=== PATIENT | male | born 1945 | race Caucasian/White ===

== ENCOUNTER → 2023-10-26 06:16 | Outpatient (REF) | payer OTHER, SELFPAY ==
[2023-10-26 07:37] LABS: % Basophils 0.9 % (0-2); % Eosinophils 2.3 % (0-6); % Immature Granulocytes 0.4 % (0-0.5); % Lymphocytes 27.1 % (20.5-51.1); % Monocytes 12.2 % (1.7-9.3); % Neutrophils 57.1 % (42.2-75.2); Absolute Basophils 0.1 10^3/uL (0-0.2); Absolute Eosinophils 0.1 10^3/uL (0-0.7); Absolute Lymphocytes 1.5 10^3/uL (1.2-3.4); Absolute Monocytes 0.7 10^3/uL (0.1-0.6); Absolute Neutrophils 3.2 10^3/uL (1.4-6.5); Hematocrit 37.7 % (39.0-52.0); Hemoglobin 12.9 g/dL (13.0-18.0); Mean Corp Hgb Conc. 34.2 g/dL (33.0-37.0); Mean Corpuscular Hgb 31.5 pg (27.0-31.0); Mean Platelet Volume 11.4 fL (7.4-10.4); Nucleated Red Blood Cells % 0 % (-); Platelet Count 159 10^3/uL (130-400); Red Cell Dist. Width 13.5 % (11.5-14.5); White Blood Cell Count 5.6 10^3/uL (4.8-10.8)
[2023-10-26 08:18] LABS: ALT (SGPT) 26 U/L (0-50); AST (SGOT) 34 U/L (17-59); Albumin 4.1 g/dl (3.5-5.0); Alkaline Phosphatase 80 U/L (38-126); Blood Urea Nitrogen 22 mg/dl (9-20); Calcium 8.9 mg/dl (8.4-10.2); Carbon Dioxide 26 mmol/L (22-30); Chloride 111 mmol/L (98-107); Glucose 97 mg/dl (70-99); HDL Cholesterol 56 mg/dl; LDL Cholesterol, Calculated 80 mg/dl; Potassium 3.8 mmol/L (3.5-5.1); Sodium 139 mmol/L (135-145); Total Bilirubin 0.9 mg/dl (0.2-1.3); Total Cholesterol 145 mg/dl (50-199); Triglyceride 49 mg/dl (10-149); Very Low Density Lipoprotein 9 mg/dl (0-30); eGFR > 60.00
[2023-10-26 08:38] LABS: TSH Reflex To Free T4 4.21 uIU/ml (0.47-4.68)
[2023-10-26 08:45] LABS: Glycohemoglobin (HgbA1c) 6.9 % (4.0-5.6)
== END ==
LOC: REG 06:16
PROVIDERS: ATTENDING PHYSICIAN Family Medicine
DX: E10.59 Type 1 diabetes mellitus with other circulatory complications (principal); I50.32 Chronic diastolic (congestive) heart failure; I25.10 Atherosclerotic heart disease of native coronary artery without angina pectoris; G70.00 Myasthenia gravis without (acute) exacerbation; E03.9 Hypothyroidism, unspecified; H25.9 Unspecified age-related cataract
CPT/HCPCS: 36415; 80053; 80061; 83036; 84443; 85025

== ENCOUNTER 2023-12-06 12:46 | Inpatient (IN) | payer OTHER, SELFPAY ==
[2023-12-06] VITALS (27 sets, daily range): BP systolic 94–148; BP diastolic 49–85; BMI 26.1
--- NOTE | 2023-12-06 09:36 | ED.GENMED ---
History of Present Illness
General
Chief Complaint: Swallowing Problem
Source: patient
Exam Limitations: none
Time Seen by Provider: 12/06/23 08:58
Nursing documentation reviewed up to this point in time: agreed with
Travel History
Have you had any contact with someone who has COVID-19?: No
Do you have any symptoms of coronavirus? Fever > 100 degrees, chills, cough, shortness of breath, sore throat, loss of taste or smell, muscle aches, or headache?: No
History of Present Illness
History of Present Illness:
The patient is a very nice 78-year-old man who arrives from home by ambulance after complaining that he is unable to swallow any pills this morning. Patient attributes this to an exacerbation of his myasthenia gravis. He reports that he woke up
early this morning with a low blood sugar. He reports he tried to drink orange juice and had difficulty swallowing the juice and developed a burning taste in his throat. He reports he was able to finally get some food down to raise his blood
sugar. He reports that he later tried to take his medication and was unable to swallow the pills. He reports he was recently started on infusions for his myasthenia gravis but unfortunately developed a rash so they were discontinued by Dr. Blue.
He reports that Dr. Blue recently ordered him new medication for his myasthenia gravis but his insurance company has not yet agreed to cover it. He reports he also has weakness getting words out but he does not feel that this is worse today than
usual. He denies any weakness of his arms and legs. He reports he is not had any difficulty walking.
Past History
Past History
ED Past Medical History: Arrthythmia (SA node dysfunction), CAD, HTN, Hypercholesterolemia, IDDM, Hypothyroidism and Other (Cricopharyngeus bar)
ED Past Surgical History: Cardiac (medtronic pacemaker 2007) and Other
Social History
Tobacco: Non-smoker
Alcohol: None
Drug: None
Personal: Other
Living: alone
Employment: Retired
Family History
Family History: Other (Sister with diabetes)
Review of Systems
Review of Systems
Allergies reviewed?: Yes
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
All Other Systems: ROS reviewed and negative except as documented in HPI and ROS
Constitutional: Reports no symptoms
EENT: Reports other
Respiratory: Reports no symptoms
Cardiac: Reports no symptoms
ABD/GI: Reports no symptoms
: Reports no symptoms
Musculoskeletal: Reports no symptoms
Skin: Reports no symptoms
Neurological: Reports no symptoms
Endocrine: Reports no symptoms
Hematologic/Lymphatic: Reports no symptoms
Psychiatric: Reports no symptoms
Phy Exam
Physical Exam
Physical Exam:
Physical Exam
General: no apparent distress, not acutely ill
Neck: supple. no meningeal signs. normal psoterior pharynx
Heart: s1/s2 regular rate and rhythm, no murmur. equal radial pulses.
Lungs: no acute respiratory distress. clear bilaterally
Abdomen: normal bowel sounds. not tender. no CVAT
Neuro: alert and oriented3. no focal neurological deficits. 5 out of 5 strength in all extremities without drift.
Skin: no rash
Psychiatric: well kept. interactive and cooperative
Extremities: no edema. no calf tenderness. negative homans. good distal pulses
Course
Orders/Labs/Results
Orders:
Orders
12/06/23 09:44
Consult Neurology [NEUROLOGY CONSULT] Urgent
Consulting Provider: Dariel Del Rio
Was physician already notified: Yes
Reason for consult: myasthenia gravis flare
12/06/23 09:49
Complete Blood Count/With Diff Urgent
Comprehensive Metabolic Panel Urgent
Abnormal Lab Results
12/06/23
09:49
WBC 4.6 L 10^3/uL
(4.8-10.8)
RBC 4.40 L 10^6/uL
(4.70-6.10)
MPV 11.3 H fL
(7.4-10.4)
Monocytes % 11.9 H %
(1.7-9.3)
Glucose 123 H mg/dl
(70-99)
12/06/23 09:49
12/06/23 09:49
Vital Signs
Initial and Last Documented VS:
Initial Vital Signs
BP
148/64
12/06/23 08:50
Last Documented Vital Signs
Temp Pulse Resp BP Pulse Ox
98.0 F 71 14 130/64 97
12/06/23 08:51 12/06/23 10:30 12/06/23 10:30 12/06/23 10:00 12/06/23 10:30
MDM/Problems Addressed
Differential Diagnosis Includes:
Myasthenia gravis flare, stroke, acute pharyngitis
MDM/Problems Addressed:
Patient presents with acute difficulty swallowing
Chronic conditions affecting care:
Myasthenia gravis
Acute Exacerbation and/or Progression of Chronic Illness:
Patient symptoms likely are consistent with acute on chronic myasthenia gravis
*Pulse Oximetry
Patient hypoxic: no
*EKG
Interpreted by ED Provider?: NA
*Juice Mixer Interpretation
Rate: Juice Mixer- N/A
*Critical Care Note
Total Time (30-74mins, 75-104mins- exclusive of procedures): Not Applicable
Data Reviewed
Review of Other/Old Records Reveals: Discharge Summary (Patient's discharge summary reviewed from 09/12 with flare of myasthenia gravis and got steroids and IVIG)
Source: patient
Patient Management
Social determinants of health affecting care: Living situation
Discussion with other providers: Hospitalist and Other (Dr del rio from neuro saw patient at bedside in ED)
Escalation/DeEscalation of care consider admission/obs:
Pt will be admitted, janell because he is unable to self hydrate and take meds
ED Attending Note
-
Portions of this chart may have been created with voice recognition software.� Occasional wrong word or��sound alike� substitutions may have occurred due to the inherent limitations of voice recognition software.
Discharge Plan
Departure
Patient Disposition: Admit
Date of Disposition: 12/06/23
Time of Disposition: 11:00
Admit to: Med/Surg
Presentation/result/management discussed w/ accepting MD/DO: Hospitalist
Patient with high blood pressure during this ER visit?: Yes
Condition: Good
Covid-19: Not Applicable
Discharge Problem:
acute on chronic myasthenia gravis, myasthenia gravis flare, Dysphagia
Prescriptions:
No Action
atorvastatin 80 MG tablet
80 mg PO DAILY
levothyroxine 112 MCG tablet
112 mcg PO HS
amlodipine 5 MG tablet
5 mg PO DAILY
lisinopril 40 mg tablet
40 mg PO DAILY
clopidogrel 75 MG tablet
75 mg PO DAILY
clobetasol 0.05 % Ointment
1 applic TOPICAL DAILYPRN PRN (Reason: apply to B/L lower legs)
furosemide [Lasix] 20 mg Tablet
20 mg PO DAILYPRN PRN (Reason: swelling)
latanoprost 0.005 % Drops
1 drp BOTH EYES HS
aspirin 81 mg Tablet,Delayed Release (Dr/Ec)
81 mg PO DAILY
insulin aspart U-100 [Novolog U-100 Insulin aspart] 100 unit/mL Solution
0 unit SC .VIA PUMP
Patient Comments:
08/22/2023, patient uses an insulin pump and the units used depends on his carb intake and basal rate. Patient states that he changes his insulin roughly every 6-7 days and that he uses around 20-25 units a day on average.
metoprolol tartrate 25 mg Tablet
25 mg PO BID Qty: 60 0RF
pantoprazole [Protonix] 40 mg tablet,delayed release (DR/EC)
40 mg PO DAILY Qty: 30 0RF
pyridostigmine bromide 60 mg tablet
180 mg PO TID Qty: 270 0RF
Referrals:
Gary Norton MD [Family Provider] -
Interventions
Interventions:
*Risk Screen - Suicide Last Done: 12/06/23 08:51
*General Assessment Last Done: 12/06/23 08:51
*Neglect/Abuse Screening Last Done: 12/06/23 08:51
*ED COVID-19 Vaccine History Last Done: 12/06/23 08:51
ED-EENT Assessment Last Done: 12/06/23 08:51
JE-Euzhjd-Wfmqivflse Assessment Last Done: 12/06/23 08:51
ED- Pulmonary Assessment Last Done: 12/06/23 08:51
ED- Neurological Assessment Last Done: 12/06/23 08:51
ED Swallowing Screen Last Done: 12/06/23 08:51
Discharge Date and Time
Print Language: [place]AP[place]
[2023-12-06 10:09] LABS: % Basophils 1.5 % (0-2); % Eosinophils 3.7 % (0-6); % Immature Granulocytes 0.2 % (0-0.5); % Lymphocytes 29.1 % (20.5-51.1); % Monocytes 11.9 % (1.7-9.3); % Neutrophils 53.6 % (42.2-75.2); Absolute Basophils 0.1 10^3/uL (0-0.2); Absolute Eosinophils 0.2 10^3/uL (0-0.7); Absolute Lymphocytes 1.3 10^3/uL (1.2-3.4); Absolute Monocytes 0.6 10^3/uL (0.1-0.6); Absolute Neutrophils 2.5 10^3/uL (1.4-6.5); Hematocrit 40.5 % (39.0-52.0); Hemoglobin 13.4 g/dL (13.0-18.0); Mean Corp Hgb Conc. 33.1 g/dL (33.0-37.0); Mean Corpuscular Hgb 30.5 pg (27.0-31.0); Mean Platelet Volume 11.3 fL (7.4-10.4); Nucleated Red Blood Cells % 0 % (-); Platelet Count 202 10^3/uL (130-400); Red Cell Dist. Width 13.2 % (11.5-14.5); White Blood Cell Count 4.6 10^3/uL (4.8-10.8)
[2023-12-06 10:14] LABS: ALT (SGPT) 26 U/L (0-50); AST (SGOT) 36 U/L (17-59); Albumin 4.4 g/dl (3.5-5.0); Alkaline Phosphatase 83 U/L (38-126); Blood Urea Nitrogen 17 mg/dl (9-20); Calcium 9.4 mg/dl (8.4-10.2); Carbon Dioxide 29 mmol/L (22-30); Chloride 105 mmol/L (98-107); Estimated Creatinine Clearance 72 ml/min; Glucose 123 mg/dl (70-99); Potassium 4.2 mmol/L (3.5-5.1); Sodium 136 mmol/L (135-145); Total Protein 7.1 g/dl (6.3-8.2); eGFR > 60.00
--- NOTE | 2023-12-06 12:24 | HPS.HSE ---
Family Physician
-
Family Physician: Gary Norton
Chief Complaint
-
Swallowing difficulty
History of Present Illness
Patient with known history of myasthenia gravis on Pyridostigmine was recently receiving IV treatments( he doesnt know the mediation) since October for MS tx but had skin rash with the third infusion on that was discontinued. He is waiting for
approval for a new medication requested by his neurologist.
this morning he cannot swallow the pills. He knew that this is exacerbation of his myasthenia gravis. his blood sugars was low so he drank orange juice and had difficulty swallowing the juice.
He also was noticing on and off double vision. 2 weeks ago he had vertigo symptoms.
He also feels dizzy lightheaded when he bends forward. His balance is okay and his motor strength is okay.
No headache.
Denies any shortness of breath.
Denies any recent infection symptoms.
Medical History
Past Medical History
Past Medical History: Reports CAD, HTN, Hypercholesterolemia and IDDM
Past Surgical History: Reports Cardiac (pacemaker)
Social History
Tobacco: Non-smoker
Alcohol: None
Living: Alone
Employment: Retired
Family History
Family History: Not pertinent
Allergies / Home Medications
Allergies reflects when Allergies were last updated in [employer].
Home Medications with original date entered in [employer]
Allergy/Medication List:
Allergies
Allergy/AdvReac Type Severity Reaction Status Date / Time
efgartigimod mary-fcab Allergy Rash Verified 12/06/23 10:53
[From Damian]
Home Medications
atorvastatin 80 mg tablet 80 mg PO DAILY High cholesterol 04/28/15
levothyroxine 112 mcg tablet 112 mcg PO DAILY Thyroid 04/28/15
amlodipine 5 mg tablet 5 mg PO DAILY Blood pressure 01/09/22
clopidogrel 75 mg tablet 75 mg PO DAILY Blood clot prevention/tx 09/16/22
lisinopril 40 mg tablet 40 mg PO DAILY Blood pressure 09/16/22
clobetasol 0.05 % topical ointment 1 applic topical DAILYPRN PRN apply to B/L lower legs 08/06/23
furosemide 20 mg tablet (Lasix) 20 mg PO DAILYPRN PRN swelling 08/06/23
aspirin 81 mg tablet,delayed release 81 mg PO DAILY Blood Clot Prevention/Tx 08/22/23
insulin aspart U-100 100 unit/mL subcutaneous solution (Novolog U-100 Insulin aspart) 0 unit SC .VIA PUMP Diabetes 08/22/23
latanoprost 0.005 % eye drops 1 drp BOTH EYES HS Eye Condition 08/22/23
metoprolol succinate 50 mg tablet,extended release 24 hr 50 mg PO DAILY 12/06/23
pyridostigmine bromide 60 mg tablet 60 mg PO TID 12/06/23
Review of Systems
-
A 12 point ROS was completed and negative except as noted: Yes
Physical Exam
Vital Signs
Vital Signs
Temp Pulse Resp BP Pulse Ox
98.0 F 71 14 143/72 98
12/06/23 08:51 12/06/23 11:45 12/06/23 11:45 12/06/23 11:00 12/06/23 11:45
Physical Exam
General: No Apparent Distress
HEENT: Moist mucous membranes
Respiratory: Clear
Cardiac: S1/S2 and Regular Rhythm
GI: Soft, Non Tender, Non Distended and Normal Bowel Sounds
Neuro: AO x 3, No Motor Deficits and Other (no nystagmus); No Slurred Speech, Facial Droop or Tremors
Psych: Calm
Laboratory Results
-
12/06/23 09:49
12/06/23 09:49
Laboratory Results
Total Bilirubin 1.0 mg/dl (0.2-1.3) 12/06/23 09:49
AST 36 U/L (17-59) 12/06/23 09:49
ALT 26 U/L (0-50) 12/06/23 09:49
Alkaline Phosphatase 83 U/L (38-126) 12/06/23 09:49
Data Reviewed
-
Lab Data: Labs Reviewed by me
Impression/Plan
-
Acute myasthenia gravis flare with the dysphagia and occasional diplopia. patient unable to take his own medication.
Admit to hospital. Neurology consult. Initiated on IV steroids and IVIG.
Consult speech and resume oral medicationa and diet if able.
Diabetes mellitus type 2-on insulin pump which will hold because of his dysphagia and n.p.o. status. Add sliding scale insulin.
CAD without any chest pain-continue with his home medication statins. On dual anti platelet agents as well as statins.
Hypertension-continue with his home medication
Hyperlipidemia-continue with his medication
Full code
[2023-12-06] MEDS: SOLU-MEDROL 258 MG IV (13:38)
--- NOTE | 2023-12-06 14:37 | CON.NEURO4 ---
Consultation - Neurology 4
-
CONSULTING PHYSICIAN: Alma Delia Mi
REFERRING PHYSICIAN: ER
DICTATED BY: Alma Delia Mi
DATE/TIME OF REQUEST: 12/06/23
DATE/TIME OF CONSULTATION: 12/06/23
Reason for Consultation: Dysphagia, history myasthenia gravis
History of Present Illness:
Patient is an 78-year-old male with a past ministry of coronary artery disease hypertension, diabetes and antibody positive myasthenia gravis who presents to the hospital with dysphagia and not being able take all his pills properly this morning.
Patient had been seen by myself and neurology colleagues in August for presumed flare of myasthenia gravis treated with IVIG and steroids and he did show improvement, was able to be discharged without any PEG tube.
After discharge she was started on Vygart/Efgartidomod Reginald as an immune therapy for control of myasthenia gravis and he had his second dose in the early part of October approximately 10/31 but did have development of rash on his abdomen after this so
has been stopped from that medication. Plan per his regular neurologist Dr Blue was to get a different immune medication for myasthenia gravis (Rozanolixizumab/Rystiggo) and is still pending approval at this time he has not received his first dose
of this.
Patient does say he thinks he had a GI virus around 2 weeks ago that he has recovered from he has not have any further nausea or diarrhea or abdominal pain.
.
Patient does not take any prednisone on a chronic basis but does take his Mestinon regularly.
He does notice some intermittent diplopia.
He is not having any dysphagia over the past several days to few weeks like he had this morning
Past Medical History: Antibody positive myasthenia gravis, insulin dependent diabetes mellitus, hypertension, coronary artery disease
Surgical History: Cardiac permanent pacemaker, PEG tube since removed
Family History: Non-contributory
Social History: Retired, lives on his own, no significant tobacco, no alcohol
Allergies: Efgartigimod reginald Rash on stomach
Review of Symptoms:
Patient denies any fever, headache, chest pain, shortness of breath, GI or symptoms.
Physical Exam:
Elderly man appears his stated age no signs of overt distress no head or neck trauma eyes are clear oropharynx is clear neck with no masses full range of motion heart rate regular breathing is unlabored and comfortable, abdomen soft nontender no
lower extremity edema or rashes
Neurologic Examination:
The patient is awake, alert and oriented x 3. He is able to follow commands and answer questions appropriately. On cranial nerve assessment, mild dysarthria present, no ptosis seen, pupils are 3 mm bilateral, round and reactive to light and
accommodation. Visual adams are full. Extraocular movements are intact, able to do sustained upgaze without problem. Facial sensations are intact and bilaterally symmetrical, there is no facial asymmetry. Hearing is intact bilaterally to normal
conversation volume. Tongue palate and uvula are midline. Sternocleidomastoid strengths are full bilaterally. Motor strengths are head and neck flexion 5/5, 5/5 bilateral upper and lower extremities on medical research [place] scale. There is no
drift or involuntary movement noted. Deep tendon reflexes are 2+ bilateral upper and lower extremities and Babinski is absent bilaterally. Coordination is intact by finger to nose bilaterally.
Impressions
Most likely a flare of myasthenia gravis manifesting with dysphagia. It is possible that his reported recent GI illness could have triggered this. Patient had adverse reaction to the previous immune medication for myasthenia gravis (Vygart given
in early October) and has not been started on a new immune medication yet but [facility]
Recommendations:
1. Neurologic checks
2. Monitor respiratory function with NIF and vital capacity once a day
3. Aspiration precautions
4. Speech therapy evaluations
5. Start 5 days of IVIG 0.4 g/kg dosing
6. Start 1000 mg IV methylprednisolone every 24 hours tentatively for 3 days total
7. Monitor blood glucose and may need adjustment in insulin regimen while on the high-dose steroid
8. Physical Occupational Therapy evaluations
Will follow
Discussed patient care with: Patient and ED
[2023-12-06] MEDS: GAMMAGARD 300 IV (15:00)
[2023-12-06 16:00] LABS: Glucose - Point of Care 105 mg/dl (70-99)
[2023-12-06] MEDS: NOVOLOG FLEXPEN-LOW RESISTANCE SC (16:00)
[2023-12-06] MEDS: NSS 1000 IV (17:38)
[2023-12-06 18:07] LABS: Glucose - Point of Care 133 mg/dl (70-99)
[2023-12-06] MEDS: LOVENOX 40 MG SC (18:25)
[2023-12-06] MEDS: XALATAN OPHTHALMIC SOLUTION 1 DROP BOTH EYES (22:18)
[2023-12-06 22:23] LABS: Glucose - Point of Care 256 mg/dl (70-99)
[2023-12-06 23:06] LABS: Glucose - Point of Care 251 mg/dl (70-99)
[2023-12-06] MEDS: TYLENOL 650 MG PO (23:37)
[2023-12-07] VITALS (16 sets, daily range): BP systolic 102–135; BP diastolic 39–84; PULSE 72–75; O2SAT 95
[2023-12-07] MEDS: ZOFRAN 4 MG IV (01:31)
[2023-12-07 06:21] LABS: Glucose - Point of Care 442 mg/dl (70-99)
[2023-12-07 06:51] LABS: Glucose 373 mg/dl (70-99)
[2023-12-07] MEDS: NOVOLOG FLEXPEN-LOW RESISTANCE 6 UNITS SC ×2 (07:55→12:33)
--- NOTE | 2023-12-07 08:23 | W.PN.NEURO.1 ---
Addendum entered and electronically signed by Dariel Mi MD 12/07/23 12:12:
I saw and evaluated the patient I reviewed the note by Harini Booth agree with the findings the following comments:
78-year-old male with pre-existing diagnosis of coronary artery disease diabetes hypertension antibody positive myasthenia gravis presented to hospital with likely myasthenia gravis flare manifesting with dysphagia. No acute events he did have
significant headache that is probably a side effect of IVIG and has had some hyperglycemia. He reports he needs some new glasses and vision is mildly improved with covering 1 eye.
Neurologic examination unchanged from previous, minimal dysarthria is present, no ptosis, no ophthalmoplegia, able to sustain upgaze, shoulder abduction 5/5.
Assessment: Myasthenia gravis flare manifesting mainly with dysphagia.
Patient had been tried on Vygart outpatient but had adverse reaction to this and is planned for different immune medication Rystiggo in outpatient setting. Flare may be due to uncontrolled disease versus effects of recent GI illness.
Recommendations
-Monitor clinically and respiratory function with Kniffen vital capacity
-Continue his home dosing of Mestinon if able to take p.o.
-IV therapies
-Second day of 5 days of IVIG
-Second day of 3 days of IV steroid consideration for low to moderate dose of chronic prednisone if he is able to take p.o.
-Speech therapy input appreciated
-Will need adjustment insulin regimen given steroids for myasthenia flare and pre-existing diabetes
Will follow
Original Note:
Today's Communication / Plan
-
.
Neuro Assessment/Plan
Assessment
Patient is an 78-year-old male with a PMH of CAD, HTN, IDDM, and antibody positive myasthenia gravis who presented to on 12/06/23 with report of dysphagia and not being able take all his pills properly this morning.
Patient had been seen by our Neurology service in August 2023 for presumed flare of myasthenia gravis treated with IVIG and steroids and he did show improvement, was able to be discharged without any PEG tube.
After discharge she was started on Vygart/Efgartidomod Mary as an immune therapy for control of myasthenia gravis and he had his second dose in the early part of October approximately 10/31 but did have development of rash on his abdomen after this so
has been stopped from that medication. Plan per his regular neurologist Dr Blue was to get a different immune medication for myasthenia gravis (Rozanolixizumab/Rystiggo) and is still pending approval at this time he has not received his first dose
of this.
Patient does say he thinks he had a GI virus around 2 weeks ago that he has recovered from he has not have any further nausea or diarrhea or abdominal pain.
.
Patient does not take any prednisone on a chronic basis but does take his Mestinon regularly.
Impressions:
Most likely a flare of myasthenia gravis manifesting with dysphagia. It is possible that his reported recent GI illness could have triggered this. Patient had adverse reaction to the previous immune medication for myasthenia gravis (Vyvgart given
in early October) and has not been started on a new immune medication yet but is pending approvals for Rystiggio.
Plan
-Check orthostatic vital signs BID given dizziness with standing.
-Continue IVIG x5 days total. Today is day 2/5.
-Continue methylprednisolone 1000mg IV tentatively for 3 days total. Today is day 2/3.
-Will need close blood glucose monitoring/treatment in the setting of Type 1 diabetes and IV steroid usage.
-NIF, VC testing daily.
-Neurological checks per unit guidelines.
-PT/OT/ST evaluations.
-Aspiration precautions. Consideration for dobhoff tube placement, he required this last admission.
-When able to tolerate oral medications, resume pyridostigmine 60mg TID.
-DVT prophylaxis.
-Will follow.
Subjective/Objective
Subjective Data
Date of Service: December 07, 2023
No acute events overnight. Patient reports having a headache last night that has no resolved. He still reports frequent phlegm accumulation in the back of his throat and difficulty swallowing. He reports rare double vision and dyspnea especially
with exertion. He also reports feeling dizzy when he stands up, he describes this as a spinning sensation. He denies any speech difficulty, nausea, numbness, weakness, chest pain, and palpitations.
Objective Data
Vital Signs
Temp Pulse Resp BP Pulse Ox
98.0 F 81 24 114/47 98
12/06/23 23:35 12/07/23 07:24 12/07/23 07:24 12/07/23 07:24 12/07/23 02:30
Lab Results
12/06/23 09:49
12/07/23 06:25
Sodium 136 mmol/L (135-145) 12/06/23 09:49
Potassium 4.2 mmol/L (3.5-5.1) 12/06/23 09:49
BUN 17 mg/dl (9-20) 12/06/23 09:49
Glucose 373 mg/dl (70-99) H 12/07/23 06:25
Calcium 9.4 mg/dl (8.4-10.2) 12/06/23 09:49
Patient Allergies
efgartigimod mary-fcab [From Vyvgart] Allergy (Verified 12/06/23 10:53)
Rash
Review of Systems
-
History Source: Patient
EENT: Swallowing Difficulty; Negative Blurry Vision or Decreased Vision
Respiratory: Trouble Breathing; Negative Cough
Cardiac: Negative Chest Pain or Palpitations
Abdomen/GI: Negative Nausea or Diarrhea
Genitourinary: Negative Difficulty Voiding
Neuro: Dizzy; Negative Headache, Weakness, Numbness, Ataxia or Speech Problem
Physical Exam
-
General: No Apparent Distress
Eyes: No Ptosis and PERRLA
HEENT: Normocephalic and Atraumatic
Neck: Full Range of Motion
Respiratory: Negative No Dyspnea
GI: Non-distended
Extremities: No Clubbing, No Cyanosis and No Edema
Psych: Unremarkable
Extended Neurological Exam
Mood & Affect: Mood Unremarkable and Affect Unremarkable
Attention Span & Concentration: Awake, Alert and Interactive
Memory: Unremarkable (AAOx3) and Able to Recall
Tremor: Hand Tremor Absent and Head Tremor Absent
Involuntary Movement: None
Speech: Quality Unremarkable, Quantity Unremarkable and Rate of Production Unremarkable
Cranial Nerve II: Left Eye: Pupillary Reactivity Unremarkable, Pupillary Size Unremarkable and Visual Nelson Intact
Cranial Nerve II: Right Eye: Pupillary Reactivity Unremarkable, Pupillary Size Unremarkable and Visual Nelson Intact
Cranial Nerves III, IV, : Extraocular Movement: Extraocular Movement Full in all Directions
Cranial Nerve VII: Facial Symmetry: Normal Facial Symmetry
Cranial Nerve VIII: Hearing: Unremarkable Hearing to Normal Conversational Volume
Cranial Nerves IX, X: Palate Movement: Palate Elevation Symmetric
Cranial Nerve XI: Shoulder Shrug: Unremarkable
Cranial Nerve XII: Tongue Protusion: Midline
Muscle Strength, Overall: Full Throughout (neck ext/flex 5/5)
Muscle Bulk & Tone: Bulk Unremarkable and Tone Unremarkable
Pronator Drift: No Drift in Upper Extremities and No Drift in Lower Extremities
Coordination: Efwapj-gfzb-bipcyk Testing Unremarkable
Data Reviewed
-
Orthostatic Testing: Ordered
Labs: Report Reviewed
HgbA1C: Report Reviewed
Reviewed with: Physician and Patient
Medications
-
Active Medications
Generic Name Dose Route Start Last Admin
Trade Name Freq PRN Reason Stop Dose Admin
Acetaminophen 650 mg 12/06/23 15:30 12/06/23 23:37
Acetaminophen 325 Mg Tablet PO 01/03/24 15:29 650 mg
Q4HPRN PRN Administration
mild pain /fever >100.4
Amlodipine Besylate 5 mg 12/07/23 08:00 12/07/23 09:01
Amlodipine 5 Mg Tablet PO 01/04/24 07:59 Not Given
DAILY JACEK
Aspirin 81 mg 12/07/23 08:00 12/07/23 09:01
Aspirin 81 Mg (Enteric Coated) Tablet PO 01/04/24 07:59 Not Given
DAILY JACEK
Atorvastatin Calcium 80 mg 12/07/23 08:00 12/07/23 09:01
Atorvastatin (Lipitor) 80 Mg Tablet PO 01/04/24 07:59 Not Given
DAILY JACEK
Clopidogrel Bisulfate 75 mg 12/07/23 08:00 12/07/23 09:02
Clopidogrel 75 Mg Tablet PO 01/04/24 07:59 Not Given
DAILY JACEK
Dextrose 12.5 grams 12/06/23 15:30
Dextrose 50% (0.5 Grams/Ml) 50 Ml Syringe IV 01/03/24 15:29
[id number] PRN
hypoglycemia
Protocol
Enoxaparin Sodium 40 mg 12/06/23 18:00 12/06/23 18:25
Enoxaparin Sodium 40 Mg/0.4 Ml Syringe SC 01/03/24 17:59 40 mg
QPM JACEK Administration
Furosemide 20 mg 12/06/23 15:30
Furosemide 20 Mg Tablet PO 01/03/24 15:29
DAILYPRN PRN
swelling
Glucagon 1 mg 12/06/23 15:30
Glucagon 1 Mg Vial IM 01/03/24 15:29
PRN PRN
hypoglycemia
Protocol
Methylprednisolone Sodium 258 mls @ 258 mls/hr 12/06/23 14:00 12/06/23 13:38
Succinate 1,000 mg/ Sodium IV 12/09/23 13:59 258 mls
Chloride Q24H JACEK Administration
Sodium Chloride 1,000 mls @ 60 mls/hr 12/06/23 15:30 12/07/23 09:08
Nss IV 1,000 mls
[id number] JACEK Administration
Immune Globulin 30 grams in 300 mls @ 0 mls/hr 12/07/23 08:20 12/07/23 08:45
Gammagard IV 01/03/24 14:59 300 mls
PER PROTOCOL JACEK Administration
Protocol
As Directed
Insulin Aspart 0 units 12/06/23 16:30 12/07/23 07:55
Insulin Aspart Low Resistance 300 Units/3 Ml Pen.Injctr SC 01/03/24 16:29 6 units
AC JACEK Administration
Protocol
Latanoprost 0 drop 12/06/23 22:00 12/06/23 22:18
Latanoprost 0.005% (Ophthalmic Solution) 2.5 Ml Bottle BOTH EYES 01/03/24 21:59 1 drop
HS JACEK Administration
Levothyroxine Sodium 112 mcg 12/07/23 06:00 12/07/23 06:40
Levothyroxine 112 Mcg Tablet PO 01/04/24 05:59 Not Given
DAILY @ 0600 JACEK
Lisinopril 40 mg 12/07/23 08:00 12/07/23 09:02
Lisinopril 20 Mg Tablet PO 01/04/24 07:59 Not Given
DAILY JACEK
Metoprolol Succinate 50 mg 12/07/23 08:00 12/07/23 09:02
Metoprolol 50 Mg Extended Release Tablet PO 01/04/24 07:59 Not Given
DAILY JACEK
Non-Formulary Medication 1 applic 12/06/23 15:30
Clobetasol TOPICAL
DAILYPRN PRN
apply to B/L lower legs
Pyridostigmine Blaine 60 mg 12/06/23 16:00 12/07/23 09:01
Pyridostigmine 60 Mg Tablet PO 01/03/24 15:59 Not Given
TID JACEK
Sodium Chloride 0 flush 12/06/23 17:00
Sodium Chloride 0.9% (Flush) Syringe IV 01/03/24 16:59
PER PROTOCOL JACEK
Home Medications
�Medication �Instructions �Recorded
atorvastatin 80 mg tablet 80 mg PO DAILY High cholesterol 04/28/15
levothyroxine 112 mcg tablet 112 mcg PO DAILY Thyroid 04/28/15
amlodipine 5 mg tablet 5 mg PO DAILY Blood pressure 01/09/22
clopidogrel 75 mg tablet 75 mg PO DAILY Blood clot 09/16/22
prevention/tx
lisinopril 40 mg tablet 40 mg PO DAILY Blood pressure 09/16/22
clobetasol 0.05 % topical ointment 1 applic topical DAILYPRN PRN 08/06/23
apply to B/L lower legs
furosemide 20 mg tablet (Lasix) 20 mg PO DAILYPRN PRN swelling 08/06/23
aspirin 81 mg tablet,delayed 81 mg PO DAILY Blood Clot 08/22/23
release Prevention/Tx
insulin aspart U-100 100 unit/mL 0 unit SC .VIA PUMP Diabetes 08/22/23
subcutaneous solution (Novolog
U-100 Insulin aspart)
latanoprost 0.005 % eye drops 1 drp BOTH EYES HS Eye Condition 08/22/23
metoprolol succinate 50 mg 50 mg PO DAILY 12/06/23
tablet,extended release 24 hr
pyridostigmine bromide 60 mg tablet 60 mg PO TID 12/06/23
[2023-12-07] MEDS: GAMMAGARD 300 IV (08:45)
[2023-12-07] MEDS: NSS 1000 IV (09:08)
--- NOTE | 2023-12-07 09:10 | PTOTSP ---
Speech Language Pathology
Pt seen for clinical bedside swallow evaluation. Pt well known to [employer] at with multiple previous VSEs (08/28/23, 08/23/23, 02/09/23, 11/17/22, 09/22/22, 09/18/22). Dysphagia has varied greatly based on myasthenia gravis severity. Pt dry heaving post HOB
being raised slightly. He reported significant dizziness. Some confused conversation noted. P.O. trials of ice chips, thin liquids via cup, and 1/4 tsp of puree provided. Frequent throat clear with all P.O. Reported pharyngeal retention post
puree.
Recommend:
(1) NPO
(2) Allow ice chips post oral care per Aspiration Risk Hydration Protocol (ARHP)
(3) Non-oral meds
(4) [employer] to continue to follow
--- NOTE | 2023-12-07 09:16 | EDRN ---
Pt was unable to tolerate PO meds. Speech eval at bedside. Pt coughing and retching intermittently.
[2023-12-07 09:30] LABS: Glycohemoglobin (HgbA1c) 7.3 % (4.0-5.6)
--- NOTE | 2023-12-07 12:08 | W.PN.HOSP.TC ---
Today's Communication/Plan
-
needs 5 days of IVIG and IV steroids
apprec neuro/speech
consult GI for Dobhoff
Assessment / Plan
Assessment / Plan
pt is an 78 year old male
Acute myasthenia gravis flare with the dysphagia and occasional diplopia--seen by neuro--day 2 of IVIG and IV steroids--seen by speech--not safe for PO intake, only ice chips
Diabetes mellitus type 2-on insulin pump which will hold because of his dysphagia and n.p.o. status. Add sliding scale insulin--may need DM PHYSIOTHERAPY AIDE
CAD without any chest pain--continue with his home medication statins--On dual anti platelet agents as well as statins.
Essential Hypertension-continue with his home medication
Hyperlipidemia-continue with his medication
Full code
Anticipated Discharge: > 48 hours
Subjective/Interval History
-
Date of Service: December 07, 2023
pt had 'rough' night
Objective Data
-
Labs:
Laboratory Results
12/07/23
06:25
Glucose 373 H
Vital Signs:
max temp for 24 hours
12/06/23
23:35
Temp 98.0 F
Vital Signs
Temp Pulse Resp BP Pulse Ox
98.0 F 70 17 111/43 98
12/06/23 23:35 12/07/23 11:00 12/07/23 11:00 12/07/23 10:00 12/07/23 02:30
Review of Systems
-
All other systems: Reviewed and negative
Physical Exam
-
General: Well Developed, Well Nourished and No Apparent Distress
HEENT: Normocephalic and Atraumatic
Respiratory: Clear to Auscultation; Negative Wheezes or Rhonchi
Cardiac: Regular Rhythm and S1/S2; Negative Murmur
GI: Soft, Nontender, Nondistended and Normal Bowel Sounds
Musculoskeletal: No Clubbing, No Cyanosis and No Edema
Neuro: Awake and Alert
[2023-12-07 12:19] LABS: Glucose - Point of Care 576 mg/dl (70-99)
[2023-12-07 12:57] LABS: Glucose 536 mg/dl (70-99)
--- NOTE | 2023-12-07 13:33 | PN.DE.MGMTRT ---
Insulin Management
- -
12/07/2023: Diabetes Management Consult:
78 year old male known to me from previous hosp admissions, presented to hospital with likely myasthenia gravis flare manifesting with dysphagia.
Pt states that he has had difficulty with both solid and liquid food as well as his oral medications.
PMH includes: HTN, HLD, CAD, CHF, hypothyroidism, antibody positive myasthenia gravis, IDDM, A1C 7.3%, was 7.1% on 06/06/23.
Was using TableGrabber 780G pump with NovoLog insulin, Quick Sets and CGM prior to admission, reports that pump was discontinued this morning and was taken home with family. He follows with Dr. Subramanian and sees Levar Alvarez.
He has been started on 5 day course of IVIG and a 3 day course of high dose IV steroids-->Steroid induced Hyperglycemia.
Pt seen in the ED, resting in bed in 90 degree position, He is Awake, A/O x3, states he is fatigued and reports a dry minor cough with any body movement.
He is currently NPO, s/p Dobhoff tube placement. Plan to start Tube feeds.
His glucose levels have trended up as high as 576 with initiation of steroids.
I expect that he will have elevations in his glucose levels due to the IV Steroids and tube feeds.
Will start basal/bolus insulin. Give NovoLog 20 units and Lantus 15 units now. Then start Lantus 30 units BID and NovoLog 10 units Q6 hrs. Change from high corrective to moderate corrective insulin.
Instructed pt to have family bring in his insulin pump on Sunday with plans to resume it on Sunday
Will closely follow and make basal rate adjustments as needed
Diabetes History
- -
Type of Diabetes: 1
Pre-Admission Diabetes Regimen
Lab Results
Hemoglobin A1c 7.3 % (4.0-5.6) H 12/07/23 04:54
Insulin Pump Settings
IP Diabetes Regimen
04/12/06/23 12/06/23
15:59 18:06 22:15
Glucose
POC Glucose 105 H 133 H 256 H
12/06/23 12/07/23 12/07/23
23:05 06:17 06:25
Glucose 373 H
POC Glucose 251 H 442 H
12/07/23 12/07/23
12:19 12:32
Glucose 536 H*
POC Glucose 576 H*
Patient Education
--- NOTE | 2023-12-07 13:37 | W.PN.UPDATE ---
Update Note
Progress Note Update
Asked to place Dobbhoff tube as patient failed GARAGE DOOR OPENER INSTALLER eval. Patient in MG flare. Dobbhoff tube successfully placed in right nare, secured and measured at 55 cm from nare opening. CXR confirmed placement. Tube flushed and stylet removed. Dobbhoff tube
okay to use. Discussed with IM Attending. Please call back if GI can be of further assistance.
[2023-12-07 14:27] LABS: Glucose - Point of Care > 600 mg/dl (70-99)
[2023-12-07] MEDS: NOVOLOG FLEXPEN 10 UNITS SC ×2 (14:28→14:40)
[2023-12-07] MEDS: LANTUS 0.149999999999999994 UNITS SC (14:28)
[2023-12-07] MEDS: SOLU-MEDROL 258 MG IV (14:49)
[2023-12-07 15:25] LABS: Glucose - Point of Care > 600 mg/dl (70-99)
[2023-12-07 15:26] LABS: Glucose 587 mg/dl (70-99)
[2023-12-07 16:11] LABS: Glucose 575 mg/dl (70-99)
--- NOTE | 2023-12-07 16:22 | EDRN ---
Pt continues hyperglycemic after SQ insulin doses, Hospitalist and DM MILIEU COORDINATOR notified and aware.
[2023-12-07 17:10] LABS: Glucose - Point of Care 591 mg/dl (70-99)
[2023-12-07] MEDS: LOVENOX 40 MG SC (17:53)
--- NOTE | 2023-12-07 18:30 | W.PN.UPDATE ---
Update Note
Progress Note Update
Patient's sugars have been elevated. His insulin pump is off given his n.p.o. status. Diabetic nurse practitioner has been consulted for assistance, however, sugars remain high. This is likely due to the IV steroids. He has been started on
insulin drip and has been transferred to IMU.
--- NOTE | 2023-12-07 19:16 | PTCARENOTE ---
Received from 3rd floor, IMU monitors placed. Pt stood at bedside and dobhoff fell out- will pass on to nights. Stat BMP/glucose obtained and sent to lab. IVF at 60ml/hr and insulin gtt infusing at 6units/hr. Report off to media center assistant. VAT team
here - requested midline placement.
[2023-12-07 19:18] LABS: Blood Urea Nitrogen 72 mg/dl (9-20); Calcium 7.7 mg/dl (8.4-10.2); Carbon Dioxide 17 mmol/L (22-30); Chloride 103 mmol/L (98-107); Estimated Creatinine Clearance 22 ml/min; Glucose 555 mg/dl (70-99); Potassium 4.6 mmol/L (3.5-5.1); Sodium 129 mmol/L (135-145)
[2023-12-07] MEDS: NOVOLIN R INSULIN INFUSION 100 IV (19:45)
[2023-12-07 20:19] LABS: Glucose - Point of Care 547 mg/dl (70-99)
[2023-12-07 20:48] LABS: Glucose 511 mg/dl (70-99)
[2023-12-07 21:17] LABS: Glucose - Point of Care 548 mg/dl (70-99)
--- NOTE | 2023-12-07 21:22 | PTCARENOTE ---
Received pt at change of shift. Pt dobhoff had come out on arrival to IMU. Tube feedings not started. Notified BERTIN Rosenthal to let her know that the Dobhoff she placed on had come out. Unable to be replaced on assembler 1st shift.
Notified BERTIN Apple as well. Pt has insulin gtt running. SAMPLE ROOM SUPERVISOR changed standing order of 6 units/hr to a titratable gtt per unit protocols. Q1H accuchecks with blood draws being performed and titrating the gtt per order. Pt c/o of nausea.
Notified BERTIN. Unable to order meds d/t prolonged QTc. Unable to give PO medications this evening since dobhoff is no longer in place. Pt resting in bed will call meza in reach.
[2023-12-07 21:43] LABS: Glucose 473 mg/dl (70-99)
[2023-12-07 22:44] LABS: Glucose 451 mg/dl (70-99)
[2023-12-07 23:24] LABS: Glucose - Point of Care 411 mg/dl (70-99)
[2023-12-07 23:51] LABS: Glucose 405 mg/dl (70-99)
[2023-12-08] VITALS (9 sets, daily range): BP systolic 110–149; BP diastolic 54–69; BMI 24.6
[2023-12-08 00:29] LABS: Glucose - Point of Care 408 mg/dl (70-99)
[2023-12-08] MEDS: XALATAN OPHTHALMIC SOLUTION BOTH EYES (00:43)
[2023-12-08 00:44] LABS: Glucose 368 mg/dl (70-99)
[2023-12-08 01:29] LABS: Glucose - Point of Care 363 mg/dl (70-99)
[2023-12-08 02:29] LABS: Glucose - Point of Care 329 mg/dl (70-99)
[2023-12-08 03:31] LABS: Glucose - Point of Care 247 mg/dl (70-99)
[2023-12-08] MEDS: D5/0.45%NSS with KCL 10 MEQ 1000 IV ×2 (04:05→21:58)
[2023-12-08] MEDS: NSS IV (04:05)
[2023-12-08 04:31] LABS: Glucose - Point of Care 213 mg/dl (70-99)
[2023-12-08 05:31] LABS: Glucose - Point of Care 164 mg/dl (70-99)
[2023-12-08 05:36] LABS: Hemoglobin 11.7 g/dL (13.0-18.0); Mean Corp Hgb Conc. 34.4 g/dL (33.0-37.0); Mean Corpuscular Hgb 31.4 pg (27.0-31.0); Mean Corpuscular Volume 91.2 fL (80.0-94.0); Mean Platelet Volume 11.2 fL (7.4-10.4); Platelet Count 170 10^3/uL (130-400); Red Blood Cell Count 3.73 10^6/uL (4.70-6.10); Red Cell Dist. Width 13.4 % (11.5-14.5); White Blood Cell Count 8.9 10^3/uL (4.8-10.8)
[2023-12-08 06:03] LABS: ALT (SGPT) 28 U/L (0-50); AST (SGOT) 35 U/L (17-59); Alkaline Phosphatase 63 U/L (38-126); Blood Urea Nitrogen 82 mg/dl (9-20); Calcium 8.2 mg/dl (8.4-10.2); Carbon Dioxide 21 mmol/L (22-30); Chloride 107 mmol/L (98-107); Estimated Creatinine Clearance 24 ml/min; Glucose 151 mg/dl (70-99); Magnesium 2.2 mg/dl (1.6-2.3); Potassium 4.2 mmol/L (3.5-5.1); Sodium 136 mmol/L (135-145); Total Bilirubin 0.7 mg/dl (0.2-1.3); Total Protein 7.4 g/dl (6.3-8.2)
[2023-12-08 06:24] LABS: Glucose - Point of Care 149 mg/dl (70-99)
--- NOTE | 2023-12-08 07:30 | PTCARENOTE ---
pt vomited small amount at 0700. pox dropping as low as 82% on room air. oxygen placed at 5 liters nc. curtis at bedside. dr. patel notified. portable chest xray completed. empiric rocephin and flagyl started. pt with weak voice quality and
phonation. strict NPO for now. continuing to monitor
[2023-12-08 07:36] LABS: Glucose - Point of Care 137 mg/dl (70-99)
--- NOTE | 2023-12-08 08:24 | W.PN.HOSP.TC ---
Today's Communication/Plan
-
Dobhoff replaced
check CXR/abdom x-ray
change meds to tube
wean O2
PT/OT/speech
cont IVIG/IV steroids
start NSS and follow creat
renew insulin drip
Assessment / Plan
Assessment / Plan
pt is an 78 year old male
acute hypoxemic resp failure--think due to aspiration--on 5L O2--apprec resp therapy--wean O2 as able--check CXR--start PRN nebs
OMAR--creat went from 0.9 to 2.9--possibly due to elevated sugars, dehydration--less likely meds--hold lasix/lisinopril--give NSS 60 ml x 1 L--follow creat--if no better, consider renal consult--bladder scan
Diabetes mellitus type 2--on insulin pump which will hold because of his dysphagia and n.p.o. status--sugars ran very high with addition of steroids--asked DM EMPLOYEE HEALTH NURSE for assistance but needed insulin drip for better sugar control
Acute myasthenia gravis flare with the dysphagia and occasional diplopia--apprec neuro--day 3 of IVIG and IV steroids--seen by speech--not safe for PO intake, only ice chips--asked GI to place feeding tube (Dobhoff)--pulled out last night, replaced
this AM
CAD without any chest pain--continue with his home medication statins--On dual anti platelet agents as well as statins--changed meds to tube
Essential Hypertension--continue with his home medications as able
Hyperlipidemia--continue with his medication
Full code
updated son 12/08/23
Anticipated Discharge: > 48 hours
Subjective/Interval History
-
Date of Service: December 08, 2023
pt Dobhoff came out last night, vomited this AM with aspiration most likely
Objective Data
-
Labs:
Laboratory Results
12/07/23 12/07/23 12/07/23
20:20 21:21 22:18
WBC
Hgb
Hct
Plt Count
Sodium
Potassium
Chloride
Carbon Dioxide
BUN
Creatinine
Glucose 511 H* 473 H* 451 H*
Calcium
Total Bilirubin
AST
ALT
Alkaline Phosphatase
12/07/23 12/08/23 12/08/23
23:20 00:25 05:21
WBC 8.9
Hgb 11.7 L
Hct 34.0 L
Plt Count 170
Sodium 136
Potassium 4.2
Chloride 107
Carbon Dioxide 21 L
BUN 82 H
Creatinine 2.7 H
Glucose 405 H 368 H 151 H
Calcium 8.2 L
Total Bilirubin 0.7
AST 35
ALT 28
Alkaline Phosphatase 63
Vital Signs:
max temp for 24 hours
12/07/23
19:15
Temp 98.1 F
Vital Signs
Temp Pulse Resp BP Pulse Ox
97.8 F 71 15 121/61 96
12/08/23 03:04 12/08/23 04:25 12/08/23 04:25 12/08/23 04:25 12/08/23 04:25
Review of Systems
-
Unable to obtain full review of systems at this time due to: Acuity
Physical Exam
-
General: Well Developed, Well Nourished, No Apparent Distress and Slurred Speech
HEENT: Normocephalic, Atraumatic and Oxygen
Respiratory: Rhonchi (left base) and Decreased Breath Sounds (right base)
Cardiac: Regular Rhythm and S1/S2; Negative Murmur
GI: Soft, Nontender, Nondistended and Normal Bowel Sounds
Musculoskeletal: No Clubbing, No Cyanosis and No Edema
Skin: Warm
Neuro: Awake
Psych: Calm
[2023-12-08 08:39] LABS: Glucose - Point of Care 140 mg/dl (70-99)
--- NOTE | 2023-12-08 09:30 | PTCARENOTE ---
pt asking to get out of bed to bedside commode. per resp therapy, Nif evaluated to be improved. resp even and non-labored. patient's voice quality seems to be stronger; less garbled. oxygen trialed off; pox 96% room air. lung sounds clear. pt weak
but able to transfer with mod assist of 1. continuing to monitor
[2023-12-08 09:32] LABS: Glucose - Point of Care 145 mg/dl (70-99)
--- NOTE | 2023-12-08 09:43 | RESPNOTE ---
NIF and VC completed with patient this morning. best effort from NIF: -32 cmh20. best VC effort: 1.4mL or 50% of predicted. predicted VC of 2.8 used given age and height parameters.
[2023-12-08 10:40] LABS: Glucose - Point of Care 152 mg/dl (70-99)
--- NOTE | 2023-12-08 10:51 | W.PN.NEURO.1 ---
Addendum entered and electronically signed by Allison Mcwilliams DO 12/08/23 12:12:
Hold IVIG due to OMAR. Called [facility] and coordinated PLEX to start tomorrow.
Original Note:
Today's Communication / Plan
-
steroids day 3/3
ivig day 3/5
increase nif/vc to bid, consider bipap
Neuro Assessment/Plan
Assessment
Patient is an 78-year-old male with a PMH of CAD, HTN, IDDM, and antibody positive myasthenia gravis who presented to on 12/06/23 with report of dysphagia and not being able take all his pills properly.
Patient had been seen by our Neurology service in August 2023 for presumed flare of myasthenia gravis treated with IVIG and steroids and he did show improvement, was able to be discharged without any PEG tube.
After discharge she was started on Vygart/Efgartidomod Reginald as an immune therapy for control of myasthenia gravis and he had his second dose in the early part of October approximately 10/31 but did have development of rash on his abdomen after this so
has been stopped from that medication. Plan per his regular neurologist Dr Blue was to get a different immune medication for myasthenia gravis (Rozanolixizumab/Rystiggo) and is still pending approval at this time he has not received his first dose
of this.
Patient does say he thinks he had a GI virus around 2 weeks ago that he has recovered from he has not have any further nausea or diarrhea or abdominal pain.
.
Patient does not take any prednisone on a chronic basis but does take his Mestinon regularly.
Impressions:
MG exacerbation manifesting with dysphagia. It is possible that his reported recent GI illness could have triggered this. Patient had adverse reaction to the previous immune medication for myasthenia gravis (Vyvgart given in early October) and has
not been started on a new immune medication yet but is pending approvals for Rystiggio.
Plan
-Check orthostatic vital signs BID given dizziness with standing.
-Continue IVIG x5 days total. Today is day 35.
-Continue methylprednisolone 1000mg IV tentatively for 3 days total. Today is day 3.
-Will need close blood glucose monitoring/treatment in the setting of Type 1 diabetes and IV steroid usage. On insulin gtt now.
-NIF, VC testing -- increase to BID, consider BiPAP, will d/w Dr. Dougherty
-Neurological checks per unit guidelines.
-PT/OT/ST evaluations.
-Aspiration precautions. Has Dobhoff in place now.
-When able to tolerate oral medications, resume pyridostigmine 60mg TID.
-DVT prophylaxis.
-Will follow.
Critical care time 40 mins
Subjective/Objective
Subjective Data
Date of Service: December 08, 2023
reports some improvement in his speech and dysphagia overall; Dobhoff placed yesterday; now on insulin gtt with elevated sugars on IV steroids
Objective Data
Vital Signs
Temp Pulse Resp BP Pulse Ox
97.5 F 71 15 121/61 98
12/08/23 07:27 12/08/23 04:25 12/08/23 04:25 12/08/23 04:25 12/08/23 09:01
Lab Results
12/08/23 05:21
12/08/23 05:21
Sodium 136 mmol/L (135-145) 12/08/23 05:21
Potassium 4.2 mmol/L (3.5-5.1) 12/08/23 05:21
BUN 82 mg/dl (9-20) H 12/08/23 05:21
Glucose 151 mg/dl (70-99) H 12/08/23 05:21
Calcium 8.2 mg/dl (8.4-10.2) L 12/08/23 05:21
Patient Allergies
efgartigimod reginald-fcab [From Vyvgart] Allergy (Verified 12/06/23 10:53)
Rash
Physical Exam
-
Dobhoff in place
Mood & Affect: Mood Unremarkable and Affect Unremarkable
Attention Span & Concentration: Awake, Alert and Interactive
Memory: Unremarkable (AAOx3) and Able to Recall
Tremor: Hand Tremor Absent and Head Tremor Absent
Involuntary Movement: None
Speech: ++dysarthria
Cranial Nerve II: Left Eye: Pupillary Reactivity Unremarkable, Pupillary Size Unremarkable and Visual Nelson Intact
Cranial Nerve II: Right Eye: Pupillary Reactivity Unremarkable, Pupillary Size Unremarkable and Visual Nelson Intact
no ptosis
Cranial Nerves III, IV, : Extraocular Movement: Extraocular Movement Full in all Directions
Cranial Nerve VII: Facial Symmetry: Normal Facial Symmetry
Cranial Nerve VIII: Hearing: Unremarkable Hearing to Normal Conversational Volume
Cranial Nerves IX, X: Palate Movement: Palate Elevation Symmetric
Cranial Nerve XI: Shoulder Shrug: Unremarkable
Cranial Nerve XII: Tongue Protusion: Midline
Muscle Strength, Overall: Full Throughout (neck ext/flex 5/5)
Muscle Bulk & Tone: Bulk Unremarkable and Tone Unremarkable
Pronator Drift: No Drift in Upper Extremities and No Drift in Lower Extremities
Coordination: [id number] Testing Unremarkable
[2023-12-08] MEDS: NSS 1000 IV (11:02)
--- NOTE | 2023-12-08 11:42 | W.PN.UPDATE ---
Update Note
Progress Note Update
Patient's Dobbhoff was pulled accidentally last evening during change of shift. Notified by nursing at 8 PM last night. She also stated that patient had nausea. Discussed with her last evening to notify hospitalist on-call. Patient vomited over
scene shifter. Concerns for aspiration. Patient with desaturation currently on 5 L nasal cannula. Prior to placement of Dobbhoff patient was saturating at 97% on 5 L . Dobbhoff tube placed this a.m. at 0815. Dobbhoff placed in right nare without
any difficulty first attempt. This was secured at 60 cm. Nasal cannula replaced. Patient maintained saturation at 96% after Dobbhoff tube placement. X-ray performed that confirmed location. Tube flush stylette removed. Okay to use Dobbhoff.
Medicine attending notified.
[2023-12-08 11:43] LABS: Glucose - Point of Care 149 mg/dl (70-99)
--- NOTE | 2023-12-08 12:02 | CON.PUL ---
Consultation
Consultation Request
Date/Time Consultation Requested: 12-08-23
Date/Time Consultation Performed: 12-08-23
Requesting Provider: Hospitalist bob
Performing Provider: Dr Royal
Reason for Consultation: MG
Medical History
-
Chief Complaint: dysphagia
History of Present Illness:
Mr Shree Thomas is an 78/M adm 12-05 with dysphagia on DOA in setting of known h/o MG.
Follows with Neurology for Ab positive MG, had flare of MG in Aug, received IVIG and CS with improvement, did not require PEG, post d/c started on vygart/efgartidomod alpha, unfortunately developed skin rash, currently awaiting for approval of
rozanolixizumab/rystiggo, continues on chronic mestinon.
Started IVIG and IV MP pulse upon adm. Had to received DHT due to poor performance on bedside speech evaluation 12-06 (known h/o variable degrees of dysphagia on multiple prior VSEs). VC monitored since 12-05 (1.8L, 64% of predicted 2.8L), MIP
monitored since 12-06 (-20 cwp). Today VC 1.4L and MIP -32 cwp). Noted VC 2.27L and NIF -30 in Aug 7h
Past Medical History
Past Medical History: Other (see A&P for PMH/PSH)
Social History
Tobacco: Non-smoker
Alcohol: None
Drug: None
Living: Alone
Employment: Retired
Family History
Family History: Reviewed & Not Pertinent
Allergies / Home Medications
Allergies
Allergy/AdvReac Type Severity Reaction Status Date / Time
efgartigimod mary-fcab Allergy Rash Verified 12/06/23 10:53
[From Vyvgart]
Home Medications
�Medication �Instructions �Recorded �Confirmed �Last Taken �Type
atorvastatin 80 mg tablet 80 mg PO DAILY High cholesterol 04/28/15 12/06/23 12/05/23 History
levothyroxine 112 mcg tablet 112 mcg PO DAILY Thyroid 04/28/15 12/06/23 12/05/23 History
amlodipine 5 mg tablet 5 mg PO DAILY Blood pressure 01/09/22 12/06/23 12/05/23 History
clopidogrel 75 mg tablet 75 mg PO DAILY Blood clot 09/16/22 12/06/23 12/05/23 History
prevention/tx
lisinopril 40 mg tablet 40 mg PO DAILY Blood pressure 09/16/22 12/06/23 12/05/23 History
clobetasol 0.05 % topical ointment 1 applic topical DAILYPRN PRN 08/06/23 12/06/23 12/05/23 History
apply to B/L lower legs
furosemide 20 mg tablet (Lasix) 20 mg PO DAILYPRN PRN swelling 08/06/23 12/06/23 2 Days Ago History
~12/04/23
aspirin 81 mg tablet,delayed 81 mg PO DAILY Blood Clot 08/22/23 12/06/23 12/05/23 History
release Prevention/Tx
insulin aspart U-100 100 unit/mL 0 unit SC .VIA PUMP Diabetes 08/22/23 12/06/23 12/06/23 History
subcutaneous solution (Novolog
U-100 Insulin aspart)
latanoprost 0.005 % eye drops 1 drp BOTH EYES HS Eye Condition 08/22/23 12/06/23 12/05/23 History
metoprolol succinate 50 mg 50 mg PO DAILY Blood Pressure 12/06/23 12/06/23 12/05/23 History
tablet,extended release 24 hr
pyridostigmine bromide 60 mg tablet 60 mg PO TID myasthenia gravis 12/06/23 12/06/23 12/05/23 History
Review of Systems
-
History Source: Patient
All other systems: Negative unless noted
Constitutional: Fatigue
Neuro: Weakness
Vitals / Labs / Diagnostic Testing
Vital Signs
Temp Pulse Resp BP Pulse Ox
97.9 F 71 15 121/61 98
12/08/23 11:13 12/08/23 04:25 12/08/23 04:25 12/08/23 04:25 12/08/23 09:01
Lab Data
12/08/23 05:21
12/08/23 05:21
Diagnostic Testing:
Physical Exam
-
HEENT: Normocephalic and Moist Mucous Membranes
Cardiovascular: Regular Rhythm, Murmur (n) and Peripheral Edema
Respiratory: Clear and Non-Labored Respirations
GI: Soft, Non Distended and Non Tender
Neurology: Awake, Oriented, No Motor Deficits and Other (weak)
Skin: Warm
General: Respiratory Distress (n)
Assessment
-
Assessment:
Mr Shree Thomas is an 78/M adm 12-05 with dysphagia on DOA in setting of known h/o MG. Follows with Neurology for Ab positive MG, had flare of MG in Aug, received IVIG and CS with improvement, did not require PEG, post d/c started on
vygart/efgartidomod alpha, unfortunately developed skin rash, currently awaiting for approval of rozanolixizumab/rystiggo, continues on chronic mestinon. Started IVIG and IV MP pulse upon adm. Had to received DHT due to poor performance on bedside
speech evaluation 12-06 (known h/o variable degrees of dysphagia on multiple prior VSEs). VC monitored since 12-05 (1.8L, 64% of predicted 2.8L), MIP monitored since 12-06 (-20 cwp). Today VC 1.4L and MIP -32 cwp). Noted VC 2.27L and NIF -30 in Aug
7h
Impression:
MG flare
Dysphagia
OMAR
Vomit episode 12-07
Conditions IGNITION SPECIALIST:
MG, on pyridostigmine
Dysphagia s/p cricopharyngeal myotomy, past h/o PEG
CAD, s/p CABGx3
HTN
HLD
PPM
IDDM on insulin pump
Hypothyroidism
TIA 2011
Vertigo
Scoliosis
R TKR
Appendectomy
Hernia repair
Remote h/o pipe smoking
Plan:
Continue O2 protocol
Currently on NC 2L, POx 93%
Conversant in full sentences, no drooling
MG flare
On IVIG (D 10/22) and MP (D 3)
Held IVIG due to OMAR. For plasma exchange starting 12-08 (Neurology contacted [facility])
VC monitored since 12-05 (1.8L, 64% of predicted 2.8L)
MIP monitored since 12-06 (-20 cwp)
Today VC 1.4L and MIP -32 cwp
Noted VC 2.27L and MIP -30 in Aug 7h
Appears resp marcos stable at time of visit, clear MS, speaking in full sentences, no drooling
Keep asp precs
Continue monitoring VC and MIP
Atbs per adm svce: ceftriaxone/metronidazole IV since 12-07, per RN suspected aspiration
CXR 12-07: portable, short lung span, elevated R diaphragm (new), L PM, sternotomy wiring. GT
Keep asp precs
prn DNs
D/w Mr Thomas and [facility]U RN
[2023-12-08 12:44] LABS: Glucose - Point of Care 184 mg/dl (70-99)
[2023-12-08] MEDS: SOLU-MEDROL 258 MG IV (13:12)
[2023-12-08] MEDS: STERILE WATER FOR INJECTION 10 ML IV (15:12)
[2023-12-08] MEDS: ROCEPHIN 1000 MG IV (15:12)
[2023-12-08] MEDS: FLAGYL 500 MG 100 IV ×2 (15:12→20:08)
[2023-12-08 15:18] LABS: Glucose - Point of Care 144 mg/dl (70-99)
[2023-12-08] MEDS: LOPRESSOR TUBE (16:55)
[2023-12-08] MEDS: NOVOLOG FLEXPEN-MODERATE RESISTANCE 3 UNITS SC (17:02)
[2023-12-08] MEDS: MESTINON 60 MG TUBE ×2 (17:03→23:43)
[2023-12-08] MEDS: LOPRESSOR 12.5 MG TUBE ×2 (17:06→23:40)
[2023-12-08] MEDS: LOW STRENGTH ASPIRIN 81 MG TUBE (17:06)
[2023-12-08] MEDS: LOVENOX 40 MG SC (17:10)
[2023-12-08 17:11] LABS: Glucose - Point of Care 207 mg/dl (70-99)
[2023-12-08] MEDS: LANTUS 0.200000000000000011 UNITS SC (20:07)
[2023-12-08 20:17] LABS: Glucose - Point of Care 290 mg/dl (70-99)
[2023-12-08] MEDS: PHENERGAN 50.25 MG IV (23:40)
[2023-12-08] MEDS: XALATAN OPHTHALMIC SOLUTION 1 DROP BOTH EYES (23:43)
[2023-12-09] VITALS (20 sets, daily range): BP systolic 122–181; BP diastolic 58–148; BMI 24.5
--- NOTE | 2023-12-09 00:03 | PTCARENOTE ---
Pt c/o of chest pain while coughing in center of chest. No radiating pain. Notified CTE TEACHER. EKG ordered and obtained; Trop ordered and sent to lab. Pt also c/o nausea. Dose of phenergan administered per order (see MAR). Resting in bed with call
meza in reach.
[2023-12-09] MEDS: TYLENOL 650 MG TUBE (00:30)
[2023-12-09 00:54] LABS: Troponin I 0.016 ng/ml
--- NOTE | 2023-12-09 04:53 | PTCARENOTE ---
Holding cro meds that are given through tube. Pt is nauseous despite the Phenergan administered per order. Pt found little to no relief and still had 2 episodes of vomiting.
[2023-12-09] MEDS: LOPRESSOR TUBE (04:56)
[2023-12-09] MEDS: SYNTHROID TUBE (04:56)
[2023-12-09] MEDS: NSS 1000 IV (05:02)
[2023-12-09] MEDS: FLAGYL 500 MG 100 IV (05:02)
--- NOTE | 2023-12-09 08:00 | W.PN.HOSP.TC ---
Today's Communication/Plan
-
labs pending
plasmapheresis to start today
apprec all consultants' input
change rocephin/flagyl to zosyn (flagyl may be contributing to n/v)
tube feeds vs diet (pending speech recs)
Assessment / Plan
Assessment / Plan
pt is an 78 year old male
acute hypoxemic resp failure--think due to aspiration--on 4L O2--apprec resp therapy--wean O2 as able--CXR with retrocardiac atelectasis vs PNA (more likely as aspirated 12/07)--cont PRN nebs--rocephin/flagyl started (flagyl may contribute to
n/v)--will change to zosyn
OMAR--creat went from 0.9 to 2.9--possibly due to elevated sugars, dehydration--less likely meds--hold lasix/lisinopril--give NSS 60 ml x 1 L--follow creat--if no better, consider renal consult--bladder scan
Diabetes mellitus type 2--on insulin pump which will hold because of his dysphagia and n.p.o. status--sugars ran very high with addition of steroids--asked DM SALES REPRESENTATIVE [employer] for assistance but needed insulin drip for better sugar control --off insulin drip as
of 12/07 and started SQ lantus and mod SSI
Acute myasthenia gravis flare with the dysphagia and occasional diplopia--apprec neuro--day 4 of IVIG and IV steroids--seen by speech--not safe for PO intake, only ice chips--asked GI to place feeding tube (Dobhoff)--pulled out last night, replaced
this AM--creat increased so IVIG stopped in favor of plasmapheresis (starting 12/08) as per neuro
CAD without any chest pain--continue with his home medication statins--On dual anti platelet agents as well as statins--changed meds to tube
Essential Hypertension--continue with his home medications as able
Hyperlipidemia--continue with his medication
Full code
updated son 12/08/23
Anticipated Discharge: > 48 hours
Subjective/Interval History
-
Date of Service: December 09, 2023
pt c/o dry heaves--not tolerating tube feeds
Objective Data
-
Labs:
Laboratory Results
12/09/23
06:40
WBC Pending
Hgb Pending
Hct Pending
Plt Count Pending
Sodium Pending
Potassium Pending
Chloride Pending
Carbon Dioxide Pending
BUN Pending
Creatinine Pending
Glucose Pending
Calcium Pending
Total Bilirubin Pending
AST Pending
ALT Pending
Alkaline Phosphatase Pending
Vital Signs:
max temp for 24 hours
12/09/23
03:06
Temp 98.4 F
Vital Signs
Temp Pulse Resp BP Pulse Ox
98.4 F 70 22 154/69 94
12/09/23 03:06 12/09/23 04:00 12/09/23 04:00 12/09/23 02:00 12/09/23 04:00
I&O
12/08/23 12/09/23 12/10/23
06:59 06:59 06:59
Intake Total 1690 / 1690
Output Total 1450 / 1450
Balance 240 / 240
Review of Systems
-
All other systems: Reviewed and negative
Abdomen/GI: Reports Nausea and Vomiting
Physical Exam
-
General: Well Developed, Well Nourished and No Apparent Distress
HEENT: Normocephalic, Atraumatic and Other (Dobhoff feeding tube in place)
Respiratory: Decreased Breath Sounds (bases)
Cardiac: Regular Rhythm and S1/S2; Negative Murmur
GI: Soft, Nontender, Nondistended and Normal Bowel Sounds
Musculoskeletal: No Clubbing, No Cyanosis and No Edema
Neuro: Awake
[2023-12-09 08:10] LABS: Glucose - Point of Care 490 mg/dl (70-99)
[2023-12-09 08:11] LABS: Hematocrit 37.3 % (39.0-52.0); Hemoglobin 12.8 g/dL (13.0-18.0); Mean Corp Hgb Conc. 34.3 g/dL (33.0-37.0); Mean Corpuscular Volume 90.3 fL (80.0-94.0); Mean Platelet Volume 11.4 fL (7.4-10.4); Platelet Count 160 10^3/uL (130-400); Red Blood Cell Count 4.13 10^6/uL (4.70-6.10); White Blood Cell Count 10.9 10^3/uL (4.8-10.8)
[2023-12-09 08:24] LABS: ALT (SGPT) 37 U/L (0-50); AST (SGOT) 39 U/L (17-59); Albumin 4.1 g/dl (3.5-5.0); Alkaline Phosphatase 82 U/L (38-126); Blood Urea Nitrogen 57 mg/dl (9-20); Calcium 8.3 mg/dl (8.4-10.2); Carbon Dioxide 19 mmol/L (22-30); Chloride 112 mmol/L (98-107); Estimated Creatinine Clearance 46 ml/min; Glucose 442 mg/dl (70-99); Magnesium 2.3 mg/dl (1.6-2.3); Potassium 4.7 mmol/L (3.5-5.1); Sodium 139 mmol/L (135-145); Total Bilirubin 0.9 mg/dl (0.2-1.3); Total Protein 7.6 g/dl (6.3-8.2); eGFR 50.81
[2023-12-09] MEDS: NOVOLOG FLEXPEN-MODERATE RESISTANCE 11 UNITS SC (08:29)
[2023-12-09] MEDS: PHENERGAN 50.25 MG IV (08:30)
[2023-12-09] MEDS: LANTUS 0.200000000000000011 UNITS SC ×2 (08:32→20:19)
[2023-12-09] MEDS: ZOSYN 50 IV ×3 (08:34→20:19)
[2023-12-09] MEDS: CALCIUM GLUCONATE 10% INJECTION 289.5 GRAMS IV (09:06)
[2023-12-09] MEDS: CALCIUM GLUCONATE 10% INJECTION 289.5 MG IV (09:06)
--- NOTE | 2023-12-09 09:39 | PTCARENOTE ---
REd cross here many questions and requesting help with monitor .
[2023-12-09] MEDS: PLAVIX 75 MG TUBE (11:00)
[2023-12-09] MEDS: LOPRESSOR 12.5 MG TUBE ×2 (11:00→16:42)
[2023-12-09] MEDS: MESTINON 60 MG TUBE ×3 (11:00→21:28)
[2023-12-09] MEDS: LIPITOR 80 MG TUBE (11:00)
[2023-12-09] MEDS: NORVASC 5 MG TUBE (11:01)
[2023-12-09] MEDS: SYNTHROID 112 MCG TUBE (11:02)
[2023-12-09] MEDS: ZESTRIL 40 MG TUBE (11:02)
[2023-12-09] MEDS: LOW STRENGTH ASPIRIN 81 MG TUBE (11:03)
[2023-12-09 13:01] LABS: Glucose - Point of Care 369 mg/dl (70-99)
[2023-12-09] MEDS: NOVOLOG FLEXPEN-MODERATE RESISTANCE 9 UNITS SC ×2 (13:05→17:18)
--- NOTE | 2023-12-09 13:08 | W.PN.PUL3 ---
Addendum entered and electronically signed by Domingo Royal MD 12/09/23 14:12:
Correction/addendum to today's note:
VC monitored since 12-05 (1.8L, 64% of predicted 2.8L)
MIP monitored since 12-06 (-20 cwp)
12-07 VC 1.4L and MIP -32 cwp
Noted VC 2.27L and MIP -30 in Aug 7h
Continue monitoring VC and MIP
Patient declines maneuvers multiple times today due to nausea
D/w RT, retry to monitor VC, MIP
VC 1.3L, MIP -30 at 1:30 pm
Completed plasma exchange earlier this morning
Patient feels better re dyspnea as compared to earlier this morning and previous days
Low VC of less than 30 ml/kg of IBW, VC is still above 15 ml/Kg IBW
MIP stays at -30 which is less negative than -25 cwp
In spite of above numbers, clinically appears respiratory marcos improving, remains talkative, visiting with son and DIL at bedside. He has being treated for G flare since 12-05
Will continue monitoring VC and MIP, will check ABG at 6 pm on RA, patient aware
Original Note:
Today's Communication / Plan
-
O2
Asp precs
VC, MIP
Plasma exchange
Assessment
-
Assessment:
Mr Shree Thomas is an 78/M adm 12-05 with dysphagia on DOA in setting of known h/o MG. Follows with Neurology for Ab positive MG, had flare of MG in Aug, received IVIG and CS with improvement, did not require PEG, post d/c started on
vygart/efgartidomod alpha, unfortunately developed skin rash, currently awaiting for approval of rozanolixizumab/rystiggo, continues on chronic mestinon. Started IVIG and IV MP pulse upon adm. Had to received DHT due to poor performance on bedside
speech evaluation 12-06 (known h/o variable degrees of dysphagia on multiple prior VSEs). VC monitored since 12-05 (1.8L, 64% of predicted 2.8L), MIP monitored since 12-06 (-20 cwp). Today VC 1.4L and MIP -32 cwp). Noted VC 2.27L and NIF -30 in Aug
7h
Impression:
MG flare
Dysphagia
OMAR
Vomit episode 12-07
Conditions BRASS CHASER:
MG, on pyridostigmine
Dysphagia s/p cricopharyngeal myotomy, past h/o PEG
CAD, s/p CABGx3
HTN
HLD
PPM
IDDM on insulin pump
Hypothyroidism
TIA 2011
Vertigo
Scoliosis
R TKR
Appendectomy
Hernia repair
Remote h/o pipe smoking
Plan:
Continue O2 protocol
Currently on NC 2L, POx 92-93%
Conversant in full sentences, no drooling
MG flare
On IVIG (D 3/5) and MP (D 3/)
Held IVIG due to OMAR
Plasma exchange 12-08 (received [facility] HD cath)
VC monitored since 12-05 (1.8L, 64% of predicted 2.8L)
MIP monitored since 12-06 (-20 cwp)
Today VC 1.4L and MIP -32 cwp
Noted VC 2.27L and MIP -30 in Aug 7h
Appears resp marcos stable at time of visit, clear MS, speaking in full sentences, no drooling
Keep asp precs
Continue monitoring VC and MIP
Patient declines maneuvers multiple times today due to nausea
D/w RT, retry to monitor VC, MIP
Atbs per adm svce: ceftriaxone/metronidazole IV since 12-07, per RN suspected aspiration
CXR 12-07: portable, short lung span, elevated R diaphragm (new), L PM, sternotomy wiring. GT
Repeat CXR post HD cath: cath at [facility], no infiltrates or pneumothorax, R diaphragm remains elevated
Keep asp precs
prn DNs
D/w Mr Thomas and Kuldeep Doshi RN
Subjective Data
-
Date of Service:
Date of Service: December 09, 2023
Chief Complaint: Pulmonary Follow Up
Subjective:
Hemodialysis catheter placed by IR in anticipation of plasma exchange
Above discussed with Kuldeep Doshi RN who came today for possible exchange
Mild nausea but no cough or chest pain
Patient conversant, no drooling, in no obvious respiratory distress at time of visit
Review of Systems
General: Fever (n), Sweats (n), Chills (n) and Satisfactory Appetite (n)
HEENT: Dysphagia
Cardiopulmonary: Dyspnea (n), Cough (n), Wheezing (n) and Chest Pain
GI: Abdominal Pain (n) and Nausea (mild)
Neuro: Weakness
Objective Data
Data Reviewed
Vital Signs / I&O / Oxygen:
Vital Signs
Temp Pulse Resp BP Pulse Ox
98.4 F 79 19 122/65 96
12/09/23 07:55 12/09/23 12:00 12/09/23 12:00 12/09/23 12:00 12/09/23 12:00
Intake and Output
12/08/23 12/09/23 12/10/23
06:59 06:59 06:59
Intake Total 1690 / 1690 300 / 300
Output Total 1450 / 1450 750 / 750
Balance 240 / 240 -450 / -450
SaO2 96
Nasal Cannula flow liters per 94
minute
Physical Exam
General: Respiratory Distress (n)
HEENT: Normocephalic and Moist Mucous Membranes
Cardiovascular: Regular Rhythm, Murmur (n) and Peripheral Edema (n)
Respiratory: Rhonchi (trace), Non-Labored Respirations and Stridor (n)
GI: Soft, Non Distended and Non Tender
Neurology: Awake, AO x 3 and Other (weak)
Skin: Warm
Labs/Micro/Reports
Lab Data
12/09/23 08:03
12/09/23 08:03
--- NOTE | 2023-12-09 14:03 | W.PN.PUL3 ---
Today's Communication / Plan
-
Asp precs
VC, MIP
Atb
Plasma exchange
Assessment
-
Assessment:
Mr Shree Thomas is an 78/M adm 12-05 with dysphagia on DOA in setting of known h/o MG. Follows with Neurology for Ab positive MG, had flare of MG in Aug, received IVIG and CS with improvement, did not require PEG, post d/c started on
vygart/efgartidomod alpha, unfortunately developed skin rash, currently awaiting for approval of rozanolixizumab/rystiggo, continues on chronic mestinon. Started IVIG and IV MP pulse upon adm. Had to received DHT due to poor performance on bedside
speech evaluation 12-06 (known h/o variable degrees of dysphagia on multiple prior VSEs). VC monitored since 12-05 (1.8L, 64% of predicted 2.8L), MIP monitored since 12-06 (-20 cwp). Today VC 1.4L and MIP -32 cwp). Noted VC 2.27L and NIF -30 in Aug
7h
Impression:
MG flare
Dysphagia
OMAR
Vomit episode 12-07
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
MG, on pyridostigmine
Dysphagia s/p cricopharyngeal myotomy, past h/o PEG
CAD, s/p CABGx3
HTN
HLD
PPM
IDDM on insulin pump
Hypothyroidism
TIA 2011
Vertigo
Scoliosis
R TKR
Appendectomy
Hernia repair
Remote h/o pipe smoking
Plan:
Continue O2 protocol
Currently on NC 2L, POx 92-93%
Conversant in full sentences, no drooling
MG flare
On IVIG (D 3/5) and MP (D 3/3)
Held IVIG due to OMAR
Plasma exchange 12-08 (received [facility] HD cath)
VC monitored since 12-05 (1.8L, 64% of predicted 2.8L)
MIP monitored since 12-06 (-20 cwp)
Today VC 1.4L and MIP -32 cwp
Noted VC 2.27L and MIP -30 in [place] 7h
Appears resp marcos stable at time of visit, clear MS, speaking in full sentences, no drooling
Keep asp precs
Continue monitoring VC and MIP
Patient declines maneuvers multiple times today due to nausea
D/w RT, retry to monitor VC, MIP
Atbs per adm svce: ceftriaxone/metronidazole IV since 12-07, per RN suspected aspiration
CXR 12-07: portable, short lung span, elevated R diaphragm (new), L PM, sternotomy wiring. GT
Repeat CXR post HD cath: cath at [facility], no infiltrates or pneumothorax, R diaphragm remains elevated
Keep asp precs
prn DNs
D/w Mr Thomas and Royal [place] RN
Subjective Data
-
Date of Service:
Date of Service: December 09, 2023
Chief Complaint: Pulmonary Follow Up
Objective Data
Data Reviewed
Vital Signs / I&O / Oxygen:
Vital Signs
Temp Pulse Resp BP Pulse Ox
97.3 F 79 19 122/65 96
12/09/23 11:30 12/09/23 12:00 12/09/23 12:00 12/09/23 12:00 12/09/23 12:00
Intake and Output
12/08/23 12/09/23 12/10/23
06:59 06:59 06:59
Intake Total 1690 / 1690 300 / 300
Output Total 1450 / 1450 750 / 750
Balance 240 / 240 -450 / -450
SaO2 96
Nasal Cannula flow liters per 94
minute
Physical Exam
General: Respiratory Distress (n)
HEENT: Normocephalic and Moist Mucous Membranes
Cardiovascular: Regular Rhythm, Murmur (n) and Peripheral Edema (n)
Respiratory: Rhonchi (trace), Non-Labored Respirations and Stridor (n)
GI: Soft, Non Distended and Non Tender
Neurology: Awake, AO x 3 and Other (weak)
Skin: Warm
Labs/Micro/Reports
Lab Data
12/09/23 08:03
12/09/23 08:03
--- NOTE | 2023-12-09 14:08 | CM ---
Reviewed the chart notes and spoke with the patient's son Rl via telephone. The patient resides alone in a two story home with one step to enter. The patient has a rolling walker and cane. The patient is currently with Dobbhoff tube for TFs.
The patient received first plasmapheresis treatment today. The patient's pharmacy of choice is the [facility] [place]. continues to be available to patient/family and is monitoring medical plan for needs at discharge.
Plan: Discharge plans will depend on the patient's progress.
[2023-12-09] MEDS: D5/0.45%NSS with KCL 10 MEQ 1000 IV (15:05)
--- NOTE | 2023-12-09 16:16 | W.PN.NEURO.1 ---
Today's Communication / Plan
-
plex #1 today
Neuro Assessment/Plan
Assessment
Patient is an 78-year-old male with a PMH of CAD, HTN, IDDM, and antibody positive myasthenia gravis who presented to on 12/06/23 with report of dysphagia and not being able take all his pills properly.
Patient had been seen by our Neurology service in August 2023 for presumed flare of myasthenia gravis treated with IVIG and steroids and he did show improvement, was able to be discharged without any PEG tube.
After discharge he was started on Vygart/Efgartidomod Reginald as an immune therapy for control of myasthenia gravis and he had his second dose in the early part of October approximately 10/31 but did have development of rash on his abdomen after this so
has been stopped from that medication. Plan per his regular neurologist Dr Blue was to get a different immune medication for myasthenia gravis (Rozanolixizumab/Rystiggo) and is still pending approval at this time he has not received his first dose
of this.
Patient does say he thinks he had a GI virus around 2 weeks ago that he has recovered from he has not have any further nausea or diarrhea or abdominal pain.
.
Patient does not take any prednisone on a chronic basis but does take his Mestinon regularly.
Impressions:
MG exacerbation manifesting with dysphagia. It is possible that his reported recent GI illness could have triggered this. Patient had adverse reaction to the previous immune medication for myasthenia gravis (Vyvgart given in early October) and has
not been started on a new immune medication yet but is pending approvals for Rystiggio. He developed OMAR 2/2 possibly as s/e of IVIG and has been switched to PLEX; first day was today. He developed some SOB this AM which has since resolved.
Dysarthria resolved today as well.
Plan
-switched from IVIG to PLEX today given OMAR. Today was day #1 of PLEX, given by [place], and his dysarthria has now resolved. Dobhoff still in place for dysphagia.
-finished course of steroids
-NIF, VC testing BID, pulm following; says he was SOB this AM but this has now resolved
-Neurological checks per unit guidelines.
-PT/OT/ST evaluations.
-Aspiration precautions. Has Dobhoff in place now.
-When able to tolerate oral medications, resume pyridostigmine 60mg TID.
-DVT prophylaxis.
-Will follow.
Critical care time 35 mins
Subjective/Objective
Subjective Data
Date of Service: December 09, 2023
much better today s/p PLEX #1
Objective Data
Vital Signs
Temp Pulse Resp BP Pulse Ox
97.3 F 83 23 130/77 96
12/09/23 11:30 12/09/23 14:00 12/09/23 14:00 12/09/23 14:00 12/09/23 14:00
Lab Results
12/09/23 08:03
12/09/23 08:03
Sodium 139 mmol/L (135-145) 12/09/23 08:03
Potassium 4.7 mmol/L (3.5-5.1) 12/09/23 08:03
BUN 57 mg/dl (9-20) H 12/09/23 08:03
Glucose 442 mg/dl (70-99) H 12/09/23 08:03
Glucose Cancelled 12/09/23 08:03
Calcium 8.3 mg/dl (8.4-10.2) L 12/09/23 08:03
Patient Allergies
efgartigimod reginald-fcab [From Vyvgart] Allergy (Verified 12/06/23 10:53)
Rash
Physical Exam
Extended Neurological Exam
Mood & Affect: Mood Unremarkable and Affect Unremarkable
Attention Span & Concentration: Awake, Alert and Interactive
Memory: Unremarkable
Tremor: Hand Tremor Absent and Head Tremor Absent
Speech: Other (dysarthria resolved)
Cranial Nerve II: Left Eye: Pupillary Reactivity Unremarkable and Pupillary Size Unremarkable
Cranial Nerve II: Right Eye: Pupillary Reactivity Unremarkable and Pupillary Size Unremarkable
Cranial Nerves III, IV, : Extraocular Movement: Extraocular Movement Full in all Directions, No Ptosis and Other
Cranial Nerve V: Facial Sensation: Facial Sensation Unremarkable to Cold
Cranial Nerve VII: Facial Symmetry: Normal Facial Symmetry
Cranial Nerve VIII: Hearing: Unremarkable Hearing to Normal Conversational Volume
Cranial Nerves IX, X: Palate Movement: Palate Elevation Symmetric
Cranial Nerve XI: Shoulder Shrug: Unremarkable
Cranial Nerve XII: Tongue Protusion: Midline
Muscle Strength, Overall: Full Throughout
Deep Tendon Reflexes: Unremarkable Throughout
Cold Sensation: Unremarkable
Touch Sensation: Unremarkable
Coordination: Jcrxze-[id number]-fwgint Testing Unremarkable
[2023-12-09 16:45] LABS: B.E. 0.8 mmol/L; HCO3 24.2 mmol/L (21-28); O2 Saturation % 95.1 % (94-98); PCO2 34 mmHg (35-48); PO2 64 mmHg (83-108); pH 7.46 (7.35-7.45)
[2023-12-09 16:46] LABS: O2 Therapy RA
[2023-12-09] MEDS: LOVENOX 40 MG SC (17:19)
[2023-12-09 17:33] LABS: Glucose - Point of Care 367 mg/dl (70-99)
[2023-12-09 20:06] LABS: Glucose - Point of Care 302 mg/dl (70-99)
[2023-12-09] MEDS: XALATAN OPHTHALMIC SOLUTION 1 DROP BOTH EYES (21:27)
[2023-12-10] VITALS (14 sets, daily range): BP systolic 107–156; BP diastolic 57–93; BMI 24.2
[2023-12-10 00:06] LABS: Glucose - Point of Care 357 mg/dl (70-99)
[2023-12-10] MEDS: LOPRESSOR 12.5 MG TUBE ×5 (00:36→23:56)
[2023-12-10] MEDS: NOVOLOG FLEXPEN-MODERATE RESISTANCE 9 UNITS SC ×2 (00:40→05:40)
--- NOTE | 2023-12-10 01:26 | PTCARENOTE ---
Pt has been up OOB a few time and is trying to have a BM but has been having some difficulty. Tube feeding is infusing st 40cc/hr and he has no nausea. Skin is diamante and warm and dry. His urine is strong smelling but he is able to void without
difficulty. Monitor shows AV paced rhythm and BP has been stable. He is dyspneic on exertion and his pulse Ox drops with activity and it recovers quickly after hie rests. (%% sat on room air at rest.
[2023-12-10] MEDS: ZOSYN 50 IV ×4 (02:28→21:27)
[2023-12-10 04:42] LABS: Hematocrit 38.2 % (39.0-52.0); Mean Corpuscular Hgb 30.6 pg (27.0-31.0); Mean Corpuscular Volume 89.9 fL (80.0-94.0); Platelet Count 113 10^3/uL (130-400); Red Blood Cell Count 4.25 10^6/uL (4.70-6.10); Red Cell Dist. Width 13.9 % (11.5-14.5); White Blood Cell Count 12.3 10^3/uL (4.8-10.8)
[2023-12-10 05:09] LABS: ALT (SGPT) 18 U/L (0-50); AST (SGOT) 27 U/L (17-59); Alkaline Phosphatase 39 U/L (38-126); Blood Urea Nitrogen 43 mg/dl (9-20); Calcium 8.6 mg/dl (8.4-10.2); Carbon Dioxide 28 mmol/L (22-30); Chloride 112 mmol/L (98-107); Estimated Creatinine Clearance 59 ml/min; Glucose 340 mg/dl (70-99); Magnesium 2.7 mg/dl (1.6-2.3); Potassium 4.4 mmol/L (3.5-5.1); Sodium 143 mmol/L (135-145); Total Protein 5.7 g/dl (6.3-8.2); eGFR > 60.00
[2023-12-10] MEDS: D5/0.45%NSS with KCL 10 MEQ 1000 IV (05:46)
[2023-12-10] MEDS: SYNTHROID 112 MCG TUBE (05:46)
[2023-12-10 05:48] LABS: Glucose - Point of Care 363 mg/dl (70-99)
--- NOTE | 2023-12-10 06:24 | W.PN.NEURO.1 ---
Today's Communication / Plan
-
-Continue monitoring respiratory status and neurologic exam
-Continue plans for plasmapheresis, had first session yesterday which he tolerated well and appears to clinically improved, depending on his course and improvement plan for 5 sessions maximum, less if he shows significant improvement
-Continue Mestinon 60 mg TID NG tube
-Follow blood glucose
-Off steroids
-Follow renal function
-Eventually will need reassessment of swallowing function
Will follow
Neuro Assessment/Plan
Assessment
Patient is an 78-year-old male with a PMH of CAD, HTN, IDDM, and antibody positive myasthenia gravis who presented to on 12/06/23 with report of dysphagia and not being able take all his pills properly.
Patient had been seen by our Neurology service in August 2023 for presumed flare of myasthenia gravis treated with IVIG and steroids and he did show improvement, was able to be discharged without any PEG tube.
After discharge he was started on Vygart/Efgartidomod Reginald as an immune therapy for control of myasthenia gravis and he had his second dose in the early part of October approximately 10/31 but did have development of rash on his abdomen after this so
has been stopped from that medication. Plan per his regular neurologist Dr Blue was to get a different immune medication for myasthenia gravis (Rozanolixizumab/Rystiggo) and is still pending approval at this time he has not received his first dose
of this.
Patient does say he thinks he had a GI virus around 2 weeks ago that he has recovered from he has not have any further nausea or diarrhea or abdominal pain.
Patient does not take any prednisone on a chronic basis but does take his Mestinon regularly.
Impressions:
MG exacerbation manifesting with dysphagia. It is possible that his reported recent GI illness could have triggered this. Patient had adverse reaction to the previous immune medication for myasthenia gravis (Vyvgart given in early October) and has
not been started on a new immune medication yet but is pending approvals for Rystiggio. He developed OMAR 2/2 possibly as s/e of IVIG and has been switched to PLEX, good improvement after this.
Subjective/Objective
Subjective Data
Date of Service: December 10, 2023
No acute events, had 1 session of PLEX yesterday without complication, patient feeling a lot better in general today
Objective Data
Vital Signs
Temp Pulse Resp BP Pulse Ox
97.7 F 70 23 151/69 96
12/10/23 03:33 12/10/23 06:00 12/10/23 06:00 12/10/23 06:00 12/10/23 06:00
Lab Results
12/10/23 04:05
12/10/23 04:05
Sodium 143 mmol/L (135-145) 12/10/23 04:05
Potassium 4.4 mmol/L (3.5-5.1) 12/10/23 04:05
BUN 43 mg/dl (9-20) H 12/10/23 04:05
Glucose 340 mg/dl (70-99) H 12/10/23 04:05
Calcium 8.6 mg/dl (8.4-10.2) 12/10/23 04:05
Patient Allergies
efgartigimod reginald-fcab [From Vyvgart] Allergy (Verified 12/06/23 10:53)
Rash
Review of Systems
-
History Source: Patient
All other systems: Reviewed and negative
Constitutional: No Symptoms
EENT: No Symptoms Reported
Respiratory: No Symptoms
Cardiac: No Symptoms
Abdomen/GI: No Symptoms
Genitourinary: No Symptoms
Musculoskeletal: No Symptoms
Skin: No Symptoms
Neuro: Speech Problem
Endocrine: No Symptoms
Hematologic / Lymphatic: No Symptoms
Allergy / Immunology: No Symptoms
Physical Exam
-
General: Comfortable
Eyes: No Ptosis
HEENT: Normocephalic
Neck: No Bruits Bilaterally
Respiratory: Clear to Auscultation
Cardiac: Regular Rhythm
GI: Normal Bowel Sounds
Skin: Unremarkable
Extremities: No Clubbing
Psych: Unremarkable
Extended Neurological Exam
Mood & Affect: Mood Unremarkable and Affect Unremarkable
Attention Span & Concentration: Awake, Alert and Interactive
Memory: Unremarkable
Tremor: Hand Tremor Absent
Involuntary Movement: None
Speech: Quality Unremarkable, Quantity Unremarkable and Other (Improved speech, little to no appreciable dysarthria); Negative Expressive Aphasia, Receptive Aphasia or Dysarthric
Cranial Nerve II: Left Eye: Pupillary Reactivity Unremarkable and Pupillary Size Unremarkable
Cranial Nerve II: Right Eye: Pupillary Reactivity Unremarkable and Pupillary Size Unremarkable
Cranial Nerves III, IV, : Extraocular Movement: Extraocular Movement Full in all Directions
Muscle Strength, Overall: Full Throughout and Other (Head and neck flexion shoulder abduction 5/5)
Data Reviewed
-
Labs: Report Reviewed
--- NOTE | 2023-12-10 08:04 | W.PN.HOSP.TC ---
Today's Communication/Plan
-
VSE today, hopefully will be able to give diet
start bowel regimen
plasmapheresis tomorrow 12/10
Assessment / Plan
Assessment / Plan
pt is an 78 year old male
acute hypoxemic resp failure--think due to aspiration--on 4L O2--apprec resp therapy--wean O2 as able--CXR with retrocardiac atelectasis vs PNA (more likely as aspirated 12/07)--cont PRN nebs--rocephin/flagyl started (flagyl may contribute to
n/v)--will change to zosyn (no further n/v and tolerating tube feeds)
OMAR--creat went from 0.9 to 2.9--possibly due to elevated sugars, dehydration--less likely meds--holding lasix/lisinopril--improved with plasmapheresis
Diabetes mellitus type 2--on insulin pump which will hold because of his dysphagia and n.p.o. status--sugars ran very high with addition of steroids--asked DM OVEN LABORER for assistance but needed insulin drip for better sugar control --off insulin drip as
of 12/07 and started SQ lantus and mod SSI, will need adjustments
Acute myasthenia gravis flare with the dysphagia and occasional diplopia--apprec neuro--seen by speech--not safe for PO intake, only ice chips--asked GI to place feeding tube (Dojudithoff)--pulled out last night, replaced this AM-- plasmapheresis
(started 12/08, next treatment 12/10) as per neuro--VSE today
CAD without any chest pain--continue with his home medication statins--On dual anti platelet agents as well as statins--changed meds to tube
Essential Hypertension--continue with his home medications as able
Hyperlipidemia--continue with his medication
constipation--start bowel regimen
Full code
updated son 12/08/23
Anticipated Discharge: > 48 hours
Subjective/Interval History
-
Date of Service: December 10, 2023
pt doing well
Objective Data
-
Labs:
Laboratory Results
12/10/23
04:05
WBC 12.3 H
Hgb 13.0
Hct 38.2 L
Plt Count 113 L D
Sodium 143
Potassium 4.4
Chloride 112 H
Carbon Dioxide 28
BUN 43 H
Creatinine 1.1
Glucose 340 H
Calcium 8.6
Total Bilirubin 1.0
AST 27
ALT 18
Alkaline Phosphatase 39
Vital Signs:
max temp for 24 hours
12/09/23
23:11
Temp 98.2 F
Vital Signs
Temp Pulse Resp BP Pulse Ox
97.7 F 70 23 151/69 96
12/10/23 03:33 12/10/23 06:00 12/10/23 06:00 12/10/23 06:00 12/10/23 06:00
I&O
12/09/23 12/10/23 12/11/23
06:59 06:59 06:59
Intake Total 1690 / 1690 2750 / 2750
Output Total 1450 / 1450 1999 / 1999
Balance 240 / 240 750 / 750
Review of Systems
-
All other systems: Reviewed and negative
Physical Exam
-
General: Well Developed, Well Nourished and No Apparent Distress
HEENT: Normocephalic and Atraumatic
Respiratory: Clear to Auscultation; Negative Wheezes or Rhonchi
Cardiac: Regular Rhythm and S1/S2
GI: Soft, Nontender, Nondistended and Normal Bowel Sounds
Musculoskeletal: No Clubbing, No Cyanosis and No Edema
Neuro: Awake and Alert
--- NOTE | 2023-12-10 09:18 | PN.DE.MGMTRT ---
Insulin Management
- -
12/10/2023: Diabetes Management F/U:
78 year old male known to me from previous hosp admissions, presented to hospital with likely myasthenia gravis flare manifesting with dysphagia.
Pt states that he has had difficulty with both solid and liquid food as well as his oral medications.
PMH includes: HTN, HLD, CAD, CHF, hypothyroidism, antibody positive myasthenia gravis, IDDM, A1C 7.3%, was 7.1% on 06/06/23.
Was using [employer]pace 780G pump with NovoLog insulin, Quick Sets and CGM prior to admission, reports that pump was discontinued this morning and was taken home with family. He follows with Dr. Subramanian and sees Levar Alvarez.
He was noted for elevated glucose levels on initiation of IV steroids and was started on insulin drip-->transitioned off over the weekend to basal insulin with corrective and no standing short acting dose.
Pt seen in IMU this morning, sitting up in chair. He is Awake, A/O x3, states he is feeling better today. Reports that his insulin pump was not brought in yesterday and that he failed his swallow test this morning.
He remains NPO with tube feeds, IV Steroids and IVIG with persistent steroid induced Hyperglycemia.
His glucose levels have been >300, which is expected due to the IV Steroids and tube feeds.
Will increase Lantus to 25 units BID. Start NovoLog 10 units Q6 hrs and cont moderate corrective insulin.
Instructed pt to have family bring in his insulin pump tomorrow with plans to resume it when glucose levels have improved.
Will closely follow and make insulin adjustments as needed
Diabetes History
- -
Type of Diabetes: 1
Pre-Admission Diabetes Regimen
12/10/23
04:05
Creatinine 1.1
Lab Results
Hemoglobin A1c 7.3 % (4.0-5.6) H 12/07/23 04:54
Insulin Pump Settings
IP Diabetes Regimen
12/09/23 12/09/23 12/09/23
12:50 17:17 19:49
Glucose
POC Glucose 369 H 367 H 302 H
12/09/23 12/10/23 12/10/23
23:54 04:05 05:35
Glucose 340 H
POC Glucose 357 H 363 H
Patient Education
--- NOTE | 2023-12-10 09:25 | PTOTSP ---
Speech Language Pathology
VIDEOFLUOROSCOPIC SWALLOWING EXAMINATION (VSE) completed. Overall, pt with severe pharyngeal dysphagia with significant pharyngeal residue and minimal airway protection with aspiration of thin liquids via cup and penetration to the level of the
vocal folds otherwise.
Recommend:
(1) NPO
(2) Oral care 4x/day with suctioning as needed
(3) Non-oral meds
(4) Allow ice chips post oral care per Aspiration Risk Hydration Protocol (ARHP)
(5) Will plan for repeat VSE once improvement noted at bedside as pt is currently a responsive aspirator
(6) SPECIMEN PREPARATION ASSISTANT to continue to follow
[2023-12-10] MEDS: COLACE LIQUID 100 MG TUBE (10:03)
[2023-12-10] MEDS: MESTINON 60 MG TUBE ×3 (10:03→21:27)
[2023-12-10] MEDS: PLAVIX 75 MG TUBE (10:03)
[2023-12-10] MEDS: LIPITOR 80 MG TUBE (10:03)
[2023-12-10] MEDS: LOW STRENGTH ASPIRIN 81 MG TUBE (10:03)
[2023-12-10] MEDS: NORVASC 5 MG TUBE (10:04)
[2023-12-10] MEDS: ZESTRIL 40 MG TUBE (10:04)
[2023-12-10] MEDS: MIRALAX 17 GRAMS TUBE (10:06)
--- NOTE | 2023-12-10 10:06 | W.PN.PUL3 ---
Today's Communication / Plan
-
Continue antibiotics, complete 5 to 7 days.
Wean down oxygen
Incentive spirometry if able
Continue to monitor for respiratory status
Plasmapheresis per neurology
Assessment
-
Assessment:
Mr Shree Thomas is an 78/M adm 12-05 with dysphagia on DOA in setting of known h/o MG. Follows with Neurology for Ab positive MG, had flare of MG in Aug, received IVIG and CS with improvement, did not require PEG, post d/c started on
vygart/efgartidomod alpha, unfortunately developed skin rash, currently awaiting for approval of rozanolixizumab/rystiggo, continues on chronic mestinon. Started IVIG and IV MP pulse upon adm. Had to received DHT due to poor performance on bedside
speech evaluation 12-06 (known h/o variable degrees of dysphagia on multiple prior VSEs). VC monitored since 12-05 (1.8L, 64% of predicted 2.8L), MIP monitored since 12-06 (-20 cwp). Today VC 1.4L and MIP -32 cwp). Noted VC 2.27L and NIF -30 in Aug
7h
Impression:
MG flare
Dysphagia
OMAR
Vomit episode 12-07
Conditions [employer] MAN:
MG, on pyridostigmine
Dysphagia s/p cricopharyngeal myotomy, past h/o PEG
CAD, s/p CABGx3
HTN
HLD
PPM
IDDM on insulin pump
Hypothyroidism
TIA 2011
Vertigo
Scoliosis
R TKR
Appendectomy
Hernia repair
Remote h/o pipe smoking
Plan:
Continue O2 protocol
Currently on NC 2L, POx 92-93%
Conversant in full sentences, no drooling
MG flare
Per neurology
Steroids on hold
Plasmapheresis
-
VC monitored since 12-05 (1.8L, 64% of predicted 2.8L)
MIP monitored since 12-06 (-20 cwp)
12/08 (-30 CMH20)
VC 12/09/2023 (2.8L)
Appears resp marcos stable at time of visit, clear MS, speaking in full sentences, no drooling
Keep asp precs
Continue monitoring VC and MIP daily if possible.
-
Hypoxemic respiratory failure: Possibly aspiration.
Monitor leukocytosis and fevers.
Currently on 2L NC pulse ox is 99%. Wean off as able.
Maintain pulse ox above 90%.
Chest x-ray noted.
Continue Zosyn, will complete 5 to 7 days of antibiotic therapy.
Keep asp precs
Dobbhoff tube in place
For swallowing evaluation.
prn DNs
D/w Mr Thomas and Hewlett RN
Subjective Data
-
Date of Service:
Date of Service: December 10, 2023
Chief Complaint: Pulmonary Follow Up
Objective Data
Data Reviewed
Vital Signs / I&O / Oxygen:
Vital Signs
Temp Pulse Resp BP Pulse Ox
98.6 F 70 23 151/69 96
12/10/23 07:05 12/10/23 06:00 12/10/23 06:00 12/10/23 06:00 12/10/23 06:00
Intake and Output
12/09/23 12/10/23 12/11/23
06:59 06:59 06:59
Intake Total 1690 / 1690 2750 / 2750
Output Total 1450 / 1450 1999 / 1999 300 / 300
Balance 240 / 240 750 / 750 -300 / -300
SaO2 96
Nasal Cannula flow liters per 94
minute
Physical Exam
General: Respiratory Distress (n)
HEENT: Normocephalic and Moist Mucous Membranes
Cardiovascular: Regular Rhythm, Murmur (n) and Peripheral Edema (n)
Respiratory: Rhonchi (trace), Non-Labored Respirations and Stridor (n)
GI: Soft, Non Distended and Non Tender
Neurology: Awake, AO x 3 and Other (weak)
Skin: Warm
Labs/Micro/Reports
Lab Data
12/10/23 04:05
12/10/23 04:05
Laboratory Results
12/09/23
16:38
pH 7.46 H
pCO2 34 L
pO2 64 L
HCO3 24.2
O2 Delivery Level Ra
[2023-12-10 10:08] LABS: Free T4 0.96 ng/dl (0.78-2.19)
[2023-12-10] MEDS: LANTUS 0.25 UNITS SC ×2 (10:40→21:26)
[2023-12-10] MEDS: LANTUS SC (11:04)
[2023-12-10 12:33] LABS: Glucose - Point of Care 319 mg/dl (70-99)
[2023-12-10] MEDS: NOVOLOG FLEXPEN-MODERATE RESISTANCE 7 UNITS SC (12:45)
[2023-12-10] MEDS: NOVOLOG FLEXPEN 10 UNITS SC ×2 (12:45→18:16)
--- NOTE | 2023-12-10 17:41 | W.PN.UPDATE ---
Update Note
Progress Note Update
Patient with new onset atrial flutter, rate controlled.
Check echocardiogram, TSH/free T4, consult cardiology.
--- NOTE | 2023-12-10 17:42 | PTCARENOTE ---
As patient was transferring from the commode to his bed he complained of brief dizziness. At that time RN observed a change in EKG, multiple pacer spikes and aflutter appearing rhythm. EKG completed and Aflutter confirmed. Notified cross cover
Do. Patient is now in bed denying chest pain, dizziness or shortness of breath when asked. Vital signs 135/64, 80-, pulse ox 96% on 2 liters. Cardiology consult pending.
[2023-12-10] MEDS: LOVENOX 40 MG SC (18:11)
[2023-12-10 18:16] LABS: Glucose - Point of Care 223 mg/dl (70-99)
[2023-12-10] MEDS: NOVOLOG FLEXPEN-MODERATE RESISTANCE 3 UNITS SC (18:16)
[2023-12-10] MEDS: XALATAN OPHTHALMIC SOLUTION 1 DROP BOTH EYES (21:27)
[2023-12-10 21:34] LABS: Glucose - Point of Care 173 mg/dl (70-99)
[2023-12-10 22:54] LABS: Urine Protein 82 mg/dl (0-12)
[2023-12-10 23:23] LABS: Microalbumin, Random Urine 34.7 mg/dl (0.6-1.7)
[2023-12-10] MEDS: TYLENOL 650 MG TUBE (23:56)
[2023-12-11] VITALS (19 sets, daily range): BP systolic 97–146; BP diastolic 53–75; PULSE 70–71; O2SAT 100; BMI 24.4
[2023-12-11 00:10] LABS: Glucose - Point of Care 155 mg/dl (70-99)
[2023-12-11] MEDS: NOVOLOG FLEXPEN-MODERATE RESISTANCE 1 UNITS SC (00:32)
[2023-12-11] MEDS: NOVOLOG FLEXPEN 10 UNITS SC ×4 (00:33→23:52)
--- NOTE | 2023-12-11 00:44 | PTCARENOTE ---
Pt has been out of bed multiple times for BM's and is passing liquid stools, he had a bowel regimen on day shift and was able to have a BM then, but has not been able to stop throughout the shift. He gets short of breath when active even with 2L NC
on. O2 sat is 97-100%. He has been coughing a lot this shift and he has been chewing on ice chips. Asked pt to stop using the ice chips and to use the bed reyes as the OOB was making him very tired and weak. Remains in atrial flutter with V paced
rhythm. He is orthopneic and respirations are shallow. He does report that his breathing is a little more labored but does not feel that he can not clear his sputum. Suction is at the bedside. BARKEEP notified of increased coughing and pt's
complaints of muscular pain in abd from coughing. Gave him Tylenol via his Dobhoff tube. Will continue to monitor pt. Urine specimen was sent for labs as ordered.
--- NOTE | 2023-12-11 01:59 | PTCARENOTE ---
Pt noted to have bright red hands, no swelling but very red, no itching. Turned O2 down to 1 liter NC and TT SHRIMP PEELING MACHINE TENDER about hands. Will continue to monitor.
[2023-12-11] MEDS: ZOSYN 50 IV ×4 (02:05→20:02)
[2023-12-11] MEDS: DUONEB 3 ML INH (04:42)
[2023-12-11] MEDS: SYNTHROID 112 MCG TUBE (05:30)
[2023-12-11] MEDS: LOPRESSOR 12.5 MG TUBE ×4 (05:30→23:53)
[2023-12-11 05:39] LABS: Hematocrit 42.1 % (39.0-52.0); Hemoglobin 13.8 g/dL (13.0-18.0); Mean Corp Hgb Conc. 32.8 g/dL (33.0-37.0); Mean Corpuscular Hgb 30.5 pg (27.0-31.0); Mean Corpuscular Volume 93.1 fL (80.0-94.0); Mean Platelet Volume 12.9 fL (7.4-10.4); Platelet Count 97 10^3/uL (130-400); Red Blood Cell Count 4.52 10^6/uL (4.70-6.10); White Blood Cell Count 10.1 10^3/uL (4.8-10.8)
[2023-12-11 06:06] LABS: Blood Urea Nitrogen 34 mg/dl (9-20); Calcium 8.5 mg/dl (8.4-10.2); Carbon Dioxide 34 mmol/L (22-30); Chloride 114 mmol/L (98-107); Estimated Creatinine Clearance 72 ml/min; Glucose 110 mg/dl (70-99); Potassium 3.9 mmol/L (3.5-5.1); Sodium 147 mmol/L (135-145); eGFR > 60.00
[2023-12-11 06:31] LABS: Glucose - Point of Care 101 mg/dl (70-99)
[2023-12-11] MEDS: NOVOLOG FLEXPEN-MODERATE RESISTANCE SC ×3 (06:31→18:21)
[2023-12-11] MEDS: NOVOLOG FLEXPEN SC (06:31)
--- NOTE | 2023-12-11 06:33 | PTCARENOTE ---
No further ice chips and pt is coughing much less. Complains that his breathing is heavy. He had a breathing treatment earlier which he said made him feel better. Increased 02 up to 2L NC for comfort. His resp rate is stable 16-22 POx is 99% HR
is 70 atrial flutter with V pacing.controlled at 70 BPM. Hands are less red this morning. Pt
[2023-12-11 06:34] LABS: TSH Reflex To Free T4 4.79 uIU/ml (0.47-4.68)
--- NOTE | 2023-12-11 07:18 | W.PN.NEURO.1 ---
Today's Communication / Plan
-
-Continue Mestinon via NG tube
-Plan for Plasmapharesis session 2/5 total today
-Follow glucose
-Aspiration precautions
-VSE swallowing evaluation and speech therapy findings reviewed
Will follow
Neuro Assessment/Plan
Assessment
Patient is an 78-year-old male with a PMH of CAD, HTN, IDDM, and antibody positive myasthenia gravis who presented to on 12/06/23 with report of dysphagia and not being able take all his pills properly.
Patient had been seen by our Neurology service in August 2023 for presumed flare of myasthenia gravis treated with IVIG and steroids and he did show improvement, was able to be discharged without any PEG tube.
After discharge he was started on Vygart/Efgartidomod Reginald as an immune therapy for control of myasthenia gravis and he had his second dose in the early part of October approximately 10/31 but did have development of rash on his abdomen after this so
has been stopped from that medication. Plan per his regular neurologist Dr Blue was to get a different immune medication for myasthenia gravis (Rozanolixizumab/Rystiggo) and is still pending approval at this time he has not received his first dose
of this.
Impressions:
MG exacerbation manifesting with dysphagia. It is possible that his reported recent GI illness could have triggered this. Patient had adverse reaction to the previous immune medication for myasthenia gravis (Vyvgart given in early October) and has
not been started on a new immune medication yet but is pending approvals for Rystiggio. He developed OMAR 2/2 possibly as s/e of IVIG and has been switched to PLEX, good improvement after this.
Subjective/Objective
Subjective Data
Date of Service: December 11, 2023
No acute events, bothered by dry mouth, recommended to stay NPO after evaluation on video swallow yesterday
Objective Data
Vital Signs
Temp Pulse Resp BP Pulse Ox
97.7 F 70 12 114/64 99
12/11/23 03:07 12/11/23 06:00 12/11/23 06:00 12/11/23 06:00 12/11/23 06:00
Lab Results
12/11/23 05:15
12/11/23 05:15
Sodium 147 mmol/L (135-145) H 12/11/23 05:15
Potassium 3.9 mmol/L (3.5-5.1) 12/11/23 05:15
BUN 34 mg/dl (9-20) H 12/11/23 05:15
Glucose 110 mg/dl (70-99) H 12/11/23 05:15
Calcium 8.5 mg/dl (8.4-10.2) 12/11/23 05:15
Patient Allergies
efgartigimod reginald-fcab [From VBitRockgart] Allergy (Verified 12/06/23 10:53)
Rash
Review of Systems
-
History Source: Patient
All other systems: Reviewed and negative
Constitutional: No Symptoms
EENT: No Symptoms Reported
Respiratory: No Symptoms
Cardiac: No Symptoms
Abdomen/GI: No Symptoms
Genitourinary: No Symptoms
Musculoskeletal: No Symptoms
Skin: No Symptoms
Neuro: See existing Neuro Note
Endocrine: No Symptoms
Hematologic / Lymphatic: No Symptoms
Allergy / Immunology: No Symptoms
Physical Exam
-
General: No Apparent Distress
HEENT: Normocephalic; Negative Moist Mucous Membranes
Neck: Other (Right pharesis catheter in place no abnormalities)
Respiratory: Clear to Auscultation; Negative Wheezes
Cardiac: No Murmur
GI: Soft and Non-tender
Skin: Warm and Dry; Negative Rash
Extremities: No Edema
Psych: Unremarkable and Intact Judgement/Insight
Extended Neurological Exam
Mood & Affect: Mood Unremarkable and Affect Unremarkable
Attention Span & Concentration: Awake, Alert and Interactive
Memory: Unremarkable
Tremor: Hand Tremor Absent
Involuntary Movement: None
Speech: Dysarthric; Negative Expressive Aphasia or Receptive Aphasia
Cranial Nerve II: Left Eye: Pupillary Reactivity Unremarkable and Pupillary Size Unremarkable
Cranial Nerve II: Right Eye: Pupillary Reactivity Unremarkable and Pupillary Size Unremarkable
Cranial Nerves III, IV, : Extraocular Movement: Extraocular Movement Full in all Directions
Cranial Nerve V: Facial Sensation: Intact to Light Touch
Cranial Nerve VII: Facial Symmetry: Normal Facial Symmetry
Muscle Strength, Overall: Other (Neck flexion/extension shoulder abduction 5/5 bilaterally)
Pronator Drift: No Drift in Upper Extremities
Babinski Sign: Absent Bilaterally
Data Reviewed
-
Labs: Report Reviewed
[2023-12-11] MEDS: LANTUS 0.25 UNITS SC (08:19)
[2023-12-11] MEDS: LIPITOR 80 MG TUBE (08:20)
[2023-12-11] MEDS: LOW STRENGTH ASPIRIN 81 MG TUBE (08:20)
[2023-12-11] MEDS: MESTINON 60 MG TUBE ×3 (08:21→21:35)
[2023-12-11] MEDS: NORVASC 5 MG TUBE (08:21)
[2023-12-11] MEDS: ZESTRIL 40 MG TUBE (08:21)
[2023-12-11] MEDS: PLAVIX 75 MG TUBE (08:21)
[2023-12-11 08:28] LABS: Glucose - Point of Care 124 mg/dl (70-99)
--- NOTE | 2023-12-11 08:40 | W.PN.HOSP.TC ---
Today's Communication/Plan
-
plasmapheresis again today
Assessment / Plan
Assessment / Plan
pt is an 78 year old male
acute hypoxemic resp failure--think due to aspiration--on 2L O2--apprec resp therapy--wean O2 as able--CXR with retrocardiac atelectasis vs PNA (more likely as aspirated 12/07)--cont PRN nebs--was on rocephin/flagyl (flagyl may contribute to
n/v)--changed to zosyn (no further n/v and tolerating tube feeds)--still has not passed swallow eval
OMAR--creat went from 0.9 to 2.9--possibly due to elevated sugars, dehydration, IVIG--holding lasix/lisinopril--improved with plasmapheresis
Diabetes mellitus type 2--on insulin pump which will hold because of his dysphagia and n.p.o. 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
of 12/07 and started SQ lantus and mod SSI, will need adjustments
Acute myasthenia gravis flare with the dysphagia and occasional diplopia--apprec neuro--seen by speech--not safe for PO intake, only ice chips--asked GI to place feeding tube (Dobhoff)--pulled out last night, replaced this AM-- plasmapheresis
(started 12/08, next treatment 12/10) as per neuro--VSE--still has not passed swallow eval
CAD without any chest pain--continue with his home medication statins--On dual anti platelet agents as well as statins--changed meds to tube
Essential Hypertension--continue with his home medications as able
Hyperlipidemia--continue with his medication
constipation--start bowel regimen
Full code
Anticipated Discharge: > 48 hours
Subjective/Interval History
-
Date of Service: December 11, 2023
pt coughing and spitting up--not particularly nauseous
Objective Data
-
Labs:
Laboratory Results
12/11/23
05:15
WBC 10.1
Hgb 13.8
Hct 42.1
Plt Count 97 L
Sodium 147 H
Potassium 3.9
Chloride 114 H
Carbon Dioxide 34 H
BUN 34 H
Creatinine 0.9
Glucose 110 H
Calcium 8.5
Vital Signs:
max temp for 24 hours
12/10/23
23:05
Temp 98.2 F
Vital Signs
Temp Pulse Resp BP Pulse Ox
98.0 F 70 22 133/58 99
12/11/23 07:36 12/11/23 08:00 12/11/23 08:00 12/11/23 08:00 12/11/23 08:00
I&O
12/10/23 12/11/23 12/12/23
06:59 06:59 06:59
Intake Total 2750 / 2750 2350 / 2350
Output Total 1999 / 1999 1050 / 1050
Balance 750 / 750 1300 / 1300
Review of Systems
-
All other systems: Reviewed and negative
Respiratory: Reports Cough
Physical Exam
-
General: Well Developed, Well Nourished and No Apparent Distress
HEENT: Normocephalic, Atraumatic and Other (feeding tube in nose)
Respiratory: Clear to Auscultation; Negative Wheezes, Rales or Rhonchi
Cardiac: Regular Rhythm and S1/S2; Negative Murmur
GI: Soft, Nontender, Nondistended and Normal Bowel Sounds
Musculoskeletal: No Clubbing, No Cyanosis and No Edema
Neuro: Awake
Psych: Calm
--- NOTE | 2023-12-11 08:58 | CON.CAR ---
Addendum entered and electronically signed by Nico Ramos MD 12/11/23 10:04:
78-year-old man admitted with acute hypoxemic respiratory failure likely due to aspiration, with OMAR in the setting of acute myasthenia gravis on plasmapheresis. Now with atrial flutter new onset, only A-fib was after CABG. No awareness of
symptoms.
PMH: Diabetes, CAD, hypertension, and hyperlipidemia, myasthenia,hypothyroidism, remote postop A-fib
PSH CABG December 2016, SEAY to LAD, saphenous vein sequentially to D1 and OM 2, pacer
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
[id number]/[id number], pulse 70
Chronically ill-appearing, Dobbhoff in place, coughing
Head and neck exam unremarkable
Lungs relatively clear but rhonchi
Cardiac regular rate and rhythm, no obvious murmurs
Abdomen benign
Extremities without clubbing cyanosis or edema
Neuro grossly nonfocal, bulbar weakness
Hemoglobin 13.8, BUN and creatinine 34 and 0.9, TSH is 4.79, free T4 is 1
Atrial flutter with 4:1 conduction, right bundle branch block
Chest x-ray low lung volumes, vascular crowding, pacemaker, elevated left hemidiaphragm, possible pleural effusion
Troponin 0.016
Lexiscan sestamibi study 2019 small mildly reversible apical anterior, apical septal, apical inferior, apical lateral defect STA versus infarction with ischemia, EF 69%
Echo 2019 EF 55-60%, pacing wire, normal RV, normal RA, MAC, mild MR, moderate TR pulmonary artery systolic pressure 32 mmHg
Assessment:
Presentation with dysphagia, dobhoff placed
Acute hypoxemic respiratory failure
Cough
L PNA, concern for aspiration
OMAR, improved
Atrial flutter, new diagnosis, noted onset 12/09 in hospital
Recent diagnosis vertigo as OP, improved
CAD status post CABG in 2016
Brief postop A-fib
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
Chronic heart failure preserved EF
Sick sinus syndrome status post Medtronic pacemaker 2010
Hypertension
Hyperlipidemia
Type 1 diabetes, insulin-dependent
Hypothyroidism
Myasthenia gravis
History of TIA/CVA
Chronic venous insufficiency
Possible prior [facility] stricture [facility]
ECHO 2019: EF 55 to 60%, MAC, mild MR, moderate TR, PAP 32 mmHg
EKG on admission: AV paced
ECG December 09: Atrial flutter with right bundle branch block and 41 conduction predominantly
Plan:
He presents with new onset atrial flutter that is asymptomatic given that he has intrinsic AV charisse dysfunction and a controlled ventricular response.
We will interrogate pacer to see if he has had episodes of atrial flutter previously.
Begin Eliquis, check echocardiogram, check proBNP
Other than Eliquis, no new medications required at present. Indication for aspirin and Plavix is not acute, so he can be managed with Eliquis alone and aspirin and Plavix can be stopped.
If atrial flutter is truly new, cardioversion could be performed during this hospital stay. Otherwise, elective cardioversion can be arranged in 3 to 4 weeks.
No overt evidence of heart failure, but chest x-ray is suggestive and he has had mild edema, check proBNP. Furosemide had recently been added as needed.
Original Note:
Consultation
Consultation Request
Date/Time Consultation Performed: 12/11/23
Requesting Provider: Dr. Dougherty
Performing Provider: Jasmyn Orr PA-C for Dr. LEA Ramos
Reason for Consultation: aflutter
Medical History
-
Chief Complaint: dysphagia
History of Present Illness:
Patient is an 78 yo M with PMH of SSS s/p Medtronic PPM 2010, CAD s/p CABG in 2017, brief post op afib, prior ischemic CM with recovery in EF, chronic HFpEF, HTN, HLD, IDDM type 1, Myasthenia gravis, hypothyroidism, history of TIA/CVA who presented
with dysphagia. It is listed in our prior notes that he had been [facility] with possible esophageal stricture however timeline unclear. He presently has a Dobbhoff tube in place. He is being treated for myasthenia gravis flare, to get
plasmapheresis today. He is also being treated for pneumonia with antibiotics. Cardiology consulted for new rate controlled atrial flutter noted on telemetry starting yesterday. Patient states he was transitioning from bed to chair and felt dizzy
for a brief time, which subsequently subsided, correlating with onset of atrial flutter. He is presently on aspirin and Plavix as an outpatient for history of TIA/CVA remotely, as well as history of bypass in 2017. Of note patient was recently
seen by his primary care physician on 11/19/2023 for vertigo. He states he had developed some lightheadedness and shortness of breath particularly noted when bending over to pick something up. He states his primary also started him on as needed
Lasix recently he thinks over the last couple of weeks due to lower extremity edema. He has a history of chronic venous insufficiency. Also of note, he recently developed a rash on his stomach starting in October 2023 and his outpatient MG
medication, Rystiggo (subcutaneous) has been on hold as possible culprit for this.
PMH:
CAD status post CABG in 2016
Brief postop A-fib
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
Chronic heart failure preserved EF
Sick sinus syndrome status post Medtronic pacemaker 2010
Hypertension
Hyperlipidemia
Type 1 diabetes, insulin-dependent
Hypothyroidism
Myasthenia gravis
History of TIA/CVA
Chronic venous insufficiency
Possible prior esophageal stricture [facility]
Past Medical History
Past Medical History: Other (in HPI)
Social History
Tobacco: Former Smoker
Alcohol: None
Living: Alone
Employment: Retired
Allergies / Home Medications
Allergy/AdvReac Type Severity Reaction Status Date / Time
efgartigimod mary-fcab Allergy Rash Verified 12/06/23 10:53
[From Vyvgart]
�Medication �Instructions �Recorded �Confirmed �Type
atorvastatin 80 mg tablet 80 mg PO DAILY High cholesterol 04/28/15 12/06/23 History
levothyroxine 112 mcg tablet 112 mcg PO DAILY Thyroid 04/28/15 12/06/23 History
amlodipine 5 mg tablet 5 mg PO DAILY Blood pressure 01/09/22 12/06/23 History
clopidogrel 75 mg tablet 75 mg PO DAILY Blood clot 09/16/22 12/06/23 History
prevention/tx
lisinopril 40 mg tablet 40 mg PO DAILY Blood pressure 09/16/22 12/06/23 History
clobetasol 0.05 % topical ointment 1 applic topical DAILYPRN PRN 08/06/23 12/06/23 History
apply to B/L lower legs
furosemide 20 mg tablet (Lasix) 20 mg PO DAILYPRN PRN swelling 08/06/23 12/06/23 History
aspirin 81 mg tablet,delayed 81 mg PO DAILY Blood Clot 08/22/23 12/06/23 History
release Prevention/Tx
insulin aspart U-100 100 unit/mL 0 unit SC .VIA PUMP Diabetes 08/22/23 12/06/23 History
subcutaneous solution (Novolog
U-100 Insulin aspart)
latanoprost 0.005 % eye drops 1 drp BOTH EYES HS Eye Condition 08/22/23 12/06/23 History
metoprolol succinate 50 mg 50 mg PO DAILY Blood Pressure 12/06/23 12/06/23 History
tablet,extended release 24 hr
pyridostigmine bromide 60 mg tablet 60 mg PO TID myasthenia gravis 12/06/23 12/06/23 History
Review of Systems
-
History Source: Patient
All other systems: Negative unless noted
Physical Exam
Vital Signs
Temp Pulse Resp BP Pulse Ox
98.0 F 70 22 133/58 99
12/11/23 07:36 12/11/23 08:00 12/11/23 08:00 12/11/23 08:00 12/11/23 08:00
Lab Results
04/23/24 05:15
12/11/23 05:15
Troponin I 0.016 ng/ml 12/08/23 23:56
Physical Exam
General: Other (coughing)
HEENT: Other (dobhoff in place)
Respiratory: Other (decreased BS on L)
Cardiac: S1/S2 and Irregular Rhythm
GI: Soft, Non Tender, Non Distended and Normal Bowel Sounds
Musculoskeletal: No Clubbing, No Cyanosis and Edema (1+ of B/L LE)
Skin: Warm and Dry
Neuro: AO x 3
Impression / Plan
-
Primary Boat Pilot: Dr. Murali Wagner
Assessment:
Presentation with dysphagia, dobhoff placed
Acute hypoxemic respiratory failure
Cough
L PNA, concern for aspiration
OMAR, improved
Atrial flutter, new diagnosis, noted onset 12/09 in hospital
Recent diagnosis vertigo as OP, improved
CAD status post CABG in 2017
Brief postop A-fib
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
Chronic heart failure preserved EF
Sick sinus syndrome status post Medtronic pacemaker 2010
Hypertension
Hyperlipidemia
Type 1 diabetes, insulin-dependent
Hypothyroidism
Myasthenia gravis
History of TIA/CVA
Chronic venous insufficiency
Possible prior [facility] stricture [facility]
ECHO 2019: EF 55 to 60%, MAC, mild MR, moderate TR, PAP 32 mmHg
Plan:
-Patient presented to [facility] [place] with dysphagia. He remains with Dobbhoff in place as still has not passed swallow eval. He had some ice chips last night and started coughing, and remains with cough this morning. Speech therapy following
-he is for plasmapheresis today. of note, he did not receive last Rystiggo infusion due to rash
-Also noted to have left-sided pneumonia on review of imaging. There is concern for aspiration given above. Continue treatment per primary service
-Cardiology consulted as patient was noted to go into atrial flutter on 12/09 by review of telemetry. He also reports recent diagnosis of vertigo as an outpatient. Will have [employer] interrogate patient's device to assess overall burden, and
determine truly new onset a flutter.
-Remains rate controlled on review of tele at present. Continue outpatient lopressor through tube (was on toprol 50mg daily as OP)
-[id number] score of 8 for age, h/o TIA/CVA, HTN, DM2, CHF, vascular disease. Was on aspirin and Plavix as an outpatient given history of TIA/CVA, remote as well as history of CABG in 2017. Will likely transition to [facility] alone. Will have case
management assess cost
-Check proBNP in the setting of new atrial flutter, and left sided effusion noted on imaging
-Check echo, last from 2018 reviewed with results as above
-TSH 4.79 with compensated free T4 on levothyroxine as OP
-d/w nursing. d/w hospitalist
Data Reviewed
-
EKG: Tracing Personally Visualized and interpreted
Radiology: Image Personally Visualized and interpreted and Report Reviewed by me
Medical Tests (Nuc Med, Echo etc): Report Reviewed by me
Labs: Labs Reviewed by me
Old Records: Reviewed
--- NOTE | 2023-12-11 09:11 | PN.DE.MGMTRT ---
Insulin Management
- -
12/11/2023: Diabetes Management Follow up:
Patient admitted myasthenia gravis flare manifesting with dysphagia.
Pt states that he has had difficulty with both solid and liquid food as well as his oral medications.
PMH includes: HTN, HLD, CAD, CHF, hypothyroidism, antibody positive myasthenia gravis, IDDM, A1C 7.3%, was 7.1% on 06/06/23.
Was using Mindframe 780G pump with NovoLog insulin, Quick Sets and CGM prior to admission, pump is at the bedside with supplies. He follows with Dr. Subramanian and sees Levar Alvarez.
He was noted for elevated glucose levels on initiation of IV steroids and was started on insulin drip-->transitioned off over the weekend to basal insulin with corrective and no standing short acting dose.
Patient is awake and alert, patient reports feeling weak and exhausted. NG tube in place but clogged, tube feeds on HOLD.
He remains NPO. Glucose this AM 101, patient refused standing dose of novolog 10 units.
Will continue Lantus to 25 units in AM, reduce HS lantus to 20 units and continue NovoLog to 10 units Q6 hrs and cont moderate corrective insulin.
Discussed with patient and nurse best to leave pump off so he does not have to worry about bolus, set changes etc. He is in agreement
Will closely follow
Diabetes History
- -
Type of Diabetes: 2 requiring insulin
Pre-Admission Diabetes Regimen
12/11/23
05:15
Creatinine 0.9
Lab Results
Hemoglobin A1c 7.3 % (4.0-5.6) H 12/07/23 04:54
Insulin Pump Settings
IP Diabetes Regimen
12/10/23 12/10/23 12/10/23
12:20 18:02 21:22
Glucose
POC Glucose 319 H 223 H 173 H
12/10/23 12/11/23 12/11/23
23:59 05:15 06:19
Glucose 110 H
POC Glucose 155 H 101 H
12/11/23
08:14
Glucose
POC Glucose 124 H
Meal type: Breakfast
Patient Education
--- NOTE | 2023-12-11 09:20 | W.PN.PUL3 ---
Today's Communication / Plan
-
Respiratory status unchanged
Continue plasmapheresis
Continue to monitor for vital capacity and MIP
Continue with nutritional support via Dobbhoff tube
Aspiration precaution
Incentive spirometry
Physical therapy/Occupational Therapy as able.
Assessment
-
Assessment:
Mr Shree Thomas is an 78/M adm 12-05 with dysphagia on DOA in setting of known h/o MG. Follows with Neurology for Ab positive MG, had flare of MG in Aug, received IVIG and CS with improvement, did not require PEG, post d/c started on
vygart/efgartidomod alpha, unfortunately developed skin rash, currently awaiting for approval of rozanolixizumab/rystiggo, continues on chronic mestinon. Started IVIG and IV MP pulse upon adm. Had to received DHT due to poor performance on bedside
speech evaluation 12-06 (known h/o variable degrees of dysphagia on multiple prior VSEs). VC monitored since 12-05 (1.8L, 64% of predicted 2.8L), MIP monitored since 12-06 (-20 cwp). Today VC 1.4L and MIP -32 cwp). Noted VC 2.27L and NIF -30 in Aug
7h
Impression:
Myasthenia gravis flare
Dysphagia
OMAR
Vomit episode 12-07
Conditions SUPERVISOR COSTUMING:
MG, on pyridostigmine
Dysphagia s/p cricopharyngeal myotomy, past h/o PEG
CAD, s/p CABGx3
HTN
HLD
PPM
IDDM on insulin pump
Hypothyroidism
2011
Vertigo
Scoliosis
R TKR
Appendectomy
Hernia repair
Remote h/o pipe smoking
Plan:
Pulmonary status has remained stable.
No significant oxygen requirements.
Conversant in full sentences, no drooling, strong cough effort.
Myasthenia gravis flare
Per neurology
Steroids on hold
Plasmapheresis
-
MIP monitored since 12-06 (-20 cwp)
12/08 (-30 CMH20)
12/09(-30)
12/10 (-30cc)
VC monitored since 12-05 (1.8L, 64% of predicted 2.8L)
VC 12/10/2023 (1.2L)
VC 12/11/2023 (1.5L)
-
Appears resp marcos stable at time of visit, clear MS, speaking in full sentences, no drooling
Keep asp precs
Continue monitoring VC and MIP daily if possible. Seems to be stable to improving.
-
Hypoxemic respiratory failure: Possibly aspiration.
Monitor leukocytosis and fevers.
Wean off oxygen. Only requiring low rate oxygen supplementation. Current pulse ox is 99%.
Chest x-ray noted.
Continue Zosyn, will complete 5 to 7 days of antibiotic therapy.
Keep asp precs
Dobbhoff tube in place
For swallowing evaluation.
prn DNs
increase mobility as able. Physical therapy/Occupational Therapy.
Will follow.
Subjective Data
-
Date of Service:
Date of Service: December 11, 2023
Chief Complaint: Pulmonary Follow Up
Subjective:
Continues to report intermittent coughing.
No significant phlegm production.
Denies shortness of breath at rest.
He has not been able to move much.
Review of Systems
General: Fever (n)
Cardiopulmonary: Dyspnea (none at rest), Cough, Sputum Production (n), Wheezing (n) and Chest Pain (n)
GI: Abdominal Pain (n)
Objective Data
Data Reviewed
Vital Signs / I&O / Oxygen:
Vital Signs
Temp Pulse Resp BP Pulse Ox
98.0 F 70 22 133/58 99
12/11/23 07:36 12/11/23 08:00 12/11/23 08:00 12/11/23 08:00 12/11/23 08:00
Intake and Output
12/10/23 12/11/23 12/12/23
06:59 06:59 06:59
Intake Total 2750 / 2750 2350 / 2350
Output Total 1999 / 1999 1050 / 1050
Balance 750 / 750 1300 / 1300
SaO2 99
Nasal Cannula flow liters per 2
minute
Physical Exam
General: Respiratory Distress (n)
HEENT: Normocephalic and Moist Mucous Membranes
Cardiovascular: Regular Rhythm, Murmur (n) and Peripheral Edema (n)
Respiratory: Rhonchi (trace), Non-Labored Respirations and Stridor (n)
GI: Soft, Non Distended and Non Tender
Neurology: Awake, AO x 3 and Other (weak)
Skin: Warm
Labs/Micro/Reports
Lab Data
12/11/23 05:15
12/11/23 05:15
[2023-12-11] MEDS: CALCIUM GLUCONATE 10% INJECTION 289.5 GRAMS IV (10:14)
[2023-12-11] MEDS: CALCIUM GLUCONATE 10% INJECTION 289.5 MG IV (10:14)
--- NOTE | 2023-12-11 10:42 | CM ---
Addendum entered by Sachi Gracia RN 12/11/23 16:37:
PT & OT 12/10 recommend skilled rehab.
Met with patient and daughter in law Tramaine; discussed short term SNF for rehab and provided SNF list. DIL suggested [facility] to the patient. Patient will review SNF list and decide.
Provided Eliquis Free Month Card.
Plan follow up with patient & son for SNF preferences.
Original Note:
Patient with Dx acute hypoxemic resp failure, Acute myasthenia gravis flare, new onset atrial flutter. O2 2L. V Paced. Receiving IV Zosyn, IV promethazine gtt. Plasmapheresis. VSE yesterday. Dobhoff tube - Jevity tube feeds. PT & OT 12/06
recommend HH.
CM Consult: Oro check Eliquis 5mg BID
Spoke with pharmacist [facility] pharmacy; Eliquis 1 month supply is $47.00
Spoke with son Rl; he will ask his dad if he can afford the Eliquis. Explained Eliquis Free Month card.
Son states that patient was doing his own tube feeds at home, but he had difficulty pushing the plunger/met resistance. He does not know the infusion provider for the tube feeds and the feeds at home are . His father had Julio Cesarmelanie RICHARD who
assisted with the tube feeds. He is hoping that the tube feeds will not be needed at home.
Son reports that the patient needs to be able to do a flight of stairs to go home alone or he will need SNF for rehab. Son cannot take the patient to his house as he also has a flight of stairs.
Message to PT Shakira & OT Cary requesting updated PT/OT evals.
Plan follow patient's O2 needs, tube feed needs, mobility needs.
--- NOTE | 2023-12-11 11:33 | PTCARENOTE ---
Patient just received 2nd treatment of plasmapharesis with Kuldeep middleton RN. Calcium gluconate infused with IVIG as ordered. Vital signs stable. Aflutter with A pacing on monitor. Call meza in reach. Will continue to monitor.
[2023-12-11 11:42] LABS: NT-proBNP 1210 pg/ml
[2023-12-11 13:02] LABS: Glucose - Point of Care 137 mg/dl (70-99)
[2023-12-11] MEDS: MIRALAX TUBE (13:07)
--- NOTE | 2023-12-11 14:23 | PTCARENOTE ---
Right nare doghoff clogged. Reinserted by TIRE DESIGN ENGINEER. Waiting for abdominal XRAY to confirm placement.
[2023-12-11] MEDS: ELIQUIS 5 MG PO ×2 (14:55→21:35)
[2023-12-11] MEDS: FLUSH (NSS) 2 FLUSH IV (14:56)
[2023-12-11 18:17] LABS: Glucose - Point of Care 140 mg/dl (70-99)
[2023-12-11] MEDS: XALATAN OPHTHALMIC SOLUTION 1 DROP BOTH EYES (21:35)
[2023-12-11] MEDS: LANTUS 0.200000000000000011 UNITS SC (23:52)
[2023-12-11] MEDS: NOVOLOG FLEXPEN-MODERATE RESISTANCE 5 UNITS SC (23:53)
[2023-12-12] VITALS (12 sets, daily range): BP systolic 102–144; BP diastolic 49–103; BMI 24.2
[2023-12-12 00:02] LABS: Glucose - Point of Care 271 mg/dl (70-99)
[2023-12-12] MEDS: ZOSYN 50 IV (01:43)
[2023-12-12 04:06] LABS: Hematocrit 39.2 % (39.0-52.0); Hemoglobin 13.1 g/dL (13.0-18.0); Mean Corp Hgb Conc. 33.4 g/dL (33.0-37.0); Mean Corpuscular Volume 92.7 fL (80.0-94.0); Red Blood Cell Count 4.23 10^6/uL (4.70-6.10); Red Cell Dist. Width 13.9 % (11.5-14.5); White Blood Cell Count 9.1 10^3/uL (4.8-10.8)
[2023-12-12 05:18] LABS: Platelet Count 65 10^3/uL (130-400)
[2023-12-12] MEDS: LOPRESSOR 12.5 MG TUBE ×4 (05:27→22:50)
[2023-12-12] MEDS: SYNTHROID 112 MCG TUBE (05:28)
[2023-12-12 05:36] LABS: Glucose - Point of Care 336 mg/dl (70-99)
[2023-12-12 06:05] LABS: Blood Urea Nitrogen 37 mg/dl (9-20); Calcium 8.2 mg/dl (8.4-10.2); Carbon Dioxide 30 mmol/L (22-30); Chloride 111 mmol/L (98-107); Estimated Creatinine Clearance 65 ml/min; Glucose 304 mg/dl (70-99); Magnesium 2.3 mg/dl (1.6-2.3); Potassium 4.1 mmol/L (3.5-5.1); Sodium 144 mmol/L (135-145); eGFR > 60.00
[2023-12-12 06:10] LABS: Glucose - Point of Care 302 mg/dl (70-99)
[2023-12-12] MEDS: NOVOLOG FLEXPEN 10 UNITS SC ×3 (06:15→18:45)
[2023-12-12] MEDS: NOVOLOG FLEXPEN-MODERATE RESISTANCE 7 UNITS SC (06:16)
--- NOTE | 2023-12-12 08:03 | PN.DE.MGMTRT ---
Insulin Management
- -
12/12/2023: Diabetes Management Follow up:
Patient admitted myasthenia gravis flare manifesting with dysphagia.
Pt states that he has had difficulty with both solid and liquid food as well as his oral medications.
PMH includes: HTN, HLD, CAD, CHF, hypothyroidism, antibody positive myasthenia gravis, IDDM, A1C 7.3%, was 7.1% on 06/06/23.
Was using [employer] 780G pump with NovoLog insulin, Quick Sets and CGM prior to admission, pump is at the bedside with supplies. He follows with Dr. Subramanian and sees Levar Alvarez.
He was noted for elevated glucose levels on initiation of IV steroids and was started on insulin drip-->transitioned off over the weekend to basal insulin with corrective and no standing short acting dose.
Patient is awake, alert and oriented. He states he is just exhausted. Discussed continuing to hold his pump and give injections, he is agreeable.
He remains NPO. Glucose 12/10 AM 101, patient refused standing dose of novolog 10 units.
Yesterday AM NG tube clogged, tube feeds on HOLD. Glucose 101 in AM. Lantus @ hs decreased from 25 to 20 units. Tube feeds resumed yesterday afternoon @ 60 per hour. Fasting glucose this AM 302.
Will resume Lantus to 25 units BID, NovoLog to 10 units Q6 hrs and cont moderate corrective insulin.
Discussed diabetes management plan with patient and nurse.
Diabetes History
- -
Type of Diabetes: 2 requiring insulin
Pre-Admission Diabetes Regimen
12/12/23 12/12/23
03:57 05:25
Creatinine Cancelled 1.0
Lab Results
Hemoglobin A1c 7.3 % (4.0-5.6) H 12/07/23 04:54
Insulin Pump Settings
IP Diabetes Regimen
12/11/23 12/11/23 12/11/23
08:14 12:51 18:05
Glucose
POC Glucose 124 H 137 H 140 H
12/11/23 12/12/23 12/12/23
23:51 03:57 05:25
Glucose Cancelled 304 H
POC Glucose 271 H 336 H
12/12/23
05:57
Glucose
POC Glucose 302 H
Patient Education
--- NOTE | 2023-12-12 08:14 | W.PN.NEURO.1 ---
Today's Communication / Plan
-
-Mestinon via NG tube
-Received 2/5 planned plasmapheresis sessions, plan for next tomorrow. Can take several days and a couple sessions to see improvement.
-Watch respiratory function
Neuro Assessment/Plan
Assessment
Patient is an 78-year-old male with a PMH of CAD, HTN, IDDM, and antibody positive myasthenia gravis who presented to on 12/06/23 with report of dysphagia and not being able take all his pills properly.
Patient had been seen by our Neurology service in August 2023 for presumed flare of myasthenia gravis treated with IVIG and steroids and he did show improvement, was able to be discharged without any PEG tube.
After discharge he was started on Vygart/Efgartidomod Reginald as an immune therapy for control of myasthenia gravis and he had his second dose in the early part of October approximately 10/31 but did have development of rash on his abdomen after this so
has been stopped from that medication. Plan per his regular neurologist Dr Blue was to get a different immune medication for myasthenia gravis (Rozanolixizumab/Rystiggo) and is still pending approval at this time he has not received his first dose
of this.
Impressions:
MG exacerbation manifesting with dysphagia. It is possible that his reported recent GI illness could have triggered this. Patient had adverse reaction to the previous immune medication for myasthenia gravis (Vyvgart given in early October) and has
not been started on a new immune medication yet but is pending approvals for Rystiggio. He developed OMAR 2/2 possibly as s/e of IVIG and has been switched to PLEX, good improvement after this.
Subjective/Objective
Subjective Data
Date of Service: December 12, 2023
No acute events, has some sore throat, didn't sleep much, no double vision or ptosis, no dyspnea
Objective Data
Vital Signs
Temp Pulse Resp BP Pulse Ox
98.6 F 71 15 139/70 93
12/12/23 04:25 12/12/23 06:00 12/12/23 06:00 12/12/23 06:00 12/12/23 06:00
Lab Results
12/12/23 03:57
12/12/23 05:25
Sodium 144 mmol/L (135-145) 12/12/23 05:25
Potassium 4.1 mmol/L (3.5-5.1) 12/12/23 05:25
BUN 37 mg/dl (9-20) H 12/12/23 05:25
Glucose 304 mg/dl (70-99) H 12/12/23 05:25
Calcium 8.2 mg/dl (8.4-10.2) L 12/12/23 05:25
Bxe-J-Rajelubusqv Pept 1210 pg/ml 12/11/23 05:15
Patient Allergies
efgartigimod reginald-fcab [From Vyvgart] Allergy (Verified 12/06/23 10:53)
Rash
Review of Systems
-
History Source: Patient
All other systems: Reviewed and negative
Constitutional: No Symptoms
EENT: No Symptoms Reported
Respiratory: No Symptoms
Cardiac: No Symptoms
Abdomen/GI: No Symptoms
Genitourinary: No Symptoms
Musculoskeletal: No Symptoms
Skin: No Symptoms
Neuro: See existing Neuro Note
Endocrine: No Symptoms
Hematologic / Lymphatic: No Symptoms
Allergy / Immunology: No Symptoms
Physical Exam
-
General: Comfortable
Eyes: Round OU
HEENT: Other (NG tube)
Neck: Other (Right pharesis catheter no abnormalities)
Respiratory: No Dyspnea; Negative Wheezes
Cardiac: No Murmur
GI: Soft and Non-tender
Skin: Warm and Dry; Negative Rash
Extremities: No Edema
Psych: Intact Judgement/Insight; Negative Agitated
Extended Neurological Exam
Attention Span & Concentration: Awake, Alert and Interactive
Memory: Unremarkable
Tremor: Hand Tremor Absent
Involuntary Movement: None
Speech: Dysarthric; Negative Expressive Aphasia or Receptive Aphasia
Cranial Nerve II: Left Eye: Pupillary Reactivity Unremarkable and Pupillary Size Unremarkable
Cranial Nerve II: Right Eye: Pupillary Reactivity Unremarkable and Pupillary Size Unremarkable
Cranial Nerves III, IV, : Extraocular Movement: Extraocular Movement Full in all Directions
Muscle Strength, Overall: Full Throughout and Other (Neck flexion shoulder abduction 5/5)
Deep Tendon Reflexes: Trace Throughout
Data Reviewed
-
Labs: Report Reviewed
--- NOTE | 2023-12-12 08:23 | W.PN.HOSP.TC ---
Today's Communication/Plan
-
hurricane spray
cont plasmapheresis
stop zosyn
send HIT assay
Assessment / Plan
Assessment / Plan
pt is an 78 year old male
'dry heaves'--think irritation from feeding tube as opposed to true nausea--will give hurricane spray
acute hypoxemic resp failure--think due to aspiration--on 2L O2--apprec resp therapy--wean O2 as able--CXR with retrocardiac atelectasis vs PNA (more likely as aspirated 12/07)--cont PRN nebs--was on rocephin/flagyl (flagyl may contribute to
n/v)--changed to zosyn (no further n/v and tolerating tube feeds)--still has not passed swallow eval--might need [facility] feeding tube if no improvement
OMAR--creat went from 0.9 to 2.9--possibly due to elevated sugars, dehydration, IVIG--holding lasix/lisinopril--improved with plasmapheresis
thrombocytopenia -- was on Lovenox, switched to Eliquis, sent HIT assay--could also be piperacillin part of zosyn--will stop and re-eval--consider ID consult
Diabetes mellitus type 2--on insulin pump which will hold because of his dysphagia and n.p.o. status--sugars ran very high with addition of steroids--asked DM LIME MIXER for assistance but needed insulin drip for better sugar control --off insulin drip as
of 12/07 and started SQ lantus and mod SSI, will need adjustments--still running high
Acute myasthenia gravis flare with the dysphagia and occasional diplopia--apprec neuro--seen by speech--not safe for PO intake, only ice chips--asked GI to place feeding tube (Dobhoff)--pulled out last night, replaced this AM-- plasmapheresis
(started 12/08, next treatment 12/10) as per neuro--VSE--still has not passed swallow eval--might need [facility]p feeding tube if no improvement
CAD without any chest pain--continue with his home medication statins--On dual anti platelet agents as well as statins--changed meds to tube
Essential Hypertension--continue with his home medications as able
Hyperlipidemia--continue with his medication
constipation--start bowel regimen
Full code
Anticipated Discharge: > 48 hours
Subjective/Interval History
-
Date of Service: December 12, 2023
pt c/o dry heaves and bowel movments
Objective Data
-
Labs:
Laboratory Results
12/12/23 12/12/23
03:57 05:25
WBC 9.1
Hgb 13.1
Hct 39.2
Plt Count 65 L D
Sodium Cancelled 144
Potassium Cancelled 4.1
Chloride Cancelled 111 H
Carbon Dioxide Cancelled 30
BUN Cancelled 37 H
Creatinine Cancelled 1.0
Glucose Cancelled 304 H
Calcium Cancelled 8.2 L
Vital Signs:
max temp for 24 hours
12/11/23
23:26
Temp 98.7 F
Vital Signs
Temp Pulse Resp BP Pulse Ox
98.6 F 71 15 139/70 93
12/12/23 04:25 12/12/23 06:00 12/12/23 06:00 12/12/23 06:00 12/12/23 06:00
I&O
12/11/23 12/12/23 12/13/23
06:59 06:59 06:59
Intake Total 2350 / 2350 970 / 970
Output Total 1050 / 1050 785 / 785
Balance 1300 / 1300 185 / 185
Review of Systems
-
All other systems: Reviewed and negative
Abdomen/GI: Reports Other (dry heaves)
Physical Exam
-
General: Well Developed, Well Nourished and No Apparent Distress
HEENT: Normocephalic and Atraumatic
Respiratory: Clear to Auscultation; Negative Wheezes or Rhonchi
Cardiac: Regular Rhythm and S1/S2; Negative Murmur
GI: Soft, Nontender, Nondistended and Normal Bowel Sounds
Musculoskeletal: No Clubbing, No Cyanosis and No Edema
Neuro: Awake and Alert
[2023-12-12] MEDS: MIRALAX TUBE (09:20)
[2023-12-12] MEDS: ZOSYN IV (09:20)
[2023-12-12] MEDS: HURRICAINE SPRAY 1 APPLIC TOPICAL (09:32)
[2023-12-12] MEDS: LANTUS 0.25 UNITS SC ×2 (09:38→22:52)
[2023-12-12] MEDS: ROCEPHIN 1000 MG IV (09:40)
[2023-12-12] MEDS: STERILE WATER FOR INJECTION 10 ML IV (09:40)
[2023-12-12] MEDS: ELIQUIS 5 MG PO ×2 (09:41→20:01)
[2023-12-12] MEDS: NORVASC 5 MG TUBE (09:41)
[2023-12-12] MEDS: LIPITOR 80 MG TUBE (09:41)
[2023-12-12] MEDS: FLUSH (NSS) 2 FLUSH IV (09:41)
[2023-12-12] MEDS: ZESTRIL 40 MG TUBE (09:47)
[2023-12-12] MEDS: MESTINON 60 MG TUBE ×3 (09:47→22:50)
[2023-12-12 09:53] LABS: Glucose - Point of Care 284 mg/dl (70-99)
--- NOTE | 2023-12-12 09:59 | W.PN.PUL3 ---
Today's Communication / Plan
-
Continue to monitor for vital capacity and nebs
Complete 7 days of antibiotic
Incentive spirometry
Oxygen as needed
Continue with therapy for myasthenia gravis flare Per neurology
Assessment
-
Assessment:
Mr Shree Thomas is an 78/M adm 12-05 with dysphagia on DOA in setting of known h/o MG. Follows with Neurology for Ab positive MG, had flare of MG in Aug, received IVIG and CS with improvement, did not require PEG, post d/c started on
vygart/efgartidomod alpha, unfortunately developed skin rash, currently awaiting for approval of rozanolixizumab/rystiggo, continues on chronic mestinon. Started IVIG and IV MP pulse upon adm. Had to received DHT due to poor performance on bedside
speech evaluation 12-06 (known h/o variable degrees of dysphagia on multiple prior VSEs). VC monitored since 12-05 (1.8L, 64% of predicted 2.8L), MIP monitored since 12-06 (-20 cwp). Today VC 1.4L and MIP -32 cwp). Noted VC 2.27L and NIF -30 in Aug
7h
Impression:
Myasthenia gravis flare
Dysphagia
OMAR
Vomit episode 12-07
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
MG, on pyridostigmine
Dysphagia s/p cricopharyngeal myotomy, past h/o PEG
CAD, s/p CABGx3
HTN
HLD
PPM
IDDM on insulin pump
Hypothyroidism
TIA 2011
Vertigo
Scoliosis
R TKR
Appendectomy
Hernia repair
Remote h/o pipe smoking
Plan:
From the respiratory status remains relatively stable.
No significant oxygen requirements.
Conversant in full sentences, no drooling, strong cough effort.
Myasthenia gravis flare
Per neurology
Steroids on hold
Mestinon via NG tube
Plasmapheresis
-
MIP monitored since 12-06 (-20 cwp)
12/08 (-30 CMH20)
12/09(-30)
12/10 (-30cc)
VC monitored since 12-05 (1.8L, 64% of predicted 2.8L)
VC 12/10/2023 (1.2L)
VC 12/11/2023 (1.5L)
-
Appears resp marcos stable at time of visit, clear MS, speaking in full sentences, no drooling
Keep asp precs
Continue monitoring VC and MIP daily if possible.
Seems to be stable to improving. Slow progress.
-
Hypoxemic respiratory failure: Possibly aspiration. Mostly resolved.
Monitor leukocytosis and fevers.
Chest x-ray noted.
Would complete total 7 days of antibiotics. Has been transition to ceftriaxone.
Incentive spirometry encourage
-
Keep asp precs
Dobbhoff tube in place
For swallowing evaluation.
prn DNs
increase mobility as able. Physical therapy/Occupational Therapy.
Will follow.
Subjective Data
-
Date of Service:
Date of Service: December 12, 2023
Chief Complaint: Pulmonary Follow Up
Subjective:
No new respiratory complaints
Patient mostly in bed or in the chair.
Continues to have a strong cough effort
No significant phlegm production
Review of Systems
General: Fever, Sweats, Chills, Satisfactory Appetite, Pain, Rash, Bruising, Bleeding, Elevated Blood Sugar, Unobtainable - Pat Unresp, Unobtainable - Sedation and Other
Objective Data
Data Reviewed
Vital Signs / I&O / Oxygen:
Vital Signs
Temp Pulse Resp BP Pulse Ox
98.1 F 70 16 123/68 93
12/12/23 07:25 12/12/23 08:00 12/12/23 08:00 12/12/23 08:00 12/12/23 08:00
Intake and Output
12/11/23 12/12/23 12/13/23
06:59 06:59 06:59
Intake Total 2350 / 2350 970 / 970
Output Total 1050 / 1050 785 / 785
Balance 1300 / 1300 185 / 185
SaO2 93
Nasal Cannula flow liters per 2
minute
Physical Exam
General: Respiratory Distress (n)
HEENT: Normocephalic and Moist Mucous Membranes
Cardiovascular: Regular Rhythm, Murmur (n) and Peripheral Edema (n)
Respiratory: Rhonchi (trace), Non-Labored Respirations and Stridor (n)
GI: Soft, Non Distended and Non Tender
Neurology: Awake, AO x 3 and Other (weak)
Skin: Warm
Labs/Micro/Reports
Lab Data
12/12/23 03:57
12/12/23 05:25
--- NOTE | 2023-12-12 10:03 | W.PN.PUL3 ---
Assessment
-
Assessment:
Mr Shree Thomas is an 78/M adm 12-05 with dysphagia on DOA in setting of known h/o MG. Follows with Neurology for Ab positive MG, had flare of MG in Aug, received IVIG and CS with improvement, did not require PEG, post d/c started on
vygart/efgartidomod alpha, unfortunately developed skin rash, currently awaiting for approval of rozanolixizumab/rystiggo, continues on chronic mestinon. Started IVIG and IV MP pulse upon adm. Had to received DHT due to poor performance on bedside
speech evaluation 12-06 (known h/o variable degrees of dysphagia on multiple prior VSEs). VC monitored since 12-05 (1.8L, 64% of predicted 2.8L), MIP monitored since 12-06 (-20 cwp). Today VC 1.4L and MIP -32 cwp). Noted VC 2.27L and NIF -30 in Aug
7h
Impression:
Myasthenia gravis flare
Dysphagia
OMAR
Vomit episode 12-07
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
MG, on pyridostigmine
Dysphagia s/p cricopharyngeal myotomy, past h/o PEG
CAD, s/p CABGx3
HTN
HLD
PPM
IDDM on insulin pump
Hypothyroidism
TIA 2011
Vertigo
Scoliosis
R TKR
Appendectomy
Hernia repair
Remote h/o pipe smoking
Plan:
From the respiratory status remains relatively stable.
No significant oxygen requirements.
Conversant in full sentences, no drooling, strong cough effort.
Myasthenia gravis flare
Per neurology
Steroids on hold
Mestinon via NG tube
Plasmapheresis
-
MIP monitored since 12-06 (-20 cwp)
12/08 (-30 CMH20)
12/09(-30)
04/23 (-30cc)
VC monitored since 12-05 (1.8L, 64% of predicted 2.8L)
VC 12/10/2023 (1.2L)
VC 12/11/2023 (1.5L)
-
Respiratory status very slowly improving. Continues to have strong cough effort.
Keep asp precs
Continue monitoring VC and MIP daily if possible.
Seems to be stable to improving. Slow progress.
-
Hypoxemic respiratory failure: Possibly aspiration. Mostly resolved.
Monitor leukocytosis and fevers.
Chest x-ray noted.
Would complete total 7 days of antibiotics. Has been transition to ceftriaxone.
Incentive spirometry encourage
-
Keep asp precs
Dobbhoff tube in place
For swallowing evaluation.
prn DNs
increase mobility as able. Physical therapy/Occupational Therapy.
Will follow.
Subjective Data
-
Date of Service:
Date of Service: December 12, 2023
Chief Complaint: Pulmonary Follow Up
Subjective:
No overnight events from the pulmonary perspective
Continues to have strong cough effort.
Minimal phlegm production
Review of Systems
General: Fever (n)
Cardiopulmonary: Dyspnea on Exertion, Cough and Sputum Production (n)
GI: Abdominal Pain (n) and Nausea (n)
Objective Data
Data Reviewed
Vital Signs / I&O / Oxygen:
Vital Signs
Temp Pulse Resp BP Pulse Ox
98.1 F 70 16 123/68 93
12/12/23 07:25 12/12/23 08:00 12/12/23 08:00 12/12/23 08:00 12/12/23 08:00
Intake and Output
12/11/23 12/12/23 12/13/23
06:59 06:59 06:59
Intake Total 2350 / 2350 970 / 970
Output Total 1050 / 1050 785 / 785
Balance 1300 / 1300 185 / 185
SaO2 93
Nasal Cannula flow liters per 2
minute
Physical Exam
General: Respiratory Distress (n)
HEENT: Normocephalic and Moist Mucous Membranes
Cardiovascular: Regular Rhythm, Murmur (n) and Peripheral Edema (n)
Respiratory: Rhonchi (trace), Non-Labored Respirations and Stridor (n)
GI: Soft, Non Distended and Non Tender
Neurology: Awake, AO x 3 and Other (weak)
Skin: Warm
Labs/Micro/Reports
Lab Data
12/12/23 03:57
12/12/23 05:25
--- NOTE | 2023-12-12 11:08 | CM ---
CM following re: discharge planning.
Reviewed pt's chart, met with pt.
PT and OT have been recommending SNF level of care. Pt is awre, expressed his agreement and following SNFs preferred: [facility] number one choice. 2: [facility] and 3: [facility].
A referral to above SNFs made. Awaiting for determination.
D/C plan: preferred SNF.
CM will follow to assist pt with discharge to a preferred and accepted SNF.
[2023-12-12 12:46] LABS: Glucose - Point of Care 298 mg/dl (70-99)
[2023-12-12] MEDS: NOVOLOG FLEXPEN-MODERATE RESISTANCE 5 UNITS SC ×2 (13:02→18:44)
--- NOTE | 2023-12-12 14:03 | W.PN.CARDCBS ---
Addendum entered and electronically signed by Juice Sharma MD 12/12/23 15:51:
I saw and examined the patient.
[employer] Account Executive's note was reviewed and I agree with the note.
Comment:
GEN: No distress, awake, Ox3
HEENT: supple, anicteric, mmm, dophoff
LUNGS: scatt rhonchi
CV: Reg, S1/S2, /6 syst LSB, no gallop
ABD: soft, BS+, NT/ND
EXT: No edema
NEURO: Gross non-focal
SKIN: No rash
Plan:
He remains in rate controlled atrial flutter. With new thrombocytopenia and concern for aspiration and dysphagia would hold off on cardioversion this admission.
Continue Eliquis for now but if platelet count drops further may need to hold full anticoagulation.
Continue metoprolol.
Continue antibiotics and plasmapheresis.
Original Note:
Today's Communication / Plan
-
remains in rate controlled aflutter. continue lopressor through tube
continue eliquis, follow plts
consider for OP CV
Impression / Plan
-
Primary Box Spring Maker: Dr. Murali Wagner
Assessment:
Presentation with dysphagia, dobhoff placed
Acute hypoxemic respiratory failure
Cough
L PNA, concern for aspiration
OMAR, improved
Atrial flutter, new diagnosis, noted onset 12/09 in hospital
Recent diagnosis vertigo as OP, improved
CAD status post CABG in 2017
Brief postop A-fib
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
Chronic heart failure preserved EF
Sick sinus syndrome status post [employer] pacemaker 2010
Hypertension
Hyperlipidemia
Type 1 diabetes, insulin-dependent
Hypothyroidism
Myasthenia gravis
History of TIA/CVA
Chronic venous insufficiency
Possible prior esophageal stricture treated at [facility]
ECHO 2019: EF 55 to 60%, MAC, mild MR, moderate TR, PAP 32 mmHg
ECHO 12/11/23: EF 53%, trace MR, mild to moderate TR, PAP 32 mmHg, trace IL
Plan:
-Patient presented to [facility] with dysphagia. He remains with Dobhoff in place as still has not passed swallow eval. Speech therapy following
-he is getting plasmapheresis. of note, he did not receive his last OP Rystiggo infusion due to rash. getting mestinon via NG tube.
-Also noted to have left-sided pneumonia on review of imaging. There is concern for aspiration given above. Continue treatment per primary service
-he remains in rate controlled atrial flutter, new diagnosis this admission. by device interrogation aflutter started 6:19PM on 12/09. Continue outpatient lopressor through tube (was on toprol 50mg daily as OP)
-[id number] score of 8 for age, h/o TIA/CVA, HTN, DM2, CHF, vascular disease. Was on aspirin and Plavix as an outpatient given history of TIA/CVA, remote as well as history of CABG in 2017. transitioned to eliquis alone as of 12/11/23. trend plts,
65K on 12/11. zosyn stopped as felt to possibly be contributing
-could consider for OP CV
-proBNP 1210. follow volume status
-echo 12/10 with results as above
-TSH 4.79 with compensated free T4 on levothyroxine as OP
-d/w nursing. d/w hospitalist
Progress Note - Box Spring Maker
Subjective
Date of Service: December 12, 2023
continues with dry heaving
Objective
Labs:
12/12/23 03:57
12/12/23 05:25
Labs
Hgb 13.1 g/dL (13.0-18.0) 12/12/23 03:57
Hct 39.2 % (39.0-52.0) 12/12/23 03:57
Plt Count 65 10^3/uL (130-400) L D 12/12/23 03:57
Sodium 144 mmol/L (135-145) 12/12/23 05:25
Potassium 4.1 mmol/L (3.5-5.1) 12/12/23 05:25
BUN 37 mg/dl (9-20) H 12/12/23 05:25
Creatinine 1.0 mg/dL (0.7-1.3) 12/12/23 05:25
Glucose 304 mg/dl (70-99) H 12/12/23 05:25
Vital Signs and I&O:
Vital Signs
Temp Pulse Resp BP Pulse Ox
98.1 F 70 16 118/58 96
12/12/23 11:15 12/12/23 12:00 12/12/23 12:00 12/12/23 12:00 12/12/23 12:06
Vital Signs
Temp Pulse Resp BP Pulse Ox
98.1 F 70 16 118/58 96
12/12/23 11:15 12/12/23 12:00 12/12/23 12:00 12/12/23 12:00 12/12/23 12:06
Intake & Output
12/10/23 12/11/23 12/12/23 12/13/23
07:59 07:59 07:59 07:59
Intake Total 2750 / 2750 2350 / 2350 970 / 970
Output Total 1999 / 1999 1050 / 1050 785 / 785
Balance 750 / 750 1300 / 1300 185 / 185
--- NOTE | 2023-12-12 15:15 | PTOTSP ---
Speech Language Pathology
Pt seen for dysphagia tx. P.O. trials of ice chips, thin liquids, and 1/2 tsp of puree. Adequate oral phase noted. Pt reported slight pharyngeal residue with puree. No overt signs of aspiration noted until 15th sip of liquid, and pt is a
responsive aspirator. Therefore, suspect improved swallow function with tolerance of liquids until fatigue set in.
Recommend:
(1) NPO
(2) Allow ice chips and sips of water post oral care per Aspiration Risk Hydration Protocol (ARHP)
(3) Meds via DHT
(4) Oral care 4x/day with suctioning as needed
(5) Repeat VSE Wednesday 12/13
[2023-12-12 18:22] LABS: Glucose - Point of Care 285 mg/dl (70-99)
[2023-12-12] MEDS: XALATAN OPHTHALMIC SOLUTION 1 DROP BOTH EYES (22:56)
[2023-12-12 23:07] LABS: Glucose - Point of Care 145 mg/dl (70-99)
[2023-12-13] VITALS (29 sets, daily range): BP systolic 84–144; BP diastolic 39–94; BMI 24.4
[2023-12-13] MEDS: NOVOLOG FLEXPEN-MODERATE RESISTANCE 1 UNITS SC (00:13)
[2023-12-13] MEDS: NOVOLOG FLEXPEN 10 UNITS SC ×3 (00:14→17:56)
[2023-12-13 00:24] LABS: Glucose - Point of Care 162 mg/dl (70-99)
--- NOTE | 2023-12-13 02:16 | PTCARENOTE ---
Jagruti duarte patent with TF at 60ml/hr. Pt tolerating. One episode incontinence of small brown loose/liq stool. Hygiene care provided. Assessment as documented. Call meza within reach and pt ringing appropriately
[2023-12-13 05:10] LABS: Hematocrit 41.9 % (39.0-52.0); Hemoglobin 13.9 g/dL (13.0-18.0); Mean Corp Hgb Conc. 33.2 g/dL (33.0-37.0); Mean Corpuscular Hgb 30.8 pg (27.0-31.0); Mean Corpuscular Volume 92.7 fL (80.0-94.0); Mean Platelet Volume 12.2 fL (7.4-10.4); Platelet Count 95 10^3/uL (130-400); Red Blood Cell Count 4.52 10^6/uL (4.70-6.10); Red Cell Dist. Width 14.1 % (11.5-14.5); White Blood Cell Count 13.7 10^3/uL (4.8-10.8)
[2023-12-13 05:29] LABS: Blood Urea Nitrogen 40 mg/dl (9-20); Calcium 8.7 mg/dl (8.4-10.2); Carbon Dioxide 34 mmol/L (22-30); Chloride 112 mmol/L (98-107); Estimated Creatinine Clearance 65 ml/min; Glucose 89 mg/dl (70-99); Magnesium 2.4 mg/dl (1.6-2.3); Potassium 3.8 mmol/L (3.5-5.1); Sodium 146 mmol/L (135-145); eGFR > 60.00
[2023-12-13] MEDS: SYNTHROID 112 MCG TUBE (05:53)
[2023-12-13] MEDS: LOPRESSOR 12.5 MG TUBE (05:53)
[2023-12-13 06:00] LABS: Glucose - Point of Care 114 mg/dl (70-99)
[2023-12-13] MEDS: NOVOLOG FLEXPEN-MODERATE RESISTANCE SC ×3 (06:08→17:56)
--- NOTE | 2023-12-13 06:22 | PTCARENOTE ---
Pt experiencing expisode of mild nausea/dry heaving. Pt encouraged to sit up higher in bed. Pt still drinking some sips of ice water per hydration protocol, but encouraged to stop until nausea subsides. Awaiting PRN from pharmacy.
[2023-12-13] MEDS: PHENERGAN 50.25 MG IV (07:18)
[2023-12-13] MEDS: ELIQUIS 5 MG PO ×2 (07:33→19:24)
[2023-12-13] MEDS: MESTINON 60 MG TUBE ×3 (07:33→19:23)
[2023-12-13] MEDS: LIPITOR 80 MG TUBE (07:33)
[2023-12-13] MEDS: ZESTRIL 40 MG TUBE (07:34)
[2023-12-13] MEDS: NORVASC 5 MG TUBE (07:34)
[2023-12-13 07:37] LABS: Glucose - Point of Care 93 mg/dl (70-99)
--- NOTE | 2023-12-13 07:42 | W.PN.NEURO.1 ---
Today's Communication / Plan
-
-Planned for PLEX 10/22 today
-Continue Mestinon
-Plan for video swallow eval 12/13
-NG tube feeds
-Mobilization, out of bed to chair
-Follow respiratory status
Will follow
Neuro Assessment/Plan
Assessment
Patient is an 78-year-old male with a PMH of CAD, HTN, IDDM, and antibody positive myasthenia gravis who presented to on 12/06/23 with report of dysphagia and not being able take all his pills properly.
Patient had been seen by our Neurology service in August 2023 for presumed flare of myasthenia gravis treated with IVIG and steroids and he did show improvement, was able to be discharged without any PEG tube.
After discharge he was started on Vygart/Efgartidomod Reginald as an immune therapy for control of myasthenia gravis and he had his second dose in the early part of October approximately 10/31 but did have development of rash on his abdomen after this so
has been stopped from that medication. Plan per his regular neurologist Dr Blue was to get a different immune medication for myasthenia gravis (Rozanolixizumab/Rystiggo) and is still pending approval at this time he has not received his first dose
of this.
Impressions:
MG exacerbation manifesting with dysphagia. It is possible that his reported recent GI illness could have triggered this. Patient had adverse reaction to the previous immune medication for myasthenia gravis (Vyvgart given in early October) and has
not been started on a new immune medication yet but is pending approvals for Rystiggio. He developed OMAR 2/2 possibly as s/e of IVIG and has been switched to PLEX.
Tolerating PLEX well with some signs of improving dysphagia
Subjective/Objective
Subjective Data
Date of Service: December 13, 2023
Some signs of improvement of swallowing by speech therapy, patient feels sore throat has improved with symptomatic treatments, no headache or double vision, no dyspnea
Objective Data
Vital Signs
Temp Pulse Resp BP Pulse Ox
98.7 F 70 18 135/68 98
12/13/23 07:35 12/13/23 07:34 12/13/23 06:00 12/13/23 07:34 12/13/23 00:31
Lab Results
12/13/23 04:37
12/13/23 04:37
Sodium 146 mmol/L (135-145) H 12/13/23 04:37
Potassium 3.8 mmol/L (3.5-5.1) 12/13/23 04:37
BUN 40 mg/dl (9-20) H 12/13/23 04:37
Glucose 89 mg/dl (70-99) 12/13/23 04:37
Calcium 8.7 mg/dl (8.4-10.2) 12/13/23 04:37
Soh-K-Poghrnreley Pept 1210 pg/ml 12/11/23 05:15
Patient Allergies
efgartigimod reginald-fcab [From Vyvgart] Allergy (Verified 12/06/23 10:53)
Rash
Review of Systems
-
History Source: Patient
All other systems: Reviewed and negative
Constitutional: No Symptoms
EENT: No Symptoms Reported
Respiratory: No Symptoms
Cardiac: No Symptoms
Abdomen/GI: No Symptoms
Genitourinary: No Symptoms
Musculoskeletal: No Symptoms
Skin: No Symptoms
Neuro: Speech Problem and See existing Neuro Note
Endocrine: No Symptoms
Hematologic / Lymphatic: No Symptoms
Allergy / Immunology: No Symptoms
Physical Exam
-
General: Comfortable
Eyes: No Ptosis
HEENT: Normocephalic
Neck: No Bruits Bilaterally
Respiratory: Clear to Auscultation
Cardiac: Regular Rhythm
GI: Normal Bowel Sounds
Skin: Unremarkable
Extremities: No Clubbing
Psych: Intact Judgement/Insight; Negative Agitated
Extended Neurological Exam
Attention Span & Concentration: Awake, Alert and Interactive
Memory: Unremarkable
Tremor: Hand Tremor Absent
Involuntary Movement: None
Speech: Negative Expressive Aphasia, Receptive Aphasia or Dysarthric
Cranial Nerve II: Left Eye: Pupillary Reactivity Unremarkable and Pupillary Size Unremarkable
Cranial Nerve II: Right Eye: Pupillary Reactivity Unremarkable and Pupillary Size Unremarkable
Cranial Nerves III, IV, : Extraocular Movement: Extraocular Movement Full in all Directions
Muscle Strength, Overall: Full Throughout (Neck extension flexion 5/5 shoulder abduction 5/5 bilaterally)
Muscle Bulk & Tone: Bulk Unremarkable and Tone Unremarkable
Pronator Drift: No Drift in Upper Extremities
Touch Sensation: Unremarkable
Babinski Sign: Absent Bilaterally
Data Reviewed
-
Labs: Report Reviewed
--- NOTE | 2023-12-13 08:30 | PTCARENOTE ---
Pt received from manager night. Pt with dobdhoff, receiving TF. Jevity 1.5 hung at start of shift. pt with loose BM's. Am meds given via Dobbhoff without complication. Pt maintained NPO. Q6 glucose checks. Pt AAO, slightly anxious, makes needs known
frequently. Pt with fan at bedside. Pt using urinal. Call meza in reach. See nursing shift assessment for full head to toe.
[2023-12-13] MEDS: LANTUS 0.25 UNITS SC ×2 (09:22→22:41)
--- NOTE | 2023-12-13 09:52 | W.PN.HOSP.TC ---
Today's Communication/Plan
-
plasmapheresis today--treatment 3 of 5
VSE tomorrow
Assessment / Plan
Assessment / Plan
pt is an 78 year old male
'dry heaves'--think irritation from feeding tube as opposed to true nausea--will give hurricane spray--improved
acute hypoxemic resp failure--think due to aspiration--on 2L O2--apprec resp therapy--wean O2 as able--CXR with retrocardiac atelectasis vs PNA (more likely as aspirated 12/07)--cont PRN nebs--was on rocephin/flagyl (flagyl may contribute to
n/v)--changed to zosyn (no further n/v and tolerating tube feeds)--recheck CXR, may be able to stop ABX?--still has not passed swallow eval--might need travel agent feeding tube if no improvement--VSE 12/13
OMAR--creat went from 0.9 to 2.9--possibly due to elevated sugars, dehydration, IVIG--holding lasix/lisinopril--improved with plasmapheresis
thrombocytopenia -- was on Lovenox, switched to Eliquis, sent HIT assay--could also be piperacillin part of zosyn--will stop and re-eval--consider ID consult
Diabetes mellitus type 2--on insulin pump which will hold because of his dysphagia and n.p.o. status--sugars ran very high with addition of steroids--asked DM SOFTWARE TEST SPECIALIST for assistance but needed insulin drip for better sugar control --off insulin drip as
of 12/07 and started SQ lantus and mod SSI, will need adjustments--still running high
Acute myasthenia gravis flare with the dysphagia and occasional diplopia--apprec neuro--seen by speech--not safe for PO intake, only ice chips--asked GI to place feeding tube (Dobhoff)--pulled out last night, replaced this AM-- plasmapheresis
(started 12/08, next treatment 12/10) as per neuro--VSE--still has not passed swallow eval--might need travel agent feeding tube if no improvement--VSE 12/13
diarrhea--likely from tube feeds--bowel regimen stopped
CAD without any chest pain--continue with his home medication statins--On dual anti platelet agents as well as statins--changed meds to tube
Essential Hypertension--continue with his home medications as able
Hyperlipidemia--continue with his medication
constipation--start bowel regimen
Full code
Anticipated Discharge: > 48 hours
Subjective/Interval History
-
Date of Service: December 13, 2023
pt having diarrhea--likely from tube feeds per nursing
Objective Data
-
Labs:
Laboratory Results
12/13/23
04:37
WBC 13.7 H
Hgb 13.9
Hct 41.9
Plt Count 95 L D
Sodium 146 H
Potassium 3.8
Chloride 112 H
Carbon Dioxide 34 H
BUN 40 H
Creatinine 1.0
Glucose 89
Calcium 8.7
Vital Signs:
max temp for 24 hours
12/13/23
07:35
Temp 98.7 F
Vital Signs
Temp Pulse Resp BP Pulse Ox
98.7 F 70 17 135/68 97
12/13/23 07:35 12/13/23 07:34 12/13/23 07:31 12/13/23 07:34 12/13/23 07:55
I&O
12/12/23 12/13/23 12/14/23
06:59 06:59 06:59
Intake Total 970 / 970 1145 / 1145
Output Total 785 / 785 575 / 575
Balance 185 / 185 570 / 570
Review of Systems
-
All other systems: Reviewed and negative
Abdomen/GI: Reports Diarrhea
Physical Exam
-
General: Well Developed, Well Nourished and No Apparent Distress
HEENT: Normocephalic and Atraumatic
Respiratory: Clear to Auscultation; Negative Wheezes or Rhonchi
Cardiac: Regular Rhythm and S1/S2; Negative Murmur
GI: Soft, Nontender, Nondistended and Normal Bowel Sounds
Musculoskeletal: No Clubbing, No Cyanosis and No Edema
[2023-12-13] MEDS: CALCIUM GLUCONATE 10% INJECTION 289.5 GRAMS IV (10:10)
[2023-12-13] MEDS: CALCIUM GLUCONATE 10% INJECTION 289.5 MG IV (10:10)
--- NOTE | 2023-12-13 10:37 | PN.DE.MGMTRT ---
Insulin Management
- -
12/13/2023: Diabetes Management Follow up:
Patient admitted myasthenia gravis flare manifesting with dysphagia.
Pt states that he has had difficulty with both solid and liquid food as well as his oral medications.
PMH includes: HTN, HLD, CAD, CHF, hypothyroidism, antibody positive myasthenia gravis, IDDM, A1C 7.3%, was 7.1% on 06/06/23.
Was using [email or web address] 780G pump with NovoLog insulin, Quick Sets and CGM prior to admission, pump is at the bedside with supplies. He follows with Dr. Subramanian and sees Levar Alvarez.
He was noted for elevated glucose levels on initiation of IV steroids and was started on insulin drip-->transitioned off over the weekend to basal insulin with corrective and no standing short acting dose.
Patient is awake, alert and oriented. He states he is feeling stronger today, feels he may have 'turned the corner'. Discussed continuing to hold his pump and give injections, he is agreeable.
He remains NPO.
Resumed Lantus 25 units BID, yesterday, with NovoLog to 10 units Q6 hrs and cont moderate corrective insulin. Glucose improved by HS 145, fasting this AM 114. Will make no change to regimen.
Discussed diabetes management plan with patient and nurse.
Diabetes History
- -
Type of Diabetes: 1
Pre-Admission Diabetes Regimen
12/13/23
04:37
Creatinine 1.0
Lab Results
Hemoglobin A1c 7.3 % (4.0-5.6) H 12/07/23 04:54
Insulin Pump Settings
IP Diabetes Regimen
12/12/23 12/12/23 12/12/23
12:06 18:09 22:55
Glucose
POC Glucose 298 H 285 H 145 H
12/13/23 12/13/23 12/13/23
00:12 04:37 05:48
Glucose 89
POC Glucose 162 H 114 H
12/13/23
07:24
Glucose
POC Glucose 93
Meal type: Dinner
Patient Education
--- NOTE | 2023-12-13 11:09 | W.PN.PUL3 ---
Today's Communication / Plan
-
Continue to monitor vital capacity and MIP daily.
Continue with therapy for myasthenia gravis flare
Assessment
-
Assessment:
Mr Shree Thomas is an 78/M adm 12-05 with dysphagia on DOA in setting of known h/o MG. Follows with Neurology for Ab positive MG, had flare of MG in Aug, received IVIG and CS with improvement, did not require PEG, post d/c started on
vygart/efgartidomod alpha, unfortunately developed skin rash, currently awaiting for approval of rozanolixizumab/rystiggo, continues on chronic mestinon. Started IVIG and IV MP pulse upon adm. Had to received DHT due to poor performance on bedside
speech evaluation 12-06 (known h/o variable degrees of dysphagia on multiple prior VSEs). VC monitored since 12-05 (1.8L, 64% of predicted 2.8L), MIP monitored since 12-06 (-20 cwp). Today VC 1.4L and MIP -32 cwp). Noted VC 2.27L and NIF -30 in Aug
7h
Impression:
Myasthenia gravis flare
Dysphagia
OMAR
Vomit episode 12-07
Conditions HIDE AND SKIN COLERER:
MG, on pyridostigmine
Dysphagia s/p cricopharyngeal myotomy, past h/o PEG
CAD, s/p CABGx3
HTN
HLD
PPM
IDDM on insulin pump
Hypothyroidism
TIA 2011
Vertigo
Scoliosis
R TKR
Appendectomy
Hernia repair
Remote h/o pipe smoking
Plan:
No change in respiratory status.
Remains on room air.
Continues to have strong cough effort.
NG tube in place. Patient for barium swallow tomorrow.
Myasthenia gravis flare
Per neurology
Steroids on hold
Mestinon via NG tube
Plasmapheresis 10/22
-
MIP monitored since 12-06 (-20 cwp)
12/08 (-30 CMH20)
12/09(-30)
12/10 (-30cc)
VC monitored since 12-05 (1.8L, 64% of predicted 2.8L)
VC 12/10/2023 (1.2L)
VC 12/11/2023 (1.5L)
-
Appears resp marcos stable at time of visit, clear MS, speaking in full sentences, no drooling
Keep asp precs
Recheck vital capacity and MIP today. Daily if patient allows
Seems to be stable to improving. Slow progress.
-
Hypoxemic respiratory failure: Possibly aspiration. Resolved.
Monitor leukocytosis and fevers.
Chest x-ray noted.
Would complete total 7 days of antibiotics. Has been transition to ceftriaxone.
Incentive spirometry encourage
-
Keep asp precs
Dobbhoff tube in place
Continue with swallowing evaluation. For modified barium swallow.
prn DNs for secretion clear
increase mobility as able. Physical therapy/Occupational Therapy.
Will follow.
Subjective Data
-
Date of Service:
Date of Service: December 13, 2023
Chief Complaint: Pulmonary Follow Up
Subjective:
No new pulmonary complaints
Remains off supplemental oxygen
Has a strong cough effort.
Review of Systems
Cardiopulmonary: Dyspnea (none at rest), Cough (n) and Chest Pain (n)
GI: Abdominal Pain (n)
Objective Data
Data Reviewed
Vital Signs / I&O / Oxygen:
Vital Signs
Temp Pulse Resp BP Pulse Ox
98.7 F 70 17 135/68 97
12/13/23 07:35 12/13/23 07:34 12/13/23 07:31 12/13/23 07:34 12/13/23 07:55
Intake and Output
12/12/23 12/13/23 12/14/23
06:59 06:59 06:59
Intake Total 970 / 970 1145 / 1145
Output Total 785 / 785 575 / 575
Balance 185 / 185 570 / 570
SaO2 97
Nasal Cannula flow liters per 2
minute
Physical Exam
General: Respiratory Distress (n)
HEENT: Normocephalic and Moist Mucous Membranes
Cardiovascular: Regular Rhythm, Murmur (n) and Peripheral Edema (n)
Respiratory: Rhonchi (trace), Non-Labored Respirations and Stridor (n)
GI: Soft, Non Distended and Non Tender
Neurology: Awake, AO x 3 and Other (weak)
Skin: Warm
Labs/Micro/Reports
Lab Data
12/13/23 04:37
12/13/23 04:37
[2023-12-13] MEDS: LOPRESSOR 25 MG PO (11:10)
[2023-12-13] MEDS: ROCEPHIN 1000 MG IV (11:11)
[2023-12-13] MEDS: STERILE WATER FOR INJECTION 10 ML IV (11:11)
--- NOTE | 2023-12-13 11:27 | PTCARENOTE ---
Pt currently receiving plasma pheresis via [facility]. Pt tolerating intervention. V/S stable.
[2023-12-13 11:46] LABS: Glucose - Point of Care 86 mg/dl (70-99)
--- NOTE | 2023-12-13 12:35 | CM ---
Patient with Dx acute hypoxemic resp failure, Acute myasthenia gravis flare, new onset atrial flutter. Room air. Plasmapheresis #3 of 5 today (every other day). Plan VSE tomorrow. Receiving IV Abx. Dobhoff tube - Jevity tube feeds. PT & OT
12/10; assist of 2, recommend skilled rehab.
Message from Dr Dougherty; the plan is to complete the next 2 plasmapheresis here (last one Sunday) and then poss d/c to SNF .
SNF referrals reviewed.
Spoke with J[facility]; clinical update provided. She will consider the patient for admission there and will know on 12/16 if they can accept and if a bed is available. Patient would need a permanent feeding tube in order for
her to accept.
Per response in [facility] from [facility]; the patient would need a LTC application.
[facility] declined due to no available bed.
Attempted to speak with patient who was unavailable.
Spoke with son Rl; son would like to wait and see if [facility] can accept next week, and hold off on doing LTC dottie for [facility]. He is aware that patient still has a Dobhoff tube and that the next VSE will be tomorrow.
Plan follow patient's tube feed needs and mobility needs.
Plan follow up with [facility] 12/16 for acceptance.
[2023-12-13] MEDS: NOVOLOG FLEXPEN 8 UNITS SC (12:44)
[2023-12-13] MEDS: NOVOLOG FLEXPEN SC (12:46)
--- NOTE | 2023-12-13 13:00 | W.PN.CARDCBS ---
Today's Communication / Plan
-
Plan for rate control strategy of atrial flutter and can be reassessed as an outpatient
Continue Eliquis anticoagulation as long as bleeding risk/platelets are not prohibitive
Outpatient cardiac follow-up will be arranged
Will sign off, please recall if needed
Impression / Plan
-
Primary Metalizer: Dr. Murali Wagner
Assessment:
Presentation with dysphagia, dobhoff placed
Acute hypoxemic respiratory failure
Cough
L PNA, concern for aspiration
OMAR, improved
Atrial flutter, new diagnosis, noted onset 12/09 in hospital
Recent diagnosis vertigo as OP, improved
CAD status post CABG in 2016
Brief postop A-fib
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
Chronic heart failure preserved EF
Sick sinus syndrome status post Medtronic pacemaker 2010
Hypertension
Hyperlipidemia
Type 1 diabetes, insulin-dependent
Hypothyroidism
Myasthenia gravis
History of TIA/CVA
Chronic venous insufficiency
Possible prior esophageal stricture treated at [facility]
ECHO 2019: EF 55 to 60%, MAC, mild MR, moderate TR, PAP 32 mmHg
ECHO 12/11/23: EF 53%, trace MR, mild to moderate TR, PAP 32 mmHg, trace MS
Plan:
Patient presented to [facility] with dysphagia with known myasthenia gravis and prior history of PEG tube.
-He remains with Dobhoff in place; plan for barium swallow tomorrow
-Pulmonary and neurology following: Receiving plasmapheresis today, treatment 3 of 5
He remains in asymptomatic rate controlled atrial flutter which is a new diagnosis this admission
-Plan is for rate control [device interrogation aflutter started 6:19PM on 12/09]
-Continue outpatient lopressor through tube (was on toprol 50mg daily as OP)
-[id number] score of 8 for age, h/o TIA/CVA, HTN, DM2, CHF, vascular disease. Was on aspirin and Plavix as an outpatient given history of TIA/CVA, remote as well as history of CABG in 2017. transitioned to eliquis alone as of 12/11/23.
-Continue Eliquis anticoagulation if platelet count/bleeding risk is not prohibitive
History of sick sinus syndrome status post Medtronic pacemaker in 2010
Chronic heart failure with preserved ejection fraction
-proBNP 1210.
-Oxygen saturations good off of supplemental oxygen
-Not requiring daily diuretics. Was on as needed Lasix as an outpatient
Will sign off, recall if needed
Progress Note - Metalizer
Subjective
Date of Service: December 13, 2023
Seen and examined while getting plasmapheresis. Offers no complaints
Objective
Labs:
12/13/23 04:37
12/13/23 04:37
Labs
Hgb 13.9 g/dL (13.0-18.0) 12/13/23 04:37
Hct 41.9 % (39.0-52.0) 12/13/23 04:37
Plt Count 95 10^3/uL (130-400) L D 12/13/23 04:37
Sodium 146 mmol/L (135-145) H 12/13/23 04:37
Potassium 3.8 mmol/L (3.5-5.1) 12/13/23 04:37
BUN 40 mg/dl (9-20) H 12/13/23 04:37
Creatinine 1.0 mg/dL (0.7-1.3) 12/13/23 04:37
Glucose 89 mg/dl (70-99) 12/13/23 04:37
Vital Signs and I&O:
Vital Signs
Temp Pulse Resp BP Pulse Ox
98.3 F 70 17 118/54 97
12/13/23 11:12 12/13/23 11:10 12/13/23 07:31 12/13/23 11:10 12/13/23 07:55
Vital Signs
Temp Pulse Resp BP Pulse Ox
98.3 F 70 17 118/54 97
12/13/23 11:12 12/13/23 11:10 12/13/23 07:31 12/13/23 11:10 12/13/23 07:55
Intake & Output
12/11/23 12/12/23 12/13/23 12/14/23
06:59 06:59 06:59 06:59
Intake Total 2350 / 2350 970 / 970 1145 / 1145
Output Total 1050 / 1050 785 / 785 575 / 575
Balance 1300 / 1300 185 / 185 570 / 570
Physical Exam
Physical Exam
General: Frail 78-year-old gentleman. Room air. Positive -off
Heart: Irregularly irregular. Positive S1-S2. 1/6 SM
Lungs: Bronchovesicular breath sounds with scattered rhonchi.
Abd: Positive BS, NT/ND, neg rebound/rigidity/guarding
Ext: No edema
--- NOTE | 2023-12-13 14:30 | PTCARENOTE ---
Pt concluded plasmapheresis. Pts BP at 13:30 reading at 86/39(53), HR 73. pt awake, alert, and talking. not symptomatic. aware.
[2023-12-13] MEDS: NSS 250 IV (15:25)
--- NOTE | 2023-12-13 16:00 | PTCARENOTE ---
Pt remains hypotensive, asymptomatic. Dr. Connelly ordered 250ml bolus and IMU LOC.
[2023-12-13 17:54] LABS: Glucose - Point of Care 148 mg/dl (70-99)
[2023-12-13] MEDS: LOPRESSOR PO (21:22)
[2023-12-13] MEDS: XALATAN OPHTHALMIC SOLUTION 1 DROP BOTH EYES (22:41)
[2023-12-14] VITALS (16 sets, daily range): BP systolic 90–123; BP diastolic 40–66; PULSE 73–74; O2SAT 97; BMI 24.9
[2023-12-14 00:23] LABS: Glucose - Point of Care 150 mg/dl (70-99)
[2023-12-14] MEDS: NOVOLOG FLEXPEN 10 UNITS SC ×2 (00:25→06:16)
[2023-12-14] MEDS: NOVOLOG FLEXPEN-MODERATE RESISTANCE 1 UNITS SC (00:27)
[2023-12-14 04:35] LABS: Hematocrit 32.8 % (39.0-52.0); Hemoglobin 11.3 g/dL (13.0-18.0); Mean Corp Hgb Conc. 34.5 g/dL (33.0-37.0); Mean Corpuscular Hgb 31.2 pg (27.0-31.0); Mean Corpuscular Volume 90.6 fL (80.0-94.0); Mean Platelet Volume 13.6 fL (7.4-10.4); Platelet Count 86 10^3/uL (130-400); Red Blood Cell Count 3.62 10^6/uL (4.70-6.10); Red Cell Dist. Width 14.3 % (11.5-14.5); White Blood Cell Count 12.4 10^3/uL (4.8-10.8)
[2023-12-14 05:15] LABS: Blood Urea Nitrogen 52 mg/dl (9-20); Calcium 8.2 mg/dl (8.4-10.2); Carbon Dioxide 26 mmol/L (22-30); Chloride 112 mmol/L (98-107); Estimated Creatinine Clearance 43 ml/min; Glucose 107 mg/dl (70-99); Magnesium 2.4 mg/dl (1.6-2.3); Potassium 4.2 mmol/L (3.5-5.1); Sodium 142 mmol/L (135-145); eGFR 46.77
[2023-12-14] MEDS: NOVOLOG FLEXPEN-MODERATE RESISTANCE SC ×3 (06:15→17:38)
[2023-12-14] MEDS: SYNTHROID 112 MCG TUBE (06:20)
[2023-12-14 06:26] LABS: Glucose - Point of Care 128 mg/dl (70-99)
--- NOTE | 2023-12-14 07:43 | PN.DE.MGMTRT ---
Insulin Management
- -
12/14/2023: Diabetes Management F/U:
Patient admitted myasthenia gravis flare manifesting with dysphagia.
Pt states that he has had difficulty with both solid and liquid food as well as his oral medications.
PMH includes: HTN, HLD, CAD, CHF, hypothyroidism, antibody positive myasthenia gravis, IDDM, A1C 7.3%, was 7.1% on 06/06/23.
Was using [employer] 780G pump with NovoLog insulin, Quick Sets and CGM prior to admission, pump is at the bedside with supplies. He follows with Dr. Subramanian and sees Levar Alvarez.
He was noted for elevated glucose levels on initiation of IV steroids and was started on insulin drip-->transitioned off to basal insulin with corrective.
Patient is awake, alert and oriented, sitting up in bed, offers no complaints. States he just had a video swallow exam and passed, so he is cleared to start a diet.
Hs is feeling stronger everyday and would like to resume his insulin pump but opted for Sunday when he is sure that his swallowing is at baseline..
Noted for OMAR, Cr 0.9-->1.0-->1.5 today. His TF are currently on hold with plans to start a diet.
Glucose remains stable, FBG 107 this AM, all other blood sugars in range of 86 to 150.
Of note pt received 25 units of Lantus and 10 units of NovoLog this AM while TF were on hold, concerned for hypoglycemia.
Will reduce Lantus to 15 units BID and change NovoLog to AC 8 units with low corrective insulin.
Discussed diabetes management plan with patient and nurse.
Diabetes History
- -
Type of Diabetes: 1
Pre-Admission Diabetes Regimen
12/14/23
04:05
Creatinine 1.5 H
Lab Results
Hemoglobin A1c 7.3 % (4.0-5.6) H 12/07/23 04:54
Insulin Pump Settings
IP Diabetes Regimen
12/13/23 12/13/23 12/14/23
11:34 17:37 00:11
Glucose
POC Glucose 86 148 H 150 H
12/14/23 12/14/23
04:05 06:14
Glucose 107 H
POC Glucose 128 H
Patient Education
[2023-12-14] MEDS: NSS 1000 IV ×2 (07:50→16:33)
[2023-12-14] MEDS: LIPITOR 80 MG TUBE (07:55)
[2023-12-14] MEDS: MESTINON 60 MG TUBE ×3 (07:56→20:47)
[2023-12-14] MEDS: ZESTRIL TUBE (07:57)
[2023-12-14] MEDS: LOPRESSOR PO (07:57)
[2023-12-14] MEDS: NORVASC TUBE (07:57)
[2023-12-14] MEDS: LANTUS 0.25 UNITS SC (07:58)
[2023-12-14] MEDS: ELIQUIS 5 MG PO (08:01)
--- NOTE | 2023-12-14 08:02 | W.PN.HOSP.TC ---
Today's Communication/Plan
-
completed 3 of 5 days of plasmapheresis
VSE today
NSS IVF at 125ml/hr for now
follow creat
Assessment / Plan
Assessment / Plan
pt is an 78 year old male
'dry heaves'--think irritation from feeding tube as opposed to true nausea--will give hurricane spray--improved
acute hypoxemic resp failure--think due to aspiration--on 2L O2--apprec resp therapy--wean O2 as able--CXR with retrocardiac atelectasis vs PNA (more likely as aspirated 12/07)--cont PRN nebs--was on rocephin/flagyl (flagyl may contribute to
n/v)--changed to zosyn (no further n/v and tolerating tube feeds)--recheck CXR, may be able to stop ABX?--still has not passed swallow eval--might need exterminator termite feeding tube if no improvement--VSE 12/13
OMAR--creat went from 0.9 to 2.9, then back to normal now 12/13 creat 1.5 again with relative hypotension--will give NSS 125ml/hr---holding lasix/lisinopril/metoprolol--follow
thrombocytopenia -- was on Lovenox, switched to Eliquis, HIT assay pending--could also be piperacillin part of zosyn, improved with stopping zosyn and changing to rocephin
Diabetes mellitus type 2--on insulin pump which will hold because of his dysphagia and n.p.o. status--sugars ran very high with addition of steroids--asked DM INFORMATION CONSULTANT for assistance but needed insulin drip for better sugar control --off insulin drip as
of 12/07 and started SQ lantus and mod SSI, will need adjustments
Acute myasthenia gravis flare with the dysphagia and occasional diplopia--apprec neuro--seen by speech--not safe for PO intake, only ice chips--asked GI to place feeding tube (Dobhoff)--pulled out last night, replaced this AM-- plasmapheresis
(started 12/08, next treatment 12/10) as per neuro--VSE--still has not passed swallow eval--might need fdc feeding tube if no improvement--VSE 12/13
diarrhea--likely from tube feeds--bowel regimen stopped, possibly contributed to OMAR and hypotension?--cont IVF
CAD without any chest pain--continue with his home medication statins--On dual anti platelet agents as well as statins--changed meds to tube
Essential Hypertension--continue with his home medications as able
Hyperlipidemia--continue with his medication
constipation-- bowel regimen d/c'd--moving bowels
Full code
Anticipated Discharge: > 48 hours
Subjective/Interval History
-
Date of Service: December 14, 2023
pt feels stronger today
Objective Data
-
Labs:
Laboratory Results
12/14/23
04:05
WBC 12.4 H
Hgb 11.3 L
Hct 32.8 L
Plt Count 86 L
Sodium 142
Potassium 4.2
Chloride 112 H
Carbon Dioxide 26
BUN 52 H
Creatinine 1.5 H
Glucose 107 H
Calcium 8.2 L
Vital Signs:
max temp for 24 hours
12/14/23
03:26
Temp 99.2 F
Vital Signs
Temp Pulse Resp BP Pulse Ox
99.2 F 70 16 99/40 95
12/14/23 03:26 12/14/23 06:00 12/14/23 06:00 12/14/23 06:00 12/13/23 21:46
I&O
12/13/23 12/14/23 12/15/23
06:59 06:59 06:59
Intake Total 1145 / 1145
Output Total 575 / 575 240 / 240
Balance 570 / 570 -240 / -240
Review of Systems
-
All other systems: Reviewed and negative
Physical Exam
-
General: Well Developed, Well Nourished and No Apparent Distress
HEENT: Normocephalic, Atraumatic and Other (Dobhoff)
Respiratory: Clear to Auscultation; Negative Wheezes or Rhonchi
Cardiac: Regular Rhythm and S1/S2; Negative Murmur
GI: Soft, Nontender, Nondistended and Normal Bowel Sounds
Musculoskeletal: No Clubbing and No Cyanosis; Negative No Edema (trace edema bilateral legs)
Skin: Warm
Neuro: Awake
Psych: Calm
--- NOTE | 2023-12-14 09:42 | W.PN.PUL3 ---
Today's Communication / Plan
-
Cont. With MS Flare RX, objectively improving
Monitor resp. status clinically
Complete total 7d of ABx
sing off.
Assessment
-
Assessment:
Mr Shree Thomas is an 78/M adm 12-05 with dysphagia on DOA in setting of known h/o MG. Follows with Neurology for Ab positive MG, had flare of MG in Aug, received IVIG and CS with improvement, did not require PEG, post d/c started on
vygart/efgartidomod alpha, unfortunately developed skin rash, currently awaiting for approval of rozanolixizumab/rystiggo, continues on chronic mestinon. Started IVIG and IV MP pulse upon adm. Had to received DHT due to poor performance on bedside
speech evaluation 12-06 (known h/o variable degrees of dysphagia on multiple prior VSEs). VC monitored since 12-05 (1.8L, 64% of predicted 2.8L), MIP monitored since 12-06 (-20 cwp). Today VC 1.4L and MIP -32 cwp). Noted VC 2.27L and NIF -30 in Aug
7h
Impression:
Myasthenia gravis flare
Dysphagia
OMAR
Vomit episode 12-07
Conditions DECATIZER:
MG, on pyridostigmine
Dysphagia s/p cricopharyngeal myotomy, past h/o PEG
CAD, s/p CABGx3
HTN
HLD
PPM
IDDM on insulin pump
Hypothyroidism
TIA 2011
Vertigo
Scoliosis
R TKR
Appendectomy
Hernia repair
Remote h/o pipe smoking
Plan:
No change in respiratory status.
Remains on room air.
Continues to have strong cough effort.
NG tube in place. Patient for barium swallow tomorrow.
Myasthenia gravis flare
Per neurology
Steroids on hold
Mestinon via NG tube
Plasmapheresis 10/22
-
MIP monitored since 12-06 (-20 cwp)
12/08 (-30 CMH20)
12/09(-30)
12/10 (-30)
12/12 (-50)
VC monitored since 12-05 (1.8L, 64% of predicted 2.8L)
VC 12/10/2023 (1.2L)
VC 12/11/2023 (1.5L)
VC 12/13/2023 (1.8L)
Overall Respiratory muscle Strength improving.
will follow clinically and stop monitoring VC and MIP.
-
Has strong cough effort. Not drooling
Keep asp precs
continues to improve day by day.
-
Hypoxemic respiratory failure: Possibly aspiration. Resolved.
Monitor leukocytosis and fevers.
Chest x-ray noted.
Would complete total 7 days of antibiotics. Has been transition to ceftriaxone.
Incentive spirometry encourage
-
Keep asp precs
Dobbhoff tube in place
Continue with swallowing evaluation. For modified barium swallow.
prn DNs for secretion clear
increase mobility as able. Physical therapy/Occupational Therapy.
No additional recommendations from the pulmonary perspective.
Please call back if worsening pulmonary symptoms.
sign off.
Subjective Data
-
Date of Service:
Date of Service: December 14, 2023
Chief Complaint: Pulmonary Follow Up (Myasthenia gravis flare)
Subjective:
No overnight events
Remains off supplemental oxygen
Continues to have intermittent coughing.
Review of Systems
General: Fever (n)
Cardiopulmonary: Dyspnea (none at rest)
GI: Abdominal Pain (n) and Nausea (n)
Objective Data
Data Reviewed
Vital Signs / I&O / Oxygen:
Vital Signs
Temp Pulse Resp BP Pulse Ox
98.6 F 70 16 95/40 95
12/14/23 07:10 12/14/23 06:00 12/14/23 06:00 12/14/23 07:57 12/13/23 21:46
Intake and Output
12/13/23 12/14/23 12/15/23
06:59 06:59 06:59
Intake Total 1145 / 1145
Output Total 575 / 575 240 / 240
Balance 570 / 570 -240 / -240
SaO2 95
Nasal Cannula flow liters per 2
minute
Physical Exam
General: Respiratory Distress (n)
HEENT: Normocephalic and Moist Mucous Membranes
Cardiovascular: Regular Rhythm, Murmur (n) and Peripheral Edema (n)
Respiratory: Rhonchi (trace), Non-Labored Respirations and Stridor (n)
GI: Soft, Non Distended and Non Tender
Neurology: Awake, AO x 3 and Other (weak)
Skin: Warm
Labs/Micro/Reports
Lab Data
12/14/23 04:05
12/14/23 04:05
[2023-12-14] MEDS: ROCEPHIN 1000 MG IV (11:05)
[2023-12-14] MEDS: STERILE WATER FOR INJECTION 10 ML IV (11:06)
[2023-12-14 12:50] LABS: Glucose - Point of Care 70 mg/dl (70-99)
[2023-12-14 13:59] LABS: Glucose - Point of Care 51 mg/dl (70-99)
--- NOTE | 2023-12-14 14:01 | PTCARENOTE ---
rounding on pt awaiting tray , states he feels low accy=u check 51 given OJ and meal came, now eating states he feels better and is not having difficulty eating or swallowing. Will recheck glu after meal
--- NOTE | 2023-12-14 14:19 | PTOTSP ---
Video Swallow Study
Summary: Patient presents with WFL oral and moderate pharyngeal stages of swallowing. Etiology of swallowing is felt to be due to myasthenia gravis flare. Improvement noted compared to last known video swallow study this admission 12/10/2023.
There were episodes of deep laryngeal penetration with thin liquids. No aspiration occurred. Pharyngeal residue was at most moderate and greatest in valleculae with solids and decreased to mild amounts with a cued thin liquid wash. Please see
patient care note for full details of penetration and swallowing physiology.
Recommend:
1. IDDSI Level 5 Minced and Moist, IDDSI Level 0 Thin Liquids
2. Medications - crushed in thin puree (applesauce)
3. Strategies: small single sips via cup, small bites, intermittent cough/swallow to clear larynx, alternate sips/bites (to assist with clearing pharyngeal residue with solids), no straws, small frequent meals, stop if fatigued, oral care 3-5x daily
4. Dysphagia therapy warranted for education, instruction in compensations, and therapeutic reassessment
5. Monitor clinical status on oral diet and modify as appropriate if any changes to respiratory status noted.
[2023-12-14 15:20] LABS: Glucose - Point of Care 123 mg/dl (70-99)
[2023-12-14] MEDS: NOVOLOG FLEXPEN 8 UNITS SC (17:39)
[2023-12-14 17:44] LABS: Glucose - Point of Care 143 mg/dl (70-99)
--- NOTE | 2023-12-14 18:00 | CM ---
Patient with Dx acute hypoxemic resp failure, Acute myasthenia gravis flare, new onset atrial flutter. Room air. Next Plasmapheresis 12/14 (#4 of 5) VSE today - dysphagia diet. Receiving IV Abx. PT rec SNF vs home PT. OT rec HH.
Plan follow up with Sarah [facility] Mon 12/16 for acceptance.
[2023-12-14] MEDS: ELIQUIS 2.5 MG TUBE (20:47)
[2023-12-14] MEDS: XALATAN OPHTHALMIC SOLUTION 1 DROP BOTH EYES (20:47)
[2023-12-14] MEDS: LANTUS 0.149999999999999994 UNITS SC (21:51)
[2023-12-14 21:57] LABS: Glucose - Point of Care 102 mg/dl (70-99)
[2023-12-15] VITALS (26 sets, daily range): BP systolic 91–124; BP diastolic 41–99; BMI 26.2
--- NOTE | 2023-12-15 00:11 | PTCARENOTE ---
Pt received at beginning of shift resting in bed. AAOx3. Denies pain or discomfort. VSS. Afebrile. 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 Has had 2 episodes loose bm. Cleansed and changed. Sacrum and groin area reddened. Calazime cream applied. Using urinal at
bedside. No issues swallowing HS med crushed in applesauce. IVF's off when pt received at beginning of shift. Battery depleted, plugged in. IVF's infusing as ordered but well behind in time. No change from previous assessment. Call meza remains
within reach. Will continue to monitor.
[2023-12-15] MEDS: NSS IV (00:18)
--- NOTE | 2023-12-15 02:20 | PTCARENOTE ---
Pt felt his blood sugar was low after waking up. Accucheck 87. Pt given OJ to drink at his leisure. Will continue to monitor.
[2023-12-15 02:29] LABS: Glucose - Point of Care 87 mg/dl (70-99)
[2023-12-15] MEDS: NSS 1000 IV (04:13)
[2023-12-15] MEDS: SYNTHROID 112 MCG TUBE (05:02)
[2023-12-15 07:30] LABS: Glucose - Point of Care 77 mg/dl (70-99)
--- NOTE | 2023-12-15 08:02 | W.PN.HOSP.TC ---
Today's Communication/Plan
-
today is day 4 of plasmapheresis
Assessment / Plan
Assessment / Plan
pt is an 78 year old male
'dry heaves'--think irritation from feeding tube as opposed to true nausea--will give hurricane spray--resolved
acute hypoxemic resp failure--think due to aspiration--on 2L O2--apprec resp therapy--wean O2 as able--CXR with retrocardiac atelectasis vs PNA (more likely as aspirated 12/07)--cont PRN nebs--was on rocephin/flagyl (flagyl may contribute to
n/v)--changed to zosyn (no further n/v and tolerating tube feeds)--recheck CXR, may be able to stop ABX?--passed swallow eval
OMAR--creat went from 0.9 to 2.9, then back to normal now 12/13 creat 1.5 again with relative hypotension--will give NSS 125ml/hr---holding lasix/lisinopril/metoprolol--follow
thrombocytopenia -- was on Lovenox, switched to Eliquis, HIT assay pending--could also be piperacillin part of zosyn, improved with stopping zosyn and changing to rocephin--stopping ABX, completed 7 day course
Diabetes mellitus type 2--on insulin pump which will hold because of his dysphagia and n.p.o. status--sugars ran very high with addition of steroids--asked DM PRINTED CIRCUIT DESIGNER for assistance but needed insulin drip for better sugar control --off insulin drip as
of 12/07 and started SQ lantus and mod SSI, will need adjustments
Acute myasthenia gravis flare with the dysphagia and occasional diplopia--apprec neuro--seen by speech--not safe for PO intake, only ice chips--asked GI to place feeding tube (Dobhoff)--pulled out last night, replaced this AM-- plasmapheresis
(started 12/08, next treatment 12/10) as per neuro--VSE--passed swallow eval
diarrhea--likely from tube feeds--bowel regimen stopped, possibly contributed to OMAR and hypotension?--cont IVF
CAD without any chest pain--continue with his home medication statins--On dual anti platelet agents as well as statins
Essential Hypertension--continue with his home medications as able
Hyperlipidemia--continue with his medication
constipation-- bowel regimen d/c'd--moving bowels
Full code
Anticipated Discharge: > 48 hours
Subjective/Interval History
-
Date of Service: December 15, 2023
pt eating breakfast
Objective Data
-
Labs:
Laboratory Results
12/15/23
07:50
WBC Pending
Hgb Pending
Hct Pending
Plt Count Pending
Sodium Pending
Potassium Pending
Chloride Pending
Carbon Dioxide Pending
BUN Pending
Creatinine Pending
Glucose Pending
Calcium Pending
Vital Signs:
max temp for 24 hours
12/14/23
23:43
Temp 98.2 F
Vital Signs
Temp Pulse Resp BP Pulse Ox
98.0 F 70 14 118/47 95
12/15/23 03:24 12/15/23 06:00 12/15/23 06:00 12/15/23 06:00 12/15/23 04:00
I&O
12/14/23 12/15/23 12/16/23
06:59 06:59 06:59
Intake Total 3150 / 3150
Output Total 240 / 240 870 / 870
Balance -240 / -240 2280 / 2280
Review of Systems
-
All other systems: Reviewed and negative
Physical Exam
-
General: Well Developed, Well Nourished and No Apparent Distress
HEENT: Normocephalic, Atraumatic and Other (Dobhoff out--Off O2)
Respiratory: Clear to Auscultation; Negative Wheezes or Rhonchi
Cardiac: Regular Rhythm and S1/S2; Negative Murmur
GI: Soft, Nontender, Nondistended and Normal Bowel Sounds
Musculoskeletal: No Clubbing, No Cyanosis and No Edema
Neuro: Awake and Alert
--- NOTE | 2023-12-15 08:04 | W.PN.NEURO.1 ---
Today's Communication / Plan
-
-4/5 Plasmapharesis today, plan for 5/5 total to help prevent recurrence of symptoms
-Follow cell counts
-Aspiration precautions, knows precautions for modified diet and dysphagia
-Speech therapy input appreciated, VSE reviewed
-PO mestinon
Neuro Assessment/Plan
Plan
-switched from IVIG to PLEX today given OMAR. Today was day #1 of PLEX, given by [place], and his dysarthria has now resolved. Dobhoff still in place for dysphagia.
-finished course of steroids
-NIF, VC testing BID, pulm following; says he was SOB this AM but this has now resolved
-Neurological checks per unit guidelines.
-PT/OT/ST evaluations.
-Aspiration precautions. Has Dobhoff in place now.
-When able to tolerate oral medications, resume pyridostigmine 60mg TID.
-DVT prophylaxis.
-Will follow.
Critical care time 35 mins
Subjective/Objective
Subjective Data
Date of Service: December 15, 2023
Was able to get some PO modified diet with findings on video swallow, feeling pretty well, feels speech pretty normal, no dyspnea
Objective Data
Vital Signs
Temp Pulse Resp BP Pulse Ox
98.0 F 70 14 118/47 95
12/15/23 03:24 12/15/23 06:00 12/15/23 06:00 12/15/23 06:00 12/15/23 04:00
Sodium 142 mmol/L (135-145) 12/14/23 04:05
Potassium 4.2 mmol/L (3.5-5.1) 12/14/23 04:05
BUN 52 mg/dl (9-20) H 12/14/23 04:05
Glucose 107 mg/dl (70-99) H 12/14/23 04:05
Calcium 8.2 mg/dl (8.4-10.2) L 12/14/23 04:05
Gqc-Q-Waguvqozdxo Pept 1210 pg/ml 12/11/23 05:15
Patient Allergies
efgartigimod mary-fcab [From Vyv[facility]] Allergy (Verified 12/06/23 10:53)
Rash
Review of Systems
-
History Source: Patient
All other systems: Reviewed and negative
Constitutional: No Symptoms
EENT: No Symptoms Reported
Respiratory: No Symptoms
Cardiac: No Symptoms
Abdomen/GI: No Symptoms
Genitourinary: No Symptoms
Musculoskeletal: No Symptoms
Skin: No Symptoms
Neuro: No Symptoms
Endocrine: No Symptoms
Hematologic / Lymphatic: No Symptoms
Allergy / Immunology: No Symptoms
Physical Exam
-
General: Well Developed and Well Nourished
Eyes: No Ptosis
HEENT: Normocephalic
Respiratory: Clear to Auscultation
Cardiac: Regular Rhythm
GI: Normal Bowel Sounds
Skin: Unremarkable
Extremities: No Clubbing
Psych: Unremarkable
Extended Neurological Exam
Mood & Affect: Mood Unremarkable and Affect Unremarkable
Attention Span & Concentration: Awake, Alert and Interactive
Memory: Unremarkable
Tremor: Hand Tremor Absent
Involuntary Movement: None
Speech: Quality Unremarkable and Quantity Unremarkable; Negative Expressive Aphasia, Receptive Aphasia or Dysarthric
Cranial Nerve II: Left Eye: Pupillary Reactivity Unremarkable and Pupillary Size Unremarkable
Cranial Nerve II: Right Eye: Pupillary Reactivity Unremarkable and Pupillary Size Unremarkable
Cranial Nerves III, IV, : Extraocular Movement: Extraocular Movement Full in all Directions
Muscle Strength, Overall: Full Throughout
Pronator Drift: No Drift in Upper Extremities
Data Reviewed
-
Labs: Report Reviewed
[2023-12-15] MEDS: NOVOLOG FLEXPEN-MODERATE RESISTANCE SC ×3 (08:09→16:33)
[2023-12-15] MEDS: NOVOLOG FLEXPEN 8 UNITS SC (08:10)
[2023-12-15] MEDS: LIPITOR 80 MG TUBE (08:12)
[2023-12-15] MEDS: LANTUS 0.149999999999999994 UNITS SC (08:19)
[2023-12-15] MEDS: MESTINON TUBE (08:22)
[2023-12-15] MEDS: ELIQUIS TUBE (08:22)
[2023-12-15] MEDS: MESTINON 60 MG PO ×3 (08:30→20:44)
[2023-12-15] MEDS: ELIQUIS 2.5 MG PO ×2 (08:30→20:44)
[2023-12-15 08:39] LABS: Hematocrit 30.7 % (39.0-52.0); Hemoglobin 10.2 g/dL (13.0-18.0); Mean Corp Hgb Conc. 33.2 g/dL (33.0-37.0); Mean Corpuscular Hgb 30.3 pg (27.0-31.0); Mean Corpuscular Volume 91.1 fL (80.0-94.0); Mean Platelet Volume 12.9 fL (7.4-10.4); Platelet Count 120 10^3/uL (130-400); Red Blood Cell Count 3.37 10^6/uL (4.70-6.10); Red Cell Dist. Width 14.4 % (11.5-14.5); White Blood Cell Count 11.4 10^3/uL (4.8-10.8)
[2023-12-15] MEDS: CALCIUM GLUCONATE 10% INJECTION 289.5 MG IV (08:51)
[2023-12-15] MEDS: CALCIUM GLUCONATE 10% INJECTION 289.5 GRAMS IV (08:51)
[2023-12-15 09:00] LABS: Blood Urea Nitrogen 44 mg/dl (9-20); Calcium 7.3 mg/dl (8.4-10.2); Carbon Dioxide 28 mmol/L (22-30); Chloride 106 mmol/L (98-107); Estimated Creatinine Clearance 54 ml/min; Glucose 107 mg/dl (70-99); Potassium 3.8 mmol/L (3.5-5.1); Sodium 136 mmol/L (135-145); eGFR > 60.00
--- NOTE | 2023-12-15 09:35 | PTCARENOTE ---
Pt now having [facility]mapheresis with [facility]
[2023-12-15 12:14] LABS: Glucose - Point of Care 58 mg/dl (70-99)
[2023-12-15] MEDS: NOVOLOG FLEXPEN SC ×2 (12:37→16:33)
[2023-12-15 13:25] LABS: Glucose - Point of Care 98 mg/dl (70-99)
[2023-12-15 16:44] LABS: Glucose - Point of Care 79 mg/dl (70-99)
[2023-12-15] MEDS: XALATAN OPHTHALMIC SOLUTION 1 DROP BOTH EYES (20:44)
[2023-12-15] MEDS: LANTUS 0.0800000000000000017 UNITS SC (22:10)
[2023-12-15 22:16] LABS: Glucose - Point of Care 138 mg/dl (70-99)
[2023-12-16] VITALS (14 sets, daily range): BP systolic 101–144; BP diastolic 49–69; PULSE 72; BMI 26.9
[2023-12-16 03:38] LABS: Glucose - Point of Care 67 mg/dl (70-99)
[2023-12-16 03:58] LABS: Glucose - Point of Care 71 mg/dl (70-99)
[2023-12-16 05:25] LABS: Hematocrit 27.1 % (39.0-52.0); Mean Corp Hgb Conc. 33.2 g/dL (33.0-37.0); Mean Corpuscular Hgb 30.3 pg (27.0-31.0); Mean Corpuscular Volume 91.2 fL (80.0-94.0); Mean Platelet Volume 12.9 fL (7.4-10.4); Platelet Count 105 10^3/uL (130-400); Red Blood Cell Count 2.97 10^6/uL (4.70-6.10); Red Cell Dist. Width 14.1 % (11.5-14.5); White Blood Cell Count 9.1 10^3/uL (4.8-10.8)
[2023-12-16 05:51] LABS: Glucose - Point of Care 90 mg/dl (70-99)
[2023-12-16 05:54] LABS: ALT (SGPT) 20 U/L (0-50); AST (SGOT) 30 U/L (17-59); Albumin 2.9 g/dl (3.5-5.0); Alkaline Phosphatase 25 U/L (38-126); Blood Urea Nitrogen 38 mg/dl (9-20); Calcium 7.3 mg/dl (8.4-10.2); Carbon Dioxide 28 mmol/L (22-30); Chloride 103 mmol/L (98-107); Estimated Creatinine Clearance 65 ml/min; Glucose 89 mg/dl (70-99); Magnesium 2.1 mg/dl (1.6-2.3); Potassium 3.9 mmol/L (3.5-5.1); Sodium 133 mmol/L (135-145); Total Bilirubin 1.4 mg/dl (0.2-1.3); Total Protein 4.1 g/dl (6.3-8.2); eGFR > 60.00
--- NOTE | 2023-12-16 06:37 | PTCARENOTE ---
HS accucheck 138. 0300 accucheck 67. Received 4oz OJ with repeat accucheck 71. Per protocol accucheck at 0545 90. Next recheck at 0745. VSS. Afebrile overnight. DUMPMAN on CM. Not much sleep overnight. No change from previous assessment. Call meza
remains within reach.
[2023-12-16 08:01] LABS: Glucose - Point of Care 69 mg/dl (70-99)
[2023-12-16] MEDS: NOVOLOG FLEXPEN SC (08:31)
[2023-12-16] MEDS: LIPITOR 80 MG TUBE (08:32)
[2023-12-16] MEDS: ELIQUIS 2.5 MG PO ×2 (08:32→20:38)
[2023-12-16] MEDS: NOVOLOG FLEXPEN-MODERATE RESISTANCE SC (08:32)
[2023-12-16] MEDS: SYNTHROID 112 MCG TUBE (08:32)
[2023-12-16] MEDS: MESTINON 60 MG PO ×3 (08:32→22:35)
--- NOTE | 2023-12-16 08:37 | W.PN.HOSP.TC ---
Today's Communication/Plan
-
hopeful d/c after last plasmapheresis
PT/OT to eval home vs SNF
Assessment / Plan
Assessment / Plan
pt is an 78 year old male
'dry heaves'--think irritation from feeding tube as opposed to true nausea--will give hurricane spray--resolved
acute hypoxemic resp failure--think due to aspiration--room air--apprec resp therapy--wean O2 as able--CXR with retrocardiac atelectasis vs PNA (more likely as aspirated 12/07)--cont PRN nebs--was on rocephin/flagyl (flagyl may contribute to
n/v)--changed to zosyn (no further n/v and tolerating tube feeds)--recheck CXR ok stop ABX--passed swallow eval
OMAR--creat went from 0.9 to 2.9, then back to normal now 12/13 creat 1.5 again with relative hypotension--will give NSS 125ml/hr---holding lasix/lisinopril/metoprolol--follow--resolved
thrombocytopenia -- was on Lovenox, switched to Eliquis, HIT assay pending--could also be piperacillin part of zosyn, improved with stopping zosyn and changing to rocephin--stopped ABX, completed 7 day course
Diabetes mellitus type 2--on insulin pump which will hold because of his dysphagia and n.p.o. status--sugars ran very high with addition of steroids--asked DM FLIGHT MECHANIC for assistance but needed insulin drip for better sugar control --off insulin drip as
of 12/07 and started SQ lantus and mod SSI, adjustments being made--FLIGHT MECHANIC to be back Sunday to restart insulin pump
Acute myasthenia gravis flare with the dysphagia and occasional diplopia--apprec neuro--seen by speech--- plasmapheresis (12/16 will be treatment 5 of 5) as per neuro--VSE--passed swallow eval
diarrhea--likely from tube feeds--bowel regimen stopped
CAD without any chest pain--continue with his home medication statins--On dual anti platelet agents as well as statins
Essential Hypertension--continue with his home medications as able
Hyperlipidemia--continue with his medication
constipation-- bowel regimen d/c'd--moving bowels
Full code
Anticipated Discharge: 24 - 48 hours
Subjective/Interval History
-
Date of Service: December 16, 2023
pt doing very well--frustrated about his sugars
Objective Data
-
Labs:
Laboratory Results
12/16/23
04:39
WBC 9.1
Hgb 9.0 L
Hct 27.1 L
Plt Count 105 L
Sodium 133 L
Potassium 3.9
Chloride 103
Carbon Dioxide 28
BUN 38 H
Creatinine 1.0
Glucose 89
Calcium 7.3 L
Total Bilirubin 1.4 H
AST 30
ALT 20
Alkaline Phosphatase 25 L
Vital Signs:
max temp for 24 hours
12/15/23
19:15
Temp 98.6 F
Vital Signs
Temp Pulse Resp BP Pulse Ox
98.4 F 70 17 101/52 97
12/16/23 03:16 12/16/23 06:01 12/16/23 06:01 12/16/23 06:01 12/16/23 04:00
I&O
12/15/23 12/16/23 12/17/23
06:59 06:59 06:59
Intake Total 3150 / 3150 720 / 720
Output Total 870 / 870 825 / 825
Balance 2280 / 2280 -105 / -105
Review of Systems
-
All other systems: Reviewed and negative
Physical Exam
-
General: Well Developed, Well Nourished and No Apparent Distress
HEENT: Normocephalic and Atraumatic
Respiratory: Clear to Auscultation; Negative Wheezes or Rhonchi
Cardiac: Regular Rhythm and S1/S2; Negative Murmur
GI: Soft, Nontender, Nondistended and Normal Bowel Sounds
Musculoskeletal: No Clubbing, No Cyanosis and No Edema
Neuro: Awake and Alert
[2023-12-16 09:03] LABS: Glucose - Point of Care 127 mg/dl (70-99)
--- NOTE | 2023-12-16 09:15 | PTCARENOTE ---
Patient received from net software developer. Patient resting comfortably in bed. AAO, VSS. No events noted overnight. No complaints of pain at this time. Currently on Room Air. Patient still with some loose stools but decreasing in frequency. OOB to
chair. Call meza in reach.
[2023-12-16 11:26] LABS: Glucose - Point of Care 190 mg/dl (70-99)
[2023-12-16] MEDS: NOVOLOG FLEXPEN 3 UNITS SC ×2 (12:20→16:40)
[2023-12-16] MEDS: NOVOLOG FLEXPEN-MODERATE RESISTANCE 1 UNITS SC ×2 (12:20→16:40)
[2023-12-16 16:34] LABS: Glucose - Point of Care 191 mg/dl (70-99)
[2023-12-16] MEDS: LOPRESSOR 25 MG PO (20:36)
[2023-12-16 22:20] LABS: Glucose - Point of Care 212 mg/dl (70-99)
[2023-12-16] MEDS: LANTUS 0.0500000000000000028 UNITS SC (22:35)
[2023-12-16] MEDS: XALATAN OPHTHALMIC SOLUTION 1 DROP BOTH EYES (22:35)
[2023-12-17] VITALS (11 sets, daily range): BP systolic 115–138; BP diastolic 56–71; BMI 27.0
[2023-12-17 03:02] LABS: Glucose - Point of Care 176 mg/dl (70-99)
[2023-12-17 03:36] LABS: Hematocrit 27.7 % (39.0-52.0); Hemoglobin 9.4 g/dL (13.0-18.0); Mean Corp Hgb Conc. 33.9 g/dL (33.0-37.0); Mean Corpuscular Volume 91.4 fL (80.0-94.0); Mean Platelet Volume 12.2 fL (7.4-10.4); Platelet Count 110 10^3/uL (130-400); Red Blood Cell Count 3.03 10^6/uL (4.70-6.10); White Blood Cell Count 8.2 10^3/uL (4.8-10.8)
[2023-12-17 03:55] LABS: ALT (SGPT) 33 U/L (0-50); AST (SGOT) 44 U/L (17-59); Albumin 3.1 g/dl (3.5-5.0); Alkaline Phosphatase 42 U/L (38-126); Blood Urea Nitrogen 27 mg/dl (9-20); Calcium 7.8 mg/dl (8.4-10.2); Carbon Dioxide 27 mmol/L (22-30); Chloride 103 mmol/L (98-107); Estimated Creatinine Clearance 81 ml/min; Glucose 147 mg/dl (70-99); Magnesium 2.1 mg/dl (1.6-2.3); Potassium 4.3 mmol/L (3.5-5.1); Sodium 132 mmol/L (135-145); Total Bilirubin 1.5 mg/dl (0.2-1.3); Total Protein 4.4 g/dl (6.3-8.2); eGFR > 60.00
[2023-12-17] MEDS: SYNTHROID 112 MCG TUBE (04:11)
--- NOTE | 2023-12-17 06:57 | W.PN.UPDATE ---
Addendum entered and electronically signed by Franklin Whatley MD 12/17/23 07:11:
Also reviewed chart and see that new onset atrial flutter not mentioned in most recent progress notes has been placed on Eliquis and clopidogrel and aspirin discontinued during hospitalization will supply with apixaban 2.5 mg twice daily at
discharge with holding further aspirin and clopidogrel going forward cardiology will make follow-up appointment
Original Note:
Update Note
Progress Note Update
Prescription and examined no issues with swallowing over the weekend tolerating return to Mestinon/Dobbhoff tube removed
Some mild loose stools still
Exam otherwise unremarkable has been ambulating without difficulty.
Today will be last day of plasmapheresis
Will need diabetic nurse practitioner to evaluate further and resumption of insulin pump prior to discharge
Planned discharge for home care
[2023-12-17 07:22] LABS: Glucose - Point of Care 146 mg/dl (70-99)
--- NOTE | 2023-12-17 07:51 | W.PN.NEURO.1 ---
Today's Communication / Plan
-
-Final plasmapharesis 12/22 today
-Mestinon PO
-Planning for [facility] in the outpatient setting for chronic immune therapy for myasthenia gravis
-No barriers to discharge from my standpoint after last PLEX today
Will sign off call with questions and concerns
Neuro Assessment/Plan
Assessment
Myasthenia gravis flare with dysphagia
OMAR occurred possibly due to IVIG
Tolerated plasmapharesis well with improved dysphagia
Subjective/Objective
Subjective Data
Date of Service: December 17, 2023
No acute events, he is tolerating modified diet, no ptosis, no dysarthria, feels swallowing is improved, discussed last PLEX will be today
Objective Data
Vital Signs
Temp Pulse Resp BP Pulse Ox
98.1 F 90 14 124/59 94
12/17/23 03:43 12/17/23 04:04 12/17/23 02:00 12/17/23 02:00 12/16/23 22:41
Lab Results
12/17/23 03:05
12/17/23 03:05
Sodium 132 mmol/L (135-145) L 12/17/23 03:05
Potassium 4.3 mmol/L (3.5-5.1) 12/17/23 03:05
BUN 27 mg/dl (9-20) H 12/17/23 03:05
Glucose 147 mg/dl (70-99) H 12/17/23 03:05
Calcium 7.8 mg/dl (8.4-10.2) L 12/17/23 03:05
Ubl-I-Bommqdadxos Pept 1210 pg/ml 12/11/23 05:15
Patient Allergies
efgartigimod mary-fcab [From Vyvgart] Allergy (Verified 12/06/23 10:53)
Rash
Review of Systems
-
History Source: Patient
All other systems: Reviewed and negative
Constitutional: No Symptoms
EENT: No Symptoms Reported
Respiratory: No Symptoms
Cardiac: No Symptoms
Abdomen/GI: No Symptoms
Genitourinary: No Symptoms
Musculoskeletal: No Symptoms
Skin: No Symptoms
Neuro: No Symptoms
Endocrine: No Symptoms
Hematologic / Lymphatic: No Symptoms
Allergy / Immunology: No Symptoms
Physical Exam
-
General: Comfortable
Eyes: No Ptosis
HEENT: Normocephalic
Neck: No Bruits Bilaterally and Other (Plasmapharesis catheter in place no abnormalities)
Respiratory: Clear to Auscultation
Cardiac: Regular Rhythm
GI: Normal Bowel Sounds
Skin: Unremarkable
Extremities: No Clubbing
Psych: Unremarkable
Extended Neurological Exam
Mood & Affect: Mood Unremarkable and Affect Unremarkable
Attention Span & Concentration: Awake, Alert and Interactive
Memory: Unremarkable
Tremor: Hand Tremor Absent
Involuntary Movement: None
Speech: Negative Expressive Aphasia, Receptive Aphasia or Dysarthric
Cranial Nerve II: Left Eye: Pupillary Reactivity Unremarkable and Pupillary Size Unremarkable
Cranial Nerve II: Right Eye: Pupillary Reactivity Unremarkable and Pupillary Size Unremarkable
Cranial Nerves III, IV, : Extraocular Movement: Extraocular Movement Full in all Directions
Cranial Nerve VII: Facial Symmetry: Normal Facial Symmetry
Muscle Strength, Overall: Full Throughout
Pronator Drift: No Drift in Upper Extremities
[2023-12-17] MEDS: LIPITOR 80 MG TUBE (07:58)
[2023-12-17] MEDS: ELIQUIS 2.5 MG PO (07:59)
[2023-12-17] MEDS: LOPRESSOR 25 MG PO (07:59)
[2023-12-17] MEDS: MESTINON 60 MG PO (07:59)
[2023-12-17] MEDS: NOVOLOG FLEXPEN-MODERATE RESISTANCE SC (08:02)
[2023-12-17] MEDS: NOVOLOG FLEXPEN 3 UNITS SC ×2 (08:02→13:14)
[2023-12-17] MEDS: CALCIUM GLUCONATE 10% INJECTION 289.5 MG IV (08:03)
[2023-12-17] MEDS: CALCIUM GLUCONATE 10% INJECTION 289.5 GRAMS IV (08:03)
[2023-12-17 09:31] LABS: Fibrinogen 230 MG/DL (199-459)
--- NOTE | 2023-12-17 11:12 | PTCARENOTE ---
Plasmaphoresis under way
--- NOTE | 2023-12-17 11:34 | PN.DE.MGMTRT ---
Insulin Management
- -
12/17/2023: Diabetes Management F/U:
Patient admitted myasthenia gravis flare manifesting with dysphagia.
Pt states that he has had difficulty with both solid and liquid food as well as his oral medications.
PMH includes: HTN, HLD, CAD, CHF, hypothyroidism, antibody positive myasthenia gravis, IDDM, A1C 7.3%, was 7.1% on 06/06/23.
Was using [employer] 780G pump with NovoLog insulin, Quick Sets and CGM prior to admission, pump is at the bedside with supplies. He follows with Dr. Subramanian and sees Levar Alvarez.
He was noted for elevated glucose levels on initiation of IV steroids and was started on insulin drip-->transitioned off to basal insulin with corrective.
Patient is awake, alert and oriented, sitting up in bed, offers no complaints.
States he feels well and is eating w/o difficulties. He is awaiting final treatment of plasmapheresis.
His insulin regimen was adjusted over the weekend due to recurrent Hypoglycemia.
Pt would like his insulin pump resumed prior to discharge home but prefers to wait until completion of his plasmapheresis treatment.
OMAR resolved, Cr 0.8 today. Glucose remains stable. Received a dose of Lantus 5 units @ HS, FBG 147 this AM.
Plan is to return after plasmapheresis and resume insulin pump- According to Pt's Nurse txt will take an Hr. Pt's nurse was requested to TT Pat when pt is ready to have pump restarted.
Diabetes History
- -
Type of Diabetes: 1
Pre-Admission Diabetes Regimen
12/17/23
03:05
Creatinine 0.8
Lab Results
Hemoglobin A1c 7.3 % (4.0-5.6) H 12/07/23 04:54
Insulin Pump Settings
IP Diabetes Regimen
12/16/23 12/16/23 12/17/23
16:22 22:08 02:48
Glucose
POC Glucose 191 H 212 H 176 H
12/17/23 12/17/23
03:05 07:12
Glucose 147 H
POC Glucose 146 H
Meal type: Breakfast
Meal type: Dinner
Meal type: Lunch
Amount consumed: 100%
Amount consumed: 85%
Amount consumed: 100%
Patient Education
[2023-12-17 11:49] LABS: Glucose - Point of Care 252 mg/dl (70-99)
--- NOTE | 2023-12-17 12:33 | W.DCSUMMARY ---
Discharge Summary
Discharge Data
Date of Admission: 12/06/23
Date of Discharge: 12/17/23
-
Pending Results: No
Hospital Course
78-year-old male who presented with an apparent myasthenia flare manifesting as significant dysphagia may have been triggered by recent GI illness. Patient had also had previous immune medication for myasthenia gravis has not been started anything
[facility] Mustafa on the neurology service. Initial attempt at treatment included the initiation of IVIG and pulse steroids this was complicated by entrance and acute kidney injury necessitating a switch
toPLEX /without initial improvement the patient did require a Dobbhoff tube feed due to poor performance on bedside speech evaluation on 06 December consultation was placed with the pulmonary service in relation to his myasthenia flare and respiratory
issues concern. He had slow improvement with ongoing PLEX recent speech therapy following accordingly patient's other complications including diarrhea from tube feeds also having stopped his prior usage of insulin pump necessitating diabetic nurse
practitioner assistance. He was started on subcu Lantus and moderate dose sliding scale coverage on 07 December. He also subsequently developed thrombocytopenia with concerns of heparin-induced thrombocytopenia assay still pending of note the patient
had a transient episode of atrial flutter also necessitating additional consultation with the cardiology service who felt that the prior dosing of clopidogrel and aspirin can be stopped and favor of apixaban in the setting with ongoing
thrombocytopenia Lovenox DVT prophylaxis discontinued. There is also some concern from the effects of piperacillin influences the platelet count and that was discontinued in favor of ceftriaxone. With onset of acute kidney injury his prior dosing
of Lasix lisinopril metoprolol was withheld he has had resolution of his OMAR and nephrology input is been appreciated. He finally passed a swallow evaluation after that over the weekend and Dobbhoff tube was removed antibiotic therapy was
discontinued with concern being that he may have had an aspiration event that initiated some of this on presentation. Now resolution. At this point in time the patient will complete a course of plasmapheresis x 5 courses on the date of his
discharge he will have his insulin pump resumed we have made arrangements for visiting [facility] PT follow-up after removal of Dobbhoff tube feeds his Mestinon was resumed at prior dosing. Of note he finished his course of steroids. he
should continue aspiration precautions going forward/he has been instructed to withhold further usage of aspirin and clopidogrel and we called in a prescription for apixaban 2.5 mg twice a day no changes in metoprolol lisinopril furosemide or
atorvastatin and amlodipine.
Discharge Plan
-
Patient Disposition: Home (Routine Discharge)
Discharge Diagnosis/Procedures: Acute myasthenia gravis flare with dysphagia and diplopia, acute hypoxemic respiratory failure�resolved, acute kidney injury�resolved, thrombocytopenia�resolved, diarrhea�resolved, coronary artery disease, essential
hypertension, hyperlipidemia, type 2 diabetes mellitus/new onset Atrial flutter
Condition: Good
Diet: Diabetic, Carb Controlled
Activity: As tolerated
Driving Restrictions: As prior to admission
Bathing Restrictions: None
Referrals:
Dariel Mi MD [Active] - in two to three weeks
Agueda Barger CRNP [Specified Professional Personl] - 01/10/24 10:00 am (Your cardiology follow up appointment has changed. You will now be seeing Agueda on 01/10/24 in [facility] office. Please call with questions. )
Gary Norton MD [Family Provider] - in less than 1 week
Additional Discharge Medication Instructions: Stop aspirin and clopidogrel
Prescriptions:
New
Eliquis 2.5 mg Tablet
2.5 mg PO BID Qty: 60 0RF
Continued
atorvastatin 80 MG tablet
80 mg PO DAILY
levothyroxine 112 MCG tablet
112 mcg PO DAILY
amlodipine 5 MG tablet
5 mg PO DAILY
lisinopril 40 mg tablet
40 mg PO DAILY
clobetasol 0.05 % Ointment
1 applic TOPICAL DAILYPRN PRN (Reason: apply to B/L lower legs)
furosemide [Lasix] 20 mg Tablet
20 mg PO DAILYPRN PRN (Reason: swelling)
latanoprost 0.005 % Drops
1 drp BOTH EYES HS
insulin aspart U-100 [Novolog U-100 Insulin aspart] 100 unit/mL Solution
0 unit SC .VIA PUMP
Patient Comments:
12/06/2023, patient uses an insulin pump and the units used depends on his carb intake and basal rate. Patient states that he changes his insulin roughly once every 7 days; per pt., he changed his insulin roughly 6 days ago and it is due to be
changed tomorrow (12/07/2023).
metoprolol succinate 50 mg Tablet Extended Release 24 Hr
50 mg PO DAILY
pyridostigmine bromide 60 mg tablet
60 mg PO TID
Discontinued
clopidogrel 75 MG tablet
75 mg PO DAILY
aspirin 81 mg Tablet,Delayed Release (Dr/Ec)
81 mg PO DAILY
Discharge Orders:
Discharge Patient (As Directed); Ordered 12/17/23
Ordered By: Franklin Whatley
Discharge Date and Time
Print Language: SPANISH
--- NOTE | 2023-12-17 12:46 | W.DS.TRANS ---
Addendum entered and electronically signed by Franklin Whatley MD 12/17/23 16:37:
hyponatremia
Original Note:
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
-
Discharge Instructions:
Discharge Diagnosis/Procedures Acute myasthenia gravis flare with dysphagia and
diplopia, acute hypoxemic respiratory failure�
resolved, acute kidney injury�resolved,
thrombocytopenia�resolved, diarrhea�resolved,
coronary artery disease, essential hypertension,
hyperlipidemia, type 2 diabetes mellitus/new
onset Atrial flutter
Diet Diabetic, Carb Controlled
Activity As tolerated
Driving Restrictions As prior to admission
Bathing Restrictions None
Instructions:
Stand-Alone Forms:
Changes to Home Medications: Yes
Discharge Medications:
DC Medications w/original date entered in [employer]
atorvastatin 80 mg tablet 80 mg PO DAILY High cholesterol 04/28/15
levothyroxine 112 mcg tablet 112 mcg PO DAILY Thyroid 04/28/15
amlodipine 5 mg tablet 5 mg PO DAILY Blood pressure 01/09/22
lisinopril 40 mg tablet 40 mg PO DAILY Blood pressure 09/16/22
clobetasol 0.05 % topical ointment 1 applic topical DAILYPRN PRN apply to B/L lower legs 08/06/23
furosemide 20 mg tablet (Lasix) 20 mg PO DAILYPRN PRN swelling 08/06/23
insulin aspart U-100 100 unit/mL subcutaneous solution (Novolog U-100 Insulin aspart) 0 unit SC .VIA PUMP Diabetes 08/22/23
latanoprost 0.005 % eye drops 1 drp BOTH EYES HS Eye Condition 08/22/23
metoprolol succinate 50 mg tablet,extended release 24 hr 50 mg PO DAILY Blood Pressure 12/06/23
pyridostigmine bromide 60 mg tablet 60 mg PO TID myasthenia gravis 12/06/23
apixaban 2.5 mg tablet (Eliquis) 2.5 mg PO BID #60 tabs 12/17/23
Home Medication Changes
apixaban 2.5 mg tablet (Eliquis) 2.5 mg PO BID #60 tabs 12/17/23
Pending Results: No
[2023-12-17] MEDS: NOVOLOG FLEXPEN-MODERATE RESISTANCE 5 UNITS SC (13:13)
--- NOTE | 2023-12-17 14:05 | PN.CDI ---
CDI
- -
CDI:
Physician Documentation Request
Admit Date: 12/06/23 12:46
Dear Doctor Chacorta ,
Please review the following and provide your response in the progress notes.
Clinical Indicators:
Pt admitted with Myasthenia Gravis exacerbation on plasmapheresis/PLEX
Pt had Dysphagia and was on tube feeds due to difficulty swallowing and developed Diarrhea
Sodium levels are as below /Did get IVFs NS
12/07/23 12/16/23 12/17/23
18:50 04:39 03:05
Sodium 129 L 133 L 132 L
Based on the above, could you clarify in the progress notes, the appropriate diagnosis, if significant, that supports the above abnormalities and additional evaluation, monitoring and/or treatment rendered:
Hyponatremia
Abnormal lab value only
Other
Use of terms such as suspected, likely, concern for, or probable (associated with a specific diagnosis that is being evaluated, monitored, or treated as if it exists) are acceptable and can be coded in the inpatient setting, when documented at the
time of discharge.
Thank you,
Kaye Townsend RN
CDI Specialist
[place] [employer]
Please use your independent medical judgment in providing your response.
--- NOTE | 2023-12-17 14:10 | PN.DE.MGMTRT ---
Insulin Management
- -
12/17/2023: Diabetes Management F/U:
Patient admitted myasthenia gravis flare manifesting with dysphagia.
Pt states that he has had difficulty with both solid and liquid food as well as his oral medications.
PMH includes: HTN, HLD, CAD, CHF, hypothyroidism, antibody positive myasthenia gravis, IDDM, A1C 7.3%, was 7.1% on 06/06/23.
Was using [employer] 780G pump with NovoLog insulin, Extended (7 day wear) infusion set and CGM prior to admission, pump is at the bedside with supplies. He follows with Dr. Subramanian and sees Levar Alvarez.
Patient is ready for discharge. Worked with patient to resume pump. Patient prepared reservoir and infusion set without difficulty. Pump settings as follows:
Basal carb ratio correction target
12am .225 12 40 125
4am .25
6am .55
8am .6
12pm .55
4pm .4
24 hour basal 10.3
active insulin 2 hours.
Pump and sensor did not auto connect. Advised to continue to manually pair sensor to pump. If not paired by 2:30pm will call [employer]. Patient does have a glucose monitor working at home should sensor not pair. Patient is ready for discharge.
Diabetes History
- -
Type of Diabetes: 1
Pre-Admission Diabetes Regimen
12/17/23
03:05
Creatinine 0.8
Lab Results
Hemoglobin A1c 7.3 % (4.0-5.6) H 12/07/23 04:54
Insulin Pump Settings
IP Diabetes Regimen
12/16/23 12/16/23 12/17/23
16:22 22:08 02:48
Glucose
POC Glucose 191 H 212 H 176 H
12/17/23 12/17/23 12/17/23
03:05 07:12 11:38
Glucose 147 H
POC Glucose 146 H 252 H
Meal type: Breakfast
Meal type: Dinner
Amount consumed: 100%
Amount consumed: 85%
Patient Education
--- NOTE | 2023-12-17 14:51 | PTCARENOTE ---
IJ removed by IV team
--- NOTE | 2023-12-17 16:02 | PTCARENOTE ---
Pt dc home with son and home care. Insulin pump hooked up. all IV access dc
== END 2023-12-17 16:03 | disposition home or self-care (01) | DRG 56 ==
LOC: IMU 12:46
PROVIDERS: Family Medicine; Internal Medicine; Nurse Practitioner Acute Care; Nurse Practitioner Family; Radiology Vascular & Interventional Radiology; ADMITTING PHYSICIAN Internal Medicine; ATTENDING PHYSICIAN Internal Medicine; CONSULT PHYSICIAN Internal Medicine Cardiovascular Disease; CONSULT PHYSICIAN Internal Medicine Pulmonary Disease; CONSULT PHYSICIAN Student in an Organized Health Care Education/Training Program; EMERGENCY PHYSICIAN Emergency Medicine; FAMILY PHYSICIAN Family Medicine
PROC: 6A551Z3 Pheresis of Plasma, Multiple (ICD-10-PCS; 2023-12-06)
PROC: 30233S1 Transfusion of Nonautologous Globulin into Peripheral Vein, Percutaneous Approach (ICD-10-PCS; 2023-12-06)
PROC: 02HV33Z Insertion of Infusion Device into Superior Vena Cava, Percutaneous Approach (ICD-10-PCS; 2023-12-08)
DX: G70.01 Myasthenia gravis with (acute) exacerbation (principal); J18.9 Pneumonia, unspecified organism; J96.01 Acute respiratory failure with hypoxia; N17.9 Acute kidney failure, unspecified; I48.92 Unspecified atrial flutter; I50.32 Chronic diastolic (congestive) heart failure; I25.10 Atherosclerotic heart disease of native coronary artery without angina pectoris; I45.10 Unspecified right bundle-branch block; I11.0 Hypertensive heart disease with heart failure; I87.2 Venous insufficiency (chronic) (peripheral); I49.5 Sick sinus syndrome; E78.00 Pure hypercholesterolemia, unspecified; E11.9 Type 2 diabetes mellitus without complications; E03.9 Hypothyroidism, unspecified; M41.9 Scoliosis, unspecified; D69.59 Other secondary thrombocytopenia; Z79.02 Long term (current) use of antithrombotics/antiplatelets; Z79.4 Long term (current) use of insulin; Z79.82 Long term (current) use of aspirin; Z79.899 Other long term (current) drug therapy; Z86.73 Personal history of transient ischemic attack (TIA), and cerebral infarction without residual deficits; Z95.0 Presence of cardiac pacemaker; Z95.1 Presence of aortocoronary bypass graft; Z96.41 Presence of insulin pump (external) (internal); Z87.891 Personal history of nicotine dependence
CPT/HCPCS: 36558; 36600; 71045; 71046; 74018; 74230; 76937; 80048; 80053; 82043; 82805; 82947; 82962; 83036; 83735; 83880; 84156; 84439; 84443; 84484; 85025; 85027; 85384; 86022; 92526; 92610; 92611; 93005; 93306; 94640; 96361; 96365; 96366; 97116; 97163; 97530; 97535; 99285; C1752; J1569; J3480; P9045

== ENCOUNTER 2024-01-17 09:22 | Outpatient (RCR) | payer OTHER, SELFPAY | END 2024-01-17 23:59 | disposition home or self-care (01) | LOC: RST 09:22 | PROVIDERS: ATTENDING PHYSICIAN Nurse Practitioner Adult Health; FAMILY PHYSICIAN Family Medicine | DX: G70.00 Myasthenia gravis without (acute) exacerbation (principal); R13.12 Dysphagia, oropharyngeal phase | CPT/HCPCS: 92526; 92610 ==

== ENCOUNTER 2024-02-07 08:50 | Outpatient (RCR) | payer OTHER, SELFPAY | END 2024-02-07 23:59 | disposition home or self-care (01) | LOC: RST 08:50 | PROVIDERS: ATTENDING PHYSICIAN Nurse Practitioner Adult Health; FAMILY PHYSICIAN Family Medicine | DX: G70.00 Myasthenia gravis without (acute) exacerbation (principal); R13.12 Dysphagia, oropharyngeal phase | CPT/HCPCS: 92526 ==

== ENCOUNTER 2024-02-10 12:51 | Inpatient (IN) | payer OTHER, SELFPAY ==
[2024-02-10] VITALS (20 sets, daily range): BP systolic 94–136; BP diastolic 41–74; BMI 24.3; BMI 23.0
--- NOTE | 2024-02-10 09:17 | ED.GENMED ---
History of Present Illness
General
Chief Complaint: Swallowing Problem
Source: patient and ambulance crew
Exam Limitations: none
Time Seen by Provider: 02/10/24 09:07
Nursing documentation reviewed up to this point in time: agreed with
History of Present Illness
History of Present Illness:
78-year-old male presents emerged part complaining of difficulty swallowing pills and food this morning. He also notes that he has had difficulty reading small print recently. He has a history of myasthenia gravis, and this feels similar. He was
hospitalized in November for similar.
Past History
Past History
ED Past Medical History: Arrthythmia (SA node dysfunction), CAD, HTN, Hypercholesterolemia, IDDM, Hypothyroidism and Other (Cricopharyngeus bar)
ED Past Surgical History: Cardiac (medtronic pacemaker 2007) and Other
Social History
Tobacco: Non-smoker
Alcohol: None
Drug: None
Personal: Other
Living: alone
Employment: Retired
Family History
Family History: Other (Sister with diabetes)
Review of Systems
Review of Systems
Allergies reviewed?: Yes
All Other Systems: Not applicable
Constitutional: Reports no symptoms
EENT: Reports no symptoms
Respiratory: Reports no symptoms
Cardiac: Reports no symptoms
ABD/GI: Reports other (Difficulty swallowing)
: Reports no symptoms
Musculoskeletal: Reports no symptoms
Skin: Reports no symptoms
Neurological: Reports no symptoms
Endocrine: Reports no symptoms
Hematologic/Lymphatic: Reports no symptoms
Psychiatric: Reports no symptoms
Phy Exam
Physical Exam
Physical Exam:
Physical Exam
General: no apparent distress, not acutely ill
Neck: supple. no meningeal signs. normal posterior pharynx
Heart: s1/s2 regular rate and rhythm, no murmur. equal radial
pulses.
HEENT: Pupils equal round reactive to light, EOMI
Lungs: no acute respiratory distress. clear bilaterally
Abdomen: normal bowel sounds. not tender. no CVAT
Neuro: alert and oriented. no focal neurological deficits cranial nerves II through XII intact
Skin: no rash
Psychiatric: well kept. interactive and cooperative
Extremities: no edema. no calf tenderness. negative homans. good distal pulses
Course
Orders/Labs/Results
Orders:
Orders
02/10/24 09:13
Pft Nif [RESP] Urgent
02/10/24 09:14
IV Insert/Care/Rem.- Treatment PRN
Complete Blood Count/With Diff Urgent
Comprehensive Metabolic Panel Urgent
Vital Signs
Initial and Last Documented VS:
Initial Vital Signs
Temp Pulse Resp BP Pulse Ox
98.3 F 74 20 136/74 99
02/10/24 09:09 02/10/24 09:09 02/10/24 09:09 02/10/24 09:09 02/10/24 09:09
Last Documented Vital Signs
Temp Pulse Resp BP Pulse Ox
98.3 F 74 20 136/74 99
02/10/24 09:09 02/10/24 09:09 02/10/24 09:09 02/10/24 09:09 02/10/24 09:09
MDM/Problems Addressed
Differential Diagnosis Includes:
Ascending gravis, respiratory failure, esophageal food bolus
MDM/Problems Addressed:
78-year-old male with symptoms consistent with myasthenia gravis flare. Onset this morning. IV and basic labs ordered. Will consult with neurology. Plan to admit to hospitalist.
Chronic conditions affecting care: Neurological disorder (Myasthenia gravis)
Acute Exacerbation and/or Progression of Chronic Illness: Neurological disorder (Myasthenia gravis)
*Pulse Oximetry
Patient hypoxic: no
*Critical Care Note
Total Time (30-74mins, 75-104mins- exclusive of procedures): Not Applicable
Data Reviewed
Review of Other/Old Records Reveals: Progress Notes (Prior consult from Dr. Mi for myasthenia gravis flare 12/06/2023)
Patient Management
Social determinants of health affecting care: Living situation
Discussion with other providers: Hospitalist and Advertising Photographer (Neurology)
Escalation/DeEscalation of care consider admission/obs:
Admit indicated
ED Attending Note
-
Portions of this chart may have been created with voice recognition software.� Occasional wrong word or��sound alike� substitutions may have occurred due to the inherent limitations of voice recognition software.
Discharge Plan
Departure
Admit to: IMU
Presentation/result/management discussed w/ accepting MD/DO: Hospitalist
Patient with high blood pressure during this ER visit?: Yes
Condition: Good
Discharge Problem:
Myasthenia gravis with (acute) exacerbation
Prescriptions:
No Action
atorvastatin 80 MG tablet
80 mg PO DAILY
levothyroxine 112 MCG tablet
112 mcg PO DAILY
amlodipine 5 MG tablet
5 mg PO DAILY
lisinopril 40 mg tablet
40 mg PO DAILY
clobetasol 0.05 % Ointment
1 applic TOPICAL DAILYPRN PRN (Reason: apply to B/L lower legs)
furosemide [Lasix] 20 mg Tablet
20 mg PO DAILYPRN PRN (Reason: swelling)
latanoprost 0.005 % Drops
1 drp BOTH EYES HS
insulin aspart U-100 [Novolog U-100 Insulin aspart] 100 unit/mL Solution
0 unit SC .VIA PUMP
Patient Comments:
12/06/2023, patient uses an insulin pump and the units used depends on his carb intake and basal rate. Patient states that he changes his insulin roughly once every 7 days; per pt., he changed his insulin roughly 6 days ago and it is due to be
changed tomorrow (12/07/2023).
metoprolol succinate 50 mg Tablet Extended Release 24 Hr
50 mg PO DAILY
pyridostigmine bromide 60 mg tablet
60 mg PO TID
Eliquis 2.5 mg Tablet
2.5 mg PO BID Qty: 60 0RF
Discharge Date and Time
Print Language: POLISH
[2024-02-10 09:44] LABS: % Basophils 1.2 % (0-2); % Eosinophils 2.7 % (0-6); % Immature Granulocytes 0.2 % (0-0.5); % Lymphocytes 20.9 % (20.5-51.1); % Monocytes 11.9 % (1.7-9.3); % Neutrophils 63.1 % (42.2-75.2); Absolute Basophils 0.1 10^3/uL (0-0.2); Absolute Eosinophils 0.2 10^3/uL (0-0.7); Absolute Lymphocytes 1.2 10^3/uL (1.2-3.4); Absolute Monocytes 0.7 10^3/uL (0.1-0.6); Absolute Neutrophils 3.5 10^3/uL (1.4-6.5); Hematocrit 34.6 % (39.0-52.0); Hemoglobin 11.8 g/dL (13.0-18.0); Mean Corp Hgb Conc. 34.1 g/dL (33.0-37.0); Mean Corpuscular Hgb 30.2 pg (27.0-31.0); Mean Corpuscular Volume 88.5 fL (80.0-94.0); Mean Platelet Volume 12.1 fL (7.4-10.4); Nucleated Red Blood Cells % 0 % (-); Platelet Count 166 10^3/uL (130-400); Red Blood Cell Count 3.91 10^6/uL (4.70-6.10); Red Cell Dist. Width 15.1 % (11.5-14.5); White Blood Cell Count 5.6 10^3/uL (4.8-10.8)
[2024-02-10 10:03] LABS: ALT (SGPT) 27 U/L (0-50); AST (SGOT) 32 U/L (17-59); Albumin 3.8 g/dl (3.5-5.0); Alkaline Phosphatase 73 U/L (38-126); Blood Urea Nitrogen 15 mg/dl (9-20); Carbon Dioxide 29 mmol/L (22-30); Chloride 107 mmol/L (98-107); Estimated Creatinine Clearance 72 ml/min; Glucose 140 mg/dl (70-99); Potassium 3.9 mmol/L (3.5-5.1); Sodium 140 mmol/L (135-145); Total Bilirubin 1.1 mg/dl (0.2-1.3); Total Protein 6.1 g/dl (6.3-8.2); eGFR > 60.00
--- NOTE | 2024-02-10 12:12 | HPS.HSE ---
Family Physician
-
Family Physician: Gary Norton
Chief Complaint
-
trouble taking pills
History of Present Illness
78-year-old male significant past medical history past medical history myasthenia gravis with multiple flareup was admitted to hospital 2 months ago and received plasmapheresis. Patient stated this morning he noticed slurred speech and trouble
swallowing. States last night he had mild trouble swallowing however this morning he had difficulty swallowing pills at times. He was able to swallow all the pills including Eliquis this morning. States usually slurred speech and dysphagia
symptoms for his bladder. Denies any neck pain or chest pain or shortness of breath or lower extremity weakness. Denies urinary fecal incontinence. Denies any trouble moving neck. Denies any upper extremity weakness. States he was seen by
speech therapy last week and he was improving significantly. Denies any recent fever or sick contact. Lives alone. No nausea vomiting diarrhea.
Medical History
Past Medical History
Past Medical History: Reports CAD, HTN, Hypercholesterolemia, IDDM and Other (Myasthenia gravis)
Past Surgical History: Reports Cardiac (pacemaker)
Social History
Tobacco: Non-smoker
Alcohol: None
Living: Alone
Employment: Retired
Family History
Family History: Not pertinent
Allergies / Home Medications
Allergies reflects when Allergies were last updated in [employer].
Home Medications with original date entered in [employer]
Allergy/Medication List:
Allergies
Allergy/AdvReac Type Severity Reaction Status Date / Time
efgartigimod mary-fcab Allergy Rash Verified 12/06/23 10:53
[From [facility]]
Home Medications
atorvastatin 80 mg tablet 80 mg PO DAILY High cholesterol 04/28/15
levothyroxine 112 mcg tablet 112 mcg PO DAILY Thyroid 04/28/15
amlodipine 5 mg tablet 5 mg PO DAILY Blood pressure 01/09/22
lisinopril 40 mg tablet 40 mg PO DAILY Blood pressure 09/16/22
metoprolol succinate 50 mg tablet,extended release 24 hr 50 mg PO DAILY Blood Pressure 12/06/23
pyridostigmine bromide 60 mg tablet 60 mg PO TID myasthenia gravis 12/06/23
Patient Own Insulin Pump 0 units SC .VIA PUMP 02/10/24
apixaban 2.5 mg tablet (Eliquis) 2.5 mg PO BID 02/10/24
ketorolac 0.5 % eye drops 1 drp BOTH EYES QID 02/10/24
Review of Systems
-
History Source: Patient
A 12 point ROS was completed and negative except as noted: Yes
Physical Exam
Vital Signs
Vital Signs
Temp Pulse Resp BP Pulse Ox
98.3 F 74 20 121/65 97
02/10/24 09:09 02/10/24 09:09 02/10/24 09:09 02/10/24 11:00 02/10/24 11:00
Physical Exam
General: No Apparent Distress
HEENT: NormoCephalic, Anicteric, Moist mucous membranes, PERRLA and Other (wearing glasses); No Cornelius Conjunctivae
Respiratory: Clear
Cardiac: S1/S2 and Regular Rhythm
GI: Soft, Non Tender, Non Distended and Normal Bowel Sounds
Musculoskeletal: Edema, Left Lower Extremity (Chronic venous stasis ) and Edema, Right Lower Extremity (Chronic venous stasis )
Skin: Warm
Neuro: Awake, AO x 3, No Motor Deficits, Slurred Speech and Other (no nystagmus); No Facial Droop or Tremors
Psych: Calm
Laboratory Results
-
02/10/24 09:32
02/10/24 09:32
Laboratory Results
Total Bilirubin 1.1 mg/dl (0.2-1.3) 02/10/24 09:32
AST 32 U/L (17-59) 02/10/24 09:32
ALT 27 U/L (0-50) 02/10/24 09:32
Alkaline Phosphatase 73 U/L (38-126) 02/10/24 09:32
Impression/Plan
-
#Acute myasthenia gravis flareup with dysphagia
IVIG
IV steroids high-dose high dose
Swallow evaluation
Monitor respiratory status closely. NIFs ordered
Monitor O2 saturation closely
Await further neurology recommendation
#Primary hypertension
IV meds as needed
#Hyperlipidemia
Hold p.o. medication
#Diabetes mellitus on insulin pump
Hold insulin pump. Patient to remove insulin pump
Will start patient on basal regimen. Insulin sliding scale.
Diabetic nurse petitioner consultation in the morning
CAD status post CABG
Without any chest pain.
Off antiplatelets and on Eliquis
Atrial flutter
Continue with Eliquis
If unable to tolerate then start heparin infusion
Patient verbalized understanding with the plan
Hypothyroidism
Hold p.o. Synthroid
If persistent n.p.o. status will start IV meds
Sick sinus syndrome status post pacemaker
History of TIA/CVA
Chronic venous insufficiency
DVT prophylaxis Eliquis
Full code
d/w with neurology
--- NOTE | 2024-02-10 12:43 | CON.NEURO4 ---
Consultation - Neurology 4
-
CONSULTING PHYSICIAN: Alma Delia Mi
REFERRING PHYSICIAN: ER
DICTATED BY: Alma Delia Mi
DATE/TIME OF REQUEST: 02/10/24
DATE/TIME OF CONSULTATION: 02/10/24
Reason for Consultation: Dysphagia, history of myasthenia gravis
History of Present Illness:
The patient is an 78-year-old male with a past medical history of antibody positive myasthenia gravis, insulin-dependent diabetes mellitus, hypertension, coronary artery disease, permanent pacemaker presented to hospital with dysphagia evolving over
the past 2 days and had great difficulty in taking pills this morning. Also noticed a little bit of slurred speech in the past 2 to 3 days. He has had some blurred vision but no overt double vision or ptosis.
Patient had recently finished a course of 6 weeks of weekly Rozanolixizumab/Rystiggo for myasthenia gravis which she tolerated well.
Not noticing any ambulatory difficulties or weakness and lifting the arms. Denies any dyspnea. No recent medication changes.
No unilateral weakness or paresthesia vertigo vision changes or unusual headaches.
Past Medical History: Antibody positive myasthenia gravis, insulin dependent diabetes mellitus, hypertension, coronary artery disease
Surgical History: Cardiac permanent pacemaker, PEG tube since removed
Family History: Non-contributory
Social History: Retired, lives on his own, no significant tobacco, no alcohol
Allergies: Efgartigimod mary Rash on stomach
Review of Symptoms:
Patient denies any fever, headache, chest pain, shortness of breath, GI or symptoms.
Physical Exam:
Middle-age man well-appearing no signs of distress, no head or neck trauma, eyes are clear, oropharynx is clear neck with no masses, heart rate regular, breathing unlabored abdomen soft nontender no lower extremity edema
Neurologic Examination:
The patient is awake, alert and oriented x 3. He is able to follow commands and answer questions appropriately. No aphasia. Good historian. Conversational and appropriate. On cranial nerve assessment he is moderately dysarthric, pupils are 3 mm
bilateral, round and reactive to light and accommodation. Visual adams are full. Extraocular movements are intact. Not ptosis. Facial sensations are intact and bilaterally symmetrical, there is no facial asymmetry. Hearing is intact bilaterally
to normal conversation volume. Tongue palate and uvula are midline. Sternocleidomastoid strengths are full bilaterally. Shoulder abduction arm flexion hip flexion neck flexion/extension 5/5 bilaterally. There is no drift or involuntary movement
noted. Deep tendon reflexes are 2+ bilateral upper and lower extremities and Babinski is absent bilaterally. Intact to light touch in arms and legs. Coordination is intact by finger to nose bilaterally.
Impressions
Dysphagia and mild dysarthria, most likely a moderate flare of myasthenia gravis but unfortunately would prohibit him from taking medication safely. Patient had recently finished a course of immune therapy Rystiggo but may not have had maximal
therapeutic effects from this. No obvious recent illnesses or medication changes that appear to be an antecedent. No evidence by history or exam to suggest an ischemic stroke as cause.
Recommendations:
1. Patient had had mild OMAR associated with IVIG treatment in November 2023, would be reasonable to use some IV fluids for extra hydration, I would prefer to pursue IVIG treatment rather than a repeated course of plasmapheresis given the risks along
with tendency for difficult venous access if repeated plasmapheresis sessions are pursued
2. Speech therapy evaluation
3. Would place on IV steroid 1000 mg methylprednisolone once a day for 3 days, will need to follow glucose and may make adjustments in insulin and diabetic medications
4. 5-day course of IVIG for myasthenia flare
5. Mobilization physical Occupational Therapy
6. Hold off Pyridostigmine for the time being, reassess ability for PO as his course progresses
Discussed patient care with: Patient, ER, hospitalist
[2024-02-10] MEDS: SOLU-MEDROL 258 MG IV (13:33)
[2024-02-10] MEDS: GAMMAGARD 300 IV (14:34)
--- NOTE | 2024-02-10 15:05 | PTOTSP ---
ST Acute Care Evaluation
Pt presents with suspected moderate pharyngeal dysphagia as characterized by globus sensation with solids that is unable to be cleared with dry swallows (needs liquid washes) as well as fairly persistent throat clearing following liquid ingestion,
indicative of possible penetration/aspiration events.
Recommendations:
- Keep NPO x critical meds with single sips of water
- ARHP - ice chips; sparingly; with supervision
- Aspiration precautions: HOB upright as often as possible; oral care QID
- VFSS tomorrow for more information regarding pt's current swallowing function.
- FINANCIAL UNDERWRITER to provide further recommendations following VFSS completion.
[2024-02-10 16:24] LABS: Glucose - Point of Care 320 mg/dl (70-99)
--- NOTE | 2024-02-10 16:54 | PTCARENOTE ---
Received pt from ER via stretcher, accompanied by ER staff. Pt AO x3, KELLY; ambulatory to bed with assist x1; sl unsteady w/OOB activity; denies weakness/dizziness. VSS. Placed on telemetry:AV paced rhythm. On room air- pulse ox 100%, no SOB
noted. Abd soft, rounded, pt aware of NPO except meds/sips clears. Pt DTV; urinal at bedside. Afebrile warm and dry; skin on lower legs reddened/dry with scattered small scabbed areas. IVIG infusing via Rt AC site without sx of infiltration.
Oriented to 4east, currently resting comfortably. Will continue to monitor.
[2024-02-10] MEDS: NOVOLOG FLEXPEN-LOW RESISTANCE 4 UNITS SC (17:04)
[2024-02-10] MEDS: LR 1000 IV (17:34)
[2024-02-10] MEDS: ACULAR 0.5% EYE DROPS BOTH EYES (17:35)
[2024-02-10] MEDS: ACULAR 0.5% EYE DROPS 1 DROP BOTH EYES ×2 (17:35→20:31)
--- NOTE | 2024-02-10 17:37 | PTCARENOTE ---
IVIG infusion complete without adverse effects; VSS. IVF's RL @ 75 ml/hr started via Rt AC site; no sx of infiltration.
[2024-02-10] MEDS: ELIQUIS 2.5 MG PO (20:30)
[2024-02-10 21:56] LABS: Glucose - Point of Care 410 mg/dl (70-99)
[2024-02-10] MEDS: LANTUS 0.100000000000000006 UNITS SC (22:01)
[2024-02-10] MEDS: TYLENOL/FEVERALL 650 MG RECTAL (22:12)
[2024-02-10 23:09] LABS: Glucose 359 mg/dl (70-99)
[2024-02-10] MEDS: NOVOLOG FLEXPEN 8 UNITS SC (23:26)
[2024-02-11] VITALS (13 sets, daily range): BP systolic 105–143; BP diastolic 54–70; BMI 23.2
[2024-02-11 03:12] LABS: Glucose - Point of Care 353 mg/dl (70-99)
[2024-02-11] MEDS: LR 1000 IV ×2 (04:42→17:21)
[2024-02-11 06:05] LABS: Glucose - Point of Care 361 mg/dl (70-99)
[2024-02-11] MEDS: NOVOLOG FLEXPEN-LOW RESISTANCE 5 UNITS SC (06:25)
--- NOTE | 2024-02-11 06:25 | W.PN.NEURO.1 ---
Today's Communication / Plan
-
-Monitor respiratory function for now with NIF and VC
-Video swallow planned, appreciate speech therapy input
-IV steroid day 2/3, monitor glucose and may need insulin adjustments. Would prefer to keep off mcfp steroid given diabetes
-IVIG day 2/5, hydration, monitor kidney function
-Follow clinically
Will follow
Neuro Assessment/Plan
Assessment
History antibody positive myasthenia gravis
Had tried Vyvgart for immune medication but had rash
Recently finished course of Rystiggio for immune medication for myasthenia gravis
Most recent flare of MG was in November 2023 treated with PLEX at that time
Presents with dysphagia prohibiting pill intake, mild dysarthria, little significant weakness of limbs, neck, ptosis or diplopia. No respiratory symptoms. No obvious antecedent no recent illness, procedures, or new medications.
Mild flare of myasthenia gravis is likely.
Subjective/Objective
Subjective Data
Date of Service: February 11, 2024
No acute events, some coughing and brining up phlegm yesterday, no dyspnea, no diplopia or ptosis
Objective Data
Vital Signs
Temp Pulse Resp BP Pulse Ox
97.8 F 70 18 112/55 94
02/11/24 03:32 02/11/24 03:32 02/11/24 03:32 02/11/24 03:32 02/11/24 03:32
Sodium 140 mmol/L (135-145) 02/10/24 09:32
Potassium 3.9 mmol/L (3.5-5.1) 02/10/24 09:32
BUN 15 mg/dl (9-20) 02/10/24 09:32
Glucose 359 mg/dl (70-99) H 02/10/24 22:51
Calcium 9.0 mg/dl (8.4-10.2) 02/10/24 09:32
Patient Allergies
efgartigimod mary-fcab [From [facility]] Allergy (Verified 02/10/24 16:00)
Rash
Review of Systems
-
History Source: Patient
All other systems: Reviewed and negative
Constitutional: No Symptoms
EENT: No Symptoms Reported
Respiratory: No Symptoms
Cardiac: No Symptoms
Abdomen/GI: No Symptoms
Genitourinary: No Symptoms
Musculoskeletal: No Symptoms
Skin: No Symptoms
Neuro: Speech Problem
Endocrine: No Symptoms
Hematologic / Lymphatic: No Symptoms
Allergy / Immunology: No Symptoms
Physical Exam
-
General: Comfortable
Eyes: No Ptosis
HEENT: Normocephalic
Neck: No Bruits Bilaterally
Respiratory: Clear to Auscultation
Cardiac: Regular Rhythm
GI: Normal Bowel Sounds
Skin: Unremarkable
Extremities: No Clubbing
Psych: Unremarkable
Extended Neurological Exam
Mood & Affect: Mood Unremarkable and Affect Unremarkable
Attention Span & Concentration: Awake, Alert and Interactive
Memory: Unremarkable
Tremor: Hand Tremor Absent
Involuntary Movement: None
Speech: Quality Unremarkable, Quantity Unremarkable and Dysarthric; Negative Expressive Aphasia or Receptive Aphasia
Cranial Nerve II: Left Eye: Pupillary Reactivity Unremarkable, Pupillary Size Unremarkable and Other (No ptosis)
Cranial Nerve II: Right Eye: Pupillary Reactivity Unremarkable, Pupillary Size Unremarkable and Other (No ptosis)
Cranial Nerves III, IV, : Extraocular Movement: Extraocular Movement Full in all Directions
Cranial Nerve VII: Facial Symmetry: Normal Facial Symmetry
Muscle Strength, Overall: Other (5/5 neck flexion extension shoulder abduction)
Coordination: [id number] Testing Unremarkable
[2024-02-11 07:47] LABS: % Basophils 0.2 % (0-2); % Immature Granulocytes 0.4 % (0-0.5); % Lymphocytes 12.2 % (20.5-51.1); % Monocytes 1.7 % (1.7-9.3); % Neutrophils 85.5 % (42.2-75.2); Absolute Lymphocytes 0.6 10^3/uL (1.2-3.4); Absolute Monocytes 0.1 10^3/uL (0.1-0.6); Absolute Neutrophils 4.4 10^3/uL (1.4-6.5); Hematocrit 32.3 % (39.0-52.0); Hemoglobin 11.2 g/dL (13.0-18.0); Mean Corp Hgb Conc. 34.7 g/dL (33.0-37.0); Mean Corpuscular Hgb 30.3 pg (27.0-31.0); Mean Corpuscular Volume 87.3 fL (80.0-94.0); Mean Platelet Volume 12.1 fL (7.4-10.4); Nucleated Red Blood Cells % 0 % (-); Platelet Count 158 10^3/uL (130-400); Red Cell Dist. Width 14.8 % (11.5-14.5); White Blood Cell Count 5.2 10^3/uL (4.8-10.8)
[2024-02-11 08:07] LABS: Blood Urea Nitrogen 38 mg/dl (9-20); Calcium 9.1 mg/dl (8.4-10.2); Carbon Dioxide 20 mmol/L (22-30); Chloride 106 mmol/L (98-107); Estimated Creatinine Clearance 50 ml/min; Glucose 308 mg/dl (70-99); Potassium 4.1 mmol/L (3.5-5.1); Sodium 134 mmol/L (135-145); eGFR 55.53
--- NOTE | 2024-02-11 08:15 | PN.DE.MGMTRT ---
Insulin Management
- -
02/11/2024: Diabetes Management Consult:
78 year old male known to me from previous hosp admissions, presented to hospital with likely myasthenia gravis flare manifesting with dysphagia.
Pt states that he has had difficulty with both solid and liquid food as well as his oral medications.
PMH includes: HTN, HLD, CAD, CHF, hypothyroidism, antibody positive myasthenia gravis, IDDM, A1C 6.6%, down from 7.3% on 12/07/23.
Was using [employer] 780G pump with NovoLog insulin, Quick Sets and CGM prior to admission. He follows with Dr. Subramanian and sees Levar Alvarez.
Pt reports that pump was discontinued on arrival to the ED and was taken home with family.
He has been started on 5 day course of IVIG and a 3 day course of high dose IV steroids-->Steroid induced Hyperglycemia.
Pt awake, alert, oriented, very conversant and pleasant, able to discuss diabetes management.
He is currently NPO, awaiting video swallow study today and potentially start oral diet.
Current Diabetes regimen includes low corrective insulin Q6hrs and Lantus 10 units @ HS, has been increased to 125 units by primary team
His glucose levels trended up to 410 at initiation of steroids. Expect ongoing elevations of glucose while on IV Steroids.
Will increase Lantus to 15 units BID and change to high corrective Q6hrs.
Will consider adding AC NovoLog if diet has been started.
Instructed pt to have family bring in his insulin pump on Sunday with plans to resume it after 3 days of steroids.
Will closely follow and adjust insulin if necessary
Diabetes History
- -
Type of Diabetes: 1
Pre-Admission Diabetes Regimen
02/10/24 02/11/24
09:32 07:29
Creatinine 0.9 1.3
Insulin Pump Settings
IP Diabetes Regimen
02/10/24 02/10/24 02/10/24
09:32 16:23 21:54
Glucose 140 H
POC Glucose 320 H 410 H
02/10/24 02/11/24 02/11/24
22:51 03:11 06:04
Glucose 359 H
POC Glucose 353 H 361 H
02/11/24
07:29
Glucose 308 H
POC Glucose
Meal type: Dinner
Amount consumed: 0
Patient Education
[2024-02-11] MEDS: LANTUS 0.149999999999999994 UNITS SC ×2 (09:03→22:27)
[2024-02-11] MEDS: ACULAR 0.5% EYE DROPS 1 DROP BOTH EYES ×4 (09:03→22:26)
[2024-02-11] MEDS: ELIQUIS 2.5 MG PO (09:03)
[2024-02-11 09:45] LABS: Glycohemoglobin (HgbA1c) 6.6 % (4.0-5.6)
--- NOTE | 2024-02-11 10:51 | W.PN.HOSP.TC ---
Today's Communication/Plan
-
VSE
IVF
IV steroids/IVIG
neuro recs
Assessment / Plan
Assessment / Plan
General: No Apparent Distress
HEENT: NormoCephalic, Anicteric, Moist mucous membranes, PERRLA and Other (wearing glasses); No [place] Conjunctivae
Respiratory: Clear
Cardiac: S1/S2 and Regular Rhythm
GI: Soft, Non Tender, Non Distended and Normal Bowel Sounds
Musculoskeletal: Edema, Left Lower Extremity (Chronic venous stasis ) and Edema, Right Lower Extremity (Chronic venous stasis )
Skin: Warm
Neuro: Awake, AO x 3, No Motor Deficits, Slurred Speech and Other (no nystagmus); No Facial Droop or Tremors
Psych: Calm
#Acute myasthenia gravis flareup with dysphagia
IVIG x 5 days
IV steroids high-dose high dose x 3 days
Swallow evaluation. VSE today.
Speech eval
If persistently fails shallow will need DHT if pt agrees.
Monitor respiratory status closely. NIFs ordered
Monitor O2 saturation closely
Await further neurology recommendation
#OMAR
hx of elevated cr with IVIG/Pheresis in the past
cont with IVF
monitor Bicarb
#Primary hypertension
IV meds as needed
#Hyperlipidemia
Hold p.o. medication
#Diabetes mellitus on insulin pump
Patient removed insulin pump.
Will start patient on basal regimen lantus 15u BID. Insulin sliding scale.
Diabetic nurse petitioner consultation
CAD status post CABG
Without any chest pain.
Off antiplatelets and on Eliquis
Atrial flutter
Continue with Eliquis
If unable to tolerate then start heparin infusion
Patient verbalized understanding with the plan
Hypothyroidism
Hold p.o. Synthroid
If persistent n.p.o. status will start IV meds
Sick sinus syndrome status post pacemaker
History of TIA/CVA
Chronic venous insufficiency
DVT prophylaxis Eliquis
Full code
Anticipated Discharge: > 48 hours
Subjective/Interval History
-
Date of Service: February 11, 2024
remains with slurred speech
on room air
no other focal weakness
had some cough overnight
Objective Data
-
Labs:
Laboratory Results
02/10/24 02/11/24
22:51 07:29
WBC 5.2
Hgb 11.2 L
Hct 32.3 L
Plt Count 158
Sodium 134 L
Potassium 4.1
Chloride 106
Carbon Dioxide 20 L
BUN 38 H
Creatinine 1.3
Glucose 359 H 308 H
Calcium 9.1
Vital Signs:
Vital Signs
Temp Pulse Resp BP Pulse Ox
98.3 F 84 22 118/60 95
02/11/24 07:42 02/11/24 07:42 02/11/24 07:42 02/11/24 07:42 02/11/24 07:42
I&O
02/10/24 02/11/24 02/12/24
06:59 06:59 06:59
Intake Total 798 / 798
Output Total 0 / 0
Balance 798 / 798
[2024-02-11 12:59] LABS: Glucose - Point of Care 376 mg/dl (70-99)
--- NOTE | 2024-02-11 13:10 | CM ---
Patient seen bedside, initial assessment completed. Patient resides independently in a multiple story home, one step to enter. Patient has a rolling walker and cane at home if needed, reports he does not typically use them. Patient reports [facility] VN
in the past, stopped working with patience as he is not home bound. Patient denies SNF history. Patient confirms PCP Dr. Norton, pharmacy [facility]. Patient confirms prescription coverage, denies food insecurities at home. CM will
continue to follow for all discharge planning needs.
Plan; home no needs vs VN, watch PT recommendations.
[2024-02-11] MEDS: SOLU-MEDROL 258 MG IV (13:16)
[2024-02-11] MEDS: NOVOLOG FLEXPEN-HIGH RESISTANCE 12 UNITS SC (13:27)
--- NOTE | 2024-02-11 14:45 | PTOTSP ---
Video Swallow Study
Summary: Patient presents with WFL oral and severe pharyngeal stage of swallowing with aspiration of thin liquids (inconsistent sensory response) and mildly thick liquids (delayed cough response). Etiology of swallowing is felt to be due to MG
exacerbation. Please see patient care note for full details of penetration/aspiration and swallowing physiology.
Recommend:
1. NPO - consider temporary non-oral means
2. Medications via non-oral means
3. Aspiration Risk Hydration Protocol (ARHP) - sparing ice chips after oral care
4. HOB upright to 30 degrees; 90 degrees for ARHP
5. Oral care 3x daily
6. HIGH SCHOOL COMPUTER SCIENCE TEACHER to f/u and determine if/when repeat video swallow study appropriate.
[2024-02-11] MEDS: GAMMAGARD 300 IV (14:46)
--- NOTE | 2024-02-11 15:15 | PTCARENOTE ---
IVIG started at 1445, BP 115/55, HR 75
--- NOTE | 2024-02-11 17:33 | PTCARENOTE ---
Infusion complete, BP 132/61 HR 73, Pt back in bed in POC.
[2024-02-11 17:47] LABS: Glucose - Point of Care 349 mg/dl (70-99)
[2024-02-11] MEDS: NOVOLOG FLEXPEN-HIGH RESISTANCE 10 UNITS SC (17:51)
[2024-02-11 20:38] LABS: APTT 32.4 Sec (23.4-35.0)
[2024-02-11] MEDS: HEPARIN 25000 UNITS/250 ML IV (20:52)
[2024-02-11 22:13] LABS: Glucose - Point of Care 281 mg/dl (70-99)
[2024-02-12] VITALS (13 sets, daily range): BP systolic 119–139; BP diastolic 59–69; PULSE 70; O2SAT 94; BMI 23.0
[2024-02-12 00:48] LABS: Glucose - Point of Care 248 mg/dl (70-99)
[2024-02-12] MEDS: NOVOLOG FLEXPEN-HIGH RESISTANCE 4 UNITS SC ×2 (00:52→06:19)
[2024-02-12 03:17] LABS: % Basophils 0.1 % (0-2); % Immature Granulocytes 0.4 % (0-0.5); % Lymphocytes 5.9 % (20.5-51.1); % Monocytes 3.9 % (1.7-9.3); % Neutrophils 89.7 % (42.2-75.2); Absolute Lymphocytes 0.6 10^3/uL (1.2-3.4); Absolute Monocytes 0.4 10^3/uL (0.1-0.6); Absolute Neutrophils 8.8 10^3/uL (1.4-6.5); Hemoglobin 10.7 g/dL (13.0-18.0); Mean Corp Hgb Conc. 35.7 g/dL (33.0-37.0); Mean Corpuscular Hgb 30.6 pg (27.0-31.0); Mean Corpuscular Volume 85.7 fL (80.0-94.0); Nucleated Red Blood Cells % 0 % (-); Platelet Count 148 10^3/uL (130-400); White Blood Cell Count 9.8 10^3/uL (4.8-10.8)
[2024-02-12 04:04] LABS: Blood Urea Nitrogen 39 mg/dl (9-20); Calcium 8.8 mg/dl (8.4-10.2); Carbon Dioxide 24 mmol/L (22-30); Chloride 108 mmol/L (98-107); Estimated Creatinine Clearance 72 ml/min; Glucose 195 mg/dl (70-99); Potassium 4.6 mmol/L (3.5-5.1); Sodium 134 mmol/L (135-145); eGFR > 60.00
[2024-02-12 06:18] LABS: Glucose - Point of Care 205 mg/dl (70-99)
--- NOTE | 2024-02-12 07:55 | PN.DE.MGMTRT ---
Insulin Management
- -
02/12/2024: Diabetes Management Consult Follow up
Patient admitted 02/09 with myasthenia gravis flare manifesting with dysphagia.
Pt states that he has had difficulty with both solid and liquid food as well as his oral medications.
PMH includes: HTN, HLD, CAD, CHF, hypothyroidism, antibody positive myasthenia gravis, IDDM, A1C 6.6%, down from 7.3% on 12/07/23.
Was using [employer] 780G pump with NovoLog insulin, Quick Sets and CGM prior to admission. He follows with Dr. Subramanian and sees Levar Alvarez.
Pt reports that pump was discontinued on arrival to the ED and was taken home with family.
He has been started on 5 day course of IVIG and a 3 day course of high dose IV steroids-->Steroid induced Hyperglycemia.
Pt awake, alert, oriented, very conversant and pleasant, able to discuss diabetes management. Expresses frustration with readmission.
Patient remains NPO after video swallow.
Glucose range yesterday 281 to 376. Received 15 units lantus BID with high corrective insulin. Will increased BID lantus to 18 units, start Q 6 hour novolog 6 units with low corrective insulin.
Will follow and adjust insulin as needed and resume insulin pump when appropriate.
Diabetes History
- -
Type of Diabetes: 1
Pre-Admission Diabetes Regimen
02/11/24 02/12/24
07 03:08
Creatinine 1.3 0.9
Lab Results
Hemoglobin A1c 6.6 % (4.0-5.6) H 02/11/24 07:29
Insulin Pump Settings
IP Diabetes Regimen
02/11/24 02/11/24 02/11/24
: 12:57 17:46
Glucose 308 H
POC Glucose 376 H 349 H
02/11/24 02/12/24 02/12/24
22:11 00:46 03:08
Glucose 195 H
POC Glucose 281 H 248 H
02/12/24
06:16
Glucose
POC Glucose 205 H
Meal type: Lunch
Meal type: Breakfast
Patient Education
[2024-02-12] MEDS: LANTUS SC (08:35)
[2024-02-12] MEDS: LANTUS 0.179999999999999993 UNITS SC ×2 (08:57→23:27)
[2024-02-12] MEDS: LR 1000 IV ×2 (08:57→20:31)
[2024-02-12] MEDS: ACULAR 0.5% EYE DROPS 1 DROP BOTH EYES ×4 (09:01→23:28)
--- NOTE | 2024-02-12 10:23 | W.PN.NEURO.1 ---
Today's Communication / Plan
-
-Continue IVIG day 3
-Finish steroids day 3 today
-Immune therapies will take some time on the order of several days to help improve the myasthenia symptom
-Would like to avoid p.o. steroids given his diabetes
-Monitor respiratory function but appears he is not heading for any respiratory compromise
-N.p.o., aspiration precautions
-Discussed that it is most likely for the best to pursue NG tube nutrition to help minimize weakening and help with a better recovery
-Discussed with patient that in general needs to wait 63 days after his previous dose of Rystiggio to pursue another course, reasonable to try another course of this after discharge which my office can coordinate
Will continue to follow
Neuro Assessment/Plan
Assessment
History antibody positive myasthenia gravis
Had tried Vyvgart for immune medication but had rash
Recently finished course of Rystiggio for immune medication for myasthenia gravis
Most recent flare of MG was in November 2023 treated with PLEX at that time
Presents with dysphagia prohibiting pill intake, mild dysarthria, little significant weakness of limbs, neck, ptosis or diplopia. No respiratory symptoms. No obvious antecedent no recent illness, procedures, or new medications.
Mild flare of myasthenia gravis is likely.
Subjective/Objective
Subjective Data
Date of Service: February 12, 2024
No acute events, still with speech and swallowing abnormalities, had video swallow yesterday, discussed NG tube for nutrition as for the best given he can weaken and have less optimal recovery if not getting good PO nutrition
Objective Data
Vital Signs
Temp Pulse Resp BP Pulse Ox
97.7 F 71 18 127/69 95
02/12/24 07:40 02/12/24 07:40 02/12/24 07:40 02/12/24 07:40 02/12/24 07:40
Lab Results
02/12/24 03:08
02/12/24 03:08
APTT 115.0 Sec (23.4-35.0) H 02/12/24 03:08
Sodium 134 mmol/L (135-145) L 02/12/24 03:08
Potassium 4.6 mmol/L (3.5-5.1) 02/12/24 03:08
BUN 39 mg/dl (9-20) H 02/12/24 03:08
Glucose 195 mg/dl (70-99) H 02/12/24 03:08
Calcium 8.8 mg/dl (8.4-10.2) 02/12/24 03:08
Patient Allergies
efgartigimod mary-fcab [From Vyvgart] Allergy (Verified 02/10/24 16:00)
Rash
Review of Systems
-
History Source: Patient
All other systems: Reviewed and negative
Constitutional: No Symptoms
EENT: No Symptoms Reported
Respiratory: No Symptoms
Cardiac: No Symptoms
Abdomen/GI: No Symptoms
Genitourinary: No Symptoms
Musculoskeletal: No Symptoms
Skin: No Symptoms
Neuro: Speech Problem and See existing Neuro Note; Negative Weakness
Endocrine: No Symptoms
Hematologic / Lymphatic: No Symptoms
Allergy / Immunology: No Symptoms
Physical Exam
-
General: Comfortable
Eyes: No Ptosis
HEENT: Normocephalic
Neck: No Bruits Bilaterally
Respiratory: Clear to Auscultation
Cardiac: Regular Rhythm
GI: Normal Bowel Sounds
Skin: Unremarkable
Extremities: No Clubbing
Psych: Negative Confused
Extended Neurological Exam
Mood & Affect: Mood Unremarkable and Affect Unremarkable
Attention Span & Concentration: Awake, Alert and Interactive
Memory: Unremarkable
Tremor: Hand Tremor Absent
Speech: Dysarthric; Negative Expressive Aphasia or Receptive Aphasia
Cranial Nerve II: Left Eye: Pupillary Reactivity Unremarkable and Pupillary Size Unremarkable
Cranial Nerve II: Right Eye: Pupillary Reactivity Unremarkable and Pupillary Size Unremarkable
Cranial Nerves III, IV, : Extraocular Movement: Extraocular Movement Full in all Directions
Muscle Strength, Overall: Other (5/5 head and neck flexion and shoulder abduction bilaterally)
Deep Tendon Reflexes: Trace Throughout
Data Reviewed
-
Labs: Report Reviewed
[2024-02-12 10:35] LABS: APTT 125.4 Sec (23.4-35.0)
--- NOTE | 2024-02-12 10:39 | W.PN.HOSP.TC ---
Today's Communication/Plan
-
DHT per GI
TF recs
monitor poc
IVF wtih IVIG
PT/OT
Assessment / Plan
Assessment / Plan
General: No Apparent Distress
HEENT: NormoCephalic, Anicteric, Moist mucous membranes, PERRLA and Other (wearing glasses); No [place] Conjunctivae
Respiratory: Clear
Cardiac: S1/S2 and Regular Rhythm
GI: Soft, Non Tender, Non Distended and Normal Bowel Sounds
Musculoskeletal: Edema, Left Lower Extremity (Chronic venous stasis ) and Edema, Right Lower Extremity (Chronic venous stasis )
Skin: Warm
Neuro: Awake, AO x 3, No Motor Deficits, Slurred Speech and Other (no nystagmus); No Facial Droop or Tremors
Psych: Calm
#Acute myasthenia gravis flareup with dysphagia
IVIG x 5 days
IV steroids high-dose high dose x 3 days
Failed VSE and strict NPO-No meds.
Speech eval
Monitor respiratory status closely. NIFs ordered
Monitor O2 saturation closely
Neurology following
#Dysphagia
Pt agreed for DHT/TF
GI c/s.
nutrition for TF recs
#OMAR
hx of elevated cr with IVIG/Pheresis in the past
cont with IVF
Cr improved.
monitor Bicarb
#Primary hypertension
IV meds as needed
#Hyperlipidemia
Hold p.o. medication
#Diabetes mellitus on insulin pump
Patient removed insulin pump.
Will start patient on basal regimen lantus 15u BID. Insulin sliding scale.
Diabetic nurse petitioner consultation
CAD status post CABG
Without any chest pain.
Off antiplatelets and on Eliquis
Atrial flutter
unable to shallow po meds
Started heparin infusion
Patient verbalized understanding with the plan
Hypothyroidism
Hold p.o. Synthroid
If persistent n.p.o. status will start IV meds
Sick sinus syndrome status post pacemaker
History of TIA/CVA
Chronic venous insufficiency
DVT prophylaxis Eliquis
Full code
Anticipated Discharge: > 48 hours
Subjective/Interval History
-
Date of Service: February 12, 2024
remains with slurred speech and intermittent coughing
denies sob or focal weakness
Objective Data
-
Labs:
Laboratory Results
02/12/24 02/12/24
03:08 09:54
WBC 9.8
Hgb 10.7 L
Hct 30.0 L
Plt Count 148
APTT 115.0 H Pending
Sodium 134 L
Potassium 4.6
Chloride 108 H
Carbon Dioxide 24
BUN 39 H
Creatinine 0.9
Glucose 195 H
Calcium 8.8
Vital Signs:
Vital Signs
Temp Pulse Resp BP Pulse Ox
97.7 F 71 18 127/69 95
02/12/24 07:40 02/12/24 07:40 02/12/24 07:40 02/12/24 07:40 02/12/24 07:40
I&O
02/11/24 02/12/24 02/13/24
06:59 06:59 06:59
Intake Total 798 / 798
Output Total 0 / 0 1250 / 1250
Balance 798 / 798 -1250 / -1250
Data Reviewed
-
Total Time Spent with Patient (in minutes): 55
--- NOTE | 2024-02-12 11:10 | PTCARENOTE ---
Pt will remain on tele while on IVIG per MD May
--- NOTE | 2024-02-12 12:01 | W.PN.GI.CBS2 ---
Today's Communication / Plan
-
DHT placed right nare without difficulty-- confirmed with air insufflation at 60-65 cm
Will check X ray to confirm placement
dietary consult for TF's recs
support given as frustrated with recurrent symptoms
reviewed with nursing
Assessment / Plan
-
Pt is a 78yo presents with acute myasthenia gravis with recurrent flare. Asked to eval for DHT placement
-nutrition
-MG flare
-dysphagia
-OMAR
PLAN:
DHT placed right nare without difficulty-- confirmed with air insufflation at 60-65 cm
Will check X ray to confirm placement
dietary consult for TF's recs
support given as frustrated with recurrent symptoms
reviewed with nursing
Subjective
Subjective
Date of Service: February 12, 2024
asked to see for DHT placement
Objective
Data Reviewed
Laboratory Data:
Laboratory Results
02/12/24 03:08
02/12/24 03:08
Laboratory Results
APTT 125.4 Sec (23.4-35.0) H 02/12/24 09:54
Total Bilirubin 1.1 mg/dl (0.2-1.3) 02/10/24 09:32
AST 32 U/L (17-59) 02/10/24 09:32
ALT 27 U/L (0-50) 02/10/24 09:32
Alkaline Phosphatase 73 U/L (38-126) 02/10/24 09:32
Vital Signs and I&O:
Vital Signs
Temp Pulse Resp BP Pulse Ox
97.7 F 71 18 127/69 96
02/12/24 07:40 02/12/24 07:40 02/12/24 07:40 02/12/24 07:40 02/12/24 08:45
I&O
02/11/24 02/12/2424
06:59 06:59 06:59
Intake Total 798 / 798
Output Total 0 / 0 1250 / 1250
Balance 798 / 798 -1250 / -1250
Physical Exam
Physical Exam
HEENT: Anicteric and Moist mucous membranes
Cardiology: Normal Sinus Rhythm
Pulmonary: Clear and Other (cough with DHT placement )
GI: Soft, Non Distended and Tender
Extremities: No Edema
Neuro: Other (thick speech )
[2024-02-12 12:05] LABS: Glucose - Point of Care 213 mg/dl (70-99)
[2024-02-12] MEDS: SOLU-MEDROL 258 MG IV (12:21)
[2024-02-12] MEDS: NOVOLOG FLEXPEN-MODERATE RESISTANCE 3 UNITS SC (12:22)
[2024-02-12] MEDS: NOVOLOG FLEXPEN 6 UNITS SC ×3 (12:22→23:31)
[2024-02-12] MEDS: GAMMAGARD 300 IV (14:50)
[2024-02-12 17:22] LABS: APTT 101.9 Sec (23.4-35.0)
[2024-02-12 17:30] LABS: Glucose - Point of Care 212 mg/dl (70-99)
[2024-02-12] MEDS: NOVOLOG FLEXPEN-LOW RESISTANCE 2 UNITS SC (17:34)
[2024-02-12 23:18] LABS: Glucose - Point of Care 195 mg/dl (70-99)
[2024-02-12] MEDS: NOVOLOG FLEXPEN-LOW RESISTANCE 1 UNITS SC (23:32)
[2024-02-13] VITALS (15 sets, daily range): BP systolic 123–152; BP diastolic 64–77; PULSE 71; BMI 23.3
[2024-02-13 00:07] LABS: APTT 72.2 Sec (23.4-35.0)
[2024-02-13] MEDS: HEPARIN 25000 UNITS/250 ML IV (00:39)
[2024-02-13 05:34] LABS: Glucose - Point of Care 193 mg/dl (70-99)
[2024-02-13] MEDS: NOVOLOG FLEXPEN 6 UNITS SC ×2 (05:35→13:35)
[2024-02-13] MEDS: NOVOLOG FLEXPEN-LOW RESISTANCE 1 UNITS SC (05:36)
[2024-02-13 06:50] LABS: % Basophils 0.1 % (0-2); % Immature Granulocytes 0.7 % (0-0.5); % Lymphocytes 2.7 % (20.5-51.1); % Monocytes 3.4 % (1.7-9.3); % Neutrophils 93.1 % (42.2-75.2); Absolute Immature Granulocytes 0.1 10^3/uL (0-0.05); Absolute Lymphocytes 0.2 10^3/uL (1.2-3.4); Absolute Monocytes 0.3 10^3/uL (0.1-0.6); Absolute Neutrophils 8.2 10^3/uL (1.4-6.5); Hematocrit 32.1 % (39.0-52.0); Hemoglobin 10.7 g/dL (13.0-18.0); Mean Corp Hgb Conc. 33.3 g/dL (33.0-37.0); Mean Corpuscular Hgb 29.7 pg (27.0-31.0); Mean Corpuscular Volume 89.2 fL (80.0-94.0); Mean Platelet Volume 11.9 fL (7.4-10.4); Nucleated Red Blood Cells % 0 % (-); Platelet Count 120 10^3/uL (130-400); Red Cell Dist. Width 15.1 % (11.5-14.5); White Blood Cell Count 8.8 10^3/uL (4.8-10.8)
[2024-02-13 06:58] LABS: APTT 98.5 Sec (23.4-35.0)
[2024-02-13 07:20] LABS: Blood Urea Nitrogen 28 mg/dl (9-20); Calcium 8.5 mg/dl (8.4-10.2); Carbon Dioxide 25 mmol/L (22-30); Chloride 108 mmol/L (98-107); Estimated Creatinine Clearance 92 ml/min; Glucose 180 mg/dl (70-99); Potassium 4.4 mmol/L (3.5-5.1); Sodium 135 mmol/L (135-145); eGFR > 60.00
--- NOTE | 2024-02-13 07:58 | PN.DE.MGMTRT ---
Insulin Management
- -
02/13/2024: Diabetes Management Consult Follow up
Patient admitted 02/09 with myasthenia gravis flare manifesting with dysphagia.
Pt states that he has had difficulty with both solid and liquid food as well as his oral medications.
PMH includes: HTN, HLD, CAD, CHF, hypothyroidism, antibody positive myasthenia gravis, IDDM, A1C 6.6%, down from 7.3% on 12/07/23.
Was using [employer] 780G pump with NovoLog insulin, Quick Sets and CGM prior to admission. He follows with Dr. Subramanian and sees Levar Alvarez.
Pt reports that pump was discontinued on arrival to the ED and was taken home with family.
He has been started on 5 day course of IVIG and a 3 day course of high dose IV steroids-->Steroid induced Hyperglycemia.
Pt awake, alert, oriented, very conversant and pleasant, able to discuss diabetes management. Expresses frustration with readmission.
Patient remains NPO after video swallow.
Glucose range yesterday 195 to 213. Received 18 units lantus BID with high corrective insulin. Tube feeds started @ 8pm, now up to 60 per hour. Will continue lantus 18 units BID and increase novolog to 10 units Q6 hours with low corrective
insulin.
Will follow and adjust insulin as needed and resume insulin pump when appropriate.
Diabetes History
- -
Type of Diabetes: 1
Pre-Admission Diabetes Regimen
02/13/24
06:32
Creatinine 0.7
Lab Results
Hemoglobin A1c 6.6 % (4.0-5.6) H 02/11/24 07:29
Insulin Pump Settings
IP Diabetes Regimen
02/12/24 02/12/24 02/12/24
12:04 17:29 23:17
Glucose
POC Glucose 213 H 212 H 195 H
06/26/24 06/26/24
05:32 06:32
Glucose 180 H
POC Glucose 193 H
Meal type: Lunch
Meal type: Breakfast
Patient Education
[2024-02-13] MEDS: ACULAR 0.5% EYE DROPS 1 DROP BOTH EYES ×4 (09:29→21:49)
[2024-02-13] MEDS: LANTUS 0.179999999999999993 UNITS SC ×2 (09:29→21:49)
[2024-02-13] MEDS: LR 1000 IV (09:49)
[2024-02-13 11:46] LABS: Glucose - Point of Care 294 mg/dl (70-99)
--- NOTE | 2024-02-13 12:07 | W.PN.HOSP.TC ---
Today's Communication/Plan
-
Monitor vital signs and see plan
Continue with IVIG day 4
Start Synthroid
Continue with tube feeds
Assessment / Plan
Assessment / Plan
General: No Apparent Distress
HEENT: NormoCephalic, Anicteric, Moist mucous membranes, PERRLA and Other (wearing glasses); No [place] Conjunctivae
Respiratory: Clear
Cardiac: S1/S2 and Regular Rhythm
GI: Soft, Non Tender, Non Distended and Normal Bowel Sounds
Musculoskeletal: Edema, Left Lower Extremity (Chronic venous stasis ) and Edema, Right Lower Extremity (Chronic venous stasis )
Skin: Warm
Neuro: Awake, AO x 3, No Motor Deficits, Slurred Speech and Other (no nystagmus); No Facial Droop or Tremors
Psych: Calm
#Acute myasthenia gravis flareup with dysphagia
IVIG x 5 days; day 4/5
s/p IV steroids high-dose high dose x 3 days
Failed VSE and strict NPO-No meds. now with DHT with tube feeds; start Synthroid through DHT
Speech following
Monitor respiratory status closely. NIFs ordered
Monitor O2 saturation closely
Neurology following
#Dysphagia
Pt agreed for DHT/TF
GI following
cw tube feeds
#OMAR
hx of elevated cr with IVIG/Pheresis in the past
cont with IVF
Cr improved.
monitor Bicarb
#Primary hypertension
IV meds as needed
#Hyperlipidemia
Hold p.o. medication
#Diabetes mellitus on insulin pump
Patient removed insulin pump.
cw lantus and aspart Insulin sliding scale.
Diabetic GAS CUTTING MACHINE OPERATOR following
CAD status post CABG
Without any chest pain.
Off antiplatelets and on Eliquis
Atrial flutter
unable to take po meds
Started heparin infusion
Patient verbalized understanding with the plan
Hypothyroidism
start PO synthroid through tube
Sick sinus syndrome status post pacemaker
History of TIA/CVA
Chronic venous insufficiency
DVT prophylaxis Eliquis
Full code
I spent a total of 52 minutes with the patient or on the floor. More than 50% of this time involved counseling and coordination of care.
Anticipated Discharge: > 48 hours
Subjective/Interval History
-
Date of Service: February 13, 2024
denies pain
Objective Data
-
Labs:
Laboratory Results
02/12/24 02/13/24 02/13/24
23:45 06:32 12:30
WBC 8.8
Hgb 10.7 L
Hct 32.1 L
Plt Count 120 L
APTT 72.2 H 98.5 H Pending
Sodium 135
Potassium 4.4
Chloride 108 H
Carbon Dioxide 25
BUN 28 H
Creatinine 0.7
Glucose 180 H
Calcium 8.5
Vital Signs:
Vital Signs
Temp Pulse Resp BP Pulse Ox
97.8 F 72 18 139/65 93
02/13/24 11:01 02/13/24 11:01 02/13/24 11:01 02/13/24 11:01 02/13/24 11:01
I&O
02/12/24 02/13/24 02/14/24
06:59 06:59 06:59
Intake Total 660 / 660
Output Total 1250 / 1250 675 / 675
Balance -1250 / -1250 -675 / -675 660 / 660
--- NOTE | 2024-02-13 12:38 | CM ---
Patient seen bedside, discussed PT recommendations of HH. Patient reports he is not homebound, unsure when he is stable for discharge if he will be homebound for a period of time, will discuss HH closer to discharge. Patient with [place] and tube
feeds, watch for home tube feed needs. CM spoke with nurse, day four of IVIG. CM will continue to follow for all discharge planning needs.
Plan; discuss HH closer to discharge, watch tube feeds.
[2024-02-13 12:48] LABS: APTT 82.6 Sec (23.4-35.0)
[2024-02-13] MEDS: NOVOLOG FLEXPEN-LOW RESISTANCE 3 UNITS SC (13:33)
[2024-02-13] MEDS: GAMMAGARD 300 IV (13:37)
[2024-02-13 17:58] LABS: Glucose - Point of Care 341 mg/dl (70-99)
[2024-02-13] MEDS: NOVOLOG FLEXPEN 10 UNITS SC (17:58)
[2024-02-13] MEDS: NOVOLOG FLEXPEN-LOW RESISTANCE 4 UNITS SC (17:58)
[2024-02-13 21:44] LABS: Glucose - Point of Care 233 mg/dl (70-99)
[2024-02-14] VITALS (17 sets, daily range): BP systolic 108–138; BP diastolic 55–72; PULSE 73; BMI 23.7
[2024-02-14 00:13] LABS: Glucose - Point of Care 265 mg/dl (70-99)
[2024-02-14] MEDS: NOVOLOG FLEXPEN 10 UNITS SC ×2 (00:50→05:35)
[2024-02-14] MEDS: NOVOLOG FLEXPEN-LOW RESISTANCE 3 UNITS SC (00:51)
[2024-02-14] MEDS: SYNTHROID 112 MCG TUBE (05:30)
[2024-02-14] MEDS: NOVOLOG FLEXPEN-LOW RESISTANCE 2 UNITS SC (05:35)
[2024-02-14 05:36] LABS: Glucose - Point of Care 211 mg/dl (70-99)
[2024-02-14] MEDS: HEPARIN 25000 UNITS/250 ML IV (06:07)
[2024-02-14 07:05] LABS: APTT 105.3 Sec (23.4-35.0)
[2024-02-14 07:17] LABS: Carbon Dioxide 28 mmol/L (22-30); Chloride 106 mmol/L (98-107); Estimated Creatinine Clearance 92 ml/min; Sodium 135 mmol/L (135-145); eGFR > 60.00
--- NOTE | 2024-02-14 07:17 | PN.DE.MGMTRT ---
Insulin Management
- -
02/14/2024: Diabetes Management Consult Follow up
Patient admitted 02/09 with myasthenia gravis flare manifesting with dysphagia.
Pt states that he has had difficulty with both solid and liquid food as well as his oral medications.
PMH includes: HTN, HLD, CAD, CHF, hypothyroidism, antibody positive myasthenia gravis, IDDM, A1C 6.6%, down from 7.3% on 12/07/23.
Was using [employer] 780G pump with NovoLog insulin, Quick Sets and CGM prior to admission. He follows with Dr. Subramanian and sees Levar Alvarez.
Pt reports that pump was discontinued on arrival to the ED and was taken home with family.
He has been started on 5 day course of IVIG and a 3 day course of high dose IV steroids-->Steroid induced Hyperglycemia.
Pt awake, alert, oriented, very conversant and pleasant, able to discuss diabetes management. Expresses frustration with readmission but feels his voice is stronger today.
Patient remains NPO after video swallow.
Glucose range yesterday 180 to 341. Received 18 units lantus BID with high corrective insulin. Tube feeds started @ 8pm, now up to 60 per hour. Will increase lantus 20 units BID and increase novolog to 12 units Q6 hours with low corrective
insulin.
Will follow and adjust insulin as needed and resume insulin pump when appropriate.
Diabetes History
- -
Type of Diabetes: 1
Pre-Admission Diabetes Regimen
02/13/24 02/14/24
06:32 06:36
Creatinine 0.7 0.7
Lab Results
Hemoglobin A1c 6.6 % (4.0-5.6) H 02/11/24 07:29
Insulin Pump Settings
IP Diabetes Regimen
02/13/24 02/13/24 02/13/24
06:32 11:45 17:57
Glucose 180 H
POC Glucose 294 H 341 H
02/13/24 02/14/24 02/14/24
21:41 00:07 05:34
Glucose
POC Glucose 233 H 265 H 211 H
Meal type: Dinner
Meal type: Lunch
Meal type: Breakfast
Patient Education
[2024-02-14 08:11] LABS: Blood Urea Nitrogen 28 mg/dl (9-20); Calcium 8.3 mg/dl (8.4-10.2); Glucose 189 mg/dl (70-99)
[2024-02-14 08:55] LABS: % Basophils 0.1 % (0-2); % Immature Granulocytes 0.3 % (0-0.5); % Lymphocytes 8.2 % (20.5-51.1); % Monocytes 11.1 % (1.7-9.3); % Neutrophils 80.3 % (42.2-75.2); Absolute Lymphocytes 0.6 10^3/uL (1.2-3.4); Absolute Monocytes 0.8 10^3/uL (0.1-0.6); Absolute Neutrophils 5.8 10^3/uL (1.4-6.5); Hematocrit 35.2 % (39.0-52.0); Hemoglobin 11.6 g/dL (13.0-18.0); Mean Corpuscular Hgb 30.1 pg (27.0-31.0); Mean Corpuscular Volume 91.2 fL (80.0-94.0); Mean Platelet Volume 12.7 fL (7.4-10.4); Nucleated Red Blood Cells % 0 % (-); Platelet Count 115 10^3/uL (130-400); Red Blood Cell Count 3.86 10^6/uL (4.70-6.10); Red Cell Dist. Width 15.3 % (11.5-14.5); White Blood Cell Count 7.3 10^3/uL (4.8-10.8)
[2024-02-14] MEDS: ACULAR 0.5% EYE DROPS 1 DROP BOTH EYES ×4 (09:41→21:35)
[2024-02-14] MEDS: LANTUS 0.200000000000000011 UNITS SC ×2 (09:41→22:39)
--- NOTE | 2024-02-14 11:54 | W.PN.HOSP.TC ---
Today's Communication/Plan
-
Monitor vitals
See plan
Last day IVIG today
Speech to see
Continue with feeding through NG tube
Continue Synthroid
Lopressor as needed
EKG
Assessment / Plan
Assessment / Plan
General: No Apparent Distress
HEENT: NormoCephalic, Anicteric, Moist mucous membranes, PERRLA and Other (wearing glasses); No [place] Conjunctivae
Respiratory: Clear
Cardiac: S1/S2 and Regular Rhythm
GI: Soft, Non Tender, Non Distended and Normal Bowel Sounds
Musculoskeletal: Edema, Left Lower Extremity (Chronic venous stasis ) and Edema, Right Lower Extremity (Chronic venous stasis )
Skin: Warm
Neuro: Awake, AO x 3, No Motor Deficits, Slurred Speech and Other (no nystagmus); No Facial Droop or Tremors
Psych: Calm
#Acute myasthenia gravis flareup with dysphagia
IVIG x 5 days; day 12/22
s/p IV steroids high-dose high dose x 3 days
Failed VSE and strict NPO-No meds. now with DHT with tube feeds; start Synthroid through DHT
Speech following
Monitor respiratory status closely. NIFs ordered
Monitor O2 saturation closely
Neurology following
#Dysphagia
Pt agreed for DHT/TF
GI following
cw tube feeds
#OMAR
hx of elevated cr with IVIG/Pheresis in the past
cont with IVF
Cr improved.
monitor Bicarb
#Primary hypertension
IV meds as needed
#Hyperlipidemia
Hold p.o. medication
#Diabetes mellitus on insulin pump
Patient removed insulin pump.
cw lantus and aspart Insulin sliding scale.
Diabetic RN TELEPHONE TRIAGE following
CAD status post CABG
Without any chest pain.
Off antiplatelets and on Eliquis
Atrial flutter;unclear chorinicity
Started heparin infusion
Patient verbalized understanding with the plan
hold PO metoprolol for now; cw lorpessor PRN
Hypothyroidism
started PO synthroid through tube
Sick sinus syndrome status post pacemaker
History of TIA/CVA
Chronic venous insufficiency
DVT prophylaxis hep gtt
Full code
I spent a total of 52 minutes with the patient or on the floor. More than 50% of this time involved counseling and coordination of care.
Anticipated Discharge: > 48 hours
Subjective/Interval History
-
Date of Service: February 14, 2024
denies pain
Objective Data
-
Labs:
Laboratory Results
02/14/24
06:36
WBC 7.3
Hgb 11.6 L
Hct 35.2 L
Plt Count 115 L
APTT 105.3 H
Sodium 135
Potassium 4.0
Chloride 106
Carbon Dioxide 28
BUN 28 H
Creatinine 0.7
Glucose 189 H
Calcium 8.3 L
Vital Signs:
Vital Signs
Temp Pulse Resp BP Pulse Ox
97.4 F 71 18 132/71 95
02/14/24 07:55 02/14/24 07:55 02/14/24 07:55 02/14/24 07:55 02/14/24 07:55
I&O
02/13/24 02/14/24 02/15/24
06:59 06:59 06:59
Intake Total 1660 / 1660
Output Total 675 / 675 1395 / 1395
Balance -675 / -675 265 / 265
[2024-02-14 12:24] LABS: Glucose - Point of Care 164 mg/dl (70-99)
[2024-02-14] MEDS: NOVOLOG FLEXPEN 12 UNITS SC ×2 (12:47→17:57)
[2024-02-14] MEDS: NOVOLOG FLEXPEN-LOW RESISTANCE 1 UNITS SC (12:48)
[2024-02-14] MEDS: GAMMAGARD 300 IV (13:57)
--- NOTE | 2024-02-14 15:01 | PTCARENOTE ---
IV IGG started at 1400, tolerating well, 1430 vitals checked and no complaints from patient, rate increased per protocol, at 1445 patient called for nurse, reporting feeling his heart racing, heart rate 100-110 on monitor, BP 124/65, IV IGG
stopped. stayed with patient, within 10 minutes heart rate down to 80's. IV IGG resumed at previous rate. vitals checked at 1500 119/57, 87. patient reporting no issues. IV IGG continued at present rate. plan of care on going.
--- NOTE | 2024-02-14 15:46 | CM ---
CM reviewed chart, last day of IVIG. Patient continues with tube feeds through NG tube. Patient undecided about VN services and whether or not he will be home bound, typically drives. CM will continue to follow for all discharge planning needs.
Plan; no needs vs VN, watch for home tube feed needs.
[2024-02-14 17:42] LABS: Glucose - Point of Care 92 mg/dl (70-99)
[2024-02-14] MEDS: BENADRYL 25 MG PO (17:55)
[2024-02-14] MEDS: MESTINON 30 MG PO ×2 (17:55→21:35)
[2024-02-14] MEDS: DELTASONE 10 MG PO (17:55)
[2024-02-14] MEDS: NOVOLOG FLEXPEN-LOW RESISTANCE SC (17:56)
[2024-02-14 21:14] LABS: Glucose - Point of Care 78 mg/dl (70-99)
[2024-02-14 22:28] LABS: Glucose - Point of Care 95 mg/dl (70-99)
[2024-02-15] VITALS (7 sets, daily range): BP systolic 101–139; BP diastolic 50–70; PULSE 81; BMI 23.9
[2024-02-15] LABS: Glucose - Point of Care 153 mg/dl (70-99)
[2024-02-15] MEDS: NOVOLOG FLEXPEN 12 UNITS SC ×3 (00:21→18:04)
[2024-02-15] MEDS: NOVOLOG FLEXPEN-LOW RESISTANCE 1 UNITS SC (00:22)
[2024-02-15 05:56] LABS: Glucose - Point of Care 236 mg/dl (70-99)
[2024-02-15] MEDS: SYNTHROID 112 MCG TUBE (06:00)
[2024-02-15] MEDS: NOVOLOG FLEXPEN-LOW RESISTANCE 2 UNITS SC (06:01)
[2024-02-15 07:15] LABS: Glucose - Point of Care 210 mg/dl (70-99)
--- NOTE | 2024-02-15 07:48 | PN.DE.MGMTRT ---
Insulin Management
- -
02/15/2024: Diabetes Management F/U:
Patient admitted 02/09 with myasthenia gravis flare manifesting with dysphagia.
Pt states that he has had difficulty with both solid and liquid food as well as his oral medications.
PMH includes: HTN, HLD, CAD, CHF, hypothyroidism, antibody positive myasthenia gravis, IDDM, A1C 6.6%, down from 7.3% on 12/07/23.
Was using [employer] 780G pump with NovoLog insulin, Quick Sets and CGM prior to admission. He follows with Dr. Subramanian and sees Levar Alvarez.
Pt reports that pump was discontinued on arrival to the ED and was taken home with family.
He has been started on 5 day course of IVIG and a 3 day course of high dose IV steroids-->Steroid induced Hyperglycemia.
Pt awake, alert, oriented, very conversant and pleasant, able to discuss diabetes management. Expresses frustration with readmission but feels his voice is getting stronger each day. Patient remains NPO and on tube feeds @60cc/hr.
Yesterday Lantus was increased to 20 units BID and NovoLog to 12 units Q6
Glucose range yesterday 78 to 211. Will make no changes to current regimen: Lantus 22 units BID, NovoLog 12 units Q6 hours with low corrective insulin.
Will follow and adjust insulin as needed and resume insulin pump when appropriate.
Diabetes History
- -
Type of Diabetes: 1
Pre-Admission Diabetes Regimen
Lab Results
Hemoglobin A1c 6.6 % (4.0-5.6) H 02/11/24 07:29
Insulin Pump Settings
IP Diabetes Regimen
02/14/24 02/14/24 02/14/24
06:36 12:23 17:41
Glucose 189 H
POC Glucose 164 H 92
02/14/24 02/14/24 02/14/24
21:13 22:26 23:59
Glucose
POC Glucose 78 95 153 H
02/15/24 02/15/24
05:55 07:14
Glucose
POC Glucose 236 H 210 H
Meal type: Dinner
Meal type: Lunch
Meal type: Breakfast
Patient Education
[2024-02-15 08:45] LABS: % Immature Granulocytes 0.2 % (0-0.5); % Lymphocytes 22.9 % (20.5-51.1); % Monocytes 14.3 % (1.7-9.3); % Neutrophils 61.6 % (42.2-75.2); Absolute Monocytes 0.6 10^3/uL (0.1-0.6); Absolute Neutrophils 2.6 10^3/uL (1.4-6.5); Hematocrit 37.1 % (39.0-52.0); Hemoglobin 12.1 g/dL (13.0-18.0); Mean Corp Hgb Conc. 32.6 g/dL (33.0-37.0); Mean Corpuscular Volume 91.8 fL (80.0-94.0); Mean Platelet Volume 12.3 fL (7.4-10.4); Nucleated Red Blood Cells % 0 % (-); Platelet Count 110 10^3/uL (130-400); Red Blood Cell Count 4.04 10^6/uL (4.70-6.10); Red Cell Dist. Width 14.8 % (11.5-14.5); White Blood Cell Count 4.1 10^3/uL (4.8-10.8)
[2024-02-15 08:47] LABS: APTT 105.8 Sec (23.4-35.0)
[2024-02-15 09:18] LABS: Blood Urea Nitrogen 25 mg/dl (9-20); Carbon Dioxide 33 mmol/L (22-30); Chloride 105 mmol/L (98-107); Estimated Creatinine Clearance 81 ml/min; Glucose 107 mg/dl (70-99); Potassium 3.9 mmol/L (3.5-5.1); Sodium 135 mmol/L (135-145); eGFR > 60.00
[2024-02-15] MEDS: ACULAR 0.5% EYE DROPS 1 DROP BOTH EYES ×4 (09:56→21:55)
[2024-02-15] MEDS: MESTINON 30 MG PO ×4 (09:57→21:55)
[2024-02-15] MEDS: LANTUS 0.200000000000000011 UNITS SC (09:59)
--- NOTE | 2024-02-15 11:01 | W.PN.HOSP.TC ---
Today's Communication/Plan
-
Monitor vital signs and see plan
Speech to see today
Continue with tube feeding through Dobbhoff for now
Continue Synthroid
Continue Mestinon
Continue with IV heparin for now
Assessment / Plan
Assessment / Plan
General: No Apparent Distress
HEENT: NormoCephalic, Anicteric, Moist mucous membranes, PERRLA and Other (wearing glasses); No [place] Conjunctivae
Respiratory: Clear
Cardiac: S1/S2 and Regular Rhythm
GI: Soft, Non Tender, Non Distended and Normal Bowel Sounds
Musculoskeletal: Edema, Left Lower Extremity (Chronic venous stasis ) and Edema, Right Lower Extremity (Chronic venous stasis )
Skin: Warm
Neuro: Awake, AO x 3, No Motor Deficits, Slurred Speech and Other (no nystagmus); No Facial Droop or Tremors
Psych: Calm
#Acute myasthenia gravis flareup with dysphagia
finished IVIG x 5 days
s/p IV steroids high-dose high dose x 3 days
Now on Mestinon
Failed VSE and strict NPO-No meds. now with DHT with tube feeds; started Synthroid through DHT
Speech following
Monitor respiratory status closely. NIFs ordered
Monitor O2 saturation closely
Neurology following
#Dysphagia
Pt agreed for DHT/TF
GI following
cw tube feeds
#OMAR
hx of elevated cr with IVIG/Pheresis in the past
cont with IVF
Cr improved.
monitor Bicarb
#Primary hypertension
IV meds as needed
#Hyperlipidemia
Hold p.o. medication
#Diabetes mellitus on insulin pump
Patient removed insulin pump.
cw lantus and aspart Insulin sliding scale.
Diabetic OCEAN FREIGHT MANAGER following
CAD status post CABG
Without any chest pain.
Off antiplatelets and on Eliquis
Atrial flutter;unclear chorinicity
Started heparin infusion; cw for now since if fails swallowing then would need PEG tube
Patient verbalized understanding with the plan
hold PO metoprolol for now; cw Lopressor PRN
Hypothyroidism
started PO synthroid through tube
Sick sinus syndrome status post pacemaker
History of TIA/CVA
Chronic venous insufficiency
DVT prophylaxis hep gtt
Full code
I spent a total of 52 minutes with the patient or on the floor. More than 50% of this time involved counseling and coordination of care.
Anticipated Discharge: 24 - 48 hours
Subjective/Interval History
-
Date of Service: February 15, 2024
denies pain
Objective Data
-
Labs:
Laboratory Results
02/15/24
08:10
WBC 4.1 L
Hgb 12.1 L
Hct 37.1 L
Plt Count 110 L
APTT 105.8 H
Sodium 135
Potassium 3.9
Chloride 105
Carbon Dioxide 33 H
BUN 25 H
Creatinine 0.8
Glucose 107 H
Calcium 8.0 L
Vital Signs:
Vital Signs
Temp Pulse Resp BP Pulse Ox
97.7 F 75 16 137/70 96
02/15/24 07:45 02/15/24 07:45 02/15/24 07:45 02/15/24 07:45 02/15/24 07:45
I&O
02/14/24 02/15/24 02/16/24
06:59 06:59 06:59
Intake Total 1660 / 1660 0 / 0
Output Total 1395 / 1395 725 / 725
Balance 265 / 265 -725 / -725
[2024-02-15 11:30] LABS: Glucose - Point of Care 103 mg/dl (70-99)
[2024-02-15] MEDS: NOVOLOG FLEXPEN-LOW RESISTANCE SC ×3 (12:27→23:53)
[2024-02-15] MEDS: HEPARIN 25000 UNITS/250 ML IV (13:20)
[2024-02-15] MEDS: NOVOLOG FLEXPEN SC ×2 (13:51→23:52)
[2024-02-15] MEDS: NOVOLOG FLEXPEN 8 UNITS SC (14:00)
--- NOTE | 2024-02-15 15:08 | CM ---
Chart reviewed and visited with Shree. He continues with feeding via dobhoff. MD feels if video swallow is failed again, PEG will be needed.
Shree is not sure if he would accept homecare services, as he is typically very independent and drives regularly.
Plan: Watch for video swallow result and need for PEG.
--- NOTE | 2024-02-15 15:48 | PTOTSP ---
Speech Language Pathology
Pt seen for dysphagia tx. Sitting upright in bed upon arrival. DHT in place. Improved voicing noted this date with adequate secretion management. Trialed ice chips. Pt tolerated 6 without overt difficulty. Trialed sips of water via cup x3
without overt difficulty. Pt with good awareness of swallow function and self limited ice chips 2 days ago when he was having difficulty.
Recommend:
(1) Allow unlimited ice chips as tolerated
(2) Aspiration precautions: sit upright, slow rate, take breaks if any difficulty noted
(3) Continue meds via DHT
(4) WATER SOFTENER SERVICE SUPERVISOR to continue to follow. Will consider upgrading to thin liquids over weekend if tolerates ice chips and plan for potential repeat VSE Saturday 02/17
[2024-02-15 17:30] LABS: Glucose - Point of Care 165 mg/dl (70-99)
[2024-02-15 21:19] LABS: Glucose - Point of Care 100 mg/dl (70-99)
[2024-02-15] MEDS: LANTUS SC (22:40)
[2024-02-15 23:48] LABS: Glucose - Point of Care 100 mg/dl (70-99)
[2024-02-16 03:04] LABS: Glucose - Point of Care 124 mg/dl (70-99)
[2024-02-16 03:41] VITALS: BP 120/62
[2024-02-16 05:01] VITALS: BMI 23.8
[2024-02-16] MEDS: SYNTHROID 112 MCG TUBE (05:01)
[2024-02-16 05:58] LABS: Glucose - Point of Care 108 mg/dl (70-99)
[2024-02-16] MEDS: NOVOLOG FLEXPEN SC (06:00)
[2024-02-16] MEDS: NOVOLOG FLEXPEN-LOW RESISTANCE SC (06:01)
--- NOTE | 2024-02-16 07:10 | W.PN.HOSP.TC ---
Today's Communication/Plan
-
trial clear liquid diet
VSE 02/17
glycemic control
ST/PT/OT
Assessment / Plan
Assessment / Plan
General: No Apparent Distress
HEENT: NormoCephalic, Anicteric, Moist mucous membranes, PERRLA and Other (wearing glasses); No [place] Conjunctivae DHT in place
Respiratory: Clear
Cardiac: S1/S2 and Regular Rhythm
GI: Soft, Non Tender, Non Distended and Normal Bowel Sounds
Musculoskeletal: Edema, Left Lower Extremity (Chronic venous stasis ) and Edema, Right Lower Extremity (Chronic venous stasis )
Skin: Warm
Neuro: Awake, AO x 3, No Motor Deficits, Slurred Speech and Other (no nystagmus); No Facial Droop or Tremors
Psych: Calm
#Acute myasthenia gravis flareup with dysphagia
finished IVIG x 5 days
s/p IV steroids high-dose high dose x 3 days
Now on Mestinon
Failed VSE and strict NPO-No meds. now with DHT with tube feeds; started Synthroid through DHT
Speech following
Monitor respiratory status closely. NIFs ordered
Monitor O2 saturation closely
Neurology following
#Dysphagia
Pt agreed for DHT/TF
GI following
cw tube feeds
02/15 speech eval appreciated noted improvement trial clear liquids started. Pending repeat VSE 01/18
#OMAR
hx of elevated cr with IVIG/Pheresis in the past
cont with IVF
Cr improved.
monitor Bicarb
#Primary hypertension
IV meds as needed
#Hyperlipidemia
Hold p.o. medication
#Diabetes mellitus on insulin pump
Patient removed insulin pump.
cw lantus and aspart Insulin sliding scale.
Diabetic HOSPICE HOME CARE COORDINATOR following
CAD status post CABG
Without any chest pain.
Off antiplatelets and on Eliquis
Atrial flutter;unclear chorinicity
Started heparin infusion; cw for now since if fails swallowing then would need PEG tube
Patient verbalized understanding with the plan
hold PO metoprolol for now; cw Lopressor PRN
Hypothyroidism
started PO synthroid through tube
Sick sinus syndrome status post pacemaker
History of TIA/CVA
Chronic venous insufficiency
DVT prophylaxis hep gtt
Full code
I spent a total of 52 minutes with the patient or on the floor. More than 50% of this time involved counseling and coordination of care.
Anticipated Discharge: 24 - 48 hours
Subjective/Interval History
-
Date of Service: February 16, 2024
Reports feeling well, feels strength has improved. Denies new acute issues at this time.
Objective Data
-
Labs:
Laboratory Results
02/16/24 02/16/24
06:00 08:00
WBC Pending
Hgb Pending
Hct Pending
Plt Count Pending
APTT Pending
Sodium Pending
Potassium Pending
Chloride Pending
Carbon Dioxide Pending
BUN Pending
Creatinine Pending
Glucose Pending
Calcium Pending
Vital Signs:
Vital Signs
Temp Pulse Resp BP Pulse Ox
97.8 F 70 18 120/62 94
02/16/24 03:41 02/16/24 03:41 02/16/24 03:41 02/16/24 03:41 02/16/24 03:41
I&O
02/15/24 02/16/24 02/17/24
06:59 06:59 06:59
Intake Total 0 / 0
Output Total 725 / 725 300 / 300
Balance -725 / -725 -300 / -300
[2024-02-16 07:15] VITALS: BP 118/62
[2024-02-16] MEDS: ACULAR 0.5% EYE DROPS 1 DROP BOTH EYES ×4 (09:29→22:01)
[2024-02-16] MEDS: MESTINON 30 MG PO ×4 (09:29→22:02)
[2024-02-16 09:44] LABS: % Basophils 0.2 % (0-2); % Eosinophils 2.5 % (0-6); % Immature Granulocytes 0.4 % (0-0.5); % Lymphocytes 23.6 % (20.5-51.1); % Neutrophils 59.3 % (42.2-75.2); Absolute Eosinophils 0.1 10^3/uL (0-0.7); Absolute Lymphocytes 1.1 10^3/uL (1.2-3.4); Absolute Monocytes 0.7 10^3/uL (0.1-0.6); Absolute Neutrophils 2.8 10^3/uL (1.4-6.5); Hematocrit 37.5 % (39.0-52.0); Hemoglobin 12.4 g/dL (13.0-18.0); Mean Corp Hgb Conc. 33.1 g/dL (33.0-37.0); Mean Corpuscular Volume 90.8 fL (80.0-94.0); Nucleated Red Blood Cells % 0 % (-); Platelet Count 86 10^3/uL (130-400); Red Blood Cell Count 4.13 10^6/uL (4.70-6.10); Red Cell Dist. Width 14.6 % (11.5-14.5); White Blood Cell Count 4.7 10^3/uL (4.8-10.8)
[2024-02-16 10:14] LABS: Blood Urea Nitrogen 25 mg/dl (9-20); Calcium 8.2 mg/dl (8.4-10.2); Carbon Dioxide 27 mmol/L (22-30); Chloride 105 mmol/L (98-107); Estimated Creatinine Clearance 81 ml/min; Glucose 140 mg/dl (70-99); Potassium 4.4 mmol/L (3.5-5.1); Sodium 133 mmol/L (135-145); eGFR > 60.00
[2024-02-16 11:00] LABS: APTT 159.8 Sec (23.4-35.0)
[2024-02-16] MEDS: LANTUS SC ×2 (11:17→23:03)
[2024-02-16 11:21] VITALS: BP 123/64
[2024-02-16 11:48] LABS: Glucose - Point of Care 252 mg/dl (70-99)
--- NOTE | 2024-02-16 11:58 | PTOTSP ---
Speech Therapy
Swallowing Function: INSTRUMENT CHECKER observed patient with several ice chips in which patient appeared to tolerate as he did not exhibit any overt s/sx of aspiration. Patient was then challenged and observed with thin liquid sips via cup in which patient
appeared to tolerate as he did not exhibit any overt clinical s/sx of aspiration and his vocal quality remained WNL during the trials.
Given the above information, recommend trial of advancing his diet to liquid diet at the time with repeat VSE anticipated for 02/18/24.
Recommendations:
1) Trial of liquid diet with tube feeds
2) Unlimited ice chips
3) Medications not by mouth
4) Aspiration precautions
5) Repeat VSE
Plan: INSTRUMENT CHECKER will continue to follow; pending hospitalization.
[2024-02-16] MEDS: NOVOLOG FLEXPEN-LOW RESISTANCE 3 UNITS SC (13:36)
[2024-02-16] MEDS: LANTUS 0.200000000000000011 UNITS SC (13:37)
--- NOTE | 2024-02-16 14:21 | CM ---
Patient seen, reports he is now trailing liquids. Patient reports he is having a VSE on Sunday. Patient hopeful to return home if passes VSE. CM will continue to follow for all discharge planning needs.
Plan; watch VSE for Sunday, patient uncertain about VN services.
[2024-02-16 15:32] VITALS: BP 111/52
[2024-02-16 16:36] LABS: Glucose - Point of Care 334 mg/dl (70-99)
[2024-02-16] MEDS: NOVOLOG FLEXPEN 12 UNITS SC (16:43)
[2024-02-16] MEDS: NOVOLOG FLEXPEN-LOW RESISTANCE 4 UNITS SC (16:43)
[2024-02-16 18:31] LABS: APTT 72.2 Sec (23.4-35.0)
[2024-02-16 21:15] LABS: Glucose - Point of Care 64 mg/dl (70-99)
[2024-02-16 21:45] LABS: Glucose - Point of Care 105 mg/dl (70-99)
[2024-02-16] MEDS: HEPARIN 25000 UNITS/250 ML IV (22:02)
[2024-02-16 22:42] LABS: Glucose - Point of Care 61 mg/dl (70-99)
[2024-02-16 23:03] LABS: Glucose - Point of Care 82 mg/dl (70-99)
[2024-02-16] MEDS: DEXTROSE 50% SYRINGE 12.5 GRAMS IV (23:03)
[2024-02-16 23:28] LABS: Glucose - Point of Care 136 mg/dl (70-99)
[2024-02-16 23:46] VITALS: BP 120/58
[2024-02-17 01:06] LABS: Glucose - Point of Care 111 mg/dl (70-99)
--- NOTE | 2024-02-17 01:34 | PTCARENOTE ---
At 2109 Pt rang call derrick, stating he was feeling weak, accucheck 64- gave apple juice. At 2142 sugar was 105. Around 2229 pt rang again stating he was feeling weak- accucheck 61- gave juice and rechecked at 2299 went to 81. Reached out to BRAKE OPERATOR-
holding nighttime Lantus and gave � glucose IV. Sugar now 136. Will continue to monitor.
[2024-02-17 01:52] LABS: APTT 149.1 Sec (23.4-35.0)
[2024-02-17 03:08] LABS: Glucose - Point of Care 68 mg/dl (70-99)
[2024-02-17] MEDS: DEXTROSE 50% SYRINGE 12.5 GRAMS IV (03:10)
[2024-02-17 03:34] LABS: Glucose - Point of Care 151 mg/dl (70-99)
[2024-02-17] MEDS: SYNTHROID 112 MCG TUBE (04:29)
[2024-02-17 05:05] VITALS: BMI 24.0
[2024-02-17 05:26] LABS: Glucose - Point of Care 91 mg/dl (70-99)
--- NOTE | 2024-02-17 06:31 | W.PN.HOSP.TC ---
Today's Communication/Plan
-
cont mestinon as per neuro
clear liquid diet, trickle feeds
follow up repeat VSE AM Sunday, keep DHT for now pending results
glycemic control, lantus reduced to HS and premeal insulin put on hold d/t periodic hypoglycemia
Assessment / Plan
Assessment / Plan
General: No Apparent Distress
HEENT: NormoCephalic, Anicteric, Moist mucous membranes, PERRLA and Other (wearing glasses); No [place] Conjunctivae DHT in place
Respiratory: Clear
Cardiac: S1/S2 and Regular Rhythm
GI: Soft, Non Tender, Non Distended and Normal Bowel Sounds
Musculoskeletal: Edema, Left Lower Extremity (Chronic venous stasis ) and Edema, Right Lower Extremity (Chronic venous stasis )
Skin: Warm
Neuro: Awake, AO x 3, No Motor Deficits, Slurred Speech and Other (no nystagmus); No Facial Droop or Tremors
Psych: Calm
#Acute myasthenia gravis flareup with dysphagia
finished IVIG x 5 days
s/p IV steroids high-dose high dose x 3 days
Now on Mestinon
Failed VSE and strict NPO-No meds. now with DHT with tube feeds; started Synthroid through DHT
Speech following
Monitor respiratory status closely. NIFs ordered
Monitor O2 saturation closely
Neurology eval appreciated
#Dysphagia
Pt agreed for DHT/TF
GI following
cw tube feeds
02/15 speech eval appreciated noted improvement trial clear liquids started. Pending repeat VSE 01/18
-trickle feeds, hold for meals
-possible advancement in diet pending repeat VSE 02/17 keep DHT for now pending results
#OMAR
hx of elevated cr with IVIG/Pheresis in the past
cont with IVF
Cr improved.
monitor Bicarb
#Primary hypertension
IV meds as needed
#Hyperlipidemia
Hold p.o. medication
#Diabetes mellitus on insulin pump
Patient removed insulin pump.
cw lantus and aspart Insulin sliding scale.
Diabetic RAILCAR CARPENTER following
due to periodic hypoglycemia Lantus reduced from BID dosing to HS (patient was refusing BID dosing to begin with), premeal insulin put on hold, sliding scale insulin continued
CAD status post CABG
Without any chest pain.
Off antiplatelets and on Eliquis
Atrial flutter;unclear chorinicity
Started heparin infusion; cw for now since if fails swallowing then would need PEG tube (pending repeat VSE 02/17)
Patient verbalized understanding with the plan
hold PO metoprolol for now; cw Lopressor PRN
Hypothyroidism
started PO synthroid through tube
Sick sinus syndrome status post pacemaker
History of TIA/CVA
Chronic venous insufficiency
PT/OT appreciated home health
DVT prophylaxis hep gtt
Full code
I spent a total of 52 minutes with the patient or on the floor. More than 50% of this time involved counseling and coordination of care.
Anticipated Discharge: 24 - 48 hours
Subjective/Interval History
-
Date of Service: February 17, 2024
Seen and examined at bedside in no acute distress sitting up comfortably in chair. Reports overall feeling well. Strength improved.
Objective Data
-
Labs:
Laboratory Results
02/16/24 02/17/24 02/17/24
18:11 01:18 06:00
WBC Pending
Hgb Pending
Hct Pending
Plt Count Pending
APTT 72.2 H 149.1 H
Sodium Pending
Potassium Pending
Chloride Pending
Carbon Dioxide Pending
BUN Pending
Creatinine Pending
Glucose Pending
Calcium Pending
02/17/24
07:15
WBC
Hgb
Hct
Plt Count
APTT Pending
Sodium
Potassium
Chloride
Carbon Dioxide
BUN
Creatinine
Glucose
Calcium
Vital Signs:
Vital Signs
Temp Pulse Resp BP Pulse Ox
97.4 F 73 18 120/58 97
02/16/24 23:46 02/16/24 23:46 02/16/24 23:46 02/16/24 23:46 02/16/24 23:46
I&O
02/15/24 02/16/24 02/17/24
06:59 06:59 06:59
Intake Total 0 / 0 720 / 720
Output Total 725 / 725 300 / 300 1350 / 1350
Balance -725 / -725 -300 / -300 -630 / -630
[2024-02-17 07:06] LABS: Glucose - Point of Care 73 mg/dl (70-99)
[2024-02-17 07:30] VITALS: BP 128/64
[2024-02-17 07:30] LABS: Glucose - Point of Care 80 mg/dl (70-99)
[2024-02-17 07:40] LABS: APTT 99.4 Sec (23.4-35.0); Blood Urea Nitrogen 22 mg/dl (9-20); Calcium 7.9 mg/dl (8.4-10.2); Carbon Dioxide 32 mmol/L (22-30); Chloride 104 mmol/L (98-107); Estimated Creatinine Clearance 81 ml/min; Glucose 58 mg/dl (70-99); Magnesium 2.1 mg/dl (1.6-2.3); Potassium 4.2 mmol/L (3.5-5.1); Sodium 135 mmol/L (135-145); eGFR > 60.00
[2024-02-17 07:49] LABS: Hematocrit 31.4 % (39.0-52.0); Hemoglobin 10.8 g/dL (13.0-18.0); Mean Corp Hgb Conc. 34.4 g/dL (33.0-37.0); Mean Corpuscular Hgb 30.5 pg (27.0-31.0); Mean Corpuscular Volume 88.7 fL (80.0-94.0); Mean Platelet Volume 12.4 fL (7.4-10.4); Platelet Count 110 10^3/uL (130-400); Red Blood Cell Count 3.54 10^6/uL (4.70-6.10); Red Cell Dist. Width 14.5 % (11.5-14.5); White Blood Cell Count 4.4 10^3/uL (4.8-10.8)
[2024-02-17 07:50] LABS: Phosphorus 4.2 mg/dl (2.5-4.5)
[2024-02-17] MEDS: NOVOLOG FLEXPEN-LOW RESISTANCE SC (09:50)
[2024-02-17] MEDS: LANTUS SC (09:53)
[2024-02-17] MEDS: MESTINON 30 MG PO (10:00)
[2024-02-17] MEDS: ACULAR 0.5% EYE DROPS 1 DROP BOTH EYES ×4 (10:01→21:50)
[2024-02-17] MEDS: FLUSH (NSS) 2 FLUSH IV (11:04)
[2024-02-17] MEDS: CALCIUM GLUCONATE 100 IV (11:04)
--- NOTE | 2024-02-17 11:14 | CM ---
Patient seen bedside, reports no needs to CM at this time. VSE scheduled for tomorrow. CM will continue to follow for all discharge planning needs.
Plan; watch PT/OT, patient undecided on VN referral. Watch for VSE Sunday.
[2024-02-17 11:39] LABS: Glucose - Point of Care 185 mg/dl (70-99)
[2024-02-17] MEDS: NOVOLOG FLEXPEN-LOW RESISTANCE 1 UNITS SC (13:01)
[2024-02-17 13:58] LABS: APTT 94.9 Sec (23.4-35.0)
[2024-02-17 15:37] VITALS: BP 111/59
[2024-02-17 17:03] LABS: Glucose - Point of Care 320 mg/dl (70-99)
[2024-02-17] MEDS: NOVOLOG FLEXPEN-LOW RESISTANCE 4 UNITS SC (18:01)
[2024-02-17] MEDS: MESTINON 60 MG PO ×2 (18:01→21:49)
[2024-02-17 21:37] LABS: Glucose - Point of Care 355 mg/dl (70-99)
[2024-02-17] MEDS: LANTUS 0.200000000000000011 UNITS SC (21:50)
--- NOTE | 2024-02-17 22:19 | W.PN.NEURO.1 ---
Today's Communication / Plan
-
Continue Mestinon at higher strength
Switch to PO mechanical soft
Rehab
F/u Neurology OP for Rystiggo
Neuro Assessment/Plan
Assessment
Antibody positive myasthenia gravis
Finished course of Rystiggio for immune medication for myasthenia gravis
Most recent flare of MG was in November 2023 treated with PLEX at that time
Presents with dysphagia prohibiting pill intake, mild dysarthria, little significant weakness of limbs, neck, ptosis or diplopia. No respiratory symptoms. No obvious antecedent no recent illness, procedures, or new medications.
Mild flare of myasthenia gravis is likely.
Plan
Increase Mestinon 60mg TID
Video Swallow evaluation in AM
Discontinue NG tube
PT and transfer to Rehab
Subjective/Objective
Subjective Data
Date of Service: February 17, 2024
Pat doing better on Mestinon 30mg QID. Speech has improved and able to swallow liquids without aspiration
Completed 5 day course of IVIg on February 13
Completed 3 day course if IV Solumedrol
Objective Data
Vital Signs
Temp Pulse Resp BP Pulse Ox
36.8 C 78 16 111/59 99
02/17/24 15:37 02/17/24 15:37 02/17/24 15:37 02/17/24 15:37 02/17/24 15:37
Lab Results
02/17/24 07:04
02/17/24 07:04
APTT 94.9 Sec (23.4-35.0) H 02/17/24 13:40
Sodium 135 mmol/L (135-145) 02/17/24 07:04
Potassium 4.2 mmol/L (3.5-5.1) 02/17/24 07:04
BUN 22 mg/dl (9-20) H 02/17/24 07:04
Glucose 58 mg/dl (70-99) L 02/17/24 07:04
Calcium 7.9 mg/dl (8.4-10.2) L 02/17/24 07:04
Phosphorus 4.2 mg/dl (2.5-4.5) 02/17/24 07:04
Patient Allergies
efgartigimod mary-fcab [From [facility]] Allergy (Verified 02/10/24 16:00)
Rash
Review of Systems
-
All other systems: Reviewed and negative
Constitutional: No Symptoms
EENT: No Symptoms Reported
Respiratory: No Symptoms
Cardiac: No Symptoms
Abdomen/GI: No Symptoms
Genitourinary: No Symptoms
Musculoskeletal: No Symptoms
Skin: No Symptoms
Neuro: See existing Neuro Note
Hematologic / Lymphatic: No Symptoms
Allergy / Immunology: No Symptoms
Physical Exam
-
General: Well Developed and No Apparent Distress
Eyes: Unremarkable
HEENT: Normocephalic, Atraumatic and Unremarkable
Neck: No Bruits Bilaterally and Full Range of Motion
Respiratory: Clear to Auscultation
Cardiac: Regular Rhythm
GI: Normal Bowel Sounds
Skin: Unremarkable
Extremities: No Clubbing
Psych: Unremarkable
Extended Neurological Exam
Mood & Affect: Mood Unremarkable
Attention Span & Concentration: Awake, Alert, No Difficulty with 2 Step Request and No Problem with Right/Left Differentiation
Memory: Unremarkable and Able to Recall
Tremor: Hand Tremor Absent and Head Tremor Absent
Involuntary Movement: None
Speech: Quality Unremarkable and Quantity Unremarkable
Cranial Nerve II: Left Eye: Pupillary Reactivity Unremarkable, Pupillary Size Unremarkable and Visual Nelson Grossly Intact
Cranial Nerve II: Right Eye: Pupillary Reactivity Unremarkable, Pupillary Size Unremarkable and Visual Nelson Intact
Cranial Nerves III, IV, : Extraocular Movement: Extraocular Movement Full in all Directions and Grossly Intact
Cranial Nerve V: Facial Sensation: Facial Sensation Unremarkable to Cold, Intact to Pin Prick and Intact to Light Touch
Cranial Nerve VII: Facial Symmetry: Normal Facial Symmetry
Cranial Nerve VIII: Hearing: Unremarkable Hearing to Normal Conversational Volume
Cranial Nerves IX, X: Palate Movement: Palate Elevation Symmetric
Cranial Nerve XI: Shoulder Shrug: Unremarkable
Cranial Nerve XII: Tongue Protusion: Midline
Muscle Strength, Overall: Reduced Throughout
Muscle Bulk & Tone: Bulk Unremarkable and Tone Unremarkable
Pronator Drift: No Drift in Upper Extremities and No Drift in Lower Extremities
Deep Tendon Reflexes: Trace Throughout
Cold Sensation: Unremarkable
Vibration Sensation: Unremarkable
Touch Sensation: Unremarkable
Coordination: [id number] Testing Unremarkable and Reaches for Objects without Difficulty
Babinski Sign: Absent Bilaterally
Gait & Station: Up from Seated Without Problem
[2024-02-17 23:24] VITALS: BP 131/61
[2024-02-18 03:00] LABS: Glucose - Point of Care 319 mg/dl (70-99)
[2024-02-18] MEDS: SYNTHROID 112 MCG TUBE (05:36)
[2024-02-18 06:00] VITALS: BMI 23.6
[2024-02-18 07:15] VITALS: BP 135/76
[2024-02-18 07:44] LABS: Glucose - Point of Care 242 mg/dl (70-99)
[2024-02-18 08:15] VITALS: BP 135/76
--- NOTE | 2024-02-18 08:28 | PN.DE.MGMTRT ---
Insulin Management
- -
02/18/2024: Diabetes Management F/U:
Patient admitted 02/09 with myasthenia gravis flare manifesting with dysphagia.
Pt states that he has had difficulty with both solid and liquid food as well as his oral medications.
PMH includes: HTN, HLD, CAD, CHF, hypothyroidism, antibody positive myasthenia gravis, IDDM, A1C 6.6%, down from 7.3% on 12/07/23.
Was using [employer] 780G pump with NovoLog insulin, Quick Sets and CGM prior to admission. He follows with Dr. Subramanian and sees Levar Alvarez.
Pt reports that pump was discontinued on arrival to the ED and was taken home with family.
He has been started on 5 day course of IVIG and a 3 day course of high dose IV steroids-->Steroid induced Hyperglycemia.
Pt awake, alert, oriented, sitting up in chair, very conversant and pleasant, able to discuss diabetes management.
Lantus dose was reduced and AC NovoLog was discontinued due to recurrent hypoglycemia over the weekend.
Pt for repeat video swallow eval today and has been NPO since [place].
Pt was started on liquid diet and tube feeds reduced to 25cc/hr yesterday.
Glucose trended up to 355 @ HS last night, with a 3AM blood sugar of 319 and 242 fasting this AM.
Will resume AC NovoLog at reduced dose of 8 units and change Lantus 20 units adm time to AM
Will follow and adjust insulin as needed.
Plan to HOLD AM Lantus dose and resume insulin pump when appropriate- ideally tomorrow morning
Diabetes History
- -
Type of Diabetes: 1
Pre-Admission Diabetes Regimen
Lab Results
Hemoglobin A1c 6.6 % (4.0-5.6) H 02/11/24 07:29
Insulin Pump Settings
IP Diabetes Regimen
02/17/24 02/17/24 02/17/24
11:38 17:02 21:35
POC Glucose 185 H 320 H 355 H
02/18/24 02/18/24
02:57 07:42
POC Glucose 319 H 242 H
Meal type: Dinner
Meal type: Lunch
Meal type: Breakfast
Amount consumed: 100%
Amount consumed: 100%
Amount consumed: 100%
Patient Education
[2024-02-18] MEDS: NOVOLOG FLEXPEN-LOW RESISTANCE 2 UNITS SC (08:39)
[2024-02-18] MEDS: MESTINON 60 MG PO ×3 (08:40→21:16)
[2024-02-18] MEDS: ACULAR 0.5% EYE DROPS 1 DROP BOTH EYES ×4 (08:40→21:17)
--- NOTE | 2024-02-18 10:00 | PTOTSP ---
Speech Language Pathology
VIDEOFLUOROSCOPIC SWALLOWING EXAMINATION (VSE) completed. Overall, pt with significantly improved swallow function compared to previous VSE this admission. Some trace penetration noted, but no aspiration noted. Trace to mild/mod vallecular
residue, which partially cleared with spontaneous multiple swallows and a liquid wash.
Recommend:
(1) Initiate regular solids/thin liquids
(2) Aspiration precautions: sit upright, slow rate, single sips via cup or straw, frequent sips of liquids with meals, occasional throat clear/reswallow
(3) Meds as tolerated
(4) Outpatient dysphagia tx at discharge
(5) PRODUCTION TEAM ADVISOR to continue to follow
[2024-02-18 10:02] LABS: Hematocrit 33.6 % (39.0-52.0); Hemoglobin 11.5 g/dL (13.0-18.0); Mean Corp Hgb Conc. 34.2 g/dL (33.0-37.0); Mean Corpuscular Hgb 30.4 pg (27.0-31.0); Mean Corpuscular Volume 88.9 fL (80.0-94.0); Mean Platelet Volume 12.2 fL (7.4-10.4); Platelet Count 118 10^3/uL (130-400); Red Blood Cell Count 3.78 10^6/uL (4.70-6.10); Red Cell Dist. Width 14.1 % (11.5-14.5); White Blood Cell Count 3.6 10^3/uL (4.8-10.8)
[2024-02-18 10:14] LABS: APTT 92.5 Sec (23.4-35.0)
[2024-02-18 10:31] LABS: Blood Urea Nitrogen 17 mg/dl (9-20); Calcium 8.6 mg/dl (8.4-10.2); Carbon Dioxide 27 mmol/L (22-30); Chloride 101 mmol/L (98-107); Estimated Creatinine Clearance 92 ml/min; Glucose 229 mg/dl (70-99); Phosphorus 4.7 mg/dl (2.5-4.5); Potassium 4.6 mmol/L (3.5-5.1); Sodium 131 mmol/L (135-145); eGFR > 60.00
[2024-02-18] MEDS: LANTUS 0.200000000000000011 UNITS SC (10:35)
[2024-02-18] MEDS: NOVOLOG FLEXPEN 8 UNITS SC ×3 (10:35→17:00)
--- NOTE | 2024-02-18 11:23 | CM ---
Patient seen bedside, reports he passed his VSE. CM discussed VN for patient upon discharge, patient reports he does not feel he needs VN at this time, is not home bound. CM discussed patient can set up VN through PCP once discharged if changes his
mind. Patient reports he has a powder room on the first floor and can sleep in his lazy boy recliner if needed. Patient reports he will be taking it easy once he returns home. Patient hopeful to discharge home tomorrow. CM will continue to follow
for all discharge planning needs.
Plan; home no needs, declining VN/not homebound.
--- NOTE | 2024-02-18 11:41 | PTCARENOTE ---
Patient had follow up video swallow with good results. DHT removed without incident as per MD. Patient ordered regular diet with thin liquids.
--- NOTE | 2024-02-18 12:15 | W.PN.HOSP.TC ---
Today's Communication/Plan
-
restart diet
eliquis tonight at 8pm and stop hep gtt
monitor diet tolerance
Assessment / Plan
Assessment / Plan
General: No Apparent Distress
HEENT: NormoCephalic, Anicteric, Moist mucous membranes, PERRLA and Other (wearing glasses); No [place] Conjunctivae DHT in place
Respiratory: Clear
Cardiac: S1/S2 and Regular Rhythm
GI: Soft, Non Tender, Non Distended and Normal Bowel Sounds
Musculoskeletal: Edema, Left Lower Extremity (Chronic venous stasis ) and Edema, Right Lower Extremity (Chronic venous stasis )
Skin: Warm
Neuro: Awake, AO x 3, No Motor Deficits, Slurred Speech and Other (no nystagmus); No Facial Droop or Tremors
Psych: Calm
#Acute myasthenia gravis flareup with dysphagia
finished IVIG x 5 days
s/p IV steroids high-dose high dose x 3 days
Now on Mestinon 60mg TID
Passed VSE on second term-okay for regular diet. Pt stated he will start with soft food and slowly uptitrate his diet consistency.
Speech following
Monitor respiratory status closely. NIFs ordered
Monitor O2 saturation closely
Neurology eval appreciated
#Dysphagia
Pt agreed for DHT/TF
GI following
cw tube feeds
02/15 speech eval appreciated noted improvement trial clear liquids started. Pending repeat VSE 01/18
-Passed and started on regular diet
#OMAR
hx of elevated cr with IVIG/Pheresis in the past
cont with IVF
Cr improved.
monitor Bicarb
#Primary hypertension
Metoprolol
BP otherwise well controlled
may need to adjust/Dc Norvasc/lisinopril on DC.
#Hyperlipidemia
restart tomm
#Diabetes mellitus on insulin pump
Patient removed insulin pump.
cw lantus and aspart Insulin sliding scale.
Diabetic HEALTH OUTCOMES LIAISON following
due to periodic hypoglycemia Lantus reduced from BID dosing to HS (patient was refusing BID dosing to begin with), premeal insulin put on hold, sliding scale insulin continued
Probably needs to be restated on pump at home or here.
CAD status post CABG
Without any chest pain.
Off antiplatelets and on Eliquis
Atrial flutter;unclear chronicity
DC heparin gtt.
Elevated [id number] score. Cr wnl. Wt >60kg. Eliquis 5mg BID dose adjusted.
Restart po metoprolol
Hypothyroidism
started PO synthroid through tube
Sick sinus syndrome status post pacemaker
History of TIA/CVA
Chronic venous insufficiency
PT/OT appreciated home health
DVT prophylaxis hep gtt
Full code
Anticipated Discharge: Within 24 hours
Subjective/Interval History
-
Date of Service: February 18, 2024
states speech has improved
passed VSE earlier today
Objective Data
-
Labs:
Laboratory Results
02/18/24
09:17
WBC 3.6 L
Hgb 11.5 L
Hct 33.6 L
Plt Count 118 L
APTT 92.5 H
Sodium 131 L
Potassium 4.6
Chloride 101
Carbon Dioxide 27
BUN 17
Creatinine 0.7
Glucose 229 H
Calcium 8.6
Vital Signs:
Vital Signs
Temp Pulse Resp BP Pulse Ox
97.6 F 74 16 135/76 99
02/18/24 07:15 02/18/24 07:15 02/18/24 07:15 02/18/24 07:15 02/18/24 07:15
I&O
02/17/24 02/18/24 02/19/24
06:59 06:59 06:59
Intake Total 720 / 720 1750 / 1750
Output Total 1350 / 1350 2895 / 2895
Balance -630 / -630 -1145 / -1145
Data Reviewed
-
Total Time Spent with Patient (in minutes): 55
[2024-02-18 12:17] LABS: Glucose - Point of Care 268 mg/dl (70-99)
[2024-02-18] MEDS: NOVOLOG FLEXPEN-LOW RESISTANCE 3 UNITS SC (12:36)
--- NOTE | 2024-02-18 12:43 | PN.CDI ---
CDI
- -
CDI:
Physician Documentation Request
Admit Date: 02/10/24 12:51
Dear Doctor Yadira,
Please review the following and provide your response in the progress notes.
Clinical Indicators:
Pt admitted with Myasthenia Gravis Exacerbation
Trended CBC labs below
02/15/24 02/16/24 02/17/24
08:10 08:50 07:04
WBC 4.1 L 4.7 L 4.4 L
Hgb 12.1 L 12.4 L 10.8 L
Hct 37.1 L 37.5 L 31.4 L
Plt Count 110 L 86 L D 110 L D
02/18/24
09:17
WBC 3.6 L
Hgb 11.5 L
Hct 33.6 L
Plt Count 118 L
Please provide a diagnosis for the above lab findings:
Pancytopenia
Abnormal lab values only
Other (please specify)
Use of terms such as suspected, likely, concern for, or probable (associated with a specific diagnosis that is being evaluated, monitored, or treated as if it exists) are acceptable and can be coded in the inpatient setting, when documented at the
time of discharge.
Thank you,
Kaye Townsend RN
CDI Specialist
[place] [facility]
Please use your independent medical judgment in providing your response.
[2024-02-18 14:04] VITALS: BP 130/56; PULSE 76; O2SAT 95
[2024-02-18 16:23] VITALS: BP 137/72
[2024-02-18 16:33] LABS: Glucose - Point of Care 179 mg/dl (70-99)
[2024-02-18] MEDS: NOVOLOG FLEXPEN-LOW RESISTANCE 1 UNITS SC (17:00)
[2024-02-18] MEDS: ELIQUIS 5 MG PO (20:43)
[2024-02-18 21:15] LABS: Glucose - Point of Care 60 mg/dl (70-99)
[2024-02-18 21:37] LABS: Glucose - Point of Care 58 mg/dl (70-99)
[2024-02-18 22:07] LABS: Glucose - Point of Care 77 mg/dl (70-99)
[2024-02-18 23:09] VITALS: BP 130/63
[2024-02-19 00:38] LABS: Glucose - Point of Care 58 mg/dl (70-99)
[2024-02-19 01:07] LABS: Glucose - Point of Care 93 mg/dl (70-99)
[2024-02-19 03:28] LABS: Glucose - Point of Care 166 mg/dl (70-99)
[2024-02-19 05:19] LABS: Glucose - Point of Care 169 mg/dl (70-99)
[2024-02-19] MEDS: SYNTHROID 112 MCG PO (05:25)
[2024-02-19 06:00] VITALS: BMI 23.6
[2024-02-19 07:18] LABS: Glucose - Point of Care 150 mg/dl (70-99)
[2024-02-19 07:30] LABS: Hematocrit 32.4 % (39.0-52.0); Hemoglobin 11.3 g/dL (13.0-18.0); Mean Corp Hgb Conc. 34.9 g/dL (33.0-37.0); Mean Corpuscular Hgb 30.5 pg (27.0-31.0); Mean Corpuscular Volume 87.3 fL (80.0-94.0); Mean Platelet Volume 12.2 fL (7.4-10.4); Platelet Count 119 10^3/uL (130-400); Red Blood Cell Count 3.71 10^6/uL (4.70-6.10); Red Cell Dist. Width 14.3 % (11.5-14.5); White Blood Cell Count 4.1 10^3/uL (4.8-10.8)
--- NOTE | 2024-02-19 07:57 | PN.DE.MGMTRT ---
Insulin Management
- -
02/19/2024: Diabetes Management Follow up:
Patient admitted 02/09 with myasthenia gravis flare manifesting with dysphagia.
Pt states that he has had difficulty with both solid and liquid food as well as his oral medications.
PMH includes: HTN, HLD, CAD, CHF, hypothyroidism, antibody positive myasthenia gravis, IDDM, A1C 6.6%, down from 7.3% on 12/07/23.
Was using [employer] 780G pump with NovoLog insulin, Extended wear infusion set and CGM prior to admission. He follows with Dr. Subramanian and sees Levar Alvarez.
Pt reports that pump was discontinued on arrival to the ED and was taken home with family.
He has completed 5 day course of IVIG and a 3 day course of high dose IV steroids.
Pt awake, alert, oriented, sitting up in chair, very conversant and pleasant, able to discuss diabetes management. He feels ready to resume insulin pump.
Assisted patient with Guardian CGM insertion and extended wear infusion set. Resumed basal insulin at 10:00 Pump settings as follows:
Basal CHO Correction target
12AM .225 12 40 125
4am .25 12 40 125
6am .55 12 40 125
8AM .6 12 40 125
12PM .55 12 40 125
4PM .4 12 40 125
24 hour basal total 10.3
Active insulin 2 hours
Lantus and novolog stopped, patient to bolus via pump for meals and correction.
Sensor in warm up phase. Discussed with patients nurse.
Patient for possible discharge today.
Diabetes History
- -
Type of Diabetes: 1
Pre-Admission Diabetes Regimen
02/18/24 02/19/24
09:17 07:14
Creatinine 0.7 Cancelled
Lab Results
Hemoglobin A1c 6.6 % (4.0-5.6) H 02/11/24 07:29
Insulin Pump Settings
IP Diabetes Regimen
02/18/24 02/18/24 02/18/24
09:17 12:15 16:32
Glucose 229 H
POC Glucose 268 H 179 H
02/18/24 02/18/24 02/18/24
21:13 21:35 22:05
Glucose
POC Glucose 60 L 58 L 77
02/19/24 02/19/24 02/19/24
00:36 01:05 03:26
Glucose
POC Glucose 58 L 93 166 H
02/19/24 02/19/24 02/19/24
05:18 07:14 07:17
Glucose Cancelled
POC Glucose 169 H 150 H
Meal type: Lunch
Meal type: Breakfast
Amount consumed: 100%
Amount consumed: 90%
Patient Education
[2024-02-19 08:00] VITALS: BP 144/67
[2024-02-19] MEDS: NOVOLOG FLEXPEN 8 UNITS SC (08:20)
[2024-02-19] MEDS: NOVOLOG FLEXPEN-LOW RESISTANCE 1 UNITS SC (08:21)
[2024-02-19] MEDS: LIPITOR 80 MG PO (08:21)
[2024-02-19] MEDS: ACULAR 0.5% EYE DROPS 1 DROP BOTH EYES ×2 (08:21→14:20)
[2024-02-19] MEDS: ELIQUIS 5 MG PO (08:21)
[2024-02-19] MEDS: TOPROL XL 50 MG PO (08:22)
[2024-02-19] MEDS: MESTINON 60 MG PO (08:22)
[2024-02-19 09:24] LABS: Blood Urea Nitrogen 16 mg/dl (9-20); Calcium 8.7 mg/dl (8.4-10.2); Carbon Dioxide 28 mmol/L (22-30); Chloride 104 mmol/L (98-107); Estimated Creatinine Clearance 81 ml/min; Glucose 118 mg/dl (70-99); Magnesium 1.9 mg/dl (1.6-2.3); Phosphorus 4.4 mg/dl (2.5-4.5); Potassium 4.3 mmol/L (3.5-5.1); Sodium 135 mmol/L (135-145); eGFR > 60.00
[2024-02-19 11:00] VITALS: BP 127/63
[2024-02-19] MEDS: NOVOLOG FLEXPEN-LOW RESISTANCE SC (12:00)
[2024-02-19] MEDS: NOVOLOG FLEXPEN SC (12:00)
--- NOTE | 2024-02-19 12:09 | W.PN.HOSP.TC ---
Addendum entered and electronically signed by Moisés May MD 02/20/24 13:46:
Pancytopenia not related to IVIG
Addendum entered and electronically signed by Moisés May MD 02/19/24 15:06:
Chronic Thrombocytopenia
Addendum entered and electronically signed by Moisés May MD 02/19/24 12:48:
Pancytopenia
Chronic chemotherapy
Mild anemia likely dilutional with IV fluid resuscitation
Leukopenia however noticed in the past.
Outpatient repeat CBC
Original Note:
Today's Communication/Plan
-
restart insulin pump
await DM UTILIZATION REVIEW COORDINATOR
po eliquis/metoprolol
Assessment / Plan
Assessment / Plan
General: No Apparent Distress
HEENT: NormoCephalic, Anicteric, Moist mucous membranes, PERRLA and Other (wearing glasses); No [place] Conjunctivae DHT in place
Respiratory: Clear
Cardiac: S1/S2 and Regular Rhythm
GI: Soft, Non Tender, Non Distended and Normal Bowel Sounds
Musculoskeletal: Edema, Left Lower Extremity (Chronic venous stasis ) and Edema, Right Lower Extremity (Chronic venous stasis )
Skin: Warm
Neuro: Awake, AO x 3, No Motor Deficits, Slurred Speech improved and Other (no nystagmus); No Facial Droop or Tremors
Psych: Calm
#Acute myasthenia gravis flareup with dysphagia
finished IVIG x 5 days
s/p IV steroids high-dose high dose x 3 days
Now on Mestinon 60mg TID
Passed VSE on second term-okay for regular diet. Pt stated he will start with soft food and slowly uptitrate his diet consistency.
Speech following
Monitor respiratory status closely. NIFs ordered
Monitor O2 saturation closely
Neurology eval appreciated
#Dysphagia
Pt agreed for DHT/TF
GI following
off tube feeds
02/15 speech eval appreciated noted improvement trial clear liquids started. Pending repeat VSE 01/18
-Passed and started on regular diet
#OMAR
hx of elevated cr with IVIG/Pheresis in the past
cont with IVF
Cr improved.
monitor Bicarb
#Primary hypertension
Metoprolol
BP otherwise well controlled
may need to adjust/Dc Norvasc/lisinopril on DC.
#Hyperlipidemia
Cont statin
#Diabetes mellitus on insulin pump
Patient removed insulin pump.
cw lantus and aspart Insulin sliding scale.
Diabetic UTILIZATION REVIEW COORDINATOR following
due to periodic hypoglycemia Lantus reduced from BID dosing to HS (patient was refusing BID dosing to begin with), premeal insulin put on hold, sliding scale insulin continued
Probably needs to be restated on pump at home or here.
CAD status post CABG
Without any chest pain.
Off antiplatelets and on Eliquis
Atrial flutter;unclear chronicity
DC heparin gtt.
Elevated [id number] score. Cr wnl. Wt >60kg. Eliquis 5mg BID dose adjusted.
Restart po metoprolol
Hypothyroidism
started PO synthroid through tube
Sick sinus syndrome status post pacemaker
History of TIA/CVA
Chronic venous insufficiency
PT/OT appreciated home health
DVT prophylaxis eliquis
Full code
Anticipated Discharge: Today
Subjective/Interval History
-
Date of Service: February 19, 2024
Tolerating diet
improvement in speech
Objective Data
-
Labs:
Laboratory Results
02/19/24 02/19/24
07:14 07:51
WBC 4.1 L
Hgb 11.3 L
Hct 32.4 L
Plt Count 119 L
Sodium Cancelled 135
Potassium Cancelled 4.3
Chloride Cancelled 104
Carbon Dioxide Cancelled 28
BUN Cancelled 16
Creatinine Cancelled 0.8
Glucose Cancelled 118 H
Calcium Cancelled 8.7
Vital Signs:
Vital Signs
Temp Pulse Resp BP Pulse Ox
97.7 F 86 16 144/67 100
02/19/24 08:00 02/19/24 08:00 02/19/24 08:00 02/19/24 08:00 02/19/24 08:00
I&O
02/18/24 02/19/24 02/20/24
06:59 06:59 06:59
Intake Total 1750 / 1750 1800 / 1800
Output Total 2895 / 2895 800 / 800
Balance -1145 / -1145 1000 / 1000
[2024-02-19 12:20] LABS: Glucose - Point of Care 174 mg/dl (70-99)
[2024-02-19] MEDS: PT'S OWN INSULIN PUMP - NovoLOG 0.800000000000000044 UNIT SC (13:02)
--- NOTE | 2024-02-19 13:04 | W.DCSUMMARY ---
Discharge Summary
Discharge Data
Date of Admission: 02/10/24
Date of Discharge: 02/19/24
-
Pending Results: No
Hospital Course
78-year-old male past medical history of osteonecrosis, hypothyroidism, hypertension, diabetes mellitus, atrial flutter, history of TIA/CVA is presenting from home with dysphagia. Patient said he was having episode of slurred speech and he knew he
was in the flyer. Patient was admitted to the hospital. Patient was evaluated by neurology and patient received Solu-Medrol 1000 mg x 3 days. Patient also received IVIG for 5 days. IV insulin pump was discontinued and started on subcu insulin by
diabetic nurse practitioner. Initially video swallow with severe aspiration and patient was kept NPO. Dobbhoff tube was placed and started on tube feeding. Post treatment with IV steroids and IVIG patient with improvement in dysphagia and
slurring of the speech improved too. Repeat video swallow evaluation was performed and patient was able to tolerate diet without any aspiration. Dobbhoff tube was removed. Patient was transition from subcu insulin to IV insulin. Looking at
patient lab patient creatinine was stable weight greater than 60 kg and thus his Eliquis dose was adjusted to 5 mg p.o. twice daily as patient with elevated [id number] and needs to be properly anticoagulated with appropriate dosing. Patient
had mild OMAR which resolved with IV fluid. Patient blood pressure was well-controlled and Norvasc was discontinued. Lisinopril dose was decreased to 5 mg as patient with diabetes melitis and should be on DWIGHT or ARB. Patient will need repeat blood
work as outpatient with primary care doctor. Patient was aware PT and OT will be discharged home.
Discharge Plan
-
Patient Disposition: Home (Routine Discharge)
Discharge Diagnosis/Procedures: Acute myasthenia gravis flare with dysphagia
Dysphagia
Acute kidney injury
Condition: Fair
Diet: Diabetic, Carb Controlled
Activity: With assistance and As tolerated
Driving Restrictions: As prior to admission
Blood Work: cbc and bmp in 7-10 days via primary doctor.
Referrals:
Gary Norton MD [Family Provider] - in less than 1 week
Osmany Blue MD [Active] - None
Prescriptions:
New
Eliquis 5 mg Tablet
5 mg PO BID 30 Days Qty: 60 0RF
lisinopril 5 mg tablet
5 mg PO DAILY Qty: 30 0RF
Continued
atorvastatin 80 MG tablet
80 mg PO DAILY
levothyroxine 112 MCG tablet
112 mcg PO DAILY
metoprolol succinate 50 mg Tablet Extended Release 24 Hr
50 mg PO DAILY
pyridostigmine bromide 60 mg tablet
60 mg PO TID
Patient Own Insulin Pump
0 units SC .VIA PUMP
Patient Comments:
removed in ER 02/09
Rx Instructions:
novolog vial filled q7days
ketorolac 0.5 % Drops
1 drp BOTH EYES QID
furosemide [Lasix] 20 mg Tablet
20 mg PO PRN (Reason: sweling)
Patient Comments:
uses prn leg swelling
clobetasol
topical PRN (Reason: dry skin)
Patient Comments:
pt uses 0.05 % ointment as need to lower legs
Discontinued
amlodipine 5 MG tablet
5 mg PO DAILY
lisinopril 40 mg tablet
40 mg PO DAILY
Eliquis 2.5 mg Tablet
2.5 mg PO BID
Discharge Orders:
Discharge Patient (As Directed); Ordered 02/19/24
Ordered By: Moisés May
Discharge Date and Time
Print Language: FAROESE
--- NOTE | 2024-02-19 15:00 | PN.CDI ---
CDI
- -
CDI:
Physician Documentation Request
Admit Date: 02/10/24 12:51
Dear Doctor Yadira,
Please review the following and provide your response in the progress notes.
Clinical Indicators:
Pt admitted with Myasthenia Gravis Exacerbation s/p IVIG for 5 days
Previous Query response is pancytopenia
Please provide the suspected Etiology of the documented Pancytopenia:
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
Pancytopenia due to other cause
Use of terms such as suspected, likely, concern for, or probable (associated with a specific diagnosis that is being evaluated, monitored, or treated as if it exists) are acceptable and can be coded in the inpatient setting, when documented at the
time of discharge.
Thank you,
Kaye Townsend RN
CDI Specialist
[place] Text
Please use your independent medical judgment in providing your response.
--- NOTE | 2024-02-19 15:25 | CM ---
Shree was discharged to home with no needs.
PCP: Gary Norton
Pharmacy: [facility] [place]
== END 2024-02-19 14:29 | disposition home or self-care (01) | DRG 57 ==
LOC: 4 EAST ACU 12:51
PROVIDERS: Internal Medicine; Internal Medicine Gastroenterology; ADMITTING PHYSICIAN Hospitalist; CONSULT PHYSICIAN Student in an Organized Health Care Education/Training Program; EMERGENCY PHYSICIAN Emergency Medicine; FAMILY PHYSICIAN Family Medicine
PROC: 0DH67UZ Insertion of Feeding Device into Stomach, Via Natural or Artificial Opening (ICD-10-PCS; 2024-02-12)
PROC: 3E0G76Z Introduction of Nutritional Substance into Upper GI, Via Natural or Artificial Opening (ICD-10-PCS; 2024-02-12)
DX: G70.01 Myasthenia gravis with (acute) exacerbation (principal); I48.4 Atypical atrial flutter; N17.9 Acute kidney failure, unspecified; D61.818 Other pancytopenia; E78.5 Hyperlipidemia, unspecified; I10 Essential (primary) hypertension; E11.9 Type 2 diabetes mellitus without complications; Z79.01 Long term (current) use of anticoagulants; E03.9 Hypothyroidism, unspecified; I49.5 Sick sinus syndrome; I25.10 Atherosclerotic heart disease of native coronary artery without angina pectoris
CPT/HCPCS: 74018; 74230; 80048; 80053; 82947; 82962; 83036; 83735; 84100; 85025; 85027; 85730; 92526; 92610; 92611; 93005; 97116; 97162; 97166; 97530; 97535; 99285; J1569

== ENCOUNTER → 2024-02-29 06:27 | Outpatient (REF) | payer OTHER, SELFPAY ==
[2024-02-29 08:04] LABS: % Basophils 1.4 % (0-2); % Eosinophils 3.1 % (0-6); % Immature Granulocytes 0.3 % (0-0.5); % Lymphocytes 34.4 % (20.5-51.1); % Monocytes 16.3 % (1.7-9.3); % Neutrophils 44.5 % (42.2-75.2); Absolute Eosinophils 0.1 10^3/uL (0-0.7); Absolute Monocytes 0.5 10^3/uL (0.1-0.6); Absolute Neutrophils 1.3 10^3/uL (1.4-6.5); Hematocrit 30.7 % (39.0-52.0); Hemoglobin 10.3 g/dL (13.0-18.0); Mean Corp Hgb Conc. 33.6 g/dL (33.0-37.0); Mean Corpuscular Hgb 30.9 pg (27.0-31.0); Mean Corpuscular Volume 92.2 fL (80.0-94.0); Mean Platelet Volume 12.6 fL (7.4-10.4); Nucleated Red Blood Cells % 0 % (-); Platelet Count 113 10^3/uL (130-400); Red Blood Cell Count 3.33 10^6/uL (4.70-6.10); Red Cell Dist. Width 15.2 % (11.5-14.5); White Blood Cell Count 2.9 10^3/uL (4.8-10.8)
[2024-02-29 08:35] LABS: Blood Urea Nitrogen 19 mg/dl (9-20); Calcium 8.8 mg/dl (8.4-10.2); Carbon Dioxide 26 mmol/L (22-30); Chloride 108 mmol/L (98-107); Glucose 100 mg/dl (70-99); Potassium 3.9 mmol/L (3.5-5.1); Sodium 140 mmol/L (135-145); eGFR > 60.00
== END ==
LOC: REG 06:27
PROVIDERS: ATTENDING PHYSICIAN Nurse Practitioner Family; FAMILY PHYSICIAN Family Medicine
DX: G70.00 Myasthenia gravis without (acute) exacerbation (principal); I10 Essential (primary) hypertension; E10.59 Type 1 diabetes mellitus with other circulatory complications
CPT/HCPCS: 36415; 80048; 85025

== ENCOUNTER 2024-03-12 06:40 | Outpatient (RCR) | payer OTHER, SELFPAY | END 2024-03-12 23:59 | disposition home or self-care (01) | LOC: RST 06:40 | PROVIDERS: ATTENDING PHYSICIAN Family Medicine | DX: R13.10 Dysphagia, unspecified (principal); R13.12 Dysphagia, oropharyngeal phase; G70.00 Myasthenia gravis without (acute) exacerbation; R47.81 Slurred speech | CPT/HCPCS: 92610 ==

== ENCOUNTER → 2024-03-21 06:16 | Outpatient (REF) | payer OTHER, SELFPAY ==
[2024-03-21 08:03] LABS: ALT (SGPT) 22 U/L (0-50); AST (SGOT) 31 U/L (17-59); Albumin 3.9 g/dl (3.5-5.0); Alkaline Phosphatase 100 U/L (38-126); Blood Urea Nitrogen 18 mg/dl (9-20); Calcium 9.1 mg/dl (8.4-10.2); Carbon Dioxide 26 mmol/L (22-30); Chloride 107 mmol/L (98-107); Glucose 155 mg/dl (70-99); Potassium 4.4 mmol/L (3.5-5.1); Sodium 137 mmol/L (135-145); Total Bilirubin 0.7 mg/dl (0.2-1.3); Total Protein 7.1 g/dl (6.3-8.2); eGFR > 60.00
[2024-03-21 08:07] LABS: Free T4 1.84 ng/dl (0.78-2.19)
[2024-03-21 08:21] LABS: TSH 4.25 uIU/ml (0.47-4.68)
[2024-03-21 09:11] LABS: Glycohemoglobin (HgbA1c) 6.1 % (4.0-5.6)
[2024-03-21 11:28] LABS: % Eosinophils 2.7 % (0-6); % Immature Granulocytes 0.2 % (0-0.5); % Lymphocytes 29.4 % (20.5-51.1); % Monocytes 13.2 % (1.7-9.3); % Neutrophils 53.5 % (42.2-75.2); Absolute Basophils 0.1 10^3/uL (0-0.2); Absolute Eosinophils 0.1 10^3/uL (0-0.7); Absolute Lymphocytes 1.5 10^3/uL (1.2-3.4); Absolute Monocytes 0.7 10^3/uL (0.1-0.6); Absolute Neutrophils 2.8 10^3/uL (1.4-6.5); Hematocrit 35.4 % (39.0-52.0); Mean Corp Hgb Conc. 33.9 g/dL (33.0-37.0); Mean Corpuscular Hgb 31.1 pg (27.0-31.0); Mean Corpuscular Volume 91.7 fL (80.0-94.0); Mean Platelet Volume 12.9 fL (7.4-10.4); Nucleated Red Blood Cells % 0 % (-); Platelet Count 145 10^3/uL (130-400); Red Blood Cell Count 3.86 10^6/uL (4.70-6.10); Red Cell Dist. Width 14.2 % (11.5-14.5); White Blood Cell Count 5.1 10^3/uL (4.8-10.8)
== END ==
LOC: REG 06:16
PROVIDERS: ATTENDING PHYSICIAN Physician Assistant; FAMILY PHYSICIAN Family Medicine
DX: E10.65 Type 1 diabetes mellitus with hyperglycemia (principal); E03.8 Other specified hypothyroidism
CPT/HCPCS: 36415; 80053; 83036; 84439; 84443; 85025

== ENCOUNTER 2024-04-11 10:01 | Outpatient (RCR) | payer OTHER, SELFPAY | END 2024-04-11 23:59 | disposition home or self-care (01) | LOC: RST 10:01 | PROVIDERS: ATTENDING PHYSICIAN Family Medicine | DX: R13.12 Dysphagia, oropharyngeal phase (principal) | CPT/HCPCS: 92526 ==

== ENCOUNTER 2024-05-19 11:16 | Outpatient (RCR) | payer OTHER, SELFPAY | END 2024-05-19 12:23 | disposition home or self-care (01) | LOC: RST 11:16 | PROVIDERS: ATTENDING PHYSICIAN Family Medicine | DX: R13.10 Dysphagia, unspecified (principal); R13.12 Dysphagia, oropharyngeal phase; G70.01 Myasthenia gravis with (acute) exacerbation; R47.81 Slurred speech | CPT/HCPCS: 92526 ==

== ENCOUNTER 2024-05-31 14:10 | Emergency (ER) | payer OTHER, SELFPAY ==
[2024-05-31 14:12] VITALS: BP 165/84
[2024-05-31 15:13] VITALS: BMI 25.6
--- NOTE | 2024-05-31 15:14 | ED.GENMED ---
History of Present Illness
<Lori Ojeda PA-C - Last Filed: 05/31/24 18:33>
General
Chief Complaint: Heart Rate Problem
Source: patient
Exam Limitations: none
Time Seen by Provider: 05/31/24 15:09
Nursing documentation reviewed up to this point in time: agreed with
History of Present Illness
History of Present Illness:
79-year-old male with past medical history of coronary artery disease, hypertension, hyperlipidemia, diverticulitis, pacemaker in place presents emergency department today with concerns of a transient episode of lightheadedness, palpitations, and
chest pain. This lasted around a few minutes this morning. Patient states that he felt so uncomfortable that he called EMS. Patient states that he was not exerting himself at the time. Patient states that a similar episode happened yesterday
that resolved and he did not call EMS at the time.. Patient does not recall if he has any like this before. Patient currently is asymptomatic, he denies chest pain, shortness of breath, dizziness, lightheadedness, abdominal pain, headaches,
nausea, vomiting. Patient denies any falls. Patient follows with Dr. Wagner. Patient has a [employer] pacemaker.
Past History
<Lori Ojeda PA-C - Last Filed: 05/31/24 18:33>
Past History
ED Past Medical History: Arrthythmia (SA node dysfunction), CAD, HTN, Hypercholesterolemia, IDDM, Hypothyroidism and Other (Cricopharyngeus bar)
ED Past Surgical History: Cardiac (medtronic pacemaker 2007) and Other
Social History
Tobacco: Non-smoker
Alcohol: None
Drug: None
Personal: Other
Living: alone
Employment: Retired
Family History
Family History: Other (Sister with diabetes)
Review of Systems
<Lori Ojeda PA-C - Last Filed: 05/31/24 18:33>
Review of Systems
All Other Systems: ROS reviewed and negative except as documented in HPI and ROS
Phy Exam
<Lori Ojeda PA-C - Last Filed: 05/31/24 18:33>
Physical Exam
Physical Exam:
General: Patient is well appearing and in no acute distress; non-toxic
Skin: Warm and dry, no rashes or lesions
Head: Normocephalic, atraumatic
Eyes: Sclera non-icteric. EOMs intact. PERRLA.
Cardiac: Regular rate and rhythm, no murmurs
Peripheral Vascular: No lower extremity swelling or edema
Pulm: Normal respiratory effort, no wheezes, rales, rhonchi
Neuro: CN II-XII intact, no focal neurologic deficits.
Psychiatric: Appropriate mood and affect.
Course
<Lori Ojeda PA-C - Last Filed: 05/31/24 18:33>
Orders/Labs/Results
Orders:
Orders
05/31/24 14:11
ECG [Electrocardiogram (*1)] Urgent
Reason for Study: Palpitations
EKG- Treatment ONCE
05/31/24 14:12
Electrocardiogram (*1) Urgent
Reason for Study: Palpitations
EKG- Treatment ONCE
05/31/24 15:05
Basic Metabolic Panel Urgent
Complete Blood Count/With Diff Urgent
Troponin I Urgent
05/31/24 15:31
CR Chest - 2 Views Urgent
Comment:
Reason For Exam: transient CP around pacemaker
05/31/24 16:04
Comprehensive Metabolic Panel Urgent
Magnesium Urgent
Comment: ADD ON
TSH Reflex To Free T4 Urgent
Comment: ADD ON
05/31/24 16:42
Add On- LAB Urgent
Tests Added?: TSH reflex T4
05/31/24 16:43
Add On- LAB Urgent
Tests Added?: magnesium
05/31/24 17:15
Electrocardiogram (*1) Urgent
Reason for Study: Chest Pain
05/31/24 17:22
Troponin I Urgent
Abnormal Lab Results
05/31/24 05/31/24
15:05 16:04
RBC 4.43 L 10^6/uL
(4.70-6.10)
MPV 12.4 H fL
(7.4-10.4)
Absolute Monos (auto) 0.7 H 10^3/uL
(0.1-0.6)
Monocytes % 12.0 H %
(1.7-9.3)
Glucose 179 H mg/dl 176 H mg/dl
(70-99) (70-99)
05/31/24 15:05
05/31/24 16:04
Vital Signs
Initial and Last Documented VS:
Initial Vital Signs
Temp Pulse Resp BP Pulse Ox
97.4 F 73 18 165/84 98
05/31/24 14:12 05/31/24 14:12 05/31/24 14:12 05/31/24 14:12 05/31/24 14:12
Last Documented Vital Signs
Temp Pulse Resp BP Pulse Ox
97.4 F 73 16 132/64 98
05/31/24 14:12 05/31/24 16:03 05/31/24 16:03 05/31/24 16:03 05/31/24 16:03
<Zohaib Rico MD - Last Filed: 05/31/24 16:04>
Orders/Labs/Results
Orders:
Orders
05/31/24 14:11
ECG [Electrocardiogram (*1)] Urgent
Reason for Study: Palpitations
EKG- Treatment ONCE
05/31/24 14:12
Electrocardiogram (*1) Urgent
Reason for Study: Palpitations
EKG- Treatment ONCE
05/31/24 15:05
Basic Metabolic Panel Urgent
Complete Blood Count/With Diff Urgent
Troponin I Urgent
05/31/24 15:31
CR Chest - 2 Views Urgent
Comment:
Reason For Exam: transient CP around pacemaker
05/31/24 16:04
Comprehensive Metabolic Panel Urgent
Magnesium Urgent
Comment: ADD ON
TSH Reflex To Free T4 Urgent
Comment: ADD ON
05/31/24 16:42
Add On- LAB Urgent
Tests Added?: TSH reflex T4
05/31/24 16:43
Add On- LAB Urgent
Tests Added?: magnesium
05/31/24 17:15
Electrocardiogram (*1) Urgent
Reason for Study: Chest Pain
05/31/24 17:22
Troponin I Urgent
Abnormal Lab Results
05/31/24 05/31/24
15:05 16:04
RBC 4.43 L 10^6/uL
(4.70-6.10)
MPV 12.4 H fL
(7.4-10.4)
Absolute Monos (auto) 0.7 H 10^3/uL
(0.1-0.6)
Monocytes % 12.0 H %
(1.7-9.3)
Glucose 179 H mg/dl 176 H mg/dl
(70-99) (70-99)
05/31/24 15:05
05/31/24 16:04
Vital Signs
Initial and Last Documented VS:
Initial Vital Signs
Temp Pulse Resp BP Pulse Ox
97.4 F 73 18 165/84 98
05/31/24 14:12 05/31/24 14:12 05/31/24 14:12 05/31/24 14:12 05/31/24 14:12
Last Documented Vital Signs
Temp Pulse Resp BP Pulse Ox
97.4 F 73 16 132/64 98
05/31/24 14:12 05/31/24 16:03 05/31/24 16:03 05/31/24 16:03 05/31/24 16:03
<Lori Ojeda PA-C - Last Filed: 05/31/24 18:33>
MDM/Problems Addressed
Differential Diagnosis Includes:
Differentials include vasovagal syncope, atrial fibrillation, sinus tachycardia, electrolyte derangement, pacemaker displacement, ACS
MDM/Problems Addressed:
79-year-old male with a past medical history of hypertension, coronary artery disease, leukemia, diabetes, pacemaker in place presents emergency department today with concerns of transient episode of dizziness, palpitations and pain around his
pacemaker. This lasted a few minutes but severe enough for patient to call EMS. Currently he is asymptomatic, he is well-appearing. His EKG shows no concerning ischemic changes. His troponin is undetectable. His chest x-ray shows no acute
cardiopulmonary abnormality, pacemaker in place. His pacemaker report reveals that patient device appears to be under sensing of ventricular lead and appears to result in inappropriate ventricular pacing on stored EGM. I discussed this case and
findings with Dr. Gonzalez from cardiology on-call, Dr. Gonzalez reports that patient is stable to go home and office will call him to touch base and have a reinterrogation of pacemaker device. Did send off for repeat troponin.
On reassessment, patient had a second undetectable troponin, and he has remained asymptomatic. He did not have a recurrence of his dizziness or palpitations. Patient is chest pain-free. Patient is stable for discharge, will obtain close
outpatient follow-up
Chronic conditions affecting care:
Coronary artery disease, hypertension, hyperlipidemia, pacemaker in place
Acute Exacerbation and/or Progression of Chronic Illness:
n/a
<Lori Ojeda PA-C - Last Filed: 05/31/24 18:33>
*Pulse Oximetry
Patient hypoxic: no
*Critical Care Note
Total Time (30-74mins, 75-104mins- exclusive of procedures): Not Applicable
Data Reviewed
Review of Other/Old Records Reveals: Records, Radiology Studies (reviewed previous echo) and Discharge Summary (reviewed discharge summary from 02/19/24)
Source: patient and records
Prescriptions/Medications Considered But Not Given:
n/a
Further Testing Considered But Not Given:
n/a
<Lori Ojeda PA-C - Last Filed: 05/31/24 18:33>
Patient Management
Escalation/DeEscalation of care consider admission/obs:
Patient stable for discharge
ED Attending Note
<Lori Ojeda PA-C - Last Filed: 05/31/24 18:33>
-
Portions of this chart may have been created with voice recognition software.� Occasional wrong word or��sound alike� substitutions may have occurred due to the inherent limitations of voice recognition software.
<Zohaib Rico MD - Last Filed: 05/31/24 16:04>
ED Attending Note
Patient seen and examined by attending physician: Yes
I performed the substantive portion of visit, reviewed & personally made and approve the management plan that is documented in note by myself or JIM.: Yes
ED Attending Note:
I have seen and evaluated the patient with a [id number] encounter. I have spoken to the PA and involved in the medical history, the physical exam, medical decision making.
Evaluation and management service: agree unless noted differently below.
Results interpretation: agree unless noted differently below.
Patient is a 79-year-old male with history of CAD, pacemaker placement, hypertension, hyperlipidemia, myasthenia gravis presenting to the emergency department palpitations. Patient states that yesterday he had an episode that lasted a few seconds
of palpitations and dizziness. This only lasted a few seconds yesterday. Today this lasted 4 to 5 minutes. He had palpitations dizziness and some soreness around the pacemaker site. He states that he is due for pacemaker change next year. He
does state that he had issues of his pacemaker over sensing and it was adjusted. He has not had any issues since then. At this time patient is back to his baseline. No chest pain difficulty breathing nausea vomiting. He is compliant with
medications. He follows with [facility]
GENERAL: in no acute distress
HEENT: normocephalic, extraocular movements intact, moist oral mucosa
NECK: normal inspection
RESPIRATORY: no respiratory distress, clear to auscultation bilaterally
CARDIOVASCULAR: regular rate and rhythm
ABDOMEN/: soft, non-distended, non-tender to palpation, no rebound or guarding
EXTREMITIES: non-tender, no edema/swelling
NEUROLOGIC: awake and alert, moves all extremities
SKIN: warm
MDM: 79-year-old man with pacemaker presenting to the emergency department with palpitations dizziness and soreness around the pacemaker site that is now resolved. Vitals here are unremarkable and exam is reassuring. Concern for cardiac arrhythmia
versus ACS versus electrolyte derangement. Will check blood work including troponin and magnesium. Will obtain chest x-ray. EKG per my interpretation is AV dual paced rhythm. We did interrogate his pacemaker. Per the [employer] rep there were
episodes of under sensing. The only arrhythmia was V. tach back in February. Will reach out to the cardiology group regarding these under sensing episodes as this certainly could explain the palpitations.
Discharge Plan
Departure
Patient Disposition: Home (Routine Discharge)
Date of Disposition: 05/31/24
Time of Disposition: 18:31
Patient with high blood pressure during this ER visit?: Yes
Condition: Good
Discharge Problem:
Palpitations
Instructions: Palpitations (DC), Pacemaker Check, BLOOD PRESSURE
Prescriptions:
No Action
atorvastatin 80 MG tablet
80 mg PO DAILY
levothyroxine 112 MCG tablet
112 mcg PO DAILY
metoprolol succinate 50 mg Tablet Extended Release 24 Hr
50 mg PO DAILY
pyridostigmine bromide 60 mg tablet
60 mg PO TID
Patient Own Insulin Pump
0 units SC .VIA PUMP
Patient Comments:
removed in ER 02/09
Rx Instructions:
novolog vial filled q7days
ketorolac 0.5 % Drops
1 drp BOTH EYES QID
furosemide [Lasix] 20 mg Tablet
20 mg PO PRN (Reason: sweling)
Patient Comments:
uses prn leg swelling
clobetasol
topical PRN (Reason: dry skin)
Patient Comments:
pt uses 0.05 % ointment as need to lower legs
Eliquis 5 mg Tablet
5 mg PO BID 30 Days Qty: 60 0RF
lisinopril 5 mg tablet
5 mg PO DAILY Qty: 30 0RF
Referrals:
Gary Norton MD [Family Provider] -
Activity Restrictions/Additional Instructions:
You should receive a call from Dr. Wagner's office on Sunday. She do not receive a call, please call the office. They should get you in for a follow-up appointment and reintegration of your pacemaker within the next few days.
Please return to the emergency department should your symptoms occur again, should she get chest pain, shortness of breath, dizziness, lightheadedness, syncopal episodes, or any other signs or symptoms concerning to you.
Interventions
Interventions:
*Risk Screen - Suicide Last Done: 05/31/24 14:12
*General Assessment Last Done: 05/31/24 14:12
*Neglect/Abuse Screening Last Done: 05/31/24 14:12
ED- Cardiac Assessment Last Done: 05/31/24 15:13
ED- Pulmonary Assessment Last Done: 05/31/24 15:13
Discharge Date and Time
Print Language: UPPER SORBIAN
[2024-05-31 15:16] LABS: % Basophils 0.9 % (0-2); % Eosinophils 2.2 % (0-6); % Immature Granulocytes 0.2 % (0-0.5); % Lymphocytes 22.9 % (20.5-51.1); % Neutrophils 61.8 % (42.2-75.2); Absolute Basophils 0.1 10^3/uL (0-0.2); Absolute Eosinophils 0.1 10^3/uL (0-0.7); Absolute Lymphocytes 1.3 10^3/uL (1.2-3.4); Absolute Monocytes 0.7 10^3/uL (0.1-0.6); Absolute Neutrophils 3.6 10^3/uL (1.4-6.5); Hematocrit 39.7 % (39.0-52.0); Hemoglobin 13.5 g/dL (13.0-18.0); Mean Corpuscular Hgb 30.5 pg (27.0-31.0); Mean Corpuscular Volume 89.6 fL (80.0-94.0); Mean Platelet Volume 12.4 fL (7.4-10.4); Nucleated Red Blood Cells % 0 % (-); Platelet Count 148 10^3/uL (130-400); Red Blood Cell Count 4.43 10^6/uL (4.70-6.10); Red Cell Dist. Width 14.3 % (11.5-14.5); White Blood Cell Count 5.8 10^3/uL (4.8-10.8)
[2024-05-31 15:41] LABS: Blood Urea Nitrogen 18 mg/dl (9-20); Calcium 9.2 mg/dl (8.4-10.2); Carbon Dioxide 29 mmol/L (22-30); Chloride 102 mmol/L (98-107); Estimated Creatinine Clearance 79 ml/min; Glucose 179 mg/dl (70-99); Sodium 139 mmol/L (135-145); eGFR > 60.00
[2024-05-31 15:49] LABS: Troponin I < 0.012 ng/ml
[2024-05-31 16:03] VITALS: BP 132/64
[2024-05-31 16:37] LABS: ALT (SGPT) 29 U/L (0-50); AST (SGOT) 36 U/L (17-59); Albumin 4.3 g/dl (3.5-5.0); Alkaline Phosphatase 70 U/L (38-126); Blood Urea Nitrogen 18 mg/dl (9-20); Carbon Dioxide 29 mmol/L (22-30); Chloride 102 mmol/L (98-107); Estimated Creatinine Clearance 79 ml/min; Glucose 176 mg/dl (70-99); Potassium 4.3 mmol/L (3.5-5.1); Sodium 140 mmol/L (135-145); Total Bilirubin 0.8 mg/dl (0.2-1.3); Total Protein 6.7 g/dl (6.3-8.2); eGFR > 60.00
[2024-05-31 17:00] VITALS: BP 132/67
[2024-05-31 17:56] LABS: Magnesium 1.9 mg/dl (1.6-2.3)
[2024-05-31 18:00] VITALS: BP 132/65
[2024-05-31 18:23] LABS: Troponin I < 0.012 ng/ml
[2024-05-31 18:27] LABS: TSH Reflex To Free T4 2.94 uIU/ml (0.47-4.68)
== END 2024-05-31 18:42 | disposition home or self-care (01) ==
LOC: EMR 14:10
PROVIDERS: Physician Assistant; EMERGENCY PHYSICIAN Student in an Organized Health Care Education/Training Program; FAMILY PHYSICIAN Family Medicine
DX: R00.2 Palpitations (principal); I10 Essential (primary) hypertension; I25.10 Atherosclerotic heart disease of native coronary artery without angina pectoris; E78.00 Pure hypercholesterolemia, unspecified
CPT/HCPCS: 99285; 93288; 71046; 80048; 80053; 83735; 84443; 84484; 85025; 93005

== ENCOUNTER → 2024-08-05 06:22 | Outpatient (REF) | payer OTHER, SELFPAY ==
[2024-08-05 07:40] LABS: % Basophils 0.9 % (0-2); % Eosinophils 3.2 % (0-6); % Immature Granulocytes 0.4 % (0-0.5); % Lymphocytes 30.2 % (20.5-51.1); % Monocytes 11.6 % (1.7-9.3); % Neutrophils 53.7 % (42.2-75.2); Absolute Basophils 0.1 10^3/uL (0-0.2); Absolute Eosinophils 0.2 10^3/uL (0-0.7); Absolute Lymphocytes 1.7 10^3/uL (1.2-3.4); Absolute Monocytes 0.7 10^3/uL (0.1-0.6); Hematocrit 39.8 % (39.0-52.0); Hemoglobin 13.3 g/dL (13.0-18.0); Mean Corp Hgb Conc. 33.4 g/dL (33.0-37.0); Mean Corpuscular Hgb 30.4 pg (27.0-31.0); Mean Corpuscular Volume 90.9 fL (80.0-94.0); Mean Platelet Volume 11.5 fL (7.4-10.4); Nucleated Red Blood Cells % 0 % (-); Platelet Count 170 10^3/uL (130-400); Red Blood Cell Count 4.38 10^6/uL (4.70-6.10); White Blood Cell Count 5.6 10^3/uL (4.8-10.8)
[2024-08-05 08:07] LABS: ALT (SGPT) 26 U/L (0-50); AST (SGOT) 37 U/L (17-59); Albumin 4.3 g/dl (3.5-5.0); Alkaline Phosphatase 77 U/L (38-126); Blood Urea Nitrogen 20 mg/dl (9-20); Calcium 8.8 mg/dl (8.4-10.2); Carbon Dioxide 29 mmol/L (22-30); Chloride 106 mmol/L (98-107); Glucose 143 mg/dl (70-99); HDL Cholesterol 57 mg/dl; LDL Cholesterol, Calculated 66 mg/dl; Potassium 4.5 mmol/L (3.5-5.1); Sodium 141 mmol/L (135-145); Total Bilirubin 0.8 mg/dl (0.2-1.3); Total Cholesterol 133 mg/dl (50-199); Total Protein 7.2 g/dl (6.3-8.2); Triglyceride 54 mg/dl (10-149); Very Low Density Lipoprotein 10 mg/dl (0-30); eGFR > 60.00
[2024-08-05 08:31] LABS: Protein/creatinine Ratio 0.1; Urine Protein 7 mg/dl
[2024-08-05 08:35] LABS: Microalbumin, Random Urine 1.9 mg/dl (0.6-1.7); Microalbumin/creatinine Ratio 15.4 mg/g
[2024-08-05 09:47] LABS: Glycohemoglobin (HgbA1c) 7.1 % (4.0-5.6)
[2024-08-05 14:24] LABS: Free T4 1.52 ng/dl (0.78-2.19)
[2024-08-05 14:38] LABS: TSH 8.18 uIU/ml (0.47-4.68)
[2024-08-06 13:13] LABS: tTG IgA Antibody 10.5 EU/ml (0-19); tTG IgG Antibody 8.5 EU/ml (0-19)
[2024-08-07 04:57] LABS: IgA 371 mg/dl (70-400)
[2024-08-08 00:38] LABS: Endomysial IgA Antibody Titer <1:10 (<1:10)
== END ==
LOC: REG 06:22
PROVIDERS: ATTENDING PHYSICIAN Physician Assistant; FAMILY PHYSICIAN Family Medicine
DX: E10.65 Type 1 diabetes mellitus with hyperglycemia (principal); E03.9 Hypothyroidism, unspecified
CPT/HCPCS: 36415; 80053; 80061; 82043; 82570; 82784; 83036; 83516; 84156; 84439; 84443; 85025; 86231

== ENCOUNTER → 2024-11-07 06:22 | Outpatient (REF) | payer OTHER, SELFPAY ==
[2024-11-07 07:27] LABS: % Basophils 0.6 % (0-2); % Eosinophils 4.5 % (0-6); % Lymphocytes 37.6 % (20.5-51.1); % Monocytes 16.1 % (1.7-9.3); % Neutrophils 41.2 % (42.2-75.2); Absolute Eosinophils 0.1 10^3/uL (0-0.7); Absolute Lymphocytes 1.2 10^3/uL (1.2-3.4); Absolute Monocytes 0.5 10^3/uL (0.1-0.6); Absolute Neutrophils 1.3 10^3/uL (1.4-6.5); Hemoglobin 13.3 g/dL (13.0-18.0); Mean Corp Hgb Conc. 33.3 g/dL (33.0-37.0); Mean Corpuscular Hgb 30.9 pg (27.0-31.0); Mean Corpuscular Volume 92.8 fL (80.0-94.0); Mean Platelet Volume 12.8 fL (7.4-10.4); Nucleated Red Blood Cells % 0 % (-); Platelet Count 83 10^3/uL (130-400); Red Blood Cell Count 4.31 10^6/uL (4.70-6.10); Red Cell Dist. Width 13.9 % (11.5-14.5); White Blood Cell Count 3.1 10^3/uL (4.8-10.8)
[2024-11-07 08:38] LABS: ALT (SGPT) 29 U/L (0-50); AST (SGOT) 36 U/L (17-59); Alkaline Phosphatase 99 U/L (38-126); Blood Urea Nitrogen 21 mg/dl (9-20); Calcium 8.5 mg/dl (8.4-10.2); Carbon Dioxide 29 mmol/L (22-30); Chloride 103 mmol/L (98-107); Glucose 120 mg/dl (70-99); Potassium 4.2 mmol/L (3.5-5.1); Sodium 137 mmol/L (135-145); Total Bilirubin 0.7 mg/dl (0.2-1.3); Total Protein 6.1 g/dl (6.3-8.2); eGFR > 60.00
[2024-11-07 08:39] LABS: Free T4 1.42 ng/dl (0.78-2.19)
[2024-11-07 08:53] LABS: TSH 7.05 uIU/ml (0.47-4.68)
[2024-11-07 09:17] LABS: Glycohemoglobin (HgbA1c) 7.3 % (4.0-5.6)
[2024-11-08 17:20] LABS: tTG IgA Antibody 1.26 FLU (0.00-4.99)
[2024-11-09 01:17] LABS: Endomysial IgA Antibody Titer <1:10 (<1:10)
[2024-11-10 01:15] LABS: IgA 419 mg/dl (70-400)
== END ==
LOC: REG 06:22
PROVIDERS: ATTENDING PHYSICIAN Physician Assistant; FAMILY PHYSICIAN Family Medicine
DX: E10.65 Type 1 diabetes mellitus with hyperglycemia (principal); E03.9 Hypothyroidism, unspecified; I10 Essential (primary) hypertension; I50.32 Chronic diastolic (congestive) heart failure
CPT/HCPCS: 36415; 80053; 82784; 83036; 83516; 84439; 84443; 85025; 86231

== ENCOUNTER → 2024-11-28 09:05 | Outpatient (REF) | payer OTHER, SELFPAY | LOC: RCS 09:05 | PROVIDERS: ATTENDING PHYSICIAN Internal Medicine Cardiovascular Disease; FAMILY PHYSICIAN Family Medicine | DX: I50.32 Chronic diastolic (congestive) heart failure (principal) | CPT/HCPCS: 93306 ==

== ENCOUNTER → 2024-12-03 06:22 | Outpatient (REF) | payer OTHER, SELFPAY ==
[2024-12-03 07:38] LABS: Blood Urea Nitrogen 23 mg/dl (9-20); Calcium 9.1 mg/dl (8.4-10.2); Chloride 104 mmol/L (98-107); Glucose 140 mg/dl (70-99); Potassium 3.9 mmol/L (3.5-5.1); Sodium 140 mmol/L (135-145)
[2024-12-03 08:03] LABS: Carbon Dioxide 29 mmol/L (22-30); eGFR > 60.00
== END ==
LOC: REG 06:22
PROVIDERS: ATTENDING PHYSICIAN Family Medicine
DX: I50.32 Chronic diastolic (congestive) heart failure (principal)
CPT/HCPCS: 36415; 80048

== ENCOUNTER 2024-12-04 16:55 | Emergency (ER) | payer OTHER, SELFPAY ==
[2024-12-04 17:01] VITALS: BP 141/80
[2024-12-04 19:54] VITALS: BP 117/74; BMI 24.7
[2024-12-04 21:38] VITALS: BP 131/76
--- NOTE | 2024-12-05 00:40 | ED.MUSCINJ ---
HPI-Injury
General
Chief Complaint: Musculo-Skeletal Complaint
Source: patient
Exam Limitations: none
Time Seen by Provider: 12/04/24 19:03
Nursing documentation reviewed up to this point in time: agreed with
Past History
Past History
ED Past Medical History: Arrthythmia (SA node dysfunction), CAD, HTN, Hypercholesterolemia, IDDM, Hypothyroidism and Other (Cricopharyngeus bar)
ED Past Surgical History: Cardiac (medtronic pacemaker 2007) and Other
Social History
Tobacco: Non-smoker
Alcohol: None
Drug: None
Personal: Other
Living: alone
Employment: Retired
Family History
Family History: Other (Sister with diabetes)
Musculoskeletal Injury Exam
Musculoskeletal Injury Exam
Right Hip:
Pain with Movement?: Moderate
Tender to palpation?: Mild
Soft tissue swelling?: None
External deformity and angulation?: None
Joint effusion?: None
Contusion?: Moderate
Hematoma-local bleeding into tissue?: None
Strain- Sprain- Tear (Connective tissue injury)?: Mild
Crepitus with movement?: No
Joint instability?: No
Malalignment/deformity?: No
Range of motion: Full
Distal skin color and temperature: normal-warm & good color
Capillary Refill: normal
Normal distal neurovascular exam?: Yes
Right Shoulder:
Pain with Movement?: Moderate
Tender to palpation?: Mild
Soft tissue swelling?: None
External deformity and angulation?: None
Joint effusion?: None
Contusion?: Moderate
Hematoma-local bleeding into tissue?: None
Strain- Sprain- Tear (Connective tissue injury)?: None
Crepitus with movement?: No
Joint instability?: No
Malalignment/deformity?: No
Range of motion: Limited
Distal skin color and temperature: normal-warm & good color
Normal distal neurovascular exam?: Yes
Phy Exam
General Physical Exam
General Presentation: well appearing and mild distress
General age: appears stated age
General Skin: warm and dry
General Habitus: normal
General Mental: alert
Pulmonary Exam
Pulmonary Exam: no respiratory distress and chest non tender
Gastrointestinal Exam
Gastrointestinal Exam: normal bowel sounds, non tender and soft
Neurological Exam
Neurological Exam: alert, oriented x3, CN II-XII intact, no motor deficits, no sensory deficits and speech normal
Musculoskeletal Exam
Musculoskeletal Exam: neuro vasc intact
Skin Exam
Skin Exam: normal color, warm/dry and no rash
Psychiatric Exam
Psychiatric Exam: normal mood/affect
Injury Course
Orders/Labs/Results
Orders:
Orders
12/04/24 19:19
Hip, Right 2-3 Views [CR Hip - RT w/wo Pel 2-3 Vw*] Urgent
Comment:
Reason For Exam: fall
Include a pelvis x-ray?: Yes
Shoulder, Right, Trauma [CR Shoulder, Trauma - Right] Urgent
Comment:
Reason For Exam: fall
ED Attending Note
-
Portions of this chart may have been created with voice recognition software.� Occasional wrong word or��sound alike� substitutions may have occurred due to the inherent limitations of voice recognition software.
Discharge Plan
Departure
Patient Disposition: Home (Routine Discharge)
Date of Disposition: 12/04/24
Time of Disposition: 21:32
Patient with high blood pressure during this ER visit?: No
Condition: Good
Covid-19: Not Applicable
Discharge Problem:
Contusion of hip, Contusion of right shoulder
Instructions: Contusion (DC), Using Cold for Pain, Musculoskeletal Pain
Prescriptions:
No Action
atorvastatin 80 MG tablet
80 mg PO DAILY
levothyroxine 112 MCG tablet
112 mcg PO DAILY
metoprolol succinate 50 mg Tablet Extended Release 24 Hr
50 mg PO DAILY
pyridostigmine bromide 60 mg tablet
60 mg PO TID
Patient Own Insulin Pump
0 units SC .VIA PUMP
Patient Comments:
removed in ER 02/09
Rx Instructions:
novolog vial filled q7days
ketorolac 0.5 % Drops
1 drp BOTH EYES QID
furosemide [Lasix] 20 mg Tablet
20 mg PO PRN (Reason: sweling)
Patient Comments:
uses prn leg swelling
clobetasol
topical PRN (Reason: dry skin)
Patient Comments:
pt uses 0.05 % ointment as need to lower legs
Eliquis 5 mg Tablet
5 mg PO BID 30 Days Qty: 60 0RF
lisinopril 5 mg tablet
5 mg PO DAILY Qty: 30 0RF
Referrals:
Gary Norton MD [Family Provider] - Follow up in 2-3 days
Interventions
Interventions:
*Risk Screen - Suicide Last Done: 12/04/24 21:15
*General Assessment Last Done: 12/04/24 21:15
*Neglect/Abuse Screening Last Done: 12/04/24 21:15
*ED- Fall Risk Assessment Last Done: 12/04/24 21:15
*ED COVID-19 Vaccine History Last Done: 12/04/24 21:15
*Nursing Disposition Last Done: 12/04/24 21:41
ED-Musculoskeletal Assessment Last Done: 12/04/24 19:55
Discharge Date and Time
Discharge Date/Time: 12/04/24 21:42
Print Language: URDU
== END 2024-12-04 21:42 | disposition home or self-care (01) ==
LOC: EMR 16:55
PROVIDERS: EMERGENCY PHYSICIAN Emergency Medicine; FAMILY PHYSICIAN Family Medicine
DX: S70.01XA Contusion of right hip, initial encounter (principal); S40.011A Contusion of right shoulder, initial encounter; W18.30XA Fall on same level, unspecified, initial encounter; Y93.01 Activity, walking, marching and hiking; I10 Essential (primary) hypertension; I25.10 Atherosclerotic heart disease of native coronary artery without angina pectoris; E11.9 Type 2 diabetes mellitus without complications; E03.9 Hypothyroidism, unspecified; E78.00 Pure hypercholesterolemia, unspecified; K57.90 Diverticulosis of intestine, part unspecified, without perforation or abscess without bleeding; M19.90 Unspecified osteoarthritis, unspecified site; Z95.0 Presence of cardiac pacemaker; Z79.4 Long term (current) use of insulin; Z79.01 Long term (current) use of anticoagulants; Z95.1 Presence of aortocoronary bypass graft; Z85.828 Personal history of other malignant neoplasm of skin; Z86.73 Personal history of transient ischemic attack (TIA), and cerebral infarction without residual deficits; Z87.891 Personal history of nicotine dependence; Z88.8 Allergy status to other drugs, medicaments and biological substances
CPT/HCPCS: 99284; 73030; 73502

== ENCOUNTER → 2025-01-14 06:27 | Outpatient (REF) | payer OTHER, SELFPAY ==
[2025-01-14 08:13] LABS: ALT (SGPT) 27 U/L (0-50); AST (SGOT) 35 U/L (17-59); Albumin 3.9 g/dl (3.5-5.0); Alkaline Phosphatase 125 U/L (38-126); Blood Urea Nitrogen 33 mg/dl (9-20); Calcium 8.9 mg/dl (8.4-10.2); Carbon Dioxide 31 mmol/L (22-30); Chloride 106 mmol/L (98-107); Glucose 128 mg/dl (70-99); Potassium 4.1 mmol/L (3.5-5.1); Sodium 142 mmol/L (135-145); Total Bilirubin 0.8 mg/dl (0.2-1.3); Total Protein 6.5 g/dl (6.3-8.2); eGFR > 60.00
== END ==
LOC: REG 06:27
PROVIDERS: ATTENDING PHYSICIAN Family Medicine; REFERRING PHYSICIAN Physician Assistant
DX: E10.42 Type 1 diabetes mellitus with diabetic polyneuropathy (principal); I50.32 Chronic diastolic (congestive) heart failure
CPT/HCPCS: 36415; 80053

== ENCOUNTER → 2025-01-21 06:27 | Outpatient (REF) | payer OTHER, SELFPAY ==
[2025-01-21 08:20] LABS: Blood Urea Nitrogen 27 mg/dl (9-20); Calcium 8.8 mg/dl (8.4-10.2); Carbon Dioxide 31 mmol/L (22-30); Chloride 106 mmol/L (98-107); Glucose 92 mg/dl (70-99); Potassium 3.9 mmol/L (3.5-5.1); Sodium 143 mmol/L (135-145); eGFR > 60.00
== END ==
LOC: REG 06:27
PROVIDERS: ATTENDING PHYSICIAN Family Medicine
DX: I50.32 Chronic diastolic (congestive) heart failure (principal)
CPT/HCPCS: 36415; 80048

== ENCOUNTER → 2025-02-06 06:19 | Outpatient (REF) | payer OTHER, SELFPAY ==
[2025-02-06 07:37] LABS: % Basophils 1.5 % (0-2); % Eosinophils 4.6 % (0-6); % Immature Granulocytes 0.2 % (0-0.5); % Lymphocytes 26.9 % (20.5-51.1); % Neutrophils 52.8 % (42.2-75.2); Absolute Basophils 0.1 10^3/uL (0-0.2); Absolute Eosinophils 0.3 10^3/uL (0-0.7); Absolute Lymphocytes 1.5 10^3/uL (1.2-3.4); Absolute Monocytes 0.8 10^3/uL (0.1-0.6); Absolute Neutrophils 2.9 10^3/uL (1.4-6.5); Hematocrit 36.3 % (39.0-52.0); Mean Corp Hgb Conc. 33.1 g/dL (33.0-37.0); Mean Corpuscular Hgb 30.5 pg (27.0-31.0); Mean Corpuscular Volume 92.1 fL (80.0-94.0); Mean Platelet Volume 11.5 fL (7.4-10.4); Nucleated Red Blood Cells % 0 % (-); Platelet Count 193 10^3/uL (130-400); Red Blood Cell Count 3.94 10^6/uL (4.70-6.10); Red Cell Dist. Width 14.4 % (11.5-14.5); White Blood Cell Count 5.4 10^3/uL (4.8-10.8)
[2025-02-06 08:08] LABS: ALT (SGPT) 23 U/L (0-50); AST (SGOT) 33 U/L (17-59); Albumin 3.9 g/dl (3.5-5.0); Alkaline Phosphatase 92 U/L (38-126); Blood Urea Nitrogen 32 mg/dl (9-20); Carbon Dioxide 34 mmol/L (22-30); Chloride 106 mmol/L (98-107); Glucose 112 mg/dl (70-99); HDL Cholesterol 49 mg/dl; LDL Cholesterol, Calculated 67 mg/dl; Potassium 4.2 mmol/L (3.5-5.1); Sodium 141 mmol/L (135-145); Total Bilirubin 0.7 mg/dl (0.2-1.3); Total Cholesterol 125 mg/dl (50-199); Total Protein 6.8 g/dl (6.3-8.2); Triglyceride 48 mg/dl (10-149); Very Low Density Lipoprotein 9 mg/dl (0-30); eGFR > 60.00
[2025-02-06 08:11] LABS: Microalbumin, Random Urine 1.2 mg/dl (0.6-1.7)
[2025-02-06 08:19] LABS: Microalbumin/creatinine Ratio 8.7 mg/g; Urine Protein 5 mg/dl
[2025-02-06 08:24] LABS: Free T4 1.48 ng/dl (0.78-2.19)
[2025-02-06 08:38] LABS: TSH 7.25 uIU/ml (0.47-4.68)
[2025-02-06 09:35] LABS: Glycohemoglobin (HgbA1c) 6.9 % (4.0-5.6)
== END ==
LOC: REG 06:19
PROVIDERS: ATTENDING PHYSICIAN Physician Assistant; FAMILY PHYSICIAN Family Medicine
DX: E10.65 Type 1 diabetes mellitus with hyperglycemia (principal); E03.9 Hypothyroidism, unspecified
CPT/HCPCS: 36415; 80053; 80061; 82043; 82570; 83036; 84156; 84439; 84443; 85025

== ENCOUNTER 2025-03-13 09:11 | Outpatient (RCR) | payer OTHER, SELFPAY | END 2025-03-13 23:59 | disposition home or self-care (01) | LOC: RST 09:11 | PROVIDERS: ATTENDING PHYSICIAN Family Medicine | DX: G70.00 Myasthenia gravis without (acute) exacerbation (principal); R47.89 Other speech disturbances | CPT/HCPCS: 92507; 92522 ==

== ENCOUNTER 2025-03-27 11:14 | Outpatient (RCR) | payer OTHER, SELFPAY | END 2025-04-02 12:28 | disposition home or self-care (01) | LOC: RST 11:14 | PROVIDERS: ATTENDING PHYSICIAN Family Medicine | DX: G70.00 Myasthenia gravis without (acute) exacerbation (principal); R47.89 Other speech disturbances | CPT/HCPCS: 92507 ==

== ENCOUNTER → 2025-04-01 14:06 | Outpatient (REF) | payer OTHER, SELFPAY ==
[2025-04-01 16:13] LABS: TSH 4.11 uIU/ml (0.47-4.68)
== END ==
LOC: REG 14:06
PROVIDERS: ATTENDING PHYSICIAN Physician Assistant; FAMILY PHYSICIAN Family Medicine
DX: E03.9 Hypothyroidism, unspecified (principal)
CPT/HCPCS: 36415; 84439; 84443

== ENCOUNTER 2025-04-14 17:40 | Emergency (ER) | payer OTHER, SELFPAY ==
[2025-04-14 17:42] VITALS: BP 151/76; BMI 28.0
[2025-04-14 17:43] VITALS: BP 151/67
[2025-04-14 18:00] VITALS: BP 134/66
[2025-04-14 18:08] LABS: Hematocrit 41.2 % (39.0-52.0); Hemoglobin 13.8 g/dL (13.0-18.0); Mean Corp Hgb Conc. 33.5 g/dL (33.0-37.0); Mean Corpuscular Volume 89.8 fL (80.0-94.0); Nucleated Red Blood Cells % 0 % (-); Platelet Count 175 10^3/uL (130-400); Red Cell Dist. Width 14.6 % (11.5-14.5)
[2025-04-14 18:16] LABS: ALT (SGPT) 29 U/L (0-50); AST (SGOT) 38 U/L (17-59); Albumin 4.7 g/dl (3.5-5.0); Alkaline Phosphatase 106 U/L (38-126); Blood Urea Nitrogen 21 mg/dl (9-20); Calcium 9.5 mg/dl (8.4-10.2); Carbon Dioxide 31 mmol/L (22-30); Chloride 103 mmol/L (98-107); Estimated Creatinine Clearance 50 ml/min; Glucose 76 mg/dl (70-99); Potassium 3.9 mmol/L (3.5-5.1); Sodium 139 mmol/L (135-145); Total Protein 7.6 g/dl (6.3-8.2); eGFR > 60.00
--- NOTE | 2025-04-14 19:30 | ED.GENMED ---
History of Present Illness
<Randi Caballero PA-C - Last Filed: 04/15/25 15:04>
General
Chief Complaint: Swallowing Problem
Source: patient
Exam Limitations: none
Time Seen by Provider: 04/14/25 18:59
Nursing documentation reviewed up to this point in time: agreed with
History of Present Illness
History of Present Illness:
Patient is a 80-year-old male with history myasthenia gravis, CAD, hypertension, hyperlipidemia, insulin-dependent diabetes who presents to the emergency department for evaluation of difficulty swallowing. Patient states that yesterday throughout
the day he noticed that he was having some difficulty swallowing and he was having 'mucus buildup in his mouth '. Symptoms seem to persist into today prompting visit to the emergency department. However�patient states by my evaluation�his symptoms
seem resolved. He is having no difficulty swallowing at the current moment. He is handling his oral secretions.
Patient states that even throughout yesterday he was able to swallow his medications and have some sips of water and small amounts of food. He denies any shortness of breath/difficulty breathing.
Patient is taking his Mestinon 3 times yesterday and all 3 doses today.
He follows with Dr. Blue as his primary neurologist�is scheduled for a follow-up appointment in a few weeks.
Past History
<Randi Caballero PA-C - Last Filed: 04/15/25 15:04>
Past History
ED Past Medical History: Arrthythmia (SA node dysfunction), CAD, HTN, Hypercholesterolemia, IDDM, Hypothyroidism and Other (Cricopharyngeus bar)
ED Past Surgical History: Cardiac (medtronic pacemaker 2007) and Other
Social History
Tobacco: Non-smoker
Alcohol: None
Drug: None
Personal: Other
Living: alone
Employment: Retired
Family History
Family History: Other (Sister with diabetes)
Review of Systems
<Randi Caballero PA-C - Last Filed: 04/15/25 15:04>
Review of Systems
Allergies reviewed?: Yes
All Other Systems: ROS reviewed and negative except as documented in HPI and ROS
Phy Exam
<Randi Caballero PA-C - Last Filed: 04/15/25 15:04>
Physical Exam
Physical Exam:
Vitals: Very mildly hypertensive by my assessment. Otherwise vital signs normal. Afebrile
General: Patient is well appearing, no acute distress
Skin: Warm and dry, no rashes or lesions
Head: Normocephalic, atraumatic
Eyes: Sclera nonicteric. EOMs intact. No nystagmus.
Throat: Handling oral secretions. Protecting airway
Neck: Normal ROM, no cervical spine tenderness, no meningismus
Cardiac: Regular rate and rhythm, no murmurs.
Pulm: Normal respiratory effort, lungs clear bilaterally.
Abdomen: No abdominal tenderness.
Extremities: No evidence of cyanosis or edema. 2+ palpable DP pulses bilaterally
Neuro: AAOx3. CN II-XII grossly intact. No focal neurologic deficits.
Psychiatric: Normal affect.
Course
<Randi Caballero PA-C - Last Filed: 04/15/25 15:04>
Orders/Labs/Results
Orders:
Orders
04/14/25 17:52
CMP [Comprehensive Metabolic Panel] Urgent
Complete Blood Count/With Diff Urgent
04/14/25 19:34
Pft Nif [RESP] Urgent
Abnormal Lab Results
04/14/25
17:52
RBC 4.59 L 10^6/uL
(4.70-6.10)
RDW 14.6 H %
(11.5-14.5)
MPV 11.0 H fL
(7.4-10.4)
Absolute Monos (auto) 0.9 H 10^3/uL
(0.1-0.6)
Monocytes % 9.7 H %
(1.7-9.3)
Carbon Dioxide 31 H mmol/L
(22-30)
BUN 21 H mg/dl
(9-20)
04/14/25 17:52
04/14/25 17:52
Vital Signs
Initial and Last Documented VS:
Initial Vital Signs
Temp Pulse Resp BP
97.8 F 114 18 151/76
04/14/25 17:42 04/14/25 17:42 04/14/25 17:42 04/14/25 17:42
Last Documented Vital Signs
Temp Pulse Resp BP Pulse Ox
97.8 F 70 15 145/69 96
04/14/25 17:42 04/14/25 20:30 04/14/25 20:30 04/14/25 20:28 04/14/25 20:30
<Feliberto Parham, DO - Last Filed: 04/14/25 20:43>
Orders/Labs/Results
Orders:
Orders
04/14/25 17:52
CMP [Comprehensive Metabolic Panel] Urgent
Complete Blood Count/With Diff Urgent
04/14/25 19:34
Pft Nif [RESP] Urgent
Abnormal Lab Results
04/14/25
17:52
RBC 4.59 L 10^6/uL
(4.70-6.10)
RDW 14.6 H %
(11.5-14.5)
MPV 11.0 H fL
(7.4-10.4)
Absolute Monos (auto) 0.9 H 10^3/uL
(0.1-0.6)
Monocytes % 9.7 H %
(1.7-9.3)
Carbon Dioxide 31 H mmol/L
(22-30)
BUN 21 H mg/dl
(9-20)
04/14/25 17:52
04/14/25 17:52
Vital Signs
Initial and Last Documented VS:
Initial Vital Signs
Temp Pulse Resp BP
97.8 F 114 18 151/76
04/14/25 17:42 04/14/25 17:42 04/14/25 17:42 04/14/25 17:42
Last Documented Vital Signs
Temp Pulse Resp BP Pulse Ox
97.8 F 70 15 145/69 96
04/14/25 17:42 04/14/25 20:30 04/14/25 20:30 04/14/25 20:28 04/14/25 20:30
<Randi Caballero PA-C - Last Filed: 04/15/25 15:04>
MDM/Problems Addressed
Differential Diagnosis Includes:
Not limited to: Myasthenia gravis exacerbation, CVA, dehydration, medication noncompliance, etc.
MDM/Problems Addressed:
80-year-old male with history as documented significant for myasthenia gravis presenting with one day of dysphasia, completely resolved by my assessment. Apparently had some episodes of dysphasia and difficulty with oral secretions yesterday into
today however, he has been able to swallow his Mestoninand tolerate some oral intake. Vitals and physical exam as above.
Patient very well appearing and in no distress. He is watching the [employer], breathing comfortably. He is handling his oral secretions. Lungs clear bilaterally. No other neurological deficits noted.
Basic labs were sent prior to my evaluation without clinically significant abnormalities.
Based on patients current presentation � do not suspect acute myasthenia crisis or exacerbation. However � given history of symptoms yesterday � will consult respiratory for NIF test.
Update: respiratory down to perform NIF with a result of -30. Patient remains very well appearing and asymptomatic. He has taken all three doses of his scheduled mestonin today. He is drinking water and tolerating oral secretions without difficulty.
Ultimately � feel stable for discharge home with continued neurology follow-up outpatient and strict return precautions. Patient comfortable with plan. Patient seen with attending physician.
Chronic conditions affecting care:
Myasthenia gravis
Acute Exacerbation and/or Progression of Chronic Illness:
Myasthenia gravis without acute exacerbation
<Randi Caballero PA-C - Last Filed: 04/15/25 15:04>
*Pulse Oximetry
SaO2: 98
Oxygen Mode of Delivery: Room air
Patient hypoxic: no
*EKG
Interpreted by ED Provider?: NA
*Gas Generator Operator Interpretation
Rate: Gas Generator Operator- N/A
*Critical Care Note
Total Time (30-74mins, 75-104mins- exclusive of procedures): Not Applicable
<Randi Caballero PA-C - Last Filed: 04/15/25 15:04>
Patient Management
Discussion with other providers: Other (Respiratory therapist)
Escalation/DeEscalation of care consider admission/obs:
Considered admission for further monitoring however symptoms have completely improved, NIF normal, patient swallowing and tolerating oral intake without difficulty
ED Attending Note
<SERENA Villanueva Last Filed: 04/15/25 15:04>
-
Portions of this chart may have been created with voice recognition software.� Occasional wrong word or��sound alike� substitutions may have occurred due to the inherent limitations of voice recognition software.
<Feliberto Parham DO - Last Filed: 04/14/25 20:43>
ED Attending Note
Patient seen and examined by attending physician: Yes
I performed the substantive portion of visit, reviewed & personally made and approve the management plan that is documented in note by myself or JIM.: Yes
ED Attending Note:
Seen with PA examined independently 80-year-old male myasthenia some trouble swallowing, has improved dramatically, here he looks well was watching the [employer] game sitting upright very minimal twitching of his eyelids, speech is clear not drooling
NIF test noted, tolerated 2 earlier doses of Mestinon earlier, will leave he stable for outpatient follow-up states that physical speech therapy helped with him previously
Discharge Plan
Departure
Patient Disposition: Home (Routine Discharge)
Date of Disposition: 04/14/25
Time of Disposition: 20:29
Patient with high blood pressure during this ER visit?: Yes
Condition: Good
Discharge Problem:
Myasthenia gravis without acute exacerbation
Instructions: Myasthenia gravis, BLOOD PRESSURE
Prescriptions:
No Action
atorvastatin 80 MG tablet
80 mg PO DAILY
levothyroxine 112 MCG tablet
112 mcg PO DAILY
metoprolol succinate 50 mg Tablet Extended Release 24 Hr
50 mg PO DAILY
pyridostigmine bromide 60 mg tablet
60 mg PO TID
Patient Own Insulin Pump
0 units SC .VIA PUMP
Patient Comments:
removed in ER 02/09
Rx Instructions:
novolog vial filled q7days
ketorolac 0.5 % Drops
1 drp BOTH EYES QID
furosemide [Lasix] 20 mg Tablet
20 mg PO PRN (Reason: sweling)
Patient Comments:
uses prn leg swelling
clobetasol
topical PRN (Reason: dry skin)
Patient Comments:
pt uses 0.05 % ointment as need to lower legs
Eliquis 5 mg Tablet
5 mg PO BID 30 Days Qty: 60 0RF
lisinopril 5 mg tablet
5 mg PO DAILY Qty: 30 0RF
Referrals:
Gary Norton MD [Family Provider, Family Practice]
Osmany Blue MD [Active, Neurology] - Next open appointment
Activity Restrictions/Additional Instructions:
Return to the emergency department with any difficulty swallowing, difficulty handling oral secretions, any shortness of breath/difficulty breathing, signs of severe dehydration, worsening current symptoms, or any other concerns
- As discussed�your lab work and respiratory test showed no acute abnormalities.
- It is important that you continue to take your medications as prescribed. Stay well-hydrated.
- Follow-up with both primary care and neurology for further evaluation/management and to ensure that your symptoms improve
Monitor your symptoms closely and return to the emergency department with any acute worsening/new symptoms or any other concerns
Interventions
Interventions:
*Risk Screen - Suicide Last Done: 04/14/25 17:42
*General Assessment Last Done: 04/14/25 17:42
*Neglect/Abuse Screening Last Done: 04/14/25 17:42
*ED- Fall Risk Assessment Last Done: 04/14/25 17:42
*ED COVID-19 Vaccine History Last Done: 04/14/25 17:42
*Nursing Disposition Last Done: 04/14/25 20:44
ED-EENT Assessment Last Done: 04/14/25 20:00
PI-Tyevvh-Buxlmgwayx Assessment Last Done: 04/14/25 20:00
ED- Pulmonary Assessment Last Done: 04/14/25 20:00
ED- Neurological Assessment Last Done: 04/14/25 20:00
ED Swallowing Screen Last Done: 04/14/25 20:33
Discharge Date and Time
Discharge Date/Time: 04/14/25 20:45
Print Language: CROATIAN
[2025-04-14 20:28] VITALS: BP 145/69
== END 2025-04-14 20:45 | disposition home or self-care (01) ==
LOC: EMR 17:40
PROVIDERS: EMERGENCY PHYSICIAN Emergency Medicine; FAMILY PHYSICIAN Family Medicine
DX: G70.00 Myasthenia gravis without (acute) exacerbation (principal); E10.9 Type 1 diabetes mellitus without complications; I25.10 Atherosclerotic heart disease of native coronary artery without angina pectoris; I10 Essential (primary) hypertension; E78.00 Pure hypercholesterolemia, unspecified; I49.5 Sick sinus syndrome; Z95.0 Presence of cardiac pacemaker; E03.9 Hypothyroidism, unspecified; Z96.41 Presence of insulin pump (external) (internal); Z79.4 Long term (current) use of insulin; Z83.3 Family history of diabetes mellitus
CPT/HCPCS: 99283; 80053; 85025

== ENCOUNTER 2025-04-20 11:42 | Inpatient (IN) | payer OTHER, SELFPAY ==
[2025-04-20] VITALS (17 sets, daily range): BP systolic 56–143; BP diastolic 51–91; BMI 28.1; BMI 25.2
--- NOTE | 2025-04-20 09:42 | CON.NEURO ---
Neuro Assessment/Plan
Assessment
Acute exacerbation of previously diagnosed myasthenia gravis with the patient experiencing worsening dysphagia as well as neck weakness despite routine use of Rozanolixizumab.
Plan
Due to the persistence of dysphagia despite best medical therapy, patient will require high dose methylprednisolone as well as plasma exchange
We will request the assistance of our hematology-oncology colleague for orders regarding plasma exchange
We will request assistance of our interventional radiology colleague for placement of central catheter
Continue patient's apixaban
Follow vital capacity with goal of greater than 20 ml per kilogram, maximal inspiratory flow greater than 30 cm water pressure, maximal expiratory force greater than 40 cm water pressure
Speech therapy evaluation
Likely will need to change outpatient myasthenia gravis treatment from Rozanolixizumab to the use of Zilucoplan
Goal of normoglycemia
Will follow
Consultation
Order
Date of Consultation: 04/20/25
Requesting Provider:
Reason for Consult:
Subjective/Objective
Subjective Data
Date of Service: April 20, 2025
From outpatient office notes:
78-year-old right-handed male who has presented to the hospital with report of dysphagia on 08/22/2023. Patient had been followed by neurology Dr. Fallon as an outpatient. About a one year ago he presenet with difficulty swallowing. He was
initially evaluated here for this complaint in 08/2022 and was subsequently transferred to [place] for further evaluation. At [place], he had a PEG tube placed and underwent a cricopharyngeal myotomy on 11/06/22. While hospitalized at
[place], Neurology was consulted due to concern for a neurological source of dysphagia. Neurology's examination was supportive of myasthenia gravis and he was started on prednisone 60mg daily and pyridostigmine 60mg TID in addition to
receiving a 5 day course of IVIG. On discharge, he was given a titration schedule to titrate his prednisone down to 40mg daily and his pyridostigmine was 30mg TID. His acetylcholine receptor antibody testing came back positive. His swallowing
improved and he underwent reversal of his PEG tube 1-2 months later. He followed up with Dr. Fallon as an outpatient and in March 2023 his prednisone was stopped due to concern for his IDDM, and his pyridostigmine was decreased to 30mg BID.
He denies any side effects from the pyridostigmine. Since his OV in March with Dr. Fallon, patient reports developing left eyelid drooping and intermittent double vision. He has a left eye cataract and was attributing his eye drooping to the
cataract. On 08/20/23, he reported that he started noticing excess saliva, he was having to spit his secretions out,and his voice started sounding 'funny.' 08/21/23, he had difficulty swallowing his dinner, and then his excessive throat
secretions kept him up most of last night. On day of arrival 08/22/23, he was unable to swallow liquids, solids, or his pills, prompting him come to the ER for evaluation. He denied any shortness of breath, arm or leg weakness/difficulty walking
up steps, dizziness, numbness, bowel/bladder changes, chest pain, or palpitations.
While admitted he completed 5 days of IVIG and was provided steroids.
He was discharged on Pyridostigmine 180mg TID. He stopped rivastigmine as he ran out of medication. Outpatient office did get Vyvgart approved by insurance and he will be starting Vyvgart next Sunday.
Since discharge, he reports he feels just about at baseline. He does however feel that he may benefit from outpatient speech therapy. He does admit to occasional double vision that last 3 seconds while watching TV. He does feel that this is
related to his cataracts. He otherwise denies any symptoms of exacerbation of MG. He denies weakness or shortness of breath.
(02/05/2024)
Pt seen in the office today. He reports he has been feeling well. He completed the first round of Rystiggo last week. He had no adverse reaction. He continues on Pyridostigmine 60 mg TID. He does report blurred vision, but no double vision.
He has follow-up planned with ophthalmology. He has no recent falls. Denies any weakness. He denies any shortness of breath.
(05/28/2024)
Pt seen in the office today. He reports that since his last visit he is doing well. He has continued on Rozanolixizumab and has 2 more SQ infusions and will be done his second round. He continues on pyridostigmine 60 mg three times a day.
He is feeling well and is actually back to bowling twice a week. He is now done with speech therapy. No longer having difficulty with swallowing.
(09/01/2023)
Patient in the office today. He is doing well. He is continued on Rozanolixizumab and has had no adverse side effects. He also continues on peers take mean 60 mg 3 times a day. He does not want to change his regimen. He continues to be able
to bowl twice a week and has no difficulty with any of his ADLs.
12/22/2024
right patient in the office today. He continues to do well on Rozanolixizumab. No adverse side effects. He also continues on Mestinon 60 mg 3 times daily. Unfortunately he did have a fall and injured his right hip. He may need a hip
replacement. He is currently using a walker. He reports no new weakness. Denies any worsening diplopia. He does report diplopia. No Ptosis.
Today03/03/2025
Patient seen in the office today. He continues to do well on Rozanolixizumab. No adverse side effects. Patient received last dose yesterday 03/02/2025 he reported that he had some difficulty swallowing the weekend before. He reports he feels
this was due to a sore throat but did not make that clear to staff. He did request additional speech therapy from his primary care for some mild some slurred speech which has been ongoing. He reports he feels well and strong and offers no new
complaints.
���Myasthenia Gravis:�
Since last visit:
03/2024
Returned to hospital 01/2024, had new episode of speech�
No issues with dysphagia, speech volume
Continued diplopia
Adapted from my esteemed colleague's consultation:
DATE/TIME OF CONSULTATION: 12/06/23
Reason for Consultation: Dysphagia, history myasthenia gravis
78-year-old male with a past ministry of coronary artery disease hypertension, diabetes and antibody positive myasthenia gravis who presents to the hospital with dysphagia and not being able take all his pills properly this morning.
Patient had been seen by myself and neurology colleagues in August for presumed flare of myasthenia gravis treated with IVIG and steroids and he did show improvement, was able to be discharged without any PEG tube.
After discharge he was started on Vygart/Efgartidomod Reginald as an immune therapy for control of myasthenia gravis and he had his second dose in the early part of October approximately 10/31 but did have development of rash on his abdomen after
this so has been stopped from that medication. Plan per his regular neurologist Dr Blue was to get a different immune medication for myasthenia gravis (Rozanolixizumab/Rystiggo) and is still pending approval at this time he has not received
his first dose of this.
Patient does say he thinks he had a GI virus around 2 weeks ago that he has recovered from he has not have any further nausea or diarrhea or abdominal pain.
.
Patient does not take any prednisone on a chronic basis but does take his Mestinon regularly.
He does notice some intermittent diplopia.
He is not having any dysphagia over the past several days to few weeks like he had this morning
Repeated plasmapheresis without difficulty
Duration: chronic, diagnosis
Previous testing: blood work
-CT chest 08/22/23: Negative for thymoma.
-MRI brain 08/29/23: No acute intracranial process. Chronic senescent changes, similar to the prior exam. 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
Previous evaluation: speech therapy
Prior medication(s): Pyridostigmine, steroids, Efgartigomod, Rozanolixizumab (10/2023 started, gap in care with IVIgG 01/2024)
Side-effects with medications: Efgartigomod
Previous treatment(s): IV IgG 08/2023 and 01/2024, Methylprednisolone (01/2024)Plasmapheresis
Associated symptom(s): speech decline
Doesn't include: swallowing, falling
Etiology: myasthenia gravis AB positive
Trigger(s): patient not aware of any
Improving factors: Pyridostigmine, Plasmapheresis, Rozanolixizumab
Worsening factors: patient unaware of any
Unchanged by factors: IV IgG
Severity: significant.
Unfortunately, the patient presented to this hospital's emergency department with greater difficulty swallowing on April 14, 2025 which spontaneously improved leading to his discharge. Unfortunately, the patient had worsening symptoms this morning
leading to return to this hospital's emergency department. Patient is not aware of other symptomatology although he does note that he has revised how he is taking medications in the last prior 24 hours in hopes of reducing a milder swallowing
difficulties that he is experienced in the morning. The patient is currently 1 week away from having a restart of his usual Rozanolixizumab series of injections as a treatment for myasthenia gravis.
The patient also notes that he is having weakness in the neck muscles, he is stronger with the use of his usual medication as a treatment although he also notes that the medication wears off significantly immediately after discontinuance of the
medication, Rozanolixizumab.
Objective Data
Vital Signs
Temp Pulse Resp BP Pulse Ox
36.4 C 76 18 116/57 93
04/20/25 08:37 04/20/25 08:37 04/20/25 08:37 04/20/25 08:37 04/20/25 08:37
Patient Allergies
efgartigimod reginald-fcab (From [employer]) Allergy (Verified 04/20/25 08:37)
Rash
Review of Systems
-
History Source: Patient
All other systems: Reviewed and negative
EENT: Other (eyes watering; no diplopia)
Respiratory: Negative Trouble Breathing
Cardiac: Negative Chest Pain
Abdomen/GI: Negative Incontinence of Stool
Genitourinary: Negative Incontinence
Musculoskeletal: Negative Back Pain or Neck Pain
Neuro: Speech Problem (started 03/2025); Negative Dizzy, Headache or Weakness
Physical Exam
-
General: No Apparent Distress and Appears Stated Age
Eyes: OU Absent Papilledema, Round OU, Edmond Conjunctivae and No Ptosis
HEENT: Anicteric and Moist Mucous Membranes
Neck: Full Range of Motion
Respiratory: No Dyspnea
Cardiac: No JVD
GI: Non-distended
Skin: Unremarkable
Extremities: No Clubbing, No Cyanosis and No Edema
Psych: Intact Judgement/Insight
Extended Neurological Exam
Mood & Affect: Mood Unremarkable and Affect Unremarkable
Attention Span & Concentration: Awake, Alert, Interactive and No Difficulty with 2 Step Request
Memory: Unremarkable
Tremor: Hand Tremor Absent and Head Tremor Absent
Speech: Quantity Unremarkable, Dysarthric (Minimally, at times) and Other (Able to count up to 14 on a single breath)
Cranial Nerve II: Left Eye: Pupillary Reactivity Unremarkable, Pupillary Size Unremarkable and Visual Nelson Intact
Cranial Nerve II: Right Eye: Pupillary Reactivity Unremarkable, Pupillary Size Unremarkable and Visual Nelson Intact
Cranial Nerves III, IV, : Extraocular Movement: Extraocular Movement Full in all Directions and No Ptosis
Cranial Nerve VII: Facial Symmetry: Reduced (Ability to maintain eye closure bilaterally)
Cranial Nerve VIII: Hearing: Unremarkable Hearing to Normal Conversational Volume
Cranial Nerves IX, X: Palate Movement: Palate Elevation Symmetric
Cranial Nerve XI: Shoulder Shrug: Unremarkable
Cranial Nerve XII: Tongue Protusion: Midline
Muscle Strength, Overall: Full Throughout and Other (Neck flexor strength and extensor strength minimally compromised)
Muscle Bulk & Tone: Bulk Unremarkable and Tone Unremarkable
Pronator Drift: No Drift in Upper Extremities
Deep Tendon Reflexes: Absent Throughout
Touch Sensation: Unremarkable
Coordination: Appvmm-vxdp-iodcji Testing Unremarkable
Data Reviewed
-
Labs: Ordered and Pending
Reviewed with: Physician, Physician Fuel Quality Tech, Patient and Family
Old Records: Summarized
Medications
-
Home Medications
�Medication �Instructions �Recorded
atorvastatin 80 mg tablet 80 mg PO DAILY High cholesterol 04/28/15
levothyroxine 112 mcg tablet 112 mcg PO DAILY Thyroid 04/28/15
metoprolol succinate 50 mg 50 mg PO DAILY Blood Pressure 12/06/23
tablet,extended release 24 hr
pyridostigmine bromide 60 mg tablet 60 mg PO TID myasthenia gravis 12/06/23
Patient Own Insulin Pump 0 units SC .VIA PUMP 02/10/24
clobetasol topical PRN dry skin 02/10/24
furosemide 20 mg tablet (Lasix) 20 mg PO PRN sweling 02/10/24
ketorolac 0.5 % eye drops 1 drp BOTH EYES QID 02/10/24
apixaban 5 mg tablet (Eliquis) 5 mg PO BID 30 days #60 tabs 02/19/24
lisinopril 5 mg tablet 5 mg PO DAILY #30 tabs 02/19/24
--- NOTE | 2025-04-20 10:13 | ED.GENMED ---
History of Present Illness
General
Chief Complaint: Swallowing Problem
Source: patient
Exam Limitations: none
Time Seen by Provider: 04/20/25 09:10
Nursing documentation reviewed up to this point in time: agreed with
History of Present Illness
History of Present Illness:
Chronic 80-year-old male past medical 0 CAD hypertension myasthenia gravis presenting to the emergency department today with concerns of difficulty swallowing this morning unable to take his morning medications. Also thinks his voice is garbled.
Has had similar symptoms in the past that did spontaneously resolve. Expected to have immunotherapy next week on Sunday. Denies any chest pain shortness of breath at this point.
Past History
Past History
ED Past Medical History: Arrthythmia (SA node dysfunction), CAD, HTN, Hypercholesterolemia, IDDM, Hypothyroidism and Other (Cricopharyngeus bar)
ED Past Surgical History: Cardiac (medtronic pacemaker 2007) and Other
Social History
Tobacco: Non-smoker
Alcohol: None
Drug: None
Personal: Other
Living: alone
Employment: Retired
Family History
Family History: Other (Sister with diabetes)
Review of Systems
Review of Systems
Allergies reviewed?: Yes
All Other Systems: ROS reviewed and negative except as documented in HPI and ROS
Phy Exam
Physical Exam
Physical Exam:
GENERAL: Alert , in no apparent distress
EYE: pupils equal and reactive
NECK: Supple, no significant adenopathy.
ENT: o/p clr, mmm.
CARDIAC: Regular rate and rhythm .
LUNGS: Clear breath sounds bilaterally, no acute respiratory distress, no wheezes/rales/rhonchi
ABDOMEN: Soft, without focal tenderness, no r/g, no cvat
NEUROLOGICAL: Alert and oriented, no focal neuro deficits
SKIN: Warm and dry, skin intact.
MUSCULOSKELETAL: No edema, well perfused.
PSYCH: Normal and appropriate interaction.
Course
Orders/Labs/Results
Orders:
Orders
04/20/25 09:20
Pft Nif [RESP] Urgent
Special Instructions: Hx of myasthenia gravis, needs NIF and Vital capacity. Trouble swallowing today
04/20/25 10:12
HEMATOLOGY CONSULT Routine
Consulting Provider: Alex Wadsworth
Was physician already notified: Yes
Reason for consult: Exacerbation of myasthenia, need plasmapheresis
04/20/25 10:13
IRAD CONSULT Routine
Consulting Provider: Nico Vaughn
Was physician already notified: Yes
Procedure being ordered, including laterality if applicable: Plasma exchange catheter, temporary
Acknowledgement that appropriate orders are entered: Yes
04/20/25 11:00
MethylPREDNISolone. [Solu-Medrol] 1,000 mg 0.9% Sodium Chloride 250 ml [Nss] 250 ml IV Q24H
04/20/25 11:11
Admit/Transfer Patient As Directed
Co-Sign Provider:
Level of Care: Inpatient admission
Assign to:: IMU- Intermediate Care
Physician / Group: deonte minor
Diagnosis: Myasthenia gravis flare
Reason for Hospitalization: Myasthenia gravis flare
Expected length of stay greater than two midnights?: Yes
ELOS- Estimated Length of Stay in days: 3
I certify the patient meets the requirements for IP care: Yes
04/20/25 11:23
Code Status As Directed
Resuscitation Status: Full Code
PRN Pain Medication Management As Directed
May give lesser potent ordered pain med per pt: Yes
preference::
Protocol:: Medication orders for pain may be administered in a
manner that supports deferring to patient preference
when the pt is:
- Requesting an ordered lesser potent pain medication.
Least to most potent pain medications are defined
as: acetaminophen < NSAID < tramadol < opioids
(morphine, oxycodone, hydromorphone).
- Requesting a lesser dose of the same medication IF
ORDERED.
- Requesting a less intrusive route of administration
if both routes are prescribed by the provider (PO <
IV).
04/20/25 11:26
NEUROLOGY CONSULT Urgent
Consulting Provider: Osmany Blue
Was physician already notified: Yes
Heparin 10,000 units .ROUTE .STK-MED ONE
Lidocaine 2% [Xylocaine 2% Mdv] 20 ml .ROUTE .STK-MED ONE
Nursing to Place Non Medication Order As Directed
Physician Order: Notify MD when med rec done
Above order entered?: Yes
04/20/25 11:33
CBC/With Diff [Complete Blood Count/With Diff] Urgent
CMP [Comprehensive Metabolic Panel] Urgent
Fibrinogen Routine
Prothrombin Time Routine
Is patient on Coumadin/Warfarin?: No
Comment: may add to blood in lab
04/20/25 11:37
Dextrose 50%-Water [Dextrose 50% Syringe] 12.5 grams IV [id number] PRN
Glucagon [GlucaGen] 1 mg IM PRN PRN
Bedside Glucose Monitoring As Directed
Frequency: AC&HS
Additional Instructions:: Change to q6h if pt on TPN, tube feeding or not eating
04/20/25 11:45
Patient Own Insulin Pump See Dose Instructions SC .VIA PUMP
04/20/25 12:00
Pantoprazole [Protonix IV] 40 mg IV DAILY
04/20/25 16:30
Insulin Aspart Corrective Low [Novolog Flexpen-Low Resistance] See Protocol SC AC
04/21/25 06:00
Complete Blood Count/With Diff IN AM
Comprehensive Metabolic Panel IN AM
Glycohemoglobin (HgbA1c) IN AM
Abnormal Lab Results
04/20/25
11:33
RBC 4.40 L 10^6/uL
(4.70-6.10)
RDW 14.6 H %
(11.5-14.5)
MPV 11.1 H fL
(7.4-10.4)
Lymphocytes % 20.0 L %
(20.5-51.1)
Monocytes % 10.6 H %
(1.7-9.3)
PT 15.2 H Sec
(11.4-14.6)
BUN 28 H mg/dl
(9-20)
Glucose 158 H mg/dl
(70-99)
04/20/25 11:33
04/20/25 11:33
Vital Signs
Initial and Last Documented VS:
Initial Vital Signs
Temp Pulse Resp BP Pulse Ox
97.6 F 76 18 116/57 93
04/20/25 08:37 04/20/25 08:37 04/20/25 08:37 04/20/25 08:37 04/20/25 08:37
Last Documented Vital Signs
Temp Pulse Resp BP Pulse Ox
97.7 F 56 16 143/59 99
04/20/25 11:55 04/20/25 11:55 04/20/25 11:55 04/20/25 11:55 04/20/25 11:55
MDM/Problems Addressed
MDM/Problems Addressed:
80-year-old male presenting to the emergency department today with concerns of trouble swallowing his pills this morning does a history of myasthenia gravis. Also feels his voice is garbled. On arrival vital signs are normal. Patient with normal
objective neurologic examination. Does have rise and fall of the palate on examination no obvious voice change. Patient in no distress. Case discussed with neurology recommending NIF test. Otherwise neurology recommending admission for
plasmapheresis as well as high-dose of steroid. Patient stable throughout ER stay. Will be admitted to medicine.
*Pulse Oximetry
SaO2: 93
Oxygen Mode of Delivery: Room air
Patient hypoxic: no (99)
*Critical Care Note
Total Time (30-74mins, 75-104mins- exclusive of procedures): Not Applicable
ED Attending Note
-
Portions of this chart may have been created with voice recognition software.� Occasional wrong word or��sound alike� substitutions may have occurred due to the inherent limitations of voice recognition software.
Discharge Plan
Departure
Patient Disposition: Admit
Date of Disposition: 04/20/25
Time of Disposition: 13:53
Admit to: Med/Surg
Admit to doctor: Htay
Presentation/result/management discussed w/ accepting MD/DO: Hospitalist
Patient with high blood pressure during this ER visit?: No
Condition: Good
Covid-19: Not Applicable
Discharge Problem:
Myasthenia gravis in crisis
Interventions
Interventions:
*Risk Screen - Suicide Last Done: 04/20/25 08:37
*General Assessment Last Done: 04/20/25 08:37
*Neglect/Abuse Screening Last Done: 04/20/25 09:44
*ED- Fall Risk Assessment Last Done: 04/20/25 11:37
ED-EENT Assessment Last Done: 04/20/25 10:40
XB-Ehtrmm-Tduvrlcuac Assessment Last Done: 04/20/25 10:40
ED- Pulmonary Assessment Last Done: 04/20/25 10:40
ED- Neurological Assessment Last Done: 04/20/25 10:40
ED Swallowing Screen Last Done: 04/20/25 10:40
--- NOTE | 2025-04-20 11:26 | HPS.HSE ---
Family Physician
-
Family Physician: Gary Norton
Chief Complaint
-
Dysphagia, slurred speech
History of Present Illness
80-year-old male with past medical history of CAD status post CABG, sick sinus syndrome status post pacemaker, hypertension, hyperlipidemia, insulin-dependent diabetes mellitus, hypothyroidism, myasthenia gravis came to the hospital with difficulty
swallowing and some slurred speech. Per patient his symptoms started last week however appeared to have gotten better then got worse again. Currently he denies any chest pain, shortness of breath. Denies any nausea, vomiting, diarrhea,
constipation. Denies any abdominal pain.
Medical History
Past Medical History
Past Medical History: Reports Other
Additional Past Medical History:
CAD status post CABG, sick sinus syndrome status post pacemaker, hypertension, hyperlipidemia, insulin-dependent diabetes mellitus, hypothyroidism, myasthenia gravis
Past Surgical History: Reports Cardiac (Pacemaker)
Social History
Tobacco: Non-smoker
Alcohol: None
Drug: None
Family History
Family History: Not pertinent
Allergies / Home Medications
Allergies reflects when Allergies were last updated in [facility].
Home Medications with original date entered in [facility]
Allergy/Medication List:
Allergies
Allergy/AdvReac Type Severity Reaction Status Date / Time
efgartigimod mary-fcab (From Allergy Rash Verified 04/20/25 08:37
Vyvgart)
Home Medications
atorvastatin 80 mg tablet 80 mg PO DAILY High cholesterol 04/28/15
metoprolol succinate 50 mg tablet,extended release 24 hr 50 mg PO DAILY Blood Pressure 12/06/23
pyridostigmine bromide 60 mg tablet 60 mg PO TID@,12, myasthenia gravis 12/06/23
Patient Own Insulin Pump 0 units SC .VIA PUMP Diabetes 02/10/24
amlodipine 2.5 mg tablet 2.5 mg PO DAILY Blood Pressure 04/20/25
apixaban 5 mg tablet (Eliquis) 5 mg PO BID Blood Clot Prevention/Tx 04/20/25
furosemide 20 mg tablet 40 mg PO DAILY@17 Fluid Retention/Swelling 04/20/25
furosemide 20 mg tablet 80 mg PO DAILY@08 Fluid Retention/Swelling 04/20/25
levothyroxine 125 mcg tablet 125 mcg PO DAILY@06 Thyroid 04/20/25
lisinopril 40 mg tablet 40 mg PO DAILY Blood Pressure 04/20/25
Review of Systems
-
History Source: Patient
A 12 point ROS was completed and negative except as noted: Yes
Neurological: Reports Other (dysphagia)
Physical Exam
Vital Signs
Vital Signs
Temp Pulse Resp BP Pulse Ox
97.6 F 67 16 117/51 93
04/20/25 08:37 04/20/25 10:00 04/20/25 10:00 04/20/25 10:00 04/20/25 10:16
Physical Exam
General: Well Nourished and No Apparent Distress
HEENT: Anicteric and Moist mucous membranes
Respiratory: Clear and Non Labored Respirations; No Wheezes
Cardiac: S1/S2 and Regular Rhythm
Breast: Deferred by me
GI: Soft, Non Tender, Non Distended and Normal Bowel Sounds
Rectal: Deferred by Provider
Genito-urinary: No Baeza
Musculoskeletal: No Edema
Neuro: Awake, Alert, Oriented, AO x 3 and Slurred Speech
Psych: Calm
Data Reviewed
-
Lab Data: Labs Reviewed by me and Discussed with Physician
Impression/Plan
-
Dysphagia slurred speech secondary to acute myasthenia gravis flareup
Has failed IVIG before
Neurology following
Start high-dose IV steroids, added PPI
Discussed with neurology, hematology and IR. IR guided catheter today followed by plasmapheresis
Continue to monitor cbc, monitor fibrinogen
Consult speech, if continues to fail then will need Dobbhoff tube. Evaluated, okay for IDDS4 diet with the liquids
hematology consulted for plasmapheresis
History of hypertension
Continue amlodipine, metoprolol
Hydralazine as needed
History of hypothyroidism
Continue with Synthroid
Diabetes mellitus on insulin pump
Continue with insulin pump
Accu-Chek
CAD status post CABG
Monitor
History of atrial flutter/A-fib, unclear chronicity
Continue with metoprolol, Eliquis
Sick sinus syndrome status post pacemaker
DVTppx
eliquis
Full code
I spent a total of 78 minutes with the patient or on the floor. More than 50% of this time involved counseling and coordination of care.
[2025-04-20] MEDS: SOLU-MEDROL 258 MG IV (11:42)
[2025-04-20 11:47] LABS: Hematocrit 39.3 % (39.0-52.0); Hemoglobin 13.2 g/dL (13.0-18.0); Mean Corp Hgb Conc. 33.6 g/dL (33.0-37.0); Mean Corpuscular Volume 89.3 fL (80.0-94.0); Nucleated Red Blood Cells % 0 % (-); Platelet Count 157 10^3/uL (130-400); Red Cell Dist. Width 14.6 % (11.5-14.5)
[2025-04-20 11:50] LABS: INR 1.17; PT 15.2 Sec (11.4-14.6)
[2025-04-20 11:51] LABS: Fibrinogen 354 MG/DL (199-459)
--- NOTE | 2025-04-20 12:02 | CON.ONC ---
Consultation
-
Date Consultation Requested: 04/20/25
Date Consultation Performed: 04/20/25
Requesting Provider: Mirza
Performing Provider: Ermelinda
Reason for Consultation: Plasmapheresis - MG
Impression
Impression
Myasthenia gravis
dysphagia
Plan
Plan
1. Myasthenia gravis - w/ progressive neuromuscular weakness and dysphagia
-Dr. Blue, neurology has recommended plasmapheresis
-plasmapheresis will be arranged through the [facility]
-follow CBC, coagulation panel, and fibrinogen
-plasmapheresis orders will be placed on patient's chart
-consent obtained
Patient History
History of Present Illness
80y/o male seen in hematology consultation today regarding h/o myasthenia gravis, in need of plasmapheresis.
The patient presented to the [facility] w/ myasthenia crisis for which his neurologist, Dr. Blue, is recommending plasmapheresis.
Apparently the patient has been having progressive neuromuscular weakness w/ worsening dysphaghia. He denies SOB at rest or chest pain.
Past-Medical/Surgical History
PMH:
myasthenia gravis
Arrthythmia (SA node dysfunction)
CAD
HTN
Hypercholesterolemia
IDDM
Hypothyroidism
ED Past Surgical History:
Cardiac (medtronic pacemaker 2007)
Social History
Tobacco: Non-smoker
Alcohol: None
Family History
Family History: Other (Sister with diabetes)
Allergies: Vyvgart
Patient Medication
�Medication �Instructions �Recorded �Confirmed �Last Taken �Type
atorvastatin 80 mg tablet 80 mg PO DAILY High cholesterol 04/28/15 04/20/25 02/10/24 08:00 History
metoprolol succinate 50 mg 50 mg PO DAILY Blood Pressure 12/06/23 04/20/25 02/10/24 08:00 History
tablet,extended release 24 hr
pyridostigmine bromide 60 mg tablet 60 mg PO TID myasthenia gravis 12/06/23 04/20/25 02/10/24 08:00 History
Patient Own Insulin Pump 0 units SC .VIA PUMP Diabetes 02/10/24 04/20/25 02/10/24 08:00 History
amlodipine 2.5 mg tablet 2.5 mg PO DAILY Blood Pressure 04/20/25 04/20/25 Unknown History
apixaban 5 mg tablet (Eliquis) 5 mg PO BID Blood Clot 04/20/25 04/20/25 Unknown History
Prevention/Tx
furosemide 20 mg tablet 40 mg PO DAILY@17 Fluid 04/20/25 04/20/25 Unknown History
Retention/Swelling
furosemide 20 mg tablet 80 mg PO DAILY@08 Fluid 04/20/25 04/20/25 Unknown History
Retention/Swelling
levothyroxine 125 mcg tablet 125 mcg PO DAILY@06 Thyroid 04/20/25 04/20/25 Unknown History
lisinopril 40 mg tablet 40 mg PO DAILY Blood Pressure 04/20/25 04/20/25 Unknown History
timolol maleate 0.5 % eye drops 1 drp LEFT EYE BID Eye Condition 04/20/25 04/20/25 Unknown History
Active Medications
Generic Name Dose Route Start Last Admin
Trade Name Freq PRN Reason Stop Dose Admin
Dextrose 12.5 grams 04/20/25 11:37
Dextrose 50% (0.5 Grams/Ml) 50 Ml Syringe IV 05/18/25 11:36
[id number] PRN
hypoglycemia
Protocol
Glucagon 1 mg 04/20/25 11:37
Glucagon 1 Mg Vial IM 05/18/25 11:36
PRN PRN
hypoglycemia
Protocol
Methylprednisolone Sodium 258 mls @ 258 mls/hr 04/20/25 11:00 04/20/25 11:42
Succinate 1,000 mg/ Sodium IV 04/24/25 11:59 258 mls
Chloride Q24H JACEK Administration
Insulin Aspart 0 units 04/20/25 16:30
Insulin Aspart Low Resistance 300 Units/3 Ml Pen.Injctr SC 05/18/25 16:29
AC JACEK
Protocol
Non-Formulary Medication 0 units 04/20/25 11:45
Patient Own Insulin Pump SC 05/18/25 11:44
.VIA PUMP JACEK
Pantoprazole Sodium 40 mg 04/20/25 12:00
Pantoprazole Sodium 40 Mg/10 Ml Vial IV 05/18/25 11:59
DAILY JACEK
Review of Systems
-
A limited ROS was performed w/ pertinent findings as per HPI.
Physical Exam
-
General: Well Developed and No Apparent Distress
Cardiology: Normal Sinus Rhythm
Pulmonary: Clear
Labs
Lab Results
WBC 5.7 10^3/uL (4.8-10.8) 04/20/25 11:33
RBC 4.40 10^6/uL (4.70-6.10) L 04/20/25 11:33
Hgb 13.2 g/dL (13.0-18.0) 04/20/25 11:33
Hct 39.3 % (39.0-52.0) 04/20/25 11:33
MCV 89.3 fL (80.0-94.0) 04/20/25 11:33
MCH 30.0 pg (27.0-31.0) 04/20/25 11:33
MCHC 33.6 g/dL (33.0-37.0) 04/20/25 11:33
RDW 14.6 % (11.5-14.5) H 04/20/25 11:33
Plt Count 157 10^3/uL (130-400) 04/20/25 11:33
MPV 11.1 fL (7.4-10.4) H 04/20/25 11:33
Abs Immat Gran (auto) 0.0 10^3/uL (0-0.05) 04/20/25 11:33
Absolute Neuts (auto) 3.8 10^3/uL (1.4-6.5) 04/20/25 11:33
Absolute Lymphs (auto) 1.2 10^3/uL (1.2-3.4) 04/20/25 11:33
Absolute Monos (auto) 0.6 10^3/uL (0.1-0.6) 04/20/25 11:33
Absolute Eos (auto) 0.1 10^3/uL (0-0.7) 04/20/25 11:33
Absolute Basos (auto) 0.0 10^3/uL (0-0.2) 04/20/25 11:33
Immature Gran % 0.3 % (0-0.5) 04/20/25 11:33
Neutrophils % 67.0 % (42.2-75.2) 04/20/25 11:33
Lymphocytes % 20.0 % (20.5-51.1) L 04/20/25 11:33
Monocytes % 10.6 % (1.7-9.3) H 04/20/25 11:33
Eosinophils % 1.4 % (0-6) 04/20/25 11:33
Basophils % 0.7 % (0-2) 04/20/25 11:33
Vital Signs
Vital Signs
Temp Pulse Resp BP Pulse Ox
97.6 F 67 16 117/51 98
04/20/25 08:37 04/20/25 10:00 04/20/25 10:00 04/20/25 10:00 04/20/25 10:40
[2025-04-20 12:07] LABS: ALT (SGPT) 24 U/L (0-50); AST (SGOT) 35 U/L (17-59); Albumin 4.2 g/dl (3.5-5.0); Alkaline Phosphatase 87 U/L (38-126); Blood Urea Nitrogen 28 mg/dl (9-20); Calcium 9.0 mg/dl (8.4-10.2); Carbon Dioxide 30 mmol/L (22-30); Chloride 106 mmol/L (98-107); Estimated Creatinine Clearance 44 ml/min; Glucose 158 mg/dl (70-99); Potassium 4.6 mmol/L (3.5-5.1); Sodium 140 mmol/L (135-145); Total Protein 7.0 g/dl (6.3-8.2); eGFR > 60.00
[2025-04-20 14:30] LABS: APTT 30.3 Sec (23.4-35.0)
[2025-04-20] MEDS: PROTONIX IV 40 MG IV (14:30)
--- NOTE | 2025-04-20 14:38 | CM ---
CM reviewed chart, patient seen bedside, initial assessment completed. Patient is a 80-year-old male past medical 0 CAD hypertension myasthenia gravis presenting to the emergency department today with concerns of difficulty swallowing this morning
unable to take his morning medications.
Patient resides independently in a two level home, one step to enter from garage into kitchen. Patient reports bedroom on second floor, has been mostly sleeping in the lazy boy recliner downstairs. Patient reports having a cane and walker in the
home, does not use either device. Patient reports VN in the past (reports years ago), denies SNF. PCP Gary Norton, [facility]. Patient denies insecurities at home. Patient reports his son lives locally and will assist with
shopping, groceries, and laundry. CM will continue to follow for all discharge planning needs.
Plan; home, watch for VN needs pending medical workup
--- NOTE | 2025-04-20 14:41 | PTOTSP ---
Speech Pathology
80M with admission for myasthenia gravis flare p/w increased difficulty swallowing. Presents with s/s concerning for oropharyngeal dysphagia, likely acute on chronic, characterized by intermittent throat clearing with thin liquids, intermittent
coughing with puree, and suspected pharyngeal stasis. Per patient, he has had similar flare ups in the past that spontaneously resolved. He also notes worsening speech this date. Aspiration risk is increased 2/2 coughing with liquids and solids,
current MG flare, and endorsement of difficulty swallowing. Discussed recommendations with patient who was receptive to suggested diet level and able to retain/utilize safe swallowing strategies.
Recommend:
1. Trial puree (IDDSI 4) and thin liquids VIA single small sips
2. Meds crushed in puree vs non-oral means
3. Safe swallowing strategies � cyclic ingestion (Bite then sip, bite then sip); small amounts at one time; small bites; single sips; slow rate; if overt s/s of aspiration, stop eating; HOB elevated, FULL supervision
4. Reflux precautions � remain upright 30 minutes post meals
5. If overt s/s of aspiration, make NPO and await speech re-evaluation
6. JOURNEY LINEMAN service to follow up re: to assess diet level tolerance and upgrade as able; train safe swallowing strategies; consider instrumental assessment if symptoms do not resolve to obtain safest and least restrictive diet level
--- NOTE | 2025-04-20 17:42 | PTCARENOTE ---
Patient arrived to room from ED via stretcher; able to ambulate to bed without difficulty. Patient ordered NPO but was seen by ST in ED and recommended IDD4 with thin liquids. Contacted Dr Black who confirmed that patient may have diet and cancel
NPO. Swallow eval not done on unit as patient cleared by ST prior to arrival. On assessment it was noted that patient has own insulin pump infusing via abdomen with sensor on R inner thigh. Patient stated he did not want to remove pump, and stated
he was previously instructed by his endocrine physician not to remove pump in the hospital. Patient ordered novolog sq insulin sliding scale coverage; per Dr Black, patient may use his own insulin pump instead. This nurse contacted pharmacy and
spoke with Antoinette who stated order for own insulin pump was active. This nurse questioned that there was not a place to document on MAR for patient to use his own. Antoinette stated she was going to check order, then came back on the phone to say it
was entered incorrectly. This nurse provided name of physician who entered order, asked if she could contact physician directly for smoother correction of order; Antoinette stated she would contact him. Await updated order.
--- NOTE | 2025-04-20 17:51 | PTCARENOTE ---
Nurse from [facility] arrived to do plasma phoresis. Consent on chart.
[2025-04-20] MEDS: NSS 1000 IV (18:14)
[2025-04-20] MEDS: PATIENT'S OWN INSULIN PUMP SC ×2 (18:20→22:34)
[2025-04-20 18:24] LABS: Glucose - Point of Care 139 mg/dl (70-99)
--- NOTE | 2025-04-20 18:30 | PTCARENOTE ---
Patient due for lasix and mestinon. Nurse Hayder who is here from [facility] stated to hold until after plasma phoresis procedure.
--- NOTE | 2025-04-20 18:43 | PTCARENOTE ---
Orders for plasma phoresis stamped 'scanned' into chart. Found on chart and copy sent to pharmacy; dept aware. Stat sticker placed on order.
--- NOTE | 2025-04-20 18:44 | PTCARENOTE ---
Accu check 139; patient stated he did not administer extra insulin.
--- NOTE | 2025-04-20 19:46 | PTCARENOTE ---
Patient has ordered 3g Calcium gluconate with 1g magnesium sulfate in 250cc NS. Per Hayder [place] RN- spoke with [facility] Surgeon does not want magnesium sulfate with the calcium. I spoke with Dr. Wadsworth via telephone and received
verbal for only 3g IV calcium gluconate- confirmed this is what Dr. Wadsworth wants. Patient updated, spoke with son via phone. Awaiting for 3g IV calcium in 250cc NS from pharmacy prior to plasma exchange at this time.
[2025-04-20] MEDS: CALCIUM GLUCONATE 10% INJECTION 280 MG IV (19:53)
[2025-04-20 22:12] LABS: Glucose - Point of Care 163 mg/dl (70-99)
[2025-04-20] MEDS: MESTINON 60 MG PO (22:27)
[2025-04-20] MEDS: ELIQUIS 5 MG PO (22:28)
[2025-04-20] MEDS: LASIX 40 MG PO (22:28)
--- NOTE | 2025-04-20 23:11 | PTCARENOTE ---
Patient tolerated plasma exchange. Completed approximately 2200. Patient swallowed pills crushed in applesauce. Wet voice after then, pt utilized [place] for phlegm independently. Voice more clear now. Sp02 mid 90s on RA. Ambulated to BR, SBA.
Denied any dizziness. V-paced on telemetry, HR 80-110s. Brushed teeth. Voided in toilet. Foam placed to gluteal cleft for what appears to be stage 2. Denies any pain. HS blood sugar 163. Insulin sensor reading 143, no insulin given per insulin pump
screen. IV appears to be infiltrated. VAT aware and to place new site. All patient's questions answered. Call meza within reach.
[2025-04-21] VITALS (12 sets, daily range): BP systolic 108–134; BP diastolic 55–76; BMI 25.6
[2025-04-21] MEDS: SYNTHROID 125 MCG PO (05:37)
[2025-04-21 05:53] LABS: Hematocrit 37.0 % (39.0-52.0); Hemoglobin 12.4 g/dL (13.0-18.0); Mean Corp Hgb Conc. 33.5 g/dL (33.0-37.0); Mean Corpuscular Volume 89.2 fL (80.0-94.0); Nucleated Red Blood Cells % 0 % (-); Platelet Count 150 10^3/uL (130-400); Red Cell Dist. Width 14.6 % (11.5-14.5)
[2025-04-21 06:11] LABS: INR 2.05; PT 23.2 Sec (11.4-14.6)
[2025-04-21 06:12] LABS: APTT 39.3 Sec (23.4-35.0)
[2025-04-21 06:15] LABS: ALT (SGPT) 12 U/L (0-50); AST (SGOT) 20 U/L (17-59); Albumin 4.0 g/dl (3.5-5.0); Alkaline Phosphatase 26 U/L (38-126); Blood Urea Nitrogen 32 mg/dl (9-20); Calcium 8.9 mg/dl (8.4-10.2); Carbon Dioxide 28 mmol/L (22-30); Chloride 108 mmol/L (98-107); Estimated Creatinine Clearance 52 ml/min; Glucose 163 mg/dl (70-99); Potassium 4.0 mmol/L (3.5-5.1); Sodium 140 mmol/L (135-145); Total Protein 5.5 g/dl (6.3-8.2); eGFR > 60.00
[2025-04-21 06:17] LABS: Fibrinogen 126 MG/DL (199-459)
[2025-04-21 08:34] LABS: Glucose - Point of Care 174 mg/dl (70-99)
[2025-04-21 08:38] LABS: Glycohemoglobin (HgbA1c) 7.1 % (4.0-5.6)
[2025-04-21] MEDS: PATIENT'S OWN INSULIN PUMP 3 UNITS SC (08:54)
[2025-04-21] MEDS: ELIQUIS 5 MG PO (08:56)
[2025-04-21] MEDS: MESTINON 60 MG PO ×2 (08:56→11:59)
--- NOTE | 2025-04-21 09:25 | W.PN.NEURO.1 ---
Today's Communication / Plan
-
Continue high dose methylprednisolone up to 5 infusions
Continue plasma exchange potentially up to 5 treatments
Continue patient's apixaban
Follow vital capacity with goal of greater than 20 ml per kilogram, maximal inspiratory flow greater than 30 cm water pressure, maximal expiratory force greater than 40 cm water pressure
Speech therapy evaluation
Neuro Assessment/Plan
Assessment
Acute exacerbation of previously diagnosed myasthenia gravis with the patient experiencing worsening dysphagia as well as neck weakness despite routine use of Rozanolixizumab.
Plan
Continue high dose methylprednisolone up to 5 infusions
Continue plasma exchange potentially up to 5 treatments
Continue patient's apixaban
Follow vital capacity with goal of greater than 20 ml per kilogram, maximal inspiratory flow greater than 30 cm water pressure, maximal expiratory force greater than 40 cm water pressure
Speech therapy evaluation
Likely will need to change outpatient myasthenia gravis treatment from Rozanolixizumab to the use of Zilucoplan or Ravulizumab
Goal of normoglycemia
Will follow
Subjective/Objective
Subjective Data
Date of Service: April 21, 2025
Patient reports swallowing is improved
Objective Data
Vital Signs
Temp Pulse Resp BP Pulse Ox
36.6 C 79 15 124/55 98
04/21/25 07:56 04/21/25 08:00 04/21/25 08:00 04/21/25 08:00 04/21/25 08:00
Lab Results
04/21/25 05:36
04/21/25 05:36
PT 23.2 Sec (11.4-14.6) H 04/21/25 05:36
INR 2.05 04/21/25 05:36
APTT 39.3 Sec (23.4-35.0) H 04/21/25 05:36
Sodium 140 mmol/L (135-145) 04/21/25 05:36
Potassium 4.0 mmol/L (3.5-5.1) 04/21/25 05:36
BUN 32 mg/dl (9-20) H 04/21/25 05:36
Glucose 163 mg/dl (70-99) H 04/21/25 05:36
Calcium 8.9 mg/dl (8.4-10.2) 04/21/25 05:36
Patient Allergies
efgartigimod mary-fcab (From [employer]) Allergy (Verified 04/20/25 08:37)
Rash
Review of Systems
-
History Source: Patient
All other systems: Reviewed and negative
EENT: Negative Blurry Vision or Swallowing Difficulty
Respiratory: Negative Trouble Breathing
Cardiac: Negative Chest Pain
Musculoskeletal: Negative Neck Pain
Physical Exam
-
General: No Apparent Distress and Appears Stated Age
Eyes: Round OU, [place] Conjunctivae and No Ptosis
HEENT: Anicteric and Moist Mucous Membranes
Neck: Full Range of Motion
Respiratory: No Dyspnea
Cardiac: No JVD
GI: Non-distended
Skin: Unremarkable
Extremities: No Clubbing, No Cyanosis and No Edema
Psych: Intact Judgement/Insight
Extended Neurological Exam
Mood & Affect: Mood Unremarkable and Affect Unremarkable
Attention Span & Concentration: Awake, Alert, Interactive and No Difficulty with 2 Step Request
Memory: Unremarkable
Tremor: Hand Tremor Absent and Head Tremor Absent
Speech: Quality Unremarkable and Quantity Unremarkable
Cranial Nerve II: Left Eye: Pupillary Size Unremarkable and Visual Nelson Grossly Intact
Cranial Nerve II: Right Eye: Pupillary Size Unremarkable and Visual Nelson Grossly Intact
Cranial Nerves III, IV, : Extraocular Movement: Grossly Intact
Cranial Nerve VII: Facial Symmetry: Other (Unable to maintain eyes closed against force; tongue protrusion in cheek is full bilaterally)
Cranial Nerve VIII: Hearing: Unremarkable Hearing to Normal Conversational Volume
Cranial Nerve XI: Shoulder Shrug: Unremarkable
Muscle Strength, Overall: Spontaneously Moves (In bilateral upper extremities)
Muscle Bulk & Tone: Bulk Unremarkable and Tone Unremarkable
Touch Sensation: Unremarkable
Coordination: Reaches for Objects without Difficulty
Data Reviewed
-
Labs: Report Reviewed
Reviewed with: Physician
Old Records: Summarized
Past History
Past History
ED Past Medical History: Arrthythmia (SA node dysfunction), CAD, HTN, Hypercholesterolemia, IDDM, Hypothyroidism and Other (Cricopharyngeus bar, Myasthenia Gravis)
ED Past Surgical History: Cardiac (medtronic pacemaker 2007) and Other
Social History
Tobacco: Non-smoker
Alcohol: None
Drug: None
Personal: Other
Living: alone
Employment: Retired
Family History
Family History: Other (Sister with diabetes)
Medications
-
Medications:
Generic Name Dose Route Start Last Admin
Trade Name Freq PRN Reason Stop Dose Admin
Amlodipine Besylate 2.5 mg 04/21/25 08:00
Amlodipine 2.5 Mg Tablet PO 05/19/25 07:59
DAILY JACEK
Apixaban 5 mg 04/20/25 20:00 04/21/25 08:56
Apixaban (Eliquis) 5 Mg Tablet PO 05/18/25 19:59 5 mg
BID JACEK Administration
Bisacodyl 10 mg 04/20/25 17:06
Bisacodyl 10 Mg Rectal Suppository RECTAL 05/18/25 17:05
[id number] PRN
constipation
Dextrose 12.5 grams 04/20/25 11:37
Dextrose 50% (0.5 Grams/Ml) 50 Ml Syringe IV 05/18/25 11:36
[id number] PRN
hypoglycemia
Protocol
Furosemide 80 mg 04/21/25 08:00
Furosemide 20 Mg Tablet PO 05/19/25 07:59
DAILY@08 JACEK
Furosemide 40 mg 04/20/25 17:00 04/20/25 22:28
Furosemide 20 Mg Tablet PO 05/18/25 16:59 40 mg
DAILY@17 JACEK Administration
Glucagon 1 mg 04/20/25 11:37
Glucagon 1 Mg Vial IM 05/18/25 11:36
PRN PRN
hypoglycemia
Protocol
Hydralazine HCl 5 mg 04/20/25 13:38
Hydralazine 20 Mg/Ml Vial IV 05/18/25 13:37
Q4HPRN PRN
SBP>160
Methylprednisolone Sodium 258 mls @ 258 mls/hr 04/20/25 11:00 04/20/25 11:42
Succinate 1,000 mg/ Sodium IV 04/24/25 11:59 258 mls
Chloride Q24H JACEK Administration
Sodium Chloride 1,000 mls @ 60 mls/hr 04/20/25 17:06 04/20/25 18:14
Nss IV 1,000 mls
.[id number] JACEK Administration
Albumin Human 12.5 grams in 250 mls @ 0 mls/hr 04/20/25 19:00
Albumin 5% INTRACATH 04/21/25 18:59
.Q0M JACEK
Levothyroxine Sodium 125 mcg 04/21/25 06:00 04/21/25 05:37
Levothyroxine 125 Mcg Tablet PO 05/19/25 05:59 125 mcg
DAILY@06 JACEK Administration
Lisinopril 40 mg 04/21/25 08:00
Lisinopril 20 Mg Tablet PO 05/19/25 07:59
DAILY JACEK
Metoprolol Succinate 50 mg 04/21/25 08:00
Metoprolol 50 Mg Extended Release Tablet PO 05/19/25 07:59
DAILY JACEK
Pantoprazole Sodium 40 mg 04/20/25 12:00 04/20/25 14:30
Pantoprazole Sodium 40 Mg/10 Ml Vial IV 05/18/25 11:59 40 mg
DAILY JACEK Administration
Patient Own Medication 0 units 04/20/25 18:15 04/21/25 08:54
Insulin Pump - Patient's Own SC 05/18/25 18:14 3 units
ACHS JACEK Administration
Polyethylene Glycol 17 grams 04/20/25 17:06
Polyethylene Glycol Powder 17 Grams Packet PO 05/18/25 17:05
DAILYPRN PRN
constipation
Pyridostigmine [place] 60 mg 04/20/25 17:00 04/21/25 08:56
Pyridostigmine 60 Mg Tablet PO 05/18/25 16:59 60 mg
TID@08,12,17 JACEK Administration
Senna/Docusate Sodium 1 tablet 04/20/25 17:06
Docusate W/Senna (Carly-Colace) Tablet PO 05/18/25 17:05
BIDPRN PRN
constipation
Sodium Chloride 0 flush 04/20/25 13:00
Sodium Chloride 0.9% (Flush) Syringe IV 05/18/25 12:59
PER PROTOCOL JACEK
[2025-04-21] MEDS: TOPROL XL 50 MG PO (09:43)
[2025-04-21] MEDS: ZESTRIL 40 MG PO (09:44)
[2025-04-21] MEDS: PROTONIX IV 40 MG IV ×2 (09:44→21:43)
[2025-04-21] MEDS: NORVASC 2.5 MG PO (09:44)
[2025-04-21] MEDS: LASIX 80 MG PO (09:44)
[2025-04-21] MEDS: NSS (PRESERVATIVE FREE) 10 ML IV ×2 (09:51→21:43)
--- NOTE | 2025-04-21 10:06 | PN.DE.MGMTRT ---
Insulin Management
- -
04/21/2025 Diabetes Management Consult
Patient admitted 04/20 with difficulty swallowing. PMH CAD s/p CABG, sss with pacemaker, HTN, HLD, type 1 diabetes, hypothyroid, myasthenia gravis. Patient known to me from both in patient and outpatient care. Prior to admission was using the
Medtronic pump with Guardian Sensor, novolog insulin and extended wear infusion set. A1C on admission 6.9%, cr 1.1, eGFR > 60.
Patient is awake alert and oriented able to discuss diabetes care. States he sees Levar JIANG at [facility]. The sensor for his pump was just replaced. Patient is able to continue to use his pump to bolus for meals and corrections.
Set change is not due until Sunday, son will bring supplies.
Pump Settings:
Basal CHO correction
12am .225 12 40
4am .250 12 40
6am .55 12 40
8AM .6 12 40
12pm .55 12 40
4am .4 12 40
24 hour basal total 10.3
Patient will continue insulin pump
Discussed with nurse
Will follow
Diabetes History
- -
Type of Diabetes: 1
Pre-Admission Diabetes Regimen
04/20/25 04/21/25
11:33 05:36
Creatinine 1.2 1.1
Lab Results
Hemoglobin A1c 7.1 % (4.0-5.6) H 04/21/25 05:36
Insulin Pump Settings
IP Diabetes Regimen
04/20/25 04/20/25 04/20/25
11:33 18:12 22:01
Glucose 158 H
POC Glucose 139 H 163 H
04/21/25 04/21/25
05:36 08:23
Glucose 163 H
POC Glucose 174 H
Meal type: Dinner
Amount consumed: 50%
Patient Education
--- NOTE | 2025-04-21 10:37 | W.PN.HOSP.TC ---
Today's Communication/Plan
-
IV steroids. Plasma exchange
Aspiration precautions
Hold DWIGHT and loop diuretics
Follow BMP closely
Avoid excessive hypotension
PT/speech eval
Assessment / Plan
Assessment / Plan
Impression:
Presentation with worsening fatigue, motor aphasia and dysphagia.
Myasthenia gravis flare
Dysphagia with aspiration risk secondary to above
Conditions prior to admission
Essential hypertension
Dyslipidemia
IDDM on insulin pump.
CAD with history of CABG.
A flutter.
Anticoagulation with Eliquis.
History of TIA/CVA
Hypothyroidism on replacement.
Plan:*
Myasthenia gravis flare.
Patient presents with worsening fatigue during the day, garbled speech and swallowing problem.
On Rozanolixizumab [employer]
Recent flare requiring plasma exchange and systemic steroids treatment admitted on February 2025
Initiated on plasmapheresis for session 04/20/2025. Plan for every 48 hours 3-5
IV Solu-Medrol
Continue pyridostigmine
Aspiration precautions
Speech and swallow eval. Diet advanced to dysphagia/pur�ed with thin liquids
IDDM.
Continue insulin pump.
Adjust regimen with expectation of steroid-induced hyperglycemia
CAD status post CABG
Recent echocardiogram with preserved EF.
Monitor volume status closely.
Noted acute kidney injury while on plasmapheresis recent admission.
Noted marginal BP. Hold lisinopril and furosemide. Follow BMP.
Continue metoprolol and Norvasc
A flutter
Rate control with metoprolol.
Continue anticoagulation with Eliquis.
Hypothyroidism on replacement
Anticipated Discharge: > 48 hours
Subjective/Interval History
-
Date of Service: April 21, 2025
Objective Data
-
Labs:
Laboratory Results
04/21/25
05:36
WBC 7.3
Hgb 12.4 L
Hct 37.0 L
Plt Count 150
PT 23.2 H
INR 2.05
APTT 39.3 H
Sodium 140
Potassium 4.0
Chloride 108 H
Carbon Dioxide 28
BUN 32 H
Creatinine 1.1
Glucose 163 H
Calcium 8.9
Total Bilirubin 1.3
AST 20
ALT 12
Alkaline Phosphatase 26 L
Vital Signs:
Vital Signs
Temp Pulse Resp BP Pulse Ox
97.8 F 90 15 124/55 98
04/21/25 07:56 04/21/25 09:43 04/21/25 08:00 04/21/25 09:43 04/21/25 08:00
I&O
04/20/25 04/21/25 04/22/25
06:59 06:59 06:59
Output Total 775 / 775
Balance -775 / -775
Physical Exam
-
General: Well Developed and No Apparent Distress
HEENT: Normocephalic, Atraumatic and Moist Mucous Membranes
Respiratory: Clear to Auscultation
Cardiac: Regular Rhythm and S1/S2; Negative Murmur, Rub or Gallop
GI: Soft, Nontender, Nondistended and Normal Bowel Sounds; Negative Organomegaly
Rectal: Deferred by Provider
Musculoskeletal: No Clubbing, No Cyanosis and No Edema
Skin: Negative Rash
Neuro: Nonfocal/Grossly Intact
[2025-04-21] MEDS: PT'S OWN INSULIN PUMP - NovoLOG SC ×2 (10:46→18:14)
--- NOTE | 2025-04-21 11:02 | PTCARENOTE ---
Assumed care of patient at beginning of this shift from previous RN. Patient due for Lasix 80mg po, Norvasc 2.5mg, Toprol XL 50mg and Zestril 40mg this morning. BP overnight ranged from 91/58 to 131/65 with morning BP 124/55 and HR 70s. TT sent to
Dr Hernandez for review; response from him ok to give meds. Meds administered as ordered. Dr Hernandez up to see patient since; lasix and lisinopril currently on hold now and IVF d/c'd.
Patient ambulating x1 assist without difficulty; taking meds crushed in applesauce and tolerating current diet without difficulty. Seen by ST; see her updated note. See worklist for full assessment and vital signs.
[2025-04-21] MEDS: NSS IV (11:49)
[2025-04-21] MEDS: SOLU-MEDROL 258 MG IV (11:59)
[2025-04-21 12:12] LABS: Glucose - Point of Care 228 mg/dl (70-99)
[2025-04-21] MEDS: PT'S OWN INSULIN PUMP - NovoLOG 5.5 UNIT SC (12:55)
--- NOTE | 2025-04-21 13:25 | W.PN.UPDATE ---
Addendum entered and electronically signed by Haris Hernandez MD 04/21/25 13:30:
NPO pending VSE in AM
Maintenance IV fluids
Original Note:
Update Note
Progress Note Update
Episode of retching and hematemesis with food intake.
Hemodynamically stable.
Hold Eliquis.
Follow hemoglobin.
Antiemetics.
Increase PPI to twice daily.
GI evaluation
Aspiration precautions
--- NOTE | 2025-04-21 13:26 | PTCARENOTE ---
Addendum entered by Berna Velez RN 04/21/25 13:32:
Patient NPO. IVF ordered: D51/2NS @ 75ml/hr; pharmacy to verify.
Original Note:
Patient had choking episode after beginning to eat his IDD4 lunch while sitting in chair; was able to use call meza. This nurse walking into room and saw patient choking/coughing, making sound with cough but unable to say any words. Attempted
yankaur and deep suctioning without success. Drooling noted; thick white with blood noted in basin. Assisted to bed x3. Rapid called but then cancelled d/t patient able to say short sentence once back in bed. He denied nausea. TT sent to both Pearl
and Dr Hernandez. Both came to room to assess patient. Eliquis placed on hold per Dr Hernandez, as well as GI consult and Hg Q6h. ST currently in room with patient.
[2025-04-21] MEDS: D5/0.45%NACL 1000 IV (13:35)
--- NOTE | 2025-04-21 13:41 | CON.GI ---
Addendum entered and electronically signed by Malik Ledesma MD 04/21/25 16:02:
I personally performed a history and physical exam of the patient and discussed management with the resident. I reviewed the resident's note and agree with the documented findings and plan of care HPI/CC.
Mr. Thomas is a 80-year-old male past medical history of myasthenia gravis, a flutter on Eliquis, sick sinus syndrome status post pacemaker, diabetic on insulin pump, CAD status post CABG, TIA/CVA presenting with dysphagia. Found to have myasthenia's
gravis exacerbation. Today after lunch, he had food get stuck and was coughing significantly and had a small amount of frothy vomitus with about a lore sized amount of blood. He was able to bring some of the food back up. His repeat hemoglobin
afterwards was stable.
Most likely, the blood is due to irritation exacerbated by Eliquis. Given the small amount of blood, stable Hb, no further bleeding, no need for further evaluation at this time. Continue to trend hemoglobin. Discussed with hospitalist can hold
sahra's Eliquis and resume tomorrow if hemoglobin remained stable with no further bleeding. Continue IV PPI twice daily for now, if no further bleeding will bring down to daily. In regards to his dysphagia, this is likely due to his myasthenia
gravis flare. I discussed with neurology and hospitalist.
Original Note:
Consultation
-
Date/Time Consultation Requested: 04/21/2025
Date/Time Consultation Performed: 04/21/2025
Requesting Provider: Haris Hernandez
Performing Provider: Zuri Ledesma
Reason for Consultation: Dysphagia, Wretching, Hematemesis
Medical History
Chief Complaint / HPI
Chief Complaint: Dysphagia
History of Present Illness:
Shree is an 80 year old man with a history of Myasthenia Gravis w/ past flares requiring hospitalization, A flutter (on Eliquis), sick sinus syndrome s/p pacemaker, IDDM on insulin pump, hypertension, hyperlipidemia, CAD s/p CABG x3,
hypothyroidism, h/o TIA/CVA who presented with an episode of dysphagia and inability to swallow food/medication that started yesterday.
He noticed difficulty swallowing food/medication that started yesterday. These symptoms were not associated with any nausea, vomiting, abdominal pain, bowel changes, or systemic symptoms. He did not report any vomiting or bloody emesis at that time,
but he did cough/retch for several minutes to try and bring back up food which was caught in his throat. After this, he came to the ED where he was noted to have some slurred speech. He was seen by speech pathology, put on IDDSI 4 Diet and started
on treatment for MG flare high dose steroids. He was able to eat IDDSI 4 dinner last night and breakfast this am without issue or GI sx. However, this afternoon around 1pm he was eating lunch and began experiencing dysphagia again. When he coughed
up the food in his throat it was noted that there was some blood. The amount was minimal, the vomitus was frothy. He did not report any throat pain, odynophagia, or abd pain during that time.
He denies any prior NSAID use or history of PUD, GERD, or duodenal ulcers. He is on Eliquis for A Flutter which was taken this morning, but put on hold after blood tinged emesis. His hgb on admission was 13.2 on admission and 12.4 this morning. He
had an EGD with Dr. Bowser in 2022 which showed no abnormalities in the mucosa of the stomach, esophagus or duodenum. No bx taken at that time. Of note, he had a PEG tube placed in [facility] in 2022 due to reported complication from an MG flare. There
is no history of esophageal varices. He is not on a PPI as outpatient.
GI was consulted for the bloody emesis.
Now he is lying comfortably in bed, awake, alert and talking. He is having no abd pain, throat pain, odynophagia, lightheadedness, dizziness, cp, nausea, vomiting. He had a bowel movement since admission which was soft, nonbloody, not black or
tarry. He remains hemodynamically stable and has not had another episode of bloody emesis. He is currently NPO, pending VSE in the AM. Repeat H&H pending.
Past Medical History
Past Medical History: Arrhythmias (A. Flutter), CAD (s/p CABG), HTN, Hypercholesterolemia, Hypothyroidism and IDDM (on insulin pump)
Past Surgical History: Other (Appendectomy, Hernia repair , pacemaker placement, CABG x3 vessels, Moh's Surgery x2 (nose, forehead), R total knee replacement, PEG tube placement at [facility] 2022)
Social History
Tobacco: Non-Smoker
Alcohol: None
Drug: None
Family History
Family History: Reviewed & Not Pertinent
Allergies / Home Medications
Allergy/AdvReac Type Severity Reaction Status Date / Time
efgartigimod mary-fcab (From Allergy Rash Verified 04/20/25 08:37
Vyvgart)
�Medication �Instructions �Recorded
atorvastatin 80 mg tablet 80 mg PO DAILY High cholesterol 04/28/15
metoprolol succinate 50 mg 50 mg PO DAILY Blood Pressure 12/06/23
tablet,extended release 24 hr
pyridostigmine bromide 60 mg tablet 60 mg PO TID@08,, myasthenia 12/06/23
gravis
Patient Own Insulin Pump 0 units SC .VIA PUMP Diabetes 02/10/24
amlodipine 2.5 mg tablet 2.5 mg PO DAILY Blood Pressure 04/20/25
apixaban 5 mg tablet (Eliquis) 5 mg PO BID Blood Clot 04/20/25
Prevention/Tx
furosemide 20 mg tablet 40 mg PO DAILY@17 Fluid 04/20/25
Retention/Swelling
furosemide 20 mg tablet 80 mg PO DAILY@08 Fluid 04/20/25
Retention/Swelling
levothyroxine 125 mcg tablet 125 mcg PO DAILY@06 Thyroid 04/20/25
lisinopril 40 mg tablet 40 mg PO DAILY Blood Pressure 04/20/25
Review of Systems
-
History Source: Patient
All other systems: A 12 pt ROS was Negative except as stated above in HPI
Vital Signs
Temp Pulse Resp BP Pulse Ox
97.8 F 74 22 111/62 85
04/21/25 11:32 04/21/25 12:00 04/21/25 12:00 04/21/25 12:00 04/21/25 12:00
Physical Exam
Exam
General: Well Developed, Well Nourished, No Apparent Distress and Comfortable
HEENT: Normocephalic, Anicteric, Moist Mucous Membranes and Atraumatic
Respiratory: Clear and Non Labored Respirations; Negative Wheezes, Rales or Rhonchi
Cardiac: S1/S2 and Regular Rhythm; Negative Murmur
Breast: N/A
GI: Soft, Non Tender, Non Distended, Normal Bowel Sounds and Other
Rectal: Deferred by Provider
Musculoskeletal: No Clubbing, No Cyanosis and No Edema
Skin: Warm and Dry
Neuro: AO x 3
Psych: Calm
Results
WBC 7.3 10^3/uL (4.8-10.8) 04/21/25 05:36
Hgb 12.4 g/dL (13.0-18.0) L 04/21/25 05:36
Hct 37.0 % (39.0-52.0) L 04/21/25 05:36
MCV 89.2 fL (80.0-94.0) 04/21/25 05:36
Plt Count 150 10^3/uL (130-400) 04/21/25 05:36
Absolute Neuts (auto) 6.3 10^3/uL (1.4-6.5) 04/21/25 05:36
PT 23.2 Sec (11.4-14.6) H 04/21/25 05:36
INR 2.05 04/21/25 05:36
APTT 39.3 Sec (23.4-35.0) H 04/21/25 05:36
Sodium 140 mmol/L (135-145) 04/21/25 05:36
Potassium 4.0 mmol/L (3.5-5.1) 04/21/25 05:36
Chloride 108 mmol/L (98-107) H 04/21/25 05:36
Carbon Dioxide 28 mmol/L (22-30) 04/21/25 05:36
BUN 32 mg/dl (9-20) H 04/21/25 05:36
Creatinine 1.1 mg/dL (0.7-1.3) 04/21/25 05:36
Calcium 8.9 mg/dl (8.4-10.2) 04/21/25 05:36
Total Bilirubin 1.3 mg/dl (0.2-1.3) 04/21/25 05:36
AST 20 U/L (17-59) 04/21/25 05:36
ALT 12 U/L (0-50) 04/21/25 05:36
Alkaline Phosphatase 26 U/L (38-126) L 04/21/25 05:36
Diagnostic Image Results:
Prior GI Procedures:
EGD:
Endoscopy (09/21/22):
Impression: - No obvious stricture was noted in the esophagus.
Dilated empirically for prominent cricopharyngeal bar
seen from video swallow test using 16 mm Savary
dilator.
- Normal stomach.
- Normal duodenal bulb, first portion of the duodenum
and second portion of the duodenum.
- No specimens collected.
Colonoscopy:
Assessment / Plan
-
Shree is an 80 year old man with a history of Myasthenia Gravis w/ past flares requiring hospitalization, A flutter (on Eliquis), sick sinus syndrome s/p pacemaker, IDDM on insulin pump, hypertension, hyperlipidemia, CAD s/p CABG x3,
hypothyroidism, h/o TIA/CVA who presented with an episode of dysphagia and inability to swallow food/medication that started yesterday. He was found to be in MG Flare, started on high dose steroids. Had episode of small amount of painless bloody
emesis with food, following several well tolerated meals, for which GI was consulted.
##Bloody Emesis
Etiology is most likely secondary to irritation from retching/coughing up food, exacerbated by Eliquis. The amount of blood was minimal and there was only one episode. He remains hemodynamically stable, Eliquis is now on hold, and the repeat H&H is
pending, but suspect it will be stable. The patient is without GI complaints at this time. He is NPO and scheduled for VSE tomorrow in the am.
Agree with IV PPI BID.
Eliquis currently on hold, patient is in paced rhythm w/o sx. If repeat hgb stable, would resume Eliquis.
Agree to continue trending H&H, transfuse if needed for hgb <7 or plts <20,000. Keep NPO, proceed with VSE tomorrow.
We do not feel there is any emergent need for Endoscopy or CTA imaging at this time. If further bleeding continues, if patient becomes unstable, or if symptoms worsen may consider further imaging or possible procedural intervention vs. embolization.
-
-
Thank you for consultation and allowing me to participate in the patient's care. Please call the communications marketing intern GI physician during the after hours with any questions or concerns.
[2025-04-21 14:41] LABS: Hemoglobin 13.8 g/dL (13.0-18.0)
--- NOTE | 2025-04-21 15:28 | W.PN.ONC ---
Today's Communication / Plan
-
He tolerated session #1 well. Next session is tomorrow. Will continue to monitor coags
Impression
Impression
Myasthenia gravis
dysphagia
Plan
Plan
1. Myasthenia gravis - w/ progressive neuromuscular weakness and dysphagia
-Dr. Blue, neurology has recommended plasmapheresis
-plasmapheresis will be arranged through the [facility]
-follow CBC, coagulation panel, and fibrinogen
-plasmapheresis orders will be placed on patient's chart
-consent obtained
Subjective/Objective
Subjective/Objective
He is feeling reasonably well. He is still having some problems with aspiration. Examination is unchanged.
Vital Signs:
Vital Signs
Temp Pulse Resp BP Pulse Ox
97.8 F 78 23 124/59 98
04/21/25 15:17 04/21/25 14:00 04/21/25 14:00 04/21/25 14:00 04/21/25 14:00
Lab Results:
Laboratory Data
WBC 7.3 10^3/uL (4.8-10.8) 04/21/25 05:36
Hgb 13.8 g/dL (13.0-18.0) 04/21/25 14:08
Plt Count 150 10^3/uL (130-400) 04/21/25 05:36
PT 23.2 Sec (11.4-14.6) H 04/21/25 05:36
INR 2.05 04/21/25 05:36
APTT 39.3 Sec (23.4-35.0) H 04/21/25 05:36
eGFR > 60.00 04/21/25 05:36
--- NOTE | 2025-04-21 15:45 | PTCARENOTE ---
Patient due for mestinon. Reviewed with speech therapist Pearl who stated she would be hesitant to give oral meds at this time d/t patient's significant choking episode today. Dr Hernandez made aware via TT and stated ok to hold. Dr Jha rounding
on patient and made aware; he instructed this nurse to notify Dr Blue, stating this is a very important med. TT sent to Dr Blue who replied via TT ok to hold.
--- NOTE | 2025-04-21 15:48 | PTCARENOTE ---
Addendum entered by Berna Velez RN 04/21/25 18:16:
Deborah replied that patient can continue his basal rate through the pump.
Original Note:
TT sent to Deborah Beltran to make her aware patient is currently NPO as patient still has his own insulin pump.
[2025-04-21 17:59] LABS: Glucose - Point of Care 274 mg/dl (70-99)
[2025-04-21] MEDS: MESTINON PO (18:04)
[2025-04-21 21:53] LABS: Hemoglobin 13.1 g/dL (13.0-18.0)
[2025-04-21] MEDS: PT'S OWN INSULIN PUMP - NovoLOG 1.5 UNIT SC (23:55)
[2025-04-22] VITALS (18 sets, daily range): BP systolic 117–148; BP diastolic 54–71; BMI 26.3
[2025-04-22 00:05] LABS: Glucose - Point of Care 232 mg/dl (70-99)
[2025-04-22] MEDS: D5/0.45%NACL 1000 IV ×2 (02:21→18:03)
[2025-04-22] MEDS: SYNTHROID PO (05:39)
[2025-04-22 06:09] LABS: Glucose - Point of Care 244 mg/dl (70-99)
[2025-04-22 06:09] LABS: Hematocrit 37.2 % (39.0-52.0); Hemoglobin 12.7 g/dL (13.0-18.0); Mean Corp Hgb Conc. 34.1 g/dL (33.0-37.0); Mean Corpuscular Volume 88.8 fL (80.0-94.0); Nucleated Red Blood Cells % 0 % (-); Platelet Count 147 10^3/uL (130-400); Red Cell Dist. Width 14.6 % (11.5-14.5)
[2025-04-22 06:35] LABS: Blood Urea Nitrogen 40 mg/dl (9-20); Calcium 8.7 mg/dl (8.4-10.2); Carbon Dioxide 28 mmol/L (22-30); Chloride 108 mmol/L (98-107); Estimated Creatinine Clearance 52 ml/min; Glucose 233 mg/dl (70-99); Potassium 4.1 mmol/L (3.5-5.1); Sodium 139 mmol/L (135-145); eGFR > 60.00
--- NOTE | 2025-04-22 07:29 | PTCARENOTE ---
Strict NPO overnight. No bloody sputum. Utilizes Jorge independently. Sp02 WNL on RA. AV-paced on the monitor. Encouraged to reposition self while in bed. Heels floated with pillows. IVF continue per the MAR. Pt manages insulin pump from home
independently. Call meza within reach. Plan for plasma exchange this morning.
[2025-04-22] MEDS: MESTINON PO ×3 (07:42→17:28)
[2025-04-22] MEDS: NORVASC PO (07:42)
[2025-04-22] MEDS: TOPROL XL PO (07:43)
--- NOTE | 2025-04-22 08:37 | W.PN.ONC2 ---
Today's Communication / Plan
-
plan for plasmapheresis today per neurology
Impression
Impression
Myasthenia gravis
dysphagia
Plan
Plan
1. Myasthenia gravis - w/ progressive neuromuscular weakness and dysphagia
-Dr. Blue, neurology has recommended plasmapheresis
-plasmapheresis every other day x 5 doses planned
-follow CBC, coagulation panel, and fibrinogen daily
Subjective/Objective
Subjective
no new complaints, no change in neuro sxs
afebrile, no hypoxia or hypotension
Vital Signs:
Vital Signs
Temp Pulse Resp BP Pulse Ox
97.6 F 88 16 148/69 93
04/22/25 07:29 04/22/25 06:00 04/22/25 06:00 04/22/25 06:00 04/22/25 06:00
Lab Results:
Laboratory Data
WBC 12.8 10^3/uL (4.8-10.8) H 04/22/25 05:58
Hgb 12.7 g/dL (13.0-18.0) L 04/22/25 05:58
Plt Count 147 10^3/uL (130-400) 04/22/25 05:58
PT 23.2 Sec (11.4-14.6) H 04/21/25 05:36
INR 2.05 04/21/25 05:36
APTT 39.3 Sec (23.4-35.0) H 04/21/25 05:36
eGFR > 60.00 04/22/25 05:58
Physical Exam
HEENT: No Jaundice
Pulmonary: Other (unlabored)
GI: Soft
Extremities: Pulses Present
Orders
Orders
Orders From Last 24 Hours
04/22/25 08:03
Fibrinogen Stat
INR [Prothrombin Time] Stat
PTT Stat
04/23/25 06:00
CBC/No Diff [Complete Blood Count/No Diff] IN AM
CMP [Comprehensive Metabolic Panel] IN AM
Fibrinogen IN AM
INR [Prothrombin Time] IN AM
Magnesium IN AM
PTT IN AM
04/24/25 06:00
CBC/No Diff [Complete Blood Count/No Diff] IN AM
CMP [Comprehensive Metabolic Panel] IN AM
Fibrinogen IN AM
INR [Prothrombin Time] IN AM
Magnesium IN AM
PTT IN AM
04/25/25 06:00
CBC/No Diff [Complete Blood Count/No Diff] IN AM
CMP [Comprehensive Metabolic Panel] IN AM
Fibrinogen IN AM
INR [Prothrombin Time] IN AM
Magnesium IN AM
PTT IN AM
04/26/25 06:00
CBC/No Diff [Complete Blood Count/No Diff] IN AM
CMP [Comprehensive Metabolic Panel] IN AM
Fibrinogen IN AM
INR [Prothrombin Time] IN AM
Magnesium IN AM
PTT IN AM
04/27/25 06:00
CBC/No Diff [Complete Blood Count/No Diff] IN AM
CMP [Comprehensive Metabolic Panel] IN AM
Fibrinogen IN AM
INR [Prothrombin Time] IN AM
Magnesium IN AM
PTT IN AM
--- NOTE | 2025-04-22 08:52 | PTCARENOTE ---
Patient received from shift mechanic. Patient resting comfortably in bed. AAO, VSS. No events noted overnight. No complaints of pain at this time. Currently on Room Air. Remains NPO, video swallow later this afternoon. Plasmapheresis scheduled
for this AM. Continuing neuro checks. No other testing scheduled at this time. call meza in reach.
--- NOTE | 2025-04-22 08:56 | W.PN.NEURO.1 ---
Addendum entered and electronically signed by Osmany Blue MD 04/22/25 11:37:
Studies reviewed.
I have personally examined the patient. I reviewed and agree with the SERVICE WORKER's Note.
My addenda:
Awake, alert, interactive. No acute distress.
Speech mildly dysarthric.
Follows 2-step requests w/o difficulty. No tremor.
Extra-ocular movements grossly intact.
Facial movements full and symmetric. Hearing intact to normal conversational volume.
Normal UE movements bilaterally.
Neck: full ROM.
Chest: no dyspnea
Heart: no JVD
Ext: (-) Clubbing, (-) Cyanosis, (-) Edema
IMPRESSIONS/RECOMMENDATIONS:
Abrupt onset of myasthenia gravis exacerbation in the form of dysphagia and dysarthria. Patient slightly worse today than yesterday
Continue plasma exchange was likely need for 5 exchanges
Continue methylprednisolone likely needing 5 infusions of 1 g each time
Follow vital capacity daily
Consider initiation of Zilucoplan
Consider Azathioprine
D/W patient
Will continue to follow patient.
Original Note:
Today's Communication / Plan
-
.
Neuro Assessment/Plan
Assessment
Acute exacerbation of previously diagnosed myasthenia gravis with the patient experiencing worsening dysphagia, dysarthria, as well as neck weakness despite routine use of Rozanolixizumab. No significant response noted yet after one plasma exchange
treatment.
Plan
Continue high dose methylprednisolone up to 5 infusions
Continue plasma exchange for a total of 5 treatments
Continue patient's apixaban
Follow vital capacity with goal of greater than 20 ml per kilogram, maximal inspiratory flow greater than 30 cm water pressure, maximal expiratory force greater than 40 cm water pressure
Speech therapy evaluation
Likely will need to change outpatient myasthenia gravis treatment from Rozanolixizumab to the use of Zilucoplan or Ravulizumab
Goal of normoglycemia
PT/OT/ST
Will follow
Subjective/Objective
Subjective Data
Date of Service: April 22, 2025
No acute events overnight. Patient reports that his voice quality isn't great today and when he talks a lot he has been having an excessive accumulation of phlegm. Still coughing significantly with oral intake.
Objective Data
Vital Signs
Temp Pulse Resp BP Pulse Ox
97.6 F 88 16 148/69 93
04/22/25 07:29 04/22/25 06:00 04/22/25 06:00 04/22/25 06:00 04/22/25 06:00
Lab Results
04/22/25 05:58
04/22/25 05:58
PT 23.2 Sec (11.4-14.6) H 04/21/25 05:36
INR 2.05 04/21/25 05:36
APTT 39.3 Sec (23.4-35.0) H 04/21/25 05:36
Sodium 139 mmol/L (135-145) 04/22/25 05:58
Potassium 4.1 mmol/L (3.5-5.1) 04/22/25 05:58
BUN 40 mg/dl (9-20) H 04/22/25 05:58
Glucose 233 mg/dl (70-99) H 04/22/25 05:58
Calcium 8.7 mg/dl (8.4-10.2) 04/22/25 05:58
Patient Allergies
efgartigimod mary-fcab (From [employer]) Allergy (Verified 04/20/25 08:37)
Rash
Review of Systems
-
History Source: Patient
EENT: Swallowing Difficulty
Respiratory: Cough
Neuro: Weakness
Physical Exam
-
General: No Apparent Distress
Eyes: No Ptosis and PERRLA
HEENT: Normocephalic and Atraumatic
Neck: Full Range of Motion
Respiratory: Negative No Dyspnea
GI: Non-distended
Extremities: No Clubbing, No Cyanosis and No Edema
Psych: Unremarkable
Extended Neurological Exam
Mood & Affect: Mood Unremarkable and Affect Unremarkable
Attention Span & Concentration: Awake, Alert and Interactive
Memory: Unremarkable and Able to Recall
Tremor: Hand Tremor Absent and Head Tremor Absent
Involuntary Movement: None
Speech: Rate of Production Unremarkable, Dysarthric and Hoarse
Cranial Nerve II: Left Eye: Pupillary Reactivity Unremarkable and Pupillary Size Unremarkable
Cranial Nerve II: Right Eye: Pupillary Reactivity Unremarkable and Pupillary Size Unremarkable
Cranial Nerves III, IV, : Extraocular Movement: Extraocular Movement Full in all Directions
Cranial Nerve VII: Facial Symmetry: Normal Facial Symmetry
Cranial Nerve VIII: Hearing: Unremarkable Hearing to Normal Conversational Volume
Cranial Nerves IX, X: Palate Movement: Palate Elevation Symmetric
Cranial Nerve XI: Shoulder Shrug: Other (shoulder ext b/l 5-/5)
Cranial Nerve XII: Tongue Protusion: Midline (strength reduced with lateral movement)
Muscle Strength, Overall: Other (neck ext/flex 5-/5, shoulder ext 5-/5, tongue lateral strength severely reduced)
Muscle Bulk & Tone: Bulk Unremarkable and Tone Unremarkable
Pronator Drift: No Drift in Upper Extremities and No Drift in Lower Extremities
Data Reviewed
-
Labs: Report Reviewed
Reviewed with: Physician and Patient
Medications
-
Active Medications
Generic Name Dose Route Start Last Admin
Trade Name Freq PRN Reason Stop Dose Admin
Amlodipine Besylate 2.5 mg 04/21/25 08:00 04/22/25 07:42
Amlodipine 2.5 Mg Tablet PO 05/19/25 07:59 Not Given
DAILY JACEK
Apixaban 5 mg 04/20/25 20:00 04/21/25 08:56
Apixaban (Eliquis) 5 Mg Tablet PO 05/18/25 19:59 5 mg
On Hold: 04/21/25 13:20 BID JACEK Administration
Bisacodyl 10 mg 04/20/25 17:06
Bisacodyl 10 Mg Rectal Suppository RECTAL 05/18/25 17:05
[id number] PRN
constipation
Dextrose 12.5 grams 04/20/25 11:37
Dextrose 50% (0.5 Grams/Ml) 50 Ml Syringe IV 05/18/25 11:36
[id number] PRN
hypoglycemia
Protocol
Furosemide 80 mg 04/21/25 08:00 04/21/25 09:44
Furosemide 20 Mg Tablet PO 05/19/25 07:59 80 mg
On Hold: 04/21/25 10:46 DAILY@08 JACEK Administration
Furosemide 40 mg 04/20/25 17:00 04/20/25 22:28
Furosemide 20 Mg Tablet PO 05/18/25 16:59 40 mg
On Hold: 04/21/25 10:46 DAILY@17 JACEK Administration
Glucagon 1 mg 04/20/25 11:37
Glucagon 1 Mg Vial IM 05/18/25 11:36
PRN PRN
hypoglycemia
Protocol
Hydralazine HCl 5 mg 04/20/25 13:38
Hydralazine 20 Mg/Ml Vial IV 05/18/25 13:37
Q4HPRN PRN
SBP>160
Methylprednisolone Sodium 258 mls @ 258 mls/hr 04/20/25 11:00 04/22/25 10:32
Succinate 1,000 mg/ Sodium IV 04/24/25 11:59 258 mls
Chloride Q24H JACEK Administration
Dextrose/Sodium Chloride 1,000 mls @ 75 mls/hr 04/21/25 14:00 04/22/25 02:21
D5/0.45%Nacl IV 1,000 mls
[id number] JACEK Administration
Insulin Aspart 0 units 04/22/25 12:00
Insulin Aspart Low Resistance 300 Units/3 Ml Pen.Injctr SC 05/20/25 11:59
Q6 JACEK
Protocol
Levothyroxine Sodium 125 mcg 04/21/25 06:00 04/22/25 05:39
Levothyroxine 125 Mcg Tablet PO 05/19/25 05:59 Not Given
DAILY@06 JACEK
Lisinopril 40 mg 04/21/25 08:00 04/21/25 09:44
Lisinopril 20 Mg Tablet PO 05/19/25 07:59 40 mg
On Hold: 04/21/25 10:45 DAILY JACEK Administration
Metoprolol Succinate 50 mg 04/21/25 08:00 04/22/25 07:43
Metoprolol 50 Mg Extended Release Tablet PO 05/19/25 07:59 Not Given
DAILY JACEK
Ondansetron HCl 4 mg 04/21/25 13:22
Ondansetron 4 Mg/2 Ml Vial IV 05/19/25 13:21
Q8HPRN PRN
nausea, vomiting
Pantoprazole Sodium 40 mg 04/21/25 20:00 04/22/25 08:58
Pantoprazole Sodium 40 Mg/10 Ml Vial IV 05/19/25 19:59 40 mg
BID JACEK Administration
Patient Own Medication 0 unit 04/21/25 09:30 04/22/25 09:01
Insulin Pump - Patient's Own Novolog (Aspart) SC 05/19/25 09:29 Not Given
ACHS JACEK
Patient Own Medication 0 unit 04/21/25 10:04
Insulin Pump - Patient's Own Novolog (Aspart) SC 05/19/25 10:03
PRN PRN
hyperglycemia
Polyethylene Glycol 17 grams 04/20/25 17:06
Polyethylene Glycol Powder 17 Grams Packet PO 05/18/25 17:05
DAILYPRN PRN
constipation
Pyridostigmine Cades 60 mg 04/20/25 17:00 04/22/25 07:42
Pyridostigmine 60 Mg Tablet PO 05/18/25 16:59 Not Given
TID@,, JACEK
Senna/Docusate Sodium 1 tablet 04/20/25 17:06
Docusate W/Senna (Carly-Colace) Tablet PO 05/18/25 17:05
BIDPRN PRN
constipation
Sodium Chloride 0 flush 04/20/25 13:00
Sodium Chloride 0.9% (Flush) Syringe IV 05/18/25 12:59
PER PROTOCOL JACEK
Sodium Chloride 10 ml 04/21/25 13:25 04/22/25 08:59
Sodium Chloride 0.9% (Preservative Free) 10 Ml Vial IV 05/19/25 09:59 10 ml
BID JACEK Administration
Home Medications
�Medication �Instructions �Recorded
atorvastatin 80 mg tablet 80 mg PO DAILY High cholesterol 04/28/15
metoprolol succinate 50 mg 50 mg PO DAILY Blood Pressure 12/06/23
tablet,extended release 24 hr
pyridostigmine bromide 60 mg tablet 60 mg PO TID@,, myasthenia 12/06/23
gravis
Patient Own Insulin Pump 0 units SC .VIA PUMP Diabetes 02/10/24
amlodipine 2.5 mg tablet 2.5 mg PO DAILY Blood Pressure 04/20/25
apixaban 5 mg tablet (Eliquis) 5 mg PO BID Blood Clot 04/20/25
Prevention/Tx
furosemide 20 mg tablet 40 mg PO DAILY@17 Fluid 04/20/25
Retention/Swelling
furosemide 20 mg tablet 80 mg PO DAILY@08 Fluid 04/20/25
Retention/Swelling
levothyroxine 125 mcg tablet 125 mcg PO DAILY@06 Thyroid 04/20/25
lisinopril 40 mg tablet 40 mg PO DAILY Blood Pressure 04/20/25
[2025-04-22] MEDS: PROTONIX IV 40 MG IV ×2 (08:58→21:03)
[2025-04-22] MEDS: NSS (PRESERVATIVE FREE) 10 ML IV ×2 (08:59→21:03)
[2025-04-22] MEDS: PT'S OWN INSULIN PUMP - NovoLOG SC ×4 (09:01→22:47)
--- NOTE | 2025-04-22 09:31 | PN.DE.MGMTRT ---
Insulin Management
- -
04/22/2025 Diabetes Management Consult Follow up
Patient admitted 04/20 with difficulty swallowing. PMH CAD s/p CABG, sss with pacemaker, HTN, HLD, type 1 diabetes, hypothyroid, myasthenia gravis. Patient known to me from both in patient and outpatient care. Prior to admission was using the
Medtronic pump with Guardian Sensor, novolog insulin and extended wear infusion set. A1C on admission 6.9%, cr 1.1, eGFR > 60.
Patient is awake alert and oriented able to discuss diabetes care. States he sees Levar JIANG at [facility]. The sensor for his pump was just replaced. Patient currently receiving steroids.
Patient now NPO due to difficulty swallowing. Will continue his basal insulin via his pump. Due to Smart Guard unable to set temp basal, will order additional SQ low corrective insulin Q 6 hours.
Set change is not due until Sunday, son did bring supplies.
Pump Settings:
Basal CHO correction
12am .225 12 40
4am .250 12 40
6am .55 12 40
8AM .6 12 40
12pm .55 12 40
4am .4 12 40
24 hour basal total 10.3
Patient will continue insulin pump
Discussed with nurse
Will follow
Diabetes History
- -
Type of Diabetes: 1
Pre-Admission Diabetes Regimen
04/22/25
05:58
Creatinine 1.1
Lab Results
Hemoglobin A1c 7.1 % (4.0-5.6) H 04/21/25 05:36
Insulin Pump Settings
IP Diabetes Regimen
04/21/25 04/21/25 04/21/25
12:01 17:47 23:53
Glucose
POC Glucose 228 H 274 H 232 H
04/22/25 04/22/25
05:56 05:58
Glucose 233 H
POC Glucose 244 H
Meal type: Breakfast
Amount consumed: 100%
Patient Education
[2025-04-22 09:35] LABS: APTT 28.7 Sec (23.4-35.0); INR 1.38; PT 17.5 Sec (11.4-14.6)
[2025-04-22 09:36] LABS: Fibrinogen 153 MG/DL (199-459)
[2025-04-22] MEDS: CALCIUM GLUCONATE 10% INJECTION 280 MG IV (10:30)
[2025-04-22] MEDS: SOLU-MEDROL 258 MG IV (10:32)
[2025-04-22 12:00] LABS: Glucose - Point of Care 219 mg/dl (70-99)
[2025-04-22] MEDS: NOVOLOG FLEXPEN-LOW RESISTANCE SC ×2 (12:01→22:46)
[2025-04-22] MEDS: NOVOLOG FLEXPEN-LOW RESISTANCE 2 UNITS SC (12:49)
--- NOTE | 2025-04-22 14:36 | W.PN.HOSP.TC ---
Today's Communication/Plan
-
Speech seems to be more garbled today.
Repeat DSA with aspiration.
Will ask GI for Dobbhoff placement for nutrition and medications.
Resume Eliquis after Dobbhoff placement.
Hold Lasix and lisinopril avoiding hypotension.
Assessment / Plan
Assessment / Plan
Impression:
Presentation with worsening fatigue, motor aphasia and dysphagia.
Myasthenia gravis flare
Dysphagia with aspiration risk secondary to above
Conditions prior to admission
Essential hypertension
Dyslipidemia
IDDM on insulin pump.
CAD with history of CABG.
A flutter.
Anticoagulation with Eliquis.
History of TIA/CVA
Hypothyroidism on replacement.
Plan:*
Myasthenia gravis flare.
Patient presents with worsening fatigue during the day, garbled speech and swallowing problem.
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
Recent flare requiring plasma exchange and systemic steroids treatment admitted on February 2025
Initiated on plasmapheresis for session 04/20/2025. Plan for every 48 hours 3-5
IV Solu-Medrol
Continue pyridostigmine
Aspiration precautions
Speech and swallow eval. Diet advanced to dysphagia/pur�ed with thin liquids
Aspiration syndrome secondary to myasthenia gravis
Repeat VSE 04/22 with severe oropharyngeal dysfunction and aspiration risk
GI to place Dobbhoff tube for nutrition and medications
IDDM.
Continue insulin pump.
Adjust regimen with expectation of steroid-induced hyperglycemia
CAD status post CABG
Recent echocardiogram with preserved EF.
Monitor volume status closely.
Noted acute kidney injury while on plasmapheresis recent admission.
Noted marginal BP. Hold lisinopril and furosemide. Follow BMP.
Continue metoprolol and Norvasc
A flutter
Rate control with metoprolol.
Continue anticoagulation with Eliquis.
Hypothyroidism on replacement
Anticipated Discharge: > 48 hours
Subjective/Interval History
-
Date of Service: April 22, 2025
Objective Data
-
Labs:
Laboratory Results
04/22/25 04/22/25
05:58 09:15
WBC 12.8 H
Hgb 12.7 L
Hct 37.2 L
Plt Count 147
PT 17.5 H
INR 1.38
APTT 28.7
Sodium 139
Potassium 4.1
Chloride 108 H
Carbon Dioxide 28
BUN 40 H
Creatinine 1.1
Glucose 233 H
Calcium 8.7
Vital Signs:
Vital Signs
Temp Pulse Resp BP Pulse Ox
98.3 F 88 16 148/69 98
04/22/25 11:32 04/22/25 06:00 04/22/25 06:00 04/22/25 06:00 04/22/25 08:56
I&O
04/21/25 04/22/25 04/23/25
06:59 06:59 06:59
Output Total 775 / 775 450 / 450
Balance -775 / -775 -450 / -450
Physical Exam
-
General: Well Developed and No Apparent Distress
HEENT: Normocephalic, Atraumatic and Moist Mucous Membranes
Respiratory: Clear to Auscultation
Cardiac: Regular Rhythm and S1/S2; Negative Murmur, Rub or Gallop
GI: Soft, Nontender, Nondistended and Normal Bowel Sounds; Negative Organomegaly
Rectal: Deferred by Provider
Musculoskeletal: No Clubbing, No Cyanosis and No Edema
Skin: Negative Rash
Neuro: Awake, Alert, Oriented, AO x 3, Nonfocal/Grossly Intact and Other (Slurred speech)
--- NOTE | 2025-04-22 16:04 | W.PN.UPDATE ---
Addendum entered and electronically signed by BERTIN Narayanan 04/22/25 16:52:
X ray confirms placement of DHT ok to use for feeds and meds. Will get dietary consult to confirm goal for feeds.
Original Note:
Update Note
Progress Note Update
DHT placed with assistance with resident Bishnu Cabrera MD. Confirmed to air insufflation at 60cm. Pt tolerated well without difficulty. Will check X ray to confirm placement.
--- NOTE | 2025-04-22 16:18 | PTOTSP ---
Videofluoroscopic swallow study
Patient presents with functional oral stage and at least moderate-severe pharyngeal dysphagia as a result of myasthenia gravis exacerbation. There was deep laryngeal penetration with all consistencies and at most profound pharyngeal residue
(moderately thick via tsp). Patient sensate to retention and penetration as evidenced by multiple swallows and throat clearing. Patient could not clear retention via swallowing or fully clear penetration via cough/swallows. Swallow function
worsened as trials progressed concerning for component of fatigue. Dysarthria also worsened as study progressed.
Patient is at an elevated risk for aspiration. Recommend temporary NPO and repeat video swallow study after treatment for MG exacerbation.
Recommend:
1. NPO consider temporary non-oral means of nutrition/hydration/medications
2. Aspiration risk hydration protocol - sparing ice chips after oral care with supervision
3. Oral care 3-5x daily
4. Dysphagia tx f/u to determine timing of repeat video swallow study and progression of ARHP as appropriate
--- NOTE | 2025-04-22 16:51 | W.PN.GI.CBS2 ---
Today's Communication / Plan
-
dobhoff placed gi signing off
Assessment / Plan
-
Mr. Thomas is a 80-year-old male past medical history of myasthenia gravis, a flutter on Eliquis, sick sinus syndrome status post pacemaker, diabetic on insulin pump, CAD status post CABG, TIA/CVA presenting with dysphagia. Found to have myasthenia's
gravis exacerbation. Today after lunch, he had food get stuck and was coughing significantly and had a small amount of frothy vomitus with about a lore sized amount of blood. He was able to bring some of the food back up. His repeat hemoglobin
afterwards was stable.
Most likely, the blood is due to irritation exacerbated by Eliquis. Given the small amount of blood, stable Hb, no further bleeding, no need for further evaluation at this time. Continue to trend hemoglobin. Resume Eliquis, PPI daily.
Pt with dysphagia due to MG flare. Failed video swallow. Dobhoff placed by Teetee Romero APN and resident Dr. Cabrera. Hopefully dysphagia improves with treatment of MG flare if does not and needs further intervention pls reach out to GI. GI will
sign off pls call with ?s.
Subjective
Subjective
Date of Service: April 22, 2025
No further food getting stuck, spitting up blood
However had video swallow with mod severe pharyngeal dysphagia and recommended NPO
Objective
Data Reviewed
Laboratory Data:
Laboratory Results
04/22/25 05:58
04/22/25 05:58
Laboratory Results
PT 17.5 Sec (11.4-14.6) H 04/22/25 09:15
INR 1.38 04/22/25 09:15
APTT 28.7 Sec (23.4-35.0) 04/22/25 09:15
Total Bilirubin 1.3 mg/dl (0.2-1.3) 04/21/25 05:36
AST 20 U/L (17-59) 04/21/25 05:36
ALT 12 U/L (0-50) 04/21/25 05:36
Alkaline Phosphatase 26 U/L (38-126) L 04/21/25 05:36
Vital Signs and I&O:
Vital Signs
Temp Pulse Resp BP Pulse Ox
97.6 F 88 16 148/69 98
04/22/25 15:32 04/22/25 06:00 04/22/25 06:00 04/22/25 06:00 04/22/25 08:56
I&O
04/21/25 04/22/25 04/23/25
06:59 06:59 06:59
Output Total 775 / 775 450 / 450
Balance -775 / -775 -450 / -450
Physical Exam
Physical Exam
GI: Non Distended and Non Tender
[2025-04-22 18:59] LABS: Glucose - Point of Care 268 mg/dl (70-99)
[2025-04-22 21:32] LABS: Glucose - Point of Care 246 mg/dl (70-99)
--- NOTE | 2025-04-22 23:14 | PTCARENOTE ---
TF started at 2100. Pt appears to be tolerating well. Q4 neuro checks continued no changes at this time. Pt has no complaints at this time. Assessment care and vitals as charted. Call meza within reach.
[2025-04-23] VITALS (17 sets, daily range): BP systolic 105–144; BP diastolic 55–72; BMI 25.9
[2025-04-23 00:10] LABS: Glucose - Point of Care 218 mg/dl (70-99)
[2025-04-23] MEDS: NOVOLOG FLEXPEN-LOW RESISTANCE 2 UNITS SC ×2 (00:11→18:33)
[2025-04-23] MEDS: SYNTHROID 125 MCG PO (05:03)
[2025-04-23] MEDS: NOVOLOG FLEXPEN-LOW RESISTANCE 1 UNITS SC ×2 (05:54→11:50)
[2025-04-23 06:04] LABS: Glucose - Point of Care 196 mg/dl (70-99)
[2025-04-23 06:16] LABS: Hematocrit 39.2 % (39.0-52.0); Hemoglobin 13.2 g/dL (13.0-18.0); Mean Corp Hgb Conc. 33.7 g/dL (33.0-37.0); Mean Corpuscular Volume 89.3 fL (80.0-94.0); Nucleated Red Blood Cells % 0 % (-); Platelet Count 142 10^3/uL (130-400); Red Cell Dist. Width 14.9 % (11.5-14.5)
[2025-04-23 06:28] LABS: ALT (SGPT) 11 U/L (0-50); AST (SGOT) 16 U/L (17-59); Albumin 4.3 g/dl (3.5-5.0); Alkaline Phosphatase 23 U/L (38-126); Blood Urea Nitrogen 34 mg/dl (9-20); Calcium 8.4 mg/dl (8.4-10.2); Carbon Dioxide 27 mmol/L (22-30); Chloride 107 mmol/L (98-107); Estimated Creatinine Clearance 52 ml/min; Glucose 194 mg/dl (70-99); Magnesium 2.0 mg/dl (1.6-2.3); Potassium 3.8 mmol/L (3.5-5.1); Sodium 141 mmol/L (135-145); Total Protein 5.2 g/dl (6.3-8.2); eGFR > 60.00
[2025-04-23 06:41] LABS: INR 2.14; PT 24.3 Sec (11.4-14.6)
[2025-04-23 06:42] LABS: APTT 37.7 Sec (23.4-35.0)
[2025-04-23 07:21] LABS: Fibrinogen < 60 MG/DL (199-459)
--- NOTE | 2025-04-23 08:20 | PN.DE.MGMTRT ---
Insulin Management
- -
04/23/2025 Diabetes Management Consult Follow up
Patient admitted 04/20 with difficulty swallowing. PMH CAD s/p CABG, sss with pacemaker, HTN, HLD, type 1 diabetes, hypothyroid, myasthenia gravis. Patient known to me from both in patient and outpatient care. Prior to admission was using the
Medtronic pump with Guardian Sensor, novolog insulin and extended wear infusion set. A1C on admission 6.9%, cr 1.1, eGFR > 60.
Patient is awake alert and oriented able to discuss diabetes care. States he sees Levar JIANG at [facility]. The sensor for his pump was just replaced. Patient currently receiving steroids.
Patient now NPO due to difficulty swallowing, failed swallow eval. Will continue his basal insulin via his pump. Due to Smart Guard unable to set temp basal, will order additional SQ low corrective insulin Q 6 hours. Tube feeds have been started
@ 20 per hour, to increase by 20 every 8 hours; will start novolog 4 units Q 6 hours.
Set change is not due until Sunday, son did bring supplies.
Pump Settings:
Basal CHO correction
12am .225 12 40
4am .250 12 40
6am .55 12 40
8AM .6 12 40
12pm .55 12 40
4am .4 12 40
24 hour basal total 10.3
Patient will continue insulin pump with supplemental subcutaneous insulin q 6 hours.
Discussed with nurse
Will follow
Diabetes History
- -
Type of Diabetes: 1
Pre-Admission Diabetes Regimen
04/23/25
05:52
Creatinine 1.1
Lab Results
Hemoglobin A1c 7.1 % (4.0-5.6) H 04/21/25 05:36
Insulin Pump Settings
IP Diabetes Regimen
04/22/25 04/22/25 04/22/25
11:47 18:47 21:20
Glucose
POC Glucose 219 H 268 H 246 H
04/22/25 04/23/25
23:58 05:52
Glucose 194 H
POC Glucose 218 H 196 H
Patient Education
[2025-04-23] MEDS: D5/0.45%NACL IV (08:24)
[2025-04-23] MEDS: NORVASC 2.5 MG PO (08:37)
[2025-04-23] MEDS: PROTONIX IV 40 MG IV ×2 (08:37→21:34)
[2025-04-23] MEDS: TOPROL XL 50 MG PO (08:37)
[2025-04-23] MEDS: MESTINON 60 MG PO (08:37)
[2025-04-23] MEDS: NSS (PRESERVATIVE FREE) 10 ML IV ×2 (08:38→21:33)
--- NOTE | 2025-04-23 08:52 | PTCARENOTE ---
Patient received from echo vascular tech. Patient resting comfortably in bed. AAO, VSS. No events noted overnight. No complaints of pain at this time. Currently on Room Air. Right nare dobhoff in place, Tubefeed Jevity 1.5 @ 20mL/hr with 25mL/hr H2O
flush. Goal to be set by dietary. Continuing neuro checks. No testing scheduled at this time. call meza in reach.
[2025-04-23] MEDS: PT'S OWN INSULIN PUMP - NovoLOG SC ×4 (09:29→22:07)
--- NOTE | 2025-04-23 09:32 | W.PN.NEURO.1 ---
Addendum entered and electronically signed by Osmany Blue MD 04/23/25 13:48:
Studies reviewed.
I have personally examined the patient. I reviewed and agree with the GYNECOLOGIST's Note.
My addenda:
Awake, alert, interactive. No acute distress.
Speech mildly dysarthric.
Follows 2-step requests w/o difficulty. No tremor.
Extra-ocular movements grossly intact.
Facial movements full and symmetric. Hearing mildly reduced to normal conversational volume.
Normal UE movements bilaterally.
Neck: full ROM.
Chest: no dyspnea
Heart: no JVD
Ext: (-) Clubbing, (-) Cyanosis, (-) Edema
IMPRESSIONS/RECOMMENDATIONS:
Abrupt onset of myasthenia gravis exacerbation in the form of dysphagia and dysarthria. Patient unchanged relatively
Continue plasma exchanges likely need for 5 exchanges
Continue methylprednisolone likely needing 5 infusions of 1 g each
Follow vital capacity daily
Consider initiation of Zilucoplan as outpatient
Consider Azathioprine as outpatient
D/W patient
Will continue to follow patient.
Original Note:
Documented by User: Harini Rosario NP 04/23/25 13:42
Today's Communication / Plan
-
.
Neuro Assessment/Plan
Assessment
Acute exacerbation of previously diagnosed myasthenia gravis with the patient experiencing worsening dysphagia, dysarthria, as well as neck weakness despite routine use of Rozanolixizumab. Slight response noted yet after two plasma exchange
treatments.
Plan
Continue high dose methylprednisolone up to 5 infusions
Continue plasma exchange for a total of 5 treatments
Continue patient's apixaban
Follow vital capacity with goal of greater than 20 ml per kilogram, maximal inspiratory flow greater than 30 cm water pressure, maximal expiratory force greater than 40 cm water pressure
Speech therapy evaluation
Likely will need to change outpatient myasthenia gravis treatment from Rozanolixizumab to the use of Zilucoplan or Ravulizumab
Goal of normoglycemia
PT/OT/ST
Will follow
Subjective/Objective
Subjective Data
Date of Service: April 23, 2025
Patient reports feeling mildly improved today. He notes that he has less secretions at the back of his throat and can swallow. Dobhoff tube was placed by GI last evening.
Objective Data
Vital Signs
Temp Pulse Resp BP Pulse Ox
98.1 F 83 18 126/63 96
04/23/25 07:00 04/23/25 08:37 04/23/25 06:00 04/23/25 08:37 04/23/25 06:00
Lab Results
04/23/25 05:52
04/23/25 05:52
PT 24.3 Sec (11.4-14.6) H 04/23/25 05:52
INR 2.14 04/23/25 05:52
APTT 37.7 Sec (23.4-35.0) H 04/23/25 05:52
Sodium 141 mmol/L (135-145) 04/23/25 05:52
Potassium 3.8 mmol/L (3.5-5.1) 04/23/25 05:52
BUN 34 mg/dl (9-20) H 04/23/25 05:52
Glucose 194 mg/dl (70-99) H 04/23/25 05:52
Calcium 8.4 mg/dl (8.4-10.2) 04/23/25 05:52
Patient Allergies
efgartigimod mary-fcab (From [employer]) Allergy (Verified 04/20/25 08:37)
Rash
Review of Systems
-
History Source: Patient
EENT: Swallowing Difficulty; Negative Blurry Vision or Decreased Vision
Respiratory: Cough; Negative Trouble Breathing
Cardiac: Negative Chest Pain or Palpitations
Abdomen/GI: Negative Diarrhea
Neuro: Weakness and Speech Problem; Negative Dizzy, Headache, Numbness, Ataxia or Tremors
Physical Exam
-
General: No Apparent Distress
Eyes: Negative No Ptosis (incomplete eyelid closure bilaterally)
HEENT: Normocephalic and Atraumatic
Neck: No Bruits Bilaterally
Respiratory: No Dyspnea
GI: Non-distended
Psych: Unremarkable
Extended Neurological Exam
Mood & Affect: Mood Unremarkable and Affect Unremarkable
Attention Span & Concentration: Awake, Alert and Interactive
Memory: Unremarkable and Able to Recall
Tremor: Hand Tremor Absent and Head Tremor Absent
Involuntary Movement: None
Speech: Rate of Production Unremarkable and Dysarthric (improved from yesterday)
Cranial Nerve II: Left Eye: Negative Resists Eye Opening Fully
Cranial Nerve II: Right Eye: Negative Resists Eye Opening Fully
Cranial Nerves III, IV, : Extraocular Movement: Extraocular Movement Full in all Directions
Cranial Nerve VII: Facial Symmetry: Normal Facial Symmetry
Cranial Nerve VIII: Hearing: Unremarkable Hearing to Normal Conversational Volume
Cranial Nerve XI: Shoulder Shrug: Unremarkable
Cranial Nerve XII: Tongue Protusion: Midline
Muscle Strength, Overall: Other (neck ext/flex 5-/5, shoulder ext 5/5, tongue 3/5, eyelid resistance 2/5)
Data Reviewed
-
Labs: Report Reviewed
Reviewed with: Physician and Patient
Medications
-
Active Medications
Generic Name Dose Route Start Last Admin
Trade Name Freq PRN Reason Stop Dose Admin
Amlodipine Besylate 2.5 mg 04/23/25 09:59
Amlodipine 2.5 Mg Tablet TUBE 05/19/25 07:59
DAILY JACEK
Apixaban 5 mg 04/23/25 09:11
Apixaban (Eliquis) 5 Mg Tablet TUBE 05/18/25 19:59
BID JACEK
Bisacodyl 10 mg 04/20/25 17:06
Bisacodyl 10 Mg Rectal Suppository RECTAL 05/18/25 17:05
[id number] PRN
constipation
Dextrose 12.5 grams 04/20/25 11:37
Dextrose 50% (0.5 Grams/Ml) 50 Ml Syringe IV 05/18/25 11:36
[id number] PRN
hypoglycemia
Protocol
Furosemide 80 mg 04/21/25 08:00 04/21/25 09:44
Furosemide 20 Mg Tablet PO 05/19/25 07:59 80 mg
On Hold: 04/21/25 10:46 DAILY@08 JACEK Administration
Furosemide 40 mg 04/20/25 17:00 04/20/25 22:28
Furosemide 20 Mg Tablet PO 05/18/25 16:59 40 mg
On Hold: 04/21/25 10:46 DAILY@17 JACEK Administration
Glucagon 1 mg 04/20/25 11:37
Glucagon 1 Mg Vial IM 05/18/25 11:36
PRN PRN
hypoglycemia
Protocol
Hydralazine HCl 5 mg 04/20/25 13:38
Hydralazine 20 Mg/Ml Vial IV 05/18/25 13:37
Q4HPRN PRN
SBP>160
Methylprednisolone Sodium 258 mls @ 258 mls/hr 04/20/25 11:00 04/23/25 11:45
Succinate 1,000 mg/ Sodium IV 04/24/25 11:59 258 mls
Chloride Q24H JACEK Administration
Dextrose/Sodium Chloride 1,000 mls @ 75 mls/hr 04/21/25 14:00 04/23/25 08:24
D5/0.45%Nacl IV Not Given
.[id number] JACEK
Insulin Aspart 0 units 04/22/25 12:00 04/23/25 11:50
Insulin Aspart Low Resistance 300 Units/3 Ml Pen.Injctr SC 05/20/25 11:59 1 units
Q6 JACEK Administration
Protocol
Insulin Aspart 4 units 04/23/25 12:00 04/23/25 12:11
Insulin Aspart (Novolog) 100 Units/Ml 3 Ml Flexpen SC 05/21/25 11:59 4 units
Q6 JACEK Administration
Levothyroxine Sodium 125 mcg 04/23/25 10:00
Levothyroxine 125 Mcg Tablet TUBE 05/19/25 05:59
DAILY@06 JACEK
Lisinopril 40 mg 04/21/25 08:00 04/21/25 09:44
Lisinopril 20 Mg Tablet PO 05/19/25 07:59 40 mg
On Hold: 04/21/25 10:45 DAILY JACEK Administration
Metoprolol Tartrate 25 mg 04/23/25 20:00
Metoprolol 25 Mg Regular Release Tablet TUBE 05/21/25 19:59
BID JACEK
Ondansetron HCl 4 mg 04/21/25 13:22
Ondansetron 4 Mg/2 Ml Vial IV 05/19/25 13:21
Q8HPRN PRN
nausea, vomiting
Pantoprazole Sodium 40 mg 04/21/25 20:00 04/23/25 08:37
Pantoprazole Sodium 40 Mg/10 Ml Vial IV 05/19/25 19:59 40 mg
BID JACEK Administration
Patient Own Medication 0 unit 04/21/25 09:30 04/23/25 11:38
Insulin Pump - Patient's Own Novolog (Aspart) SC 05/19/25 09:29 Not Given
ACHS JACEK
Patient Own Medication 0 unit 04/21/25 10:04
Insulin Pump - Patient's Own Novolog (Aspart) SC 05/19/25 10:03
PRN PRN
hyperglycemia
Polyethylene Glycol 17 grams 04/23/25 10:02
Polyethylene Glycol Powder 17 Grams Packet TUBE 05/18/25 17:05
DAILYPRN PRN
constipation
Pyridostigmine [place] 90 mg 04/23/25 09:12 04/23/25 11:56
Pyridostigmine 60 Mg Tablet TUBE 05/18/25 16:59 90 mg
TID@08,12,17 JACEK Administration
Senna/Docusate Sodium 1 tablet 04/23/25 10:00
Docusate W/Senna (Carly-Colace) Tablet TUBE 05/18/25 17:05
BIDPRN PRN
constipation
Sodium Chloride 0 flush 04/20/25 13:00
Sodium Chloride 0.9% (Flush) Syringe IV 05/18/25 12:59
PER PROTOCOL JACEK
Sodium Chloride 10 ml 04/21/25 13:25 04/23/25 08:38
Sodium Chloride 0.9% (Preservative Free) 10 Ml Vial IV 05/19/25 09:59 10 ml
BID JACEK Administration
Home Medications
�Medication �Instructions �Recorded
atorvastatin 80 mg tablet 80 mg PO DAILY High cholesterol 04/28/15
metoprolol succinate 50 mg 50 mg PO DAILY Blood Pressure 12/06/23
tablet,extended release 24 hr
pyridostigmine bromide 60 mg tablet 60 mg PO TID@08,12,17 myasthenia 12/06/23
gravis
Patient Own Insulin Pump 0 units SC .VIA PUMP Diabetes 02/10/24
amlodipine 2.5 mg tablet 2.5 mg PO DAILY Blood Pressure 04/20/25
apixaban 5 mg tablet (Eliquis) 5 mg PO BID Blood Clot 04/20/25
Prevention/Tx
furosemide 20 mg tablet 40 mg PO DAILY@17 Fluid 04/20/25
Retention/Swelling
furosemide 20 mg tablet 80 mg PO DAILY@08 Fluid 04/20/25
Retention/Swelling
levothyroxine 125 mcg tablet 125 mcg PO DAILY@06 Thyroid 04/20/25
lisinopril 40 mg tablet 40 mg PO DAILY Blood Pressure 04/20/25

Documented by User: Osmany Blue MD 04/23/25 13:44
Past History
Past History
ED Past Medical History: Arrthythmia (SA node dysfunction), CAD, HTN, Hypercholesterolemia, IDDM, Hypothyroidism and Other (Cricopharyngeus bar, Myasthenia Gravis)
ED Past Surgical History: Cardiac (medtronic pacemaker 2007) and Other
Social History
Tobacco: Non-smoker
Alcohol: None
Drug: None
Personal: Other
Living: alone
Employment: Retired
Family History
Family History: Other (Sister with diabetes)
[2025-04-23] MEDS: SOLU-MEDROL 258 MG IV (11:45)
[2025-04-23] MEDS: MESTINON 90 MG TUBE ×2 (11:56→16:47)
[2025-04-23 12:00] LABS: Glucose - Point of Care 194 mg/dl (70-99)
[2025-04-23] MEDS: NOVOLOG FLEXPEN 4 UNITS SC ×2 (12:11→18:33)
--- NOTE | 2025-04-23 13:32 | W.PN.HOSP.TC ---
Today's Communication/Plan
-
Plasmapheresis
IV corticosteroids
Aspiration precautions
Tube feeding
Follow WBC and temperature curve closely. Low threshold for antibiotics if febrile with rising WBC.
Chest x-ray pending
Noted with decreased fibrinogen level post plasmapheresis. Hematology to comment while on anticoagulation with Eliquis.
Assessment / Plan
Assessment / Plan
Impression:
Presentation with worsening fatigue, motor aphasia and dysphagia.
Myasthenia gravis flare
Dysphagia with aspiration risk secondary to above
Conditions prior to admission
Essential hypertension
Dyslipidemia
IDDM on insulin pump.
CAD with history of CABG.
A flutter.
Anticoagulation with Eliquis.
History of TIA/CVA
Hypothyroidism on replacement.
Plan:*
Myasthenia gravis flare.
Patient presents with worsening fatigue during the day, garbled speech and swallowing problem.
On Rozanolixizumab [employer]
Recent flare requiring plasma exchange and systemic steroids treatment admitted on February 2025
Initiated on plasmapheresis for session 04/20/2025. Plan for every 48 hours 3-5
IV Solu-Medrol
Continue pyridostigmine
Aspiration precautions
Speech and swallow eval. Diet advanced to dysphagia/pur�ed with thin liquids
Aspiration syndrome secondary to myasthenia gravis
Repeat VSE 04/22 with severe oropharyngeal dysfunction and aspiration risk
Status post Dobbhoff placement on 04/22
Continue tube feeding
Continue aspiration precautions
Elevated white count.
Afebrile with no new complaints
Follow-up closely
Low threshold for IV antibiotics if febrile.
Check chest x-ray
Aspiration precautions
IDDM.
Steroid-induced hyperglycemia
Continue insulin pump.
Initiated on subcutaneous supplemental insulin
Adjust regimen with expectation of steroid-induced hyperglycemia
CAD status post CABG
Recent echocardiogram with preserved EF.
Monitor volume status closely.
Noted acute kidney injury while on plasmapheresis recent admission.
Noted marginal BP. Hold lisinopril and furosemide. Follow BMP.
Continue metoprolol and Norvasc
A flutter
PPM
Rate control with metoprolol.
Continue anticoagulation with Eliquis.
Hypothyroidism on replacement
Anticipated Discharge: > 48 hours
Subjective/Interval History
-
Date of Service: April 23, 2025
Objective Data
-
Labs:
Laboratory Results
04/23/25
05:52
WBC 15.2 H
Hgb 13.2
Hct 39.2
Plt Count 142
PT 24.3 H
INR 2.14
APTT 37.7 H
Sodium 141
Potassium 3.8
Chloride 107
Carbon Dioxide 27
BUN 34 H
Creatinine 1.1
Glucose 194 H
Calcium 8.4
Total Bilirubin 1.4 H
AST 16 L
ALT 11
Alkaline Phosphatase 23 L
Vital Signs:
Vital Signs
Temp Pulse Resp BP Pulse Ox
97.9 F 81 21 137/66 98
04/23/25 11:18 04/23/25 12:00 04/23/25 12:00 04/23/25 12:00 04/23/25 12:00
I&O
04/22/25 04/23/25 04/24/25
06:59 06:59 06:59
Intake Total 2335 / 2335
Output Total 450 / 450 800 / 800
Balance -450 / -450 1535 / 1535
Physical Exam
-
General: Well Developed and No Apparent Distress
HEENT: Normocephalic, Atraumatic and Moist Mucous Membranes
Respiratory: Clear to Auscultation
Cardiac: Regular Rhythm and S1/S2; Negative Murmur, Rub or Gallop
GI: Soft, Nontender, Nondistended and Normal Bowel Sounds; Negative Organomegaly
Rectal: Deferred by Provider
Musculoskeletal: No Clubbing, No Cyanosis and No Edema
Skin: Negative Rash
Neuro: Awake, Alert, Oriented, AO x 3, Nonfocal/Grossly Intact and Other (Slurred speech)
--- NOTE | 2025-04-23 14:11 | W.PN.UPDATE ---
Update Note
Progress Note Update
Discussed with oncology
With low fibrinogen level will order cryoprecipitate transfusion
Hold Eliquis
Repeat coags including fibrinogen in the morning. If fibrinogen remains lower, plan is to post point plasmaphoresis.
Next plasmapheresis possibly replace albumin with FFP
--- NOTE | 2025-04-23 16:12 | CM ---
Exacerbation of myasthenia gravis with dysphagia and dysarthria, tube feed, IV/steroids, plasmapheresis. Discharge POC: Awaiting therapy evaluation.
[2025-04-23 18:36] LABS: Glucose - Point of Care 222 mg/dl (70-99)
[2025-04-23] MEDS: LOPRESSOR 25 MG TUBE (21:34)
[2025-04-23 22:39] LABS: Glucose - Point of Care 230 mg/dl (70-99)
[2025-04-24] VITALS (31 sets, daily range): BP systolic 107–146; BP diastolic 49–78; BMI 26.3
[2025-04-24] MEDS: NOVOLOG FLEXPEN-LOW RESISTANCE 2 UNITS SC (00:09)
[2025-04-24] MEDS: NOVOLOG FLEXPEN 4 UNITS SC ×2 (00:10→05:22)
[2025-04-24 00:19] LABS: Glucose - Point of Care 232 mg/dl (70-99)
--- NOTE | 2025-04-24 01:48 | PTCARENOTE ---
Pt remains on Q4 neuro checks. Pt appearing to be speaking clearly today, less garbled speech. Pt Remains on TF now at goal 60ml/hr. Pt appears to be tolerating TF well. Pt had no complaints at this time. Call bel within reach.
[2025-04-24] MEDS: SYNTHROID 125 MCG TUBE (05:20)
[2025-04-24] MEDS: NOVOLOG FLEXPEN-LOW RESISTANCE 3 UNITS SC ×3 (05:22→23:06)
[2025-04-24 05:32] LABS: Glucose - Point of Care 297 mg/dl (70-99)
[2025-04-24 06:45] LABS: INR 1.43; PT 18.0 Sec (11.4-14.6)
[2025-04-24 06:46] LABS: APTT 31.0 Sec (23.4-35.0); Hematocrit 38.4 % (39.0-52.0); Hemoglobin 12.9 g/dL (13.0-18.0); Mean Corp Hgb Conc. 33.6 g/dL (33.0-37.0); Mean Corpuscular Volume 89.3 fL (80.0-94.0); Nucleated Red Blood Cells % 0 % (-); Platelet Count 117 10^3/uL (130-400); Red Cell Dist. Width 14.9 % (11.5-14.5)
[2025-04-24 06:58] LABS: Fibrinogen 110 MG/DL (199-459)
[2025-04-24 07:21] LABS: ALT (SGPT) 15 U/L (0-50); AST (SGOT) 21 U/L (17-59); Albumin 3.9 g/dl (3.5-5.0); Alkaline Phosphatase 34 U/L (38-126); Blood Urea Nitrogen 37 mg/dl (9-20); Calcium 8.4 mg/dl (8.4-10.2); Carbon Dioxide 27 mmol/L (22-30); Chloride 108 mmol/L (98-107); Estimated Creatinine Clearance 57 ml/min; Glucose 275 mg/dl (70-99); Magnesium 2.3 mg/dl (1.6-2.3); Potassium 4.0 mmol/L (3.5-5.1); Sodium 140 mmol/L (135-145); Total Protein 5.2 g/dl (6.3-8.2); eGFR > 60.00
--- NOTE | 2025-04-24 07:43 | PN.DE.MGMTRT ---
Insulin Management
- -
04/24/2025: Diabetes Management Follow up
Patient admitted 04/20 with difficulty swallowing. PMH CAD s/p CABG, sss with pacemaker, HTN, HLD, type 1 diabetes, hypothyroid, myasthenia gravis. Patient known to me from both in patient and outpatient care. Prior to admission was using the
Medtronic pump with Guardian Sensor, NovoLog insulin and extended wear infusion set. States he sees Levar JIANG at [facility]. A1C on admission 7.1 %, cr 1.1, eGFR > 60.
Patient is awake alert and oriented able to discuss diabetes care. Remains NPO due to difficulty swallowing, failed swallow eval.
Currently receiving steroids. Tube feeds were started @ 20 per hour, and increased by 20 every 8 hours, currently at 60cc/hr contributing to hyperglycemia
Will continue his basal insulin via his pump. Due to Smart Guard unable to set temp basal, NovoLog Q6hrs and additional SQ low corrective insulin Q 6 hours was started. Glucose has remained elevated >200, fasting 275 V, 297 POC this AM.
Will increase NovoLog Q 6hrs to 8 units and cont low corrective Q 6hrs
Set change is due today, son did bring supplies.
Pump Settings:
Basal CHO correction
12am .225 12 40
4am .250 12 40
6am .55 12 40
8AM .6 12 40
12pm .55 12 40
4am .4 12 40
24 hour basal total 10.3
Patient will continue insulin pump with supplemental subcutaneous insulin q 6 hours.
Discussed with nurse. Will cont to follow
Diabetes History
- -
Type of Diabetes: 1
Pre-Admission Diabetes Regimen
04/24/25
06:25
Creatinine 1.0
Lab Results
Hemoglobin A1c 7.1 % (4.0-5.6) H 04/21/25 05:36
Insulin Pump Settings
IP Diabetes Regimen
04/23/25 04/23/25 04/23/25
11:48 18:24 22:26
Glucose
POC Glucose 194 H 222 H 230 H
04/24/25 04/24/25 04/24/25
00:08 05:21 06:25
Glucose 275 H
POC Glucose 232 H 297 H
Meal type: Dinner
Patient Education
--- NOTE | 2025-04-24 07:44 | PTCARENOTE ---
Pt has planned Plasmapheresis today. Juani middleton RN (Nasrin) called to inform RN that with fibrinogen being 110 the medical device suggest the Pt get the 3L of Albumin + 3g Calcium Gluconate by juani middleton and then IMU RN give 2 units of pulled Cyro.
Day RN made aware. Dr Hernandez made aware by TT. Day RN making oncology aware by TT.
[2025-04-24] MEDS: PROTONIX IV 40 MG IV ×2 (09:17→20:30)
[2025-04-24] MEDS: NSS (PRESERVATIVE FREE) 10 ML IV ×2 (09:18→20:29)
[2025-04-24] MEDS: LOPRESSOR 25 MG TUBE ×2 (09:18→20:30)
[2025-04-24] MEDS: NORVASC 2.5 MG TUBE (09:19)
--- NOTE | 2025-04-24 09:19 | W.PN.NEURO.1 ---
Addendum entered and electronically signed by Osmany Blue MD 04/24/25 10:55:
Studies reviewed.
I have personally examined the patient. I reviewed and agree with the OPENER TENDER's Note.
My addenda:
Awake, alert, interactive. No acute distress.
Speech minimally dysarthric.
Follows 2-step requests w/o difficulty. No tremor.
Extra-ocular movements grossly intact. Unable to resist passive eye opening
Facial movements full and symmetric. Hearing mildly reduced to normal conversational volume.
Normal UE movements bilaterally.
Neck: full ROM.
Chest: no dyspnea
Heart: no JVD
Ext: (-) Clubbing, (-) Cyanosis, (-) Edema
IMPRESSIONS/RECOMMENDATIONS:
Abrupt onset of myasthenia gravis exacerbation in the form of dysphagia and dysarthria. Patient unchanged relatively
Continue plasma exchanges likely need for 5 exchanges total
Continue methylprednisolone 1 g IV for total of 5
Follow vital capacity daily
Consider initiation of Zilucoplan as outpatient
Consider Azathioprine as outpatient
Outpatient vaccination
D/W patient
Will continue to follow patient.
Original Note:
Today's Communication / Plan
-
.
Neuro Assessment/Plan
Assessment
Acute exacerbation of previously diagnosed myasthenia gravis with the patient experiencing worsening dysphagia, dysarthria, as well as neck weakness despite routine use of Rozanolixizumab. Patient is slowly responding to plasma exchange.
Plan
Continue high dose methylprednisolone up to 5 infusions
Continue plasma exchange for a total of 5 treatments
Continue patient's apixaban
Follow vital capacity with goal of greater than 20 ml per kilogram, maximal inspiratory flow greater than 30 cm water pressure, maximal expiratory force greater than 40 cm water pressure
Speech therapy evaluation
Likely will need to change outpatient myasthenia gravis treatment from Rozanolixizumab to the use of Zilucoplan or Ravulizumab
Arranging meningitis vaccinations
Goal of normoglycemia
PT/OT/ST
Will follow
Subjective/Objective
Subjective Data
Date of Service: April 24, 2025
No acute events overnight. Patient reports that he is continuing to improve. His speech is better and he feels like his swallowing is getting stronger.
Objective Data
Vital Signs
Temp Pulse Resp BP Pulse Ox
97.7 F 70 14 122/58 94
04/24/25 07:59 04/24/25 08:00 04/24/25 08:00 04/24/25 08:00 04/24/25 08:00
Lab Results
04/24/25 06:25
04/24/25 06:25
PT 18.0 Sec (11.4-14.6) H 04/24/25 06:25
INR 1.43 04/24/25 06:25
APTT 31.0 Sec (23.4-35.0) 04/24/25 06:25
Sodium 140 mmol/L (135-145) 04/24/25 06:25
Potassium 4.0 mmol/L (3.5-5.1) 04/24/25 06:25
BUN 37 mg/dl (9-20) H 04/24/25 06:25
Glucose 275 mg/dl (70-99) H 04/24/25 06:25
Calcium 8.4 mg/dl (8.4-10.2) 04/24/25 06:25
Patient Allergies
efgartigimod [facility] Allergy (Verified 04/20/25 08:37)
Rash
Review of Systems
-
History Source: Patient
EENT: Swallowing Difficulty
Respiratory: Cough; Negative Trouble Breathing
Neuro: Weakness and Speech Problem; Negative Dizzy, Headache, Numbness, Ataxia or Tremors
Physical Exam
-
General: No Apparent Distress
Eyes: No Ptosis and PERRLA
HEENT: Normocephalic and Atraumatic
Neck: Full Range of Motion
Respiratory: No Dyspnea
GI: Non-distended
Extremities: No Clubbing, No Cyanosis and No Edema
Psych: Unremarkable
Extended Neurological Exam
Mood & Affect: Mood Unremarkable and Affect Unremarkable
Attention Span & Concentration: Awake, Alert and Interactive
Memory: Unremarkable and Able to Recall
Tremor: Hand Tremor Absent and Head Tremor Absent
Involuntary Movement: None
Speech: Quantity Unremarkable, Rate of Production Unremarkable and Dysarthric (improved)
Cranial Nerve II: Left Eye: Pupillary Reactivity Unremarkable and Pupillary Size Unremarkable
Cranial Nerve II: Right Eye: Pupillary Reactivity Unremarkable and Pupillary Size Unremarkable
Cranial Nerves III, IV, : Extraocular Movement: Extraocular Movement Full in all Directions and Other (slightly incomplete eye closure, 2/5 resistance against eye opening)
Cranial Nerve VII: Facial Symmetry: Normal Facial Symmetry
Cranial Nerve VIII: Hearing: Unremarkable Hearing to Normal Conversational Volume
Cranial Nerves IX, X: Palate Movement: Palate Elevation Symmetric
Cranial Nerve XI: Shoulder Shrug: Unremarkable
Cranial Nerve XII: Tongue Protusion: Midline
Muscle Strength, Overall: Other (neck ext/flex 5/5, tongue protrusion l/r 4/5, eye opening resistance 2/5, shoulder ext 5/5)
Data Reviewed
-
Labs: Report Reviewed
Reviewed with: Physician and Patient
Medications
-
Active Medications
Generic Name Dose Route Start Last Admin
Trade Name Freq PRN Reason Stop Dose Admin
Amlodipine Besylate 2.5 mg 04/23/25 09:59
Amlodipine 2.5 Mg Tablet TUBE 05/19/25 07:59
DAILY JACEK
Apixaban 5 mg 04/23/25 09:11
Apixaban (Eliquis) 5 Mg Tablet TUBE 05/18/25 19:59
On Hold: 04/23/25 14:10 BID JACEK
Bisacodyl 10 mg 04/20/25 17:06
Bisacodyl 10 Mg Rectal Suppository RECTAL 05/18/25 17:05
[id number] PRN
constipation
Dextrose 12.5 grams 04/20/25 11:37
Dextrose 50% (0.5 Grams/Ml) 50 Ml Syringe IV 05/18/25 11:36
[id number] PRN
hypoglycemia
Protocol
Furosemide 80 mg 04/21/25 08:00 04/21/25 09:44
Furosemide 20 Mg Tablet PO 05/19/25 07:59 80 mg
On Hold: 04/21/25 10:46 DAILY@08 JACEK Administration
Furosemide 40 mg 04/20/25 17:00 04/20/25 22:28
Furosemide 20 Mg Tablet PO 05/18/25 16:59 40 mg
On Hold: 04/21/25 10:46 DAILY@17 JACEK Administration
Glucagon 1 mg 04/20/25 11:37
Glucagon 1 Mg Vial IM 05/18/25 11:36
PRN PRN
hypoglycemia
Protocol
Hydralazine HCl 5 mg 04/20/25 13:38
Hydralazine 20 Mg/Ml Vial IV 05/18/25 13:37
Q4HPRN PRN
SBP>160
Methylprednisolone Sodium 258 mls @ 258 mls/hr 04/20/25 11:00 04/23/25 11:45
Succinate 1,000 mg/ Sodium IV 04/24/25 11:59 258 mls
Chloride Q24H JACEK Administration
Albumin Human 12.5 grams in 250 mls @ 1,500 mls/hr 04/24/25 09:00
Albumin 5% INTRACATH 04/24/25 10:59
.Q10M JACEK
Calcium Gluconate 3,000 mg/ 280 mls @ 0 mls/hr 04/24/25 09:00
Sodium Chloride IV 04/24/25 09:01
ONCE ONE
As Directed
Insulin Aspart 0 units 04/22/25 12:00 04/24/25 05:22
Insulin Aspart Low Resistance 300 Units/3 Ml Pen.Injctr SC 05/20/25 11:59 3 units
Q6 JACEK Administration
Protocol
Insulin Aspart 8 units 04/24/25 08:19
Insulin Aspart (Novolog) 100 Units/Ml 3 Ml Flexpen SC 05/21/25 11:59
Q6 JACEK
Levothyroxine Sodium 125 mcg 04/23/25 10:00 04/24/25 05:20
Levothyroxine 125 Mcg Tablet TUBE 05/19/25 05:59 125 mcg
DAILY@06 JACEK Administration
Lisinopril 40 mg 04/21/25 08:00 04/21/25 09:44
Lisinopril 20 Mg Tablet PO 05/19/25 07:59 40 mg
On Hold: 04/21/25 10:45 DAILY JACEK Administration
Metoprolol Tartrate 25 mg 04/23/25 20:00 04/23/25 21:34
Metoprolol 25 Mg Regular Release Tablet TUBE 05/21/25 19:59 25 mg
BID JACEK Administration
Ondansetron HCl 4 mg 04/21/25 13:22
Ondansetron 4 Mg/2 Ml Vial IV 05/19/25 13:21
Q8HPRN PRN
nausea, vomiting
Pantoprazole Sodium 40 mg 04/21/25 20:00 04/23/25 21:34
Pantoprazole Sodium 40 Mg/10 Ml Vial IV 05/19/25 19:59 40 mg
BID JACEK Administration
Patient Own Medication 0 unit 04/21/25 09:30 04/23/25 22:07
Insulin Pump - Patient's Own Novolog (Aspart) SC 05/19/25 09:29 Not Given
ACHS JACEK
Patient Own Medication 0 unit 04/21/25 10:04
Insulin Pump - Patient's Own Novolog (Aspart) SC 05/19/25 10:03
PRN PRN
hyperglycemia
Polyethylene Glycol 17 grams 04/23/25 10:02
Polyethylene Glycol Powder 17 Grams Packet TUBE 05/18/25 17:05
DAILYPRN PRN
constipation
Pyridostigmine [place] 90 mg 04/23/25 09:12 04/23/25 16:47
Pyridostigmine 60 Mg Tablet TUBE 05/18/25 16:59 90 mg
TID@ JACEK Administration
Senna/Docusate Sodium 1 tablet 04/23/25 10:00
Docusate W/Senna (Carly-Colace) Tablet TUBE 05/18/25 17:05
BIDPRN PRN
constipation
Sodium Chloride 0 flush 04/20/25 13:00
Sodium Chloride 0.9% (Flush) Syringe IV 05/18/25 12:59
PER PROTOCOL JACEK
Sodium Chloride 10 ml 04/21/25 13:25 04/23/25 21:33
Sodium Chloride 0.9% (Preservative Free) 10 Ml Vial IV 05/19/25 09:59 10 ml
BID JACEK Administration
Sodium Chloride 0 flush 04/24/25 09:00
Sodium Chloride 0.9% (Flush) Syringe IV 05/22/25 08:59
PER PROTOCOL JACEK
Home Medications
�Medication �Instructions �Recorded
atorvastatin 80 mg tablet 80 mg PO DAILY High cholesterol 04/28/15
metoprolol succinate 50 mg 50 mg PO DAILY Blood Pressure 12/06/23
tablet,extended release 24 hr
pyridostigmine bromide 60 mg tablet 60 mg PO TID@,, myasthenia 12/06/23
gravis
Patient Own Insulin Pump 0 units SC .VIA PUMP Diabetes 02/10/24
amlodipine 2.5 mg tablet 2.5 mg PO DAILY Blood Pressure 04/20/25
apixaban 5 mg tablet (Eliquis) 5 mg PO BID Blood Clot 04/20/25
Prevention/Tx
furosemide 20 mg tablet 40 mg PO DAILY@17 Fluid 04/20/25
Retention/Swelling
furosemide 20 mg tablet 80 mg PO DAILY@08 Fluid 04/20/25
Retention/Swelling
levothyroxine 125 mcg tablet 125 mcg PO DAILY@06 Thyroid 04/20/25
lisinopril 40 mg tablet 40 mg PO DAILY Blood Pressure 04/20/25
[2025-04-24] MEDS: MESTINON 90 MG TUBE ×3 (09:21→18:07)
[2025-04-24] MEDS: PT'S OWN INSULIN PUMP - NovoLOG SC ×4 (09:32→22:59)
[2025-04-24] MEDS: CALCIUM GLUCONATE 10% INJECTION 280 MG IV (10:49)
--- NOTE | 2025-04-24 11:06 | PTCARENOTE ---
AAOx3 speech clear, GCS 15. Dobhoff with tube feeds at goal. Denies pain, no needs at this time. Critical labs relayed to provider at change of shift. Orders obtained for plasmapheresis- [facility] ABDI Alexandra here- treatment initiated.
[2025-04-24 12:39] LABS: Glucose - Point of Care 255 mg/dl (70-99)
[2025-04-24] MEDS: NOVOLOG FLEXPEN 8 UNITS SC ×3 (13:17→23:06)
--- NOTE | 2025-04-24 14:07 | W.PN.ONC ---
Today's Communication / Plan
-
plasmapheresis today - 3/5 tx
additional treatment planned for 04/26 and 04/28
follow coags/ fibrinogen
transfuse cryoprecipitate today for hypofibrinogenemia
Impression
Impression
Myasthenia gravis
dysphagia
Plan
Plan
1. Myasthenia gravis - w/ progressive neuromuscular weakness and dysphagia
-neurology has recommended plasmapheresis x5
-plasmapheresis every other day x 5 doses planned
-w/ hypofibrinogenemia - transfusion of additional cryoprecipitate planned for today
-follow CBC, coagulation panel, and fibrinogen daily
-transfuse cryo prn
Subjective/Objective
Subjective/Objective
No new complaints, feels less weak
Vital Signs:
Vital Signs
Temp Pulse Resp BP Pulse Ox
97.6 F 70 18 128/60 99
04/24/25 13:50 04/24/25 13:50 04/24/25 13:50 04/24/25 13:50 04/24/25 13:15
Lab Results:
Laboratory Data
WBC 14.3 10^3/uL (4.8-10.8) H 04/24/25 06:25
Hgb 12.9 g/dL (13.0-18.0) L 04/24/25 06:25
Plt Count 117 10^3/uL (130-400) L 04/24/25 06:25
PT 18.0 Sec (11.4-14.6) H 04/24/25 06:25
INR 1.43 04/24/25 06:25
APTT 31.0 Sec (23.4-35.0) 04/24/25 06:25
eGFR > 60.00 04/24/25 06:25
Exam: awake in NAD
CV: RRR
Pulm: CTAb
Orders
Orders
Orders From Last 24 Hours
04/28/25 06:00
PT/INR [Prothrombin Time] IN AM
PTT IN AM
--- NOTE | 2025-04-24 15:38 | PTCARENOTE ---
Plasmapheresis completed by [facility]. 2 units Cryoprecipitate infused by this RN.
[2025-04-24] MEDS: SOLU-MEDROL 258 MG IV (15:42)
--- NOTE | 2025-04-24 15:46 | CM ---
Plasma exchanges for a total of 5. IV/steroids. Discharge POC: Await therapy evaluation and recommendations.
--- NOTE | 2025-04-24 16:41 | W.PN.HOSP.TC ---
Today's Communication/Plan
-
Plasma exchange.
IV Solu-Medrol
Follow coags.
Hold Eliquis due to low fibrinogen level
Aspiration precautions
Continue tube feeding.
Speech to repeat VSE early next week
Assessment / Plan
Assessment / Plan
Impression:
Presentation with worsening fatigue, motor aphasia and dysphagia.
Myasthenia gravis flare
Dysphagia with aspiration risk secondary to above
Coagulopathy secondary to plasma exchange and Eliquis/hypofibrinogenemia
Conditions prior to admission
Essential hypertension
Dyslipidemia
IDDM on insulin pump.
CAD with history of CABG.
A flutter.
Anticoagulation with Eliquis.
History of TIA/CVA
Hypothyroidism on replacement.
Plan:*
Myasthenia gravis flare.
Patient presents with worsening fatigue during the day, garbled speech and swallowing problem.
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
Recent flare requiring plasma exchange and systemic steroids treatment admitted on February 2025
Initiated on plasmapheresis for session 04/20/2025. Plan for every 48 hours 3-5
IV Solu-Medrol
Continue pyridostigmine
Aspiration precautions
Speech and swallow eval. Diet advanced to dysphagia/pur�ed with thin liquids
Plasma exchange and Eliquis induced coagulopathy.
Noted with hypofibrinogenemia.
Hold Eliquis until fibrinogen level stable
Monitor PTT/PTT/fibrinogen daily.
Status post albumin
Status post cryoprecipitate transfusion
Discussed with hematology
Aspiration syndrome secondary to myasthenia gravis
Repeat VSE 04/22 with severe oropharyngeal dysfunction and aspiration risk
Status post Dobbhoff placement on 04/22
Continue tube feeding
Continue aspiration precautions
Elevated white count.
Afebrile with no new complaints
Follow-up closely
Low threshold for IV antibiotics if febrile.
Check chest x-ray
Aspiration precautions
IDDM.
Steroid-induced hyperglycemia
Continue insulin pump.
Initiated on subcutaneous supplemental insulin
Adjust regimen with expectation of steroid-induced hyperglycemia
CAD status post CABG
Recent echocardiogram with preserved EF.
Monitor volume status closely.
Noted acute kidney injury while on plasmapheresis recent admission.
Noted marginal BP. Hold lisinopril and furosemide. Follow BMP.
Continue metoprolol and Norvasc
A flutter
PPM
Rate control with metoprolol.
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
Hypothyroidism on replacement
Anticipated Discharge: > 48 hours
Subjective/Interval History
-
Date of Service: April 24, 2025
Objective Data
-
Labs:
Laboratory Results
04/24/25
06:25
WBC 14.3 H
Hgb 12.9 L
Hct 38.4 L
Plt Count 117 L
PT 18.0 H
INR 1.43
APTT 31.0
Sodium 140
Potassium 4.0
Chloride 108 H
Carbon Dioxide 27
BUN 37 H
Creatinine 1.0
Glucose 275 H
Calcium 8.4
Total Bilirubin 1.3
AST 21
ALT 15
Alkaline Phosphatase 34 L
Vital Signs:
Vital Signs
Temp Pulse Resp BP Pulse Ox
98 F 76 17 113/56 97
04/24/25 16:38 04/24/25 15:32 04/24/25 15:32 04/24/25 15:32 04/24/25 15:00
I&O
04/23/25 04/24/25 04/25/25
06:59 06:59 06:59
Intake Total 2135 / 2135 1542 / 1542 155 / 155
Output Total 800 / 800 1500 / 1500
Balance 1335 / 1335 42 / 42 155 / 155
Physical Exam
-
General: Well Developed and No Apparent Distress
HEENT: Normocephalic, Atraumatic and Moist Mucous Membranes
Respiratory: Clear to Auscultation
Cardiac: Regular Rhythm and S1/S2; Negative Murmur, Rub or Gallop
GI: Soft, Nontender, Nondistended and Normal Bowel Sounds; Negative Organomegaly
Rectal: Deferred by Provider
Musculoskeletal: No Clubbing, No Cyanosis and No Edema
Skin: Negative Rash
Neuro: Awake, Alert, Oriented, AO x 3, Nonfocal/Grossly Intact and Other (Slurred speech)
[2025-04-24 17:59] LABS: Glucose - Point of Care 197 mg/dl (70-99)
[2025-04-24] MEDS: NOVOLOG FLEXPEN-LOW RESISTANCE 1 UNITS SC (18:07)
--- NOTE | 2025-04-24 18:38 | PTCARENOTE ---
Patient exchanged his insulin pump and glucometer on own.
--- NOTE | 2025-04-24 22:00 | PTCARENOTE ---
Assume care from AM RN. VSS. AAOx3. Gen weakness. A-V PACED w/ BBB in the monitor. Traces of UE and LE edema. Lung sounds are diminished at the bases, SaO2 [address] in the Rt nare. Pt continues to get Jevitiy 1.5 at 65 ml w/ 25 ml
water flush. Pt tolerating tube feed. Abd round. OOBx1. Pt appears comfortable in bed. Pt continues to have his own insulin pump.
[2025-04-24 23:10] LABS: Glucose - Point of Care 296 mg/dl (70-99)
[2025-04-25] VITALS (12 sets, daily range): BP systolic 102–136; BP diastolic 53–72; BMI 26.9
[2025-04-25] MEDS: SYNTHROID 125 MCG TUBE (05:56)
[2025-04-25] MEDS: NOVOLOG FLEXPEN 8 UNITS SC (05:57)
[2025-04-25] MEDS: NOVOLOG FLEXPEN-LOW RESISTANCE 3 UNITS SC (05:57)
[2025-04-25 06:00] LABS: Hematocrit 36.3 % (39.0-52.0); Hemoglobin 12.4 g/dL (13.0-18.0); Mean Corp Hgb Conc. 34.2 g/dL (33.0-37.0); Mean Corpuscular Volume 88.8 fL (80.0-94.0); Nucleated Red Blood Cells % 0 % (-); Platelet Count 104 10^3/uL (130-400); Red Cell Dist. Width 15.0 % (11.5-14.5)
[2025-04-25 06:04] LABS: Glucose - Point of Care 279 mg/dl (70-99)
[2025-04-25 06:16] LABS: APTT 31.2 Sec (23.4-35.0); INR 1.40; PT 17.4 Sec (11.4-14.6)
[2025-04-25 06:22] LABS: Fibrinogen 147 MG/DL (199-459)
[2025-04-25 06:38] LABS: ALT (SGPT) 14 U/L (0-50); AST (SGOT) 17 U/L (17-59); Albumin 4.1 g/dl (3.5-5.0); Alkaline Phosphatase 29 U/L (38-126); Blood Urea Nitrogen 35 mg/dl (9-20); Calcium 8.5 mg/dl (8.4-10.2); Carbon Dioxide 28 mmol/L (22-30); Chloride 108 mmol/L (98-107); Estimated Creatinine Clearance 63 ml/min; Glucose 257 mg/dl (70-99); Magnesium 2.3 mg/dl (1.6-2.3); Potassium 4.1 mmol/L (3.5-5.1); Sodium 141 mmol/L (135-145); Total Protein 5.0 g/dl (6.3-8.2); eGFR > 60.00
[2025-04-25] MEDS: PT'S OWN INSULIN PUMP - NovoLOG SC ×4 (07:21→22:57)
[2025-04-25] MEDS: PROTONIX IV 40 MG IV ×2 (08:06→19:28)
[2025-04-25] MEDS: NSS (PRESERVATIVE FREE) 10 ML IV ×2 (08:06→19:28)
[2025-04-25] MEDS: LOPRESSOR 25 MG TUBE ×2 (08:07→19:28)
[2025-04-25] MEDS: MESTINON 90 MG TUBE ×3 (08:07→17:12)
[2025-04-25] MEDS: NORVASC 2.5 MG TUBE (08:07)
--- NOTE | 2025-04-25 08:17 | PTCARENOTE ---
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 Patient resting comfortably in bed. AAO, VSS. No events noted overnight. No complaints of pain at this time. Remains on Room Air. Right nare dobhoff in place, Tubefeed Jevity 1.5 @ 60mL/hr (goal) with 25mL/hr
H2O flush. Continuing neuro checks. No testing scheduled at this time. call meza in reach.
[2025-04-25 13:29] LABS: Glucose - Point of Care 225 mg/dl (70-99)
[2025-04-25] MEDS: NOVOLOG FLEXPEN 10 UNITS SC ×2 (14:01→23:00)
[2025-04-25] MEDS: NOVOLOG FLEXPEN-LOW RESISTANCE 2 UNITS SC ×2 (14:01→22:59)
--- NOTE | 2025-04-25 15:15 | W.PN.HOSP.TC ---
Today's Communication/Plan
-
continue steroids/plasmapheresis per neuro
increase insulin dose
activity as tolerated
Assessment / Plan
Assessment / Plan
Impression:
Presentation with worsening fatigue, motor aphasia and dysphagia.
Myasthenia gravis flare
Dysphagia with aspiration risk secondary to above
Coagulopathy secondary to plasma exchange and Eliquis/hypofibrinogenemia
Conditions prior to admission
Essential hypertension
Dyslipidemia
IDDM on insulin pump.
CAD with history of CABG.
A flutter.
Anticoagulation with Eliquis.
History of TIA/CVA
Hypothyroidism on replacement.
Plan:*
Myasthenia gravis flare.
Patient presents with worsening fatigue during the day, garbled speech and swallowing problem.
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
Recent flare requiring plasma exchange and systemic steroids treatment admitted on February 2025
Initiated on plasmapheresis for session 04/20/2025. Plan for every 48 hours 3-5
IV Solu-Medrol
Continue pyridostigmine
Aspiration precautions
Speech and swallow eval. Diet advanced to dysphagia/pur�ed with thin liquids
Plasma exchange and Eliquis induced coagulopathy.
Noted with hypofibrinogenemia.
Hold Eliquis until fibrinogen level stable
Monitor PTT/PTT/fibrinogen daily. improved.
Status post albumin
Status post cryoprecipitate transfusion
Discussed with hematology
Aspiration syndrome secondary to myasthenia gravis
Repeat VSE 04/22 with severe oropharyngeal dysfunction and aspiration risk
Status post Dobbhoff placement on 04/22
Continue tube feeding
Continue aspiration precautions
Elevated white count.
Afebrile with no new complaints
Follow-up closely
Low threshold for IV antibiotics if febrile.
CXR clear
Aspiration precautions
IDDM.
Steroid-induced hyperglycemia
Continue insulin pump.
Initiated on subcutaneous supplemental insulin
Adjust regimen with expectation of steroid-induced hyperglycemia
CAD status post CABG
Recent echocardiogram with preserved EF.
Monitor volume status closely.
Noted acute kidney injury while on plasmapheresis recent admission.
Noted marginal BP. Hold lisinopril and furosemide. Follow BMP.
Continue metoprolol and Norvasc
A flutter
PPM
Rate control with metoprolol.
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
Hypothyroidism on replacement
Anticipated Discharge: 24 - 48 hours
Subjective/Interval History
-
Date of Service: April 25, 2025
no new issues
walking around with RN
no other issues
Objective Data
-
Labs:
Laboratory Results
04/25/25
05:54
WBC 8.2
Hgb 12.4 L
Hct 36.3 L
Plt Count 104 L
PT 17.4 H
INR 1.40
APTT 31.2
Sodium 141
Potassium 4.1
Chloride 108 H
Carbon Dioxide 28
BUN 35 H
Creatinine 0.9
Glucose 257 H
Calcium 8.5
Total Bilirubin 1.1
AST 17
ALT 14
Alkaline Phosphatase 29 L
Vital Signs:
Vital Signs
Temp Pulse Resp BP Pulse Ox
98.1 F 72 20 131/61 96
04/25/25 11:20 04/25/25 08:07 04/25/25 06:00 04/25/25 08:07 04/25/25 09:09
I&O
04/24/25 04/25/25 04/26/25
06:59 06:59 06:59
Intake Total 1542 / 1542 3015 / 3015
Output Total 1500 / 1500 1999 / 1999
Balance 42 / 42 1015 / 1015
Review of Systems
-
Respiratory: Reports No Symptoms
Cardiac: Reports No Symptoms
Abdomen/GI: Reports No Symptoms
Physical Exam
-
General: No Apparent Distress
HEENT: Other (Dobhiff tube in place); Negative Oxygen
Cardiac: Regular Rhythm and S1/S2; Negative Murmur, Rub or Gallop
GI: Soft and Nontender; Negative Organomegaly
Rectal: Deferred by Provider
Skin: Negative Rash
Neuro: Awake, Alert, Oriented, AO x 3, Nonfocal/Grossly Intact and Other (Slurred speech)
[2025-04-25 18:18] LABS: Glucose - Point of Care 144 mg/dl (70-99)
[2025-04-25] MEDS: NOVOLOG FLEXPEN-LOW RESISTANCE SC (18:40)
[2025-04-25] MEDS: NOVOLOG FLEXPEN SC (18:40)
[2025-04-25 23:07] LABS: Glucose - Point of Care 225 mg/dl (70-99)
[2025-04-26] VITALS (18 sets, daily range): BP systolic 102–136; BP diastolic 48–68; BMI 26.7
[2025-04-26] MEDS: SYNTHROID 125 MCG TUBE (05:15)
[2025-04-26] MEDS: NOVOLOG FLEXPEN-LOW RESISTANCE 1 UNITS SC ×4 (05:53→23:58)
[2025-04-26] MEDS: NOVOLOG FLEXPEN 10 UNITS SC ×4 (05:54→23:57)
[2025-04-26 06:04] LABS: Glucose - Point of Care 189 mg/dl (70-99)
[2025-04-26 06:06] LABS: Hematocrit 39.3 % (39.0-52.0); Hemoglobin 12.9 g/dL (13.0-18.0); Mean Corp Hgb Conc. 32.8 g/dL (33.0-37.0); Mean Corpuscular Volume 91.8 fL (80.0-94.0); Platelet Count 98 10^3/uL (130-400); Red Cell Dist. Width 15.2 % (11.5-14.5)
[2025-04-26 06:12] LABS: INR 1.19; PT 15.4 Sec (11.4-14.6)
[2025-04-26 06:13] LABS: APTT 27.3 Sec (23.4-35.0)
[2025-04-26 06:18] LABS: Fibrinogen 144 MG/DL (199-459)
[2025-04-26 06:36] LABS: ALT (SGPT) 17 U/L (0-50); AST (SGOT) 19 U/L (17-59); Albumin 3.9 g/dl (3.5-5.0); Alkaline Phosphatase 35 U/L (38-126); Blood Urea Nitrogen 33 mg/dl (9-20); Calcium 8.2 mg/dl (8.4-10.2); Carbon Dioxide 33 mmol/L (22-30); Chloride 108 mmol/L (98-107); Estimated Creatinine Clearance 63 ml/min; Glucose 181 mg/dl (70-99); Magnesium 2.4 mg/dl (1.6-2.3); Potassium 3.7 mmol/L (3.5-5.1); Sodium 142 mmol/L (135-145); Total Protein 5.0 g/dl (6.3-8.2); eGFR > 60.00
--- NOTE | 2025-04-26 08:21 | W.PN.HOSP.TC ---
Today's Communication/Plan
-
continue plasmapheresis per neuro
finished x5 dose 1g solumedrol
VSE tomorrow
maintain on TF
BG control remains difficult with large swings
Assessment / Plan
Assessment / Plan
Impression:
Presentation with worsening fatigue, motor aphasia and dysphagia.
Myasthenia gravis flare
Dysphagia with aspiration risk secondary to above
Coagulopathy secondary to plasma exchange and Eliquis/hypofibrinogenemia
Conditions prior to admission
Essential hypertension
Dyslipidemia
IDDM on insulin pump.
CAD with history of CABG.
A flutter.
Anticoagulation with Eliquis.
History of TIA/CVA
Hypothyroidism on replacement.
Plan:
Myasthenia gravis flare.
Patient presents with worsening fatigue during the day, garbled speech and swallowing problem.
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
Recent flare requiring plasma exchange and systemic steroids treatment admitted on February 2025
Initiated on plasmapheresis for session 04/20/2025. will get 4/5 plasmapheresis round today
IV Solu-Medrol , got x5 doses
Continue pyridostigmine
Aspiration precautions
Speech and swallow eval. Diet advanced to dysphagia/pur�ed with thin liquids
Plasma exchange and Eliquis induced coagulopathy.
Noted with hypofibrinogenemia.
Hold Eliquis until fibrinogen level stable
Monitor PTT/PTT/fibrinogen daily. improved.
Status post albumin
Status post cryoprecipitate transfusion
Discussed with hematology
Aspiration syndrome secondary to myasthenia gravis
Repeat VSE 04/22 with severe oropharyngeal dysfunction and aspiration risk
Status post Dobbhoff placement on 04/22
Continue tube feeding
Continue aspiration precautions
Elevated white count.
Afebrile with no new complaints
Follow-up closely
Low threshold for IV antibiotics if febrile.
CXR clear
Aspiration precautions
IDDM.
Steroid-induced hyperglycemia
Continue insulin pump.
Initiated on subcutaneous supplemental insulin
Adjust regimen with expectation of steroid-induced hyperglycemia
CAD status post CABG
Recent echocardiogram with preserved EF.
Monitor volume status closely.
Noted acute kidney injury while on plasmapheresis recent admission.
Noted marginal BP. Hold lisinopril and furosemide. Follow BMP.
Continue metoprolol and Norvasc
A flutter
PPM
Rate control with metoprolol.
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
Hypothyroidism on replacement
Anticipated Discharge: 24 - 48 hours
Subjective/Interval History
-
Date of Service: April 26, 2025
sitting comfortably in bed
denies sob. some dry cough
afebrile,
no new issues
Objective Data
-
Labs:
Laboratory Results
04/26/25
05:50
WBC 11.4 H
Hgb 12.9 L
Hct 39.3
Plt Count 98 L
PT 15.4 H
INR 1.19
APTT 27.3
Sodium 142
Potassium 3.7
Chloride 108 H
Carbon Dioxide 33 H
BUN 33 H
Creatinine 0.9
Glucose 181 H
Calcium 8.2 L
Total Bilirubin 0.9
AST 19
ALT 17
Alkaline Phosphatase 35 L
Vital Signs:
Vital Signs
Temp Pulse Resp BP Pulse Ox
97.5 F 76 17 121/60 96
04/26/25 03:00 04/26/25 06:00 04/26/25 06:00 04/26/25 06:00 04/26/25 06:00
I&O
04/25/25 04/26/25 04/27/25
06:59 06:59 06:59
Intake Total 3015 / 3015 2385 / 2385
Output Total 1999 1050 / 1050
Balance 1015 / 1015 1335 / 1335
Review of Systems
-
Respiratory: Reports Cough
Cardiac: Reports No Symptoms
Abdomen/GI: Reports No Symptoms
Physical Exam
-
General: Cachectic
HEENT: Other (Dobhiff tube in place); Negative Oxygen
Cardiac: Negative Gallop
Skin: Negative Rash
Neuro: Awake, Alert, Oriented, AO x 3, Nonfocal/Grossly Intact and Other (Slurred speech)
[2025-04-26] MEDS: LOPRESSOR TUBE (09:08)
[2025-04-26] MEDS: NORVASC TUBE (09:08)
[2025-04-26] MEDS: MESTINON 90 MG TUBE ×3 (09:09→18:02)
[2025-04-26] MEDS: PROTONIX IV 40 MG IV ×2 (09:10→19:55)
[2025-04-26] MEDS: NSS (PRESERVATIVE FREE) 10 ML IV ×2 (09:10→19:55)
[2025-04-26] MEDS: PT'S OWN INSULIN PUMP - NovoLOG SC ×2 (09:22→16:50)
[2025-04-26] MEDS: LOPRESSOR 25 MG TUBE ×2 (12:05→19:53)
[2025-04-26] MEDS: NORVASC 2.5 MG TUBE (12:05)
[2025-04-26] MEDS: PT'S OWN INSULIN PUMP - NovoLOG 0.8 UNIT SC (12:08)
[2025-04-26 12:15] LABS: Glucose - Point of Care 160 mg/dl (70-99)
--- NOTE | 2025-04-26 14:07 | PTCARENOTE ---
Assumed care of patient at 0700, nursing assessment completed and as documented. Pheresis done at bedside with Kuldeep Doshi RN, patient tolerated well. R Nare DHT in place with Jevity 1.5 infusing at goal rate, see worklist. Patient assisted to chair,
x1 assist. VSE ordered for tomorrow. VSS, call meza within reach, care ongoing.
[2025-04-26] MEDS: PT'S OWN INSULIN PUMP - NovoLOG 1 UNIT SC (18:02)
[2025-04-26 18:20] LABS: Glucose - Point of Care 197 mg/dl (70-99)
--- NOTE | 2025-04-26 18:46 | W.PN.NEURO.1 ---
Today's Communication / Plan
-
PLEX 4/5 today
video swallow tomorrow
Plex #5 planned 04/28
Neuro Assessment/Plan
Assessment
Acute exacerbation of previously diagnosed myasthenia gravis with the patient experiencing worsening dysphagia, dysarthria, as well as neck weakness despite routine use of Rozanolixizumab. Patient is slowly responding to plasma exchange.
Plan
Continue high dose methylprednisolone up to 5 infusions
Continue plasma exchange for a total of 5 treatments
Continue patient's apixaban
Follow vital capacity with goal of greater than 20 ml per kilogram, maximal inspiratory flow greater than 30 cm water pressure, maximal expiratory force greater than 40 cm water pressure
Speech therapy evaluation
Likely will need to change outpatient myasthenia gravis treatment from Rozanolixizumab to the use of Zilucoplan or Ravulizumab
Arranging meningitis vaccinations
Goal of normoglycemia
PT/OT/ST
Will follow
Subjective/Objective
Subjective Data
Date of Service: April 26, 2025
patient reports feeling well, speech is better
got PLEX #4 this AM tolerated well
Objective Data
Vital Signs
Temp Pulse Resp BP Pulse Ox
36.8 C 88 16 113/53 98
04/26/25 15:02 04/26/25 18:00 04/26/25 18:00 04/26/25 18:00 04/26/25 14:12
Lab Results
04/26/25 05:50
04/26/25 05:50
PT 15.4 Sec (11.4-14.6) H 04/26/25 05:50
INR 1.19 04/26/25 05:50
APTT 27.3 Sec (23.4-35.0) 04/26/25 05:50
Sodium 142 mmol/L (135-145) 04/26/25 05:50
Potassium 3.7 mmol/L (3.5-5.1) 04/26/25 05:50
BUN 33 mg/dl (9-20) H 04/26/25 05:50
Glucose 181 mg/dl (70-99) H 04/26/25 05:50
Calcium 8.2 mg/dl (8.4-10.2) L 04/26/25 05:50
Patient Allergies
efgartigimod mary-fcab (From [facility]) Allergy (Verified 04/20/25 08:37)
Rash
[2025-04-26 23:42] LABS: Glucose - Point of Care 152 mg/dl (70-99)
[2025-04-27] VITALS (10 sets, daily range): BP systolic 103–122; BP diastolic 50–67; BMI 27.3
--- NOTE | 2025-04-27 04:34 | PTCARENOTE ---
received patient from previous RN. [email or web address]. Jagruti askew with jevity 1.5 running at 60 ml/hr. 25 ml flush. NPO with ice chips. assessment charted. VSS. call meza is in reach.
[2025-04-27] MEDS: NOVOLOG FLEXPEN 10 UNITS SC ×2 (05:19→14:18)
[2025-04-27] MEDS: NOVOLOG FLEXPEN-LOW RESISTANCE SC (05:19)
[2025-04-27] MEDS: PT'S OWN INSULIN PUMP - NovoLOG 1 UNIT SC ×2 (05:22)
[2025-04-27 05:28] LABS: Glucose - Point of Care 131 mg/dl (70-99)
[2025-04-27] MEDS: SYNTHROID 125 MCG TUBE (06:07)
--- NOTE | 2025-04-27 08:34 | PN.DE.MGMTRT ---
Insulin Management
- -
04/27/2025: Diabetes Management Follow up
Patient admitted 04/20 with difficulty swallowing. PMH CAD s/p CABG, sss with pacemaker, HTN, HLD, type 1 diabetes, hypothyroid, myasthenia gravis. Patient known to me from both in patient and outpatient care. Prior to admission was using the
Medtronic pump with Guardian Sensor, NovoLog insulin and extended wear infusion set. States he sees Levar JIANG at [facility]. A1C on admission 7.1 %, cr 1.1, eGFR > 60.
Patient is awake alert and oriented able to discuss diabetes care. Remains NPO due to difficulty swallowing, scheduled for another swallow eval today.
Remains on steroids- Pred 60mg daily and Tube feeds @ 60cc per hour, contributing to hyperglycemia
Will continue his basal insulin via his pump. Due to [employer] unable to set temp basal, NovoLog Q6hrs and additional SQ low corrective insulin Q 6 hours was started. Insulin dose was increased over the weekend to 10 units Q6 hrs.
Glucose improved to 160 to 197. Fasting 131 POC this AM.
Will make mo changes to current regimen: NovoLog 10 units Q 6hrs and low corrective Q 6hrs
Set was changed on Sunday and is due to be changed on .
Pump Settings:
Basal CHO correction
12am .225 12 40
4am .250 12 40
6am .55 12 40
8AM .6 12 40
12pm .55 12 40
4am .4 12 40
24 hour basal total 10.3
Patient will continue insulin pump with supplemental subcutaneous insulin q 6 hours.
Discussed with nurse. Will cont to follow
Diabetes History
- -
Type of Diabetes: 1
Pre-Admission Diabetes Regimen
Lab Results
Hemoglobin A1c 7.1 % (4.0-5.6) H 04/21/25 05:36
Insulin Pump Settings
IP Diabetes Regimen
04/26/25 04/26/2525
12:04 18:09 23:30
POC Glucose 160 H 197 H 152 H
04/27/25
05:17
POC Glucose 131 H
Patient Education
[2025-04-27] MEDS: DELTASONE 60 MG PO (09:00)
[2025-04-27] MEDS: NORVASC 2.5 MG TUBE (09:01)
[2025-04-27] MEDS: LOPRESSOR 25 MG TUBE (09:01)
[2025-04-27] MEDS: PROTONIX IV 40 MG IV ×2 (09:01→20:26)
[2025-04-27] MEDS: NSS (PRESERVATIVE FREE) 10 ML IV ×2 (09:02→20:26)
[2025-04-27 09:55] LABS: Hematocrit 36.6 % (39.0-52.0); Hemoglobin 12.4 g/dL (13.0-18.0); INR 1.26; Mean Corp Hgb Conc. 33.9 g/dL (33.0-37.0); Mean Corpuscular Volume 89.3 fL (80.0-94.0); PT 16.1 Sec (11.4-14.6); Platelet Count 88 10^3/uL (130-400); Red Cell Dist. Width 15.3 % (11.5-14.5)
[2025-04-27 09:56] LABS: APTT 34.5 Sec (23.4-35.0)
[2025-04-27 09:58] LABS: ALT (SGPT) 12 U/L (0-50); AST (SGOT) 16 U/L (17-59); Albumin 3.4 g/dl (3.5-5.0); Alkaline Phosphatase 31 U/L (38-126); Blood Urea Nitrogen 35 mg/dl (9-20); Calcium 8.3 mg/dl (8.4-10.2); Carbon Dioxide 32 mmol/L (22-30); Chloride 105 mmol/L (98-107); Estimated Creatinine Clearance 71 ml/min; Glucose 133 mg/dl (70-99); Magnesium 2.4 mg/dl (1.6-2.3); Potassium 3.9 mmol/L (3.5-5.1); Sodium 140 mmol/L (135-145); Total Protein 4.5 g/dl (6.3-8.2); eGFR > 60.00
[2025-04-27 10:01] LABS: Fibrinogen 146 MG/DL (199-459)
--- NOTE | 2025-04-27 10:03 | W.PN.NEURO.1 ---
Today's Communication / Plan
-
Initiate prednisone 60 mg daily after completing methylprednisolone IV
Continue plasma exchange for a total of 5 treatments
Neuro Assessment/Plan
Assessment
Acute exacerbation of previously diagnosed myasthenia gravis with the patient experiencing worsening dysphagia, dysarthria, as well as neck weakness despite routine use of Rozanolixizumab. Patient is slowly responding to plasma exchange.
Completed methylprednisolone 1 g IV x 5
Plan
Initiate prednisone 60 mg daily after completing methylprednisolone IV
Continue plasma exchange for a total of 5 treatments
Continue patient's apixaban
Speech therapy evaluation
Likely will need to change outpatient myasthenia gravis treatment from Rozanolixizumab to the use of Zilucoplan with azithromycin antibiotic
Arranging meningitis vaccinations as outpatient
Goal of normoglycemia
PT/OT/ST
Will follow
Subjective/Objective
Subjective Data
Date of Service: April 27, 2025
No new changes
Objective Data
Vital Signs
Temp Pulse Resp BP Pulse Ox
36.5 C 83 17 104/54 97
04/27/25 07:34 04/27/25 06:00 04/27/25 06:00 04/27/25 04:03 04/27/25 06:00
Lab Results
04/27/25 09:23
04/27/25 09:23
PT 16.1 Sec (11.4-14.6) H 04/27/25 09:23
INR 1.26 04/27/25 09:23
APTT 34.5 Sec (23.4-35.0) 04/27/25 09:23
Sodium 140 mmol/L (135-145) 04/27/25 09:23
Potassium 3.9 mmol/L (3.5-5.1) 04/27/25 09:23
BUN 35 mg/dl (9-20) H 04/27/25 09:23
Glucose 133 mg/dl (70-99) H 04/27/25 09:23
Calcium 8.3 mg/dl (8.4-10.2) L 04/27/25 09:23
Patient Allergies
efgartigimod mary-fcab (From [facility]) Allergy (Verified 04/20/25 08:37)
Rash
Review of Systems
-
History Source: Patient
All other systems: Reviewed and negative
Physical Exam
-
General: No Apparent Distress and Appears Stated Age
Eyes: Round OU, Iantha Conjunctivae and No Ptosis
HEENT: Anicteric and Moist Mucous Membranes
Neck: Full Range of Motion
Respiratory: No Dyspnea
Cardiac: No JVD
GI: Non-distended
Skin: Unremarkable
Extremities: No Clubbing, No Cyanosis and No Edema
Psych: Intact Judgement/Insight
Extended Neurological Exam
Mood & Affect: Mood Unremarkable and Affect Unremarkable
Attention Span & Concentration: Awake, Alert and Interactive
Memory: Unremarkable
Tremor: Hand Tremor Absent and Head Tremor Absent
Speech: Quality Unremarkable and Quantity Unremarkable
Cranial Nerve II: Left Eye: Pupillary Size Unremarkable and Visual Nelson Grossly Intact
Cranial Nerve II: Right Eye: Pupillary Size Unremarkable and Visual Nelson Grossly Intact
Cranial Nerves III, IV, : Extraocular Movement: Grossly Intact
Cranial Nerve VII: Facial Symmetry: Other (tongue protrusion in cheek is full bilaterally)
Cranial Nerve VIII: Hearing: Unremarkable Hearing to Normal Conversational Volume
Cranial Nerve XI: Shoulder Shrug: Unremarkable
Muscle Strength, Overall: Full in Upper Extremities and Other (Full neck extensor and flexors)
Muscle Bulk & Tone: Bulk Unremarkable and Tone Unremarkable
Touch Sensation: Unremarkable
Coordination: Reaches for Objects without Difficulty
Data Reviewed
-
Labs: Report Reviewed
Reviewed with: Physician, Nurse Practioner and Patient
Old Records: Summarized
--- NOTE | 2025-04-27 10:03 | PTCARENOTE ---
Patient off unit for video swallow.
--- NOTE | 2025-04-27 10:08 | W.PN.HOSP.TC ---
Today's Communication/Plan
-
Transition to oral corticosteroids.
Next plasma exchange treatment on 04/28.
Monitor coagulation profile and fibrinogen.
Hold Eliquis for now.
Tube feeds.
Repeat swallowing studies including VSE.
Aspiration precautions.
With marginal BP hold DWIGHT and loop diuretic following renal function closely.
Adjust insulin regimen to hyperglycemia
Assessment / Plan
Assessment / Plan
Impression:
Presentation with worsening fatigue, motor aphasia and dysphagia.
Myasthenia gravis flare
Dysphagia with aspiration risk secondary to above
Coagulopathy secondary to plasma exchange and Eliquis/hypofibrinogenemia
Conditions prior to admission
Essential hypertension
Dyslipidemia
IDDM on insulin pump.
CAD with history of CABG.
A flutter.
Anticoagulation with Eliquis.
History of TIA/CVA
Hypothyroidism on replacement.
Plan:
Myasthenia gravis flare.
Patient presents with worsening fatigue during the day, garbled speech and swallowing problem.
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
Recent flare requiring plasma exchange and systemic steroids treatment admitted on February 2025
Initiated on plasmapheresis for session 04/20/2025. will get 4/5 plasmapheresis round today
IV Solu-Medrol , got x5 doses, transition to prednisone at 60 mg daily
Continue pyridostigmine
Aspiration precautions
Speech and swallow eval. Diet advanced to dysphagia/pur�ed with thin liquids
Plasma exchange and Eliquis induced coagulopathy.
Noted with hypofibrinogenemia.
Hold Eliquis until fibrinogen level stable
Monitor PTT/PTT/fibrinogen daily. improved.
Status post albumin
Status post cryoprecipitate transfusion
Discussed with hematology
Aspiration syndrome secondary to myasthenia gravis
Repeat VSE 04/22 with severe oropharyngeal dysfunction and aspiration risk
Status post Dobbhoff placement on 04/22
Continue tube feeding
Continue aspiration precautions
Elevated white count.
Afebrile with no new complaints
Follow-up closely
Low threshold for IV antibiotics if febrile.
CXR clear
Aspiration precautions
IDDM.
Steroid-induced hyperglycemia
Continue insulin pump.
Initiated on subcutaneous supplemental insulin
Adjust regimen with expectation of steroid-induced hyperglycemia
CAD status post CABG
Recent echocardiogram with preserved EF.
Monitor volume status closely.
Noted acute kidney injury while on plasmapheresis recent admission.
Noted marginal BP. Hold lisinopril and furosemide. Follow BMP.
Continue metoprolol and Norvasc
A flutter
PPM
Rate control with metoprolol.
On Eliquis [employer]EN YOGURT MAKER
Hypothyroidism on replacement
Anticipated Discharge: > 48 hours
Subjective/Interval History
-
Date of Service: April 27, 2025
Objective Data
-
Labs:
Laboratory Results
04/27/25
09:23
WBC 10.3
Hgb 12.4 L
Hct 36.6 L
Plt Count 88 L
PT 16.1 H
INR 1.26
APTT 34.5
Sodium 140
Potassium 3.9
Chloride 105
Carbon Dioxide 32 H
BUN 35 H
Creatinine 0.8
Glucose 133 H
Calcium 8.3 L
Total Bilirubin 1.0
AST 16 L
ALT 12
Alkaline Phosphatase 31 L
Vital Signs:
Vital Signs
Temp Pulse Resp BP Pulse Ox
97.7 F 89 21 103/50 97
04/27/25 07:34 04/27/25 10:00 04/27/25 10:00 04/27/25 08:00 04/27/25 10:05
I&O
04/26/25 04/27/25 04/28/25
06:59 06:59 06:59
Intake Total 2385 / 2385
Output Total 1050 / 1050 675 / 675
Balance 1335 / 1335 -675 / -675
Physical Exam
-
General: Cachectic
HEENT: Other (Dobhiff tube in place); Negative Oxygen
Cardiac: Negative Gallop
Skin: Negative Rash
Neuro: Awake, Alert, Oriented, AO x 3, Nonfocal/Grossly Intact and Other
--- NOTE | 2025-04-27 11:06 | PTOTSP ---
Videofluoroscopic swallow study
Patient presents with WFL oral, mild-moderate pharyngeal dysphagia secondary to myasthenia exacerbation. Improvement noted (compared to video swallow study 04/22/2025) after PLEX 11/22.
Recommend:
1. IDDSI 5 Minced/Moist, Thin Liquids
2. Medications: crushed in applesauce if medically cleared to do so
3. Strategies: upright to 90 degrees, small sips/bites, slow rate, moisten foods well with sauces, intermittent cough/swallow, small frequent meals to avoid fatigue
4. Oral care 3x daily to reduce risk for aspiration complications
5. Dysphagia tx at the acute care level for education re: compensations, to assess tolerance of diet given risk for fatigue/fluctuation, and determine if/when diet advancement appropriate
[2025-04-27] MEDS: MESTINON 90 MG TUBE ×3 (11:14→18:41)
--- NOTE | 2025-04-27 11:45 | PTCARENOTE ---
Patient back from video swallow. Advanced to minced and moist diet. Order to take dobhoff out but patient would like to wait until he tolerates a diet. Patient got washed up in bathroom. Currently sitting OOB in chair. Will continue to monitor.
[2025-04-27 12:41] LABS: Glucose - Point of Care 153 mg/dl (70-99)
--- NOTE | 2025-04-27 14:07 | PN.CDI ---
CDI
- -
CDI:
Physician Documentation Request
Admit Date: 04/20/25 11:42
Dear Doctor David,
Patient admitted with Myasthenia Gravis flare.
04/25 Nursing skin assessment, 'Stage 2 coccyx pressure injury, POA.'
Physician documentation of the type and location of wounds is required for compliant documentation. Based on the above clinical findings and your assessment, please provide the following in your progress note:
Type (etiology) of ulcer/wound:
- Pressure (decubitus) ulcer
- Other
- Unable to determine
For a pressure ulcer, please also include the stage* of the ulcer:
- Stage 1 - Skin intact, non-blanchable redness
- Stage 2 - Partial thickness loss of dermis, includes intact or open blister
- Stage 3 - Full thickness tissue not including bone, tendon or muscle
- Stage 4 - Full thickness tissue loss, including exposed bone, tendon or muscle
- Unstageable - Full thickness loss in which the base of the ulcer is covered by slough (yellow, saunders, hook, green or brown) and/or eschar (saunders, brown or black) in the wound bed.
- Unable to determine
Use of terms such as suspected, likely, concern for, or probable (associated with a specific diagnosis that is being evaluated, monitored, or treated as if it exists) are acceptable and can be coded in the inpatient setting, when documented at the
time of discharge.
Thank you,
Ping MONK,RN,CCDS
CDI Specialist
Available via [place] text
Please use your independent medical judgment in providing your response.
*Source: National Pressure Ulcer Advisory Panel (NPUAP)
[2025-04-27] MEDS: PT'S OWN INSULIN PUMP - NovoLOG 0.4 UNIT SC (14:09)
[2025-04-27] MEDS: NOVOLOG FLEXPEN-LOW RESISTANCE 1 UNITS SC (14:19)
--- NOTE | 2025-04-27 16:00 | CM ---
CM continues to follow for discharge planning. Pt for plasmaphoresis tomorrow.
PT/OT have not seen patient at this time. CM will need therapy evaluations to coordinate patient needs at time of discharge.
Plan: Await PT/OT evals
--- NOTE | 2025-04-27 17:23 | PTCARENOTE ---
NGT tube removed as per MD order. Patient tolerated diet. Insulin adjusted as per educator. Patient ambulated hallway with staff and rolling walker. A/V paced on monitor. VS stable.
[2025-04-27 17:48] LABS: Glucose - Point of Care 146 mg/dl (70-99)
[2025-04-27] MEDS: NOVOLOG FLEXPEN 8 UNITS SC (18:43)
[2025-04-27] MEDS: PT'S OWN INSULIN PUMP - NovoLOG 0.3 UNIT SC (18:51)
[2025-04-27] MEDS: LOPRESSOR 25 MG PO (20:25)
[2025-04-27 22:37] LABS: Glucose - Point of Care 164 mg/dl (70-99)
--- NOTE | 2025-04-27 22:42 | PTCARENOTE ---
Pt appearing cheerful. Pt telling RN he is looking forward to the possibility of going home Sunday after PF treatment or Sunday. Pt had no complaints at this time. Call meza within reach. Bed in lowest position. Assessment care and vitals as
charted.
[2025-04-28] VITALS (16 sets, daily range): BP systolic 113–135; BP diastolic 51–74; BMI 27.2
[2025-04-28] MEDS: SYNTHROID 125 MCG PO (06:07)
--- NOTE | 2025-04-28 07:35 | PTCARENOTE ---
Assumed care of patient at beginning of this shift from previous RN. Patient needs labwork drawn; was stuck several times this morning by previous shift without success. TT sent to phlebotomy. Patient for plasma phoresis; no time as of yet.
[2025-04-28 07:46] LABS: Glucose - Point of Care 140 mg/dl (70-99)
--- NOTE | 2025-04-28 07:54 | PN.DE.MGMTRT ---
Insulin Management
- -
04/28/2025: Diabetes Management Follow up
Patient admitted 04/20 with difficulty swallowing. PMH CAD s/p CABG, sss with pacemaker, HTN, HLD, type 1 diabetes, hypothyroid, myasthenia gravis. Patient known to me from both in patient and outpatient care. Prior to admission was using the
Medtronic pump with Guardian Sensor, NovoLog insulin and extended wear infusion set. States he sees Levar JIANG at [facility]. A1C on admission 7.1 %, cr 1.1, eGFR > 60.
Patient is awake alert and oriented able to discuss diabetes care.
Remains on steroids- Pred 60mg daily. Has restarted diet doing well.
Will resume full function of patients insulin pump, patient to bolus for meals.
Glucose improved to 133 to 164. Fasting 140 POC this AM.
Set was changed on Sunday and is due to be changed on .
Pump Settings:
Basal CHO correction
12am .225 12 40
4am .250 12 40
6am .55 12 40
8AM .6 12 40
12pm .55 12 40
4am .4 12 40
24 hour basal total 10.3
Patient will continue insulin pump.
Discussed with nurse. Will cont to follow
Diabetes History
- -
Type of Diabetes: 1
Pre-Admission Diabetes Regimen
04/27/25
09:23
Creatinine 0.8
Lab Results
Hemoglobin A1c 7.1 % (4.0-5.6) H 04/21/25 05:36
Insulin Pump Settings
IP Diabetes Regimen
04/27/25 04/27/25 04/27/25
09:23 12:25 17:31
Glucose 133 H
POC Glucose 153 H 146 H
04/27/25 04/28/25
22:26 07:34
Glucose
POC Glucose 164 H 140 H
Meal type: Dinner
Meal type: Lunch
Meal type: Lunch
Amount consumed: 90%
Amount consumed: 100%
Amount consumed: 100%
Patient Education
[2025-04-28] MEDS: NOVOLOG FLEXPEN 8 UNITS SC (08:39)
[2025-04-28] MEDS: DELTASONE 60 MG PO (08:40)
[2025-04-28] MEDS: NORVASC PO (08:40)
[2025-04-28] MEDS: PROTONIX IV 40 MG IV ×2 (08:41→20:14)
[2025-04-28] MEDS: NSS (PRESERVATIVE FREE) 10 ML IV ×2 (08:41→20:14)
[2025-04-28] MEDS: LOPRESSOR 25 MG PO ×2 (08:41→20:13)
[2025-04-28] MEDS: PT'S OWN INSULIN PUMP - NovoLOG SC (08:43)
[2025-04-28] MEDS: MESTINON 90 MG TUBE ×3 (08:45→17:16)
[2025-04-28 09:14] LABS: INR 1.20; PT 15.5 Sec (11.4-14.6)
[2025-04-28 09:15] LABS: APTT 30.8 Sec (23.4-35.0); Fibrinogen 188 MG/DL (199-459)
--- NOTE | 2025-04-28 09:52 | W.PN.ONC2 ---
Today's Communication / Plan
-
anticipate thrombocytopenia, coagulopathy, and hypofibrinogenemia will improve/resolved after pheresis complete over the next several days
no further inpatient hematology recommendation, hematology will sign off after completion of plasmapheresis -please reach out for any questions or concerns
Impression
Impression
Myasthenia gravis
dysphagia
hypofibrinogenemia, coagulopathy, thrombocytopenia secondary to plasmapheresis
Plan
Plan
1. Myasthenia gravis - w/ progressive neuromuscular weakness and dysphagia
-neurology has recommended plasmapheresis x5
-plasmapheresis every other day x 5 doses planned
-w/ hypofibrinogenemia, coagulopathy and thrombocytopenia secondary to plasmapheresis -transfuse cryo, platelets prn
-follow CBC, coagulation panel, and fibrinogen daily
Subjective/Objective
Subjective
denies bleeding
Vital Signs:
Vital Signs
Temp Pulse Resp BP Pulse Ox
97.8 F 73 16 117/62 97
04/28/25 07:47 04/28/25 08:41 04/27/25 14:00 04/28/25 08:40 04/28/25 02:59
Lab Results:
Laboratory Data
WBC 10.3 10^3/uL (4.8-10.8) 04/27/25 09:23
Hgb 12.4 g/dL (13.0-18.0) L 04/27/25 09:23
Plt Count 88 10^3/uL (130-400) L 04/27/25 09:23
PT 15.5 Sec (11.4-14.6) H 04/28/25 08:33
INR 1.20 04/28/25 08:33
APTT 30.8 Sec (23.4-35.0) 04/28/25 08:33
eGFR > 60.00 04/27/25 09:23
Physical Exam
HEENT: No Jaundice
Pulmonary: Other (unlabored)
GI: Soft
Extremities: Pulses Present
Orders
Orders
Orders From Last 24 Hours
04/27/25 09:23
CBC/No Diff [Complete Blood Count/No Diff] IN AM
CMP [Comprehensive Metabolic Panel] IN AM
Fibrinogen IN AM
INR [Prothrombin Time] IN AM
Magnesium IN AM
PTT IN AM
04/28/25 10:00
Calcium Gluconate [Calcium Gluconate 10% Injection] 3,000 mg 0.9% Sodium Chloride 250 ml [Nss] 250 ml IV ONCE
--- NOTE | 2025-04-28 09:54 | W.PN.NEURO.1 ---
Today's Communication / Plan
-
Initiated prednisone 60 mg daily after completing methylprednisolone IV
Complete plasma exchange for a total of 5 treatments
Neuro Assessment/Plan
Assessment
Acute exacerbation of previously diagnosed myasthenia gravis with the patient experiencing worsening dysphagia, dysarthria, as well as neck weakness despite routine use of Rozanolixizumab. Patient is slowly responding to plasma exchange.
Completed methylprednisolone 1 g IV x 5
Plan
Initiated prednisone 60 mg daily after completing methylprednisolone IV
Complete plasma exchange for a total of 5 treatments
Continue patient's apixaban
Speech therapy evaluation
Likely will need to change outpatient myasthenia gravis treatment from Rozanolixizumab to the use of Zilucoplan with azithromycin antibiotic
Arranging meningitis vaccinations as outpatient
Goal of normoglycemia
PT/OT/ST
Will follow as outpatient
Subjective/Objective
Subjective Data
Date of Service: April 28, 2025
Continued improvement
Objective Data
Vital Signs
Temp Pulse Resp BP Pulse Ox
36.6 C 73 16 117/62 97
04/28/25 07:47 04/28/25 08:41 04/27/25 14:00 04/28/25 08:40 04/28/25 02:59
Lab Results
04/27/25 09:23
04/27/25 09:23
PT 15.5 Sec (11.4-14.6) H 04/28/25 08:33
INR 1.20 04/28/25 08:33
APTT 30.8 Sec (23.4-35.0) 04/28/25 08:33
Sodium 140 mmol/L (135-145) 04/27/25 09:23
Potassium 3.9 mmol/L (3.5-5.1) 04/27/25 09:23
BUN 35 mg/dl (9-20) H 04/27/25 09:23
Glucose 133 mg/dl (70-99) H 04/27/25 09:23
Calcium 8.3 mg/dl (8.4-10.2) L 04/27/25 09:23
Patient Allergies
efgartigimod mary-fcab (From [employer]) Allergy (Verified 04/20/25 08:37)
Rash
Review of Systems
-
History Source: Patient
All other systems: Reviewed and negative
EENT: Negative Swallowing Difficulty
Respiratory: Negative Trouble Breathing
Cardiac: Negative Chest Pain
Physical Exam
-
General: No Apparent Distress and Appears Stated Age
Eyes: Round OU, [place] Conjunctivae and No Ptosis
HEENT: Anicteric and Moist Mucous Membranes
Neck: Full Range of Motion
Respiratory: No Dyspnea
Cardiac: No JVD
GI: Non-distended
Skin: Unremarkable
Extremities: No Clubbing, No Cyanosis and No Edema
Psych: Intact Judgement/Insight
Extended Neurological Exam
Mood & Affect: Mood Unremarkable and Affect Unremarkable
Attention Span & Concentration: Awake, Alert and Interactive
Memory: Unremarkable
Tremor: Hand Tremor Absent and Head Tremor Absent
Speech: Quantity Unremarkable; Negative Quality Unremarkable (Initially minimally thick)
Cranial Nerve II: Left Eye: Pupillary Size Unremarkable and Visual Nelson Grossly Intact
Cranial Nerve II: Right Eye: Pupillary Size Unremarkable and Visual Nelson Grossly Intact
Cranial Nerves III, IV, : Extraocular Movement: Grossly Intact
Cranial Nerve VII: Facial Symmetry: Other (tongue protrusion in cheek is full bilaterally)
Cranial Nerve VIII: Hearing: Unremarkable Hearing to Normal Conversational Volume
Cranial Nerve XI: Shoulder Shrug: Unremarkable
Muscle Strength, Overall: Full in Upper Extremities and Other (Full neck extensor and flexors)
Muscle Bulk & Tone: Bulk Unremarkable and Tone Unremarkable
Touch Sensation: Unremarkable
Coordination: Reaches for Objects without Difficulty
Data Reviewed
-
Labs: Report Reviewed
Reviewed with: Physician
Old Records: Summarized
Past History
Past History
ED Past Medical History: Arrthythmia (SA node dysfunction), CAD, HTN, Hypercholesterolemia, IDDM, Hypothyroidism and Other (Cricopharyngeus bar, Myasthenia Gravis)
ED Past Surgical History: Cardiac (medtronic pacemaker 2007) and Other
Social History
Tobacco: Non-smoker
Alcohol: None
Drug: None
Personal: Other
Living: alone
Employment: Retired
Family History
Family History: Other (Sister with diabetes)
Medications
-
Medications:
Generic Name Dose Route Start Last Admin
Trade Name Freq PRN Reason Stop Dose Admin
Amlodipine Besylate 2.5 mg 04/27/25 10:20 04/28/25 08:40
Amlodipine 2.5 Mg Tablet PO 05/19/25 07:59 Not Given
DAILY JACEK
Apixaban 5 mg 04/27/25 10:20
Apixaban (Eliquis) 5 Mg Tablet PO 05/18/25 19:59
On Hold: 04/23/25 14:10 BID JACEK
Bisacodyl 10 mg 04/20/25 17:06
Bisacodyl 10 Mg Rectal Suppository RECTAL 05/18/25 17:05
[id number] PRN
constipation
Dextrose 12.5 grams 04/20/25 11:37
Dextrose 50% (0.5 Grams/Ml) 50 Ml Syringe IV 05/18/25 11:36
[id number] PRN
hypoglycemia
Protocol
Furosemide 80 mg 04/21/25 08:00 04/21/25 09:44
Furosemide 20 Mg Tablet PO 05/19/25 07:59 80 mg
On Hold: 04/21/25 10:46 DAILY@08 JACEK Administration
Furosemide 40 mg 04/20/25 17:00 04/20/25 22:28
Furosemide 20 Mg Tablet PO 05/18/25 16:59 40 mg
On Hold: 04/21/25 10:46 DAILY@17 JACEK Administration
Glucagon 1 mg 04/20/25 11:37
Glucagon 1 Mg Vial IM 05/18/25 11:36
PRN PRN
hypoglycemia
Protocol
Hydralazine HCl 5 mg 04/20/25 13:38
Hydralazine 20 Mg/Ml Vial IV 05/18/25 13:37
Q4HPRN PRN
SBP>160
Calcium Gluconate 3,000 mg/ 280 mls @ 0 mls/hr 04/28/25 10:00
Sodium Chloride IV 04/28/25 10:01
ONCE ONE
As Directed
Albumin Human 12.5 grams in 250 mls @ 1,500 mls/hr 04/28/25 09:00
Albumin 5% INTRACATH 04/28/25 10:59
.Q10M JACEK
Levothyroxine Sodium 125 mcg 04/27/25 10:20 04/28/25 06:07
Levothyroxine 125 Mcg Tablet PO 05/19/25 05:59 125 mcg
DAILY@06 JACEK Administration
Lisinopril 40 mg 04/21/25 08:00 04/21/25 09:44
Lisinopril 20 Mg Tablet PO 05/19/25 07:59 40 mg
On Hold: 04/21/25 10:45 DAILY JACEK Administration
Metoprolol Tartrate 25 mg 04/27/25 10:20 04/28/25 08:41
Metoprolol 25 Mg Regular Release Tablet PO 05/21/25 19:59 25 mg
BID JACEK Administration
Ondansetron HCl 4 mg 04/21/25 13:22
Ondansetron 4 Mg/2 Ml Vial IV 05/19/25 13:21
Q8HPRN PRN
nausea, vomiting
Pantoprazole Sodium 40 mg 04/21/25 20:00 04/28/25 08:41
Pantoprazole Sodium 40 Mg/10 Ml Vial IV 05/19/25 19:59 40 mg
BID JACEK Administration
Patient Own Medication 0 unit 04/21/25 10:04
Insulin Pump - Patient's Own Novolog (Aspart) SC 05/19/25 10:03
PRN PRN
hyperglycemia
Patient Own Medication 0 unit 04/28/25 07:30 04/28/25 08:43
Insulin Pump - Patient's Own Novolog (Aspart) SC 05/26/25 07:29 Not Given
AC JACEK
Polyethylene Glycol 17 grams 04/27/25 10:20
Polyethylene Glycol Powder 17 Grams Packet PO 05/18/25 17:05
DAILYPRN PRN
constipation
Prednisone 60 mg 04/27/25 08:00 04/28/25 08:40
Prednisone 20 Mg Tablet PO 05/25/25 07:59 60 mg
DAILY JACEK Administration
Pyridostigmine [place] 90 mg 04/23/25 09:12 04/28/25 08:45
Pyridostigmine 60 Mg Tablet TUBE 05/18/25 16:59 90 mg
TID@08,12,17 JACEK Administration
Senna/Docusate Sodium 1 tablet 04/27/25 10:20
Docusate W/Senna (Carly-Colace) Tablet PO 05/18/25 17:05
BIDPRN PRN
constipation
Sodium Chloride 0 flush 04/20/25 13:00
Sodium Chloride 0.9% (Flush) Syringe IV 05/18/25 12:59
PER PROTOCOL JACEK
Sodium Chloride 10 ml 04/21/25 13:25 04/28/25 08:41
Sodium Chloride 0.9% (Preservative Free) 10 Ml Vial IV 05/19/25 09:59 10 ml
BID JACEK Administration
Sodium Chloride 0 flush 04/24/25 09:00
Sodium Chloride 0.9% (Flush) Syringe IV 05/22/25 08:59
PER PROTOCOL JACEK
--- NOTE | 2025-04-28 10:18 | W.PN.HOSP.TC ---
Today's Communication/Plan
-
Plasma exchange today
Oral steroids
Pyridostigmine
Follow coags. Hold Eliquis given persistent hypofibrinogenemia
Hold Lasix and DWIGHT avoiding hypotension following BMP
Diet with aspiration precautions
Adjust insulin regimen.
PT eval
Assessment / Plan
Assessment / Plan
Impression:
Presentation with worsening fatigue, motor aphasia and dysphagia.
Myasthenia gravis flare
Dysphagia with aspiration risk secondary to above
Coagulopathy secondary to plasma exchange and Eliquis/hypofibrinogenemia
Conditions prior to admission
Essential hypertension
Dyslipidemia
IDDM on insulin pump.
CAD with history of CABG.
A flutter.
Anticoagulation with Eliquis.
History of TIA/CVA
Hypothyroidism on replacement.
Plan:
Myasthenia gravis flare.
Patient presents with worsening fatigue during the day, garbled speech and swallowing problem.
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
Recent flare requiring plasma exchange and systemic steroids treatment admitted on February 2025
Initiated on plasmapheresis for session 04/20/2025. will get 4/5 plasmapheresis round today
IV Solu-Medrol , got x5 doses, transition to prednisone at 60 mg daily
Continue pyridostigmine
Aspiration precautions
Speech and swallow eval. Diet advanced to dysphagia/pur�ed with thin liquids
Plasma exchange and Eliquis induced coagulopathy.
Noted with hypofibrinogenemia.
Hold Eliquis until fibrinogen level stable
Monitor PTT/PTT/fibrinogen daily. improved.
Status post albumin
Status post cryoprecipitate transfusion
Discussed with hematology
Aspiration syndrome secondary to myasthenia gravis
Repeat VSE 04/22 with severe oropharyngeal dysfunction and aspiration risk
Status post Dobbhoff placement on 04/22
Continue tube feeding
Continue aspiration precautions
Elevated white count.
Afebrile with no new complaints
Follow-up closely
Low threshold for IV antibiotics if febrile.
CXR clear
Aspiration precautions
IDDM.
Steroid-induced hyperglycemia
Continue insulin pump.
Initiated on subcutaneous supplemental insulin
Adjust regimen with expectation of steroid-induced hyperglycemia
CAD status post CABG
Recent echocardiogram with preserved EF.
Monitor volume status closely.
Noted acute kidney injury while on plasmapheresis recent admission.
Noted marginal BP. Hold lisinopril and furosemide. Follow BMP.
Continue metoprolol and Norvasc
A flutter
PPM
Rate control with metoprolol.
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
Hypothyroidism on replacement
Anticipated Discharge: 24 - 48 hours
Subjective/Interval History
-
Date of Service: April 28, 2025
Objective Data
-
Labs:
Laboratory Results
04/28/25
08:33
PT 15.5 H
INR 1.20
APTT 30.8
Vital Signs:
Vital Signs
Temp Pulse Resp BP Pulse Ox
97.8 F 73 16 117/62 97
04/28/25 07:47 04/28/25 08:41 04/27/25 14:00 04/28/25 08:40 04/28/25 02:59
I&O
04/27/25 04/28/25 04/29/25
06:59 06:59 06:59
Intake Total 960 / 960
Output Total 675 / 675 1235 / 1235
Balance -675 / -675 -275 / -275
Physical Exam
-
General: Cachectic
HEENT: Other (Dobhiff tube in place); Negative Oxygen
Cardiac: Negative Gallop
Skin: Negative Rash
Neuro: Awake, Alert, Oriented, AO x 3, Nonfocal/Grossly Intact and Other
[2025-04-28] MEDS: CALCIUM GLUCONATE 10% INJECTION 280 MG IV (10:44)
[2025-04-28] MEDS: PT'S OWN INSULIN PUMP - NovoLOG 5.5 UNIT SC (12:47)
[2025-04-28 12:58] LABS: Glucose - Point of Care 167 mg/dl (70-99)
--- NOTE | 2025-04-28 15:04 | CM ---
Following up on patient. CRISSY Cuellar asked for PT/OT consult. CRISSY Cuellar saw patient walking up and down the [place] with a walker so likely home no needs.
CRISSY Cuellar touched base with patient, he has no needs, hopes to discharge tomorrow, and has transportation home. IMM completed at 15:00
PLAN: Discharge to home no needs
--- NOTE | 2025-04-28 16:02 | PTOTSP ---
The patient ambulated 2 laps around IMU/ICU independently with use of a walker and performed a flight of stairs, offering no concerns regarding mobility upon return home. No PT needs identified at this time, will sign off.
[2025-04-28 17:12] LABS: Glucose - Point of Care 158 mg/dl (70-99)
[2025-04-28] MEDS: PT'S OWN INSULIN PUMP - NovoLOG 4 UNIT SC (18:27)
[2025-04-28 20:48] LABS: Glucose - Point of Care 224 mg/dl (70-99)
[2025-04-29] VITALS (16 sets, daily range): BP systolic 111–140; BP diastolic 50–76; PULSE 74; BMI 27.4
--- NOTE | 2025-04-29 00:08 | PTCARENOTE ---
Pt has no complaints at this time. Assessment care and vitals as charted. call meza within reach
[2025-04-29] MEDS: SYNTHROID 125 MCG PO (05:29)
--- NOTE | 2025-04-29 07:38 | W.PN.NEURO.1 ---
Today's Communication / Plan
-
Initiated prednisone 60 mg daily after completing methylprednisolone IV
Completed plasma exchange for a total of 5 treatments
Restart patient's apixaban
Speech therapy evaluation
Likely will need to change outpatient myasthenia gravis treatment from Rozanolixizumab to the use of Zilucoplan with azithromycin antibiotic
Arranging meningitis vaccinations as outpatient
Neuro Assessment/Plan
Assessment
Acute exacerbation of previously diagnosed myasthenia gravis with the patient experiencing worsening dysphagia, dysarthria, as well as neck weakness despite routine use of Rozanolixizumab. Patient is slowly responding to plasma exchange.
Completed methylprednisolone 1 g IV x 5
Plan
Initiated prednisone 60 mg daily after completing methylprednisolone IV
Completed plasma exchange for a total of 5 treatments
Restart patient's apixaban
Speech therapy evaluation
Likely will need to change outpatient myasthenia gravis treatment from Rozanolixizumab to the use of Zilucoplan with azithromycin antibiotic
Arranging meningitis vaccinations as outpatient
Will follow as outpatient
Subjective/Objective
Subjective Data
Date of Service: April 29, 2025
Objective Data
Vital Signs
Temp Pulse Resp BP Pulse Ox
36.4 C 72 16 136/68 98
04/28/25 23:01 04/29/25 06:00 04/27/25 14:00 04/29/25 06:00 04/28/25 23:01
Lab Results
04/27/25 09:23
PT 15.5 Sec (11.4-14.6) H 04/28/25 08:33
INR 1.20 04/28/25 08:33
APTT 30.8 Sec (23.4-35.0) 04/28/25 08:33
Sodium 140 mmol/L (135-145) 04/27/25 09:23
Potassium 3.9 mmol/L (3.5-5.1) 04/27/25 09:23
BUN 35 mg/dl (9-20) H 04/27/25 09:23
Glucose 133 mg/dl (70-99) H 04/27/25 09:23
Calcium 8.3 mg/dl (8.4-10.2) L 04/27/25 09:23
Patient Allergies
efgartigimod mary-fcab (From [email or web address]) Allergy (Verified 04/20/25 08:37)
Rash
Data Reviewed
-
Labs: Report Reviewed
Reviewed with: Nurse Practioner
Old Records: Summarized
Past History
Past History
ED Past Medical History: Arrthythmia (SA node dysfunction), CAD, HTN, Hypercholesterolemia, IDDM, Hypothyroidism and Other (Cricopharyngeus bar, Myasthenia Gravis)
ED Past Surgical History: Cardiac (medtronic pacemaker 2007) and Other
Social History
Tobacco: Non-smoker
Alcohol: None
Drug: None
Personal: Other
Living: alone
Employment: Retired
Family History
Family History: Other (Sister with diabetes)
Medications
-
Medications:
Generic Name Dose Route Start Last Admin
Trade Name Freq PRN Reason Stop Dose Admin
Amlodipine Besylate 2.5 mg 04/27/25 10:20 04/28/25 08:40
Amlodipine 2.5 Mg Tablet PO 05/19/25 07:59 Not Given
DAILY JACEK
Apixaban 5 mg 04/27/25 10:20
Apixaban (Eliquis) 5 Mg Tablet PO 05/18/25 19:59
On Hold: 04/23/25 14:10 BID JACEK
Bisacodyl 10 mg 04/20/25 17:06
Bisacodyl 10 Mg Rectal Suppository RECTAL 05/18/25 17:05
[id number] PRN
constipation
Dextrose 12.5 grams 04/20/25 11:37
Dextrose 50% (0.5 Grams/Ml) 50 Ml Syringe IV 05/18/25 11:36
[id number] PRN
hypoglycemia
Protocol
Furosemide 80 mg 04/21/25 08:00 04/21/25 09:44
Furosemide 20 Mg Tablet PO 05/19/25 07:59 80 mg
On Hold: 04/21/25 10:46 DAILY@08 JACEK Administration
Furosemide 40 mg 04/20/25 17:00 04/20/25 22:28
Furosemide 20 Mg Tablet PO 05/18/25 16:59 40 mg
On Hold: 04/21/25 10:46 DAILY@17 JACEK Administration
Glucagon 1 mg 04/20/25 11:37
Glucagon 1 Mg Vial IM 05/18/25 11:36
PRN PRN
hypoglycemia
Protocol
Hydralazine HCl 5 mg 04/20/25 13:38
Hydralazine 20 Mg/Ml Vial IV 05/18/25 13:37
Q4HPRN PRN
SBP>160
Levothyroxine Sodium 125 mcg 04/27/25 10:20 04/29/25 05:29
Levothyroxine 125 Mcg Tablet PO 05/19/25 05:59 125 mcg
DAILY@06 JACEK Administration
Lisinopril 40 mg 04/21/25 08:00 04/21/25 09:44
Lisinopril 20 Mg Tablet PO 05/19/25 07:59 40 mg
On Hold: 04/21/25 10:45 DAILY JACEK Administration
Metoprolol Tartrate 25 mg 04/27/25 10:20 04/28/25 20:13
Metoprolol 25 Mg Regular Release Tablet PO 05/21/25 19:59 25 mg
BID JACEK Administration
Ondansetron HCl 4 mg 04/21/25 13:22
Ondansetron 4 Mg/2 Ml Vial IV 05/19/25 13:21
Q8HPRN PRN
nausea, vomiting
Pantoprazole Sodium 40 mg 04/21/25 20:00 04/28/25 20:14
Pantoprazole Sodium 40 Mg/10 Ml Vial IV 05/19/25 19:59 40 mg
BID JACEK Administration
Patient Own Medication 0 unit 04/21/25 10:04
Insulin Pump - Patient's Own Novolog (Aspart) SC 05/19/25 10:03
PRN PRN
hyperglycemia
Patient Own Medication 0 unit 04/28/25 07:30 04/28/25 18:27
Insulin Pump - Patient's Own Novolog (Aspart) SC 05/26/25 07:29 4 unit
AC JACEK Administration
Polyethylene Glycol 17 grams 04/27/25 10:20
Polyethylene Glycol Powder 17 Grams Packet PO 05/18/25 17:05
DAILYPRN PRN
constipation
Prednisone 60 mg 04/27/25 08:00 04/28/25 08:40
Prednisone 20 Mg Tablet PO 05/25/25 07:59 60 mg
DAILY JACEK Administration
Pyridostigmine [place] 90 mg 04/23/25 09:12 04/28/25 17:16
Pyridostigmine 60 Mg Tablet TUBE 05/18/25 16:59 90 mg
TID@08,12,17 JACEK Administration
Senna/Docusate Sodium 1 tablet 04/27/25 10:20
Docusate W/Senna (Carly-Colace) Tablet PO 05/18/25 17:05
BIDPRN PRN
constipation
Sodium Chloride 0 flush 04/20/25 13:00
Sodium Chloride 0.9% (Flush) Syringe IV 05/18/25 12:59
PER PROTOCOL JACEK
Sodium Chloride 10 ml 04/21/25 13:25 04/28/25 20:14
Sodium Chloride 0.9% (Preservative Free) 10 Ml Vial IV 05/19/25 09:59 10 ml
BID JACEK Administration
Sodium Chloride 0 flush 04/24/25 09:00
Sodium Chloride 0.9% (Flush) Syringe IV 05/22/25 08:59
PER PROTOCOL JACEK
--- NOTE | 2025-04-29 07:56 | PN.DE.MGMTRT ---
Insulin Management
- -
04/29/2025: Diabetes Management Follow up
Patient admitted 04/20 with difficulty swallowing. PMH CAD s/p CABG, sss with pacemaker, HTN, HLD, type 1 diabetes, hypothyroid, myasthenia gravis. Patient known to me from both in patient and outpatient care. Prior to admission was using the
Medtronic pump with Guardian Sensor, NovoLog insulin and extended wear infusion set. States he sees Levar JIANG at [facility]. A1C on admission 7.1 %, cr 1.1, eGFR > 60.
Patient is awake alert and oriented. sitting up in chair, offers no complaints, able to discuss diabetes care.
Remains on steroids- Pred 60mg daily. Has restarted diet and is tolerating it well.
Full function of patients insulin pump was resumed yesterday, pt states he is administering bolus insulin for meals.
Glucose range 140 to 167. Fasting 137 POC this AM.
Set was changed on Sunday and is due to be changed Tomorrow -.
Pump Settings:
Basal CHO correction
12am .225 12 40
4am .250 12 40
6am .55 12 40
8AM .6 12 40
12pm .55 12 40
4am .4 12 40
24 hour basal total 10.3
Patient will continue insulin pump.
Discussed with nurse. Will cont to follow
Diabetes History
- -
Type of Diabetes: 1
Pre-Admission Diabetes Regimen
Lab Results
Hemoglobin A1c 7.1 % (4.0-5.6) H 04/21/25 05:36
Insulin Pump Settings
IP Diabetes Regimen
04/28/25 04/28/25 04/28/25
12:47 17:01 20:37
POC Glucose 167 H 158 H 224 H
Meal type: Dinner
Meal type: Breakfast
Amount consumed: 55%
Amount consumed: 100%
Patient Education
[2025-04-29 08:16] LABS: Glucose - Point of Care 137 mg/dl (70-99)
[2025-04-29] MEDS: PT'S OWN INSULIN PUMP - NovoLOG 3 UNIT SC (08:31)
[2025-04-29] MEDS: DELTASONE 60 MG PO (08:33)
[2025-04-29] MEDS: LOPRESSOR 25 MG PO ×2 (08:33→19:47)
[2025-04-29] MEDS: NSS (PRESERVATIVE FREE) 10 ML IV ×2 (08:34→19:48)
[2025-04-29] MEDS: PROTONIX IV 40 MG IV ×2 (08:34→19:48)
[2025-04-29] MEDS: NORVASC 2.5 MG PO (08:34)
[2025-04-29] MEDS: MESTINON 90 MG TUBE ×3 (08:36→17:32)
[2025-04-29 08:53] LABS: APTT 35.4 Sec (23.4-35.0); INR 1.84; PT 21.7 Sec (11.4-14.6)
[2025-04-29 08:59] LABS: Hematocrit 34.1 % (39.0-52.0); Hemoglobin 11.8 g/dL (13.0-18.0); Mean Corp Hgb Conc. 34.6 g/dL (33.0-37.0); Mean Corpuscular Volume 87.4 fL (80.0-94.0); Red Cell Dist. Width 15.3 % (11.5-14.5)
[2025-04-29 09:30] LABS: Fibrinogen < 60 MG/DL (199-459)
--- NOTE | 2025-04-29 09:37 | PTOTSP ---
pt currently requires supervision to no assistance to complete simple ADLs, functional transfers, ambulation. pt demonstrates no acute OT needs identified at this time, will sign off.
--- NOTE | 2025-04-29 10:08 | PTCARENOTE ---
Assumed care of patient at beginning of this shift from previous RN. Critical result called by chemistry: fibrinogen <60. Result sent by TT to both Dr Hernandez and Dr Blue; order for cryo entered by Dr Hernandez with repeat blood work for tomorrow
morning. Confirmed that eilquis remains on hold. Patient seen by ST this morning and cleared for 1800 cassandra diabetic diet. See worklist for full assessment and vital signs.
[2025-04-29 10:19] LABS: Platelet Count 68 10^3/uL (130-400)
--- NOTE | 2025-04-29 10:29 | PTOTSP ---
Dysphagia Therapy
Patient with improvements in speech/swallowing s/p PLEX 5/5 for MG exacerbation. Diet advancement recommended. See patient care note for details.1
Recommend:
1. Regular, Thin Liquids
2. Medications: crushed in applesauce if medically cleared to do so
3. Strategies: upright to 90 degrees, moisten foods well, cut foods into small pieces and chew well, small sips/bites, slow rate, small frequent meals to avoid fatigue, monitor closely for signs of fatigue/aspiration and take break if present
4. Oral care 3x daily to reduce risk for aspiration complications
5. Will f/u at the acute care level to assess clinical tolerance of diet advancement and if any further instrumental swallow testing warranted. Dysphagia therapy follow up and speech/language follow up warranted at the outpatient level
--- NOTE | 2025-04-29 11:07 | CM ---
Following up on patient.
CRISSY Cuellar spoke the [facility], Dr. Hernandez who said that patient is not ready today, perhaps tomorrow or the next day. Patient was told he has to stay long.
PLAN: Home with no needs
[2025-04-29 12:27] LABS: Glucose - Point of Care 211 mg/dl (70-99)
[2025-04-29] MEDS: PT'S OWN INSULIN PUMP - NovoLOG 4.2 UNIT SC (12:40)
--- NOTE | 2025-04-29 13:05 | PTCARENOTE ---
Patient received cryo without difficulty.
--- NOTE | 2025-04-29 15:09 | W.PN.HOSP.TC ---
Today's Communication/Plan
-
Overall neurologic status improved status post 5 sessions of plasma exchange
Continue prednisone
Outpatient follow-up with neurology for further maintenance regimen as outlined
Given low fibrinogen level repeat cryoprecipitate
Hold Eliquis
Right chest HD catheter to be discontinued prior to discharge
Continue PT assessment
Continue ST assessment
Monitor BP trend while off DWIGHT/Lasix
Continue insulin pump trending blood glucose
Assessment / Plan
Assessment / Plan
Impression:
Presentation with worsening fatigue, motor aphasia and dysphagia.
Myasthenia gravis flare
Dysphagia with aspiration risk secondary to above
Coagulopathy secondary to plasma exchange and Eliquis/hypofibrinogenemia
Conditions prior to admission
Essential hypertension
Dyslipidemia
IDDM on insulin pump.
CAD with history of CABG.
A flutter.
Anticoagulation with Eliquis.
History of TIA/CVA
Hypothyroidism on replacement.
Plan:
Myasthenia gravis flare.
Patient presents with worsening fatigue during the day, garbled speech and swallowing problem.
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
Recent flare requiring plasma exchange and systemic steroids treatment admitted on February 2025
Initiated on plasmapheresis for session 04/20/2025. Completed 5 sessions
IV Solu-Medrol , got x5 doses, transition to prednisone at 60 mg daily
Continue pyridostigmine
Aspiration precautions
Speech and swallow eval. Diet advanced to dysphagia/pur�ed with thin liquids
Plasma exchange and Eliquis induced coagulopathy.
Noted with hypofibrinogenemia.
Hold Eliquis until fibrinogen level stable
Monitor PTT/PTT/fibrinogen daily. improved.
Status post albumin
Status post cryoprecipitate transfusion
Discussed with hematology
Aspiration syndrome secondary to myasthenia gravis
Repeat VSE 04/22 with severe oropharyngeal dysfunction and aspiration risk
Status post Dobbhoff placement on 04/22
Continue tube feeding
Continue aspiration precautions
Elevated white count.
Afebrile with no new complaints
Follow-up closely
Low threshold for IV antibiotics if febrile.
CXR clear
Aspiration precautions
IDDM.
Steroid-induced hyperglycemia
Continue insulin pump.
Initiated on subcutaneous supplemental insulin
Adjust regimen with expectation of steroid-induced hyperglycemia
CAD status post CABG
Recent echocardiogram with preserved EF.
Monitor volume status closely.
Noted acute kidney injury while on plasmapheresis recent admission.
Noted marginal BP. Hold lisinopril and furosemide. Follow BMP.
Continue metoprolol and Norvasc
A flutter
PPM
Rate control with metoprolol.
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
Hypothyroidism on replacement
Anticipated Discharge: 24 - 48 hours
Subjective/Interval History
-
Date of Service: April 29, 2025
Objective Data
-
Labs:
Laboratory Results
04/29/25
08:14
WBC 10.8
Hgb 11.8 L
Hct 34.1 L
Plt Count 68 L D
PT 21.7 H
INR 1.84
APTT 35.4 H
Vital Signs:
Vital Signs
Temp Pulse Resp BP Pulse Ox
98 F 70 16 115/54 96
04/29/25 12:28 04/29/25 14:00 04/29/25 12:28 04/29/25 14:00 04/29/25 11:25
I&O
04/28/25 04/29/25 04/30/25
06:59 06:59 06:59
Intake Total 960 / 960 150 / 150
Output Total 1235 / 1235 1050 / 1050 175 / 175
Balance -275 / -275 -900 / -900 -175 / -175
Physical Exam
-
General: Well Developed and No Apparent Distress
HEENT: Normocephalic, Atraumatic and Moist Mucous Membranes
Respiratory: Clear to Auscultation
Cardiac: Regular Rhythm and S1/S2; Negative Murmur, Rub or Gallop
GI: Soft, Nontender, Nondistended and Normal Bowel Sounds; Negative Organomegaly
Rectal: Deferred by Provider
Musculoskeletal: No Clubbing, No Cyanosis and No Edema
Skin: Negative Rash
Neuro: Nonfocal/Grossly Intact
[2025-04-29] MEDS: PT'S OWN INSULIN PUMP - NovoLOG 3.3 UNIT SC (17:31)
[2025-04-29 17:41] LABS: Glucose - Point of Care 207 mg/dl (70-99)
[2025-04-29 21:53] LABS: Glucose - Point of Care 150 mg/dl (70-99)
[2025-04-30] VITALS (16 sets, daily range): BP systolic 105–137; BP diastolic 57–85; BMI 27.7
[2025-04-30] MEDS: SYNTHROID 125 MCG PO (05:00)
--- NOTE | 2025-04-30 06:26 | PTCARENOTE ---
pt aaox3, able to make needs known, rings appropriately. neuro checks q6. AV paced on monitor, BBB. Plan to be dc home today once fibrinogen level results. Pt resting comfortably in bed at this time. VSS. Care ongoing.
[2025-04-30 07:38] LABS: Glucose - Point of Care 103 mg/dl (70-99)
--- NOTE | 2025-04-30 08:32 | PN.DE.MGMTRT ---
Insulin Management
- -
04/30/2025: Diabetes Management Follow up
Patient admitted 04/20 with difficulty swallowing. PMH CAD s/p CABG, sss with pacemaker, HTN, HLD, type 1 diabetes, hypothyroid, myasthenia gravis. Patient known to me from both in patient and outpatient care. Prior to admission was using the
Medtronic pump with Guardian Sensor, NovoLog insulin and extended wear infusion set. States he sees Levar JIANG at [facility]. A1C on admission 7.1 %, cr 1.1, eGFR > 60.
Patient is awake alert and oriented. sitting up in chair, offers no complaints, able to discuss diabetes care.
Remains on steroids- Pred 60mg daily. Has restarted diet and is tolerating it well.
Patient continues to administer bolus insulin for meals.
Glucose range 137 to 211. Fasting 103 POC this AM.
Set was changed on Sunday and is due to be changed .
Pump Settings:
Basal CHO correction
12am .225 12 40
4am .250 12 40
6am .55 12 40
8AM .6 12 40
12pm .55 12 40
4am .4 12 40
24 hour basal total 10.3
Patient will continue insulin pump.
Discussed with nurse. Will cont to follow
Diabetes History
- -
Type of Diabetes: 1
Pre-Admission Diabetes Regimen
Lab Results
Hemoglobin A1c 7.1 % (4.0-5.6) H 04/21/25 05:36
Insulin Pump Settings
IP Diabetes Regimen
04/29/25 04/29/25 04/29/25
12:16 17:30 21:41
POC Glucose 211 H 207 H 150 H
04/30/25
07:26
POC Glucose 103 H
Meal type: Breakfast
Amount consumed: 100%
Patient Education
[2025-04-30] MEDS: NSS (PRESERVATIVE FREE) 10 ML IV ×2 (08:37→19:28)
[2025-04-30] MEDS: NORVASC 2.5 MG PO (08:38)
[2025-04-30] MEDS: PROTONIX IV 40 MG IV ×2 (08:38→19:28)
[2025-04-30] MEDS: LOPRESSOR 25 MG PO ×2 (08:38→19:28)
[2025-04-30] MEDS: MESTINON 90 MG TUBE ×3 (08:43→17:39)
[2025-04-30] MEDS: DELTASONE 60 MG PO (08:43)
[2025-04-30] MEDS: PT'S OWN INSULIN PUMP - NovoLOG 4.2 UNIT SC (08:44)
[2025-04-30 10:10] LABS: INR 1.32; PT 16.9 Sec (11.4-14.6)
[2025-04-30 10:11] LABS: APTT 33.6 Sec (23.4-35.0)
[2025-04-30 10:31] LABS: Fibrinogen 115 MG/DL (199-459)
[2025-04-30 13:16] LABS: Glucose - Point of Care 112 mg/dl (70-99)
[2025-04-30] MEDS: PT'S OWN INSULIN PUMP - NovoLOG 4.5 UNIT SC (13:23)
--- NOTE | 2025-04-30 15:09 | CM ---
Following up on Patient.
Medical Attending and RN stated patient is still not ready.
PLAN: Possible discharge tomorrow.
--- NOTE | 2025-04-30 15:37 | W.PN.HOSP.TC ---
Today's Communication/Plan
-
Fibrinogen levels remains low
Transfused additional cryoprecipitate
Hold Eliquis
Has been off Lasix and DWIGHT
Continue PT
Diet has been advanced with aspiration precaution
Assessment / Plan
Assessment / Plan
Impression:
Presentation with worsening fatigue, motor aphasia and dysphagia.
Myasthenia gravis flare
Dysphagia with aspiration risk secondary to above
Coagulopathy secondary to plasma exchange and Eliquis/hypofibrinogenemia
Conditions prior to admission
Essential hypertension
Dyslipidemia
IDDM on insulin pump.
CAD with history of CABG.
A flutter.
Anticoagulation with Eliquis.
History of TIA/CVA
Hypothyroidism on replacement.
Stage 2 coccyx pressure injury, POA
Plan:
Myasthenia gravis flare.
Patient presents with worsening fatigue during the day, garbled speech and swallowing problem.
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
Recent flare requiring plasma exchange and systemic steroids treatment admitted on February 2025
Initiated on plasmapheresis for session 04/20/2025. Completed 5 sessions
IV Solu-Medrol , got x5 doses, transition to prednisone at 60 mg daily
Continue pyridostigmine
Aspiration precautions
Speech and swallow eval. Diet advanced to dysphagia/pur�ed with thin liquids
Plasma exchange and Eliquis induced coagulopathy.
Noted with hypofibrinogenemia.
Hold Eliquis until fibrinogen level stable
Monitor PTT/PTT/fibrinogen daily. improved.
Status post albumin
Status post cryoprecipitate transfusion
Discussed with hematology
Aspiration syndrome secondary to myasthenia gravis
Repeat VSE 04/22 with severe oropharyngeal dysfunction and aspiration risk
Status post Dobbhoff placement on 04/22
Continue tube feeding
Continue aspiration precautions
Elevated white count.
Afebrile with no new complaints
Follow-up closely
Low threshold for IV antibiotics if febrile.
CXR clear
Aspiration precautions
IDDM.
Steroid-induced hyperglycemia
Continue insulin pump.
Initiated on subcutaneous supplemental insulin
Adjust regimen with expectation of steroid-induced hyperglycemia
CAD status post CABG
Recent echocardiogram with preserved EF.
Monitor volume status closely.
Noted acute kidney injury while on plasmapheresis recent admission.
Noted marginal BP. Hold lisinopril and furosemide. Follow BMP.
Continue metoprolol and Norvasc
A flutter
PPM
Rate control with metoprolol.
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
Hypothyroidism on replacement
Anticipated Discharge: 24 - 48 hours
Subjective/Interval History
-
Date of Service: April 30, 2025
Objective Data
-
Labs:
Laboratory Results
04/30/25
09:44
PT 16.9 H
INR 1.32
APTT 33.6
Vital Signs:
Vital Signs
Temp Pulse Resp BP Pulse Ox
98.0 F 91 16 137/57 94
04/30/25 11:35 04/30/25 08:38 04/29/25 12:28 04/30/25 08:38 04/29/25 22:00
I&O
04/29/25 04/30/25 05/01/25
06:59 06:59 06:59
Intake Total 150 / 150
Output Total 1050 / 1050 1725 / 1725 175 / 175
Balance -900 / -900 -1725 / -1725 -175 / -175
Physical Exam
-
General: Well Developed and No Apparent Distress
HEENT: Normocephalic, Atraumatic and Moist Mucous Membranes
Respiratory: Clear to Auscultation
Cardiac: Regular Rhythm and S1/S2; Negative Murmur, Rub or Gallop
GI: Soft, Nontender, Nondistended and Normal Bowel Sounds; Negative Organomegaly
Rectal: Deferred by Provider
Musculoskeletal: No Clubbing, No Cyanosis and No Edema
Skin: Negative Rash
Neuro: Nonfocal/Grossly Intact
[2025-04-30 17:09] LABS: Glucose - Point of Care 234 mg/dl (70-99)
[2025-04-30] MEDS: PT'S OWN INSULIN PUMP - NovoLOG 4.1 UNIT SC (17:38)
--- NOTE | 2025-04-30 19:17 | PTCARENOTE ---
Patient tolerated Cryo infusion, will redraw lab in am to evaluate for discharge
[2025-04-30 21:11] LABS: Glucose - Point of Care 231 mg/dl (70-99)
[2025-05-01] VITALS: BP 133/70
[2025-05-01 02:00] VITALS: BP 130/71
[2025-05-01 03:16] VITALS: BMI 27.4
[2025-05-01 04:00] VITALS: BP 126/62
[2025-05-01 06:00] VITALS: BP 134/69
[2025-05-01] MEDS: SYNTHROID 125 MCG PO (06:04)
[2025-05-01 07:18] LABS: Glucose - Point of Care 150 mg/dl (70-99)
[2025-05-01 07:43] LABS: Hematocrit 35.2 % (39.0-52.0); Hemoglobin 11.9 g/dL (13.0-18.0); Mean Corp Hgb Conc. 33.8 g/dL (33.0-37.0); Mean Corpuscular Volume 89.6 fL (80.0-94.0); Nucleated Red Blood Cells % 0 % (-); Platelet Count 125 10^3/uL (130-400); Red Cell Dist. Width 15.2 % (11.5-14.5)
[2025-05-01 07:52] LABS: APTT 29.1 Sec (23.4-35.0); INR 1.23; PT 15.8 Sec (11.4-14.6)
--- NOTE | 2025-05-01 08:00 | PN.DE.MGMTRT ---
Insulin Management
- -
05/01/2025: Diabetes Management Follow up
Patient admitted 04/20 with difficulty swallowing. PMH CAD s/p CABG, sss with pacemaker, HTN, HLD, type 1 diabetes, hypothyroid, myasthenia gravis. Patient known to me from both in patient and outpatient care. Prior to admission was using the
Medtronic pump with Guardian Sensor, NovoLog insulin and extended wear infusion set. States he sees Levar JIANG at [facility]. A1C on admission 7.1 %, cr 1.1, eGFR > 60.
Patient is awake alert and oriented, pleasant, sitting up in bed, offers no complaints, able to discuss diabetes care.
Remains on steroids- Pred 60mg daily. Continues on diet and is tolerating it well.
Patient continues to administer bolus insulin for meals.
Glucose range 112 to 234. Fasting 127 V, 150 POC this AM.
Set was changed yesterday and is due to be changed next week on Sunday.
Pump Settings:
Basal CHO correction
12am .225 12 40
4am .250 12 40
6am .55 12 40
8AM .6 12 40
12pm .55 12 40
4am .4 12 40
24 hour basal total 10.3
Patient will continue insulin pump.
Discussed with nurse. Will cont to follow
Diabetes History
- -
Type of Diabetes: 1
Pre-Admission Diabetes Regimen
Lab Results
Hemoglobin A1c 7.1 % (4.0-5.6) H 04/21/25 05:36
Insulin Pump Settings
IP Diabetes Regimen
04/30/25 04/30/25 04/30/25
13:05 16:58 20:59
POC Glucose 112 H 234 H 231 H
05/01/25
07:06
POC Glucose 150 H
Meal type: Breakfast
Amount consumed: 100%
Patient Education
[2025-05-01 08:10] LABS: Blood Urea Nitrogen 19 mg/dl (9-20); Calcium 8.2 mg/dl (8.4-10.2); Carbon Dioxide 29 mmol/L (22-30); Chloride 104 mmol/L (98-107); Estimated Creatinine Clearance 71 ml/min; Fibrinogen 168 MG/DL (199-459); Glucose 127 mg/dl (70-99); Potassium 4.5 mmol/L (3.5-5.1); Sodium 135 mmol/L (135-145); eGFR > 60.00
--- NOTE | 2025-05-01 08:11 | PTCARENOTE ---
On walking rounds pt AAOx3 AV paced. Pt on RA.
[2025-05-01] MEDS: LOPRESSOR 25 MG PO (09:14)
[2025-05-01] MEDS: NORVASC 2.5 MG PO (09:16)
[2025-05-01] MEDS: DELTASONE 60 MG PO (09:17)
[2025-05-01] MEDS: PROTONIX IV 40 MG IV (09:17)
[2025-05-01] MEDS: NSS (PRESERVATIVE FREE) 10 ML IV (09:18)
[2025-05-01] MEDS: MESTINON 90 MG TUBE ×2 (09:21→12:10)
[2025-05-01] MEDS: PT'S OWN INSULIN PUMP - NovoLOG 4.1 UNIT SC (09:28)
--- NOTE | 2025-05-01 11:05 | W.DS.TRANS ---
DC Summary - Weight Analyst
-
Discharge Instructions:
Discharge Diagnosis/Procedures Myasthenia gravis flare
Dysphagia with aspiration risk secondary to
above
Coagulopathy secondary to plasma exchange and
Eliquis/hypofibrinogenemia
Diet Diabetic, Carb Controlled
Blood Work CBC, BMP, Fibrinogen, Ptt/Pt-INR on 05/04
Instructions:
Stand-Alone Forms:
Changes to Home Medications: No
Discharge Medications:
DC Medications w/original date entered in [facility]
atorvastatin 80 mg tablet 80 mg PO DAILY High cholesterol 04/28/15
metoprolol succinate 50 mg tablet,extended release 24 hr 50 mg PO DAILY Blood Pressure 12/06/23
pyridostigmine bromide 60 mg tablet 60 mg PO TID@,, myasthenia gravis 12/06/23
Patient Own Insulin Pump 0 units SC .VIA PUMP Diabetes 02/10/24
amlodipine 2.5 mg tablet 2.5 mg PO DAILY Blood Pressure 04/20/25
apixaban 5 mg tablet (Eliquis) 5 mg PO BID Blood Clot Prevention/Tx 04/20/25
Held on 05/01/25. Instructions: Resume on 05/04/25.
furosemide 20 mg tablet 40 mg PO DAILY@17 Fluid Retention/Swelling 04/20/25
Held on 05/01/25. Instructions: Resume on 05/04/25.
furosemide 20 mg tablet 80 mg PO DAILY@08 Fluid Retention/Swelling 04/20/25
Held on 05/01/25. Instructions: Resume on 05/04/25.
levothyroxine 125 mcg tablet 125 mcg PO DAILY@06 Thyroid 04/20/25
lisinopril 40 mg tablet 40 mg PO DAILY Blood Pressure 04/20/25
Held on 05/01/25. Instructions: Resume on 05/04/25.
pantoprazole 40 mg granules delayed-release for susp in packet (Protonix) 40 mg PO DAILY #30 ea 05/01/25
polyethylene glycol 3350 17 gram oral powder packet 17 g PO DAILYPRN PRN constipation #30 ea 05/01/25
prednisone 20 mg tablet 60 mg (3 x 20 mg) PO DAILY #90 tabs 05/01/25
Home Medication Changes
Prednisone, Protonix
Pending Results: No
[2025-05-01 11:35] VITALS: BP 136/63
--- NOTE | 2025-05-01 11:38 | CM ---
Following up on Patient.
Medical Attending is ready to discharge the patient and put in a consult for Home VN. CRISSY Cuellar spoke to Medical Attending who stated it was for blood work/ labs.
CRISSY Cuellar was educated by [facility] medical center representative that an agency does not provide home labs usually, onny for Medicare, and if there are other Home VN needs. This patient's insurance will not pay a Home VN service for this. CRISSY Cuellar spoke to Medical
Attending again in person to say that he would need to go outpatient.
CRISSY Cuellar met with patient and he can utilize outpatient lab center on the 1st floor on Sunday. Patient has transportation & IMM completed at 11:27.
PLAN: Home No Needs.
--- NOTE | 2025-05-01 12:15 | PTCARENOTE ---
Pt left via wc
== END 2025-05-01 12:16 | disposition home or self-care (01) | DRG 57 ==
LOC: IMU 11:42
PROVIDERS: Nurse Practitioner Acute Care; Radiology Vascular & Interventional Radiology; ADMITTING PHYSICIAN Internal Medicine; ATTENDING PHYSICIAN Internal Medicine; CONSULT PHYSICIAN Internal Medicine Gastroenterology; CONSULT PHYSICIAN Psychiatry & Neurology Neurology; EMERGENCY PHYSICIAN Emergency Medicine; FAMILY PHYSICIAN Family Medicine; OTHER PHYSICIAN Internal Medicine Hematology & Oncology
PROC: 6A551Z3 Pheresis of Plasma, Multiple (ICD-10-PCS; 2025-04-20)
PROC: 02HV33Z Insertion of Infusion Device into Superior Vena Cava, Percutaneous Approach (ICD-10-PCS; 2025-04-20)
PROC: 30233M1 Transfusion of Nonautologous Plasma Cryoprecipitate into Peripheral Vein, Percutaneous Approach (ICD-10-PCS; 2025-04-23)
DX: G70.01 Myasthenia gravis with (acute) exacerbation (principal); I48.92 Unspecified atrial flutter; K92.0 Hematemesis; D68.32 Hemorrhagic disorder due to extrinsic circulating anticoagulants; D68.8 Other specified coagulation defects; I10 Essential (primary) hypertension; I25.10 Atherosclerotic heart disease of native coronary artery without angina pectoris; E78.00 Pure hypercholesterolemia, unspecified; E03.9 Hypothyroidism, unspecified; I49.5 Sick sinus syndrome; R13.12 Dysphagia, oropharyngeal phase; L89.152 Pressure ulcer of sacral region, stage 2; T45.515A Adverse effect of anticoagulants, initial encounter; E10.65 Type 1 diabetes mellitus with hyperglycemia; T38.0X5A Adverse effect of glucocorticoids and synthetic analogues, initial encounter; D69.59 Other secondary thrombocytopenia; Z95.1 Presence of aortocoronary bypass graft; Z95.0 Presence of cardiac pacemaker; Z86.73 Personal history of transient ischemic attack (TIA), and cerebral infarction without residual deficits; Z96.41 Presence of insulin pump (external) (internal); Z96.651 Presence of right artificial knee joint; Z79.899 Other long term (current) drug therapy; Z79.890 Hormone replacement therapy; Z79.01 Long term (current) use of anticoagulants; Z88.8 Allergy status to other drugs, medicaments and biological substances
CPT/HCPCS: 36556; 71045; 74018; 74230; 76937; 77001; 80048; 80053; 82962; 83036; 83735; 85018; 85025; 85027; 85384; 85610; 85730; 86850; 86900; 86901; 92526; 92610; 92611; 93005; 96360; 97162; 97167; 99285; C1752; P9012; P9045

== ENCOUNTER → 2025-05-04 06:26 | Outpatient (REF) | payer OTHER, SELFPAY ==
[2025-05-04 07:22] LABS: Blood Urea Nitrogen 16 mg/dl (9-20); Calcium 8.1 mg/dl (8.4-10.2); Carbon Dioxide 25 mmol/L (22-30); Chloride 109 mmol/L (98-107); Glucose 140 mg/dl (70-99); Potassium 4.6 mmol/L (3.5-5.1); Sodium 136 mmol/L (135-145); eGFR > 60.00
[2025-05-04 07:25] LABS: APTT 27.8 Sec (23.4-35.0); INR 1.11; PT 14.6 Sec (11.4-14.6)
[2025-05-04 07:26] LABS: Fibrinogen 187 MG/DL (199-459)
== END ==
LOC: REG 06:26
PROVIDERS: ATTENDING PHYSICIAN Internal Medicine; FAMILY PHYSICIAN Family Medicine
DX: G70.00 Myasthenia gravis without (acute) exacerbation (principal)
CPT/HCPCS: 36415; 80048; 85384; 85610; 85730

== ENCOUNTER → 2025-05-07 06:16 | Outpatient (REF) | payer OTHER, SELFPAY ==
[2025-05-07 08:03] LABS: Fibrinogen 367 MG/DL (199-459)
== END ==
LOC: REG 06:16
PROVIDERS: FAMILY PHYSICIAN Family Medicine
DX: D68.8 Other specified coagulation defects (principal)
CPT/HCPCS: 36415; 85384

== ENCOUNTER 2025-06-10 14:11 | Inpatient (IN) | payer OTHER, SELFPAY ==
[2025-06-10] VITALS (9 sets, daily range): BP systolic 126–145; BP diastolic 64–80; BMI 30.6; BMI 29.2
--- NOTE | 2025-06-10 11:12 | ED.GENMED ---
History of Present Illness
General
Chief Complaint: Breathing Problem
Time Seen by Provider: 06/10/25 10:57
History of Present Illness
History of Present Illness:
80-year-old male with history of myasthenia gravis, A-fib status post pacemaker, CAD/CABG, hypertension, hyperlipidemia, insulin-dependent diabetes, and CHF presents to the emergency department for evaluation of increasing lower extremity edema. He
admits to poor compliance with his furosemide regimen although it is unclear exactly how many pills he has been taking each day. He states that he takes less on days where he has to be 'out and about'. He denies shortness of breath or chest pain
at this time but reports 12 to 15 pound weight gain off of his dry weight. Awoke this morning with his pants and socks saturated with edema
Past History
Past History
ED Past Medical History: Arrthythmia (SA node dysfunction), CAD, HTN, Hypercholesterolemia, IDDM, Hypothyroidism and Other (Cricopharyngeus bar, Myasthenia Gravis)
ED Past Surgical History: Cardiac (medtronic pacemaker 2007) and Other
Social History
Tobacco: Non-smoker
Alcohol: None
Drug: None
Personal: Other
Living: alone
Employment: Retired
Family History
Family History: Other (Sister with diabetes)
Review of Systems
Review of Systems
Allergies reviewed?: Yes
All Other Systems: ROS reviewed and negative except as documented in HPI and ROS
Phy Exam
Physical Exam
Physical Exam:
GEN: Well appearing, NAD, WDWN
HEENT: Oral mucosa moist, no scleral icterus
Cardiac: Regular rate and rhythm, no murmur
Lung: No respiratory distress, no tachypnea, faint crackles in the bases
MSK: No gross deformity or injuries, massive bilateral lower extremity edema with active serous discharge, numerous ulcerations superficially to the left lower extremity
Skin: Good color, no pallor or jaundice, no rashes
Neuro: AO x3, moves all extremities freely
Psych: Calm, cooperative
Scores
Heart Failure Risk
Heart Failure Risk Score: Not Applicable
Course
Orders/Labs/Results
Orders:
Orders
06/10/25 10:31
EKG [Electrocardiogram (*1)] Urgent
Reason for Study: Shortness of Breath
06/10/25 10:32
EKG- Treatment ONCE
06/10/25 10:53
CR Chest - 2 Views Urgent
Comment:
Reason For Exam: soob
06/10/25 11:13
Complete Blood Count/With Diff Urgent
06/10/25 11:41
Comprehensive Metabolic Panel Urgent
Magnesium Urgent
NT-proBNP Urgent
Troponin I Urgent
06/10/25 12:35
Furosemide [Lasix] 80 mg IV NOW STA
06/10/25 13:36
Admit/Transfer Patient As Directed
Co-Sign Provider:
Level of Care: Inpatient admission
Assign to:: Telemetry
Physician / Group: Dennis
Diagnosis: CHF
Reason for Telemetry: Acute Heart Failure
Date to Stop Telemetry: 06/13/25
Time to Stop Telemetry: 11:00
Reason for Hospitalization: IV diuretics
Expected length of stay greater than two midnights?: Yes
ELOS- Estimated Length of Stay in days: 3
I certify the patient meets the requirements for IP care: Yes
06/10/25 13:37
PRN Pain Medication Management As Directed
May give lesser potent ordered pain med per pt: Yes
preference::
Protocol:: Medication orders for pain may be administered in a
manner that supports deferring to patient preference
when the pt is:
- Requesting an ordered lesser potent pain medication.
Least to most potent pain medications are defined
as: acetaminophen < NSAID < tramadol < opioids
(morphine, oxycodone, hydromorphone).
- Requesting a lesser dose of the same medication IF
ORDERED.
- Requesting a less intrusive route of administration
if both routes are prescribed by the provider (PO <
IV).
06/10/25 13:40
Code Status As Directed
Resuscitation Status: Full Code
06/10/25 Dinner
2000 calorie (17 carb) Diabetic
At Your Request: Limited Participation
Does patient need a safe tray?: No
Diabetic Diet: Sodium, 2 Gram
06/10/25 15:32
Dextrose 50%-Water [Dextrose 50% Syringe] 12.5 grams IV [id number] PRN
Glucagon [GlucaGen] 1 mg IM PRN PRN
Pt's Own Ins. Pump Aspart [PT'S OWN INSULIN PUMP - NovoLOG] See Dose Instructions SC PRN PRN
06/10/25 15:32
HF DIETARY CONSULT Routine
HF EDUCATOR CONSULT Routine
Comment:
Activity As Directed
Activity Level: Out of Bed-Early Mobility
Bedside Glucose Monitoring As Directed
Frequency: AC&HS
Intake/ Output As Directed
Frequency: Per unit guidelines
Patient Education As Directed
Type: CHF folder
Comment: give on admission. Document in Interdisciplinary Education record
Sleep Apnea Assessment by RN As Directed
Comment:
Physician Instructions:
Vital Signs As Directed
Frequency: Other
Additional Instructions:: Q12 or per unit guidelines if more frequent.
Weight As Directed
Frequency: Daily
Type of Scale: Standing Scale
Comment: Daily morning weight. If unable to stand, use balanced bed scale.
Weight As Directed
Frequency: Once
Type of Scale: Standing Scale
Comment: Upon Admission. If unable to stand, use balanced bed scale.
Pulse Ox/cont/shift [RESP] Routine
Quantity: 1
Special Instructions: Daily pulse oximetry at rest. If greater than 92% at rest also obtain pulse oximetry
while ambulating as tolerated.
06/10/25 16:30
Pt's Own Ins. Pump Aspart [PT'S OWN INSULIN PUMP - NovoLOG] See Dose Instructions SC ACHS
06/10/25 17:00
Pyridostigmine [Mestinon] 60 mg PO TID@08,12,17
06/10/25 20:00
Apixaban [Eliquis] 5 mg PO BID
06/11/25 06:00
Basic Metabolic Panel IN AM
Complete Blood Count/No Diff IN AM
Magnesium IN AM
Levothyroxine [Synthroid] 125 mcg PO DAILY@0600
06/11/25 08:00
Amlodipine [Norvasc] 2.5 mg PO DAILY
Atorvastatin [Lipitor] 80 mg PO DAILY
Azithromycin [Zithromax] 500 mg PO DAILY
Furosemide [Lasix] 80 mg IV BID AT 0800,1600
Lisinopril [Zestril] 40 mg PO DAILY
Metoprolol Xl [Toprol Xl] 50 mg PO DAILY
Prednisone [Deltasone] 30 mg PO DAILY
06/12/25 06:00
Basic Metabolic Panel IN AM
06/13/25 06:00
Basic Metabolic Panel IN AM
06/13/25 11:00
DC Protocol for Telemetry ONCE
Abnormal Lab Results
06/10/25 06/10/25
11:13 11:41
RBC 4.25 L 10^6/uL
(4.70-6.10)
MCV 96.0 H fL
(80.0-94.0)
MCH 31.5 H pg
(27.0-31.0)
MCHC 32.8 L g/dL
(33.0-37.0)
RDW 17.5 H %
(11.5-14.5)
Abs Immat Gran (auto) 0.1 H 10^3/uL
(0-0.05)
Absolute Neuts (auto) 6.8 H 10^3/uL
(1.4-6.5)
Absolute Lymphs (auto) 0.4 L 10^3/uL
(1.2-3.4)
Immature Gran % 1.4 H %
(0-0.5)
Neutrophils % 85.1 H %
(42.2-75.2)
Lymphocytes % 4.8 L %
(20.5-51.1)
Carbon Dioxide 35 H mmol/L
(22-30)
BUN 29 H mg/dl
(9-20)
Glucose 164 H mg/dl
(70-99)
Calcium 8.2 L mg/dl
(8.4-10.2)
ALT 51 H U/L
(0-50)
Total Protein 5.9 L g/dl
(6.3-8.2)
Albumin 3.4 L g/dl
(3.5-5.0)
06/10/25 11:13
06/10/25 11:41
Vital Signs
Initial and Last Documented VS:
Initial Vital Signs
Pulse Resp BP Pulse Ox
84 22 136/68 91
06/10/25 10:31 06/10/25 10:31 06/10/25 10:31 06/10/25 10:31
Last Documented Vital Signs
Temp Pulse Resp BP Pulse Ox
98.4 F 74 16 144/75 99
06/10/25 16:19 06/10/25 16:19 06/10/25 16:19 06/10/25 16:19 06/10/25 16:26
MDM/Problems Addressed
MDM/Problems Addressed:
Due to massive lower extremity edema in the setting of diuretic noncompliance will admit the patient for IV diuretics which requires intensive monitoring
Comment
Comment:
EKG independently interpreted by me reveals an AV paced rhythm
*Pulse Oximetry
SaO2: 93
Oxygen Mode of Delivery: Room air
Patient hypoxic: no
*Critical Care Note
Total Time (30-74mins, 75-104mins- exclusive of procedures): Not Applicable
ED Attending Note
-
Portions of this chart may have been created with voice recognition software.� Occasional wrong word or��sound alike� substitutions may have occurred due to the inherent limitations of voice recognition software.
Discharge Plan
Departure
Patient Disposition: Admit
Date of Disposition: 06/10/25
Time of Disposition: 12:38
Admit to: Med/Surg
Presentation/result/management discussed w/ accepting MD/DO: Hospitalist
Discharge Problem:
Hypervolemia
Interventions
Interventions:
*Risk Screen - Suicide Last Done: 06/10/25 10:40
*General Assessment Last Done: 06/10/25 10:37
*Neglect/Abuse Screening Last Done: 06/10/25 10:40
*ED- Fall Risk Assessment Last Done: 06/10/25 10:37
*ED COVID-19 Vaccine History Last Done: 06/10/25 15:53
*ED Influenza Vaccine History Last Done: 06/10/25 10:37
*Nursing Disposition Last Done: 06/10/25 15:28
ED- Cardiac Assessment Last Done: 06/10/25 10:40
ED- Pulmonary Assessment Last Done: 06/10/25 10:40
Discharge Date and Time
Discharge Date/Time: 06/10/25 15:28
[2025-06-10 11:26] LABS: Hematocrit 40.8 % (39.0-52.0); Hemoglobin 13.4 g/dL (13.0-18.0); Mean Corp Hgb Conc. 32.8 g/dL (33.0-37.0); Mean Corpuscular Volume 96.0 fL (80.0-94.0); Nucleated Red Blood Cells % 0 % (-); Platelet Count 144 10^3/uL (130-400); Red Cell Dist. Width 17.5 % (11.5-14.5)
[2025-06-10 12:09] LABS: ALT (SGPT) 51 U/L (0-50); AST (SGOT) 37 U/L (17-59); Albumin 3.4 g/dl (3.5-5.0); Alkaline Phosphatase 61 U/L (38-126); Blood Urea Nitrogen 29 mg/dl (9-20); Calcium 8.2 mg/dl (8.4-10.2); Carbon Dioxide 35 mmol/L (22-30); Chloride 104 mmol/L (98-107); Estimated Creatinine Clearance 72 ml/min; Glucose 164 mg/dl (70-99); Magnesium 2.1 mg/dl (1.6-2.3); Potassium 4.2 mmol/L (3.5-5.1); Sodium 136 mmol/L (135-145); Total Protein 5.9 g/dl (6.3-8.2); eGFR > 60.00
[2025-06-10 12:21] LABS: Troponin I 0.022 ng/ml
--- NOTE | 2025-06-10 12:50 | HPS.HSE ---
Family Physician
-
Family Physician: Gary Norton
Chief Complaint
-
Lower Extremity Edema
History of Present Illness
Patient is an 80 y/o male past medical history of CAD, CHF, Atrial flutter, IDDM, and myasthenia gravis who presents with increased lower extremity edema. Patient reports his has been experiencing increased lower extremity edema over the past week,
but notes over the last few days it has been getting worse and now notes his pant legs have been damp due to the fluid leaking from the legs. Patient reports associated weight gain of about 12lbs. He also noted increasnig dyspnea on exertion. He
reports needs to take each step individually and stops on most steps due to shortness of breath. He reports he does not always take his Lasix as prescribed, noting he frequently misses doses. He denies fevers, sweats or chills.
Medical History
Past Medical History
Past Medical History: Reports Other
Additional Past Medical History:
Coronary Artery Disease s/p CABG
Chronic HFpEF
Sick Sinus Syndrome s/p Pacemaker
Paroxysmal Atrial Fibrillation / Atrial Flutter
Essential Hypertension
Hyperlipidemia
Insulin-Dependent Diabetes Mellitus
Hypothyroidism
Myasthenia Gravis
Past Surgical History: Reports Other
Additional Past Surgical History:
CABG
PPM
Appendectomy
Hernia Repair
Right Total Knee Replacement
Social History
Tobacco: Non-smoker
Alcohol: None
Drug: None
Family History
Family History: Not pertinent
Allergies / Home Medications
Allergies reflects when Allergies were last updated in [facility].
Home Medications with original date entered in [facility]
Allergy/Medication List:
Allergies
Allergy/AdvReac Type Severity Reaction Status Date / Time
efgartigimod mary-fcab (From Allergy Rash Verified 04/20/25 08:37
Vyvgart)
Home Medications
atorvastatin 80 mg tablet 80 mg PO DAILY High cholesterol 04/28/15
metoprolol succinate 50 mg tablet,extended release 24 hr 50 mg PO DAILY Blood Pressure 12/06/23
pyridostigmine bromide 60 mg tablet 60 mg PO TID@08,12,17 myasthenia gravis 12/06/23
insulin aspart U-100 100 unit/mL subcutaneous solution (Novolog U-100 Insulin aspart) 1 sliding scale dose SC .VIA PUMP Diabetes ##0 02/10/24
amlodipine 2.5 mg tablet 2.5 mg PO DAILY Blood Pressure 04/20/25
apixaban 5 mg tablet (Eliquis) 5 mg PO BID Blood Clot Prevention/Tx 04/20/25
Held on 05/01/25. Instructions: Resume on 05/04/25.
furosemide 20 mg tablet 40 mg PO DAILY@17 Fluid Retention/Swelling 04/20/25
Held on 05/01/25. Instructions: Resume on 05/04/25.
furosemide 20 mg tablet 80 mg PO DAILY@08 Fluid Retention/Swelling 04/20/25
Held on 05/01/25. Instructions: Resume on 05/04/25.
levothyroxine 125 mcg tablet 125 mcg PO DAILY@06 Thyroid 04/20/25
lisinopril 40 mg tablet 40 mg PO DAILY Blood Pressure 04/20/25
Held on 05/01/25. Instructions: Resume on 05/04/25.
azithromycin 500 mg tablet 500 mg PO DAILY 06/10/25
prednisone 20 mg tablet 30 mg PO DAILY 06/10/25
Review of Systems
-
A 12 point ROS was completed and negative except as noted: Yes
Constitutional: Denies Fever or Chills
Respiratory: Reports Cough (Chronic) and Trouble Breathing
Cardiac: Denies Chest Pain or Palpitations
Musculoskeletal: Reports Edema
Physical Exam
Vital Signs
Vital Signs
Temp Pulse Resp BP Pulse Ox
97.9 F 72 18 126/64 93
06/10/25 10:32 06/10/25 11:00 06/10/25 11:00 06/10/25 11:00 06/10/25 11:13
Physical Exam
General: Comfortable and Conversant
HEENT: Anicteric and Moist mucous membranes
Respiratory: Rales (Bilateral bases) and Non Labored Respirations
Cardiac: S1/S2 and Regular Rhythm
GI: Soft and Non Tender
Rectal: Deferred by Provider
Musculoskeletal: No Clubbing, No Cyanosis and Other (Pitting edema bilateral lower extremities without serosanguinous drainage with some ulcers to the left lower extremity)
Skin: Warm and Dry
Neuro: Awake, Alert, Oriented and Nonfocal/grossly intact
Psych: Calm
Laboratory Results
-
06/10/25 11:13
06/10/25 11:41
Laboratory Results
Total Bilirubin 1.0 mg/dl (0.2-1.3) 06/10/25 11:41
AST 37 U/L (17-59) 06/10/25 11:41
ALT 51 U/L (0-50) H 06/10/25 11:41
Alkaline Phosphatase 61 U/L (38-126) 06/10/25 11:41
Troponin I 0.022 ng/ml 06/10/25 11:41
Data Reviewed
-
Diagnostic Radiology: Report Reviewed by me
Lab Data: Labs Reviewed by me
Old Records: Reviewed
Impression/Plan
-
Acute on Chronic HFpEF, likely related to missed Lasix doses
-Reviewed with patient importance of not missing doses at home
-Continue Lasix 80mg IV BID
-Monitor Daily Weights
Coronary Artery Disease s/p CABG
-Stable
Paroxysmal Atrial Fibrillation / Atrial Flutter
-Continue Eliquis
-Continue metoprolol
Essential Hypertension
-Continue amlodipine, lisinopril and metoprolol
Hyperlipidemia
-Continue atorvastatin
Insulin-Dependent Diabetes Mellitus
-hgbA1c 7.1 in Apr 2025
-Continue insulin pump
Hypothyroidism
-Continue levothyroxine
Myasthenia Gravis
-Continue prednisone and pyridostigmine
-Patient maintained on Soliris as outpatient - Continue azithromycin for prophylaxis
Hx Sick Sinus Syndrome s/p Pacemaker
DVT proph: Eliquis
Code Status: Full Code
[2025-06-10] MEDS: LASIX 80 MG IV (13:08)
--- NOTE | 2025-06-10 13:08 | W.PN.UPDATE ---
Addendum entered and electronically signed by Floridalma Collins MD 06/10/25 19:07:
Patient was on Protonix last admission. Given he is on Prednisone + Eliquis, will resume GI PPx. Patient is being weaned off of Prednisone as outpatient.
He is on Azithromycin for PPx
Addendum entered and electronically signed by Floridalma Collins MD 06/10/25 13:39:
IDDM
-OK for patient to use own insulin pump
Original Note:
Update Note
Progress Note Update
This is an addendum to H&P written by DEIDRE Ba
I saw and examined the patient.
The SURFACE LOGGING SYSTEMS LOGGER's note was reviewed and I agree with the note.
Comment:
Mr. Shree Thomas is a 80 yo man with hx myasthenia gravis, HTN, HLD, IDDM, CAD s/p CABG, atrial flutter on Eliquis, TIA/CVA, hypothyroidism, recent admission 04/20-05/01 for myasthenia gravis flare (s/p IV corticosteroids and plasmapheresis) presents
to the ER with increasing lower extremity swelling. No chest pain. He feels more short of breath when climbing stairs.
Triage VS: T 97.9, P 84, RR 22, BP 136/68, SpO2 91%
On exam patient is AAO X 3, conversant. + JVP at 90 degrees. CV: S1, S2, RRR; Chest clear; LE with 2+ pitting edema b/l and weeping fluid blisters.
LABS: WBC 8, Hg 13.4, PLT 144, Na 136, K+ 4.2, CO2 35, BUN 29, Cr 0.9, Glucose 164, Mag 2.1, T. Bili 1.0, AST 37, ALT 51, BNP 376, Trop 0.022
CXR
IMPRESSION:
No acute cardiopulmonary abnormality.
Chronic elevation of the right hemidiaphragm.
MAR: Lasix 80mg IV x 1
Heart Failure preserved EF, Acute Exacerbation
-TTE 11/28/24 with EF 56%; trace MR
-etiology is likely secondary to med non-compliance as patient admits to missing several doses of Lasix throughout the week.
-continue Lasix 80mg IV BID
-strict I/O, daily weights - weight is up nearly 10 kg from last admission
-I have updated [facility] on admission, team to reach out if formal consulted needed and for follow up appt
Essential HTN
-CHILD PROTECTIVE INVESTIGATOR Amlodipine 2.5mg PO QD
Hyperlipidemia
-CHILD PROTECTIVE INVESTIGATOR Lipitor 80mg qhs
Atrial Flutter
-CHILD PROTECTIVE INVESTIGATOR Eliquis/ Metoprolol
Myasthenia Gravis
-CHILD PROTECTIVE INVESTIGATOR Prednisone, Pyridostigmine
CAD with hx CABG
Hx TIA/CVA
-CHILD PROTECTIVE INVESTIGATOR Eliquis/Statin
Hypothyroidism
-CHILD PROTECTIVE INVESTIGATOR Synthroid
DVT PPx Eliquis
FULL CODE
--- NOTE | 2025-06-10 14:33 | EDCM ---
CM reviewed chart and met with pt bedside in ED. Pt lives alone in 2 story home, 1 [address] from garage to kitchen, has first floor half bath, full flight of steps to second floor bedroom and full bath, he has been sleeping in his recliner on the first
floor.
Independent in ADLs, personal care and ambulation at baseline. Uses cane when climbing stairs, uses walker to help stand from chair and for ambulating longer distances. In addition, pt had glucometer and insulin pump.
Son lives locally and assists with shopping and laundry.
Confirms prescription coverage.
Hx VN years ago, no hx SNF.
Pt is concerned he has not recelty had his Myasthenia Gravis meds, is followed by Dr Blue.
PCP: Gary Norton
Pharmacy: [facility]
Anticipate discharge home, CM will continue to follow for all discharge planning needs.
[2025-06-10 17:31] LABS: Glucose - Point of Care 111 mg/dl (70-99)
[2025-06-10] MEDS: MESTINON 60 MG PO (17:49)
[2025-06-10] MEDS: PT'S OWN INSULIN PUMP - NovoLOG 5.5 UNIT SC (17:49)
--- NOTE | 2025-06-10 17:52 | PTCARENOTE ---
pt new admission from ED. pt is AAO*3, Vss, room air. pt denies any pain. pt with external male catheter in place. pt requested to keep in place for the night. pt denies any pain or discomfort. legs elevated with pillows. pt oriented to the room.
call meza within the reach. plan of care ongoing.
[2025-06-10] MEDS: ELIQUIS 5 MG PO (19:38)
[2025-06-10 21:12] LABS: Glucose - Point of Care 152 mg/dl (70-99)
[2025-06-10] MEDS: PT'S OWN INSULIN PUMP - NovoLOG SC (22:21)
[2025-06-11] VITALS (7 sets, daily range): BP systolic 112–138; BP diastolic 60–71; PULSE 85; O2SAT 97; BMI 29.3
[2025-06-11] MEDS: SYNTHROID 125 MCG PO (05:22)
[2025-06-11 07:41] LABS: Glucose - Point of Care 56 mg/dl (70-99)
[2025-06-11 07:41] LABS: Glucose - Point of Care 59 mg/dl (70-99)
[2025-06-11 08:03] LABS: Glucose - Point of Care 85 mg/dl (70-99)
[2025-06-11 08:16] LABS: Hematocrit 47.7 % (39.0-52.0); Hemoglobin 15.2 g/dL (13.0-18.0); Mean Corp Hgb Conc. 31.9 g/dL (33.0-37.0); Mean Corpuscular Volume 97.7 fL (80.0-94.0); Platelet Count 154 10^3/uL (130-400); Red Cell Dist. Width 17.5 % (11.5-14.5)
[2025-06-11] MEDS: PT'S OWN INSULIN PUMP - NovoLOG 3.8 UNIT SC (08:21)
[2025-06-11] MEDS: DELTASONE 30 MG PO (08:23)
[2025-06-11] MEDS: NORVASC 2.5 MG PO (08:23)
[2025-06-11] MEDS: PROTONIX 40 MG PO (08:23)
[2025-06-11] MEDS: ZITHROMAX 500 MG PO (08:23)
[2025-06-11] MEDS: ZESTRIL 40 MG PO (08:23)
[2025-06-11] MEDS: LIPITOR 80 MG PO (08:23)
[2025-06-11] MEDS: ELIQUIS 5 MG PO ×2 (08:23→20:19)
[2025-06-11] MEDS: TOPROL XL 50 MG PO (08:25)
--- NOTE | 2025-06-11 09:13 | W.PN.HOSP.TC ---
Today's Communication/Plan
-
see bold
Assessment / Plan
Assessment / Plan
HPI: 80 y/o male past medical history of CAD, CHF, Atrial flutter, IDDM, and myasthenia gravis who presents with increased lower extremity edema. Patient reports his has been experiencing increased lower extremity edema over the past week, but
notes over the last few days it has been getting worse and now notes his pant legs have been damp due to the fluid leaking from the legs. Patient reports associated weight gain of about 12lbs. He also noted increasnig dyspnea on exertion. He
reports needs to take each step individually and stops on most steps due to shortness of breath. He reports he does not always take his Lasix as prescribed, noting he frequently misses doses. He denies fevers, sweats or chills.
Assessment/plan:
Acute on Chronic HFpEF, likely related to missed Lasix doses
-Reviewed with patient importance of not missing doses at home
-Continue Lasix 80mg IV BID
-Trend creatinine, trend daily weights
Coronary Artery Disease s/p CABG
-Stable
Paroxysmal Atrial Fibrillation / Atrial Flutter
-Continue Eliquis
-Continue metoprolol
Essential Hypertension
-Continue amlodipine, lisinopril and metoprolol
Hyperlipidemia
-Continue atorvastatin
Insulin-Dependent Diabetes Mellitus
-hgbA1c 7.1 in Apr 2025
-Continue insulin pump
Hypothyroidism
-Continue levothyroxine
Myasthenia Gravis
-Continue prednisone and pyridostigmine
-Patient maintained on Soliris as outpatient - Continue azithromycin for prophylaxis
-PT
Hx Sick Sinus Syndrome s/p Pacemaker
DVT proph: Eliquis
Code Status: Full Code
Total time spent to see the patient on the floor, examine the patient, review data and lab results, discuss treatment plan with patient, nursing staff around 38 minutes.
Physical Exam
General: No acute distress
HEENT: Normocephalic, Atraumatic, EOMI, MMM
Respiratory: Clear to Auscultation bilaterally
Cardiac: Normal S1/S2, Regular Rate and Rhythm
GI: Soft, Nontender, Nondistended, Normal Bowel Sounds
Extremities:
Bilateral lower extremity edema, with serosanguineous drainage on the left lower extremity
Neuro: Nonfocal/Grossly Intact
Anticipated Discharge: 24 - 48 hours
Subjective/Interval History
-
Date of Service: June 11, 2025
Patient reports dyspnea with activity, no shortness of breath at rest. He has bilateral lower extremity edema. Denies chest pain. No fever, no vomiting
Objective Data
-
Labs:
Laboratory Results
06/11/25
07:59
WBC 9.0
Hgb 15.2
Hct 47.7
Plt Count 154
Sodium Pending
Potassium Pending
Chloride Pending
Carbon Dioxide Pending
BUN Pending
Creatinine Pending
Glucose Pending
Calcium Pending
Vital Signs:
Vital Signs
Temp Pulse Resp BP Pulse Ox
98 F 73 18 136/71 98
06/11/25 08:22 06/11/25 08:23 06/11/25 08:22 06/11/25 08:23 06/11/25 08:22
I&O
06/10/25 06/11/25 06/12/25
06:59 06:59 06:59
Intake Total 480 / 480 240 / 240
Output Total 425 / 425
Balance 55 / 55 240 / 240
[2025-06-11] MEDS: MESTINON 60 MG PO ×3 (09:45→17:26)
[2025-06-11 11:29] LABS: Glucose - Point of Care 94 mg/dl (70-99)
--- NOTE | 2025-06-11 11:38 | CM ---
Addendum entered by Umm Zhang 06/11/25 12:49:
Update Plan: will follow for VN needs at discharge
Original Note:
Reviewed chart. Met with pt bedside. On room air. On IV lasix and monitoring labs.IMM given.
Plan: Home no needs
[2025-06-11 11:47] LABS: Blood Urea Nitrogen 29 mg/dl (9-20); Calcium 8.3 mg/dl (8.4-10.2); Carbon Dioxide 33 mmol/L (22-30); Chloride 101 mmol/L (98-107); Estimated Creatinine Clearance 63 ml/min; Glucose 84 mg/dl (70-99); Magnesium 2.2 mg/dl (1.6-2.3); Potassium 4.6 mmol/L (3.5-5.1); Sodium 136 mmol/L (135-145); eGFR > 60.00
[2025-06-11] MEDS: LASIX 80 MG IV ×2 (11:50→17:24)
[2025-06-11] MEDS: PT'S OWN INSULIN PUMP - NovoLOG 3.4 UNIT SC (11:56)
--- NOTE | 2025-06-11 12:46 | PN.DE.MGMTRT ---
Insulin Management
- -
06/11/2025 Diabetes Management Consult
Patient admitted 06/10 with breathing problem, lower extremity swelling - acute on chronic HFpEF. PMH CAD/ CABG, HTN, HLD, diabetes, chf, myasthenia gravis, afib with pacemaker. Prior to admission was using the medtronic insulin pump, with novolog
and Quick set with Guardian sensor. A1C 04/21/2025 7.1%, cr .9, eGFR > 60.
Patient is awake alert and oriented resting in bed. States the past week he has been woken up with low blood sugar at 3AM. Discussed the best course of action would be to reduce 12AM basal rates. Pump has been maintained, glucose yesterday 111 to
152. Fasting glucose today 56. 12AM basal rate reduced to .25 to .2. Pump setting as follows:
12AM .2
4AM .25
6AM .55
8AM .6
12pm .66
4pm .4
24 hours basal total 10.2 units.
I:CHO ratio 1:12, Sensitivity 1:40, active insulin 2 hours.
Will continue insulin pump.
Discussed with nurse
Will follow.
Diabetes History
- -
Type of Diabetes: 2 requiring insulin
Pre-Admission Diabetes Regimen
06/11/25 06/11/25
07:59 10:07
Creatinine Cancelled 0.9
Insulin Pump Settings
IP Diabetes Regimen
06/10/25 06/10/25 06/11/25
17:29 21:10 07:38
Glucose
POC Glucose 111 H 152 H 59 L
06/11/25 06/11/25 06/11/25
07:39 07:59 08:01
Glucose Cancelled
POC Glucose 56 L 85
06/11/25 06/11/25
10:07 11:28
Glucose 84
POC Glucose 94
Meal type: Breakfast
Meal type: Dinner
Amount consumed: 100%
Amount consumed: 100%
Patient Education
--- NOTE | 2025-06-11 13:41 | WOUNDNOTE ---
[facility] RN note: Patient admitted with CHF. Patient lives alone. Son lives close by.
See H&P for complete history.
PMH: CAD, on Eliquis, CHF, IDDM, Myasthenia Gravis (prednisone), CABG, SSS, pacer, HTN, appendectomy, hernia repair, R TKR.
Wound Location and type/assessment: Patient admitted with: RLE dermal small ulcer and several dermal ulcers LLE r/t LE venous edema. +LE edema (R slightly more then L), +Pedal pulses. Coccyx crease discolored conrad/white suspect r/t moisture.
Patient sleeps in his recliner chair at home. Lower back scabbed areas from previous heating pad use. Patient stated he has compression stockings but he cannot put them on himself.
Appetite: good.
Pressure redistribution devices in place: [employer] Accumax. Air chair cushion. Patient stands independently.
Plan: Dressings applied Le's.
Will confirm orders with Dr. Victoria.
Care plan to be updated and will follow as needed.
Note to case management requested for discharge: VN services. Instructed patient to ask for VN and to follow up at [facility].
Recommend follow up at wound care center upon discharge.
[2025-06-11] MEDS: TYLENOL 650 MG PO (13:49)
--- NOTE | 2025-06-11 14:10 | WOUNDNOTE ---
W[facility] RN note: Dr. Victoria approved local skin/wound care and bilateral knee high Navi wrap (re-wrap daily). Knee high Navi wraps applied. Updated ABDI Jones and suggested obtaining a recliner chair for patient if available to help elevate le's d/t LE edema.
[2025-06-11 16:37] LABS: Glucose - Point of Care 108 mg/dl (70-99)
[2025-06-11] MEDS: PT'S OWN INSULIN PUMP - NovoLOG 5.1 UNIT SC ×2 (17:25→20:32)
[2025-06-11] MEDS: DESENEX/MITRAZOL/ZEASORB 1 APPLIC TOPICAL (20:31)
[2025-06-11 21:22] LABS: Glucose - Point of Care 177 mg/dl (70-99)
[2025-06-12] VITALS (7 sets, daily range): BP systolic 102–142; BP diastolic 53–69; PULSE 73; O2SAT 95; BMI 29.2
[2025-06-12 02:58] LABS: Glucose - Point of Care 109 mg/dl (70-99)
--- NOTE | 2025-06-12 03:30 | GLUCOSE ---
SITUATION:
0300 glucose was 109
BACKGROUND:
ASSESSMENT:
RECOMMENDATION:
[2025-06-12] MEDS: SYNTHROID 125 MCG PO (05:22)
[2025-06-12 07:18] LABS: Blood Urea Nitrogen 32 mg/dl (9-20); Calcium 8.2 mg/dl (8.4-10.2); Carbon Dioxide 34 mmol/L (22-30); Chloride 100 mmol/L (98-107); Estimated Creatinine Clearance 57 ml/min; Glucose 82 mg/dl (70-99); Potassium 4.3 mmol/L (3.5-5.1); Sodium 135 mmol/L (135-145); eGFR > 60.00
--- NOTE | 2025-06-12 07:19 | PN.DE.MGMTRT ---
Insulin Management
- -
06/12/2025: Diabetes Management Follow up
Patient admitted 06/10 with breathing problem, lower extremity swelling - acute on chronic HFpEF. PMH CAD/ CABG, HTN, HLD, diabetes, CHF, Myasthenia gravis, A-Fib with pacemaker. Prior to admission was using the Medtronic insulin pump, with
NovoLog and Quick set with Guardian sensor.
Patient states the past week he has been woken up with low blood sugar at 3AM. Discussed the best course of action would be to reduce 12AM basal rates. A1C 04/21/2025 7.1%, Cr 0.9, eGFR > 60.
Patient is awake alert and oriented sitting up in bed, able to discuss diabetes care plan.
Basal rate was reduced from 0.25 to 0.2. yesterday. Glucose stable w/o hypoglycemia.
Pump has been managed independently by patient
Glucose yesterday 82 to 108. HS glucose was 177 and 109 @ 3AM, Fasting 82V, 77 POC today 56.
Current Pump settings as follows:
12AM 0.2
4AM 0.25
6AM 0.55
8AM 0.6
12pm 0.66
4pm 0.4
24 hours basal total 10.2 units.
I:CHO ratio 1:12, Sensitivity 1:40, active insulin 2 hours.
Will make no changes to current pump setting, continue insulin pump.
Discussed with nurse. Will cont to follow.
Diabetes History
- -
Type of Diabetes: 1
Pre-Admission Diabetes Regimen
06/11/25 06/11/25 06/12/25
07:59 10:07 06:33
Creatinine Cancelled 0.9 1.0
Insulin Pump Settings
IP Diabetes Regimen
06/11/25 06/11/25 06/11/25
07:38 07:39 07:59
Glucose Cancelled
POC Glucose 59 L 56 L
1006/11/25 06/11/25
08:01 10:07 11:28
Glucose 84
POC Glucose 85 94
06/11/25 06/11/25 06/12/25
16:36 21:20 02:56
Glucose
POC Glucose 108 H 177 H 109 H
06/12/25
06:33
Glucose 82
POC Glucose
Meal type: Dinner
Meal type: Lunch
Meal type: Breakfast
Amount consumed: 100%
Amount consumed: 100%
Amount consumed: 100%
Patient Education
[2025-06-12 07:27] LABS: Glucose - Point of Care 77 mg/dl (70-99)
[2025-06-12] MEDS: PT'S OWN INSULIN PUMP - NovoLOG 4.8 UNIT SC ×3 (08:59→17:12)
[2025-06-12] MEDS: DELTASONE 30 MG PO (09:02)
[2025-06-12] MEDS: ELIQUIS 5 MG PO ×2 (09:03→20:22)
[2025-06-12] MEDS: DESENEX/MITRAZOL/ZEASORB 1 APPLIC TOPICAL ×2 (09:03→20:23)
[2025-06-12] MEDS: LASIX IV (09:03)
[2025-06-12] MEDS: LIPITOR 80 MG PO (09:04)
[2025-06-12] MEDS: TOPROL XL 50 MG PO (09:05)
[2025-06-12] MEDS: ZESTRIL 40 MG PO (09:05)
[2025-06-12] MEDS: PROTONIX 40 MG PO (09:05)
[2025-06-12] MEDS: ZITHROMAX 500 MG PO (09:05)
[2025-06-12] MEDS: MESTINON 60 MG PO ×3 (09:05→17:12)
[2025-06-12] MEDS: NORVASC 2.5 MG PO (09:05)
--- NOTE | 2025-06-12 09:05 | W.PN.HOSP.TC ---
Today's Communication/Plan
-
see bold
Assessment / Plan
Assessment / Plan
HPI: 80 y/o male past medical history of CAD, CHF, Atrial flutter, IDDM, and myasthenia gravis who presents with increased lower extremity edema. Patient reports his has been experiencing increased lower extremity edema over the past week, but
notes over the last few days it has been getting worse and now notes his pant legs have been damp due to the fluid leaking from the legs. Patient reports associated weight gain of about 12lbs. He also noted increasnig dyspnea on exertion. He
reports needs to take each step individually and stops on most steps due to shortness of breath. He reports he does not always take his Lasix as prescribed, noting he frequently misses doses. He denies fevers, sweats or chills.
Assessment/plan:
Acute on Chronic HFpEF, likely related to missed Lasix doses
-Reviewed with patient importance of not missing doses at home
-Continue Lasix 80mg IV BID, start fluid restriction, consider metolazone if needed
-Trend creatinine, trend daily weights
-PT rec HH
Coronary Artery Disease s/p CABG
-Stable
Paroxysmal Atrial Fibrillation / Atrial Flutter
-Continue Eliquis
-Continue metoprolol
Essential Hypertension
-Continue amlodipine, lisinopril and metoprolol
Hyperlipidemia
-Continue atorvastatin
Insulin-Dependent Diabetes Mellitus
-hgbA1c 7.1 in Apr 2025
-Continue insulin pump
Hypothyroidism
-Continue levothyroxine
Myasthenia Gravis
-Continue prednisone and pyridostigmine
-Patient maintained on Soliris as outpatient - Continue azithromycin for prophylaxis
-PT
Hx Sick Sinus Syndrome s/p Pacemaker
DVT proph: Eliquis
Code Status: Full Code
Total time spent to see the patient on the floor, examine the patient, review data and lab results, discuss treatment plan with patient, nursing staff around 37 minutes.
Physical Exam
General: No acute distress
HEENT: Normocephalic, Atraumatic, EOMI, MMM
Respiratory: Clear to Auscultation bilaterally
Cardiac: Normal S1/S2, Regular Rate and Rhythm
GI: Soft, Nontender, Nondistended, Normal Bowel Sounds
Extremities:
Bilateral lower extremity edema, with serosanguineous drainage on the left lower extremity
Neuro: Nonfocal/Grossly Intact
Anticipated Discharge: 24 - 48 hours
Subjective/Interval History
-
Date of Service: June 12, 2025
Patient denies shortness of breath at rest. He has shortness of breath with climbing stairs. Denies chest pain. No fever, no vomiting.
Objective Data
-
Labs:
Laboratory Results
06/12/25
06:33
Sodium 135
Potassium 4.3
Chloride 100
Carbon Dioxide 34 H
BUN 32 H
Creatinine 1.0
Glucose 82
Calcium 8.2 L
Vital Signs:
Vital Signs
Temp Pulse Resp BP Pulse Ox
97.8 F 70 18 142/62 95
06/12/25 07:16 06/12/25 07:16 06/12/25 07:16 06/12/25 07:16 06/12/25 07:16
I&O
06/11/25 06/12/25 06/13/25
06:59 06:59 06:59
Intake Total 480 / 480 1920 / 1920
Output Total 425 / 425 2675 / 2675
Balance 55 / 55 -755 / -755
--- NOTE | 2025-06-12 10:29 | CM ---
Pt is on Room air.Continues with IV Lasix..
Plan: Home no needs
[2025-06-12] MEDS: LASIX 80 MG IV ×2 (10:59→17:11)
[2025-06-12 11:55] LABS: Glucose - Point of Care 116 mg/dl (70-99)
[2025-06-12 16:51] LABS: Glucose - Point of Care 165 mg/dl (70-99)
[2025-06-12 21:53] LABS: Glucose - Point of Care 58 mg/dl (70-99)
[2025-06-12 22:22] LABS: Glucose - Point of Care 88 mg/dl (70-99)
[2025-06-12] MEDS: PT'S OWN INSULIN PUMP - NovoLOG SC (23:26)
[2025-06-13] VITALS (8 sets, daily range): BP systolic 75–130; BP diastolic 42–66; BMI 29.1
[2025-06-13 03:10] LABS: Glucose - Point of Care 56 mg/dl (70-99)
[2025-06-13 03:28] LABS: Glucose - Point of Care 57 mg/dl (70-99)
[2025-06-13 03:50] LABS: Glucose - Point of Care 86 mg/dl (70-99)
[2025-06-13 05:55] LABS: Glucose - Point of Care 220 mg/dl (70-99)
[2025-06-13] MEDS: SYNTHROID 125 MCG PO (05:55)
[2025-06-13 07:45] LABS: Glucose - Point of Care 138 mg/dl (70-99)
--- NOTE | 2025-06-13 07:46 | W.PN.HOSP.TC ---
Today's Communication/Plan
-
Add metolazone
Hopeful for discharge tomorrow
Assessment / Plan
Assessment / Plan
HPI: 80 y/o male past medical history of CAD, CHF, Atrial flutter, IDDM, and myasthenia gravis who presents with increased lower extremity edema. Patient reports his has been experiencing increased lower extremity edema over the past week, but
notes over the last few days it has been getting worse and now notes his pant legs have been damp due to the fluid leaking from the legs. Patient reports associated weight gain of about 12lbs. He also noted increasnig dyspnea on exertion. He
reports needs to take each step individually and stops on most steps due to shortness of breath. He reports he does not always take his Lasix as prescribed, noting he frequently misses doses. He denies fevers, sweats or chills.
Assessment/plan:
Acute on Chronic HFpEF, likely related to missed Lasix doses
-Reviewed with patient importance of not missing doses at home
-Continue Lasix 80mg IV BID, add metolazone 5 mg 30 minutes prior to Lasix, continue fluid restriction
-Trend creatinine, trend daily weights
-PT rec HH
Coronary Artery Disease s/p CABG
-Stable
Paroxysmal Atrial Fibrillation / Atrial Flutter
-Continue Eliquis
-Continue metoprolol
Essential Hypertension
-Continue amlodipine, lisinopril and metoprolol
Hyperlipidemia
-Continue atorvastatin
Insulin-Dependent Diabetes Mellitus
-hgbA1c 7.1 in Apr 2025
-Continue insulin pump
Hypothyroidism
-Continue levothyroxine
Myasthenia Gravis
-Continue prednisone and pyridostigmine
-Patient maintained on Soliris as outpatient - Continue azithromycin for prophylaxis
-PT
Hx Sick Sinus Syndrome s/p Pacemaker
DVT proph: Eliquis
Code Status: Full Code
Total time spent to see the patient on the floor, examine the patient, review data and lab results, discuss treatment plan with patient, nursing staff around 39 minutes.
Physical Exam
General: No acute distress
HEENT: Normocephalic, Atraumatic, EOMI, MMM
Respiratory: Clear to Auscultation bilaterally
Cardiac: Normal S1/S2, Regular Rate and Rhythm
GI: Soft, Nontender, Nondistended, Normal Bowel Sounds
Extremities:
Bilateral lower extremity edema, with serosanguineous drainage on the left lower extremity
Neuro: Nonfocal/Grossly Intact
Anticipated Discharge: Within 24 hours
Subjective/Interval History
-
Date of Service: June 13, 2025
Patient's dyspnea with activity has resolved. Denies shortness of breath at rest. No chest pain. No fever, no vomiting.
Objective Data
-
Labs:
Laboratory Results
06/13/25
07:17
Sodium Pending
Potassium Pending
Chloride Pending
Carbon Dioxide Pending
BUN Pending
Creatinine Pending
Glucose Pending
Calcium Pending
Vital Signs:
Vital Signs
Temp Pulse Resp BP Pulse Ox
97.5 F 71 18 130/60 96
06/13/25 03:40 06/13/25 03:40 06/13/25 03:40 06/13/25 03:40 06/13/25 03:40
I&O
06/12/25 06/13/25 06/14/25
06:59 06:59 06:59
Intake Total 1920 / 1920 1670 / 1670
Output Total 2675 / 5 1999
Balance -755 / -755 -330 / -330
[2025-06-13 08:03] LABS: Blood Urea Nitrogen 42 mg/dl (9-20); Calcium 8.2 mg/dl (8.4-10.2); Carbon Dioxide 34 mmol/L (22-30); Chloride 99 mmol/L (98-107); Estimated Creatinine Clearance 52 ml/min; Glucose 115 mg/dl (70-99); Potassium 4.3 mmol/L (3.5-5.1); Sodium 132 mmol/L (135-145); eGFR > 60.00
[2025-06-13] MEDS: ZAROXOLYN 5 MG PO (08:18)
[2025-06-13] MEDS: TOPROL XL 50 MG PO (08:19)
[2025-06-13] MEDS: ZITHROMAX 500 MG PO (08:20)
[2025-06-13] MEDS: ZESTRIL 40 MG PO (08:20)
[2025-06-13] MEDS: LIPITOR 80 MG PO (08:20)
[2025-06-13] MEDS: ELIQUIS 5 MG PO ×2 (08:20→20:41)
[2025-06-13] MEDS: NORVASC 2.5 MG PO (08:21)
[2025-06-13] MEDS: PROTONIX 40 MG PO (08:21)
[2025-06-13] MEDS: MESTINON 60 MG PO ×3 (08:22→16:40)
[2025-06-13] MEDS: DELTASONE 30 MG PO (08:22)
[2025-06-13] MEDS: DESENEX/MITRAZOL/ZEASORB 1 APPLIC TOPICAL ×2 (08:23→20:42)
[2025-06-13] MEDS: PT'S OWN INSULIN PUMP - NovoLOG 4.3 UNIT SC (08:25)
[2025-06-13] MEDS: TYLENOL 650 MG PO (08:34)
[2025-06-13] MEDS: LASIX 80 MG IV (09:30)
[2025-06-13 11:35] LABS: Glucose - Point of Care 47 mg/dl (70-99)
[2025-06-13] MEDS: PT'S OWN INSULIN PUMP - NovoLOG SC ×2 (11:52→22:55)
[2025-06-13 12:02] LABS: Glucose - Point of Care 75 mg/dl (70-99)
[2025-06-13] MEDS: KCL 20 MEQ PO (12:51)
[2025-06-13 14:06] LABS: Glucose - Point of Care 110 mg/dl (70-99)
[2025-06-13] MEDS: LASIX IV (15:28)
[2025-06-13 16:03] LABS: Glucose - Point of Care 150 mg/dl (70-99)
[2025-06-13] MEDS: PT'S OWN INSULIN PUMP - NovoLOG 4.6 UNIT SC (16:40)
[2025-06-13 21:54] LABS: Glucose - Point of Care 64 mg/dl (70-99)
[2025-06-13 22:12] LABS: Glucose - Point of Care 74 mg/dl (70-99)
[2025-06-14 00:26] LABS: Glucose - Point of Care 130 mg/dl (70-99)
[2025-06-14 02:44] LABS: Glucose - Point of Care 85 mg/dl (70-99)
[2025-06-14 03:24] VITALS: BP 116/62
[2025-06-14] MEDS: SYNTHROID 125 MCG PO (05:05)
[2025-06-14 06:00] VITALS: BMI 29.1
[2025-06-14 07:33] LABS: Glucose - Point of Care 82 mg/dl (70-99)
[2025-06-14 07:49] VITALS: BP 106/54
[2025-06-14] MEDS: PT'S OWN INSULIN PUMP - NovoLOG 4.8 UNIT SC (08:08)
[2025-06-14] MEDS: NORVASC PO (08:10)
[2025-06-14] MEDS: DELTASONE 30 MG PO (08:11)
[2025-06-14] MEDS: ELIQUIS 5 MG PO ×2 (08:12→20:11)
[2025-06-14] MEDS: LIPITOR 80 MG PO (08:13)
[2025-06-14] MEDS: ZITHROMAX 500 MG PO (08:13)
[2025-06-14] MEDS: TOPROL XL 50 MG PO (08:13)
[2025-06-14] MEDS: PROTONIX 40 MG PO (08:13)
[2025-06-14] MEDS: DESENEX/MITRAZOL/ZEASORB 1 APPLIC TOPICAL ×2 (08:13→20:12)
[2025-06-14] MEDS: LASIX IV (08:16)
[2025-06-14] MEDS: MESTINON 60 MG PO ×3 (08:19→17:38)
[2025-06-14] MEDS: ZAROXOLYN 5 MG PO (10:45)
[2025-06-14 11:08] LABS: Glucose - Point of Care 158 mg/dl (70-99)
[2025-06-14] MEDS: LASIX 80 MG IV (11:32)
--- NOTE | 2025-06-14 11:35 | W.PN.HOSP.TC ---
Today's Communication/Plan
-
see bold
Assessment / Plan
Assessment / Plan
HPI: 80 y/o male past medical history of CAD, CHF, Atrial flutter, IDDM, and myasthenia gravis who presents with increased lower extremity edema. Patient reports his has been experiencing increased lower extremity edema over the past week, but
notes over the last few days it has been getting worse and now notes his pant legs have been damp due to the fluid leaking from the legs. Patient reports associated weight gain of about 12lbs. He also noted increasnig dyspnea on exertion. He
reports needs to take each step individually and stops on most steps due to shortness of breath. He reports he does not always take his Lasix as prescribed, noting he frequently misses doses. He denies fevers, sweats or chills.
Assessment/plan:
Acute on Chronic HFpEF, likely related to missed Lasix doses
-Reviewed with patient importance of not missing doses at home
-Weight was not changing on lasix 80 mg IV BID, metolazone 5 mg added 06/13
-Hold lasix & metolazine due to OMAR, consult cardiology (pt follows w/ Dr. Wagner)
-Continue fluid restriction, trend creatinine, trend daily weights
Acute kidney injury
- In the setting of diuresis, hypotension, while receiving lisinopril
- Hold diuretics, hold lisinopril, trend creatinine, trend daily weights
- Consider nephrology consult if creatinine worsens
Hypotension
- Hold amlodipine, hold lisinopril
- Midodrine prn
Coronary Artery Disease s/p CABG
-Stable
Paroxysmal Atrial Fibrillation / Atrial Flutter
-Continue Eliquis
-Continue metoprolol
Essential Hypertension
-Hold amlodipine, lisinopril
Hyperlipidemia
-Continue atorvastatin
Insulin-Dependent Diabetes Mellitus
-hgbA1c 7.1 in Apr 2025
-Continue insulin pump, diabetes nurse practitioner following
Hypothyroidism
-Continue levothyroxine
Myasthenia Gravis
-Continue prednisone and pyridostigmine
-Patient maintained on Soliris as outpatient - Continue azithromycin for prophylaxis
-Patient has a plasmapheresis appointment on 06/16
-PT - rec HH
Hx Sick Sinus Syndrome s/p Pacemaker
DVT proph: Eliquis
Code Status: Full Code
Dispo - PT rec HH
Total time spent to see the patient on the floor, examine the patient, review data and lab results, discuss treatment plan with patient, nursing staff around 50 minutes.
Physical Exam
General: No acute distress
HEENT: Normocephalic, Atraumatic, EOMI, MMM
Respiratory: Clear to Auscultation bilaterally
Cardiac: Normal S1/S2, Regular Rate and Rhythm
GI: Soft, Nontender, Nondistended, Normal Bowel Sounds
Extremities:
Bilateral lower extremity edema, with serosanguineous drainage on the left lower extremity
Neuro: Nonfocal/Grossly Intact
Anticipated Discharge: Within 24 hours
Subjective/Interval History
-
Date of Service: June 14, 2025
Patient's dyspnea with activity has resolved. His blood pressure was low yesterday, denies dizziness or lightheadedness. Denies chest pain, denies shortness of breath.
Objective Data
-
Labs:
Laboratory Results
06/14/25
06:00
Sodium Pending
Potassium Pending
Chloride Pending
Carbon Dioxide Pending
BUN Pending
Creatinine Pending
Glucose Pending
Calcium Pending
Vital Signs:
Vital Signs
Temp Pulse Resp BP Pulse Ox
98.8 F 71 18 106/54 99
06/14/25 07:49 06/14/25 07:49 06/14/25 07:49 06/14/25 07:49 06/14/25 07:49
I&O
1006/14/25 06/15/25
06:59 06:59 06:59
Intake Total 1670 / 1670 1076 / 1076
Output Total 1999 1350 / 1350
Balance -330 / -330 -274 / -274
[2025-06-14 11:44] VITALS: BP 122/54
--- NOTE | 2025-06-14 11:48 | CON.CAR ---
Consultation
Consultation Request
Date/Time Consultation Requested: 06/14/2025 10: 30
Date/Time Consultation Performed: 06/14/2025 11: 00
Requesting Provider: Star
Performing Provider: Gurjit
Reason for Consultation: chf
Medical History
-
Chief Complaint: dysphagia
History of Present Illness:
Miguel Ángel has a h/o SSS s/p Medtronic PPM 2010, CAD s/p CABG in 2016, brief post op afib, prior ischemic CM with recovery in EF, chronic HFpEF, HTN, HLD, IDDM type 1, Myasthenia gravis, hypothyroidism, history of TIA/CVA who presented with dysphagia. It
is listed in our prior notes that he had been seen by [facility] with possible esophageal stricture however timeline unclear. He is admitted with acute diastolic CHF due to noncompliance with Lasix.
PMH:
CAD status post CABG in 2016
Brief postop A-fib
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
Chronic heart failure preserved EF
Sick sinus syndrome status post Medtronic pacemaker 2010
Hypertension
Hyperlipidemia
Type 1 diabetes, insulin-dependent
Hypothyroidism
Myasthenia gravis
History of TIA/CVA
Chronic venous insufficiency
Possible prior esophageal stricture treated at [facility]
Past Medical History
Past Medical History: Other (in HPI)
Social History
Tobacco: Former Smoker
Alcohol: None
Living: Alone
Employment: Retired
Allergies / Home Medications
Allergy/AdvReac Type Severity Reaction Status Date / Time
efgartigimod mary-fcab (From Allergy Rash Verified 04/20/25 08:37
Vyvgart)
�Medication �Instructions �Recorded �Confirmed �Type
atorvastatin 80 mg tablet 80 mg PO DAILY High cholesterol 04/28/15 06/10/25 History
metoprolol succinate 50 mg 50 mg PO DAILY Blood Pressure 12/06/23 06/10/25 History
tablet,extended release 24 hr
pyridostigmine bromide 60 mg tablet 60 mg PO TID@, myasthenia 12/06/23 06/10/25 History
gravis
insulin aspart U-100 100 unit/mL 1 sliding scale dose SC .VIA PUMP 02/10/24 06/10/25 History
subcutaneous solution (Novolog Diabetes ##0
U-100 Insulin aspart)
amlodipine 2.5 mg tablet 2.5 mg PO DAILY Blood Pressure 04/20/25 06/10/25 History
apixaban 5 mg tablet (Eliquis) 5 mg PO BID Blood Clot 04/20/25 06/10/25 History
Held on 05/01/25. Prevention/Tx
Instructions: Resume on
05/04/25.
furosemide 20 mg tablet 40 mg PO DAILY@17 Fluid 04/20/25 06/10/25 History
Held on 05/01/25. Retention/Swelling
Instructions: Resume on
05/04/25.
furosemide 20 mg tablet 80 mg PO DAILY@08 Fluid 04/20/25 06/10/25 History
Held on 05/01/25. Retention/Swelling
Instructions: Resume on
05/04/25.
levothyroxine 125 mcg tablet 125 mcg PO DAILY@06 Thyroid 04/20/25 06/10/25 History
lisinopril 40 mg tablet 40 mg PO DAILY Blood Pressure 04/20/25 06/10/25 History
Held on 05/01/25.
Instructions: Resume on
05/04/25.
azithromycin 500 mg tablet 500 mg PO DAILY Infection 06/10/25 06/10/25 History
prednisone 20 mg tablet 30 mg PO DAILY Anti-Inflammatory 06/10/25 06/10/25 History
Review of Systems
-
History Source: Patient
All other systems: Negative unless noted
Constitutional: Weight Gain
EENT: No Symptoms
Respiratory: Trouble Breathing
Cardiac: No Symptoms
Abdomen/GI: No Symptoms
: No Symptoms
Musculoskeletal: Edema
Skin: No Symptoms
Neurological: No Symptoms
Endocrine: No Symptoms
Hematologic/Lymphatic: No Symptoms
Physical Exam
Vital Signs
Temp Pulse Resp BP Pulse Ox
98.6 F 71 17 122/54 95
06/14/25 11:44 06/14/25 11:44 06/14/25 11:44 06/14/25 11:44 06/14/25 11:44
General: Well developed, well nourished in NAD.
Neck: Supple, no JVD, HJR, carotids +2 B/L, no bruits bilaterally.
Heart: Non displaced PMI, RRR, no murmurs, No S3, S4, no rubs.
Lungs: Scattered rhonchi
Abdomen: Normal bowel sounds, soft, non-tender, non-distended.
Extremities: No clubbing, cyanosis or edema bilaterally.
Neuro: Grossly nonfocal, awake, alert and oriented x3.
Lab Results
06/11/25 07:59
Troponin I 0.022 ng/ml 06/10/25 11:41
Edf-D-Bfjgddjpjrx Pept 376 pg/ml 06/10/25 11:41
Impression / Plan
-
Primary Qa Tester: Dr. Murali Wagner
Assessment:
Acute diastolic CHF
Atrial flutter, new diagnosis, noted onset 12/09 in hospital
Recent diagnosis vertigo as OP, improved
CAD status post CABG in 2016
Brief postop A-fib
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
Chronic heart failure preserved EF
Sick sinus syndrome status post Medtronic pacemaker 2010
Hypertension
Hyperlipidemia
Type 1 diabetes, insulin-dependent
Hypothyroidism
Myasthenia gravis
History of TIA/CVA
Chronic venous insufficiency
Possible prior esophageal stricture treated at [facility]
ECHO 2019: EF 55 to 60%, MAC, mild MR, moderate TR, PAP 32 mmHg
ECHO 12/11/23: EF 53%, trace MR, mild to moderate TR, PAP 32 mmHg, trace [place]
Echocardiogram 11/28/2024: Ejection fraction 56%, aortic sclerosis, PA systolic 30-35 mmHg
Plan:
Cardiology consulted for acute diastolic CHF due to noncompliance with Lasix
Volume status appears reasonable at present with IV diuresis during admission
Weight is down 10 pounds according to our office weight on June 05 and admission weight on June 10.
He received another dose of IV Lasix earlier this morning
He is currently on room air
Will check proBNP in a.m. but there is no comparison as was not done on admission
He might be able to be discharged on Friday 06/15 as he has an appointment with neurology on Sunday to reschedule plasmapheresis for myasthenia gravis
In sinus rhythm on ECG on admission
Continue Eliquis
Data Reviewed
-
EKG: Tracing Personally Visualized and interpreted
Radiology: Report Reviewed by me
Medical Tests (Nuc Med, Echo etc): Report Reviewed by me
Labs: Labs Reviewed by me
Old Records: Reviewed
[2025-06-14 11:59] LABS: Blood Urea Nitrogen 58 mg/dl (9-20); Calcium 7.8 mg/dl (8.4-10.2); Carbon Dioxide 30 mmol/L (22-30); Chloride 102 mmol/L (98-107); Estimated Creatinine Clearance 38 ml/min; Glucose 146 mg/dl (70-99); Potassium 4.6 mmol/L (3.5-5.1); Sodium 131 mmol/L (135-145); eGFR 46.19
[2025-06-14] MEDS: PT'S OWN INSULIN PUMP - NovoLOG 5.3 UNIT SC (12:43)
[2025-06-14 15:53] VITALS: BP 122/53
[2025-06-14 16:17] LABS: Glucose - Point of Care 178 mg/dl (70-99)
[2025-06-14] MEDS: PT'S OWN INSULIN PUMP - NovoLOG 5.5 UNIT SC (17:38)
[2025-06-14 19:51] VITALS: BP 113/57
[2025-06-14 21:21] LABS: Glucose - Point of Care 132 mg/dl (70-99)
[2025-06-14] MEDS: PT'S OWN INSULIN PUMP - NovoLOG SC (22:59)
[2025-06-14 23:24] VITALS: BP 128/68
[2025-06-14 23:30] LABS: Glucose - Point of Care 76 mg/dl (70-99)
[2025-06-15 03:24] LABS: Glucose - Point of Care 129 mg/dl (70-99)
[2025-06-15 03:27] VITALS: BP 122/69
[2025-06-15] MEDS: SYNTHROID 125 MCG PO (04:59)
[2025-06-15 06:00] VITALS: BMI 28.9
[2025-06-15 07:29] LABS: Glucose - Point of Care 88 mg/dl (70-99)
[2025-06-15 07:45] VITALS: BP 124/56
[2025-06-15] MEDS: PT'S OWN INSULIN PUMP - NovoLOG 4 UNIT SC (08:59)
[2025-06-15] MEDS: PROTONIX 40 MG PO (09:00)
[2025-06-15] MEDS: ELIQUIS 5 MG PO (09:00)
[2025-06-15] MEDS: LIPITOR 80 MG PO (09:01)
[2025-06-15] MEDS: TOPROL XL 50 MG PO (09:01)
[2025-06-15] MEDS: DELTASONE 30 MG PO (09:01)
[2025-06-15] MEDS: ZITHROMAX 500 MG PO (09:01)
[2025-06-15] MEDS: DESENEX/MITRAZOL/ZEASORB 1 APPLIC TOPICAL (09:02)
[2025-06-15] MEDS: MESTINON 60 MG PO (09:04)
[2025-06-15 09:09] LABS: Blood Urea Nitrogen 54 mg/dl (9-20); Calcium 8.4 mg/dl (8.4-10.2); Carbon Dioxide 34 mmol/L (22-30); Chloride 100 mmol/L (98-107); Estimated Creatinine Clearance 44 ml/min; Glucose 85 mg/dl (70-99); Potassium 3.9 mmol/L (3.5-5.1); Sodium 136 mmol/L (135-145); eGFR 54.85
--- NOTE | 2025-06-15 09:49 | W.PN.CARDCBS ---
Addendum entered and electronically signed by Nico Ramos MD 06/15/25 18:03:
80-year-old man admitted with acute on chronic HFpEF related to noncompliance with diuretic June 10.
PMH: Medtronic pacemaker, CAD/CABG 2016, postop A-fib, HFimpEF, myasthenia gravis, hypothyroidism, stroke, esophageal strictures, diabetes on insulin pump
Current meds: Amlodipine 2.5 mg on hold, atorvastatin 80 mg a day, azithromycin, levothyroxine, lisinopril 40 mg a day, metoprolol ER 50 mg daily, prednisone 30 mg a day, Mestinon, insulin pump, pantoprazole
124/56, pulse 73, respiratory rate 16, afebrile, intake and output -1.4 L, weight is 88.62, admission weight was 93.9 kg, no distress, lungs are mostly clear, regular rate and rhythm, no obvious murmurs, trace to 1+ edema
proBNP today 251, was 376 on admission
Yesterday sodium 131, potassium 4.6, BUN and creatinine 58 and 1.5, creatinine had been 1.1, labs today are pending - m creatinine 1.3, BUN is 54, potassium is 3.9, sodium 136
Echo 11/2024: EF 56%, trace MR, aortic sclerosis, normal right heart, pacing leads, pulmonary artery systolic pressure of 30-35 mmHg
Chest x-ray poor inspiration
ECG AV paced
Impression:
As per note below. Reviewed in detail and agree, unless otherwise specified.
Plan:
Overall he appears improved, though he may be still somewhat volume overloaded.
He is not on spironolactone or an SGLT2 antagonist. He has type 2 diabetes.
Creatinine elena to 1.5, now 1.3 with baseline 1.1. Lisinopril is on hold. His weight is down over 5 kg.
He is anxious to leave the hospital, so we will facilitate discharge.
Would recommend discharge on Farxiga 10 mg daily or Jardiance 10 mg daily if not cost prohibitive.
Hold lisinopril at discharge and resume as outpatient.
At outpatient follow-up, consider spironolactone.
Would discharge on furosemide 80 mg a.m. and 40 p.m. which was his admission dosing,
We will arrange for cardiac follow-up.
Other meds per hospitalist. Discussed with Dr. Purdy.
Original Note:
Today's Communication / Plan
-
Discharge to home on Lasix 80 mg a.m. and 40 mg p.m. daily
Cardiology follow-up being arranged
Impression / Plan
-
PCP: Dr. Norton
Primary Teasel Gig Operator: Dr. Murali Wagner
Impression:
Admitted with acute HF 06/10/25
Acute on chronic HFpEF
Paroxysmal typical atrial flutter diagnosed 12/10/23
h/o self-limited paroxysmal Afib post-CABG without recurrence on device monitoring
Chronic Eliquis OAC
s/p Medtronic PPM
Vertigo
CAD s/p CABG in 2016
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
Hypertension
Hyperlipidemia
Type 1 diabetes, insulin-dependent
Hypothyroidism
Myasthenia gravis
History of TIA/CVA
Chronic venous insufficiency
Possible prior esophageal stricture treated at [facility]
ECHO 2019: EF 55 to 60%, MAC, mild MR, moderate TR, PAP 32 mmHg
ECHO 12/11/23: EF 53%, trace MR, mild to moderate TR, PAP 32 mmHg, trace [place]
Echo 11/28/2024: Ejection fraction 56%, aortic sclerosis, PA systolic 30-35 mmHg
Plan:
-Patient came to the ER on 06/10/2025 with increased LE edema and Lasix noncompliance and there is initially consideration for outpatient management, the patient eventually admitted and being diuresed with Lasix IV and cardiology was consulted.
-Admission weight was 207 lbs using an ER stretcher scale and improved to 195 lbs using standing scale on 4 E. Suspect the admission weight was incorrect because it was with the stretcher scale, but overall patient reports symptomatic improvement
with SOB and edema.
-Patient was taking Lasix 80 mg AM and 40 mg p.m. daily prior to admission and we recommend resuming that dose upon discharge
-EF was preserved at 56% by echo 11/28/2024
-Outpatient dose of lisinopril 40 mg daily is on hold due to OMAR and we will follow-up as an outpatient to see if this can be restarted
-Patient has a $0 co-pay for Jardiance and Farxiga and is being discharged to home on Jardiance 10 mg daily as a new medication from this admission
-Outpatient dose of Toprol XL 50 mg daily has been continued
-Cardiology follow-up is being arranged and patient stable for discharge to home
Progress Note - Teasel Gig Operator
Subjective
Date of Service: June 15, 2025
He feels well and is anxious to go home, he does not want to stay any longer
Objective
Labs:
06/11/25 07:59
06/15/25 08:25
Labs
Hgb 15.2 g/dL (13.0-18.0) 06/11/25 07:59
Hct 47.7 % (39.0-52.0) 06/11/25 07:59
Plt Count 154 10^3/uL (130-400) 06/11/25 07:59
Sodium 136 mmol/L (135-145) 06/15/25 08:25
Potassium 3.9 mmol/L (3.5-5.1) 06/15/25 08:25
BUN 54 mg/dl (9-20) H 06/15/25 08:25
Creatinine 1.3 mg/dL (0.7-1.3) 06/15/25 08:25
Glucose 85 mg/dl (70-99) 06/15/25 08:25
Vital Signs and I&O:
Vital Signs
Temp Pulse Resp BP Pulse Ox
97.9 F 73 16 124/56 94
06/15/25 07:45 06/15/25 07:45 06/15/25 07:45 06/15/25 07:45 06/15/25 07:45
Vital Signs
Temp Pulse Resp BP Pulse Ox
97.9 F 73 16 124/56 94
06/15/25 07:45 06/15/25 07:45 06/15/25 07:45 06/15/25 07:45 06/15/25 07:45
Intake & Output
06/13/25 06/14/25 06/15/25 06/16/25
06:59 06:59 06:59 06:59
Intake Total 1670 / 1670 1076 / 1076 927 / 927
Output Total 1999 / 1999 1350 / 1350 2375 / 2375
Balance -330 / -330 -274 / -274 -1448 / -1448
Physical Exam
Physical Exam
General: NAD
Heart: AV paced on telemetry
Lungs: RA without audible wheeze
--- NOTE | 2025-06-15 10:31 | W.DCSUMMARY ---
Addendum entered and electronically signed by Chris Purdy MD 06/17/25 11:58:
Add on to home medication list
Jardiance 10 mg daily
Original Note:
Discharge Summary
Discharge Data
Date of Admission: 06/10/25
Date of Discharge: 06/15/25
-
Pending Results: No
Hospital Course
Discharging Physician : Dr Chris Purdy
Disposition : To home
Primary care physician : Dr Gary Norton
Principal Discharge diagnosis :
Acute on chronic diastolic congestive heart failure
Acute kidney injury
Hypotension
Chronic Discharge diagnosis :
Coronary disease with history of bypass
Paroxysmal atrial fibrillation
Essential hypertension
Hyperlipidemia
Insulin-dependent arthritis
Hypothyroidism
Myasthenia gravis
History of sick sinus syndrome post pacemaker
Physical examination:
HEENT: moist mucus membrane,
Chest: Clear to auscultation
Heart: N s1/s2, RRR, no rub/mrumur/gallops
Abd: N BS, soft, nontender, nondistended, no organomegaly
Neuro: No motor or sensory deficits
Ext: No cyanosis, Clubbing, edema
Hospital Course :
Patient is an 80-year-old male with a past medical history came to ER with increased lower extremity swelling. Patient reported of having weight gain of roughly 12 pounds. Also was endorsing dyspnea on exertion. Based on exam patient was
diagnosed to having diastolic heart for exacerbation and was started on IV diuretic therapy. Cardiology was involved in care and was monitoring patient during this hospital. Patient had mild renal dysfunction from diuresis and diuretics were held
for 24 hours. After improvement of renal function patient was resumed back on oral diuretic therapy discharge. Patient also had some Hypotension and blood pressure medications were adjusted. Based on cardiology recommendation patient was started
on Jardiance at discharge. Post improvement patient was discharged home with plan for patient to follow-up in cardiology office
Important imaging findings :
None
Procedure findings :
None
Discharge Plan
-
Patient Disposition: Home with Home Care
Discharge Diagnosis/Procedures: Acute on chronic diastolic congestive heart failure, acute kidney injury, hypotension
Condition: Fair
Diet: Low Sodium and Restrict fluids to 48 oz
Activity: As tolerated
Driving Restrictions: As prior to admission
Bathing Restrictions: OK to Shower
Activity Restrictions/Additional Instructions:
Wound Care Instructions
RLE small wound-clean with saline, silicone border foam, change q 3 days and as needed for loosened dressing (add adaptic/alginate as needed for large amount of drainage) until healed.
LLE wounds-clean with saline, Aquaphor ointment to surrounding skin, adaptic, alginate, ABD pad, secure with Kerlix, change daily and as needed for drainage.
Miconazole powder to coccyx crease twice a day. Zinc barrier ointment to nehemiah skin twice a day as needed for moisture.
Bilateral knee high Navi wraps as tolerated; re-wrap daily.
Elevate heels off bed with pillows.
Pressure redistributing chair cushion (i.e. Air chair cushion).
Follow up at wound care center call for an appointment.
Instructions: *DCA Heart Failure Instructions
Referrals:
Gary Norton MD [Family Provider, Family Practice] - in one week
Arcadio Wagner MD [Active, Cardiology]
Prescriptions:
New
Jardiance 10 mg tablet
10 mg PO DAILY Qty: 30 1RF
Continued
atorvastatin 80 MG tablet
80 mg PO DAILY
metoprolol succinate 50 mg Tablet Extended Release 24 Hr
50 mg PO DAILY
pyridostigmine bromide 60 mg tablet
60 mg PO TID@08,12,17
insulin aspart U-100 [Novolog U-100 Insulin aspart] 100 unit/mL Solution
1 sliding scale dose SC .VIA PUMP Qty: 0
Rx Instructions:
novolog vial filled q7days
levothyroxine 125 mcg tablet
125 mcg PO DAILY@06
azithromycin 500 mg tablet
500 mg PO DAILY
prednisone 20 mg tablet
30 mg PO DAILY
Eliquis 5 mg tablet
5 mg PO BID Qty: 14 0RF
Held
lisinopril 40 mg tablet
40 mg PO DAILY
Hold Instructions: Resume on 05/04/25.
furosemide 20 mg tablet
80 mg PO DAILY@08
Hold Instructions: Resume on 05/04/25.
furosemide 20 mg tablet
40 mg PO DAILY@17
Hold Instructions: Resume on 05/04/25.
Discontinued
amlodipine 2.5 mg tablet
2.5 mg PO DAILY
Discharge Orders:
Discharge Patient (As Directed); Ordered 06/15/25
Ordered By: Chris Purdy
Discharge Date and Time
Discharge Date/Time: 06/15/25 12:15
Print Language: MONGOLIAN
--- NOTE | 2025-06-15 11:35 | VNURNOTE ---
Chart reviewed. Home Health Liaison met with patient at bedside to discuss [facility] nurse/therapy, visits, schedule and homebound status. Patient is agreeable and understands that visits at home will be 2-3 x per week to assess and teach medical
management. patient stated he has a PCP appt tomorrow/Sunday. Patient is aware that [facility] will contact them for start of care in 1-2 days after discharge from . Provided contact number for [facility].
[facility] referral accepted in [facility].
--- NOTE | 2025-06-15 12:40 | CM ---
Copays for Jardiance and Faxiga are both 0$. 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
Plan: Discharged to home with VN
--- NOTE | 2025-06-16 09:27 | W.HF.CON ---
Heart Failure
- LV Function
Left ventricular function study result: LV Ejection fraction >/= 50%
Ejection Fraction Percentage: 56
- ARNI
Patient already on ARNI: No
Heart Failure ARNI Not Indicated: LV Ejection Fraction >/= 40%
- ACEI/ARB
Patient already on ACEI/ARB: Yes
- Beta Sabine
Patient already on Evidence Based Beta Sabine: Yes
- Mineralocorticord Receptor Antagonist
Patient already on MRA: No
Heart Failure MRA Not Indicated: LV Ejection Fraction > 40%
- SGLT-2 Inhibitor
Patient already on SGLT-2 Inhibitor: No
Heart Failure SGLT-2 Inhibitor Not Indicated: LV Ejection Fraction >40%
- Afib Anticoagulation
Patient already on Anticoagulation for Afib: Yes
- NYHA CHF Classification
NYHA CHF Classification Level: Class III - Symptoms w/ min exertion, interferes w/ nml daily activity
- ACC/AHA Stage
ACC/AHA Stage: Stage C: Symptomatic Heart Failure
== END 2025-06-15 12:15 | disposition home health service (06) | DRG 291 ==
LOC: 4 EAST ACU 14:11
PROVIDERS: Family Medicine; Physician Assistant Medical; ADMITTING PHYSICIAN Student in an Organized Health Care Education/Training Program; ATTENDING PHYSICIAN Hospitalist; CONSULT PHYSICIAN Internal Medicine Cardiovascular Disease; EMERGENCY PHYSICIAN Emergency Medicine; FAMILY PHYSICIAN Family Medicine
DX: I11.0 Hypertensive heart disease with heart failure (principal); I50.33 Acute on chronic diastolic (congestive) heart failure; I48.92 Unspecified atrial flutter; N17.9 Acute kidney failure, unspecified; I25.10 Atherosclerotic heart disease of native coronary artery without angina pectoris; E78.00 Pure hypercholesterolemia, unspecified; E10.9 Type 1 diabetes mellitus without complications; E03.9 Hypothyroidism, unspecified; G70.00 Myasthenia gravis without (acute) exacerbation; I48.0 Paroxysmal atrial fibrillation; I49.5 Sick sinus syndrome; I95.9 Hypotension, unspecified; Z96.41 Presence of insulin pump (external) (internal); Z86.73 Personal history of transient ischemic attack (TIA), and cerebral infarction without residual deficits; Z87.891 Personal history of nicotine dependence; Z95.0 Presence of cardiac pacemaker; Z79.4 Long term (current) use of insulin; Z79.01 Long term (current) use of anticoagulants; Z79.899 Other long term (current) drug therapy; Z91.148 Patient's other noncompliance with medication regimen for other reason; Z79.890 Hormone replacement therapy
CPT/HCPCS: 71046; 80048; 80053; 82962; 83735; 83880; 84484; 85025; 85027; 93005; 96374; 97116; 97162; 99285

== ENCOUNTER → 2025-06-19 12:02 | Outpatient (REF) | payer OTHER, SELFPAY | LOC: WOUND 12:02 | PROVIDERS: ATTENDING PHYSICIAN Surgery; FAMILY PHYSICIAN Family Medicine | DX: I87.313 Chronic venous hypertension (idiopathic) with ulcer of bilateral lower extremity (principal); L97.321 Non-pressure chronic ulcer of left ankle limited to breakdown of skin; I87.2 Venous insufficiency (chronic) (peripheral); E10.42 Type 1 diabetes mellitus with diabetic polyneuropathy; I50.32 Chronic diastolic (congestive) heart failure; E10.3493 Type 1 diabetes mellitus with severe nonproliferative diabetic retinopathy without macular edema, bilateral; G70.00 Myasthenia gravis without (acute) exacerbation; I65.29 Occlusion and stenosis of unspecified carotid artery; Z95.1 Presence of aortocoronary bypass graft | CPT/HCPCS: 99204 ==

== ENCOUNTER → 2025-06-26 08:46 | Outpatient (REF) | payer OTHER, SELFPAY | LOC: WOUND 08:46 | PROVIDERS: ATTENDING PHYSICIAN Surgery; FAMILY PHYSICIAN Family Medicine | DX: I87.313 Chronic venous hypertension (idiopathic) with ulcer of bilateral lower extremity (principal); L97.321 Non-pressure chronic ulcer of left ankle limited to breakdown of skin; I87.2 Venous insufficiency (chronic) (peripheral); E10.42 Type 1 diabetes mellitus with diabetic polyneuropathy; I50.32 Chronic diastolic (congestive) heart failure; E10.3493 Type 1 diabetes mellitus with severe nonproliferative diabetic retinopathy without macular edema, bilateral; G70.00 Myasthenia gravis without (acute) exacerbation; I65.29 Occlusion and stenosis of unspecified carotid artery; Z95.1 Presence of aortocoronary bypass graft | CPT/HCPCS: 99212 ==

== ENCOUNTER → 2025-07-03 06:29 | Outpatient (REF) | payer OTHER, SELFPAY ==
[2025-07-03 07:20] LABS: Hematocrit 39.0 % (39.0-52.0); Hemoglobin 12.6 g/dL (13.0-18.0); Mean Corp Hgb Conc. 32.3 g/dL (33.0-37.0); Mean Corpuscular Volume 96.8 fL (80.0-94.0); Nucleated Red Blood Cells % 0 % (-); Platelet Count 174 10^3/uL (130-400); Red Cell Dist. Width 16.8 % (11.5-14.5)
[2025-07-03 08:06] LABS: ALT (SGPT) 42 U/L (0-50); AST (SGOT) 35 U/L (17-59); Albumin 3.7 g/dl (3.5-5.0); Alkaline Phosphatase 89 U/L (38-126); Blood Urea Nitrogen 29 mg/dl (9-20); Calcium 8.5 mg/dl (8.4-10.2); Chloride 105 mmol/L (98-107); Glucose 97 mg/dl (70-99); Potassium 3.9 mmol/L (3.5-5.1); Sodium 143 mmol/L (135-145); Total Protein 6.3 g/dl (6.3-8.2); eGFR > 60.00
[2025-07-03 08:13] LABS: Carbon Dioxide 35 mmol/L (22-30)
== END ==
LOC: REG 06:29
PROVIDERS: ATTENDING PHYSICIAN Physician Assistant; FAMILY PHYSICIAN Family Medicine; REFERRING PHYSICIAN Internal Medicine Cardiovascular Disease
DX: I50.32 Chronic diastolic (congestive) heart failure (principal); N17.9 Acute kidney failure, unspecified
CPT/HCPCS: 36415; 80053; 85025

== ENCOUNTER 2025-07-29 14:43 | Inpatient (IN) | payer OTHER, SELFPAY ==
[2025-07-29] VITALS (12 sets, daily range): BP systolic 107–153; BP diastolic 59–85; BMI 31.0
[2025-07-29 11:11] LABS: Hematocrit 39.8 % (39.0-52.0); Hemoglobin 13.2 g/dL (13.0-18.0); Mean Corp Hgb Conc. 33.2 g/dL (33.0-37.0); Mean Corpuscular Volume 97.1 fL (80.0-94.0); Nucleated Red Blood Cells % 0 % (-); Platelet Count 161 10^3/uL (130-400); Red Cell Dist. Width 16.4 % (11.5-14.5)
--- NOTE | 2025-07-29 11:21 | ED.GENMED ---
History of Present Illness
General
Chief Complaint: Breathing Problem
Source: patient
Time Seen by Provider: 07/29/25 11:08
History of Present Illness
History of Present Illness:
80-year-old male presents to the emergency room complaining of dyspnea on exertion, increased lower extremity edema, and increased weight. Patient believes he was about 195 when he was discharged home. Today he was 205 on his home scale. Based on
our scale here he is up about 6 kg. Patient denies any chest pain. Patient states he has been compliant with his oral diuretics. He takes 80 in the morning and 40 in the evening. Patient is known to Dr. Wagner. He is due for a pacemaker
replacement soon.
Past History
Past History
ED Past Medical History: Arrthythmia (SA node dysfunction), CAD, HTN, Hypercholesterolemia, IDDM, Hypothyroidism and Other (Cricopharyngeus bar, Myasthenia Gravis)
ED Past Surgical History: Cardiac (medtronic pacemaker 2007) and Other
Social History
Tobacco: Non-smoker
Alcohol: None
Drug: None
Personal: Other
Living: alone
Employment: Retired
Family History
Family History: Other (Sister with diabetes)
Phy Exam
Physical Exam
Physical Exam:
General: Awake, Alert, Oriented X3. No acute distress.
Vitals: unremarkable
Head: Atraumatic
Eyes: Pupils equal, EOMI
Throat: Airway intact, no exudates
Neck: Trachea midline
Lungs: Crackles bilateral bases
Heart: Regular rate, no murmurs
Abd: Soft, Nontender, No pulsatile mass
Neuro: Nonfocal
Skin: Warm, dry, no rash
Extremities: pulses equal b/l, 3+ edema
Scores
Heart Failure Risk
Heart Failure Risk Score: Yes
History of Stroke or TIA: Yes
History of intubation for respiratory distress: No
Heart rate on ED arrival >/= 110: No
SaO2 <90% on arrival on room air: Yes
HR >/=110 during 3min walk test (or too ill to perform test): Yes
ECG has acute ischemic changes: No
Urea >/=12mmol/L (BUN 33.6mg/dL): No
Serum CO2>/=35mmol/L: No
Troponin I or T elevated to CT Level (0.4mg/dL): No
NT-proBNP >/=5,000ng/L (5,000pg/ml): No
HF Risk Score: 4
Admission Status: HIGH RISK 26.1% Consider SNF treatment or admission to hospital
Course
Orders/Labs/Results
Orders:
Orders
07/29/25 10:24
Electrocardiogram (*1) Urgent
Reason for Study: Shortness of Breath
EKG- Treatment ONCE
CXR2 [CR Chest - 2 Views ] Urgent
Comment:
Reason For Exam: shortness of breath
07/29/25 11:01
Complete Blood Count/With Diff Urgent
Comprehensive Metabolic Panel Urgent
Magnesium Urgent
NT-proBNP Urgent
Troponin I Urgent
07/29/25 11:26
Interrogate Pacemaker- Treatment ONCE
Comment: Medtronic device
07/29/25 12:18
Furosemide [Lasix] 60 mg IV NOW STA
Abnormal Lab Results
07/29/25
11:01
RBC 4.10 L 10^6/uL
(4.70-6.10)
MCV 97.1 H fL
(80.0-94.0)
MCH 32.2 H pg
(27.0-31.0)
RDW 16.4 H %
(11.5-14.5)
MPV 10.5 H fL
(7.4-10.4)
Abs Immat Gran (auto) 0.1 H 10^3/uL
(0-0.05)
Absolute Neuts (auto) 7.0 H 10^3/uL
(1.4-6.5)
Absolute Lymphs (auto) 0.7 L 10^3/uL
(1.2-3.4)
Absolute Monos (auto) 0.8 H 10^3/uL
(0.1-0.6)
Immature Gran % 1.4 H %
(0-0.5)
Neutrophils % 81.1 H %
(42.2-75.2)
Lymphocytes % 7.7 L %
(20.5-51.1)
Carbon Dioxide 34 H mmol/L
(22-30)
BUN 31 H mg/dl
(9-20)
Glucose 69 L mg/dl
(70-99)
Magnesium 2.5 H mg/dl
(1.6-2.3)
ALT 52 H U/L
(0-50)
07/29/25 11:01
07/29/25 11:01
Vital Signs
Initial and Last Documented VS:
Initial Vital Signs
Temp Pulse Resp BP Pulse Ox
97.9 F 84 21 140/74 98
07/29/25 10:19 07/29/25 10:19 07/29/25 10:19 07/29/25 10:19 07/29/25 10:19
Last Documented Vital Signs
Temp Pulse Resp BP Pulse Ox
97.9 F 71 18 124/66 98
07/29/25 10:19 07/29/25 14:00 07/29/25 14:00 07/29/25 14:00 07/29/25 14:00
MDM/Problems Addressed
Differential Diagnosis Includes:
Exacerbation of CHF, anemia, dysrhythmia
MDM/Problems Addressed:
Patient presents with increased shortness of breath with exertion. Patient was recently admitted for similar symptoms and had fluid overload. Patient has had significant weight gain since discharge. Chest x-ray does not show any significant
pulmonary edema. Given patient's inability perform any significant activities daily living will require hospitalization for diuresis.
Chronic conditions affecting care: HTN, CAD and Cardiomyopathy
*Radiology
Radiology exam reviewed: preliminary read by ED provider (No significant change from previous)
*Pulse Oximetry
SaO2: 94
Oxygen Mode of Delivery: Room air
Patient hypoxic: yes
*EKG
Interpreted by ED Provider?: Yes
Heart Rate: 71
Rate: normal
Rhythm: av sequential
[place]: normal axis
Interval: normal interval
QRS Pattern: normal QRS
Ischemia: non-specific ST changes
*Digitizer Interpretation
Rate: normal
Interpretation: abnormal
Heart Rate: 71
Rhythm: av sequential
*Critical Care Note
Total Time (30-74mins, 75-104mins- exclusive of procedures): Not Applicable
Data Reviewed
Review of Other/Old Records Reveals: Progress Notes (Cardiology notes) and Discharge Summary
ED Attending Note
-
Portions of this chart may have been created with voice recognition software.� Occasional wrong word or��sound alike� substitutions may have occurred due to the inherent limitations of voice recognition software.
Discharge Plan
Departure
Patient Disposition: Admit
Date of Disposition: 07/29/25
Time of Disposition: 13:34
Admit to: Med/Surg
Presentation/result/management discussed w/ accepting MD/DO: Hospitalist
Condition: Fair
Discharge Problem:
Diastolic CHF
Prescriptions:
No Action
atorvastatin 80 MG tablet
80 mg PO DAILY
metoprolol succinate 50 mg Tablet Extended Release 24 Hr
50 mg PO DAILY
pyridostigmine bromide 60 mg tablet
60 mg PO TID@08,12,17
levothyroxine 125 mcg tablet
125 mcg PO DAILY@06
azithromycin 500 mg tablet
500 mg PO DAILY
prednisone 20 mg tablet
30 mg PO DAILY
Eliquis 5 mg tablet
5 mg PO BID Qty: 14 0RF
Jardiance 10 mg tablet
10 mg PO DAILY Qty: 30 1RF
acetaminophen [Tylenol] 325 mg Tablet
650 mg PO Q6HPRN PRN (Reason: mild pain)
furosemide [Lasix] 20 mg Tablet
120 mg PO DAILY
lisinopril 40 mg Tablet
40 mg PO DAILY
Patient Own Insulin Pump
1 sliding scale dose SC .VIA NOVOLOG
Zilbrysq 32.4 mg/0.81 mL Syringe
32.4 mg SC DAILY
Referrals:
Gary Norton MD [Family Provider, Family Practice]
Interventions
Interventions:
*Risk Screen - Suicide Last Done: 07/29/25 10:19
*General Assessment Last Done: 07/29/25 10:19
*Neglect/Abuse Screening Last Done: 07/29/25 10:19
*ED COVID-19 Vaccine History Last Done: 07/29/25 10:19
*ED Influenza Vaccine History Last Done: 07/29/25 10:19
[facility] Risk Assessment Tool Last Done: 07/29/25 10:19
ED- Cardiac Assessment Last Done: 07/29/25 10:19
ED- Pulmonary Assessment Last Done: 07/29/25 10:19
Discharge Date and Time
Print Language: ICELANDIC
[2025-07-29 11:40] LABS: Troponin I < 0.012 ng/ml
[2025-07-29 11:41] LABS: ALT (SGPT) 52 U/L (0-50); AST (SGOT) 41 U/L (17-59); Albumin 3.9 g/dl (3.5-5.0); Alkaline Phosphatase 66 U/L (38-126); Blood Urea Nitrogen 31 mg/dl (9-20); Calcium 8.8 mg/dl (8.4-10.2); Carbon Dioxide 34 mmol/L (22-30); Chloride 107 mmol/L (98-107); Estimated Creatinine Clearance 59 ml/min; Glucose 69 mg/dl (70-99); Magnesium 2.5 mg/dl (1.6-2.3); Potassium 4.1 mmol/L (3.5-5.1); Sodium 140 mmol/L (135-145); Total Protein 6.6 g/dl (6.3-8.2); eGFR > 60.00
[2025-07-29] MEDS: LASIX 60 MG IV ×2 (13:00→17:14)
--- NOTE | 2025-07-29 13:54 | HPS.HSE ---
Family Physician
-
Family Physician: Gary Norton
Chief Complaint
-
Bilateral leg edema, dyspnea on exertion, weight gain
History of Present Illness
80-year-old male complaining of dyspnea on exertion, increased bilateral lower extremity edema and weight gain. He has a skin tear right anterior harley due to weeping legs from edema Present on admission. He reports he is taking his furosemide 80
mg in the morning 40 mg in the evening has not missed any doses. He reports he has been steadily gaining weight since discharge 6 weeks ago. He was discharged on 06/15/2025 at 88.6 kg is currently 95.2 kg over the past 6 weeks 6.6 kg/14.52 pounds.
He had recent admission 06/10 - 06/15/2025 due to increased lower extremity edema with weight gain of 12 pounds and dyspnea on exertion he was given IV diuretics which need to be adjusted due to OMAR and hypotension. He was recommended to start
Jardiance at discharge. He is due for pacemaker change due to end of battery life on August 26. He past medical history of chronic diastolic heart failure, CAD/bypass, paroxysmal A-fib, SSS/permanent pacemaker, HTN, HLD,IDDM2 on insulin ,
hypothyroidism, myasthenia gravis
Medical History
Past Medical History
Past Medical History: Reports Other
Additional Past Medical History:
Coronary Artery Disease s/p CABG
Chronic HFpEF
Sick Sinus Syndrome s/p Pacemaker
Paroxysmal Atrial Fibrillation / Atrial Flutter
Essential Hypertension
Hyperlipidemia
Insulin-Dependent Diabetes Mellitus
Hypothyroidism
Myasthenia Gravis
Past Surgical History: Reports Other
Additional Past Surgical History:
CABG
PPM
Appendectomy
Hernia Repair
Right Total Knee Replacement
Social History
Tobacco: Non-smoker
Alcohol: None
Drug: None
Personal: Single
Living: Alone (Two-story home but sleeps in recliner on bottom level)
Family History
Family History: Not pertinent
Allergies / Home Medications
Allergies reflects when Allergies were last updated in [facility].
Home Medications with original date entered in [facility]
Allergy/Medication List:
Allergies
Allergy/AdvReac Type Severity Reaction Status Date / Time
efgartigimod mary-fcab (From Allergy Rash Verified 04/20/25 08:37
Vyvgart)
Home Medications
atorvastatin 80 mg tablet 80 mg PO DAILY High cholesterol 04/28/15
metoprolol succinate 50 mg tablet,extended release 24 hr 50 mg PO DAILY Blood Pressure 12/06/23
pyridostigmine bromide 60 mg tablet 60 mg PO TID@,,17 myasthenia gravis 12/06/23
levothyroxine 125 mcg tablet 125 mcg PO DAILY@06 Thyroid 04/20/25
azithromycin 500 mg tablet 500 mg PO DAILY Infection 06/10/25
prednisone 20 mg tablet 30 mg PO DAILY Anti-Inflammatory 06/10/25
apixaban 5 mg tablet (Eliquis) 5 mg PO BID Blood Clot Prevention/Tx #14 tabs 06/15/25
empagliflozin 10 mg tablet (Jardiance) 10 mg PO DAILY #30 tabs 06/15/25
Patient Own Insulin Pump 1 sliding scale dose SC .VIA NOVOLOG 07/29/25
acetaminophen 325 mg tablet (Tylenol) 650 mg PO Q6HPRN PRN mild pain 07/29/25
furosemide 20 mg tablet (Lasix) 120 mg PO DAILY Fluid Retention/Swelling 07/29/25
lisinopril 40 mg tablet 40 mg PO DAILY Blood Pressure 07/29/25
zilucoplan 32.4 mg/0.81 mL subcutaneous syringe (Zilbrysq) 32.4 mg SC DAILY 07/29/25
Review of Systems
-
History Source: Patient
A 12 point ROS was completed and negative except as noted: Yes
Constitutional: Reports Weight Gain (14 pounds past 6 weeks); Denies Fever or Chills
EENT: Denies Runny Nose
Respiratory: Reports Trouble Breathing (NICHOLAS); Denies Cough
Cardiac: Denies Chest Pain, Diaphoresis, Palpitations or Syncope
Abdomen/GI: Denies Abdominal Pain, Nausea, Vomiting, Diarrhea, Constipated, Bloody Stools or Black Stools
: Denies Dysuria, Frequency, Flank Pain, Incontinence, Difficulty Voiding, Urgency or Bleeding
Musculoskeletal: Reports Edema (+2 bilateral lower legs right lower anterior harley weeping open wound); Denies Joint Pain
Skin: Denies Itching
Neurological: Denies Dizzy or Headache
Endocrine: Reports No Symptoms
Hematologic/Lymphatic: Reports No Symptoms
Psych: Reports Calm
Physical Exam
Vital Signs
Vital Signs
Temp Pulse Resp BP Pulse Ox
97.9 F 81 15 141/76 94
07/29/25 10:19 07/29/25 13:00 07/29/25 11:15 07/29/25 13:00 07/29/25 11:26
Physical Exam
General: No Pain, Fever or Chills
HEENT: NormoCephalic, Anicteric, Moist mucous membranes, PERRLA, [place] Conjunctivae and No Ptosis
Respiratory: Clear; No Wheezes, Rales or Rhonchi
Cardiac: S1/S2, Regular Rhythm and Peripheral Edema (Bilateral leg +2 right lower extremity +2 edema with anterior harley wound due to weeping legs); No Murmur, Rub or Gallop
Breast: Deferred by me
GI: Soft, Non Tender, Non Distended, Normal Bowel Sounds and No Hepatosplenomegaly
Rectal: Deferred by Provider
Genito-urinary: Deferred by me
Musculoskeletal: No Clubbing, No Cyanosis, Edema, Left Lower Extremity (Bilateral leg +2 right lower extremity +2 edema with anterior harley wound due to weeping legs) and Edema, Right Lower Extremity (Bilateral leg +2 right lower extremity +2 edema
with anterior harley wound due to weeping legs); No Edema, Left Upper Extremity or Edema, Right Upper Extremity
Skin: Warm and Dry
Neuro: AO x 3, No Motor Deficits, Nonfocal/grossly intact, Cranial Nerves Intact and No Sensory Deficits; No Slurred Speech, Facial Droop, Tremors or Sedated
Psych: Calm
Laboratory Results
-
07/29/25 11:
07/29/25 11:01
Laboratory Results
Total Bilirubin 0.7 mg/dl (0.2-1.3) 07/29/25 11:
AST 41 U/L (17-59) 07/29/25 11:
ALT 52 U/L (0-50) H 07/29/25 11:
Alkaline Phosphatase 66 U/L (38-126) 07/29/25 11:01
Troponin I < 0.012 ng/ml 07/29/25 11:01
Data Reviewed
-
Diagnostic Radiology: Report Reviewed by me
Lab Data: Labs Reviewed by me
Impression/Plan
-
Impression/plan:
Admit to telemetry
#Acute on chronic diastolic CHF with skin tear right anterior harley due to weeping legs
88.6 kg is currently 95.2 kg over the past 6 weeks weight gain 6.6 kg/14.52 pounds
- I/O, daily weight
- Consult cardiology-DCA
- Patient given IV Lasix 60 mg in ER
- Continue IV Lasix 60 mg twice daily
- Follow CBC, CMP
CXR: No acute cardiopulmonary process
#Hx Sick Sinus Syndrome s/p Pacemaker
Patient due August 26 for pacemaker change due to end of battery life
#Coronary Artery Disease s/p CABG
-Continue metoprolol succinate 50 mg daily hold parameters
-Continue lisinopril 40 mg daily monitor creat
#Paroxysmal Atrial Fibrillation / Atrial Flutter
-Continue Eliquis
-Continue metoprolol with hold parameters
#Essential Hypertension
-Continue amlodipine, lisinopril and metoprolol
#Hyperlipidemia
-Continue atorvastatin
#Insulin-Dependent Diabetes Mellitus
Mild hyperglycemia on exam 69 patient to be given food with repeat Accu-Chek
-hgbA1c 7.1 in Apr 2025
Accu-Cheks ACHS and 3 AM
-Continue insulin pump
#Hypothyroidism
-Continue levothyroxine
#Myasthenia Gravis
-Continue prednisone and pyridostigmine
-Patient maintained on Soliris as outpatient - Continue azithromycin for prophylaxis
DVT proph: Eliquis
DNR per patient
--- NOTE | 2025-07-29 14:19 | W.PN.UPDATE ---
Update Note
Progress Note Update
This is an addendum to H&P written by HISTOLOGY TEACHER Jennie Jurado
I saw and examined the patient.
The HISTOLOGY TEACHER's note was reviewed and I agree with the note.
Comment:
Mr. Shree Thomas is a 80 yo man with hx myasthenia gravis, HTN, HLD, IDDM, CAD s/p CABG, HFpEF (EF 56% 12/12), atrial flutter on Eliquis, TIA/CVA, hypothyroidism, recent admission 04/20-05/01 for myasthenia gravis flare (s/p IV corticosteroids and
plasmapheresis), recent admission for HF exacerbation 06/10-06/15/25 presents to the ER with shortness of breath on exertion, increased lower extremity swelling and weight gain.
Triage VS: T 97.9, P 84, RR 21, BP 140/74, SpO2 98%
On exam patient is alert, oriented, in no distress. + JVP; + b/l LE swelling
LABS: WBC 8.6, Hg 13.2, PLT 161, Na 140, K+ 4.1, Cl 107, CO2 34, BUN 31, Cr 1.1, Glucose 69, Mag 2.5, T. Bili 0.7, AST 41, ALT 52, Alk Phos 66, Trop 0.012, BNP 389
EKG: AV dual-paced rhythm, no significant change from prior
CXR
IMPRESSION:
No acute cardiopulmonary process.
Heart Failure preserved EF, Acute Exacerbation
-patient's weight is up to 95.2 kg from 88.6 kg 06/15/25 (end of last admission)
-s/p Lasix 60mg IV in ER; patient takes Lasix 80mg and 40mg at home
-admit to telemetry
-continue Lasix 60mg IV BID
-REFRIGERATOR ROOM CLERK Jardiance ( newly started last admit)
-strict I/O, daily weights
-Cardiology consult
Essential HTN
-REFRIGERATOR ROOM CLERK Lisinopril, Metoprolol
Hyperlipidemia
-REFRIGERATOR ROOM CLERK Lipitor 80mg qhs
Hx PPM
-due for battery exchange in August
Atrial Flutter
-REFRIGERATOR ROOM CLERK Eliquis/ Metoprolol
Myasthenia Gravis
-REFRIGERATOR ROOM CLERK Prednisone, Pyridostigmine
-Azithromycin for PPx
CAD with hx CABG
DM
-OK for patient to use on insulin pump
Hx TIA/CVA
-REFRIGERATOR ROOM CLERK Eliquis/Statin
Hypothyroidism
-REFRIGERATOR ROOM CLERK Synthroid
DVT PPx Eliquis
FULL CODE
76 minutes spent on patient care
[2025-07-29 14:31] LABS: Glucose - Point of Care 114 mg/dl (70-99)
--- NOTE | 2025-07-29 14:55 | CON.CAR ---
Addendum entered and electronically signed by Alex Cagle MD 07/29/25 15:24:
I saw and examined the patient.
The JAVA LEAD DEVELOPER or PA's note was reviewed and I agree with the note.
Comment: General: Well developed, well nourished in NAD.
Neck: Supple, no JVD, HJR, carotids +2 B/L, no bruits bilaterally.
Heart: Non displaced PMI, RRR, no murmurs, No S3, S4, no rubs.
Lungs: Scattered rhonchi
Extremities: No clubbing, cyanosis or edema bilaterally.
Neuro: Grossly nonfocal, awake, alert and oriented x3.
Miguel Ángel has a history of sick sinus syndrome status post Medtronic pacer 2010, CAD status post CABG in 2016 with brief postop A-fib, prior ischemic cardiomyopathy with recovery in ejection fraction, chronic diastolic CHF, hypertension, diabetes,
myasthenia gravis, hypothyroidism, TIA/CVA and possible esophageal stricture. He had been admitted in May 2025 with CHF probably due to diuretic noncompliance. He has noted 10 pound weight gain with dry weight 190-195 and had increasing
dyspnea on exertion. He is now admitted for acute diastolic CHF. Of note his battery is due to be changed in August 2024.
Will continue IV Lasix and assess response. Will see about changing his battery during hospitalization but may ultimately lead that to be done electively in August 2025.
Original Note:
Consultation
Consultation Request
Date/Time Consultation Performed: 07/29/25
Requesting Provider: Dr. Renner
Performing Provider: Jasmyn Orr PA-C for Dr. Cagle
Reason for Consultation: CHF
Medical History
-
Chief Complaint: SOB
History of Present Illness:
Miguel Ángel has a h/o SSS s/p Medtronic PPM 2010, CAD s/p CABG in 2016, brief post op afib, prior ischemic CM with recovery in EF, chronic HFpEF, HTN, HLD, IDDM type 1, Myasthenia gravis, hypothyroidism, history of TIA/CVA, possible esophageal stricture. He
had been admitted to [facility] 06/10- for acute CHF which was felt to be due to diuretic noncompliance. He was discharged on po lasix 80mg QAM And 40mg QPM. He reports since then he has been compliant however has noted 10+ pound weight gain, states
dry weight 190-195 pounds. Also reports associated NICHOLAS. No CP, palpitations. proBNP 389, however always low for patient. Cardiology consulted for evaluation. He has approximately 4 months left on device, scheduled for generator change 08/26/24.
PMH:
CAD status post CABG in 2017
Brief postop A-fib
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
Chronic heart failure preserved EF
Sick sinus syndrome status post Medtronic pacemaker 2010, dependent, scheduled for generator change 08/26/25
Hypertension
Hyperlipidemia
Type 1 diabetes, insulin-dependent
Hypothyroidism
Myasthenia gravis
History of TIA/CVA
Chronic venous insufficiency
Possible prior esophageal stricture treated at [facility]
Former smoker
Past Medical History
Past Medical History: Other (in HPI)
Social History
Tobacco: Former Smoker
Alcohol: None
Living: Alone
Employment: Retired
Family History
Family History: Reviewed & Not Pertinent
Allergies / Home Medications
Allergy/AdvReac Type Severity Reaction Status Date / Time
efgartigimod mary-fcab (From Allergy Rash Verified 04/20/25 08:37
Vyvgart)
�Medication �Instructions �Recorded �Confirmed �Type
atorvastatin 80 mg tablet 80 mg PO DAILY High cholesterol 04/28/15 07/29/25 History
metoprolol succinate 50 mg 50 mg PO DAILY Blood Pressure 12/06/23 07/29/25 History
tablet,extended release 24 hr
pyridostigmine bromide 60 mg tablet 60 mg PO TID@08,12,17 myasthenia 12/06/23 07/29/25 History
gravis
levothyroxine 125 mcg tablet 125 mcg PO DAILY@06 Thyroid 04/20/25 07/29/25 History
azithromycin 500 mg tablet 500 mg PO DAILY Infection 06/10/25 07/29/25 History
prednisone 20 mg tablet 30 mg PO DAILY Anti-Inflammatory 06/10/25 07/29/25 History
apixaban 5 mg tablet (Eliquis) 5 mg PO BID Blood Clot 06/15/25 07/29/25 Rx
Prevention/Tx #14 tabs
empagliflozin 10 mg tablet 10 mg PO DAILY #30 tabs 06/15/25 07/29/25 Rx
(Jardiance)
Patient Own Insulin Pump 1 sliding scale dose SC .VIA 07/29/25 07/29/25 History
NOVOLOG
acetaminophen 325 mg tablet 650 mg PO Q6HPRN PRN mild pain 07/29/25 07/29/25 History
(Tylenol)
furosemide 20 mg tablet (Lasix) 120 mg PO DAILY Fluid 07/29/25 07/29/25 History
Retention/Swelling
lisinopril 40 mg tablet 40 mg PO DAILY Blood Pressure 07/29/25 07/29/25 History
zilucoplan 32.4 mg/0.81 mL 32.4 mg SC DAILY 07/29/25 07/29/25 History
subcutaneous syringe (Zilbrysq)
Review of Systems
-
History Source: Patient
All other systems: Negative unless noted
Physical Exam
Vital Signs
Temp Pulse Resp BP Pulse Ox
97.9 F 71 18 124/66 98
07/29/25 10:19 07/29/25 14:00 07/29/25 14:00 07/29/25 14:00 07/29/25 14:00
Lab Results
07/29/25 11:01
07/29/25 11:01
Troponin I < 0.012 ng/ml 07/29/25 11:01
Xpz-E-Jegwtoulezh Pept 389 pg/ml 07/29/25 11:01
Physical Exam
General: No Apparent Distress and Comfortable
HEENT: Normocephalic, Anicteric and Moist Mucous Membranes
Respiratory: Clear and Non Labored Respirations
Cardiac: S1/S2 and Regular Rhythm
GI: Soft, Non Tender, Non Distended and Normal Bowel Sounds
Musculoskeletal: No Clubbing, No Cyanosis and Edema (2+ of B/L LE with discoloration of shins B/L felt to be chronic, small open area of L harley)
Skin: Warm and Dry
Neuro: AO x 3
Impression / Plan
-
Primary Loom Fixer Supervisor: Dr. Murali Wagner
Assessment:
Presentation with NICHOLAS, LE edema, weight gain
Acute on chronic HFimpEF
CAD status post CABG in 2016
Brief postop A-fib
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
Sick sinus syndrome status post Medtronic pacemaker 2010, dependent, scheduled for generator change 08/26/25
Hypertension
Hyperlipidemia
Type 1 diabetes, insulin-dependent
Hypothyroidism
Myasthenia gravis
History of TIA/CVA
Chronic venous insufficiency
Possible prior esophageal stricture treated at [facility]
Former smoker
DNR CODE STATUS
ECHO 11/28/24: EF 56%, trace MR, aortic sclerosis, normal right heart with pacing leads identified, PASP 30 to 35 mmHg
Plan:
- Patient presents with dyspnea on exertion, lower extremity edema, and 10+ pound weight gain over the last several weeks. Unlike last admission, he does report good compliance with Lasix. He denies significant dietary indiscretion.
- proBNP low in 300 range, however historically has always been low. Chest x-ray without acute abnormalities noted
- Would place on IV Lasix 80 mg twice daily. Prior to admission was taking 80 mg every morning and 40 mg every afternoon. Creatinine stable at 1.1. Dry weight felt to be 190 to 195 pounds
- Last echo from 11/2024 with results as above, consider repeating. He has history of ischemic cardiomyopathy with subsequent recovery post CABG
- In AV paced rhythm on review of EKG. [facility] completed in ER with AT/AF burden of less than 0.1%, consistent with previous. Follow on telemetry while admitted. Remains on Eliquis
- He is presently scheduled for generator change 08/26/2025. Device with approximately 4 months of battery remaining. Of note patient is pacemaker dependent.
- Troponin negative x 1. No chest pain. Does have history of CABG in 2017
- Continue outpatient regimen of Toprol, lisinopril, Jardiance
Data Reviewed
-
EKG: Tracing Personally Visualized and interpreted
Radiology: Report Reviewed by me
Medical Tests (Nuc Med, Echo etc): Report Reviewed by me
Labs: Labs Reviewed by me
Old Records: Reviewed
--- NOTE | 2025-07-29 15:33 | EDRN ---
this RN called the receiving unit and notified them that paper report was going to be tubed up
--- NOTE | 2025-07-29 15:57 | CM ---
Chart reviewed and spoke with patient at ED bedside
He lives alone in [address]
Independent with ADLs and ambulation
Using a cane for steps only
DME cane glucometer and insulin pump
PCP Gary Norton
[facility]
hx of [facility]
no hx of SNF
DCP To go home with [facility]
CM will continue to follow up for any dcp needs
[2025-07-29 16:47] LABS: Glucose - Point of Care 107 mg/dl (70-99)
[2025-07-29] MEDS: MESTINON 60 MG PO (17:21)
[2025-07-29] MEDS: ELIQUIS 5 MG PO (20:09)
[2025-07-29 23:02] LABS: Glucose - Point of Care 101 mg/dl (70-99)
[2025-07-29] MEDS: PT'S OWN INSULIN PUMP - NovoLOG SC (23:14)
[2025-07-30] VITALS (7 sets, daily range): BP systolic 107–121; BP diastolic 52–74; PULSE 71; O2SAT 97; BMI 29.8
[2025-07-30 02:53] LABS: Glucose - Point of Care 93 mg/dl (70-99)
[2025-07-30] MEDS: SYNTHROID 125 MCG PO (05:25)
[2025-07-30 06:40] LABS: Hematocrit 35.7 % (39.0-52.0); Hemoglobin 11.8 g/dL (13.0-18.0); Mean Corp Hgb Conc. 33.1 g/dL (33.0-37.0); Mean Corpuscular Volume 95.5 fL (80.0-94.0); Nucleated Red Blood Cells % 0 % (-); Platelet Count 166 10^3/uL (130-400); Red Cell Dist. Width 16.2 % (11.5-14.5)
[2025-07-30 07:00] LABS: ALT (SGPT) 41 U/L (0-50); AST (SGOT) 32 U/L (17-59); Albumin 3.3 g/dl (3.5-5.0); Alkaline Phosphatase 60 U/L (38-126); Blood Urea Nitrogen 31 mg/dl (9-20); Calcium 8.5 mg/dl (8.4-10.2); Carbon Dioxide 32 mmol/L (22-30); Chloride 105 mmol/L (98-107); Estimated Creatinine Clearance 59 ml/min; Glucose 77 mg/dl (70-99); Magnesium 2.4 mg/dl (1.6-2.3); Potassium 3.9 mmol/L (3.5-5.1); Sodium 137 mmol/L (135-145); Total Protein 5.7 g/dl (6.3-8.2); eGFR > 60.00
[2025-07-30] MEDS: DELTASONE 30 MG PO (07:56)
[2025-07-30] MEDS: LASIX 60 MG IV ×2 (07:58→15:16)
[2025-07-30] MEDS: FARXIGA 10 MG PO (07:58)
[2025-07-30] MEDS: ELIQUIS 5 MG PO ×2 (07:58→19:29)
[2025-07-30] MEDS: MESTINON 60 MG PO ×3 (07:59→16:58)
[2025-07-30] MEDS: TOPROL XL 50 MG PO (07:59)
[2025-07-30] MEDS: LIPITOR 80 MG PO (07:59)
[2025-07-30] MEDS: ZESTRIL 40 MG PO (08:00)
[2025-07-30] MEDS: ZITHROMAX 500 MG PO (08:00)
[2025-07-30 08:01] LABS: Glucose - Point of Care 72 mg/dl (70-99)
[2025-07-30] MEDS: PT'S OWN INSULIN PUMP - NovoLOG SC ×3 (08:13→21:37)
--- NOTE | 2025-07-30 10:42 | WOUNDNOTE ---
RIGHT GREAT TOE
--- NOTE | 2025-07-30 10:43 | WOUNDNOTE ---
RIGHT LOWER LEG BLISTER
--- NOTE | 2025-07-30 10:56 | WOUNDNOTE ---
[facility] RN note: Patient admitted with CHF
See H&P for complete history.
PMH:
Wound Location and type/assessment: Patient admitted with venous stasis changes to lower extremities, open blister to right lower leg and healing, dry blister to right great toe. Patient wears compression socks at home and wants to look into
getting compression wraps. Patient is unsure how he obtained to toe wound, but he has been using neosporin and dry dressing daily and said it appears to be healing well. No drainage or erythema noted on assessment. Patient ambulates in room. Heels
and sacrum intact.
Appetite: Good
Pressure redistribution devices in place: Versa Care Accumax
Plan: Local wound care provided and compression ordered. Orders confirmed with hospitalist. Will also recommend Hyrdophor for dry skin on LE. Will confirm orders with hospitalist and update nurse. Updated care plan and will follow as needed.
Note to case management of equipment requested for discharge:
Recommend follow up at wound care center upon discharge.
--- NOTE | 2025-07-30 11:30 | W.PN.HOSP.TC ---
Today's Communication/Plan
-
- Cardiology following
- Continue diuresis per cardiology recommendations
Assessment / Plan
Assessment / Plan
#Acute on chronic diastolic congestive heart failure
-Chest x-ray in ED no acute cardiopulmonary process
- Dry weight is 88.6 kg, currently 91 kg today
- I's and O's, daily weight
- Cardiology consulted and following
- Continue IV Lasix per cardiology recommendations
- Follow CBC
#Sick sinus syndrome s/p pacemaker
- Patient due for pacemaker change in August for battery life
- Cardiology following
#Coronary artery disease s/p CABG
- Continue metoprolol succinate 50 mg daily
- Continue lisinopril 40 mg daily
#Paroxysmal A-fib
- Continue Eliquis
- Continue metoprolol
#Hypertension
- Continue amlodipine, lisinopril, metoprolol
#Hyperlipidemia
- Continue atorvastatin
#Insulin-dependent diabetes
- Continue insulin pump
- Continue Accu-Cheks
#Hypothyroid
- Continue levothyroxine
#Myasthenia gravis
- Continue prednisone and pyridostigmine
- Patient maintained on Soliris as outpatient continue azithromycin for prophylaxis
Anticipated Discharge: 24 - 48 hours
Subjective/Interval History
-
Date of Service: July 30, 2025
Patient seen at the bedside this morning. Patient states that he is feeling better since he arrived in the ED. Patient notes decrease in swelling of his legs and improvement in his breathing. Patient is not having any shortness of breath this
morning at rest. Patient has noted that increase in frequency of urination due to the Lasix.
Objective Data
-
Labs:
Laboratory Results
07/30/25
06:22
WBC 8.3
Hgb 11.8 L
Hct 35.7 L
Plt Count 166
Sodium 137
Potassium 3.9
Chloride 105
Carbon Dioxide 32 H
BUN 31 H
Creatinine 1.1
Glucose 77
Calcium 8.5
Total Bilirubin 0.8
AST 32
ALT 41
Alkaline Phosphatase 60
Vital Signs:
Vital Signs
Temp Pulse Resp BP Pulse Ox
97.9 F 76 12 119/59 94
07/30/25 11:06 07/30/25 11:06 07/30/25 11:06 07/30/25 11:06 07/30/25 11:06
I&O
07/29/25 07/30/25 07/31/25
06:59 06:59 06:59
Intake Total 960 / 960
Output Total 1675 / 1675
Balance -715 / -715
Review of Systems
-
History Source: Patient
Constitutional: Reports No Symptoms
EENT: Reports No Symptoms Reported
Respiratory: Reports No Symptoms
Cardiac: Reports No Symptoms
Abdomen/GI: Reports No Symptoms
Breast: Reports No Symptoms
Genitourinary: Reports No Symptoms
Musculoskeletal: Reports Edema (Bilateral pitting edema)
Skin: Reports No Symptoms
Neuro: Reports No Symptoms
Endocrine: Reports No Symptoms
Hematologic / Lymphatic: Reports No Symptoms
Allergy / Immunology: Reports No Symptoms
Physical Exam
-
General: Well Developed, Well Nourished, No Apparent Distress and Comfortable
HEENT: Normocephalic, Atraumatic and Moist Mucous Membranes
Respiratory: Clear to Auscultation
Cardiac: Regular Rhythm
GI: Soft, Nontender and Nondistended
Musculoskeletal: No Edema (Bilateral pitting edema lower extremities to the knee, 2+)
Skin: Warm and Dry
Neuro: Awake, Alert and Oriented
Psych: Calm
[2025-07-30 11:55] LABS: Glucose - Point of Care 87 mg/dl (70-99)
[2025-07-30] MEDS: HYDROPHOR 1 APPLIC TOPICAL (11:55)
--- NOTE | 2025-07-30 12:22 | CM ---
CM met with patient at bedside. He is being treated for acute on chronic heart failure. He was seen by Pt this am- home PT recommended. Patient plans to return home upon alone upon d/c. He is agreeable to referral to [facility].
Plan: Home upon d/c, referred to [facility]
--- NOTE | 2025-07-30 13:02 | W.PN.UPDATE ---
Update Note
Progress Note Update
HPI: 80 yo man with PMH myasthenia gravis, HTN, HLD, IDDM, CAD s/p CABG, HFpEF (EF 56% 12/12), atrial flutter on Eliquis, TIA/CVA, hypothyroidism, recent admission 04/20-05/01 for myasthenia gravis flare (s/p IV corticosteroids and plasmapheresis),
recent admission for CHF exacerbation 06/10-06/15/25; p/w shortness of breath on exertion, increased lower extremity swelling and weight gain.
A/P:
# Acute on chronic HFpEF
s/p Lasix 60mg IV in ER; patient takes Lasix 80mg and 40mg at home, cont IV Lasix 60 mg BID
Monitor daily weight
Cont PERINATAL DIRECTOR Jardiance (newly started last admit)
Cardiology consulted
# Essential HTN
Cont PERINATAL DIRECTOR Lisinopril, Metoprolol
# Hyperlipidemia
Cont PERINATAL DIRECTOR Lipitor 80mg qhs
# Hx PPM
due for battery exchange in August
# Atrial Flutter
Cont PERINATAL DIRECTOR Eliquis/ Metoprolol
# Myasthenia Gravis
Cont PERINATAL DIRECTOR Prednisone, Pyridostigmine
Azithromycin for PPx
# CAD with hx CABG
# DM
OK for patient to use on insulin pump
# Hx TIA/CVA
PERINATAL DIRECTOR Eliquis/Statin
# Hypothyroidism
PERINATAL DIRECTOR Synthroid
DVT PPx Eliquis
FULL CODE
--- NOTE | 2025-07-30 13:36 | VNURNOTE ---
Home Health Liaison met with patient at bedside to discuss [facility] nurse/therapy, visits, schedule and homebound status. Patient is agreeable and understands that visits at home will be 2-3 x per week to assess and teach medical management. Patient
is aware that [facility] will contact them for start of care within a few days after discharge from . Provided contact number for [facility].
[facility] referral completed in [facility].
--- NOTE | 2025-07-30 14:13 | PN.DE.MGMTRT ---
Insulin Management
- -
07/30/2025 Diabetes Management Consult INSULIN PUMP
80 year old male admitted 07/29 with breathing problem, lower extremity swelling - acute on chronic HFpEF. PMH CAD/ CABG, HTN, HLD, diabetes, chf, myasthenia gravis, afib with pacemaker. Prior to admission was using the medtronic insulin pump,
with novolog and Quick set with Guardian sensor. A1C 04/21/2025 7.1%, cr 1.1, eGFR > 60.
Patient is awake alert and oriented out of bed in chair, able to discuss diabetes care. States he continue to be woken up with low blood sugar at 3AM. Fasting glucose this AM 72. Discussed the best course of action would be to reduce 12AM, 6AM
and 8AM basal rates.
12AM .15
4AM .2
6AM .45
8AM .55
12pm .55
4pm .4
24 hours basal total 9.7 units.
I:CHO ratio 1:12, Sensitivity 1:40, active insulin 2 hours.
Patient is able to manage pump, program and deliver bolus insulin. Will continue insulin pump.
Discussed with nurse
Will follow.
Diabetes History
- -
Type of Diabetes: 1
Pre-Admission Diabetes Regimen
07/30/25
06:22
Creatinine 1.1
Insulin Pump Settings
IP Diabetes Regimen
07/29/25 07/29/25 07/29/25
14:30 16:46 23:00
Glucose
POC Glucose 114 H 107 H 101 H
07/30/25 07/30/25 07/30/25
02:51 06:22 08:00
Glucose 77
POC Glucose 93 72
07/30/25
11:54
Glucose
POC Glucose 87
Meal type: Lunch
Meal type: Breakfast
Meal type: Dinner
Amount consumed: 100%
Amount consumed: 100%
Patient Education
--- NOTE | 2025-07-30 15:54 | W.PN.CARDCBS ---
Addendum entered and electronically signed by Juice Sharma MD 07/30/25 17:13:
I saw and examined the patient.
The Displayer's note was reviewed and I agree with the note.
Comment:
GEN: No distress, awake, Ox3
HEENT: supple, anicteric, mmm
LUNGS: CTA, no wheezes/rales
CV: Reg, S1/S2, 1/6 syst LSB, no gallop
ABD: soft, BS+, NT/ND
EXT: + edema
NEURO: Gross non-focal
SKIN: No rash
Plan:
Remains volume overloaded. Continue Lasix 60 mg IV twice daily. Will attempt to diurese closer to 190 if possible.
Creatinine stable at 1.1
Continue Toprol, lisinopril, and Farxiga. Transition back to Jardiance as outpatient.
Continue Toprol and Eliquis for paroxysmal A-fib. Atrial fibrillation burden has been very low.
Check repeat echo
Original Note:
Today's Communication / Plan
-
Ongoing attempts at diuresis, consider increasing dose to Lasix 80 mg IV BID on Sunday if no appreciable diuresis
Impression / Plan
-
Primary Extender: Dr. Murali Wagner
Assessment:
Presentation with NICHOLAS, LE edema, weight gain 07/29/2025
Acute on chronic HFimpEF
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
CAD status post CABG in 2017
Paroxysmal A-fib
Brief postop A-fib s/p CABG in 2017
Sick sinus syndrome status post Medtronic pacemaker 2010, dependent, scheduled for generator change 08/26/25
Hypertension
Hyperlipidemia
Type 1 diabetes, insulin-dependent
Hypothyroidism
Myasthenia gravis
History of TIA/CVA
Chronic venous insufficiency
Possible prior esophageal stricture treated at [facility]
Former smoker
DNR CODE STATUS
ECHO 4/11/25: EF 56%, trace MR, aortic sclerosis, normal right heart with pacing leads identified, PASP 30 to 35 mmHg
Plan:
-Patient presented with dyspnea on exertion, lower extremity edema, and 10+ pound weight gain over the last several weeks and cardiology consulted for acute HF 07/29/2025.
-Weight is down to 201 lbs using standing scale 07/30/2025, VS reviewed by me. Previous dry weight at discharge on 06/15/2025 was 195 lbs. Dry weight felt to be 190 to 195 lbs.
-Patient is diuresing with Lasix 60 mg IV BID. If there is no appreciable change in weight on 07/31/2025 then would increase to Lasix 80 mg IV BID because patient was taking Lasix 80 mg AM and 40 mg PM PO daily prior to admission.
-EF was 56% by echo 11/28/2024. Recheck echo as it has been greater than 6 months, orders placed by me. Patient has history of ischemic cardiomyopathy with subsequent recovery post CABG
-Outpatient dose of Toprol XL 50 mg daily has been continued
-Outpatient dose of lisinopril 40 mg daily has been continued
-Outpatient dose of Jardiance 10 mg daily was transition to [facility] due to formulary changes in the hospital, but patient should resume his Jardiance 10 mg daily upon discharge to home
-Patient has a Medtronic PPM in place and is scheduled for generator change 08/26/2025. [facility] express completed in ER with AT/AF burden of less than 0.1%, consistent with previous. He has 4 months of battery longevity and is pacemaker dependent.
-Patient has a history of paroxysmal A-fib first seen following CABG in 2017 and overall burden monitored by device checks.
-Outpatient dose of Eliquis 5 mg BID (age 80, Cre 1.1, wt 91.58 kg) has been continued
Progress Note - Extender
Subjective
Date of Service: July 30, 2025
SOB has improved
Objective
Labs:
07/30/25 06:22
07/30/25 06:22
Labs
Hgb 11.8 g/dL (13.0-18.0) L 07/30/25 06:22
Hct 35.7 % (39.0-52.0) L 07/30/25 06:22
Plt Count 166 10^3/uL (130-400) 07/30/25 06:22
Sodium 137 mmol/L (135-145) 07/30/25 06:22
Potassium 3.9 mmol/L (3.5-5.1) 07/30/25 06:22
BUN 31 mg/dl (9-20) H 07/30/25 06:22
Creatinine 1.1 mg/dL (0.7-1.3) 07/30/25 06:22
Glucose 77 mg/dl (70-99) 07/30/25 06:22
Troponins
07/29/25
11:01
Troponin I < 0.012
Vital Signs and I&O:
Vital Signs
Temp Pulse Resp BP Pulse Ox
98.0 F 75 12 107/52 97
07/30/25 15:38 07/30/25 15:38 07/30/25 15:38 07/30/25 15:38 07/30/25 15:38
Vital Signs
Temp Pulse Resp BP Pulse Ox
98.0 F 75 12 107/52 97
07/30/25 15:38 07/30/25 15:38 07/30/25 15:38 07/30/25 15:38 07/30/25 15:38
Intake & Output
07/28/25 07/29/25 07/30/25 07/31/25
06:59 06:59 06:59 06:59
Intake Total 960 / 960
Output Total 1675 / 1675
Balance -715 / -715
Physical Exam
Physical Exam
General: NAD
Heart: AV paced on telemetry
Lungs: RA without audible wheeze
[2025-07-30 16:51] LABS: Glucose - Point of Care 228 mg/dl (70-99)
[2025-07-30] MEDS: PT'S OWN INSULIN PUMP - NovoLOG 4.9 UNIT SC (17:02)
[2025-07-30] MEDS: NON-FORMULARY ITEM 32.4 MG SC (18:13)
[2025-07-30 21:25] LABS: Glucose - Point of Care 73 mg/dl (70-99)
[2025-07-30 23:52] LABS: Glucose - Point of Care 73 mg/dl (70-99)
[2025-07-31 03:20] LABS: Glucose - Point of Care 69 mg/dl (70-99)
[2025-07-31 03:34] LABS: Glucose - Point of Care 69 mg/dl (70-99)
[2025-07-31 03:52] LABS: Glucose - Point of Care 92 mg/dl (70-99)
[2025-07-31 04:02] VITALS: BP 135/76
[2025-07-31 05:51] LABS: Glucose - Point of Care 81 mg/dl (70-99)
[2025-07-31] MEDS: SYNTHROID 125 MCG PO (06:00)
[2025-07-31 07:00] VITALS: BP 116/58
[2025-07-31 07:31] LABS: Glucose - Point of Care 114 mg/dl (70-99)
--- NOTE | 2025-07-31 08:05 | PN.DE.MGMTRT ---
Insulin Management
- -
07/31/2025 Diabetes Management Consult INSULIN PUMP Follow up
80 year old male admitted 07/29 with breathing problem, lower extremity swelling - acute on chronic HFpEF. PMH CAD/ CABG, HTN, HLD, diabetes, chf, myasthenia gravis, afib with pacemaker. Prior to admission was using the medtronic insulin pump,
with novolog and Quick set with Guardian sensor. A1C 04/21/2025 7.1%, cr 1.1, eGFR > 60.
Patient is awake alert and oriented out of bed in chair, able to discuss diabetes care. States he continue to be woken up with low blood sugar at 3AM. Fasting glucose this AM 72. 3AM glucose 69, 5:50 AM glucose 81. Will further reduce ALL
basal rates as glucose was 73 most of day, patient in agreement.
Revised basal rates
12AM .1
4AM .1
6AM .35
8AM .45
12pm .45
4pm .3
24 hours basal total units 7.3
I:CHO ratio 1:12, Sensitivity 1:40, active insulin 2 hours.
Patient is able to manage pump, program and deliver bolus insulin. Will continue insulin pump.
Discussed with nurse
Will follow.
Diabetes History
- -
Type of Diabetes: 1
Pre-Admission Diabetes Regimen
Insulin Pump Settings
IP Diabetes Regimen
07/30/25 07/30/25 07/30/25
11:54 16:49 21:09
POC Glucose 87 228 H 73
07/30/25 07/31/25 07/31/25
23:51 03:18 03:32
POC Glucose 73 69 L 69 L
07/31/25 07/31/25 07/31/25
03:51 05:50 07:29
POC Glucose 92 81 114 H
Meal type: Dinner
Meal type: Lunch
Meal type: Breakfast
Amount consumed: 100%
Amount consumed: 100%
Amount consumed: 100%
Patient Education
[2025-07-31 08:13] LABS: Hematocrit 40.1 % (39.0-52.0); Hemoglobin 12.9 g/dL (13.0-18.0); Mean Corp Hgb Conc. 32.2 g/dL (33.0-37.0); Mean Corpuscular Volume 95.2 fL (80.0-94.0); Nucleated Red Blood Cells % 0 % (-); Platelet Count 185 10^3/uL (130-400); Red Cell Dist. Width 16.2 % (11.5-14.5)
[2025-07-31] MEDS: PT'S OWN INSULIN PUMP - NovoLOG 2.9 UNIT SC (08:27)
[2025-07-31] MEDS: TOPROL XL 50 MG PO (08:28)
[2025-07-31] MEDS: FARXIGA 10 MG PO (08:28)
[2025-07-31 08:29] LABS: ALT (SGPT) 39 U/L (0-50); AST (SGOT) 32 U/L (17-59); Albumin 3.4 g/dl (3.5-5.0); Alkaline Phosphatase 64 U/L (38-126); Blood Urea Nitrogen 38 mg/dl (9-20); Calcium 8.6 mg/dl (8.4-10.2); Carbon Dioxide 30 mmol/L (22-30); Chloride 101 mmol/L (98-107); Estimated Creatinine Clearance 58 ml/min; Glucose 116 mg/dl (70-99); Potassium 4.2 mmol/L (3.5-5.1); Sodium 134 mmol/L (135-145); Total Protein 6.0 g/dl (6.3-8.2); eGFR > 60.00
[2025-07-31] MEDS: BACTROBAN 2% OINTMENT 1 APPLIC TOPICAL (08:29)
[2025-07-31] MEDS: ELIQUIS 5 MG PO (08:29)
[2025-07-31] MEDS: HYDROPHOR 1 APPLIC TOPICAL (08:29)
[2025-07-31] MEDS: MESTINON 60 MG PO ×2 (08:29→13:16)
[2025-07-31] MEDS: LIPITOR 80 MG PO (08:29)
[2025-07-31] MEDS: DELTASONE 30 MG PO (08:29)
[2025-07-31] MEDS: ZITHROMAX 500 MG PO (08:29)
[2025-07-31] MEDS: ZESTRIL 40 MG PO (08:34)
[2025-07-31] MEDS: LASIX 60 MG IV (08:34)
[2025-07-31] MEDS: NON-FORMULARY ITEM 32.4 MG SC (08:41)
--- NOTE | 2025-07-31 09:45 | CARDSERVLU ---
Echocardiogram with [facility]ason completed after protocol screening completed. Allergies verified.
Patent IV site: _R wrist____
IV site flushed with 0.9% NaCl pre and post administration.
Diluted bolus method utilized to enhance visualization of ventricular nichole.
Total volume given: __1.5__ mL
Patient tolerated all procedures well without complications.
[2025-07-31 10:24] VITALS: BMI 30.1
[2025-07-31 11:00] VITALS: BP 127/64
[2025-07-31 11:40] LABS: Glucose - Point of Care 68 mg/dl (70-99)
[2025-07-31] MEDS: PT'S OWN INSULIN PUMP - NovoLOG 5.5 UNIT SC (13:15)
--- NOTE | 2025-07-31 13:20 | W.PN.HOSP.TC ---
Today's Communication/Plan
-
- Echo today per cardiology recommendations
- Plan for discharge today pending echo
Assessment / Plan
Assessment / Plan
#Acute on chronic diastolic congestive heart failure
-Chest x-ray in ED no acute cardiopulmonary process
- Dry weight is 88.6 kg, currently 92 kg today
- I's and O's, daily weight
- Cardiology consulted and following okay for discharge today pending echo review
- Continue IV Lasix per cardiology recommendations
- Patient will get repeat BMP in 1 week
#Sick sinus syndrome s/p pacemaker
- Patient due for pacemaker change in August for battery life
- Cardiology following
#Coronary artery disease s/p CABG
- Continue metoprolol succinate 50 mg daily
- Continue lisinopril 40 mg daily
#Paroxysmal A-fib
- Continue Eliquis
- Continue metoprolol
#Hypertension
- Continue amlodipine, lisinopril, metoprolol
#Hyperlipidemia
- Continue atorvastatin
#Insulin-dependent diabetes
- Continue insulin pump
- Continue Accu-Cheks
#Hypothyroid
- Continue levothyroxine
#Myasthenia gravis
- Continue prednisone and pyridostigmine
- Patient maintained on Soliris as outpatient continue azithromycin for prophylaxis
Anticipated Discharge: Today
Subjective/Interval History
-
Date of Service: July 31, 2025
Patient seen at the bedside this morning. Patient is feeling much better since he arrived. He feels like his breathing is improved and that the swelling is decreasing his legs. Patient is going for an echocardiogram this morning.
Objective Data
-
Labs:
Laboratory Results
07/31/25
06:34
WBC 9.1
Hgb 12.9 L
Hct 40.1
Plt Count 185
Sodium 134 L
Potassium 4.2
Chloride 101
Carbon Dioxide 30
BUN 38 H
Creatinine 1.1
Glucose 116 H
Calcium 8.6
Total Bilirubin 0.8
AST 32
ALT 39
Alkaline Phosphatase 64
Vital Signs:
Vital Signs
Temp Pulse Resp BP Pulse Ox
98.3 F 73 16 127/64 96
07/31/25 11:00 07/31/25 11:00 07/31/25 11:00 07/31/25 11:00 07/31/25 11:00
I&O
07/30/25 07/31/25 08/01/25
06:59 06:59 06:59
Intake Total 960 / 960 1320 / 1320
Output Total 1675 / 1675 2375 / 2375 300 / 300
Balance -715 / -715 -1055 / -1055 -300 / -300
Review of Systems
-
History Source: Patient
Constitutional: Reports No Symptoms
EENT: Reports No Symptoms Reported
Respiratory: Reports No Symptoms
Cardiac: Reports No Symptoms
Abdomen/GI: Reports No Symptoms
Breast: Reports No Symptoms
Genitourinary: Reports No Symptoms
Musculoskeletal: Reports Edema (Bilateral pitting edema)
Skin: Reports No Symptoms
Neuro: Reports No Symptoms
Endocrine: Reports No Symptoms
Hematologic / Lymphatic: Reports No Symptoms
Allergy / Immunology: Reports No Symptoms
Physical Exam
-
General: Well Developed, Well Nourished, No Apparent Distress and Comfortable
HEENT: Normocephalic, Atraumatic and Moist Mucous Membranes
Respiratory: Clear to Auscultation
Cardiac: Regular Rhythm
GI: Soft, Nontender and Nondistended
Musculoskeletal: Other (Bilateral pitting edema lower extremities to the knee, 2+)
Skin: Warm and Dry
Neuro: Awake, Alert and Oriented
Psych: Calm
--- NOTE | 2025-07-31 14:18 | W.PN.UPDATE ---
Addendum entered and electronically signed by Chana Poole MD 08/01/25 11:58:
Total DC time 40 minutes
Original Note:
Update Note
Progress Note Update
Patient seen and discussed with residents.
HPI: 80 yo man with PMH myasthenia gravis, HTN, HLD, IDDM, CAD s/p CABG, HFpEF (EF 56% 12/12), atrial flutter on Eliquis, TIA/CVA, hypothyroidism, recent admission 04/20-05/01 for myasthenia gravis flare (s/p IV corticosteroids and plasmapheresis),
recent admission for CHF exacerbation 06/10-06/15/25; p/w shortness of breath on exertion, increased lower extremity swelling and weight gain.
A/P:
# Acute on chronic HFpEF
LENS GRINDER ROUGH patient takes Lasix 80mg and 40mg at home; he received IV Lasix 60 mg BID while in the hospital, and was discharged with oral Lasix 80 mg twice daily
His echo showed
1. Left ventricular ejection fraction is normal with an ejection fraction of 59 % by Hunt's biplane method of discs.
2. Normal left ventricular size, wall thickness and systolic function. No regional wall motion abnormalities are seen.
3. Compared to a prior transthoracic echocardiogram study from November 2024 no significant changes are seen.
4. Mild to moderate tricuspid regurgitation. Estimated pulmonary artery pressure of 27 mmHg assuming a right atrial pressure of 3 mmHg.
# Essential HTN
Cont LENS GRINDER ROUGH Lisinopril, Metoprolol
# Hyperlipidemia
Cont LENS GRINDER ROUGH Lipitor 80mg qhs
# Hx PPM
due for battery exchange in August
# Atrial Flutter
Cont LENS GRINDER ROUGH Eliquis/ Metoprolol
# Myasthenia Gravis
Cont LENS GRINDER ROUGH Prednisone, Pyridostigmine
Azithromycin for PPx
# CAD with hx CABG
# DM
OK for patient to use on insulin pump
# Hx TIA/CVA
LENS GRINDER ROUGH Eliquis/Statin
# Hypothyroidism
LENS GRINDER ROUGH Synthroid
DVT PPx Eliquis
FULL CODE
--- NOTE | 2025-07-31 14:20 | W.PN.CARDCBS ---
Today's Communication / Plan
-
Changed to Lasix 80 mg p.o. twice daily and discharge
Impression / Plan
-
Primary Pointer Machine Operator: Dr. Murali Wagner
Assessment:
Presentation with NICHOLAS, LE edema, weight gain 07/29/2025
Acute on chronic HFimpEF
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
CAD status post CABG in 2017
Paroxysmal A-fib
Brief postop A-fib s/p CABG in 2017
Sick sinus syndrome status post Medtronic pacemaker 2010, dependent, scheduled for generator change 08/26/25
Hypertension
Hyperlipidemia
Type 1 diabetes, insulin-dependent
Hypothyroidism
Myasthenia gravis
History of TIA/CVA
Chronic venous insufficiency
Possible prior esophageal stricture treated at [facility]
Former smoker
DNR CODE STATUS
ECHO 11/28/24: EF 56%, trace MR, aortic sclerosis, normal right heart with pacing leads identified, PASP 30 to 35 mmHg
Echocardiogram 07/31/2025: Ejection fraction 59%, mild to moderate TR PA systolic of 27 mmHg
Plan:
Although he may not be at dry weight he is much improved and feels well. He is on room air and ambulating without issues.
Stable cardiology status for discharge
Will change to Lasix 80 mg p.o. twice daily and arrange follow-up
Discussed with primary service
-Patient has a Medtronic PPM in place and is scheduled for generator change 08/26/2025. [facility] express completed in ER with AT/AF burden of less than 0.1%, consistent with previous. He has 4 months of battery longevity and is pacemaker dependent.
-Patient has a history of paroxysmal A-fib first seen following CABG in 2016 and overall burden monitored by device checks.
-Outpatient dose of Eliquis 5 mg BID (age 80, Cre 1.1, wt 91.58 kg) has been continued
Progress Note - Pointer Machine Operator
Subjective
Date of Service: July 31, 2025
No complaints
Objective
Labs:
07/31/25 06:34
07/31/25 06:34
Labs
Hgb 12.9 g/dL (13.0-18.0) L 07/31/25 06:34
Hct 40.1 % (39.0-52.0) 07/31/25 06:34
Plt Count 185 10^3/uL (130-400) 07/31/25 06:34
Sodium 134 mmol/L (135-145) L 07/31/25 06:34
Potassium 4.2 mmol/L (3.5-5.1) 07/31/25 06:34
BUN 38 mg/dl (9-20) H 07/31/25 06:34
Creatinine 1.1 mg/dL (0.7-1.3) 07/31/25 06:34
Glucose 116 mg/dl (70-99) H 07/31/25 06:34
Troponins
07/29/25
11:01
Troponin I < 0.012
Vital Signs and I&O:
Vital Signs
Temp Pulse Resp BP Pulse Ox
98.3 F 73 16 127/64 96
07/31/25 11:00 07/31/25 11:00 07/31/25 11:00 07/31/25 11:00 07/31/25 11:00
Vital Signs
Temp Pulse Resp BP Pulse Ox
98.3 F 73 16 127/64 96
07/31/25 11:00 07/31/25 11:00 07/31/25 11:00 07/31/25 11:00 07/31/25 11:00
Intake & Output
07/29/25 07/30/25 07/31/25 08/01/25
06:59 06:59 06:59 06:59
Intake Total 960 / 960 1320 / 1320
Output Total 1675 / 1675 2375 / 2375 300 / 300
Balance -715 / -715 -1055 / -1055 -300 / -300
Physical Exam
Physical Exam
General: Well developed, well nourished in NAD.
Neck: Supple, no JVD, HJR, carotids +2 B/L, no bruits bilaterally.
Heart: Non displaced PMI, RRR, no murmurs, No S3, S4, no rubs.
Lungs: Clear to auscultation bilaterally, no wheeze, rhonchi, rubs bilaterally,
normal expiratory phase.
Extremities: No clubbing, cyanosis or edema bilaterally.
Neuro: Grossly nonfocal, awake, alert and oriented x3.
--- NOTE | 2025-07-31 14:50 | CM ---
Chart reviewed. Patient will discharge home today
[facility] accepted for services
Met w/ patient bedside, updated that he is stable for discharge. Patient inquiring about cardiology follow up from this morning, CM stated cardiology cleared him for discharge.
IMM verbally reviewed, copy provided, copy on chart
Patient's son will transport home
[facility]

Plan: Home w/ [facility]
[2025-07-31 15:00] VITALS: BP 147/80
--- NOTE | 2025-07-31 16:27 | W.DCSUMMARY ---
Documented by User: Marilyn Mensah DO, Resident 07/31/25 16:38
Discharge Summary
Discharge Data
Date of Admission: 07/29/25
Date of Discharge: 07/31/25
-
Pending Results: No
Hospital Course
Primary diagnosis: Acute on chronic congestive heart failure exacerbation
Secondary diagnosis: Sick sinus syndrome status post pacemaker, coronary artery disease status post CABG, paroxysmal A-fib, hypertension, hyperlipidemia, insulin-dependent diabetes
Hospital course:
Patient is a 80-year-old male with PMH significant for myasthenia gravis, hypertension, hyperlipidemia, insulin-dependent diabetes, CAD s/p CABG, HFpEF (EF 56% 12/12), atrial flutter on Eliquis, TIA/CVA, hypothyroidism, recent admission for
myasthenia gravis flare, recent admission for CHF exacerbation 06/10 to 06/15 who presented to the ED with shortness of breath on exertion, increased lower extremity swelling and weight gain. Patient reported that he been steadily gaining weight
since he was discharged from the hospital 6 weeks ago. He started to experience weeping in his legs from the edema buildup. In the ED, chest x-ray showed no acute cardiopulmonary process, blood work unremarkable. proBNP in the low 300 range,
however historically patient always has low BNP. Troponin negative. Cardiology was consulted and patient was started on IV diuresis with Lasix.
Over the course of admission, cardiology manage patient's diuresis. Cardiology also ordered repeat echo which showed an EF of 59%. Patient's lower extremity edema and shortness of breath improved with diuresis. After 2 days of diuresis,
cardiology deemed patient ready for discharge from a fluid standpoint, with an updated outpatient Lasix dose of 80 mg twice daily. Patient will follow-up outpatient with cardiology.
Patient ready for discharge today.
Imaging:
07/29/2025 chest x-ray
IMPRESSION:
Markedly low lung volumes.
No focal parenchymal opacification to suggest pneumonia.
07/31/2025 echocardiogram
SUMMARY
1. Left ventricular ejection fraction is normal with an ejection fraction of 59 % by Hunt's biplane method of discs.
2. Normal left ventricular size, wall thickness and systolic function. No regional wall motion abnormalities are seen.
3. Compared to a prior transthoracic echocardiogram study from November 2024 no significant changes are seen.
4. Mild to moderate tricuspid regurgitation. Estimated pulmonary artery pressure of 27 mmHg assuming a right atrial pressure of 3 mmHg.
Discharge Plan
-
Patient Disposition: Home with Home Care
Discharge Diagnosis/Procedures: Acute on Chronic heart failure
Sick sinus syndrome status post pacemaker
Coronary artery disease
Paroxysmal atrial fibrillation
Hypertension
Hyperlipidemia
Hypothyroidism
Insulin-dependent diabetes
Condition: Good
Diet: Low Fat, Low Cholesterol and Restrict fluids to 64 oz
Activity: No restrictions
Driving Restrictions: As prior to admission
Bathing Restrictions: None
Blood Work: BMP in one week
Other Services: VN
Activity Restrictions/Additional Instructions:
Wound Care Instructions Right lower leg blister- Clean with normal saline or soap and water. Apply adaptic and dry dressing such a silicone border foam. Change Q48 hours and PRN drainage.
Right Great Toe Wound- Clean with normal saline or soap and water and apply Bactroban ointment and silicone border foam. Change daily.
Follow up with your data processing equipment repairer as scheduled
Mineral oil or other moisturizer to dry skin on LE daily
Compression daily and ordered by your Physician
Cardiology:
Your Lasix is being increased to 80 mg twice daily
Please get blood work completed in 1 week: Basic metabolic panel (BMP)
Please follow-up with cardiology�visit scheduled for 08/14/2025 at 9:40 AM
Instructions: *DCA Heart Failure Instructions
Referrals:
Gary Norton MD [Family Provider, Family Practice]
Lanie Be CRNP [Specified Professional Personl, Cardiology] - 08/14/25 9:40 am
Referral Note: You have a follow-up appointment with BERTIN Solomon, Dr. Wagner's nurse practitioner, at the [facility] office. Please call if questions.
Additional Discharge Medication Instructions: Continue taking Lasix at 80 mg twice daily going forward, and follow-up with solar pv installer outpatient
Prescriptions:
New
(DME) BMP
See Rx Instructions .Route .MEDSUPPLY Qty: 1 0RF
Rx Instructions:
DX: CHF
Basic Metabolic Panel (BMP)
Please send results to PCP and [employer] [facility] [employer]
furosemide [Lasix] 80 mg tablet
80 mg PO BID Qty: 60 0RF
Continued
atorvastatin 80 MG tablet
80 mg PO DAILY
metoprolol succinate 50 mg Tablet Extended Release 24 Hr
50 mg PO DAILY
pyridostigmine bromide 60 mg tablet
60 mg PO TID@08,12,17
levothyroxine 125 mcg tablet
125 mcg PO DAILY@06
azithromycin 500 mg tablet
500 mg PO DAILY
prednisone 20 mg tablet
30 mg PO DAILY
Eliquis 5 mg tablet
5 mg PO BID Qty: 14 0RF
Jardiance 10 mg tablet
10 mg PO DAILY Qty: 30 1RF
acetaminophen [Tylenol] 325 mg Tablet
650 mg PO Q6HPRN PRN (Reason: mild pain)
lisinopril 40 mg Tablet
40 mg PO DAILY
Patient Own Insulin Pump
1 sliding scale dose SC .VIA NOVOLOG
Zilbrysq 32.4 mg/0.81 mL Syringe
32.4 mg SC DAILY
Discontinued
furosemide [Lasix] 20 mg Tablet
120 mg PO DAILY
Discharge Orders:
Discharge Patient (As Directed); Ordered 07/31/25
Ordered By: Marilyn Mensah
Discharge Date and Time
Discharge Date/Time: 07/31/25 16:49
Print Language: KOREAN

Documented by User: Chana Poole MD 08/01/25 11:57
Discharge Summary
Discharge Data
Date of Admission: 07/29/25
Date of Discharge: 07/31/25
Hospital Course
Primary diagnosis: Acute on chronic congestive heart failure exacerbation
Secondary diagnosis: Sick sinus syndrome status post pacemaker, coronary artery disease status post CABG, paroxysmal A-fib, hypertension, hyperlipidemia, insulin-dependent diabetes
Hospital course:
Patient is a 80-year-old male with PMH significant for myasthenia gravis, hypertension, hyperlipidemia, insulin-dependent diabetes, CAD s/p CABG, HFpEF (EF 56% 12/12), atrial flutter on Eliquis, TIA/CVA, hypothyroidism, recent admission for
myasthenia gravis flare, recent admission for CHF exacerbation 06/10 to 06/15 who presented to the ED with shortness of breath on exertion, increased lower extremity swelling and weight gain. Patient reported that he been steadily gaining weight
since he was discharged from the hospital 6 weeks [facility]. He started to experience weeping in his legs from the edema buildup.
In the ED, chest x-ray showed no acute cardiopulmonary process, blood work unremarkable. proBNP in the low 300 range, however historically patient always has low BNP. Troponin negative. Cardiology was consulted and patient was started on IV
diuresis with Lasix.
Over the course of admission, cardiology manage patient's diuresis. Cardiology also ordered repeat echo which showed an EF of 59%. Patient's lower extremity edema and shortness of breath improved with diuresis. After 2 days of diuresis,
cardiology deemed patient ready for discharge from a fluid standpoint, with an updated outpatient Lasix dose of 80 mg twice daily. Patient to follow-up outpatient with cardiology.
Imaging:
07/29/2025 chest x-ray
IMPRESSION:
Markedly low lung volumes.
No focal parenchymal opacification to suggest pneumonia.
07/31/2025 echocardiogram
SUMMARY
1. Left ventricular ejection fraction is normal with an ejection fraction of 59 % by Hunt's biplane method of discs.
2. Normal left ventricular size, wall thickness and systolic function. No regional wall motion abnormalities are seen.
3. Compared to a prior transthoracic echocardiogram study from November 2024 no significant changes are seen.
4. Mild to moderate tricuspid regurgitation. Estimated pulmonary artery pressure of 27 mmHg assuming a right atrial pressure of 3 mmHg.
Discharge Plan
-
Patient Disposition: Home with Home Care
Discharge Diagnosis/Procedures: Acute on Chronic heart failure
Sick sinus syndrome status post pacemaker
Coronary artery disease
Paroxysmal atrial fibrillation
Hypertension
Hyperlipidemia
Hypothyroidism
Insulin-dependent diabetes
Condition: Good
Diet: Low Fat, Low Cholesterol and Restrict fluids to 64 oz
Activity: No restrictions
Driving Restrictions: As prior to admission
Bathing Restrictions: None
Blood Work: BMP in one week
Other Services: VN
Activity Restrictions/Additional Instructions:
Wound Care Instructions Right lower leg blister- Clean with normal saline or soap and water. Apply adaptic and dry dressing such a silicone border foam. Change Q48 hours and PRN drainage.
Right Great Toe Wound- Clean with normal saline or soap and water and apply Bactroban ointment and silicone border foam. Change daily.
Follow up with your data processing equipment repairer as scheduled
Mineral oil or other moisturizer to dry skin on LE daily
Compression daily and ordered by your Physician
Cardiology:
Your Lasix is being increased to 80 mg twice daily
Please get blood work completed in 1 week: Basic metabolic panel (BMP)
Please follow-up with cardiology�visit scheduled for 08/14/2025 at 9:40 AM
Instructions: *DCA Heart Failure Instructions
Referrals:
Gary Norton MD [Family Provider, Family Practice]
Lanie Be CRNP [Specified Professional Personl, Cardiology] - 08/14/25 9:40 am
Referral Note: You have a follow-up appointment with BERTIN Solomon, Dr. Wagner's nurse practitioner, at the [facility] office. Please call if questions.
Additional Discharge Medication Instructions: Continue taking Lasix at 80 mg twice daily going forward, and follow-up with solar pv installer outpatient
Prescriptions:
New
(DME) BMP
See Rx Instructions .Route .MEDSUPPLY Qty: 1 0RF
Rx Instructions:
DX: CHF
Basic Metabolic Panel (BMP)
Please send results to PCP and [employer]
furosemide [Lasix] 80 mg tablet
80 mg PO BID Qty: 60 0RF
Continued
atorvastatin 80 MG tablet
80 mg PO DAILY
metoprolol succinate 50 mg Tablet Extended Release 24 Hr
50 mg PO DAILY
pyridostigmine bromide 60 mg tablet
60 mg PO TID@08,12,17
levothyroxine 125 mcg tablet
125 mcg PO DAILY@06
azithromycin 500 mg tablet
500 mg PO DAILY
prednisone 20 mg tablet
30 mg PO DAILY
Eliquis 5 mg tablet
5 mg PO BID Qty: 14 0RF
Jardiance 10 mg tablet
10 mg PO DAILY Qty: 30 1RF
acetaminophen [Tylenol] 325 mg Tablet
650 mg PO Q6HPRN PRN (Reason: mild pain)
lisinopril 40 mg Tablet
40 mg PO DAILY
Patient Own Insulin Pump
1 sliding scale dose SC .VIA NOVOLOG
Zilbrysq 32.4 mg/0.81 mL Syringe
32.4 mg SC DAILY
Discontinued
furosemide [Lasix] 20 mg Tablet
120 mg PO DAILY
Discharge Orders:
Discharge Patient (As Directed); Ordered 07/31/25
Ordered By: Marilyn Mensah
Discharge Date and Time
Discharge Date/Time: 07/31/25 16:49
Print Language: KOREAN
== END 2025-07-31 16:49 | disposition home health service (06) | DRG 291 ==
LOC: 4 WEST ACU 14:43
PROVIDERS: Clinical Nurse Specialist Family Health; ADMITTING PHYSICIAN Student in an Organized Health Care Education/Training Program; ATTENDING PHYSICIAN Internal Medicine; CONSULT PHYSICIAN Internal Medicine Cardiovascular Disease; EMERGENCY PHYSICIAN Emergency Medicine; FAMILY PHYSICIAN Family Medicine
DX: I11.0 Hypertensive heart disease with heart failure (principal); I50.33 Acute on chronic diastolic (congestive) heart failure; I48.92 Unspecified atrial flutter; Z95.1 Presence of aortocoronary bypass graft; Z95.0 Presence of cardiac pacemaker; I49.5 Sick sinus syndrome; I48.0 Paroxysmal atrial fibrillation; E78.00 Pure hypercholesterolemia, unspecified; E10.9 Type 1 diabetes mellitus without complications; Z79.4 Long term (current) use of insulin; Z96.41 Presence of insulin pump (external) (internal); Z79.890 Hormone replacement therapy; Z79.899 Other long term (current) drug therapy; Z79.01 Long term (current) use of anticoagulants; Z79.84 Long term (current) use of oral hypoglycemic drugs; E03.9 Hypothyroidism, unspecified; G70.00 Myasthenia gravis without (acute) exacerbation; Z86.73 Personal history of transient ischemic attack (TIA), and cerebral infarction without residual deficits; I87.2 Venous insufficiency (chronic) (peripheral); Z87.891 Personal history of nicotine dependence; Z66 Do not resuscitate; I07.1 Rheumatic tricuspid insufficiency; I25.10 Atherosclerotic heart disease of native coronary artery without angina pectoris; Z83.3 Family history of diabetes mellitus; Z91.148 Patient's other noncompliance with medication regimen for other reason; Z96.651 Presence of right artificial knee joint
CPT/HCPCS: 71046; 80053; 82962; 83735; 83880; 84484; 85025; 93005; 93308; 96374; 97162; 99285; Q9950

== ENCOUNTER 2025-08-03 17:21 | Inpatient (IN) | payer OTHER, SELFPAY ==
[2025-08-03] VITALS (13 sets, daily range): BP systolic 110–149; BP diastolic 63–83; BMI 28.6; BMI 27.4
[2025-08-03 12:26] LABS: Urine Character Clear (Clear)
--- NOTE | 2025-08-03 12:34 | ED.GENMED ---
History of Present Illness
<Power Marie DO, Resident - Last Filed: 08/03/25 16:10>
General
Chief Complaint: Weakness
Source: patient
Exam Limitations: none
Time Seen by Provider: 08/03/25 12:07
Nursing documentation reviewed up to this point in time: agreed with
History of Present Illness
History of Present Illness:
80-year-old male with a past medical history of metastatic gravis, hypertension, hyperlipidemia, IDDM, CAD, HFpEF, atrial flutter, TIA, CVA, hypothyroidism, and recent admission was discharged on 07/31 for acute on chronic heart failure with
preserved ejection fraction, after which patient's Lasix dose was increased to 80 mg twice daily. Patient said he was feeling well for the days following this admission, and then woke up this morning with weakness. Patient states that he started
feeling more weak as the morning went on, and called EMS. Patient endorses chronic dyspnea on exertion, but this feeling of weakness was different. Patient also endorses bilateral lower extremity edema that is unchanged from previous admission, and
has not gotten worse. Currently in the ED, patient states that his subjective weakness is mostly subsided. Otherwise, patient denies headache, dizziness, visual changes, upper respiratory symptoms, chest pain, shortness of breath, abdominal pain,
nausea, vomiting, diarrhea, constipation, urinary symptoms.
Past History
<Jcarlos Todd MD - Last Filed: 08/03/25 13:36>
Past History
ED Past Medical History: Arrthythmia (SA node dysfunction), CAD, HTN, Hypercholesterolemia, IDDM, Hypothyroidism and Other (Cricopharyngeus bar, Myasthenia Gravis)
ED Past Surgical History: Cardiac (medtronic pacemaker 2007) and Other
Social History
Tobacco: Non-smoker
Alcohol: None
Drug: None
Personal: Other
Living: alone
Employment: Retired
Family History
Family History: Other (Sister with diabetes)
Review of Systems
<Power Marie DO, Resident - Last Filed: 08/03/25 16:10>
Review of Systems
Allergies reviewed?: Yes
All Other Systems: ROS reviewed and negative except as documented in HPI and ROS
Phy Exam
<Power Marie DO, Resident - Last Filed: 08/03/25 16:10>
Physical Exam
Physical Exam:
General: Well-appearing elderly male that is in no acute distress
HEENT: Normocephalic atraumatic
Neck: No JVD
CV: Regular rate and rhythm, no murmurs, no rubs, no gallops.
Lungs: Clear to auscultation in the left lung field. Decreased breath sounds in the right, particularly from the middle of the lung down to the base.
MSK: No clubbing, no cyanosis. 2+ bilateral lower extremity pitting edema with venous stasis dermatitis and weeping. There is 6 mm x 4 cm superficial abrasion on the anterior aspect of the left harley.
Neuro: AAO X3, moving all 4 EXTR.
Psych: Calm, normal affect
Scores
<Power Marie DO, Resident - Last Filed: 08/03/25 16:10>
Heart Failure Risk
Heart Failure Risk Score: Not Applicable
Heart Score for Chest Pain Patients
STEMI patient?: Not applicable
Withdrawal Assessment of Alcohol
Withdrawal Assessment Completed?: Not applicable
Course
<Power Marie DO, Resident - Last Filed: 08/03/25 16:10>
Orders/Labs/Results
Orders:
Orders
08/03/25 11:53
Electrocardiogram (*1) Urgent
Reason for Study: Fatigue / Weakness
EKG- Treatment ONCE
08/03/25 12:12
Urinalysis Reflex To Culture Urgent
Date Specimen was Collected: 08/03/25
Time Specimen was Collected: 12:09
08/03/25 12:30
Interrogate Pacemaker- Treatment ONCE
08/03/25 12:34
CR Chest - 2 Views Urgent
Comment:
Reason For Exam: Dyspnea on Exertion
08/03/25 12:39
COVID-19 Antigen Urgent
Source: Nasal Swab
Influenza A+B Rapid Molecular Urgent
RON Source: Nasal Swab
Specimen Description:
08/03/25 12:40
NT-proBNP Urgent
08/03/25 13:32
CARDIOLOGY CONSULT Urgent
Consulting Provider: Nico Ramos
Was physician already notified: Yes
08/03/25 14:36
Complete Blood Count/No Diff Urgent
Comprehensive Metabolic Panel Urgent
08/03/25 15:53
Furosemide [Lasix] 40 mg IV NOW STA
08/03/25 15:55
Furosemide [Lasix] 80 mg IV NOW STA
Abnormal Lab Results
08/03/25 08/03/25
12:12 14:36
RBC 4.05 L 10^6/uL
(4.70-6.10)
Hgb 12.8 L g/dL
(13.0-18.0)
Hct 38.5 L %
(39.0-52.0)
MCV 95.1 H fL
(80.0-94.0)
MCH 31.6 H pg
(27.0-31.0)
RDW 15.9 H %
(11.5-14.5)
BUN 41 H mg/dl
(9-20)
Glucose 105 H mg/dl
(70-99)
Urine Glucose 3+ A
(Negative)
08/03/25 14:36
08/03/25 14:36
Vital Signs
Initial and Last Documented VS:
Initial Vital Signs
Temp Pulse Resp BP Pulse Ox
98.6 F 72 18 137/71 97
08/03/25 11:48 08/03/25 11:48 08/03/25 11:48 08/03/25 11:48 08/03/25 11:48
Last Documented Vital Signs
Temp Pulse Resp BP Pulse Ox
98.2 F 72 20 120/67 95
08/03/25 15:02 08/03/25 15:02 08/03/25 15:02 08/03/25 15:02 08/03/25 15:02
<Jcarlos Todd MD - Last Filed: 08/03/25 13:36>
Orders/Labs/Results
Orders:
Orders
08/03/25 11:53
Electrocardiogram (*1) Urgent
Reason for Study: Fatigue / Weakness
EKG- Treatment ONCE
08/03/25 12:12
Urinalysis Reflex To Culture Urgent
Date Specimen was Collected: 08/03/25
Time Specimen was Collected: 12:09
08/03/25 12:30
Interrogate Pacemaker- Treatment ONCE
08/03/25 12:34
CR Chest - 2 Views Urgent
Comment:
Reason For Exam: Dyspnea on Exertion
08/03/25 12:39
COVID-19 Antigen Urgent
Source: Nasal Swab
Influenza A+B Rapid Molecular Urgent
RON Source: Nasal Swab
Specimen Description:
08/03/25 12:40
NT-proBNP Urgent
08/03/25 13:32
CARDIOLOGY CONSULT Urgent
Consulting Provider: Nico Ramos
Was physician already notified: Yes
08/03/25 14:36
Complete Blood Count/No Diff Urgent
Comprehensive Metabolic Panel Urgent
08/03/25 15:53
Furosemide [Lasix] 40 mg IV NOW STA
08/03/25 15:55
Furosemide [Lasix] 80 mg IV NOW STA
Abnormal Lab Results
08/03/25 08/03/25
12:12 14:36
RBC 4.05 L 10^6/uL
(4.70-6.10)
Hgb 12.8 L g/dL
(13.0-18.0)
Hct 38.5 L %
(39.0-52.0)
MCV 95.1 H fL
(80.0-94.0)
MCH 31.6 H pg
(27.0-31.0)
RDW 15.9 H %
(11.5-14.5)
BUN 41 H mg/dl
(9-20)
Glucose 105 H mg/dl
(70-99)
Urine Glucose 3+ A
(Negative)
08/03/25 14:36
08/03/25 14:36
Vital Signs
Initial and Last Documented VS:
Initial Vital Signs
Temp Pulse Resp BP Pulse Ox
98.6 F 72 18 137/71 97
08/03/25 11:48 08/03/25 11:48 08/03/25 11:48 08/03/25 11:48 08/03/25 11:48
Last Documented Vital Signs
Temp Pulse Resp BP Pulse Ox
98.2 F 72 20 120/67 95
08/03/25 15:02 08/03/25 15:02 08/03/25 15:02 08/03/25 15:02 08/03/25 15:02
<Power Marie DO, Resident - Last Filed: 08/03/25 16:10>
MDM/Problems Addressed
Differential Diagnosis Includes:
Acute on Chronic HFpEF, dehydration secondary to overdiuresis, electrolyte imbalance secondary to increased diuretic dose, viral illness
MDM/Problems Addressed:
80-year-old male with extensive cardiac history and recent history of admission (discharged 07/31/2025) where patient was treated for acute on chronic HFpEF and Lasix dose was increased to 80 mg twice daily. He presented with a feeling of
subjective weakness starting this morning. Otherwise denies any acute complaints. Will get CBC to rule out anemia, CMP to rule out electrolyte abnormalities in the setting of recent diuretic dose change, urinalysis to rule out urinary tract
infections, COVID and flu swabs. Chest x-ray and BMP to evaluate for CHF course. EKG paced, PM interrogate. Cardiology was consulted given recent hospital course, and they agree that patient is in acute HF, and advise patient should be admitted.
Hospitalist made aware.
Chronic conditions affecting care: DM, HTN and CAD
<Power Marie DO, Resident - Last Filed: 08/03/25 16:10>
*Pulse Oximetry
Patient hypoxic: no
*Critical Care Note
Total Time (30-74mins, 75-104mins- exclusive of procedures): Not Applicable
<Jcarlos Todd MD - Last Filed: 08/03/25 13:36>
*Pulse Oximetry
SaO2: 97
Oxygen Mode of Delivery: Room air
ED Attending Note
<Jcarlos Todd MD - Last Filed: 08/03/25 13:36>
ED Attending Note
Patient seen and examined by attending physician: Yes
I performed a history and physical exam of patient and discussed management with resident, I reviewed resident's note and agree with documented findings and plan of care.: Yes
ED Attending Note:
I have seen and evaluated the patient with a [id number] encounter. I have spoken to the resident and involved in the medical history, the physical exam, medical decision making.
Evaluation and management service: agree unless noted differently below.
Results interpretation: agree unless noted differently below.
Focused HPI: 80-year-old male with a past medical history of hypertension, hyperlipidemia, CAD status post CABG, atrial fibrillation, permanent pacemaker, insulin-dependent diabetic on insulin pump, CHF who presents to the emergency department from
home via EMS for evaluation of increased weakness, exertional dyspnea, increased swelling in the legs and weight gain. Patient was notably just admitted to this hospital for CHF exacerbation and discharged 07/31/2025. His normal animal anatomist is
Dr. Wagner. On discharge his Lasix was increased to 80 mg twice daily. Despite compliance with his regimen he says he has had increased swelling in the legs, increased weight gain since discharge and having progressive exertional dyspnea. No
dyspnea at rest. No chest pain. He has chronic cough no acute change. No fever or chills. He denies any other acute complaints.
Physical exam: Awake and alert, not in distress. He is normotensive, heart rate in the 70s, no tachypnea or hypoxia, no fever. Breath sounds are diminished at the bases bilaterally but no wheezing or rales appreciated. No JVD appreciated. He
does have marked edema in the legs bilaterally +2 pitting. He has 3 kg weight gain from discharge weight.
Medical Decision Makin-year-old male who was recently admitted for CHF exacerbation and discharged on increased diuretic returns to the emergency department for increased weakness, weight gain, leg swelling arms exertional dyspnea. Vitals and
exam are as above. Overall suspect likely volume overload/CHF; fortunately he is normotensive, not hypoxic or tachypneic. His initial chest x-ray shows no laura edema looks similar to prior. Will check labs, proBNP. EKG paced will interrogate
device. Will discuss the case with cardiology for consultation given worsening symptoms despite increased diuretic and recent hospitalization.
-
Portions of this chart may have been created with voice recognition software.� Occasional wrong word or��sound alike� substitutions may have occurred due to the inherent limitations of voice recognition software.
Discharge Plan
Departure
Patient Disposition: Admit
Date of Disposition: 08/03/25
Time of Disposition: 15:52
Admit to doctor: Cheryl
Presentation/result/management discussed w/ accepting MD/DO: Hospitalist
Discharge Problem:
CHF exacerbation
Prescriptions:
No Action
atorvastatin 80 MG tablet
80 mg PO DAILY
metoprolol succinate 50 mg Tablet Extended Release 24 Hr
50 mg PO DAILY
pyridostigmine bromide 60 mg tablet
60 mg PO TID@08,12,17
levothyroxine 125 mcg tablet
125 mcg PO DAILY@06
azithromycin 500 mg tablet
500 mg PO DAILY
prednisone 20 mg tablet
30 mg PO DAILY
Rx Instructions:
started 07/04/25 for a 30 day supply (pt still states he has a supply) - [facility]
Eliquis 5 mg tablet
5 mg PO BID Qty: 14 0RF
Jardiance 10 mg tablet
10 mg PO DAILY Qty: 30 1RF
lisinopril 40 mg Tablet
40 mg PO DAILY
Zilbrysq 32.4 mg/0.81 mL Syringe
32.4 mg SC DAILY
furosemide [Lasix] 80 mg tablet
80 mg PO BID
Patient Own Insulin Pump
1 sliding scale dose SC .VIA NOVOLOG
Referrals:
Gary Norton MD [Family Provider, Family Practice]
Interventions
Interventions:
*General Assessment Last Done: 08/03/25 11:48
*Neglect/Abuse Screening Last Done: 08/03/25 11:48
*ED COVID-19 Vaccine History Last Done: 08/03/25 14:22
*ED Influenza Vaccine History Last Done: 08/03/25 14:22
[facility] Fall Risk Assessment Tool Last Done: 08/03/25 11:48
ED- Cardiac Assessment Last Done: 08/03/25 11:48
ED- Neurological Assessment Last Done: 08/03/25 11:48
ED- Pulmonary Assessment Last Done: 08/03/25 11:48
Discharge Date and Time
Print Language: IRAQI
[2025-08-03 13:16] LABS: COVID-19 Antigen Negative (Negative)
[2025-08-03 14:48] LABS: Hematocrit 38.5 % (39.0-52.0); Hemoglobin 12.8 g/dL (13.0-18.0); Mean Corp Hgb Conc. 33.2 g/dL (33.0-37.0); Mean Corpuscular Volume 95.1 fL (80.0-94.0); Platelet Count 153 10^3/uL (130-400); Red Cell Dist. Width 15.9 % (11.5-14.5)
[2025-08-03 15:03] LABS: ALT (SGPT) 40 U/L (0-50); AST (SGOT) 40 U/L (17-59); Albumin 4.0 g/dl (3.5-5.0); Alkaline Phosphatase 73 U/L (38-126); Blood Urea Nitrogen 41 mg/dl (9-20); Calcium 8.4 mg/dl (8.4-10.2); Carbon Dioxide 30 mmol/L (22-30); Chloride 103 mmol/L (98-107); Estimated Creatinine Clearance 52 ml/min; Glucose 105 mg/dl (70-99); Potassium 4.4 mmol/L (3.5-5.1); Sodium 137 mmol/L (135-145); Total Protein 6.4 g/dl (6.3-8.2); eGFR > 60.00
--- NOTE | 2025-08-03 15:05 | CON.CAR ---
Addendum entered and electronically signed by Nico Ramos MD 08/03/25 19:43:
80-year-old man readmitted with weakness in the setting of myasthenia gravis. He had been admitted 07/29/2025 with HFpEF, preceding that had another hospital stay 06/10/2025 for the same. Discharged on 07/31/2025. Following discharge, he became
progressively more weak this morning, with some dyspnea on exertion.
PMH: CABG 2017, perioperative A-fib, ischemic cardiomyopathy with subsequent improved EF, heart failure with improved EF, Medtronic pacemaker 2010, for generator change in August, hypertension, hyperlipidemia, diabetes, hypothyroidism, myasthenia
gravis, history of TIA/CVA, venous insufficiency, possible esophageal stricture
PSH: Former smoker, lives alone, retired
Medications at discharge 07/31/2025: Atorvastatin 80 mg a day, azithromycin 500 daily, Eliquis 5 mg twice daily, furosemide 80 mg twice daily, Jardiance 10 mg daily, levothyroxine 125 mcg daily, lisinopril 40 mg a day, metoprolol succinate 50 mg a
day, insulin pump, prednisone 30 mg a day, pyridostigmine, Zilbrysq
Rest of history, assessments, findings as below. Reviewed in detail and agree unless otherwise specified.
Weight is 95.7 kg, was 92.4 kg at discharge, 120/67 respiratory rate 20, sats are 95%, pleasant, head neck exam unremarkable lungs are relatively clear, regular rate and rhythm, no obvious murmur, neck veins difficult to assess, but elevated,
abdomen obese, erythema over both legs with venous stasis ulcer and serous drainage over right lower tibia, skin over left leg intact
Chest x-ray elevated right hemidiaphragm,
ECG: AV paced
Echocardiogram 07/31/2025: EF is 59%, no LVH, small LV, pacing wire in RV, normal atria, trace aortic regurgitation, aortic sclerosis, trace MR, mild to moderate TR
Hemoglobin 12.8, BUN and creatinine are 41 and 1.2, glucose is 105, proBNP is 419,
Impression:
Acute on chronic HFpEF
Ischemic cardiomyopathy with improved EF
CAD, CABG 2016
Medtronic pacemaker, generator change scheduled August 2025
Hypertension
Hyperlipidemia
Diabetes, presumably type II,
Myasthenia gravis, recently required hospitalization and IV steroids
History of TIA/CVA
Venous insufficiency
Esophageal stricture
DNR CODE STATUS former smoker
Brief postoperative atrial fibrillation 2016
Plan:
He presents with recurrence acute on chronic HFpEF. He is on Jardiance at this time. He also is on an insulin pump but presumably his diabetes is type II, will need to confirm this. Presuming this is the case, Jardiance can be continued.
His GFR is 52, he is not listed as having an allergy to spironolactone/eplerenone etc. This should be considered.
Continue IV Lasix.
The patient does not feel that this is an exacerbation of his myasthenia gravis.
Original Note:
Consultation
Consultation Request
Date/Time Consultation Requested: 08/03/2025
Date/Time Consultation Performed: 08/03/2025
Performing Provider: Dr. LEA Ramos
Reason for Consultation: Acute HF
Medical History
-
History of Present Illness:
Patient came to the ER today feeling poorly and with RLE weeping and is being admitted with recurrent acute HF and cardiology has been consulted. Patient was just admitted to the hospital with acute HF from 07/29/2025 until 07/31/2025. At that
time he is soon to previous dry weight of 190-195 lbs and patient was discharged down to a weight of 203 lbs on 07/31/2025. Patient was discharged to home on an increased dose of Lasix at 80 mg PO BID, he had only been taking Lasix 80 mg AM and 40
mg p.m. PO daily prior to admission. EF was stable by echo without any significant valve disease. Patient reports that he felt well when he went home and today was the first time he felt poorly, patient describes feeling poorly, but denies
specific complaints of SOB, NICHOLAS or chest pain. Patient then started to feel water running down his right leg and noticed his leg was weeping and so he returned to the ER.
PMH:
Recent admission for acute on chronic HFpEF 07/29/2025 until 07/31/2025
Chronic HFimpEF/HFpEF
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
CAD s/p CABG in 2017
Paroxysmal A-fib
Brief postop A-fib s/p CABG in 2017
Sick sinus syndrome status post Medtronic pacemaker 2010, dependent, scheduled for generator change 08/26/25
Hypertension
Hyperlipidemia
Type 1 diabetes, insulin-dependent
Hypothyroidism
Myasthenia gravis
History of TIA/CVA
Chronic venous insufficiency
Possible [facility]
Former smoker
DNR CODE STATUS
Past Medical History
Past Medical History: Other (in HPI)
Past Surgical History: Appendectomy, Cardiac (Medtronic PPM, CABG x 3 in 2017) and Other (Hernia repair)
Social History
Tobacco: Former Smoker
Alcohol: None
Drug: None
Living: Alone
Employment: Retired
Family History
Family History: Other (No family history of premature CAD)
Allergies / Home Medications
Allergy/AdvReac Type Severity Reaction Status Date / Time
efgartigimod mary-fcab (From Allergy Rash Verified 08/03/25 15:03
Vyvgart)
Penicillins Allergy diarrhea Verified 08/03/25 15:03
�Medication �Instructions �Recorded �Confirmed �Type
atorvastatin 80 mg tablet 80 mg PO DAILY High cholesterol 04/28/15 08/03/25 History
metoprolol succinate 50 mg 50 mg PO DAILY Blood Pressure 12/06/23 08/03/25 History
tablet,extended release 24 hr
pyridostigmine bromide 60 mg tablet 60 mg PO TID@08,, myasthenia 12/06/23 08/03/25 History
gravis
levothyroxine 125 mcg tablet 125 mcg PO DAILY@06 Thyroid 04/20/25 08/03/25 History
azithromycin 500 mg tablet 500 mg PO DAILY Infection 06/10/25 08/03/25 History
prednisone 20 mg tablet 30 mg PO DAILY Anti-Inflammatory 06/10/25 08/03/25 History
apixaban 5 mg tablet (Eliquis) 5 mg PO BID Blood Clot 06/15/25 08/03/25 Rx
Prevention/Tx #14 tabs
empagliflozin 10 mg tablet 10 mg PO DAILY #30 tabs 06/15/25 08/03/25 Rx
(Jardiance)
lisinopril 40 mg tablet 40 mg PO DAILY Blood Pressure 07/29/25 08/03/25 History
zilucoplan 32.4 mg/0.81 mL 32.4 mg SC DAILY 07/29/25 08/03/25 History
subcutaneous syringe (Zilbrysq)
furosemide 80 mg tablet (Lasix) 180 mg PO BID 08/03/25 08/03/25 History
Review of Systems
-
History Source: Patient
All other systems: Negative unless noted
Physical Exam
Vital Signs
Temp Pulse Resp BP Pulse Ox
98.2 F 72 20 120/67 95
08/03/25 15:02 08/03/25 15:02 08/03/25 15:02 08/03/25 15:02 08/03/25 15:02
GEN: NAD, AAO x 3
HEENT: EOMI, MMM
LUNGS: RA. CTA B/L without wheeze or rales
CV: AV paced on telemetry. Reg, S1/S2, no murmur
ABD: ND
EXT: +2 pitting B/L LE edema with weeping
NEURO: Gross non-focal
SKIN: No rash
Lab Results
08/03/25 14:36
08/03/25 14:36
She-N-Vnyzobuqbje Pept 419 pg/ml 08/03/25 12:40
Impression / Plan
-
Primary Service Coordinator [facility]: Dr. Murali Wagner
Assessment:
Presented with increased LE edema and feeling poorly 08/03/2025
Recent admission for acute on chronic HFpEF 07/29/2025 until 07/31/2025
Acute on chronic HFimpEF/HFpEF
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
CAD s/p CABG in 2016
Paroxysmal A-fib
Brief postop A-fib s/p CABG in 2016
Sick sinus syndrome status post Medtronic pacemaker 2010, dependent, scheduled for generator change 08/26/25
Hypertension
Hyperlipidemia
Type 1 diabetes, insulin-dependent
Hypothyroidism
Myasthenia gravis
History of TIA/CVA
Chronic venous insufficiency
Possible prior esophageal stricture [facility]
Former smoker
DNR CODE STATUS
ECHO 11/28/24: EF 56%, trace MR, aortic sclerosis, normal right heart with pacing leads identified, PASP 30 to 35 mmHg
Echo 07/31/2025: EF 59%, no WMA, compared to echo 11/2024 there is no significant change
Plan:
-Patient came to the ER today feeling poorly and with RLE weeping and is being admitted with recurrent acute HF and cardiology has been consulted. Patient was just admitted to the hospital with acute HF from 07/29/2025 until 07/31/2025. At that
time he is soon to previous dry weight of 190-195 lbs and patient was discharged down to a weight of 203 lbs on 07/31/2025. Patient was discharged to home on an increased dose of Lasix at 80 mg PO BID, he had only been taking Lasix 80 mg AM and 40
mg p.m. PO daily prior to admission. EF was stable by echo without any significant valve disease. Patient reports that he felt well when he went home and today was the first time he felt poorly, patient describes feeling poorly, but denies
specific complaints of SOB, NICHOLAS or chest pain. Patient then started to feel water running down his right leg and noticed his leg was weeping and so he returned to the ER.
-ECG reviewed by me is AV paced
-Patient is being mated with recurrent acute HFpEF, dry weight is likely 190-195 lbs. proBNP is not a reliable marker for this patient as it is persistently low despite obvious volume overload.
-Recommend Lasix 80 mg IV BID and pending response to diuresis will consider a dose of metolazone
-EF preserved by echo 07/31/2025, no need to repeat this admission
-Outpatient dose of Toprol XL 50 mg daily should be continued
-Outpatient dose of lisinopril 40 mg daily should be continued
-Outpatient dose of Jardiance 10 mg daily will transition to [facility] due to formulary changes in the hospital, but patient should resume his Jardiance 10 mg daily upon discharge to home
-Patient has a [place] [employer] PPM in place and is scheduled for generator change 08/26/2025. [facility] transmission completed in the ER on 08/03/2025 and will review once available, patient is pacemaker dependent and previously had 4 months of
battery longevity at last check on 07/29/2025.
-Patient has a history of paroxysmal A-fib first seen following CABG in 2017 and overall burden monitored by device checks.
-Outpatient dose of Eliquis 5 mg BID (age 80, Cre 1.1, wt 91.58 kg) should be continued
--- NOTE | 2025-08-03 16:05 | HPS.HSE ---
Family Physician
-
Family Physician: Gary Norton
Chief Complaint
-
dyspnea on exertion
History of Present Illness
Patient is a 80-year-old male with past medical history significant for myasthenia gravis, hypertension, hyperlipidemia, insulin-dependent diabetes, CAD s/p CABG, HFpEF (EF 56% 12/12), atrial flutter on Eliquis, TIA/CVA, hypothyroidism, recent
admission for CHF exacerbation 07/29/25 - 07/31/2025 who presented to [facility] ED for evaluation of dyspnea on exertion. Patient reports that since hospital discharge he has felt ok with no complaints. Yesterday afternoon he noticed that his RLE started
to weep and today he had increased dyspnea on exertion and figured he needed to return for evaluation. He reports he has been taking Lasix as ordered (80mg BID) and reports he noticed mild weight gain since discharge. Denies any fever, chills,
cough, chest pain, nausea, vomting, contsipation, dairrhea or urinary symptoms.
Medical History
Past Medical History
Past Medical History: Reports Other
Additional Past Medical History:
Coronary Artery Disease s/p CABG
Chronic HFpEF
Sick Sinus Syndrome s/p Pacemaker
Paroxysmal Atrial Fibrillation / Atrial Flutter
Essential Hypertension
Hyperlipidemia
Insulin-Dependent Diabetes Mellitus
Hypothyroidism
Myasthenia Gravis
Past Surgical History: Reports Other
Additional Past Surgical History:
CABG
PPM
Appendectomy
Hernia Repair
Right Total Knee Replacement
Social History
Tobacco: Non-smoker
Alcohol: None
Drug: None
Personal: Single
Living: Alone (Two-story home but sleeps in recliner on bottom level)
Family History
Family History: Not pertinent
Allergies / Home Medications
Allergies reflects when Allergies were last updated in [facility].
Home Medications with original date entered in [employer]
Allergy/Medication List:
Allergies
Allergy/AdvReac Type Severity Reaction Status Date / Time
efgartigimod mary-fcab (From Allergy Rash Verified 08/03/25 15:03
Vyvgart)
Penicillins Allergy diarrhea Verified 08/03/25 15:03
Home Medications
atorvastatin 80 mg tablet 80 mg PO DAILY High cholesterol 04/28/15
metoprolol succinate 50 mg tablet,extended release 24 hr 50 mg PO DAILY Blood Pressure 12/06/23
pyridostigmine bromide 60 mg tablet 60 mg PO TID@08,12,17 myasthenia gravis 12/06/23
levothyroxine 125 mcg tablet 125 mcg PO DAILY@06 Thyroid 04/20/25
azithromycin 500 mg tablet 500 mg PO DAILY Infection 06/10/25
prednisone 20 mg tablet 30 mg PO DAILY Anti-Inflammatory 06/10/25
apixaban 5 mg tablet (Eliquis) 5 mg PO BID Blood Clot Prevention/Tx #14 tabs 06/15/25
empagliflozin 10 mg tablet (Jardiance) 10 mg PO DAILY #30 tabs 06/15/25
lisinopril 40 mg tablet 40 mg PO DAILY Blood Pressure 07/29/25
zilucoplan 32.4 mg/0.81 mL subcutaneous syringe (Zilbrysq) 32.4 mg SC DAILY 07/29/25
Patient Own Insulin Pump 1 sliding scale dose SC .VIA [employer] 08/03/25
furosemide 80 mg tablet (Lasix) 80 mg PO BID 08/03/25
Review of Systems
-
History Source: Patient
Constitutional: Reports Weight Gain; Denies Fever or Chills
EENT: Denies Sore Throat
Respiratory: Reports Trouble Breathing (exertional dyspnea ); Denies Cough or Hemoptysis
Cardiac: Denies Chest Pain, Diaphoresis, Palpitations or Syncope
Abdomen/GI: Denies Abdominal Pain, Nausea, Vomiting or Diarrhea
: Denies Dysuria, Frequency or Urgency
Musculoskeletal: Denies Joint Pain
Skin: Reports Other (RLE weeping ); Denies Rash
Neurological: Reports Weakness; Denies Dizzy, Headache or Numbness
Physical Exam
Vital Signs
Vital Signs
Temp Pulse Resp BP Pulse Ox
98.2 F 72 20 120/67 95
08/03/25 15:02 08/03/25 15:02 08/03/25 15:02 08/03/25 15:02 08/03/25 15:02
Physical Exam
General: Well Developed, Well Nourished, No Apparent Distress, Comfortable, Conversant and Obese
HEENT: NormoCephalic, PERRLA, Nose Appears Normal and Ears Appear Normal
Respiratory: Clear, Non Labored Respirations and Decreased Breath Sounds (in right middle and lower lobe ); No Wheezes, Rales or Rhonchi
Cardiac: Regular Rhythm and Peripheral Edema; No Murmur, Rub or Gallop
GI: Soft, Non Tender, Non Distended and Normal Bowel Sounds
Musculoskeletal: No Clubbing and No Cyanosis
Skin: Warm, IV/Catheter Site and Other (Right harley skin tear r/t water blister and weeping)
Neuro: Awake and AO x 3
Psych: Calm
Laboratory Results
-
08/03/25 14:36
08/03/25 14:36
Laboratory Results
Total Bilirubin 1.1 mg/dl (0.2-1.3) 08/03/25 14:36
AST 40 U/L (17-59) 08/03/25 14:36
ALT 40 U/L (0-50) 08/03/25 14:36
Alkaline Phosphatase 73 U/L (38-126) 08/03/25 14:36
Data Reviewed
-
Medical Tests (Nuc Med, Echo, EKG etc): Report Reviewed by me (EKG: AV dual-paced rhythm)
Lab Data: Labs Reviewed by me (pBNP 419)
Impression/Plan
-
IMPRESSION/PLAN:
#exertional dyspnea and RLE weeping likely 2/2 acute on chronic HFpEF
#Chronic HFpEF
pBNP 419
weight: 95.7kg (was 92.397kg at discharge 07/31/2025) = 3.303kg weight gain since discharge
EKG: AV dual-paced rhythm
- Admit to telemetry
- Consult Cardiology
- IV Lasix 80mg BID
- Hold PO Lasix
- daily weights
- I & Os
#Paroxysmal Atrial Fibrillation / Atrial Flutter
- continue Eliquis and metoprolol
#Essential Hypertension
- continue lisinopril
#Hyperlipidemia
- continue atorvastatin
#Insulin-Dependent Diabetes Mellitus
- continue with own insulin pump
- continue Jardiance
#Hypothyroidism
- continue levothyroxine
#Myasthenia Gravis
- continue prednisone and pyridostigmine
- continue azithromycin as prophylaxis
- continue Zilbrysq out patient
#Coronary Artery Disease
s/p CABG
#Sick Sinus Syndrome
s/p Pacemaker
Code status: DNR
DVT prophylaxis: Eliquis
[2025-08-03] MEDS: LASIX 80 MG IV (16:29)
--- NOTE | 2025-08-03 17:46 | CM ---
Chart reviewed. Spoke with patient at ED bedside
Discharged from on 07/31
Lives alone in 2 with 1 [address]
Independent with ADLs but son does grocery shopping
walking with RW and cane
DME Rw cane, insulin pump and glucometer
PCP Gary Sanchez
[facility] in [place]
[facility]
no hx of SNF
[facility] liaison notified of his admission
DCP is to go home with C
CM will continue to follow up for dcp needs
--- NOTE | 2025-08-03 20:23 | W.PN.UPDATE ---
Update Note
Progress Note Update
Attending note
Patient seen independently
80-year-old man with past medical history of:
myasthenia gravis,
hypertension,
hyperlipidemia,
insulin-dependent diabetes,
CAD s/p CABG,
HFpEF (EF 56% 12/12),
atrial flutter on Eliquis,
TIA/CVA,
hypothyroidism,
recent admission for CHF exacerbation 07/29/25 - 07/31/2025
presents with dyspnea on exertion. Since hospital discharge he has felt ok with no complaints. Yesterday his RLE started to weep and today he had increased dyspnea on exertion and figured he needed to return for evaluation. He has been taking Lasix
as ordered (80mg BID) and reports he noticed mild weight gain since discharge. Denies any fever, chills, cough, chest pain, nausea, vomting, constipation, diarrhea or urinary symptoms.
Past Medical History
Coronary Artery Disease s/p CABG
Chronic HFpEF
Sick Sinus Syndrome s/p Pacemaker
Paroxysmal Atrial Fibrillation / Atrial Flutter
Essential Hypertension
Hyperlipidemia
Insulin-Dependent Diabetes Mellitus
Hypothyroidism
Myasthenia Gravis
CABG
PPM
Appendectomy
Hernia Repair
Right Total Knee Replacement
Physical Exam
General: Well Developed, Well Nourished, No Apparent Distress,
HEENT: NormoCephalic,
Respiratory: Clear
Cardiac: Regular Rhythm
GI: Soft, Non Tender,
Psych: Calm
IMPRESSION/PLAN:
1. exertional dyspnea and RLE weeping likely 2/2 acute on chronic HFpEF
- Consult Cardiology. Cardiology stated:
'-ECG reviewed by me is AV paced
-Patient is being mated with recurrent acute HFpEF, dry weight is likely 190-195 lbs. proBNP is not a reliable marker for this patient as it is persistently low despite obvious volume overload.
-Recommend Lasix 80 mg IV BID and pending response to diuresis will consider a dose of metolazone
-EF preserved by echo 07/31/2025, no need to repeat this admission
-Outpatient dose of Toprol XL 50 mg daily should be continued
-Outpatient dose of lisinopril 40 mg daily should be continued
-Outpatient dose of Jardiance 10 mg daily will transition to [facility] due to formulary changes in the hospital, but patient should resume his Jardiance 10 mg daily upon discharge to home
-Patient has a [employer] PPM in place and is scheduled for generator change 08/26/2025. [employer] express transmission completed in the ER on 08/03/2025 and will review once available, patient is pacemaker dependent and previously had 4 months of
battery longevity at last check on 07/29/2025.
-Patient has a history of paroxysmal A-fib first seen following CABG in 2017 and overall burden monitored by device checks.
-Outpatient dose of Eliquis 5 mg BID (age 80, Cre 1.1, wt 91.58 kg) should be continued'
- IV Lasix 80mg BID
- Hold PO Lasix
- daily weights
- I & Os
Please see PUBLIC RELATIONS ASSISTANT note for full details regarding:
Paroxysmal Atrial Fibrillation / Atrial Flutter
Essential Hypertension
Hyperlipidemia
Insulin-Dependent Diabetes Mellitus
Hypothyroidism
Myasthenia Gravis
Coronary Artery Disease
Sick Sinus Syndrome
Code status: DNR
DVT prophylaxis: Eliquis
[2025-08-03] MEDS: ELIQUIS 5 MG PO (21:06)
[2025-08-03] MEDS: MESTINON 60 MG PO (21:06)
[2025-08-03 21:41] LABS: Glucose - Point of Care 79 mg/dl (70-99)
[2025-08-03] MEDS: TYLENOL 650 MG PO (21:48)
[2025-08-04 03:29] VITALS: BP 139/81
[2025-08-04] MEDS: SYNTHROID 125 MCG PO (05:39)
[2025-08-04 06:00] VITALS: BMI 27.1
[2025-08-04 07:22] LABS: Glucose - Point of Care 133 mg/dl (70-99)
[2025-08-04] MEDS: ZITHROMAX 500 MG PO (08:33)
[2025-08-04] MEDS: LIPITOR 80 MG PO (08:33)
[2025-08-04] MEDS: FARXIGA 10 MG PO (08:33)
[2025-08-04] MEDS: ELIQUIS 5 MG PO ×2 (08:34→20:31)
[2025-08-04] MEDS: TOPROL XL 50 MG PO (08:34)
[2025-08-04] MEDS: ZESTRIL 40 MG PO (08:34)
[2025-08-04] MEDS: DELTASONE 30 MG PO (08:37)
--- NOTE | 2025-08-04 08:38 | VNURNOTE ---
Addendum entered by Ping Yoder RN 08/04/25 11:52:
[facility] Resumption referral placed in [facility].
Original Note:
Chart reviewed. Patient is current with [facility]. Will continue to follow hospital course and DC plans.
[2025-08-04] MEDS: MESTINON 60 MG PO ×3 (08:41→17:28)
[2025-08-04] MEDS: NON-FORMULARY ITEM 1 MG SC (08:55)
[2025-08-04 09:09] VITALS: BP 124/52
[2025-08-04] MEDS: LASIX 80 MG IV ×2 (10:37→17:29)
[2025-08-04 11:08] LABS: Blood Urea Nitrogen 40 mg/dl (9-20); Calcium 8.8 mg/dl (8.4-10.2); Carbon Dioxide 34 mmol/L (22-30); Chloride 100 mmol/L (98-107); Estimated Creatinine Clearance 52 ml/min; Glucose 119 mg/dl (70-99); Potassium 4.4 mmol/L (3.5-5.1); Sodium 137 mmol/L (135-145); eGFR > 60.00
--- NOTE | 2025-08-04 11:08 | W.PN.CARDCBS ---
Addendum entered and electronically signed by Juice Sharma MD 08/04/25 15:15:
I saw and examined the patient.
The Lab Clerk's note was reviewed and I agree with the note.
Comment:
GEN: No distress, awake, Ox3
HEENT: supple, anicteric, mmm
LUNGS: CTA, no wheezes/rales
CV: Reg, S1/S2, 1/6 syst LSB, S3+
ABD: soft, BS+, NT/ND
EXT: No edema
NEURO: Gross non-focal
SKIN: No rash
PLan:
Continue Lasix 80 mg IV twice daily. Weight down to 200 lbs. Will try to get him at least down below 195.
Creatinine at 1.2. Continue to follow-up.
Continue Toprol, lisinopril and Farxiga.
Continue Toprol and Eliquis.
Will need generator change as outpatient
Original Note:
Today's Communication / Plan
-
Ongoing attempts at diuresis with Lasix 80 mg IV BID, goal weight is 190-195 lbs and would consider adding a dose of metolazone if diuresis slows
Heart failure educator has been consulted
Impression / Plan
-
Primary Car Blocker: Dr. Murali Wagner
Assessment:
Presented with increased LE edema and feeling poorly 08/03/2025
Recent admission for acute on chronic HFpEF 07/29/2025 until 07/31/2025
Acute on chronic HFimpEF/HFpEF
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
CAD s/p CABG in 2017
Paroxysmal A-fib
Brief postop A-fib s/p CABG in 2017
Sick sinus syndrome status post Medtronic pacemaker 2010, dependent, scheduled for generator change 08/26/25
Hypertension
Hyperlipidemia
Type 1 diabetes, insulin-dependent
Hypothyroidism
Myasthenia gravis
History of TIA/CVA
Chronic venous insufficiency
Possible prior esophageal stricture treated at [facility]
Former smoker
DNR CODE STATUS
ECHO 11/28/24: EF 56%, trace MR, aortic sclerosis, normal right heart with pacing leads identified, PASP 30 to 35 mmHg
Echo 07/31/2025: EF 59%, no WMA, compared to echo 11/2024 there is no significant change
Plan:
-Weight is down 2 lbs overnight and patient weighs 200 lbs on my review of VS 08/04/2025. Patient has a dry weight of 190-195 lbs.
-Patient reports eating TV dinners and prepared foods from [employer] for dinner and will usually have half of a sandwich with lunch meat or some kind of salad for lunches. Patient also questioning why he requires Lasix IV instead of Lasix PO.
We talked on 08/04/2025 and I explained the rationale for Lasix IV and I will also ask heart failure education team to follow-up with him, order placed by me.
-Telemetry reviewed by me is AV paced
-Continue Lasix 80 mg IV BID and pending response to diuresis will consider a dose of metolazone. Patient was taking Lasix 80 mg PO BID prior to admission.
-EF preserved by echo 07/31/2025, no need to repeat this admission
-Outpatient dose of Toprol XL 50 mg daily should be continued
-Outpatient dose of lisinopril 40 mg daily should be continued
-Outpatient dose of Jardiance 10 mg daily will transition to Farxiga due to formulary changes in the hospital, but patient should resume his Jardiance 10 mg daily upon discharge to home
-Patient has a Medtronic PPM in place and is scheduled for generator change 08/26/2025. [facility] express transmission completed in the ER on 08/03/2025 reviewed by me on 08/04/2025, patient is pacemaker dependent and has 4 months of battery longevity
at last check on 08/03/2025.
-Patient has a history of paroxysmal A-fib first seen following CABG in 2017 and overall burden monitored by device checks.
-Outpatient dose of Eliquis 5 mg BID (age 80, Cre 1.1, wt 91.58 kg) should be continued
HPI: Patient came to the ER today feeling poorly and with RLE weeping and is being admitted with recurrent acute HF and cardiology has been consulted. Patient was just admitted to the hospital with acute HF from 07/29/2025 until 07/31/2025. At
that time he is soon to previous dry weight of 190-195 lbs and patient was discharged down to a weight of 203 lbs on 07/31/2025. Patient was discharged to home on an increased dose of Lasix at 80 mg PO BID, he had only been taking Lasix 80 mg AM
and 40 mg p.m. PO daily prior to admission. EF was stable by echo without any significant valve disease. Patient reports that he felt well when he went home and today was the first time he felt poorly, patient describes feeling poorly, but denies
specific complaints of SOB, NICHOLAS or chest pain. Patient then started to feel water running down his right leg and noticed his leg was weeping and so he returned to the ER.
Progress Note - Car Blocker
Subjective
Date of Service: August 04, 2025
Patient reports improved SOB
Objective
Labs:
08/03/25 14:36
08/04/25 09:53
Labs
Hgb 12.8 g/dL (13.0-18.0) L 08/03/25 14:36
Hct 38.5 % (39.0-52.0) L 08/03/25 14:36
Plt Count 153 10^3/uL (130-400) 08/03/25 14:36
Sodium 137 mmol/L (135-145) 08/04/25 09:53
Potassium 4.4 mmol/L (3.5-5.1) 08/04/25 09:53
BUN 40 mg/dl (9-20) H 08/04/25 09:53
Creatinine 1.2 mg/dL (0.7-1.3) 08/04/25 09:53
Glucose 119 mg/dl (70-99) H 08/04/25 09:53
Vital Signs and I&O:
Vital Signs
Temp Pulse Resp BP Pulse Ox
97.4 F 72 18 132/70 93
08/04/25 09:09 08/04/25 09:09 08/04/25 09:09 08/04/25 10:37 08/04/25 09:09
Vital Signs
Temp Pulse Resp BP Pulse Ox
97.4 F 72 18 132/70 93
08/04/25 09:09 08/04/25 09:09 08/04/25 09:09 08/04/25 10:37 08/04/25 09:09
Intake & Output
08/02/25 08/03/25 08/04/25 08/05/25
06:59 06:59 06:59 06:59
Intake Total 720 / 720
Output Total 2175 / 2175
Balance -1455 / -1455
Physical Exam
Physical Exam
General: NAD
Heart: AV paced on telemetry
Lungs: RA without audible wheeze
PV: B/L LE edema, RLE bandaged for weeping wound
[2025-08-04 11:27] VITALS: BP 128/69
[2025-08-04 11:45] LABS: Glucose - Point of Care 98 mg/dl (70-99)
[2025-08-04 12:10] LABS: Glycohemoglobin (HgbA1c) 6.7 % (4.0-5.9)
--- NOTE | 2025-08-04 12:43 | PN.DE.MGMTRT ---
Insulin Management
- -
08/04/2025 Diabetes Management Consult INSULIN PUMP
80 year old male readmitted for increased SOB and lle swelling. Recently admitted from 07/29 to 07/31 acute on chronic HFpEF. PMH CAD/ CABG, HTN, HLD, diabetes, chf, myasthenia gravis, afib with pacemaker. Prior to admission was using the
medtronic insulin pump, with novolog and Quick set with Guardian sensor. A1C 04/21/2025 7.1%, cr 1.1, eGFR > 60.
Patient is awake alert and oriented resting in bed, able to discuss diabetes care. States he has not had early AM low blood sugar at 3AM since insulin pump changes last admission.. Fasting glucose this AM 133.
Current basal rates
12AM .1
4AM .1
6AM .35
8AM .45
12pm .45
4pm .3
24 hours basal total units 7.3
I:CHO ratio 1:12, Sensitivity 1:40, active insulin 2 hours.
Patient is able to manage pump, program and deliver bolus insulin. Will continue insulin pump.
Discussed with nurse
Will follow.
Diabetes History
- -
Type of Diabetes: 1
Pre-Admission Diabetes Regimen
08/03/25 08/03/25 08/04/25
12:40 14:36 07:37
Creatinine Cancelled 1.2 Cancelled
08/04/25
09:53
Creatinine 1.2
Lab Results
Hemoglobin A1c Cancelled 08/04/25 07:45
Insulin Pump Settings
IP Diabetes Regimen
08/03/25 08/03/25 08/03/25
12:40 14:36 21:40
Glucose Cancelled 105 H
POC Glucose 79
08/04/25 08/04/25 08/04/25
07:21 07:37 09:53
Glucose Cancelled 119 H
POC Glucose 133 H
12/16/25
11:43
Glucose
POC Glucose 98
Meal type: Breakfast
Amount consumed: 100%
Patient Education
--- NOTE | 2025-08-04 13:04 | W.PN.HOSP.TC ---
Today's Communication/Plan
-
Monitor vital signs and see plan
Continue IV diuresis
Monitor renal function
PT evaluation
Continue with insulin pump per diabetes SLASHER HAND
Assessment / Plan
Assessment / Plan
General: Well Developed, Well Nourished, No Apparent Distress, Comfortable, Conversant and Obese
HEENT: NormoCephalic, PERRLA
Respiratory: Clear, Non Labored Respirations
Cardiac: Regular Rhythm and Peripheral Edema; No Murmur, Rub or Gallop
GI: Soft, Non Tender, Non Distended and Normal Bowel Sounds
MSK: + edema
Skin: Other (Right harley skin tear r/t water blister and weeping)
Neuro: Awake and AO x 3
Psych: Calm
exertional dyspnea and RLE weeping likely 2/2 acute on chronic HFpEF
pBNP 419, not a good indicator on this patient
EKG: AV dual-paced rhythm
Cardiology following
Continue with IV diuresis
- daily weights
- I & Os
#Paroxysmal Atrial Fibrillation / Atrial Flutter
- continue Eliquis and metoprolol
#Essential Hypertension
- continue lisinopril
#Hyperlipidemia
- continue atorvastatin
#Insulin-Dependent Diabetes Mellitus
- continue with own insulin pump, diabetes SLASHER HAND following
- continue Jardiance
A1c 6.7
#Hypothyroidism
- continue levothyroxine
#Myasthenia Gravis
- continue prednisone and pyridostigmine
- continue azithromycin as prophylaxis
- continue Zilbrysq out patient
#Coronary Artery Disease
s/p CABG
#Sick Sinus Syndrome
s/p Pacemaker
Code status: DNR
DVT prophylaxis: Eliquis
I spent a total of 52 minutes with the patient or on the floor. More than 50% of this time involved counseling and coordination of care.
Anticipated Discharge: 24 - 48 hours
Subjective/Interval History
-
Date of Service: August 04, 2025
Denies pain
Objective Data
-
Labs:
Laboratory Results
08/03/25 08/04/25 08/04/25
14:36 07:37 09:53
WBC 7.6
Hgb 12.8 L
Hct 38.5 L
Plt Count 153
Sodium Cancelled 137
Potassium Cancelled 4.4
Chloride Cancelled 100
Carbon Dioxide Cancelled 34 H
BUN Cancelled 40 H
Creatinine Cancelled 1.2
Glucose Cancelled 119 H
Calcium Cancelled 8.8
Vital Signs:
Vital Signs
Temp Pulse Resp BP Pulse Ox
97.4 F 71 16 128/69 95
08/04/25 11:27 08/04/25 11:27 08/04/25 11:27 08/04/25 11:27 08/04/25 11:27
I&O
08/03/25 08/04/25 08/05/25
06:59 06:59 06:59
Intake Total 720 / 720
Output Total 2175 / 2175
Balance -1455 / -1455
[2025-08-04] MEDS: PT'S OWN INSULIN PUMP - NovoLOG 5 UNIT SC ×2 (13:13→17:31)
--- NOTE | 2025-08-04 14:21 | W.CARD.DEVCH ---
Cardiac Device Check
-
Device: Pacemaker
Fish Farmer: Medtronic
The patient's device was interrogated with assistance of the device cash applications representative followed by a complete physician review. The device had normal function. No abnormalities seen.
Patient has a Medtronic PPM in place and [facility] express transmission was reviewed by me on 08/04/2025, he is approaching NAYELI with her current battery longevity estimated at 4 months. No evidence of atrial arrhythmia.
--- NOTE | 2025-08-04 16:50 | CM ---
Reviewed chart. Pt on IV Lasix. PT eval pending. PT is known to [facility]. Resumption of care referral placed. On room air
Plan: Home with [facility]
[2025-08-04 17:07] LABS: Glucose - Point of Care 124 mg/dl (70-99)
[2025-08-04 17:22] VITALS: BP 137/70
[2025-08-04 19:25] VITALS: BP 129/65
[2025-08-04 21:34] LABS: Glucose - Point of Care 112 mg/dl (70-99)
[2025-08-04 23:23] LABS: Glucose - Point of Care 77 mg/dl (70-99)
[2025-08-04] MEDS: PT'S OWN INSULIN PUMP - NovoLOG SC (23:32)
[2025-08-04 23:51] VITALS: BP 142/80
[2025-08-05] VITALS (7 sets, daily range): BP systolic 110–137; BP diastolic 53–75; PULSE 71; O2SAT 93; BMI 26.5
[2025-08-05] MEDS: SYNTHROID 125 MCG PO (05:28)
[2025-08-05 07:26] LABS: Glucose - Point of Care 132 mg/dl (70-99)
[2025-08-05 07:52] LABS: Hematocrit 44.0 % (39.0-52.0); Hemoglobin 14.5 g/dL (13.0-18.0); Mean Corp Hgb Conc. 33.0 g/dL (33.0-37.0); Mean Corpuscular Volume 91.5 fL (80.0-94.0); Nucleated Red Blood Cells % 0 % (-); Platelet Count 155 10^3/uL (130-400); Red Cell Dist. Width 15.7 % (11.5-14.5)
[2025-08-05] MEDS: PT'S OWN INSULIN PUMP - NovoLOG 4.1 UNIT SC (08:51)
[2025-08-05] MEDS: FARXIGA 10 MG PO (08:52)
[2025-08-05] MEDS: LIPITOR 80 MG PO (08:53)
[2025-08-05] MEDS: DELTASONE 30 MG PO (08:53)
[2025-08-05] MEDS: ZESTRIL 40 MG PO (08:53)
[2025-08-05] MEDS: TYLENOL 650 MG PO (08:53)
[2025-08-05] MEDS: ELIQUIS 5 MG PO ×2 (08:53→20:52)
[2025-08-05] MEDS: TOPROL XL 50 MG PO (08:53)
[2025-08-05] MEDS: ZITHROMAX 500 MG PO (08:54)
[2025-08-05] MEDS: MESTINON 60 MG PO ×3 (08:56→16:59)
[2025-08-05 08:59] LABS: Blood Urea Nitrogen 41 mg/dl (9-20); Calcium 8.6 mg/dl (8.4-10.2); Carbon Dioxide 29 mmol/L (22-30); Chloride 98 mmol/L (98-107); Estimated Creatinine Clearance 57 ml/min; Glucose 117 mg/dl (70-99); Potassium 3.9 mmol/L (3.5-5.1); Sodium 133 mmol/L (135-145); eGFR > 60.00
[2025-08-05] MEDS: NON-FORMULARY ITEM 32.4 MG SC (09:08)
[2025-08-05] MEDS: LASIX 80 MG IV ×2 (09:08→16:59)
[2025-08-05 10:27] LABS: Magnesium 2.4 mg/dl (1.6-2.3)
--- NOTE | 2025-08-05 10:54 | W.PN.CARDCBS ---
Addendum entered and electronically signed by Juice Sharma MD 08/05/25 16:09:
I saw and examined the patient.
The Magnetic Prospector's note was reviewed and I agree with the note.
Comment:
GEN: No distress, awake, Ox3
HEENT: supple, anicteric, mmm
LUNGS: CTA, no wheezes/rales
CV: Reg, S1/S2, 1/6 syst LSB, no gallop
ABD: soft, BS+, NT/ND
EXT: No edema
NEURO: Gross non-focal
SKIN: No rash
Plan:
Overall doing well. Weight is down to 195. Will continue Lasix 80 mg IV twice daily and transition to oral diuretics in the a.m. Creatinine is improved at 1.2.
Continue Toprol, lisinopril, and Farxiga.
Remains atrially paced. Continue Toprol and Eliquis.
Hopeful for discharge in a.m.
Original Note:
Today's Communication / Plan
-
Continue Lasix 80 mg IV BID
Likely discharge to home tomorrow
Impression / Plan
-
Primary Steam Pan Sponger: Dr. Murali Wagner
Assessment:
Presented with increased LE edema and feeling poorly 08/03/2025
Recent admission for acute on chronic HFpEF 07/29/2025 until 07/31/2025
Acute on chronic HFimpEF/HFpEF
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
CAD s/p CABG in 2017
Paroxysmal A-fib
Brief postop A-fib s/p CABG in 2017
Sick sinus syndrome status post Medtronic pacemaker 2010, dependent, scheduled for generator change 08/26/25
Hypertension
Hyperlipidemia
Type 1 diabetes, insulin-dependent
Hypothyroidism
Myasthenia gravis
History of TIA/CVA
Chronic venous insufficiency
Possible prior esophageal stricture treated at [facility]
Former smoker
DNR CODE STATUS
ECHO 11/28/24: EF 56%, trace MR, aortic sclerosis, normal right heart with pacing leads identified, PASP 30 to 35 mmHg
Echo 07/31/2025: EF 59%, no WMA, compared to echo 11/2024 there is no significant change
Plan:
-Telemetry reviewed by me is AV paced 08/05/2025
-Weight is down 5 lbs overnight and patient weighs 195 lbs on my review of VS 08/05/2025. Patient has a dry weight of 190-195 lbs.
-Cre stable at 1.1 on my review of labs 08/05/2025
-Continue Lasix 80 mg IV BID. Patient was taking Lasix 80 mg PO BID prior to admission.
-EF preserved by echo 07/31/2025, no need to repeat this admission
-Outpatient dose of Toprol XL 50 mg daily should be continued
-Outpatient dose of lisinopril 40 mg daily should be continued
-Outpatient dose of Jardiance 10 mg daily will transition to Farxiga due to formulary changes in the hospital, but patient should resume his Jardiance 10 mg daily upon discharge to home
-Patient has a Medtronic PPM in place and is scheduled for generator change 08/26/2025. [facility] express transmission completed in the ER on 08/03/2025 reviewed by me on 08/04/2025, patient is pacemaker dependent and has 4 months of battery longevity
at last check on 08/03/2025.
-Patient has a history of paroxysmal A-fib first seen following CABG in 2017 and overall burden monitored by device checks.
-Outpatient dose of Eliquis 5 mg BID (age 80, Cre 1.1, wt 91.58 kg) should be continued
HPI: Patient came to the ER today feeling poorly and with RLE weeping and is being admitted with recurrent acute HF and cardiology has been consulted. Patient was just admitted to the hospital with acute HF from 07/29/2025 until 07/31/2025. At
that time he is soon to previous dry weight of 190-195 lbs and patient was discharged down to a weight of 203 lbs on 07/31/2025. Patient was discharged to home on an increased dose of Lasix at 80 mg PO BID, he had only been taking Lasix 80 mg AM
and 40 mg p.m. PO daily prior to admission. EF was stable by echo without any significant valve disease. Patient reports that he felt well when he went home and today was the first time he felt poorly, patient describes feeling poorly, but denies
specific complaints of SOB, NICHOLAS or chest pain. Patient then started to feel water running down his right leg and noticed his leg was weeping and so he returned to the ER.
Progress Note - Steam Pan Sponger
Subjective
Date of Service: August 05, 2025
Patient thinks LE edema is better and he is asking for discharge to home, but willing to stay for another day of IV Lasix given this is a recurrent admission
Objective
Labs:
08/05/25 07:01
08/05/25 07:01
Labs
Hgb 14.5 g/dL (13.0-18.0) 08/05/25 07:01
Hct 44.0 % (39.0-52.0) 08/05/25 07:01
Plt Count 155 10^3/uL (130-400) 08/05/25 07:01
Sodium 133 mmol/L (135-145) L 08/05/25 07:01
Potassium 3.9 mmol/L (3.5-5.1) 08/05/25 07:01
BUN 41 mg/dl (9-20) H 08/05/25 07:01
Creatinine 1.1 mg/dL (0.7-1.3) 08/05/25 07:01
Glucose 117 mg/dl (70-99) H 08/05/25 07:01
Vital Signs and I&O:
Vital Signs
Temp Pulse Resp BP Pulse Ox
97.4 F 72 15 137/65 95
08/05/25 07:59 08/05/25 07:59 08/05/25 07:59 08/05/25 07:59 08/05/25 07:59
Vital Signs
Temp Pulse Resp BP Pulse Ox
97.4 F 72 15 137/65 95
08/05/25 07:59 08/05/25 07:59 08/05/25 07:59 08/05/25 07:59 08/05/25 07:59
Intake & Output
08/03/25 08/04/25 08/05/25 08/06/25
06:59 06:59 06:59 06:59
Intake Total 720 / 720 1200 / 1200
Output Total 2175 / 2175 3560 / 3560 300 / 300
Balance -1455 / -1455 -2360 / -2360 -300 / -300
Physical Exam
Physical Exam
General: NAD
Heart: AV paced on telemetry
Lungs: RA without audible wheeze
PV: B/L LE edema, RLE bandaged for weeping wound
[2025-08-05] MEDS: KCL 40 MEQ PO (10:56)
[2025-08-05 11:48] LABS: Glucose - Point of Care 155 mg/dl (70-99)
--- NOTE | 2025-08-05 12:29 | PN.DE.MGMTRT ---
Insulin Management
- -
08/05/2025 Diabetes Management Consult INSULIN PUMP
80 year old male readmitted for increased SOB and lle swelling. Recently admitted from 07/29 to 07/31 acute on chronic HFpEF. PMH CAD/ CABG, HTN, HLD, diabetes, chf, myasthenia gravis, afib with pacemaker. Prior to admission was using the
medtronic insulin pump, with novolog and Quick set with Guardian sensor. A1C 04/21/2025 7.1%, cr 1.1, eGFR > 60.
Patient is awake alert and oriented out of bed, able to discuss diabetes care. States he has not had early AM low blood sugar at 3AM since insulin pump changes last admission. Fasting glucose this AM 132.
Current basal rates
12AM .1
4AM .1
6AM .35
8AM .45
12pm .45
4pm .3
24 hours basal total units 7.3
I:CHO ratio 1:12, Sensitivity 1:40, active insulin 2 hours.
Patient is able to manage pump, program and deliver bolus insulin. Will continue insulin pump.
Discussed with nurse
Will follow.
Diabetes History
- -
Type of Diabetes: 1
Pre-Admission Diabetes Regimen
08/05/25
07:01
Creatinine 1.1
Lab Results
Hemoglobin A1c Cancelled 08/04/25 07:45
Insulin Pump Settings
IP Diabetes Regimen
08/04/25 08/04/25 08/04/25
17:06 21:32 23:21
Glucose
POC Glucose 124 H 112 H 77
08/05/25 08/05/25 08/05/25
07:01 07:25 11:47
Glucose 117 H
POC Glucose 132 H 155 H
Meal type: Breakfast
Amount consumed: 100%
Patient Education
[2025-08-05] MEDS: PT'S OWN INSULIN PUMP - NovoLOG 3.7 UNIT SC (13:13)
--- NOTE | 2025-08-05 13:22 | W.PN.HOSP.TC ---
Today's Communication/Plan
-
Monitor vitals and see plan
Continue with IV diuresis
Monitor renal function
PT
Assessment / Plan
Assessment / Plan
General: Well Developed, Well Nourished, No Apparent Distress, Comfortable, Conversant and Obese
HEENT: NormoCephalic, PERRLA
Respiratory: Clear, Non Labored Respirations
Cardiac: Regular Rhythm and Peripheral Edema; No Murmur, Rub or Gallop
GI: Soft, Non Tender, Non Distended and Normal Bowel Sounds
MSK: + edema
Skin: Other (Right harley skin tear r/t water blister and weeping)
Neuro: Awake and AO x 3
Psych: Calm
exertional dyspnea and RLE weeping likely 2/2 acute on chronic HFpEF
pBNP 419, not a good indicator on this patient
EKG: AV dual-paced rhythm
Cardiology following
Continue with IV diuresis
- daily weights
- I & Os
#Paroxysmal Atrial Fibrillation / Atrial Flutter
- continue Eliquis and metoprolol
#Essential Hypertension
- continue lisinopril
#Hyperlipidemia
- continue atorvastatin
#Insulin-Dependent Diabetes Mellitus
- continue with own insulin pump, diabetes MANAGER [employer] following
- continue Jardiance
A1c 6.7
Hyponatremia
Monitor
#Hypothyroidism
- continue levothyroxine
#Myasthenia Gravis
- continue prednisone and pyridostigmine
- continue azithromycin as prophylaxis
- continue Zilbrysq out patient
#Coronary Artery Disease
s/p CABG
#Sick Sinus Syndrome
s/p Pacemaker
Code status: DNR
DVT prophylaxis: Eliquis
I spent a total of 51 minutes with the patient or on the floor. More than 50% of this time involved counseling and coordination of care.
Anticipated Discharge: 24 - 48 hours
Subjective/Interval History
-
Date of Service: August 05, 2025
Denies pain
Objective Data
-
Labs:
Laboratory Results
08/05/25
07:01
WBC 8.9
Hgb 14.5
Hct 44.0
Plt Count 155
Sodium 133 L
Potassium 3.9
Chloride 98
Carbon Dioxide 29
BUN 41 H
Creatinine 1.1
Glucose 117 H
Calcium 8.6
Vital Signs:
Vital Signs
Temp Pulse Resp BP Pulse Ox
97.3 F 74 16 110/66 96
08/05/25 11:59 08/05/25 11:59 08/05/25 11:59 08/05/25 11:59 08/05/25 11:59
I&O
08/04/25 08/05/25 08/06/25
06:59 06:59 06:59
Intake Total 720 / 720 1200 / 1200
Output Total 2175 / 2175 3560 / 3560 300 / 300
Balance -1455 / -1455 -2360 / -2360 -300 / -300
[2025-08-05 16:55] LABS: Glucose - Point of Care 177 mg/dl (70-99)
[2025-08-05] MEDS: PT'S OWN INSULIN PUMP - NovoLOG 4.6 UNIT SC (16:55)
--- NOTE | 2025-08-05 18:25 | CM ---
Reviewed chart. PT continues on IV Lasix. On room air, PT rec Home Health, [facility] referral placed yesterday
Plan: Home with [facility]
[2025-08-05 21:30] LABS: Glucose - Point of Care 143 mg/dl (70-99)
[2025-08-05] MEDS: PT'S OWN INSULIN PUMP - NovoLOG SC (21:52)
[2025-08-05 23:54] LABS: Glucose - Point of Care 88 mg/dl (70-99)
[2025-08-06 03:17] VITALS: BP 115/71
[2025-08-06] MEDS: SYNTHROID 125 MCG PO (05:45)
[2025-08-06 06:00] VITALS: BMI 25.8
--- NOTE | 2025-08-06 07:45 | PN.DE.MGMTRT ---
Insulin Management
- -
08/06/2025 Diabetes Management Consult INSULIN PUMP Follow up
80 year old male readmitted for increased SOB and lle swelling. Recently admitted from 07/29 to 07/31 acute on chronic HFpEF. PMH CAD/ CABG, HTN, HLD, diabetes, chf, myasthenia gravis, afib with pacemaker. Prior to admission was using the
medtronic insulin pump, with novolog and Quick set with Guardian sensor. A1C 04/21/2025 7.1%, cr 1.1, eGFR > 60.
Patient is awake alert and oriented out of bed, able to discuss diabetes care. States he has not had early AM low blood sugar at 3AM since insulin pump changes last admission. Fasting glucose this AM 142. Patient for possible discharge today.
Current basal rates
12AM .1
4AM .1
6AM .35
8AM .45
12pm .45
4pm .3
24 hours basal total units 7.3
I:CHO ratio 1:12, Sensitivity 1:40, active insulin 2 hours.
Patient is able to manage pump, program and deliver bolus insulin. Will continue insulin pump.
Discussed with nurse
Will follow.
Diabetes History
- -
Type of Diabetes: 1
Pre-Admission Diabetes Regimen
08/05/25
07:01
Creatinine 1.1
Lab Results
Hemoglobin A1c Cancelled 08/04/25 07:45
Insulin Pump Settings
IP Diabetes Regimen
08/05/25 08/05/25 08/05/25
07:01 11:47 16:52
Glucose 117 H
POC Glucose 155 H 177 H
08/05/25 08/05/25
21:29 23:53
Glucose
POC Glucose 143 H 88
Meal type: Breakfast
Amount consumed: 100%
Patient Education
[2025-08-06] MEDS: LIPITOR 80 MG PO (07:53)
[2025-08-06] MEDS: TOPROL XL 50 MG PO (07:53)
[2025-08-06] MEDS: MESTINON 60 MG PO (07:53)
[2025-08-06] MEDS: DELTASONE 30 MG PO (07:53)
[2025-08-06] MEDS: ZITHROMAX 500 MG PO (07:53)
[2025-08-06] MEDS: ELIQUIS 5 MG PO (07:53)
[2025-08-06] MEDS: ZESTRIL 40 MG PO (07:53)
[2025-08-06 07:54] VITALS: BP 123/71
[2025-08-06 08:11] LABS: Glucose - Point of Care 142 mg/dl (70-99)
[2025-08-06 08:45] LABS: Hematocrit 44.9 % (39.0-52.0); Hemoglobin 15.2 g/dL (13.0-18.0); Mean Corp Hgb Conc. 33.9 g/dL (33.0-37.0); Mean Corpuscular Volume 92.4 fL (80.0-94.0); Nucleated Red Blood Cells % 0 % (-); Platelet Count 167 10^3/uL (130-400); Red Cell Dist. Width 15.5 % (11.5-14.5)
[2025-08-06] MEDS: PT'S OWN INSULIN PUMP - NovoLOG 4.2 UNIT SC (08:48)
[2025-08-06] MEDS: NON-FORMULARY ITEM 32.4 MG SC (08:49)
[2025-08-06] MEDS: FARXIGA 10 MG PO (08:49)
[2025-08-06] MEDS: TYLENOL 650 MG PO (08:54)
[2025-08-06 09:21] LABS: Blood Urea Nitrogen 45 mg/dl (9-20); Calcium 8.9 mg/dl (8.4-10.2); Carbon Dioxide 30 mmol/L (22-30); Chloride 98 mmol/L (98-107); Estimated Creatinine Clearance 52 ml/min; Glucose 126 mg/dl (70-99); Potassium 4.2 mmol/L (3.5-5.1); Sodium 135 mmol/L (135-145); eGFR > 60.00
--- NOTE | 2025-08-06 09:51 | W.PN.CARDCBS ---
Addendum entered and electronically signed by Pierre Pace MD 08/06/25 15:16:
I saw and examined the patient.
The [employer] Cooper's note was reviewed and I agree with the note.
Comment: Briefly, 80-year-old man past medical history of heart failure with preserved ejection fraction and recovered ischemic cardiomyopathy with prior CABG who presents in acute decompensated heart failure
Recently admitted for acute heart failure but following discharge developed worsening edema and dyspnea and was readmitted
With IV diuresis appears euvolemic today on exam
Creatinine is stable in the range of 1.1�1.2
Since standing weight of 190 pounds today. Target dry weight between 190-195 pounds.
Will transition to oral Lasix 80 mg twice a day and discharged on this dose
Stable cardiac status. Outpatient follow-up has been arranged.
Original Note:
Today's Communication / Plan
-
Recommend Lasix 80 mg PO BID upon discharge home
Cardiology follow-up arranged
Impression / Plan
-
Primary Marketing Operations Coordinator: Dr. Murali Wagner
Assessment:
Presented with increased LE edema and feeling poorly 08/03/2025
Recent admission for acute on chronic HFpEF 07/29/2025 until 07/31/2025
Acute on chronic HFimpEF/HFpEF
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
CAD s/p CABG in 2017
Paroxysmal A-fib
Brief postop A-fib s/p CABG in 2017
Sick sinus syndrome status post Medtronic pacemaker 2010, dependent, scheduled for generator change 08/26/25
Hypertension
Hyperlipidemia
Type 1 diabetes, insulin-dependent
Hypothyroidism
Myasthenia gravis
History of TIA/CVA
Chronic venous insufficiency
Possible prior esophageal stricture treated at [facility]
Former smoker
DNR CODE STATUS
ECHO 11/28/24: EF 56%, trace MR, aortic sclerosis, normal right heart with pacing leads identified, PASP 30 to 35 mmHg
Echo 07/31/2025: EF 59%, no WMA, compared to echo 11/2024 there is no significant change
Plan:
-Telemetry reviewed by me is AV paced 08/05/2025
-Weight is down another 5 lbs overnight and patient weighs 190 lbs on my review of VS 08/06/2025. Patient has a dry weight of 190-195 lbs.
-Cre stable at 1.2 on my review of labs 08/06/2025
-Patient was diuresed with Lasix 80 mg IV BID and recommend discharged home with Lasix 80 mg PO BID
-EF preserved by echo 07/31/2025, no need to repeat this admission
-Outpatient dose of Toprol XL 50 mg daily should be continued
-Outpatient dose of lisinopril 40 mg daily should be continued
-Outpatient dose of Jardiance 10 mg daily will transition to [facility] due to formulary changes in the hospital, but patient should resume his Jardiance 10 mg daily upon discharge to home
-Patient has a Medtronic PPM in place and is scheduled for generator change 08/26/2025. [facility] express transmission completed in the ER on 08/03/2025 reviewed by me on 08/04/2025, patient is pacemaker dependent and has 4 months of battery longevity
at last check on 08/03/2025.
-Patient has a history of paroxysmal A-fib first seen following CABG in 2017 and overall burden monitored by device checks.
-Outpatient dose of Eliquis 5 mg BID (age 80, Cre 1.1, wt 91.58 kg) should be continued
HPI: Patient came to the ER today feeling poorly and with RLE weeping and is being admitted with recurrent acute HF and cardiology has been consulted. Patient was just admitted to the hospital with acute HF from 07/29/2025 until 07/31/2025. At
that time he is soon to previous dry weight of 190-195 lbs and patient was discharged down to a weight of 203 lbs on 07/31/2025. Patient was discharged to home on an increased dose of Lasix at 80 mg PO BID, he had only been taking Lasix 80 mg AM
and 40 mg p.m. PO daily prior to admission. EF was stable by echo without any significant valve disease. Patient reports that he felt well when he went home and today was the first time he felt poorly, patient describes feeling poorly, but denies
specific complaints of SOB, NICHOLAS or chest pain. Patient then started to feel water running down his right leg and noticed his leg was weeping and so he returned to the ER.
Progress Note - Marketing Operations Coordinator
Subjective
Date of Service: August 06, 2025
Patient feels well and is anxious for discharge to home, he feels like his legs are improved
Objective
Labs:
08/06/25 07:42
08/06/25 07:42
Labs
Hgb 15.2 g/dL (13.0-18.0) 08/06/25 07:42
Hct 44.9 % (39.0-52.0) 08/06/25 07:42
Plt Count 167 10^3/uL (130-400) 08/06/25 07:42
Sodium 135 mmol/L (135-145) 08/06/25 07:42
Potassium 4.2 mmol/L (3.5-5.1) 08/06/25 07:42
BUN 45 mg/dl (9-20) H 08/06/25 07:42
Creatinine 1.2 mg/dL (0.7-1.3) 08/06/25 07:42
Glucose 126 mg/dl (70-99) H 08/06/25 07:42
Vital Signs and I&O:
Vital Signs
Temp Pulse Resp BP Pulse Ox
97.7 F 73 18 123/71 97
08/06/25 07:54 08/06/25 07:54 08/06/25 07:54 08/06/25 07:54 08/06/25 07:54
Vital Signs
Temp Pulse Resp BP Pulse Ox
97.7 F 73 18 123/71 97
08/06/25 07:54 08/06/25 07:54 08/06/25 07:54 08/06/25 07:54 08/06/25 07:54
Intake & Output
08/04/25 08/05/25 08/06/25 08/07/25
06:59 06:59 06:59 06:59
Intake Total 720 / 720 1200 / 1200 900 / 900 480 / 480
Output Total 2175 / 2175 3560 / 3560 1999 / 1999
Balance -1455 / -1455 -2360 / -2360 -1100 / -1100 480 / 480
Physical Exam
Physical Exam
General: NAD
Heart: AV paced on telemetry
Lungs: RA without audible wheeze
PV: +1 B/L LE edema
[2025-08-06] MEDS: LASIX 80 MG PO (10:16)
[2025-08-06] MEDS: LASIX IV (10:18)
--- NOTE | 2025-08-06 11:12 | W.PN.HOSP.TC ---
Today's Communication/Plan
-
Monitor vital signs see plan
Switch IV Lasix to oral
Discharge today
Time of discharge 38 minutes
Assessment / Plan
Assessment / Plan
General: Well Developed, Well Nourished, No Apparent Distress, Comfortable, Conversant and Obese
HEENT: NormoCephalic, PERRLA
Respiratory: Clear, Non Labored Respirations
Cardiac: Regular Rhythm and Peripheral Edema; No Murmur, Rub or Gallop
GI: Soft, Non Tender, Non Distended and Normal Bowel Sounds
MSK: + edema, improved
Skin: Other (Right harley skin tear r/t water blister and weeping)
Neuro: Awake and AO x 3
Psych: Calm
exertional dyspnea and RLE weeping likely 2/2 acute on chronic HFpEF
pBNP 419, not a good indicator on this patient
EKG: AV dual-paced rhythm
Cardiology following
Did well with IV diuresis, switch Lasix to 80 mg p.o. twice daily
- daily weights
- I & Os
#Paroxysmal Atrial Fibrillation / Atrial Flutter
- continue Eliquis and metoprolol
#Essential Hypertension
- continue lisinopril
#Hyperlipidemia
- continue atorvastatin
#Insulin-Dependent Diabetes Mellitus
- continue with own insulin pump, diabetes INTEGRITY ASSESSOR following
- continue Jardiance
A1c 6.7
Hyponatremia
Resolved
#Hypothyroidism
- continue levothyroxine
#Myasthenia Gravis
- continue prednisone and pyridostigmine
- continue azithromycin as prophylaxis
- continue Zilbrysq out patient
#Coronary Artery Disease
s/p CABG
#Sick Sinus Syndrome
s/p Pacemaker
Code status: DNR
DVT prophylaxis: Eliquis
Anticipated Discharge: Today
Subjective/Interval History
-
Date of Service: August 06, 2025
denies pain
Objective Data
-
Labs:
Laboratory Results
08/06/25
07:42
WBC 9.3
Hgb 15.2
Hct 44.9
Plt Count 167
Sodium 135
Potassium 4.2
Chloride 98
Carbon Dioxide 30
BUN 45 H
Creatinine 1.2
Glucose 126 H
Calcium 8.9
Vital Signs:
Vital Signs
Temp Pulse Resp BP Pulse Ox
97.7 F 73 18 123/71 97
08/06/25 07:54 08/06/25 07:54 08/06/25 07:54 08/06/25 07:54 08/06/25 07:54
I&O
08/05/25 08/06/25 08/07/25
06:59 06:59 06:59
Intake Total 1200 / 1200 900 / 900 480 / 480
Output Total 3560 / 3560 2000 / 2000
Balance -2360 / -2360 -1100 / -1100 480 / 480
--- NOTE | 2025-08-06 11:20 | W.DCSUMMARY ---
Discharge Summary
Discharge Data
Date of Admission: 08/03/25
Date of Discharge: 08/06/25
-
Pending Results: No
Hospital Course
80-year-old male with past medical history of CHF, insulin-dependent diabetes mellitus, hypertension, hyperlipidemia, paroxysmal atrial fibrillation/atrial flutter, hypothyroidism, myasthenia gravis, coronary artery disease, sick sinus syndrome
status post pacemaker came to the hospital with exertional dyspnea and lower extremity swelling consistent with acute on chronic CHF exacerbation. Patient was started on IV diuresis which improved his symptoms. On discharge patient Lasix was
transition to oral. He was also seen by physical therapy who recommended home health. Once his symptoms continue to improve, he was then discharged home with instructions to follow-up with all his physicians outpatient.
Discharge Plan
-
Patient Disposition: Home with Home Care
Discharge Diagnosis/Procedures: Acute on chronic CHF with preserved EF
Paroxysmal atrial fibrillation
Insulin-dependent reduced mellitus
Hyponatremia
Diet: 2 Gram Sodium and Restrict fluids to 64 oz
Activity: As tolerated
Driving Restrictions: As prior to admission
Bathing Restrictions: None
Other Services: VN
Specialty Instructions: Weigh Daily- Call MD for wt gain/loss 3 lbs overnight/5 lbs in 1 week
Instructions: *DCA Heart Failure Instructions
Referrals:
Gary Norton MD [Family Provider, Family Practice] - in less than 1 week
Arcadio Wagner MD [Active, Cardiology] - 08/14/25 9:40 am
Referral Note: You are scheduled to see Dr. Murali Wagner's nurse practitioner, Lanie, at the [facility] on 08/14/2025 at 9:40 AM. You are then scheduled for your pacemaker generator replacement with Dr. Wagner on 08/26/2025 and the
hospital will call you the day before with an arrival time.
Prescriptions:
New
famotidine 20 mg tablet
20 mg PO DAILY Qty: 30 0RF
Continued
atorvastatin 80 MG tablet
80 mg PO DAILY
metoprolol succinate 50 mg Tablet Extended Release 24 Hr
50 mg PO DAILY
pyridostigmine bromide 60 mg tablet
60 mg PO TID@08,,17
levothyroxine 125 mcg tablet
125 mcg PO DAILY@06
azithromycin 500 mg tablet
500 mg PO DAILY
prednisone 20 mg tablet
30 mg PO DAILY
Rx Instructions:
started 07/04/25 for a 30 day supply (pt still states he has a supply) - [facility]
Eliquis 5 mg tablet
5 mg PO BID Qty: 14 0RF
Jardiance 10 mg tablet
10 mg PO DAILY Qty: 30 1RF
lisinopril 40 mg Tablet
40 mg PO DAILY
Zilbrysq 32.4 mg/0.81 mL Syringe
32.4 mg SC DAILY
Patient Own Insulin Pump
1 sliding scale dose SC .VIA NOVOLOG
furosemide [Lasix] 80 mg tablet
80 mg PO BID Qty: 60 0RF
Discharge Orders:
Discharge Patient (As Directed); Ordered 08/06/25
Ordered By: Judd Black
Discharge Date and Time
Discharge Date/Time: 08/06/25 12:24
Print Language: INDONESIAN
[2025-08-06 11:28] VITALS: BP 102/59
--- NOTE | 2025-08-06 12:00 | CM ---
Pt is discharged home with VN. Nephew will drive pt home today
--- NOTE | 2025-08-07 11:36 | W.HF.CON ---
Heart Failure
- LV Function
Left ventricular function study result: LV Ejection fraction >/= 50%
Ejection Fraction Percentage: 59
- ARNI
Patient already on ARNI: No
Heart Failure ARNI Not Indicated: LV Ejection Fraction >/= 40%
- ACEI/ARB
Patient already on ACEI/ARB: Yes
- Beta Sabine
Patient already on Evidence Based Beta Sabine: Yes
- Mineralocorticord Receptor Antagonist
Patient already on MRA: No
Heart Failure MRA Not Indicated: LV Ejection Fraction > 40%
- SGLT-2 Inhibitor
Patient already on SGLT-2 Inhibitor: Yes
- Afib Anticoagulation
Patient already on Anticoagulation for Afib: Yes
- NYHA CHF Classification
NYHA CHF Classification Level: Class III - Symptoms w/ min exertion, interferes w/ nml daily activity
- ACC/AHA Stage
ACC/AHA Stage: Stage C: Symptomatic Heart Failure
== END 2025-08-06 12:24 | disposition home health service (06) | DRG 291 ==
LOC: 4 EAST ACU 17:21
PROVIDERS: Internal Medicine Cardiovascular Disease; Nurse Practitioner Family; ADMITTING PHYSICIAN Internal Medicine; ATTENDING PHYSICIAN Internal Medicine; CONSULT PHYSICIAN Internal Medicine Cardiovascular Disease; EMERGENCY PHYSICIAN Emergency Medicine; FAMILY PHYSICIAN Family Medicine
PROC: 4B02XSZ Measurement of Cardiac Pacemaker, External Approach (ICD-10-PCS; 2025-08-03)
DX: I11.0 Hypertensive heart disease with heart failure (principal); I50.33 Acute on chronic diastolic (congestive) heart failure; E87.1 Hypo-osmolality and hyponatremia; I48.92 Unspecified atrial flutter; I48.0 Paroxysmal atrial fibrillation; E10.9 Type 1 diabetes mellitus without complications; I25.5 Ischemic cardiomyopathy; I25.10 Atherosclerotic heart disease of native coronary artery without angina pectoris; I49.5 Sick sinus syndrome; Z96.41 Presence of insulin pump (external) (internal); E03.9 Hypothyroidism, unspecified; E78.00 Pure hypercholesterolemia, unspecified; I87.2 Venous insufficiency (chronic) (peripheral); G70.00 Myasthenia gravis without (acute) exacerbation; Z66 Do not resuscitate; Z79.4 Long term (current) use of insulin; Z79.01 Long term (current) use of anticoagulants; Z79.84 Long term (current) use of oral hypoglycemic drugs; Z79.890 Hormone replacement therapy; Z79.899 Other long term (current) drug therapy; Z86.73 Personal history of transient ischemic attack (TIA), and cerebral infarction without residual deficits; Z87.891 Personal history of nicotine dependence; Z95.0 Presence of cardiac pacemaker; Z95.1 Presence of aortocoronary bypass graft
CPT/HCPCS: 71046; 80048; 80053; 81003; 82962; 83036; 83735; 83880; 85025; 85027; 87502; 87811; 93005; 96374; 97163; 99285